=== PATIENT | female | born 1995 | race Caucasian/White ===

== ENCOUNTER 2022-11-12 08:57 | Outpatient (RCR) | payer OTHER, SELFPAY | END 2023-03-06 09:00 | disposition home or self-care (01) | LOC: PT 08:57 | PROVIDERS: PCP Nurse Practitioner; Visit Provider Nurse Practitioner | DX: S16.1XXD Strain of muscle, fascia and tendon at neck level, subsequent encounter (principal) | CPT/HCPCS: 97010; 97014; 97110; 97140; 97163 ==

== ENCOUNTER 2023-02-03 19:42 | Outpatient (REF) | payer OTHER, SELFPAY | END 2023-02-03 19:43 | disposition home or self-care (01) | LOC: LAB 19:42 | PROVIDERS: PCP Nurse Practitioner; Visit Provider Obstetrics & Gynecology | DX: N64.52 Nipple discharge (principal) | CPT/HCPCS: 87070 ==

== ENCOUNTER 2023-03-11 14:25 | Outpatient (OUT) | payer OTHER, SELFPAY ==
--- NOTE | 2023-03-11 14:29 | US_ITS ---
[address] [address] Patient Name: KASSIE SHARIF MRN: [id number] date: 1995 Sex: F Assigned Patient Location: Current Patient Location: Accession/Order Number: [id number] Exam Date: 03/11/2023 14:35 Report Date: 03/11/2023 15:45 At the request of: KEO HAND Procedure: US pelvis w/ transvaginal EXAMINATION: US pelvis w/ transvaginal HISTORY: abnormal Menstrual cycle N92.6 COMPARISON: No relevant comparison available. FINDINGS: Transabdominal and transvaginal images The uterus is normal in size, contour and myometrial echotexture, anteverted. Uterus measures 7.9 x 4.8 x 5.6 cm. Areas of anechoic echogenicity in the cervix likely nabothian cysts. Endometrium measures 6.9 mm, normal. The right ovary is normal measuring 2.1 x 1.1 x 1.8 cm. Normal color Doppler flow. The left ovary is normal measuring 2.2 x 1.2 x 1.7 cm. Normal color Doppler flow. Dilated left periadnexal vessels, increased with Valsalva No ascites US/US pelvis w/ transvaginal IMPRESSION: Dilated left periadnexal vessels consider pelvic vascular congestion Electronically authenticated by: BONNIE RAZO Date: 03/11/2023 15:45
--- OUTSIDE RECORDS SUMMARY | 2023-03-11 14:29 | XMS_ITS | CCD ---
Author Name Unknown Address [id number] [place] [address] Organization [facility] Care Team Providers Care [employer]er [employer] Material Name Role Phone Emily MICHAEL Primary Care Physician Caroline SINGH Unavailable Leslie Cardenas Unavailable Unavailable West, DR Reddy Consulting Unavailable REQUEST, NONE LISTED Primary Care Unavaila ble PEACE, DR CROWLEY Attending Unavailable PEACE, DR CROWLEY Admitting Unavailable PEACE, DR CROWLEY Consulting Unavailable PEACE, DR CROWLEY Consulting Unavailable REQUEST, NONE LISTED Primary Care Unavaila ble PEACE, DR CROWLEY Attending Unavailable PEACE, DR CROWLEY Admitting Unavailable PEACE, DR CROWLEY Consulting Unavailable REQUEST, DR NONE LISTED Primary Care Unavaila ble PEACE, DR CROWLEY Attending Unavailable PEACE, DR CROWLEY Admitting Unavailable REQUEST, DR KING LISTED Primary Care Unavaila ble PEACE, DR CROWLEY Attending Unavailable PEACE, DR CROWLEY Admitting Unavailable PEACE, DR CROWLEY Consulting Unavailable REQUEST, DR NONE LISTED Primary Care Unavaila ble PEACE, DR CROWLEY Attending Unavailable PEACE, DR CROWLEY Admitting Unavailable PEACE, DR CROWLEY Consulting Unavailable REQUEST, NONE LISTED Primary Care Unavaila ble PEACE, DR CROWLEY Attending Unavailable PEACE, DR CROWLEY Admitting Unavailable KARASIK, DR REYES Consulting Unavailable REQUEST, NONE LISTED Primary Care Unavaila ble KARASIK, DR REYES Attending Unavailable KARASIK, DR REYES Admitting Unavailable West, DR Reddy Consulting Unavailable FERNANDA, DR GIBSON Consulting Unavailab le KARASIK, DR REYES Consulting Unavailable REQUEST, NONE LISTED Primary Care Unavaila ble KARASIK, DR REYES Attending Unavailable KARASIK, DR REYES Admitting Unavailable PEACE, DR CROWLEY Consulting Unavailable KARASIK, DR REYES Procedure Practitioner Unava ilable PEACE, DR CROWLEY Consulting Unavailable REQUEST, DR NONE LISTED Primary Care Unavaila ble PEACE, DR CROWLEY Attending Unavailable PEACE, DR CROWLEY Admitting Unavailable ZIEBER, DR EVELYN Velasquez Consulting Unavailable PEACE, DR CROWLEY Consulting Unavailable REQUEST, NONE LISTED Primary Care Unavaila ble PEACE, DR CROWLEY Attending Unavailable PEACE, DR CROWLEY Admitting Unavailable PEACE, DR CROWLEY Consulting Unavailable REQUEST, NONE LISTED Primary Care Unavaila ble PEACE, DR CROWLEY Attending Unavailable PEACE, DR CROWLEY Admitting Unavailable KARASIK, DR REYES Consulting Unavailable REQUEST, DR NONE LISTED Primary Care Unavaila ble KARASIK, DR REYES Attending Unavailable KARASIK, DR REYES Admitting Unavailable PEACE, DR CROWLEY Consulting Unavailable REQUEST, DR NONE LISTED Primary Care Unavaila ble PEACE, DR CROWLEY Attending Unavailable PEACE, DR CROWLEY Admitting Unavailable PEACE, DR CROWLEY Consulting Unavailable REQUEST, NONE LISTED Primary Care Unavaila ble PEACE, DR CROWLEY Attending Unavailable PEACE, DR CROWLEY Admitting Unavailable Charlotte, DR Reddy Consulting Unavailable REQUEST, NONE LISTED Primary Care Unavaila ble PEACE, DR CROWLEY Attending Unavailable PEACE, DR CROWLEY Admitting Unavailable PEACE, DR CROWLEY Consulting Unavailable KATELYN ROBERTS Primary Care Physician Katelyn Randolph Primary Care Physician Cecilia Tijerina Unavailable Unavailable KEO HAND Attending Unavailable Lee Weiss Attending Unavailab le Lee Weiss Admitting Unavailab le NO FAMILY, PHYSICIAN Primary Care Unavailable Huang FLORES Attending Unavailable NONE, XXXX Referring Unavailable Huang FLORES Admitting Unavailable Katelyn Randolph Admitting Unavailable Katelyn Randolph Referring Unavailable Katelyn Randolph Attending Unavailable Huang FLORES Referring Unavailable Huang FLORES Attending Unavailable Huang FLORES Consulting Unavailable Huang FLORES Admitting Unavailable Huang FLORES Consulting Unavailable Huang FLORES Consulting Unavailable Drake Genao Attending Unavailable Sheila Smith Attending Unavailable SIDELL, KATELYN W Attending Unavailable SIDELL, KATELYN W Attending Unavailable Tomasa, Katelyn L Attending Unavailable Tomasa, Katelyn L Admitting Unavailable Tomasa, Katelyn L Referring Unavailable Tomasa, Katelyn L Attending Unavailable Tomasa, Katelyn L Attending Unavailable Tomasa, Katelyn L Attending Unavailable Tomasa, Katelyn L Attending Unavailable Tomasa, Katelyn L Attending Unavailable Tomasa, Katelyn L Attending Unavailable SIDELL, KATELYN W Attending Unavailable SIDELL, KATELYN W Admitting Unavailable AMIR, Hasan Admitting Unavailable AMIR, Hasan Attending Unavailable KapWilbert garcia Consulting Unavailable KapWilbert garcia Consulting Unavailable Kapjose, DO Wilbert Schmidt Consulting Unavailable Wilbert Viveros Consulting Unavailable Quintin Murcia Attending Unavailable Huang FLORES Attending Unavailable Huang FLORES Admitting Unavailable Tomasa, Katelyn L Referring Unavailable Tomasa, Katelyn L Admitting Unavailable HAWTHORNEGIOVANNI Attending Unavailable Drake Genao Admitting Unavailable ChadwickDrake Referring Unavailable ChadwickDrake Attending Unavailable Tomasa, Katelyn L Attending Unavailable Tomasa, Katelyn L Admitting Unavailable Tomasa, Katelyn L Referring Unavailable Tomasa, Katelyn L Attending Unavailable Tomasa, Katelyn L Admitting Unavailable Tomasa, Katelyn L Referring Unavailable SIDELL, KATELYN W Attending Unavailable SIDELL, KATELYN W Admitting Unavailable ChadwickDrake Admitting Unavailable ChadwickDrake Attending Unavailable SIDELL, KATELYN Dietz Attending Unavailable Tomasa, Katelyn L Attending Unavailable Nicolas Izquierdo Attending Unavailable Quintin Murcia Attending Unavailable Winnie Paula Attending Unavailable Quintin Murcia Attending Unavailable Winnie Paula Attending Unavailable Allergies Allergy Classification Reported Allergen(s) Allergy Type Date of Onset Reaction(s) Facility (20 sources) Clindamycin; Translations: [clindamycin] Drug Allergy [facility] (1 source) Clindamycin Drug Allergy [facility] Repository (1 source) Cephalexin; Translations: [Keflex] Drug Allergy [facility] Repository Medications Current Medications Medication Drug Class(es) Dates Sig (Normalized) Sig (Original) amoxicillin 500 mg oral tablet (1 source) Penicillin-class Antibacterial Start: 05-13-2022 End: 05-20-2022 take 2 tablets by mouth twice daily amoxicillin 500 mg oral tablet 1,000 mg = 2 tab(s), Oral, BID, X 7 day(s), # 28 tab(s), Refills(s) 0, Pharmacy: [facility]/pharmacy #[id number], 170.2, cm, 05/11/22 21:11:00 EST, Height/Length Dosing, 77.3, kg, 05/11/22 21:11:00 EST, Weight Dosing Start Date: 05/13/22 Stop Date: 05/20/22 Status: Ordered Aspirin (13 sources) Platelet Aggregation Inhibitor, Nonsteroidal Anti-inflammatory Drug Start: 11-09-2022 [facility] ASPIRIN EC 81 MG TABLET [facility] ASPIRIN EC 81 MG TABLET, 0 Start Date: 11/09/22 Status: Ordered Start: 11-02-2022 End: 11-09-2022 take 1 tablet by mouth once daily aspirin 81 mg Oral EC Tab 81 mg = 1 tab(s), Oral, Daily, X 7 day(s), # 7 tab(s), Refills(s) 0, Pharmacy: [facility]/pharmacy #[id number], 172, cm, 11/01/22 13:44:00 EDT, Height/Length Dosing, 73, kg, 11/01/22 13:44:00 EDT, Weight Dosing Start Date: 11/02/22 Stop Date: 11/09/22 Status: Ordered cephalexin 500 mg oral capsule (4 sources) Cephalosporin Antibacterial Start: 12-20-2022 take 1 capsule by mouth every eight hours Keflex 500 mg Cap 500 mg = 1 cap(s), Oral, q8hr, # 30 cap(s), Refills(s) 0, Pharmacy: [facility]/pharmacy #[id number], 170, cm, 12/16/22 14:03:00 EDT, Height/Length Dosing, 71.4, kg, 12/16/22 14:03:00 EDT, Weight Dosing Start Date: 12/20/22 Status: Ordered Start: 11-15-2022 End: 11-20-2022 take 1 capsule by mouth every eight hours Keflex 500 mg Cap 500 mg = 1 cap(s), Oral, q8hr, X 5 day(s), # 15 cap(s), Refills(s) 0, Pharmacy: [facility]/pharmacy #[id number], 170, cm, 11/15/22 10:07:00 EDT, Height/Length Dosing, 71.2, kg, 11/15/22 10:07:00 EDT, Weight Dosing Start Date: 11/15/22 Stop Date: 11/20/22 Status: Ordered dicyclomine hydrochloride 10 mg oral capsule (1 source) Anticholinergic Start: 02-15-2023 End: 02-17-2023 take 1 capsule by mouth four times daily Bentyl 10 mg Cap 10 mg = 1 cap(s), Oral, QID, X 2 day(s), # 8 cap(s), Refills(s) 0, Pharmacy: [facility]/pharmacy #[id number], 170, cm, 02/15/23 15:41:00 EST, Height/Length Dosing, 71.3, kg, 02/15/23 15:41:00 EST, Weight Dosing Start Date: 02/15/23 Stop Date: 02/17/23 Status: Ordered 12 hr dilTIAZem hydrochloride 120 mg extended release oral capsule (5 sources) Calcium Channel Angela Start: 12-21-2022 End: 03-21-2023 take 1 capsule by mouth once daily diltiazem 120 mg oral capsule, extended release 120 mg = 1 cap(s), Oral, Daily, X 30 day(s), # 30 cap(s), Refills(s) 2, Pharmacy: [facility]/pharmacy #[id number], 170, cm, 12/16/22 14:03:00 EDT, Height/Length Dosing, 71.4, kg, 12/16/22 14:03:00 EDT, Weight Dosing Start Date: 12/21/22 Stop Date: 03/21/23 Status: Ordered FLUoxetine 10 mg oral tablet (16 sources) Serotonin Reuptake Inhibitor Start: 12-29-2022 take 1 tablet by mouth once daily fluoxetine 10 mg oral tablet 10 mg = 1 tab(s), Oral, Daily, # 30 tab(s), Refills(s) 3, Pharmacy: [facility]/pharmacy #[id number], 170, cm, 12/16/22 14:03:00 EDT, Height/Length Dosing, 71.4, kg, 12/29/22 13:44:00 EDT, Weight Dosing Start Date: 12/29/22 Status: Ordered Start: 11-22-2022 take 1 capsule by [facility] once daily Prozac 20 mg Cap 20 mg = 1 cap(s), Oral, Daily, # 30 cap(s), Refills(s) 2, Pharmacy: [facility]/pharmacy #[id number], 170, cm, 11/15/22 10:07:00 EDT, Height/Length Dosing, 71.2, kg, 11/15/22 10:07:00 EDT, Weight Dosing Start Date: 11/22/22 Status: Ordered Start: 04-02-2020 take 20 mg by mouth once daily Prozac 20 mg, Oral, Daily, Refills(s) 0 Start Date: 04/02/20 Status: Ordered fluticasone propionate 0.05 mg/actuat metered dose nasal spray (4 sources) Corticosteroid Start: 03-05-2022 Flonase 0.05 mg/inh [place] 2 spray(s), Nasal, Daily, 16 gram, Refill(s) 0, each nostril, [facility]/pharmacy #[id number], 170, cm, 03/04/22 21:57:00 EST, Height/Length Dosing, 76.1, kg, 03/04/22 21:57:00 EST, Weight Dosing Start Date: 03/05/22 Status: Ordered LORazepam 0.5 mg oral tablet (1 source) Benzodiazepine Start: 02-23-2023 take 0.25 mg by mouth once as needed for anxiety Ativan 0.5 mg Tab 0.25 mg = 0.5 tab(s), Oral, Once, PRN as needed for anxiety, # 10 tab(s), Refills(s) 0, Pharmacy: [facility]/pharmacy #[id number], 170, cm, 02/23/23 10:36:00 EST, Height/Length Dosing, 71.7, kg, 02/23/23 10:36:00 EST, Weight Dosing Start Date: 02/23/23 Status: Ordered lurasidone hydrochloride 20 mg oral tablet (6 sources) Atypical Antipsychotic Start: 02-01-2021 take 1 tablet by mouth once daily Latuda 20 mg oral tablet 20 mg = 1 tab(s), Oral, Daily, # 30 tab(s), Refills(s) 0 Start Date: 02/01/21 Status: Ordered meloxicam 7.5 mg oral tablet (2 sources) Nonsteroidal Anti-inflammatory Drug Start: 04-21-2022 take 1 tablet by mouth once daily meloxicam 7.5 mg Tab 7.5 mg = 1 tab(s), Oral, Daily, # 30 tab(s), Refills(s) 0, [id number] 170, cm, 04/20/22 15:18:00 EST, Height/Length Dosing, 74.9, kg, 04/20/22 15:18:00 EST, Weight Dosing Start Date: 04/21/22 Status: Ordered naproxen 500 mg oral tablet (8 sources) Nonsteroidal Anti-inflammatory Drug Start: 12-01-2022 take 1 tablet by mouth twice daily as needed for pain Naprosyn 500 mg Tab 500 mg = 1 tab(s), Oral, BID, PRN for pain, # 20 tab(s), Refills(s) 0, [id number] 170, cm, 11/30/22 23:49:00 EDT, Height/Length Dosing, 71.8, kg, 11/30/22 23:49:00 EDT, Weight Dosing Start Date: 12/01/22 Status: Ordered Start: 09-13-2021 End: 09-20-2021 take 1 tablet by mouth twice daily Naprosyn 500 mg Tab 500 mg = 1 tab(s), Oral, BID, X 7 day(s), # 14 tab(s), Refills(s) 0, [id number] 170, cm, 09/13/21 12:18:00 EDT, Height/Length Dosing, 75, kg, 09/13/21 12:18:00 EDT, Weight Dosing Start Date: 09/13/21 Stop Date: 09/20/21 Status: Ordered polymyxin b 34431 unt/ml / trimethoprim 1 mg/ml ophthalmic solution (1 source) Dihydrofolate Reductase Inhibitor Antibacterial, Polymyxin-class Antibacterial Start: 07-02-2022 End: 07-09-2022 Polytrim 10 mL Soln-Opth 1 drop(s), OPTH, q3hr for 7 day(s), 10 mL, Refill(s) 0, [facility]/pharmacy #[id number], 172, cm, 07/02/22 11:32:00 EDT, Height/Length Dosing, 73.1, kg, 07/02/22 11:32:00 EDT, Weight Dosing Start Date: 07/02/22 Stop Date: 07/09/22 Status: Ordered sertraline 25 mg oral tablet (4 sources) Serotonin Reuptake Inhibitor Start: 01-26-2023 take 1 tablet by mouth once daily sertraline 25 mg Tab 25 mg = 1 tab(s), Oral, Daily, # 30 tab(s), Refills(s) 2, Pharmacy: [facility]/pharmacy #[id number], 170, cm, 12/16/22 14:03:00 EDT, Height/Length Dosing, 71.4, kg, 12/29/22 13:44:00 EDT, Weight Dosing Start Date: 01/26/23 Status: Ordered Zofran ODT 4 mg Tab-Dis (3 sources) Start: 02-10-2023 take 1 tablet by mouth three times daily Zofran ODT 4 mg Tab-Dis 4 mg = 1 tab(s), Oral, TID, # 15 tab(s), Refills(s) 0, Pharmacy: [facility]/pharmacy #[id number], 170, cm, 02/10/23 12:01:00 EST, Height/Length Dosing, 71.2, kg, 02/10/23 12:01:00 EST, Weight Dosing Start Date: 02/10/23 Status: Ordered Completed/Discontinued Medications Medication Drug Class(es) Dates Sig (Normalized) Sig (Original) baclofen 10 mg oral tablet (1 source) gamma-Aminobutyri c Acid-ergic Agonist Start: 11-03-2022 End: 11-13-2022 take 1 tablet by mouth three times daily at bedtime baclofen 10 mg Tab 10 mg = 1 tab(s), Oral, TID, If patient prefers she can take 1 tablet 1 to 2 hours before bedtime instead of taking 3 times daily., X 10 day(s), # 30 tab(s), Refills(s) 0, Pharmacy: [facility]/pharmacy #[id number], 172, cm, 11/01/22 13:44:00 EDT, Height/Length Dos... Start Date: 11/03/22 Stop Date: 11/13/22 Status: Ordered penicillin v potassium 500 mg oral tablet (1 source) Start: 09-13-2021 End: 09-23-2021 take 1 tablet by mouth three times daily penicillin V potassium 500 mg Tab 500 mg = 1 tab(s), Oral, TID, Take one tab by mouth 3 times a day. # 30, X 10 day(s), # 30 tab(s), Refills(s) 0, Pharmacy: [facility]/pharmacy #[id number], 170, cm, 09/13/21 12:18:00 EDT, Height/Length Dosing, 75, kg, 09/13/21 12:18:00 EDT, Weight Dosing Start Date: 09/13/21 Stop Date: 09/23/21 Status: Ordered Problems Active Problems Problem Classification Problem Date Documented Da te Episodic/Chronic Abdominal pain (20 sources) Pain in pelvis; Translations: [Pelvic and perineal pain] Onset: 07-01-2021 04-15-2020 Episodic Anxiety disorders (20 sources) Posttraumatic stress disorder; Translations: [Anxiety] 07-11-2018 Chronic Cardiac dysrhythmias (10 sources) Palpitations; Translations: [Palpitations] Onset: 11-15-2022 Episodic Disorders of teeth and jaw (1 source) Disorder of teeth AND/OR supporting structures; Translations: [Other specified disorders of teeth and supporting structures] Onset: 09-13-2021 Episodic Fluid and electrolyte disorders (1 source) Hypokalemia; Translations: [Hypokalemia] Onset: 02-15-2023 Episodic Headache; including migraine (20 sources) Migraine 05-18-2013 Chronic Headache; including migraine (1 source) Headache; Translations: [Headache, unspecified] Onset: 09-29-2022 Episodic Headache; including migraine (1 source) Headache; including migraine; Translations: [HEADACHE UNSPECIFIED] Onset: 08-12-2021 Inflammation; infection of eye (except that caused by tuberculosis or sexually transmitteddisease) (17 sources) Conjunctivitis; Translations: [Unspecified conjunctivitis] Onset: 07-02-2022 Episodic Inflammatory diseases of female pelvic organs (20 sources) Vulvovaginitis 11-28-2020 Episodic Menstrual disorders (20 sources) 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 Miscellaneous mental health disorders (20 sources) 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 Mood disorders (20 sources) Depressive disorder; Translations: [Moderate mixed bipolar I disorder] Onset: 11-01-2022 05-18-2013 Chronic Nausea and vomiting (1 source) Nausea and vomiting; Translations: [Nausea with vomiting, unspecified] Onset: 02-10-2023 Episodic Nonmalignant breast conditions (1 source) Pain of breast; Translations: [Mastodynia] Onset: 11-15-2022 Episodic Other connective tissue disease (20 sources) Hand pain 04-21-2022 Episodic Other female genital disorders (4 sources) Postcoital and contact bleeding; Translations: [POSTCOITAL AND CONTACT BLEEDING] Onset: 01-20-2022 Chronic Other gastrointestinal disorders (2 sources) Diarrhea; Translations: [Diarrhea, unspecified] Onset: 02-10-2023 Episodic Other nervous system disorders (20 sources) 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 Other nervous system disorders (1 source) Paresthesia; Translations: [Paresthesia of skin] Onset: 11-01-2022 Episodic Other screening for suspected conditions (not mental disorders or infectious disease) (20 sources) Encounter for screening for malignant neoplasm of cervix; Translations: [Abnormal cytological findings in specimens from other organs, systems and tissues] Onset: 04-21-2021 Episodic Other upper respiratory infections (2 sources) Acute upper respiratory infection; Translations: [Acute upper respiratory infection, unspecified] Onset: 05-11-2022 Episodic Residual codes; unclassified (1 source) General finding of observation of patient; Translations: [Other general symptoms and signs] Onset: 03-04-2022 Episodic Residual codes; unclassified (1 source) Patient encounter status; Translations: [Other specified health status] Onset: 11-01-2022 Episodic Skin and subcutaneous tissue infections (20 sources) Cellulitis of lower limb 11-28-2020 Episodic Sprains and strains (20 sources) Neck sprain; Translations: [Sprain of joints and ligaments of unspecified parts of neck, initial encounter] Onset: 11-03-2022 Episodic Substance-related disorders (20 sources) Smoker 06-24-2020 Chronic Comment on above: Added secondary to d ocumentation in Social History. Suicide and intentional self-inflicted injury (20 sources) Suicidal thoughts 01-09-2014 Episodic Unclassified (1 source) CONTACT W/AND (SUSP) EXPOS COVID-19; Translations: [CONTACT W/AND (SUSP) EXPOS COVID-19] Onset: 08-24-2021 Unclassified (20 sources) Patient encounter status 04-21-2022 Past or Other Problems Problem Classification Problem Date Documented Da te Episodic/Chronic Crushing injury or internal injury (20 sources) Laceration of kidney without open wound into abdominal cavity Onset: 03-07-2008 09-21-2019 Episodic Immunizations and screening for infectious disease (4 sources) Contact with and (suspected) exposure to infections with a predominantly sexual mode of transmission; Translations: [CONTCT W EXPOS INFECT SEXUAL TRNSMS] Onset: 01-13-2022 Episodic Other complications of ; puerperium affecting management of mother (1 source) Streptococcus B carrier state complicating childbirth; Translations: [STREP B [place] COMP CHILDBIRTH] Onset: 08-24-2021 Episodic Other complications of (2 sources) Streptococcus B carrier state complicating ; Translations: [STREP B [place] COMP ] Onset: 08-14-2021 Episodic Other complications of (4 sources) Other specified related conditions, third trimester; Translations: [OTH SPEC PREG RELATED COND 3RD TRI] Onset: 08-09-2021 Episodic Other complications of (4 sources) Other specified related conditions, unspecified trimester; Translations: [OTH SPEC PREG RELATED COND UNS TRI] Onset: 06-02-2021 Episodic Other female genital disorders (5 sources) Other specified noninflammatory disorders of vagina; Translations: [OTH SPEC NONINFLAMMATORY D/O VAGINA] Onset: 10-22-2021 Episodic Other gastrointestinal disorders (1 source) Heartburn; Translations: [HEARTBURN] Onset: 08-12-2021 Episodic Other non-traumatic joint disorders (1 source) Pain in right shoulder; Translations: [PAIN IN RIGHT SHOULDER] Onset: 08-12-2021 Episodic Other and delivery including normal (1 source) Single live ; Translations: [SINGLE LIVE ] Onset: 08-24-2021 Episodic Residual codes; unclassified (1 source) 39 weeks gestation of ; Translations: [39 WEEKS GESTATION OF ] Onset: 08-24-2021 Episodic Residual codes; unclassified (1 source) 38 weeks gestation of ; Translations: [38 WEEKS GESTATION OF ] Onset: 08-12-2021 Episodic Residual codes; unclassified (1 source) 32 weeks gestation of ; Translations: [32 WEEKS GESTATION OF ] Onset: 07-01-2021 Episodic Residual codes; unclassified (1 source) 28 weeks gestation of ; Translations: [28 WEEKS GESTATION OF ] Onset: 06-04-2021 Episodic Residual codes; unclassified (1 source) Unspecified blood type, Rh negative; Translations: [UNSPECIFIED BLOOD TYPE RH NEGATIVE] Onset: 06-04-2021 Episodic Umbilical cord complication (1 source) Labor and delivery complicated by cord around neck, without compression, not applicable or unspecified; Translations: [L AND D COMP CORD NECK NO COMPRS NA/UNS] Onset: 08-24-2021 Episodic Unclassified (1 source) orthostatic fainting( Confirmed ) 08-06-2012 Unclassified (20 sources) Onset: 11-05-2012 Resolved: 01-26-2019 09-12-2014 Unclassified (20 sources) orthostatic fainting 08-06-2012 Viral infection (1 source) Disease caused by 2019-nCoV; Translations: [COVID-19] Onset: 01-06-2022 Results Test Name Value Interpretation Reference Range Facility Discharge Note - PTon 2022 Discharge Note - PT [id number] 20 [id number]#1.0 0TIFF [facility] Consent for Treatmenton 02-05 Consent for Treatment [id number] 0TIFF [facility] Medication Consenton 023 Medication Consent [id number] 0TIFF [facility] Ambulatory Visit Summaryon 1 04-26-2022 Ambulatory Visit Summary [facility] Family Medicine Office/Clini c Noteon 02-23-2023 Family Medicine Office/Clinic Note [facility] Comment on above: Result Comment: Elec tronically Signed By: Katelyn Mora.br\Date and Time Signed: 02/23/23 10:59 EST ED Note-Physicianon 02-22-20 ED Note-Physician [facility] Comment on above: Result Comment: Elec tronically Signed By: Marleen Tapia PA-C\.br\Date and Time Signed: 02/15/23 18:28 EST\.br\Electronically Co-Signed By: Nicolas Izquierdo DO\.br\Date and Time Co-Signed: 02/21/23 07:20 EST PT - Progress Noteson 2022 PT - Progress Notes [id number] 20 [id number] 0TIFF Normal [facility] Rota Abon 02-17-2023 Rotavirus Ag IA Ql (Stl) Negative Invalid Interpretation Code Negative [facility] Comment on above: Result Comment: Perf ormed at: [facility] [address] [id number] PhD Filipe Cisneros Performed By: #### 3 [id number] ####[facility] [address] [place] [address] Auto Diffon 02-15-2023 Basophils/100 WBC (Bld) 0.8 % Normal 0.0-2.0 [facility] Comment on above: Order Comment: Order Added by Discern Expert. Performed By: #### 2 [id number] ####[facility] [address] [place] [address] Basophils/Leukocytes Auto (Bld) [Pure # fraction] 0.0 E9/L Normal 0.0-0.2 [facility] Comment on above: Order Comment: Order Added by Discern Expert. Performed By: #### 2 [id number] ####[facility] [address] [place] [address] Eosinophils/100 WBC (Bld) 2.2 % Normal 0.0-8.0 [facility] Comment on above: Order Comment: Order Added by Discern Expert. Performed By: #### 2 [id number] ####[address] [place] [address] Eosinophils/Leukocyte s Auto (Bld) [Pure # fraction] 0.1 E9/L Normal 0.0-0.5 [facility] Comment on above: Order Comment: Order Added by Discern Expert. Performed By: #### 2 [id number] ####[address] [place] [address] Lymphocytes/100 WBC (Bld) 31.6 % Normal 14.0-50.0 [facility] Comment on above: Order Comment: Order Added by Discern Expert. Performed By: #### 2 077714, 7314107, 6460108, 52228602, 7282457, 5328043 ####[address] [address] Lymphocytes/Leukocyte s Auto (Bld) [Pure # fraction] 1.7 E9/L Normal 1.0-4.0 [facility] Comment on above: Order Comment: Order Added by Discern Expert. Performed By: #### 2 804838, 8916412, 2536606, 24518644, 5207671, 4958138 ####[address] [place] [address] Monocytes/100 WBC (Bld) 7.8 % Normal 4.0-14.0 [facility] Comment on above: Order Comment: Order Added by Discern Expert. Performed By: #### 2 635227, 8114521, 5190987, 71049781, 3899854, 5133037 ####[address] [place] [address] Monocytes/Leukocytes Auto (Bld) [Pure # fraction] 0.4 E9/L Normal 0.2-1.0 [facility] Comment on above: Order Comment: Order Added by Discern Expert. Performed By: #### 2 085606, 6124801, 9430750, 77625331, 7131020, 7603531 ####[facility] [address] [place] [address] Neutrophils/100 WBC (Bld) 57.6 % Normal 36.0-75.0 [facility] Comment on above: Order Comment: Order Added by Discern Expert. Performed By: #### 2 110967, 4345125, 1608594, 23897554, 6982661, 1064182 ####[address] [place] [address] Neutrophils/Leukocyte s Auto (Bld) [Pure # fraction] 3.2 E9/L Normal 2.0-7.5 [facility] Comment on above: Order Comment: Order Added by Discern Expert. Performed By: #### 2 601360, 4911843, 0322485, 33224478, 3780576, 4248499 ####[address] [place] [address] C. diff by PCRon 02-15-2023 Clostridium difficile by PCR Negative Normal Negative [facility] Comment on above: Order Comment: Order added by Discern Expert. Result Comment: This test result should be correlated with clinical presentations and medical history by a healthcare provider to determine its clinical significance. Performed By: #### 3 2378389, 26161766, 231764882, [id number] ####[address] [place] [address] CBC w/ Auto Diffon Erythrocyte distribution width (RBC) [Ratio] 12.9 % Normal 10.9-14.2 [facility] Comment on above: Performed By: #### 2 629759, 1048026, 0459442, 54963839, 6034630, 1284431 ####[address] [place] [address] Hematocrit (Bld) [Volume fraction] 36.3 % Normal 34.0-46.0 [facility] Comment on above: Performed By: #### 2 415159, 3871332, 0811397, 63455796, 7780549, 4553157 ####[address] [place] [address] Hemoglobin (Bld) [Mass/Vol] 12.3 g/dL Normal 12.0-16.0 [facility] Comment on above: Performed By: #### 2 518333, 7998117, 3840156, 56755155, 0074481, 5743094 ####[facility] [address] [place] [address] MCH (RBC) [Entitic mass] 29.2 pg Normal 27.0-34.0 [facility] Comment on above: Performed By: #### 2 225252, 8630365, 4053197, 51211526, 9841301, 9176936 ####[facility] [address] [place] [address] MCHC (RBC) [Mass/Vol] 34.0 g/dL Normal 31.4-36.0 [facility] Comment on above: Performed By: #### 2 150410, 2134377, 7847379, 72173551, 7139221, 7179068 ####[facility] [address] [place] [address] MCV (RBC) [Entitic vol] 85.8 fL Normal 80.0-100.0 [facility] Comment on above: Performed By: #### 2 582728, 8537170, 0792973, 98904369, 1042394, 5307054 ####[address] [place] [address] Platelet mean volume (Bld) [Entitic vol] 8.3 fL Normal 6.4-10.8 [facility] Comment on above: Performed By: #### 2 538012, 3763409, 9732684, 24431468, 6090627, 9327029 ####[address] [place] [address] Platelets (Bld) [#/Vol] 246.0 E9/L Normal 150.0-500.0 [facility] Comment on above: Performed By: #### 2 391512, 3536999, 9681648, 24440305, 0982275, 8372001 ####[facility] [address] [place] [address] RBC (Bld) [#/Vol] 4.2 E12/L Low 4.3-5.9 [facility] Comment on above: Performed By: #### 2 280966, 5571372, 7127725, 00404802, 2573241, 5557583 ####[facility] [address] [place] [address] WBC corrected for nucl RBC Auto (Bld) [#/Vol] 5.5 E9/L Normal 4.0-11.0 [facility] Comment on above: Performed By: #### 2 895276, 3987304, 7923729, 66655134, 2839126, 9138734 ####[facility] [address] [place] [address] CDiff PCRon 02-15-2023 Cdiff Specimen Acceptable Acceptable Normal [facility] Comment on above: Performed By: #### 3 6068015, 44552577, 146418560, 1331572237 ####[facility] [address] [place] [address] Order Cancelled No, PCR to follow Normal [facility] Comment on above: Performed By: #### 3 5790631, 73281465, 159874305, 8008869248 ####[facility] [address] [place] [address] CHEMISTRYOrdered By: SYSTEM SYSTEM on 02-15-2023 Albumin [Mass/Vol] 4.1 g/dL Normal 3.3 - 5.0 gm/dL Remisol Chem Albumin/Globulin [Mass ratio] 1.9 {ratio} Normal 1.1 - 2.2 [facility] Alk Phos 66 [iU]/d Normal 21 - 98 Int._Unit/L Remisol Chem ALT 11 [iU]/d Normal 6 - 46 Int._Unit/L Remisol Chem Anion gap [Moles/Vol] 11 mmol/L Normal 6 - 16 mEq/L R emisol Chem AST 12 [iU]/d Normal 5 - 43 Int._Unit/L Remisol Chem Bili Total 0.2 mg/dL Normal 0.0 - 1.1 mg/dL [facility] Calcium [Mass/Vol] 8.7 mg/dL Low 8.9 - 11. 1 mg/dL [facility] Chloride [Moles/Vol] 112 mmol/L High 101 - 1 11 mmol/L Remisol Chem CO2 [Moles/Vol] 22 mmol/L Normal 21 - 31 mmol/L [facility] Creatinine [Mass/Vol] 0.7 mg/dL Normal 0.5 - 1.3 mg/dL [facility] eGFR mL/min/1.73 m2 Normal >=59mL/min/1 .73 m2 [facility] Globulin (S) [Mass/Vol] 2.2 g/dL Normal 1.4 - 4.0 gm/dL [facility] Glucose [Mass/Vol] 80 mg/dL Normal 55 - 199 mg/dL [facility] Lipase Lvl 39 unit/L Normal 13 - 58 unit/L [facility] Magnesium [Mass/Vol] 1.8 mg/dL Normal 1.3 - 2 .4 mg/dL [facility] Potassium [Moles/Vol] 3.1 mmol/L Low 3.5 - 5.3 mmol/L Rem[facility] Chem Protein [Mass/Vol] 6.3 g/dL Normal 6.0 - 7.8 gm/dL [facility] Sodium [Moles/Vol] 142 mmol/L Normal 135 - 145 mmol/L Rem[facility] Urea nitrogen [Mass/Vol] 11 mg/dL Normal 5 - 21 mg/dL [facility] Urea nitrogen/Creatinine [Mass ratio] 16 mg/mg Normal 10 - 20 Remisol Chem CMPon 02-15-2023 Albumin [Mass/Vol] 4.1 g/dL Normal 3.3-5.0 [facility] Comment on above: Performed By: #### 2 800202, 1314708, 1644325, 39782579, 7464464, 5431372 ####[facility] [address] [place] [address] Albumin/Globulin [Mass ratio] 1.9 {ratio} Normal 1.1-2.2 [facility] Comment on above: Performed By: #### 2 966854, 0813198, 8438187, 31261786, 2759107, 8809313 ####[facility] [address] [place] [address] Alk Phos 66 Int._Unit/L Normal 21-98 [facility] Comment on above: Performed By: #### 2 068969, 0732961, 9687800, 21372877, 1467912, 6623259 ####[facility] [address] [place] [address] ALT 11 Int._Unit/L Normal 6-46 [facility] Comment on above: Performed By: #### 2 107432, 7785345, 5998416, 43444034, 2007253, 9787941 ####[address] [place] [address] Anion gap [Moles/Vol] 11 mmol/L Normal 6-16 [facility] Comment on above: Performed By: #### 2 085631, 7540019, 1338729, 29124837, 7215634, 3321726 ####[facility] [address] [place] [address] AST 12 Int._Unit/L Normal 5-43 [facility] Comment on above: Performed By: #### 2 439015, 8203406, 0917765, 64053018, 5010925, 5873636 ####[facility] [address] [place] [address] Bili Total 0.2 mg/dL Normal 0.0-1.1 [facility] Comment on above: Performed By: #### 2 974699, 6639238, 0396053, 61764040, 5924460, 7482316 ####[address] [place] [address] BUN/Creat Ratio 16 No Units Normal 10-20 [facility] Comment on above: Performed By: #### 2 599588, 9500796, 5795358, 52311141, 7976164, 9409772 ####[address] [place] [address] Calcium [Mass/Vol] 8.7 mg/dL Low 8.9-11.1 [facility] Comment on above: Performed By: #### 2 651021, 1840240, 7038015, 23729121, 3354710, 6632698 ####[facility] [address] [place] [address] Chloride [Moles/Vol] 112 mmol/L High 101-111 [facility] Comment on above: Performed By: #### 2 338966, 2779377, 6912579, 71948033, 5382544, 3067440 ####[facility] [address] [place] [address] CO2 [Moles/Vol] 22 mmol/L Normal 21-31 [facility] Comment on above: Performed By: #### 2 401702, 3364303, 8621476, 61364262, 9377877, 0780058 ####[facility] [address] [place] [address] Creatinine [Mass/Vol] 0.7 mg/dL Normal 0.5-1.3 [facility] Comment on above: Performed By: #### 2 790075, 7198969, 6419414, 97089832, 5491656, 0770641 ####[facility] [address] [place] [address] Globulin (S) [Mass/Vol] 2.2 g/dL Normal 1.4-4.0 [facility] Comment on above: Performed By: #### 2 037909, 7784198, 0755863, 45813438, 0678819, 9774285 ####[facility] [address] [place] [address] Glucose [Mass/Vol] 80 mg/dL Normal 55-199 [facility] Comment on above: Performed By: #### 2 193943, 3372995, 6781130, 03622145, 8849726, 6032238 ####[facility] [address] [place] [address] Potassium [Moles/Vol] 3.1 mmol/L Low 3.5-5.3 [facility] Comment on above: Performed By: #### 2 183055, 0472933, 6153577, 19282175, 3000569, 5778506 ####[facility] [address] [place] [address] Protein [Mass/Vol] 6.3 g/dL Normal 6.0-7.8 [facility] Comment on above: Performed By: #### 2 452208, 7638409, 9050665, 56448725, 6894543, 2353904 ####[facility] [address] [place] [address] Sodium [Moles/Vol] 142 mmol/L Normal 135-145 [facility] Comment on above: Performed By: #### 2 873725, 0845302, 6286898, 45352569, 6127802, 0792081 ####[facility] [address] [place] [address] Urea nitrogen [Mass/Vol] 11 mg/dL Normal 5-21 [facility] Comment on above: Performed By: #### 2 469858, 0265740, 5799861, 34777755, 2683266, 9948229 ####[facility] [address] [place] [address] Consent for Treatmenton 02-04 Consent for Treatment [id number] [id number]#1.0 0TIFF Normal [facility] Discharge Instructionson Discharge Instructions [id number]#1. 00TIFF Normal [facility] ED Clinical Summaryon 2022 ED Clinical Summary Normal [facility] ED Note-Nursingon 02-15-2023 ED Note-Nursing Patient does not wan t IV at this time Normal [facility] ED Patient Education Noteon 02-15-2023 ED Patient Education Note Normal [facility] ED Patient Summaryon 023 ED Patient Summary Normal [facility] Fecal WBC Lactoferrinon 02-04 Lactoferrin Ql (Stl) Negative Normal Negative Fish er [facility] Comment on above: Result Comment: The semi-quantitative detection of elevated levels of fecal lactoferrin is a marker for fecal leukocytes and an indication of intestinal inflammation. Performed By: #### 3 4483550, 53551324, 427307081, 6163879592 ####[facility] [address] [place] [address] HEMATOLOGYOrdered By: SYSTEM SYSTEM on 02-15-2023 Basophils/100 WBC (Bld) 0.8 % Normal 0.0 - 2.0 % [facility] HemeAutoSS Basophils/Leukocytes Auto (Bld) [Pure # fraction] 0.0 E9/L Normal 0.0 - 0.2 E9/L [facility] HemeAutoSS Eosinophils/100 WBC (Bld) 2.2 % Normal 0.0 - 8.0 % [facility] HemeAutoSS Eosinophils/Leukocyte s Auto (Bld) [Pure # fraction] 0.1 E9/L Normal 0.0 - 0.5 E9/L [facility] HemeAutoSS Lymphocytes/100 WBC (Bld) 31.6 % Normal 14.0 - 50.0 % [facility] HemeAutoSS Lymphocytes/Leukocyte s Auto (Bld) [Pure # fraction] 1.7 E9/L Normal 1.0 - 4.0 E9/L [facility] HemeAutoSS Monocytes/100 WBC (Bld) 7.8 % Normal 4.0 - 14.0 % [facility] HemeAutoSS Monocytes/Leukocytes Auto (Bld) [Pure # fraction] 0.4 E9/L Normal 0.2 - 1.0 E9/L [facility] HemeAutoSS Neutrophils/100 WBC (Bld) 57.6 % Normal 36.0 - 75.0 % [facility] HemeAutoSS Neutrophils/Leukocyte s Auto (Bld) [Pure # fraction] 3.2 E9/L Normal 2.0 - 7.5 E9/L [facility] HemeAutoSS HEMATOLOGYOrdered By: Deirdre Oates on 02-15-2023 Erythrocyte distribution width (RBC) [Ratio] 12.9 % Normal 10.9 - 14.2 % [facility] HemeAutoSS Hematocrit (Bld) [Volume fraction] 36.3 % Normal 34.0 - 46.0 % [facility] HemeAutoSS Hemoglobin (Bld) [Mass/Vol] 12.3 g/dL Normal 12.0 - 16.0 gm/dL [facility] HemeAutoSS MCH (RBC) [Entitic mass] 29.2 pg Normal 27.0 - 34.0 pg [facility] HemeAutoSS MCHC (RBC) [Mass/Vol] 34.0 g/dL Normal 31.4 - 36.0 gm/dL [facility] HemeAutoSS MCV (RBC) [Entitic vol] 85.8 fL Normal 80.0 - 100.0 fL [facility] HemeAutoSS Platelet mean volume (Bld) [Entitic vol] 8.3 fL Normal 6.4 - 10.8 fL [facility] HemeAutoSS Platelets (Bld) [#/Vol] 246.0 E9/L Normal 150.0 - 500.0 E9/L [facility] HemeAutoSS RBC (Bld) [#/Vol] 4.2 E12/L Low 4.3 - 5.9 E12/L [facility] HemeAutoSS WBC corrected for nucl RBC Auto (Bld) [#/Vol] 5.5 E9/L Normal 4.0 - 11.0 E9/L [facility] HemeAutoSS Lipase Levelon 02-15-2023 Lipase Lvl 39 unit/L Normal 13-58 [facility] Comment on above: Performed By: #### 2 864408, 0565090, 4962799, 55452600, 6662358, 2333603 ####[facility] [address] [place] [address] MICRO OTHER TESTSOrdered By: Lulu Willis on 02-15-2023 Lactoferrin Ql (Stl) Negative 1 (02/15/23 5:19 PM) Normal Negative [facility]ero Comment on above: Interpretive Data: Trent menjivar semi-quantitative detection of elevated levels of fecal lactoferrin is a marker for fecal leukocytes and an indication of intestinal inflammation. Magnesiumon 02-15-2023 Magnesium [Mass/Vol] 1.8 mg/dL Normal 1.3-2.4 [facility] Comment on above: Performed By: #### 2 808046, 1498663, 0718858, 23309901, 2606636, 8769339 ####[facility] [address] [place] [address] SEROLOGYOrdered By: Jordy Leiva on 02-15-2023 HCG.beta subunit (U) [Moles/Vol] Negative Normal [facility] Sero U BetaHcg Qualon 02-15-2023 HCG.beta subunit (U) [Moles/Vol] Negative Normal [facility] Comment on above: Performed By: #### 2 3059818, 62629021 ####[facility] [address] [place] [address] UA With Cult Reflexon 2022 Bilirubin Ql (U) Negative Normal Negative [facility] Comment on above: Performed By: #### 2 7892638, 83337946 ####[facility] [address] [place] [address] Calcium oxalate crystals LM Ql (Urine sed) Present Normal [facility] Comment on above: Performed By: #### 2 0889375, 24540514 ####[facility] [address] [place] [address] Clarity (U) SL CLOUDY Abnormal Clear [facility] Comment on above: Performed By: #### 2 8369000, 49957070 ####[facility] [address] [place] [address] Color (U) YELLOW Normal Yellow [facility] Comment on above: Performed By: #### 2 2730306, 93395648 ####[facility] [address] [place] [address] Epithelial cells.squamous LM.HPF (Urine sed) [#/Area] 0-2 Normal 0-2 [facility] Comment on above: Performed By: #### 2 3445477, 35795387 ####[facility] [address] [place] [address] Glucose Test strip (U) [Mass/Vol] Negative Normal Negative [facility] Comment on above: Performed By: #### 2 3252509, 69029141 ####[facility] [address] [place] [address] Hemoglobin Ql (U) Negative Normal Negative [facility] Comment on above: Performed By: #### 2 0993681, 18463024 ####[address] [address] Ketones (U) [Mass/Vol] TRACE Abnormal Negative [facility] Comment on above: Performed By: #### 2 4085503, 28488962 ####[address] [address] [place].plasma/Lithiu m.RBC (Bld) [Mass ratio] 0-3 Normal 0-3 [facility] Comment on above: Performed By: #### 2 0775481, 06235086 ####[address] [address] Mucus Ql (Urine sed) 2+ Normal Fish [facility] Comment on above: Performed By: #### 2 0516446, 95262739 ####[address] [address] Nitrite Ql (U) Negative Normal Negative [facility] Comment on above: Performed By: #### 2 3060663, 84365603 ####[address] [address] pH (U) 6.0 [pH] Invalid Interpretation Code 5.0-9.0 [facility] Comment on above: Performed By: #### 2 5398519, 19853535 ####[address] [address] Protein (U) [Mass/Vol] Negative Normal Negative [facility] Comment on above: Performed By: #### 2 2808429, 65576009 ####[address] [address] Specific gravity (U) [Rel density] 1.025 Invalid Interpretation Code 1.005-1.030 [facility] Comment on above: Performed By: #### 2 1379060, 89338691 ####[address] [place] [address] Type of Urine collection method Clean Catch Normal [facility] Comment on above: Performed By: #### 2 7075018, 59080975 ####[facility] [address] [place] [address] Urobilinogen Qn (U) 1.0 {Ladonna'U}/dL Normal 0.0-1.0 [facility] Comment on above: Performed By: #### 2 2942986, 34216747 ####[facility] [address] [place] [address] WBC Auto Ql (U) Negative Normal Negative [facility] Comment on above: Performed By: #### 2 0067611, 07786833 ####[address] [address] WBC LM.HPF (Urine sed) [#/Area] 0-5 Normal 0-5 [facility] Comment on above: Performed By: #### 2 4213112, 39673548 ####[facility] [address] [place], [place] [address] URINALYSISOrdered By: Isa Leiva on 02-15-2023 Bilirubin Ql (U) Negative (02/15/23 4:13 PM) Normal Negative [facility]A Auto SS Calcium oxalate crystals LM Ql (Urine sed) Present (02/15/23 4:13 PM) Normal FT UA Auto SS Clarity (U) Slightly Cloudy *ABN* (02/15/23 4:13 PM) Invalid Interpretation Code Clear [facility] UA Auto SS Color (U) Yellow (02/15/23 4:13 PM) Normal Yellow [facility] UA Auto SS Epithelial cells.squamous LM.HPF (Urine sed) [#/Area] 0-2 /HPF Normal 0-2/HPF [facility] UA Aut o SS Glucose Test strip (U) [Mass/Vol] Negative (02/15/23 4:13 PM) Normal Negative [facility] UA Auto SS Hemoglobin Ql (U) Negative (02/15/23 4:13 PM) Normal Negative [facility] UA Auto SS Ketones (U) [Mass/Vol] Trace *ABN* (02/15/23 4:13 PM) Invalid Interpretation Code Negative [facility] UA Auto SS [place].plasma/Lithiu m.RBC (Bld) [Mass ratio] 0-3 /HPF Normal 0-3/HPF [facility] UA Auto SS Mucus Ql (Urine sed) 2+ (02/15/23 4:13 PM) Normal [facility] UA Auto SS Nitrite Ql (U) Negative (02/15/23 4:13 PM) Normal Negative [facility] UA Auto SS pH (U) 6.0 *NA* (02/15/23 4:13 PM) Invalid Interpretation Code 5.0 - 9.0 [facility] UA Auto SS Protein (U) [Mass/Vol] Negative (02/15/23 4:13 PM) Normal Negative [facility] UA Auto SS Specific gravity (U) [Rel density] 1.025 *NA* (02/15/23 4:13 PM) Invalid Interpretation Code 1.005 - 1.030 [facility] UA Auto SS UA Spec Desc Clean Catch (02/15/23 4:13 PM) Normal [facility] UA Auto SS Urobilinogen Qn (U) 1.4386041 {Ladonna'U}/dL Normal 0.0 - 1.0 EU/dL [facility] UA Auto SS WBC Auto Ql (U) Negative (02/15/23 4:13 PM) Normal Negative [facility] UA Auto SS WBC LM.HPF (Urine sed) [#/Area] 0-5 /HPF Normal 0-5/HPF [facility] UA Auto SS eGFRon 02-15-2023 GFR/1.73 sq M.predicted among non-blacks MDRD (S/P/Bld) [Vol rate/Area] mL/min/{1.73_m2} Normal >=59 [facility] Comment on above: Order Comment: Order added by Discern Expert. Performed By: #### 2 086690, 6425637, 9960883, 02473458, 2332812, 8404807 ####[facility] [address] [place] [address] Consent for Treatmenton 02-04 Consent for Treatment [id number] [id number]#1.0 0TIFF Normal [facility] Heart and Vascular Office/Cl inic Noteon 02-14-2023 Heart and Vascular Office/Clinic Note Normal [facility] Comment on above: Result Comment: Elec tronically Signed By: MARK GAMBLE, Huang Tejada.br\Date and Time Signed: 02/14/23 12:01 EST Physician Orderon 02-14-2023 Physician Order [id number]#1.0 0TIFF Normal [facility] Auto Diffon 02-10-2023 Basophils/100 WBC (Bld) 0.4 % Normal 0.0-2.0 [facility] Comment on above: Order Comment: Order Added by Discern Expert. Performed By: #### 2 763355, 14109871, 5395537, 1134939, 9267274, 9551293, 09473368 ####[address] [address] Basophils/Leukocytes Auto (Bld) [Pure # fraction] 0.1 E9/L Normal 0.0-0.2 [facility] Comment on above: Order Comment: Order Added by Discern Expert. Performed By: #### 2 068650, 90084343, 0270975, 2826843, 8431034, 5878196, 39619890 ####[facility] [address] [place] [address] Eosinophils/100 WBC (Bld) 0.7 % Normal 0.0-8.0 [facility] Comment on above: Order Comment: Order Added by Discern Expert. Performed By: #### 2 899490, 16808869, 5024320, 2949132, 7951114, 3182735, 24030490 ####[facility] [address] [place] [address] Eosinophils/Leukocyte s Auto (Bld) [Pure # fraction] 0.1 E9/L Normal 0.0-0.5 [facility] Comment on above: Order Comment: Order Added by Discern Expert. Performed By: #### 2 589482, 22811639, 4744566, 8156211, 6076850, 0958566, 71125462 ####Rodriguez [address] [address] Lymphocytes/100 WBC (Bld) 7.9 % Low 14.0-50.0 [facility] Comment on above: Order Comment: Order Added by Discern Expert. Performed By: #### 2 686748, 53866610, 8688133, 6925647, 7831243, 2819066, 59465332 ####[address] [address] Lymphocytes/Leukocyte s Auto (Bld) [Pure # fraction] 1.1 E9/L Normal 1.0-4.0 [facility] Comment on above: Order Comment: Order Added by Discern Expert. Performed By: #### 2 703023, 88549140, 8196904, 1621596, 8829729, 9496426, 37768295 ####[address] [address] Monocytes/100 WBC (Bld) 7.1 % Normal 4.0-14.0 [facility] Comment on above: Order Comment: Order Added by Discern Expert. Performed By: #### 2 879201, 35981061, 0790682, 9026719, 6503180, 5177579, 49012188 ####[address] [address] Monocytes/Leukocytes Auto (Bld) [Pure # fraction] 1.0 E9/L Normal 0.2-1.0 [facility] Comment on above: Order Comment: Order Added by Discern Expert. Performed By: #### 2 458239, 22651750, 8656308, 3544441, 4728312, 8928253, 78193878 ####[address] [address] Neutrophils/100 WBC (Bld) 83.9 % High 36.0-75.0 [facility] Comment on above: Order Comment: Order Added by Raúl Expert. Performed By: #### 2 037581, 34612496, 6085517, 1268598, 1928807, 6958056, 05858348 ####[address] [place] [address] Neutrophils/Leukocyte s Auto (Bld) [Pure # fraction] 11.4 E9/L High 2.0-7.5 [facility] Comment on above: Order Comment: Order Added by Discern Expert. Performed By: #### 2 599315, 10227984, 4385159, 7590081, 5928873, 6992114, 28363040 ####[facility] [address] [place] [address] B hCG Qualon 02-10-2023 Beta HCG ( test) Ql Negative Normal [facility] Comment on above: Performed By: #### 2 912988, 63737840, 3760764, 5128641, 5788986, 9711164, 14031513 ####[facility] [address] [place] [address] BMPon 02-10-2023 Creatinine [Mass/Vol] 0.8 mg/dL Normal 0.5-1.3 [facility] Comment on above: Performed By: #### 2 687027, 11913248, 9421952, 2442976, 9276986, 2682755, 95623962 ####[facility] [address] [place] [address] Urea nitrogen [Mass/Vol] 17 mg/dL Normal 5-21 [facility] Comment on above: Performed By: #### 2 936033, 39239163, 7777686, 7688907, 8384378, 3652151, 64425472 ####[facility] [address] [place] [address] Urea nitrogen/Creatinine [Mass ratio] 21 No Units High 10-20 [facility] Comment on above: Performed By: #### 2 331128, 62197088, 8829340, 0279323, 4737792, 6209942, 77140641 ####[facility] [address] [place] [address] Anion gap [Moles/Vol] 13 mmol/L Normal 6-16 [facility] Comment on above: Performed By: #### 2 705814, 07549009, 1697504, 4619239, 7652847, 1546125, 90926931 ####[facility] [facility] [address] [place] [address] Calcium [Mass/Vol] 9.5 mg/dL Normal 8.9-11.1 [facility] Comment on above: Performed By: #### 2 618771, 78394622, 1638361, 5891181, 2141254, 0178402, 48860012 ####[facility] [address] [place] [address] Chloride [Moles/Vol] 111 mmol/L Normal 101-111 [facility] Comment on above: Performed By: #### 2 865724, 88707774, 9813452, 6610524, 2733096, 9141710, 82944939 ####[facility] [address] [place] [address] CO2 [Moles/Vol] 20 mmol/L Low 21-31 [facility] Comment on above: Performed By: #### 2 519257, 19180379, 2929922, 9428038, 3791652, 4735852, 90351240 ####[facility] [address] [place] [address] Glucose [Mass/Vol] 103 mg/dL Normal 55-199 [facility] Comment on above: Result Comment: If t his glucose result represents a fasting glucose, interpretation should refer to the following reference range: 55-99 mg/dL Performed By: #### 2 272599, 00386295, 5568757, 6003614, 1124224, 9979382, 44835129 ####[facility] [address] [place] [address] Potassium [Moles/Vol] 3.9 mmol/L Normal 3.5-5.3 [facility] Comment on above: Performed By: #### 2 763903, 94651236, 2360694, 3041450, 6262010, 1354891, 59969898 ####[facility] [address] [place] [address] Sodium [Moles/Vol] 140 mmol/L Normal 135-145 [facility] Comment on above: Performed By: #### 2 904208, 10106079, 8602040, 5025811, 4248711, 3469013, 59088554 ####[facility] [address] [place] [address] CBC w/ Auto Diffon 3 Erythrocyte distribution width (RBC) [Ratio] 12.8 % Normal 10.9-14.2 [facility] Comment on above: Performed By: #### 2 167031, 20797821, 4848497, 2376988, 5089147, 0469502, 58778520 ####[address] [address] Hematocrit (Bld) [Volume fraction] 43.4 % Normal 34.0-46.0 [facility] Comment on above: Performed By: #### 2 675468, 05482846, 8007020, 4392066, 3926374, 4365883, 82318897 ####[facility] [address] [place] [address] Hemoglobin (Bld) [Mass/Vol] 14.3 g/dL Normal 12.0-16.0 [facility] Comment on above: Performed By: #### 2 556225, 75527003, 8479393, 7378982, 1371294, 4809262, 50481691 ####[facility] [address] [place] [address] MCH (RBC) [Entitic mass] 28.8 pg Normal 27.0-34.0 [facility] Comment on above: Performed By: #### 2 122729, 12658453, 7455533, 9066776, 0478611, 4498031, 90479755 ####[facility] [address] [place] [address] MCHC (RBC) [Mass/Vol] 32.9 g/dL Normal 31.4-36.0 [facility] Comment on above: Performed By: #### 2 658772, 63368485, 0561878, 2014251, 0223967, 3182077, 95563710 ####[address] [address] MCV (RBC) [Entitic vol] 87.5 fL Normal 80.0-100.0 [facility] Comment on above: Performed By: #### 2 824569, 96755444, 9813631, 5311340, 3601280, 2273495, 40401787 ####[address] [address] Platelet mean volume (Bld) [Entitic vol] 8.9 fL Normal 6.4-10.8 [facility] Comment on above: Performed By: #### 2 199345, 27069611, 8031456, 6559790, 4456360, 7717282, 02769519 ####[address] [address] Platelets (Bld) [#/Vol] 247.0 E9/L Normal 150.0-500.0 [facility] Comment on above: Performed By: #### 2 969573, 50755522, 5533507, 0940002, 8736628, 9872336, 82599634 ####[address] [address] RBC (Bld) [#/Vol] 5.0 E12/L Normal 4.3-5.9 [facility] Comment on above: Performed By: #### 2 491511, 35948857, 1074416, 6179241, 8951599, 4320279, 55168071 ####[address] [address] WBC corrected for nucl RBC Auto (Bld) [#/Vol] 13.7 E9/L High 4.0-11.0 [facility] Comment on above: Performed By: #### 2 066016, 41961057, 6727657, 7576242, 6046342, 4457970, 22897814 ####[facility] [address] [place] [address] CHEMISTRYOrdered By: SYSTEM SYSTEM on 02-10-2023 Albumin [Mass/Vol] 4.4 g/dL Normal 3.3 - 5.0 gm/dL [facility] Albumin/Globulin [Mass ratio] 1.5 {ratio} Normal 1.1 - 2.2 [facility] ALP [Catalytic activity/Vol] 76 [iU]/d Normal 21 - 98 Int._Unit/L [facility] ALT No additional P-5'-P [Catalytic activity/Vol] 15 [iU]/d Normal 6 - 46 Int._Unit/L [facility] Anion gap [Moles/Vol] 13 mmol/L Normal 6 - 16 mEq/L [facility] AST [Catalytic activity/Vol] 15 [iU]/d Normal 5 - 43 Int._Unit/L [facility] Bilirubin [Mass/Vol] 0.5 mg/dL Normal 0.0 - 1 .1 mg/dL [facility] Bilirubin.direct [Mass/Vol] mg/dL Normal 0.1 - 0.4 mg/dL [facility] Bilirubin.indirect [Mass or moles/Vol] Unable to Calculate mg/dL Invalid Interpretation Code 0.1 - 0.9 mg/dL [facility] Calcium [Mass/Vol] 9.5 mg/dL Normal 8.9 - 11. 1 mg/dL [facility] Chloride [Moles/Vol] 111 mmol/L Normal 101 - 1 11 mmol/L [facility] CO2 [Moles/Vol] 20 mmol/L Low 21 - 31 mmol/L [facility] Creatinine [Mass/Vol] 0.8 mg/dL Normal 0.5 - 1.3 mg/dL [facility] GFR/1.73 sq M.predicted among non-blacks MDRD (S/P/Bld) [Vol rate/Area] 103 mL/min/1.73 m2 Normal >=59mL/min/1 .73 m2 [facility] Comment on above: Interpretive Data: C hronic kidney disease could be indicated at eGFR's of less than 60 mL/min/1.73m2. Kidney failure is indicated at less than 15 mL/min/1.73m2. Globulin (S) [Mass/Vol] 3.0 g/dL Normal 1.4 - 4.0 gm/dL [facility] Glucose [Mass/Vol] 103 mg/dL Normal 55 - 199 mg/dL [facility] Comment on above: Interpretive Data: I f this glucose result represents a fasting glucose, interpretation should refer to the following reference range: 55-99 mg/dL Lipase [Catalytic activity/Vol] 36 U/L Normal 13 - 58 unit/L [facility] Potassium [Moles/Vol] 3.9 mmol/L Normal 3.5 - 5.3 mmol/L [facility] Protein [Mass/Vol] 7.4 g/dL Normal 6.0 - 7.8 gm/dL [facility] Sodium [Moles/Vol] 140 mmol/L Normal 135 - 145 mmol/L [facility] Urea nitrogen [Mass/Vol] 17 mg/dL Normal 5 - 21 mg/dL [facility] Urea nitrogen/Creatinine [Mass ratio] 21 mg/mg High 10 - 20 [facility] Consent for Treatmenton Consent for Treatment [id number] [id number]#1. 00TIFF Normal [facility] Discharge Instructionson Discharge Instructions [id number]#1. 00TIFF Normal [facility] ED Clinical Summaryon 2022 ED Clinical Summary Normal [facility] ED Note-Physicianon 02-11-20 ED Note-Physician Normal [facility] Comment on above: Result Comment: Elec tronically Signed By: Rober Solorzano PA-C\.br\Date and Time Signed: 02/10/23 13:22 EST\.br\Electronically Co-Signed By: Quintin Murcia DO\.br\Date and Time Co-Signed: 02/10/23 17:28 EST ED Patient Education Noteon 02-10-2023 ED Patient Education Note Normal [facility] ED Patient Summaryon 023 ED Patient Summary Normal [facility] HEMATOLOGYOrdered By: SYSTEM SYSTEM on 02-10-2023 Basophils/100 WBC (Bld) 0.4 % Normal 0.0 - 2.0 % [facility]eAutoSS Basophils/Leukocytes Auto (Bld) [Pure # fraction] 0.1 E9/L Normal 0.0 - 0.2 E9/L [facility]eAutoSS Eosinophils/100 WBC (Bld) 0.7 % Normal 0.0 - 8.0 % [facility]eAuto[facility] Eosinophils/Leukocyte s Auto (Bld) [Pure # fraction] 0.1 E9/L Normal 0.0 - 0.5 E9/L [facility]eAutoSS Lymphocytes/100 WBC (Bld) 7.9 % Low 14.0 - 50.0 % [facility]eAuto[facility] Lymphocytes/Leukocyte s Auto (Bld) [Pure # fraction] 1.1 E9/L Normal 1.0 - 4.0 E9/L [facility]eAutoSS Monocytes/100 WBC (Bld) 7.1 % Normal 4.0 - 14.0 % [facility]eAutoSS Monocytes/Leukocytes Auto (Bld) [Pure # fraction] 1.0 E9/L Normal 0.2 - 1.0 E9/L [facility] Neutrophils/100 WBC (Bld) 83.9 % High 36.0 - 75.0 % [facility]eAuto[facility] Neutrophils/Leukocyte s Auto (Bld) [Pure # fraction] 11.4 E9/L High 2.0 - 7.5 E9/L [facility]eAuto[facility] HEMATOLOGYOrdered By: Cece Telles on 02-10-2023 Erythrocyte distribution width (RBC) [Ratio] 12.8 % Normal 10.9 - 14.2 % [facility] Hematocrit (Bld) [Volume fraction] 43.4 % Normal 34.0 - 46.0 % [facility]eAutoSS Hemoglobin (Bld) [Mass/Vol] 14.3 g/dL Normal 12.0 - 16.0 gm/dL [facility]eAuto[facility] MCH (RBC) [Entitic mass] 28.8 pg Normal 27.0 - 34.0 pg [facility]eAuto[facility] MCHC (RBC) [Mass/Vol] 32.9 g/dL Normal 31.4 - 36.0 gm/dL [facility]eAuto[facility] MCV (RBC) [Entitic vol] 87.5 fL Normal 80.0 - 100.0 fL [facility]eAuto[facility] Platelet mean volume (Bld) [Entitic vol] 8.9 fL Normal 6.4 - 10.8 fL [facility] Platelets (Bld) [#/Vol] 247.0 E9/L Normal 150.0 - 500.0 E9/L [facility] RBC (Bld) [#/Vol] 5.0 E12/L Normal 4.3 - 5.9 E12/L [facility] WBC corrected for nucl RBC Auto (Bld) [#/Vol] 13.7 E9/L High 4.0 - 11.0 E9/L [facility] Hep Func Panelon 02-10-2023 Bilirubin.indirect [Mass or moles/Vol] UTC Abnormal 0.1-0.9 [facility] Comment on above: Result Comment: Resu lt verified by Discern Rule. Performed result UT (Unable to Calculate) was sent as an Alpha code due the inability to calculate a valid numeric value. Performed By: #### 2 137830, 07252382, 3357616, 7411304, 3294460, 1369371, 47811781 ####[facility] [address] [place] [address] Albumin [Mass/Vol] 4.4 g/dL Normal 3.3-5.0 [facility] Comment on above: Performed By: #### 2 774622, 52703420, 0109051, 7640106, 1172398, 4576141, 63019277 ####[facility] [address] [place] [address] Albumin/Globulin (S) [Mass conc ratio] 1.5 Normal 1.1-2.2 [facility] Comment on above: Performed By: #### 2 992803, 18660848, 4726139, 4094137, 3099007, 2369714, 34940841 ####[facility] [address] [place] [address] ALP [Catalytic activity/Vol] 76 Int._Unit/L Normal 21-98 [facility] Comment on above: Performed By: #### 2 746052, 68987492, 7112006, 4070398, 0234077, 3709843, 40740223 ####[facility] [address] [place] [address] ALT No additional P-5'-P [Catalytic activity/Vol] 15 Int._Unit/L Normal 6-46 [facility] Comment on above: Performed By: #### 2 649772, 77427807, 9534816, 9043527, 1490959, 3011441, 92259852 ####[facility] [address] [place] [address] AST [Catalytic activity/Vol] 15 Int._Unit/L Normal 5-43 [facility] Comment on above: Performed By: #### 2 228629, 28527011, 0267108, 5866466, 0488786, 0640280, 42487131 ####[facility] [address] [place] [address] Bilirubin [Mass/Vol] 0.5 mg/dL Normal 0.0-1.1 [facility] Comment on above: Performed By: #### 2 326330, 60278805, 2179858, 6538781, 3207821, 5055191, 01183208 ####[facility] [address] [place] [address] Globulin (S) [Mass/Vol] 3.0 g/dL Normal 1.4-4.0 [facility] Comment on above: Performed By: #### 2 824885, 00020446, 4067315, 0497790, 4251958, 6860532, 97891022 ####[facility] [address] [place] [address] Protein [Mass/Vol] 7.4 g/dL Normal 6.0-7.8 [facility] Comment on above: Performed By: #### 2 763380, 30214863, 6191351, 9692678, 7409794, 2762403, 19832425 ####[facility] [address] [place] [address] Bilirubin.direct [Mass/Vol] mg/dL Normal 0.1-0.4 [facility] Comment on above: Performed By: #### 2 130826, 48773704, 9342629, 0958884, 3092595, 0151582, 91605006 ####[facility] [address] [place] [address] Lipase Levelon 02-10-2023 Lipase [Catalytic activity/Vol] 36 U/L Normal 13-58 [facility] Comment on above: Performed By: #### 2 084392, 24160972, 3716139, 6278947, 6101033, 3260539, 99655170 ####[facility] [address] [place] [address] Pre-Arrival Noteon 3 Pre-Arrival Note Normal [facility] SEROLOGYOrdered By: Jordy Leiva on 02-10-2023 Beta HCG ( test) Ql Negative (02/10/23 11:58 AM) Normal [facility] Man Sero eGFRon 02-10-2023 GFR/1.73 sq M.predicted among non-blacks MDRD (S/P/Bld) [Vol rate/Area] 103 mL/min/1.73 m2 Normal >=59 [facility] Comment on above: Order Comment: Order added by Discern Expert. Result Comment: J2Ee Android Developer lina kidney disease could be indicated at eGFR's of less than 60 mL/min/1.73m2. Kidney failure is indicated at less than 15 mL/min/1.73m2. Performed By: #### 2 110483, 99379416, 2157758, 2829583, 3616430, 8091706, 86483371 ####[facility] [address] [place] [address] Consultation Noteon 02-10-20 Consultation Note [id number]#1.0 0TIFF Normal [facility] PT - Progress Noteson 2022 PT - Progress Notes [id number]#1.0 0TIFF Normal [facility] Consent for Treatmenton Consent for Treatment [id number] [id number]#1.0 0TIFF [facility] Family Medicine Office/Clini c Noteon 01-26-2023 Family Medicine Office/Clinic Note Normal [facility] Comment on above: Result Comment: Elec tronically Signed By: Katelyn Mora.br\Date and Time Signed: 01/26/23 13:29 EST Insurance Correspondenceon 03-28-2022 Insurance Correspondence [id number]#1. 00TIFF [facility] Formson 01-24-2023 Forms [facility] NM Hepatobiliary Duct System Imaging w/EFon 01-17-2023 NM Hepatobiliary Duct System Imaging w/EF [facility] Consent for Treatmenton 01-05 Consent for Treatment [id number] [id number]#1.0 0TIFF [facility] Insurance Correspondenceon 03-13-2022 Insurance Correspondence [id number]#1.0 0TIFF [facility] Formson 01-05-2023 Forms [id number]#1.0 0TIFF [facility] Patient Letter [facility] Letter [facility] Stress EKG Tracingson 2022 Stress EKG Tracings [id number]#1. 00TIFF [facility] Consent for Treatmenton 12-07 Consent for Treatment [id number] [id number]#1.0 0TIFF [facility] ECG Stress Exerciseon 2022 ECG Stress Exercise Normal [facility] Insurance Correspondenceon Insurance Correspondence [id number]#1. 00TIFF [facility] Ambulatory Visit Summaryon Ambulatory Visit Summary Normal [facility] Family Medicine Office/Clini c Noteon 12-29-2022 Family Medicine Office/Clinic Note Normal [facility] Comment on above: Result Comment: Elec tronically Signed By: Katelyn Mora\.br\Date and Time Signed: 12/29/22 14:42 EDT Consent for Treatmenton 12-05 Consent for Treatment [id number] [id number]#1.0 0TIFF Normal [facility] Consent for Treatment [id number] [id number]#1.0 0TIFF Normal [facility] Heart and Vascular Office/Cl inic Noteon 12-16-2022 Heart and Vascular Office/Clinic Note Normal [facility] Comment on above: Result Comment: Elec tronically Signed By: Huang FLORES MD\.br\Date and Time Signed: 12/16/22 14:32 EDT Physician Orderon 12-16-2022 Physician Order [id number]#1.0 0TIFF Normal [facility] US Gallbladderon 12-16-2022 US Gallbladder Normal [facility] Holter Monitoron 12-06-2022 Holter Monitor [id number] 10 [id number]#1.0 0CD:127 Normal [facility] Holter Monitoron 12-04-2022 Holter Monitor Normal [facility] Comment on above: Result Comment: Elec tronically Signed By: Huang FLORES MD\.br\Date and Time Signed: 12/04/22 08:27 EDT Consultation Noteon 12-03-19 Consultation Note [id number]#1.0 0CD:127 Normal [facility] Consent for Treatmenton 11-06 Consent for Treatment [id number] [id number]#1.0 0CD:127 [facility] Discharge Instructionson Discharge Instructions [id number]#1. 00CD:127 Normal [facility] ED Clinical Summaryon 2022 ED Clinical Summary Normal [facility] ED Note-Physicianon 12-02-19 ED Note-Physician [facility] Comment on above: Result Comment: Elec tronically Signed By: Winnie Paula DO\.br\Date and Time Signed: 12/01/22 00:09 EDT ED Patient Education Noteon 12-01-2022 ED Patient Education Note Normal [facility] ED Patient Summaryon ED Patient Summary Normal [facility] Consent for Treatmenton 11-06 Consent for Treatment [id number] [id number]#1.0 0CD:127 Normal [facility] Healthon 11-24-19 [facility] Physician Referralon 023 Physician Referral [id number]#1.0 0CD:127 Normal [facility] Population Healthon 11-23-19 [facility] Family Medicine Office/Clini c Noteon 11-19-2022 Family Medicine Office/Clinic Note Normal [facility] Comment on above: Result Comment: Elec tronically Signed By: Katelyn Mora\.br\Date and Time Signed: 11/19/22 09:34 EDT Insurance Correspondenceon 0 11-18-2022 Insurance Correspondence [id number]#1. 00CD:127 [facility] Consent for Treatmenton 11-05 Consent for Treatment [id number] [id number]#1.0 0CD:127 Normal [facility] Auto Diffon 11-15-2022 Basophils/100 WBC (Bld) 0.7 % Normal 0.0-2.0 [facility] Comment on above: Order Comment: Order Added by Discern Expert. Performed By: #### 2 773455, 7406261, 6426111, 7677214, 4765174, 5607099, 27166018, 51456935 ####[address] [place] [address] Basophils/Leukocytes Auto (Bld) [Pure # fraction] 0.1 E9/L Normal 0.0-0.2 [facility] Comment on above: Order Comment: Order Added by Discern Expert. Performed By: #### 2 104185, 5783032, 7211186, 6969995, 6409879, 4061491, 67897530, 15860608 ####[address] [address] Eosinophils/100 WBC (Bld) 2.3 % Normal 0.0-8.0 [facility] Comment on above: Order Comment: Order Added by Discern Expert. Performed By: #### 2 155968, 6105600, 8910476, 5458991, 4804553, 8475436, 94413464, 10172773 ####[address] [address] Eosinophils/Leukocyte s Auto (Bld) [Pure # fraction] 0.2 E9/L Normal 0.0-0.5 [facility] Comment on above: Order Comment: Order Added by Discern Expert. Performed By: #### 2 009461, 1441101, 6144614, 3330645, 9537421, 5806575, 69995323, 88411344 ####[address] [address] Lymphocytes/100 WBC (Bld) 31.3 % Normal 14.0-50.0 [facility] Comment on above: Order Comment: Order Added by Discern Expert. Performed By: #### 2 502646, 9943373, 9564720, 3894714, 8721831, 0133568, 12311309, 65006142 ####[address] [address] Lymphocytes/Leukocyte s Auto (Bld) [Pure # fraction] 2.2 E9/L Normal 1.0-4.0 [facility] Comment on above: Order Comment: Order Added by Raúl Expert. Performed By: #### 2 100637, 5757304, 4359501, 8866077, 2625822, 9162836, 33496908, 55349304 ####[facility] [address] [place] [address] Monocytes/100 WBC (Bld) 7.5 % Normal 4.0-14.0 [facility] Comment on above: Order Comment: Order Added by Discern Expert. Performed By: #### 2 008032, 5986314, 9225335, 7240887, 3668929, 8080236, 63559302, 83177925 ####[address] [place] [address] Monocytes/Leukocytes Auto (Bld) [Pure # fraction] 0.5 E9/L Normal 0.2-1.0 [facility] Comment on above: Order Comment: Order Added by Raúl Expert. Performed By: #### 2 688137, 4292417, 0007271, 6842188, 8230475, 2431494, 94965191, 89093016 ####[address] [place] [address] Neutrophils/100 WBC (Bld) 58.2 % Normal 36.0-75.0 [facility] Comment on above: Order Comment: Order Added by Raúl Expert. Performed By: #### 2 282253, 6620351, 5994906, 8923286, 9377887, 7112033, 95138957, 22357884 ####[facility] [address] [place] [address] Neutrophils/Leukocyte s Auto (Bld) [Pure # fraction] 4.1 E9/L Normal 2.0-7.5 [facility] Comment on above: Order Comment: Order Added by Raúl Expert. Performed By: #### 2 696892, 8809392, 7555409, 7240718, 3574044, 6255497, 35633937, 15670808 ####[facility] [address] [place] [address] BNPon 11-15-2022 Int Ctr BNP Pass Normal [facility] Comment on above: Performed By: #### 2 147557, 9883256, 8186764, 8268901, 8637038, 9273141, 00160398, 83095385 ####[facility] [address] [place] [address] Natriuretic peptide B (Bld) [Mass/Vol] 12 pg/mL Normal 5-80 [facility] Comment on above: Performed By: #### 2 359368, 2679781, 4449434, 6207216, 0351767, 9971681, 11441731, 05588795 ####[facility] [address] [place] [address] CBC w/ Auto Diffon 3 Erythrocyte distribution width (RBC) [Ratio] 13.1 % Normal 10.9-14.2 [facility] Comment on above: Performed By: #### 2 006182, 5646645, 5231402, 4219362, 6934358, 3601602, 99399869, 22798432 ####[facility] [address] [place] [address] Hematocrit (Bld) [Volume fraction] 40.8 % Normal 34.0-46.0 [facility] Comment on above: Performed By: #### 2 931322, 2719088, 2141154, 7968726, 6167025, 0700608, 39933031, 14429700 ####[facility] [address] [place] [address] Hemoglobin (Bld) [Mass/Vol] 13.8 g/dL Normal 12.0-16.0 [facility] Comment on above: Performed By: #### 2 601198, 9794199, 7533702, 1878784, 9381736, 2417439, 61440984, 28582534 ####[facility] [address] [place] [address] MCH (RBC) [Entitic mass] 29.4 pg Normal 27.0-34.0 [facility] Comment on above: Performed By: #### 2 414660, 4091313, 2650497, 2183174, 4601656, 1055888, 59766373, 53348002 ####[address] [address] MCHC (RBC) [Mass/Vol] 33.8 g/dL Normal 31.4-36.0 [facility] Comment on above: Performed By: #### 2 788190, 0958256, 7866311, 8082450, 4354314, 7674798, 17449271, 92646876 ####[address] [address] MCV (RBC) [Entitic vol] 87.0 fL Normal 80.0-100.0 [facility] Comment on above: Performed By: #### 2 203981, 1040953, 2986961, 6400050, 3922596, 1131308, 18486563, 07129968 ####[address] [address] Platelet mean volume (Bld) [Entitic vol] 10.4 fL Normal 6.4-10.8 [facility] Comment on above: Performed By: #### 2 664760, 5208309, 3198176, 8564061, 6301909, 3164311, 20593421, 35447169 ####[address] [address] Platelets (Bld) [#/Vol] 223.0 E9/L Normal 150.0-500.0 [facility] Comment on above: Performed By: #### 2 168199, 1012373, 2545290, 6118521, 3070880, 6874489, 18439073, 16756405 ####[address] [address] RBC (Bld) [#/Vol] 4.7 E12/L Normal 4.3-5.9 [facility] Comment on above: Performed By: #### 2 533096, 8536643, 6933813, 1905231, 9792563, 7840990, 79516401, 70948841 ####[facility] [address] [place] [address] WBC corrected for nucl RBC Auto (Bld) [#/Vol] 7.1 E9/L Normal 4.0-11.0 [facility] Comment on above: Performed By: #### 2 904881, 8958893, 2594887, 6616997, 3576994, 5691944, 78764223, [id number] ####[facility] [id number] [place] [address] CHEMISTRYOrdered By: SYSTEM SYSTEM on 11-15-2022 Albumin [Mass/Vol] 4.4 g/dL Normal 3.3 - 5.0 gm/dL [facility] Remisol Albumin/Globulin [Mass ratio] 1.5 {ratio} Normal 1.1 - 2.2 [facility] Remisol ALP [Catalytic activity/Vol] 89 [iU]/d Normal 21 - 98 Int._Unit/L [facility] Remisol ALT No additional P-5'-P [Catalytic activity/Vol] 14 [iU]/d Normal 6 - 46 Int._Unit/L [facility] Remisol Anion gap [Moles/Vol] 9 mmol/L Normal 6 - 16 mEq/L [facility] Remisol AST [Catalytic activity/Vol] 14 [iU]/d Normal 5 - 43 Int._Unit/L [facility] Bilirubin [Mass/Vol] 0.4 mg/dL Normal 0.0 - 1 .1 mg/dL [facility] Calcium [Mass/Vol] 9.9 mg/dL Normal 8.9 - 11. 1 mg/dL [facility] Chloride [Moles/Vol] 112 mmol/L High 101 - 1 11 mmol/L [facility] CO2 [Moles/Vol] 23 mmol/L Normal 21 - 31 mmol/L [facility] Creatinine [Mass/Vol] 0.8 mg/dL Normal 0.5 - 1.3 mg/dL [facility] GFR/1.73 sq M.predicted among non-blacks MDRD (S/P/Bld) [Vol rate/Area] 104 mL/min/1.73 m2 Normal >=59mL/min/1 .73 m2 [facility] S Globulin (S) [Mass/Vol] 3.0 g/dL Normal 1.4 - 4.0 gm/dL [facility] Glucose [Mass/Vol] 86 mg/dL Normal 55 - 199 mg/dL [facility] Magnesium [Mass/Vol] 2.2 mg/dL Normal 1.3 - 2 .4 mg/dL [facility] Potassium [Moles/Vol] 4.4 mmol/L Normal 3.5 - 5.3 mmol/L [facility] Protein [Mass/Vol] 7.4 g/dL Normal 6.0 - 7.8 gm/dL [facility] Sodium [Moles/Vol] 140 mmol/L Normal 135 - 145 mmol/L [facility] Troponin I.cardiac [Mass/Vol] pg/mL Low 10.10 - 27.10 pg/mL [facility] TSH Qn 2.24 m[IU]/L Normal 0.34 - 5.60 mcIU/mL [facility] Urea nitrogen [Mass/Vol] 13 mg/dL Normal 5 - 21 mg/dL [facility] Urea nitrogen/Creatinine [Mass ratio] 16 mg/mg Normal 10 - 20 [facility] CHEMISTRYOrdered By: Cece Telles on 11-15-2022 Natriuretic peptide B (Bld) [Mass/Vol] 12 pg/mL Normal 5 - 80 pg/mL [facility] [place]itor VALENTINEon 11-15-2022 Albumin [Mass/Vol] 4.4 g/dL Normal 3.3-5.0 [facility] Comment on above: Performed By: #### 2 859518, 2762175, 8870104, 7687050, 1668362, 2474080, 08074220, 32959850 ####[facility] [address] [place] [address] Albumin/Globulin (S) [Mass conc ratio] 1.5 Normal 1.1-2.2 [facility] Comment on above: Performed By: #### 2 331907, 6811569, 3469923, 6553894, 2274271, 7197495, 72433199, 35268427 ####[facility] [address] [place] [address] ALP [Catalytic activity/Vol] 89 Int._Unit/L Normal 21-98 [facility] Comment on above: Performed By: #### 2 156152, 6445106, 8057730, 7758789, 5648669, 7665609, 05362268, 09971843 ####[facility] [address] [place] [address] ALT No additional P-5'-P [Catalytic activity/Vol] 14 Int._Unit/L Normal 6-46 [facility] Comment on above: Performed By: #### 2 018472, 1342608, 1730483, 1129932, 1742145, 8390374, 92768414, 74567922 ####[facility] [address] [place] [address] Anion gap [Moles/Vol] 9 mmol/L Normal 6-16 [facility] Comment on above: Performed By: #### 2 696493, 7459750, 8482352, 1213106, 6787849, 8810349, 88614690, 71929706 ####[facility] [address] [place] [address] AST [Catalytic activity/Vol] 14 Int._Unit/L Normal 5-43 [facility] Comment on above: Performed By: #### 2 927746, 1983809, 7666354, 5172651, 0510719, 3686449, 60107338, 42870999 ####[facility] [address] [place] [address] Bilirubin [Mass/Vol] 0.4 mg/dL Normal 0.0-1.1 [facility] Comment on above: Performed By: #### 2 870560, 1797267, 2102698, 0973437, 5252013, 7577371, 11837571, 29317787 ####[facility] [address] [place] [address] Calcium [Mass/Vol] 9.9 mg/dL Normal 8.9-11.1 [facility] Comment on above: Performed By: #### 2 768685, 8097874, 9736877, 9105110, 7117124, 8920872, 01465483, 16276455 ####[facility] [address] [place] [address] Chloride [Moles/Vol] 112 mmol/L High 101-111 [facility] Comment on above: Performed By: #### 2 604409, 4239738, 7001036, 9184144, 0740959, 2705319, 54417794, 39464448 ####[facility] [address] [place] [address] CO2 [Moles/Vol] 23 mmol/L Normal 21-31 [facility] Comment on above: Performed By: #### 2 927175, 9423655, 4980237, 5965005, 9981745, 3205691, 75843844, 06029396 ####[facility] [address] [place] [address] Creatinine [Mass/Vol] 0.8 mg/dL Normal 0.5-1.3 [facility] Comment on above: Performed By: #### 2 664922, 9357198, 8614770, 6616938, 2763018, 3772207, 97082707, 14795511 ####[facility] [address] [place] [address] Globulin (S) [Mass/Vol] 3.0 g/dL Normal 1.4-4.0 [facility] Comment on above: Performed By: #### 2 892293, 0849221, 8980876, 5285376, 2372413, 9110302, 00144726, 77998058 ####[facility] [address] [place] [address] Glucose [Mass/Vol] 86 mg/dL Normal 55-199 [facility] Comment on above: Result Comment: If t his glucose result represents a fasting glucose, interpretation should refer to the following reference range: 55-99 mg/dL Performed By: #### 2 677691, 5570470, 6672601, 9337423, 9716903, 5025060, 82639191, 91906405 ####[facility] [address] [place] [address] Potassium [Moles/Vol] 4.4 mmol/L Normal 3.5-5.3 [facility] Comment on above: Performed By: #### 2 807068, 7951156, 4150645, 8620396, 6517206, 6825146, 52890362, 37615445 ####[facility] [address] [place] [address] Protein [Mass/Vol] 7.4 g/dL Normal 6.0-7.8 [facility] Comment on above: Performed By: #### 2 884276, 8657292, 3331142, 6465724, 2230127, 5989126, 21193961, 06711220 ####[facility] [address] [place] [address] Sodium [Moles/Vol] 140 mmol/L Normal 135-145 [facility] Comment on above: Performed By: #### 2 433301, 0178138, 0430387, 3037994, 7397194, 5417384, 60832583, 37223528 ####[facility] [address] [place] [address] Urea nitrogen [Mass/Vol] 13 mg/dL Normal 5-21 [facility] Comment on above: Performed By: #### 2 952050, 4203706, 3481517, 9909559, 2714427, 6751497, 52622556, 28057947 ####[facility] [address] [place] [address] Urea nitrogen/Creatinine [Mass ratio] 16 No Units Normal 10-20 [facility] Comment on above: Performed By: #### 2 217179, 4619632, 5645779, 8284643, 7000765, 1566978, 21626570, 46333262 ####[facility] [address] [place] [address] Family Medicine Office/Clini c Noteon 11-15-2022 Family Medicine Office/Clinic Note Normal [facility] Comment on above: Result Comment: Elec tronically Signed By: Chadwick IVY, Drake Sethi.br\Date and Time Signed: 11/15/22 11:33 EDT HEMATOLOGYOrdered By: SYSTEM SYSTEM on 11-15-2022 Basophils/100 WBC (Bld) 0.7 % Normal 0.0 - 2.0 % [facility] Basophils/Leukocytes Auto (Bld) [Pure # fraction] 0.1 E9/L Normal 0.0 - 0.2 E9/L [facility] Eosinophils/100 WBC (Bld) 2.3 % Normal 0.0 - 8.0 % [facility] Eosinophils/Leukocyte s Auto (Bld) [Pure # fraction] 0.2 E9/L Normal 0.0 - 0.5 E9/L [facility] Lymphocytes/100 WBC (Bld) 31.3 % Normal 14.0 - 50.0 % [facility] Lymphocytes/Leukocyte s Auto (Bld) [Pure # fraction] 2.2 E9/L Normal 1.0 - 4.0 E9/L [facility] Monocytes/100 WBC (Bld) 7.5 % Normal 4.0 - 14.0 % [facility] Monocytes/Leukocytes Auto (Bld) [Pure # fraction] 0.5 E9/L Normal 0.2 - 1.0 E9/L [facility] Neutrophils/100 WBC (Bld) 58.2 % Normal 36.0 - 75.0 % [facility] Neutrophils/Leukocyte s Auto (Bld) [Pure # fraction] 4.1 E9/L Normal 2.0 - 7.5 E9/L [facility] HEMATOLOGYOrdered By: Cece Telles on 11-15-2022 Erythrocyte distribution width (RBC) [Ratio] 13.1 % Normal 10.9 - 14.2 % [facility] Hematocrit (Bld) [Volume fraction] 40.8 % Normal 34.0 - 46.0 % [facility] Hemoglobin (Bld) [Mass/Vol] 13.8 g/dL Normal 12.0 - 16.0 gm/dL [facility] MCH (RBC) [Entitic mass] 29.4 pg Normal 27.0 - 34.0 pg [facility] MCHC (RBC) [Mass/Vol] 33.8 g/dL Normal 31.4 - 36.0 gm/dL [facility] MCV (RBC) [Entitic vol] 87.0 fL Normal 80.0 - 100.0 fL [facility] Platelet mean volume (Bld) [Entitic vol] 10.4 fL Normal 6.4 - 10.8 fL [facility] Platelets (Bld) [#/Vol] 223.0 E9/L Normal 150.0 - 500.0 E9/L [facility] RBC (Bld) [#/Vol] 4.7 E12/L Normal 4.3 - 5.9 E12/L [facility] WBC corrected for nucl RBC Auto (Bld) [#/Vol] 7.1 E9/L Normal 4.0 - 11.0 E9/L [facility] Magnesiumon 11-15-2022 Magnesium [Mass/Vol] 2.2 mg/dL Normal 1.3-2.4 [facility] Comment on above: Performed By: #### 2 037156, 9910401, 6561599, 9338046, 7325837, 2994625, 75703913, 97420881 ####[facility] [address] [place] [address] PT - Progress Noteson 2022 PT - Progress Notes [id number] CD:127 Normal [facility] Patient Educationon 11-16-19 Patient Education Normal [facility] Physician Orderon 11-15-2022 Physician Order [id number] 0CD:127 Normal [facility] TSHon 11-15-2022 TSH Qn 2.24 m[IU]/L Normal 0.34-5.60 [facility] Comment on above: Performed By: #### 2 006815, 5094693, 3961904, 9491367, 3444024, 6466850, 01064423, 05008222 ####[facility] [address] [place] [address] Troponinon 11-15-2022 Troponin I.cardiac [Mass/Vol] ng/mL Low 10.10-27.10 [facility] Comment on above: Result Comment: The 95% CI (Confidence Interval) PPV (Positive Predictive Value) for myocardial infarction in females is 38 pg/mL, in males 51 pg/mL. The results should be used in conjunction with clinical conditions of myocardial infarction.(Access High Sensitivity Troponin I Instructions For Use, [employer], October 2017) Performed By: #### 2 533590, 8835527, 0215399, 9199126, 0379864, 9167664, 70613031, 73560937 ####[facility] [address] [place] [address] eGFRon 11-15-2022 GFR/1.73 sq M.predicted among non-blacks MDRD (S/P/Bld) [Vol rate/Area] 104 mL/min/1.73 m2 Normal >=59 [facility] Comment on above: Order Comment: Order added by Discern Expert. Result Comment: J2E[employer] Android Developer lnia kidney disease could be indicated at eGFR's of less than 60 mL/min/1.73m2. Kidney failure is indicated at less than 15 mL/min/1.73m2. Performed By: #### 2 751623, 3507958, 2269530, 9993883, 2667716, 0267827, 36722669, 68635003 ####[facility] [address] [place] [address] Insurance Correspondenceon 0 11-11-2022 Insurance Correspondence [id number]. 00CD:127 Normal [facility] Ambulatory Visit Summaryon 0 11-09-2022 Ambulatory Visit Summary Normal [facility] Family Medicine Office/Clini c Noteon 11-09-2022 Family Medicine Office/Clinic Note Normal [facility] Comment on above: Result Comment: Elec tronically Signed By: Katelyn Mora\.br\Date and Time Signed: 11/09/22 12:37 EDT Physician Referralon 023 Physician Referral [id number] CD:127 Normal [facility] Discharge Instructionson Discharge Instructions [id number] 0CD:127 Normal [facility] Family Medicine Office/Clini c Noteon 11-03-2022 Family Medicine Office/Clinic Note Normal [facility] Comment on above: Result Comment: Elec tronically Signed By: GIOVANNI HAWTHORNE PA-C\.br\Date and Time Signed: 11/03/22 11:04 EDT Patient Educationon 11-04-19 Patient Education Normal [facility] Provider Letteron 11-03-2022 Provider Letter Normal [facility] Provider Letter Normal [facility] Provider Letter Normal [facility] CHEMISTRYOrdered By: SYSTEM SYSTEM on 11-02-2022 Cholesterol [Mass/Vol] 161 mg/dL Normal 120 - 200 mg/dL [facility] Cholesterol in HDL [Mass/Vol] 36 mg/dL Invalid Interpretation Code [facility] Cholesterol in LDL [Mass/Vol] 103 mg/dL Normal <=129mg/dL [facility] Cholesterol in VLDL [Mass/Vol] 14 mg/dL Normal 7 - 40 mg/dL [facility] Triglyceride [Mass/Vol] 71 mg/dL Normal <=149mg/dL [facility] TSH Qn 2.85 m[IU]/L Normal 0.34 - 5.60 mcIU/mL [facility] CHEMISTRYOrdered By: Jayme Reaves on 11-02-2022 HbA1c (Bld) [Mass fraction] 5.2 % Normal <=5.9% [facility]SS Consultation Noteon 11-03-19 Consultation Note Normal [facility] Comment on above: Result Comment: Elec tronically Signed By: Cherelle BURDEN, Sailaja Hilliard\.br\Date and Time Signed: 11/02/22 07:03 EDT\.br\Electronically Co-Signed By: Wilbert Viveros DO\.br\Date and Time Co-Signed: 11/02/22 09:29 EDT Discharge Note-Nursingon Discharge Note-Nursing Normal [facility] HunD4woy 11-02-2022 HbA1c (Bld) [Mass fraction] 5.2 % Normal <=5.9 [facility] Comment on above: Performed By: #### 1 2388751, 062077767, 2068084 ####[facility] [address] [place] [address] Inpatient Clinical Summaryon 11-02-2022 Inpatient Clinical Summary Normal [facility] Inpatient Patient Summaryon 11-02-2022 Inpatient Patient Summary Normal [facility] Interdisciplinary Note - Jeff e Manageron 11-02-2022 Interdisciplinary Note - Production Planner Normal [facility] Comment on above: Result Comment: Elec tronically Signed By: Darin BURDEN, Paloma\.reina\Date and Time Signed: 11/02/22 09:37 EDT Interdisciplinary Note - Juliet n 11-02-2022 Interdisciplinary Note - OT OT ampac six clicks score = no further OT needs. Pt is Ind w/ basic adls/transfers in room. Pt has symmetrical, intact Bue strength/AROM/coordina tion/sensation. Pt denies t/n, heaviness rue this date. DC inpatient OT services. Normal [facility] Interdisciplinary Note - Soc ial Workeron 11-02-2022 Interdisciplinary Note - Clinical Data Management Director Normal [facility] Lipid Panelon 11-02-2022 Cholesterol [Mass/Vol] 161 mg/dL Normal 120-200 [facility] Comment on above: Performed By: #### 1 0469750, 461516087, 9186237 ####[facility] [address] [place] [address] Cholesterol in HDL [Mass/Vol] 36 mg/dL Invalid Interpretation Code [facility] Comment on above: Result Comment: HDL > or equal to 60 mg/dL: Low cardiovascular riskHDL < 40 mg/dL : High cardiovascular risk Performed By: #### 1 4268239, 815376704, 8677960 ####[facility] [address] [place] [address] Cholesterol in LDL [Mass/Vol] 103 mg/dL Normal <=129 [facility] Comment on above: Performed By: #### 1 0481629, 010842881, 9173461 ####[facility] [address] [place] [address] Cholesterol in VLDL [Mass/Vol] 14 mg/dL Normal 7-40 [facility] Comment on above: Performed By: #### 1 3495276, 923221072, 4471639 ####[facility] [address] [place] [address] Triglyceride [Mass/Vol] 71 mg/dL Normal <=149 [facility] Comment on above: Performed By: #### 1 0866330, 553040459, 1024407 ####[facility] [address] [place] [address] Patient Education - Texton 0 11-02-2022 Patient Education - Text Normal [facility] TSH With T4fr Reflexon 11-02 TSH Qn 2.85 m[IU]/L Normal 0.34-5.60 [facility] Comment on above: Performed By: #### 1 2768234, 694699514, 4034167 ####[facility] [address] [place] [address] Auto Diffon 11-01-2022 Basophils/100 WBC (Bld) 1.3 % Normal 0.0-2.0 [facility] Comment on above: Order Comment: Order Added by Discern Expert. Performed By: #### 1 2515622, 44166992, 9059200, 4135837, 89679553, 7549225 ####[facility] [address] [place] [address] Basophils/Leukocytes Auto (Bld) [Pure # fraction] 0.1 E9/L Normal 0.0-0.2 [facility] Comment on above: Order Comment: Order Added by Discern Expert. Performed By: #### 1 5581250, 81020792, 1817219, 5465713, 60222828, 9436045 ####[facility] [address] [place] [address] Eosinophils/100 WBC (Bld) 2.7 % Normal 0.0-8.0 [facility] Comment on above: Order Comment: Order Added by Discern Expert. Performed By: #### 1 1955298, 00960147, 6814096, 9474721, 59524844, 8222274 ####[facility] [address] [place] [address] Eosinophils/Leukocyte s Auto (Bld) [Pure # fraction] 0.2 E9/L Normal 0.0-0.5 [facility] Comment on above: Order Comment: Order Added by Discern Expert. Performed By: #### 1 3892106, 47675836, 7703484, 9215759, 95400224, 2066055 ####[address] [place] [address] Lymphocytes/100 WBC (Bld) 30.1 % Normal 14.0-50.0 [facility] Comment on above: Order Comment: Order Added by Discern Expert. Performed By: #### 1 2035399, 69666235, 4407878, 7494733, 59492170, 4830504 ####[address] [address] Lymphocytes/Leukocyte s Auto (Bld) [Pure # fraction] 2.3 E9/L Normal 1.0-4.0 [facility] Comment on above: Order Comment: Order Added by Discern Expert. Performed By: #### 1 9825985, 01234415, 2522360, 7899034, 47635706, 1329309 ####[address] [place] [address] Monocytes/100 WBC (Bld) 7.1 % Normal 4.0-14.0 [facility] Comment on above: Order Comment: Order Added by Discern Expert. Performed By: #### 1 1820745, 28927096, 2445219, 2844741, 51555630, 6028957 ####[address] [place] [address] Monocytes/Leukocytes Auto (Bld) [Pure # fraction] 0.5 E9/L Normal 0.2-1.0 [facility] Comment on above: Order Comment: Order Added by Discern Expert. Performed By: #### 1 0958823, 54766775, 4190369, 7336215, 10990950, 9524659 ####[facility] [address] [place] [address] Neutrophils/100 WBC (Bld) 58.8 % Normal 36.0-75.0 [facility] Comment on above: Order Comment: Order Added by Discern Expert. Performed By: #### 1 6975438, 59378969, 6782462, 6101911, 60495382, 3109592 ####[facility] [address] [place] [address] Neutrophils/Leukocyte s Auto (Bld) [Pure # fraction] 4.5 E9/L Normal 2.0-7.5 [facility] Comment on above: Order Comment: Order Added by Raúl Expert. Performed By: #### 1 7684834, 13184371, 5855018, 8383492, 53243171, 9654315 ####[facility] [address] [place] [address] BMPon 11-01-2022 Creatinine [Mass/Vol] 0.8 mg/dL Normal 0.5-1.3 [facility] Comment on above: Performed By: #### 1 6100608, 62281840, 5646259, 1185291, 59696436, 2318764 ####[facility] [address] [place] [address] Urea nitrogen [Mass/Vol] 12 mg/dL Normal 5-21 [facility] Comment on above: Performed By: #### 1 2924068, 08840568, 4596679, 0325894, 89617794, 9640795 ####[facility] [address] [place] [address] Urea nitrogen/Creatinine [Mass ratio] 15 No Units Normal 10-20 [facility] Comment on above: Performed By: #### 1 0863290, 78852777, 1102316, 7349732, 87166123, 3780565 ####[facility] [address] [place] [address] Anion gap [Moles/Vol] 10 mmol/L Normal 6-16 [facility] Comment on above: Performed By: #### 1 8587212, 14097328, 7881429, 0537811, 94550933, 9485569 ####[facility] [address] [place] [place] [address] Calcium [Mass/Vol] 9.5 mg/dL Normal 8.9-11.1 [facility] Comment on above: Performed By: #### 1 4535694, 46849921, 4725958, 0264163, 93633745, 3493631 ####[facility] [address] [place] [address] Chloride [Moles/Vol] 114 mmol/L High 101-111 [facility] Comment on above: Performed By: #### 1 6575849, 01220369, 1453793, 7799830, 00998825, 3527348 ####[facility] [address] [place] [place] [address] CO2 [Moles/Vol] 20 mmol/L Low 21-31 [facility] Comment on above: Performed By: #### 1 2216765, 98480000, 8174357, 9407633, 89669288, 8113652 ####[facility] [address] [place] [address] Glucose [Mass/Vol] 99 mg/dL Normal 55-199 [facility] Comment on above: Result Comment: If t his glucose result represents a fasting glucose, interpretation should refer to the following reference range: 55-99 mg/dL Performed By: #### 1 0439345, 65519271, 0048040, 9563305, 28852195, 4963084 ####[facility] [address] [place] [address] Potassium [Moles/Vol] 3.9 mmol/L Normal 3.5-5.3 [facility] Comment on above: Performed By: #### 1 0460558, 01994239, 2199157, 3575323, 53056249, 7836421 ####[facility] [address] [place] [address] Sodium [Moles/Vol] 140 mmol/L Normal 135-145 [facility] Comment on above: Performed By: #### 1 8960226, 34299066, 5328484, 2852106, 33712394, 5753298 ####[address] [place] [address] CBC w/ Auto Diffon 3 Erythrocyte distribution width (RBC) [Ratio] 13.5 % Normal 10.9-14.2 [facility] Comment on above: Performed By: #### 1 8394393, 34085684, 5471102, 2340267, 62067737, 8750174 ####[address] [place] [address] Hematocrit (Bld) [Volume fraction] 40.4 % Normal 34.0-46.0 [facility] Comment on above: Performed By: #### 1 8988652, 59958529, 7659218, 5849135, 26749887, 9704105 ####[address] [address] Hemoglobin (Bld) [Mass/Vol] 13.7 g/dL Normal 12.0-16.0 [facility] Comment on above: Performed By: #### 1 0552897, 56126178, 4778554, 1719025, 15369389, 2707400 ####[facility] [address] [place] [address] MCH (RBC) [Entitic mass] 29.5 pg Normal 27.0-34.0 [facility] Comment on above: Performed By: #### 1 5570801, 50423248, 2457964, 0760391, 57971309, 6575745 ####[address] [place] [address] MCHC (RBC) [Mass/Vol] 34.0 g/dL Normal 31.4-36.0 [facility] Comment on above: Performed By: #### 1 6045735, 15074388, 9420483, 1659526, 03624999, 9566428 ####[facility] [address] [place] [address] MCV (RBC) [Entitic vol] 86.7 fL Normal 80.0-100.0 [facility] Comment on above: Performed By: #### 1 4670521, 78759101, 7873480, 3782386, 87691699, 5515171 ####[address] [place] [address] Platelet mean volume (Bld) [Entitic vol] 8.3 fL Normal 6.4-10.8 [facility] Comment on above: Performed By: #### 1 2227631, 86775529, 9439680, 4459489, 91683048, 3058971 ####[address] [address] Platelets (Bld) [#/Vol] 236.0 E9/L Normal 150.0-500.0 [facility] Comment on above: Performed By: #### 1 9411035, 18225336, 9197898, 8358980, 41500021, 1157962 ####[address] [address] RBC (Bld) [#/Vol] 4.7 E12/L Normal 4.3-5.9 [facility] Comment on above: Performed By: #### 1 8302378, 71635116, 4493805, 9371326, 32849382, 5338244 ####[address] [place] [address] WBC corrected for nucl RBC Auto (Bld) [#/Vol] 7.7 E9/L Normal 4.0-11.0 [facility] Comment on above: Performed By: #### 1 4618281, 52663106, 0101999, 9900291, 60085299, 2422467 ####[facility] [address] [place] [address] CHEMISTRYOrdered By: SYSTEM SYSTEM on 11-01-2022 Anion gap [Moles/Vol] 10 mmol/L Normal 6 - 16 mEq/L [facility] Calcium [Mass/Vol] 9.5 mg/dL Normal 8.9 - 11. 1 mg/dL [facility] Chloride [Moles/Vol] 114 mmol/L High 101 - 1 11 mmol/L [facility] CO2 [Moles/Vol] 20 mmol/L Low 21 - 31 mmol/L [facility] Creatinine [Mass/Vol] 0.8 mg/dL Normal 0.5 - 1.3 mg/dL [facility] GFR/1.73 sq M.predicted among non-blacks MDRD (S/P/Bld) [Vol rate/Area] 104 mL/min/1.73 m2 Normal >=59mL/min/1 .73 m2 [facility] S Glucose [Mass/Vol] 99 mg/dL Normal 55 - 199 mg/dL [facility] Potassium [Moles/Vol] 3.9 mmol/L Normal 3.5 - 5.3 mmol/L [facility] Sodium [Moles/Vol] 140 mmol/L Normal 135 - 145 mmol/L [facility] [place] Troponin I.cardiac [Mass/Vol] 2.50 pg/mL Low 10.10 - 27.10 pg/mL [facility] [place] Urea nitrogen [Mass/Vol] 12 mg/dL Normal 5 - 21 mg/dL [facility] [place] Urea nitrogen/Creatinine [Mass ratio] 15 mg/mg Normal 10 - 20 [facility] [place] CHEMISTRYOrdered By: Lab ROP User on 11-01-2022 Glucose [Mass/Vol] 109 mg/dL High 55 - 99 mg/dL [facility] [facility] [place] Device SN [id number] Invalid Interpretation Code [facility] [place] User ID [id number] Invalid Interpretation Code [facility] [place] Username ANT [email or web address] Invalid Interpretation Code [facility] Sub[place] COAGULATIONOrdered By: Marce Douglass on 11-01-2022 aPTT Coag (PPP) [Time] 34.8 s Normal 25.1 - 36.5 second(s) [facility] Auto Coag INR Coag (PPP) [Relative time] 1.1 {INR} Invalid Interpretation Code [facility] [place] PT Coag (PPP) [Time] 12.3 s Normal 9.4 - 1 2.5 second(s) [facility] [place] Head or Brain w/o Contras ton 11-01-2022 CT Head or Brain w/o Contrast Normal [facility] CTA Headon 11-01-2022 CTA Head Normal [facility] CTA Neckon 11-01-2022 CTA Neck Normal [facility] Capillary Glucose POCon 10-06 Glucose [Mass/Vol] 109 mg/dL High 55-99 [facility] Comment on above: Performed By: #### 2 [id number] ####[facility] [address] [place] [address] Consent for Treatmenton 10-06 Consent for Treatment [id number]#1.0 0CD:127 Normal [facility] ED Clinical Summaryon 2022 ED Clinical Summary Normal [facility] ED Note-Physicianon 11-02-19 ED Note-Physician Normal [facility] Comment on above: Result Comment: Elec tronically Signed By: Karie Newman PA-C\.br\Date and Time Signed: 11/01/22 15:29 EDT\.br\Electronically Co-Signed By: Nicolas Izquierdo DO\.br\Date and Time Co-Signed: 11/01/22 18:34 EDT ED Patient Education Noteon 11-01-2022 ED Patient Education Note Normal [facility] ED Patient Summaryon 023 ED Patient Summary Normal [facility] HEMATOLOGYOrdered By: SYSTEM SYSTEM on 11-01-2022 Basophils/100 WBC (Bld) 1.3 % Normal 0.0 - 2.0 % [facility] HemeAutoSS Basophils/Leukocytes Auto (Bld) [Pure # fraction] 0.1 E9/L Normal 0.0 - 0.2 E9/L [facility] HemeAutoSS Eosinophils/100 WBC (Bld) 2.7 % Normal 0.0 - 8.0 % [facility] HemeAutoSS Eosinophils/Leukocyte s Auto (Bld) [Pure # fraction] 0.2 E9/L Normal 0.0 - 0.5 E9/L [facility] HemeAutoSS Lymphocytes/100 WBC (Bld) 30.1 % Normal 14.0 - 50.0 % [facility] HemeAutoSS Lymphocytes/Leukocyte s Auto (Bld) [Pure # fraction] 2.3 E9/L Normal 1.0 - 4.0 E9/L [facility] HemeAutoSS Monocytes/100 WBC (Bld) 7.1 % Normal 4.0 - 14.0 % [facility] HemeAutoSS Monocytes/Leukocytes Auto (Bld) [Pure # fraction] 0.5 E9/L Normal 0.2 - 1.0 E9/L [facility] HemeAutoSS Neutrophils/100 WBC (Bld) 58.8 % Normal 36.0 - 75.0 % [facility] HemeAutoSS Neutrophils/Leukocyte s Auto (Bld) [Pure # fraction] 4.5 E9/L Normal 2.0 - 7.5 E9/L [facility] HemeAutoSS HEMATOLOGYOrdered By: Deirdre Oates on 11-01-2022 Erythrocyte distribution width (RBC) [Ratio] 13.5 % Normal 10.9 - 14.2 % [facility] HemeAutoSS Hematocrit (Bld) [Volume fraction] 40.4 % Normal 34.0 - 46.0 % [facility] HemeAutoSS Hemoglobin (Bld) [Mass/Vol] 13.7 g/dL Normal 12.0 - 16.0 gm/dL [facility]eAutoSS MCH (RBC) [Entitic mass] 29.5 pg Normal 27.0 - 34.0 pg [facility] HemeAutoSS MCHC (RBC) [Mass/Vol] 34.0 g/dL Normal 31.4 - 36.0 gm/dL [facility] HemeAutoSS MCV (RBC) [Entitic vol] 86.7 fL Normal 80.0 - 100.0 fL [facility] HemeAutoSS Platelet mean volume (Bld) [Entitic vol] 8.3 fL Normal 6.4 - 10.8 fL [facility] HemeAutoSS Platelets (Bld) [#/Vol] 236.0 E9/L Normal 150.0 - 500.0 E9/L [facility] HemeAutoSS RBC (Bld) [#/Vol] 4.7 E12/L Normal 4.3 - 5.9 E12/L [facility] HemeAutoSS WBC corrected for nucl RBC Auto (Bld) [#/Vol] 7.7 E9/L Normal 4.0 - 11.0 E9/L [facility] MRI Brain w/o Contraston MRI Brain w/o Contrast Normal [facility] MRI Spine Cervical w/o Contr jack 11-01-2022 MRI Spine Cervical w/o Contrast Normal [facility] PT & PTTon 11-01-2022 aPTT Coag (PPP) [Time] 34.8 second(s) Normal 25.1-36.5 [facility] Comment on above: Result Comment: Para meter 15 days - 4 weeks 1 - 5 months 6 - 11 months 1 - 5 years 6 - 10 years 11 - 17 years PTT Mean: 35.4 (27.6-45.6) Mean: 33.5 (24.8-40.7) Mean: 32.4 (25.1-40.7) Mean: 31.6 (24.0-39.2) Mean: 31.6 (26.9-38.7) Mean: 31.0 (24.6-38.4) Pediatric Reference ranges were obtained from a study by Osmin Jiménez et al. prepared from 1437 samples obtained at 7 different centers using the same coagulation reagent and instrumentation as [facility] Currently there are no coagulation studies available worldwide for children to 14 days, and no normal ranges. Heparin therapeutic range (represented by Anti-Factor Xa activity of 0.2 - 0.4 U/mL) corresponds to PTT of 56.6 - 109.0 sec. Performed By: #### 1 [id number], 30432361, 0945496, 7545591, 52258598, 9769334 ####[facility] [address] [place] [address] INR Coag (PPP) [Relative time] 1.1 {INR} Invalid Interpretation Code [facility] Comment on above: Result Comment: INR results are specifically intended to assess patients stabilized on long-term Anticoagulation therapy suggested INR?s ?Less Intensive Anticoagulation? 2.0 ? 3.0Conventional Range 3.0 ? 4.5 Performed By: #### 1 [id number], 42818192, 4067459, 8045846, 83871030, 7715007 ####[facility] [address] [place] [address] PT Coag (PPP) [Time] 12.3 second(s) Normal 9.4-12.5 [facility] Comment on above: Result Comment: 15 d ays - 4 weeks 1 - 5 months 6 -11 months 1 ? 5 years 6 ? 10 years 11 -17 years Mean: 11.2 (9.5 ? 12.6) Mean: 11.0 (9.7 ? 12.8) Mean: 11.0 (9.8 ? 13.0) Mean: 11.3 (9.9 ? 13.4) Mean: 11.7 (10.0 ? 14.6) Mean: 11.8 (10.0 - 14.1) Pediatric Reference ranges were obtained from a study by Osmin Jiménez et al. prepared from 1437 samples obtained at 7 different centers using the same coagulation reagent and instrumentation as [facility] Currently there are no coagulation studies available worldwide for children to 14 days, and no normal ranges. Performed By: #### 1 3022724, 41373357, 1016957, 8920591, 77633381, 6177687 ####[facility] [address] [place] [address] RAD - MRI Screening Formon 0 11-01-2022 RAD - MRI Screening Form [id number]#[id number] 0CD:127 Normal [facility] SEROLOGYOrdered By: Brian kelly on 11-01-2022 HCG.beta subunit (U) [Moles/Vol] Negative Normal [facility] Man Sero Troponin 0 Hr.on 11-01-2022 Troponin I.cardiac [Mass/Vol] 2.50 pg/mL Low 10.10-27.10 [facility] Comment on above: Result Comment: The 95% CI (Confidence Interval) PPV (Positive Predictive Value) for myocardial infarction in females is 38 pg/mL, in males 51 pg/mL. The results should be used in conjunction with clinical conditions of myocardial infarction.(Access High Sensitivity Troponin I Instructions For Use, Naty Hopkins, October 2017) Performed By: #### 1 [id number], 31551041, 4009753, 0903462, 34586814, 3197807 ####[facility] [address] [place] [address] U BetaHcg Qualon 11-01-2022 HCG.beta subunit (U) [Moles/Vol] Negative Normal [facility] Comment on above: Performed By: #### 2 6131164 ####[facility] [address] [place] [address] UA With Cult Reflexon 2022 Bacteria LM Ql (Urine sed) TRACE Normal Trace [facility] Comment on above: Performed By: #### 1 9052649 ####[facility] [address] [place] [address] Bilirubin Ql (U) Negative Normal Negative [facility] Comment on above: Performed By: #### 1 6574210 ####[address] [address] Clarity (U) CLEAR Normal Clear [facility] Comment on above: Performed By: #### 1 6776139 ####[facility] [address] [place] [address] Color (U) YELLOW Normal Yellow [facility] Comment on above: Performed By: #### 1 1309269 ####[facility] [address] [place] [address] Epithelial cells.squamous LM.HPF (Urine sed) [#/Area] 0-2 Normal 0-2 [facility] Comment on above: Performed By: #### 1 9821090 ####[facility] [address] [place] [address] Glucose Test strip (U) [Mass/Vol] Negative Normal Negative [facility] Comment on above: Performed By: #### 1 6974170 ####[facility] [address] [place] [address] Hemoglobin Ql (U) TRACE Abnormal Negative [facility] Comment on above: Performed By: #### 1 8839563 ####[facility] [address] [address] Ketones (U) [Mass/Vol] Negative Normal Negative [facility] Comment on above: Performed By: #### 1 3656961 ####[address] [address] [place].plasma/Lithiu m.RBC (Bld) [Mass ratio] 0-3 Normal 0-3 [facility] Comment on above: Performed By: #### 1 2396870 ####[address] [address] Nitrite Ql (U) Negative Normal Negative [facility] Comment on above: Performed By: #### 1 1907420 ####[address] [address] pH (U) 6.0 [pH] Invalid Interpretation Code 5.0-9.0 [facility] Comment on above: Performed By: #### 1 4466901 ####[address] [address] Protein (U) [Mass/Vol] Negative Normal Negative [facility] Comment on above: Performed By: #### 1 4832922 ####[address] [address] Specific gravity (U) [Rel density] 1.010 Invalid Interpretation Code 1.005-1.030 [facility] Comment on above: Performed By: #### 1 4035149 ####[address] [address] Type of Urine collection method Random Urine Normal [facility] Comment on above: Performed By: #### 1 4117959 ####[address] [address] Urobilinogen Qn (U) 0.2 {Ladonna'U}/dL Normal 0.0-1.0 [facility] Comment on above: Performed By: #### 1 7933769 ####[address] [address] WBC Auto Ql (U) Negative Normal Negative [facility] Comment on above: Performed By: #### 1 8649361 ####[facility] [address] [place] [address] WBC LM.HPF (Urine sed) [#/Area] 0-5 Normal 0-5 [facility] Comment on above: Performed By: #### 1 5631148 ####[facility] [address] [place] [address] URINALYSISOrdered By: Brian Dejesus on 11-01-2022 Bacteria LM Ql (Urine sed) Trace /HPF Normal Trace/HPF [facility] UA Auto SS Bilirubin Ql (U) Negative (11/01/22 6:27 PM) Normal Negative [facility] UA Auto SS Clarity (U) Clear (11/01/22 6:27 PM) Normal Clear [facility] UA Auto SS Color (U) Yellow (11/01/22 6:27 PM) Normal Yellow [facility] UA Auto SS Epithelial cells.squamous LM.HPF (Urine sed) [#/Area] 0-2 /HPF Normal 0-2/HPF [facility] UA Aut o SS Glucose Test strip (U) [Mass/Vol] Negative (11/01/22 6:27 PM) Normal Negative [facility] UA Auto SS Hemoglobin Ql (U) Trace *ABN* (11/01/22 6:27 PM) Invalid Interpretation Code Negative [facility] UA Auto SS Ketones (U) [Mass/Vol] Negative (11/01/22 6:27 PM) Normal Negative [facility] UA Auto SS [place].plasma/Lithiu m.RBC (Bld) [Mass ratio] 0-3 /HPF Normal 0-3/HPF [facility] UA Auto SS Nitrite Ql (U) Negative (11/01/22 6:27 PM) Normal Negative [facility] UA Auto SS pH (U) 6.0 *NA* (11/01/22 6:27 PM) Invalid Interpretation Code 5.0 - 9.0 [facility] UA Auto SS Protein (U) [Mass/Vol] Negative (11/01/22 6:27 PM) Normal Negative [facility] UA Auto SS Specific gravity (U) [Rel density] 1.010 *NA* (11/01/22 6:27 PM) Invalid Interpretation Code 1.005 - 1.030 [facility] UA Auto SS UA Spec Desc Random Urine (11/01/22 6:27 PM) Normal [facility] Auto SS Urobilinogen Qn (U) 0.8242019 {Ladonna'U}/dL Normal 0.0 - 1.0 EU/dL [facility] Auto SS WBC Auto Ql (U) Negative (11/01/22 6:27 PM) Normal Negative [facility] Auto SS WBC LM.HPF (Urine sed) [#/Area] 0-5 /HPF Normal 0-5/HPF [facility] Auto SS eGFRon 11-01-2022 GFR/1.73 sq M.predicted among non-blacks MDRD (S/P/Bld) [Vol rate/Area] 104 mL/min/1.73 m2 Normal >=59 [facility] Comment on above: Order Comment: Order added by Discern Expert. Result Comment: J2Ee Android Developer lina kidney disease could be indicated at eGFR's of less than 60 mL/min/1.73m2. Kidney failure is indicated at less than 15 mL/min/1.73m2. Performed By: #### 1 [id number], 77398737, 4263440, 4422827, 23203105, 8863823 ####[facility] [address] [place] [address] CT Head or Brain w/o Contras ton 09-29-2022 CT Head or Brain w/o Contrast Normal [facility] Consent for Treatmenton 09-05 Consent for Treatment [id number] 0CD:127 Normal [facility] Discharge Instructionson Discharge Instructions [id number] CD:127 Normal [facility] ED Clinical Summaryon 2022 ED Clinical Summary Normal [facility] ED Note-Physicianon 09-30-19 ED Note-Physician Normal [facility] Comment on above: Result Comment: Elec tronically Signed By: Winnie Paula DO\Date and Time Signed: 09/29/22 01:41 EDT ED Patient Education Noteon 09-29-2022 ED Patient Education Note Normal [facility] ED Patient Summaryon 023 ED Patient Summary Normal [facility] RAD - Preliminary Cat Scan R eporton 09-29-2022 RAD - Preliminary Cat Scan Report [id number]#1.0 0CD:127 Normal [facility] Family Medicine Office/Clini c Noteon 07-02-2022 Family Medicine Office/Clinic Note Normal [facility] Comment on above: Result Comment: Elec tronically Signed By: KATELYN ROBERTS CNP\.br\Date and Time Signed: 07/02/22 12:45 EDT Patient Educationon 07-03-19 Patient Education Normal [facility] Coding Summary.on 06-23-[address] [facility] Medicine Office/Clini c Noteon 06-23-2022 [facility] Medicine Office/Clinic Note Normal [facility] Comment on above: Result Comment: Elec tronically Signed By: KATELYN ROBERTS CNP\.br\Date and Time Signed: 06/23/22 21:34 EDT\.br\Electronically Co-Signed By: Deandre Brizuela\.br\Date and Time Co-Signed: 06/22/22 16:44 EDT Patient Educationon 06-23-19 Patient Education Normal [facility] XR Hand 3+ Views Righton XR Hand 3+ Views Right [facility] Consent for Treatmenton 06-05 Consent for Treatment [id number]#1.0 0CD:127 Normal [facility] Family Medicine Office/Clini c Noteon 05-23-2022 [facility] Medicine Office/Clinic Note Normal [facility] Comment on above: Result Comment: Elec tronically Signed By: KATELYN ROBERTS CNP\.br\Date and Time Signed: 05/23/22 15:36 EDT Patient Educationon 05-24-19 Patient Education Normal [facility] Coding Summary.on 05-14-2022 Coding Summary. Normal [facility] Ambulatory Visit Summaryon 0 05-13-2022 Ambulatory Visit Summary Normal [facility] Family Medicine Office/Clini c Noteon 05-13-2022 Family Medicine Office/Clinic Note Normal [facility] Comment on above: Result Comment: Elec tronically Signed By: CODY Smith APRN, [place] X\.br\Date and Time Signed: 05/13/22 11:29 EST Patient Educationon 05-14-19 23 Patient Education Normal [facility] Discharge Instructionson Discharge Instructions [id number]. 00CD:127 Normal [facility] ED Clinical Summaryon 2022 ED Clinical Summary Normal [facility] ED Note-Physicianon 05-13-19 ED Note-Physician Normal [facility] Comment on above: Result Comment: Elec tronically Signed By: Quintin Murcia DO\.br\Date and Time Signed: 05/11/22 23:35 EST ED Patient Education Noteon 05-12-2022 ED Patient Education Note Normal [facility] ED Patient Summaryon 023 ED Patient Summary Normal [facility] Grp A Strp PCRon 05-12-2022 Group A Strep Negative Normal [facility] Comment on above: Order Comment: Order Added on by Discern Rule. Result Comment: Test ing performed using DNA amplification. Performed By: #### 2 [id number], [id number] ####[facility] [address] [place] [address] Grp A Strp Intrl Ctrl Pass Normal Fis [facility] Comment on above: Order Comment: Order Added on by Discern Rule. Performed By: #### 2 [id number], [id number] ####[facility] [address] [place] [address] Rapid Strep w/rfxon 05-13-19 S. pyogenes Ag IA.rapid Ql (Throat) Negative Normal Negative [facility] Comment on above: Performed By: #### 2 [id number], [id number] ####[facility] [address] [place] [address] XR Chest Single Viewon 05-12 XR Chest Single View Normal Fish er [facility] Consent for Treatmenton 03-0 Consent for Treatment [id number] 0CD:127 Normal [facility] MICRO OTHER TESTSOrdered By: Brian Dejesus on 05-11-2022 S. pyogenes Ag IA.rapid Ql (Throat) Negative (05/11/22 10:19 PM) Normal Negative [facility] [place] Sero Coding Summary.on 04-29-2022 Coding Summary. Normal [facility] Auto Diffon 04-27-2022 Basophils/100 WBC (Bld) 0.9 % Normal 0.0-2.0 [facility] Comment on above: Order Comment: Order Added by Discern Expert. Performed By: #### 2 272763, 4240510, 7823630, 16163075, 9319807, 7755933 ####[facility] [address] [place] [address] Basophils/Leukocytes Auto (Bld) [Pure # fraction] 0.1 E9/L Normal 0.0-0.2 [facility] Comment on above: Order Comment: Order Added by Discern Expert. Performed By: #### 2 742957, 2310407, 7500781, 97178306, 7118327, 6378314 ####[facility] [address] [place] [address] Eosinophils/100 WBC (Bld) 2.7 % Normal 0.0-8.0 [facility] Comment on above: Order Comment: Order Added by Discern Expert. Performed By: #### 2 457742, 2341019, 0926878, 94287400, 1108355, 8554602 ####[facility] [address] [place] [address] Eosinophils/Leukocyte s Auto (Bld) [Pure # fraction] 0.2 E9/L Normal 0.0-0.5 [facility] Comment on above: Order Comment: Order Added by Discern Expert. Performed By: #### 2 531547, 5872567, 6249247, 65693990, 7078641, 7610477 ####[facility] [address] [place] [address] Lymphocytes/100 WBC (Bld) 30.4 % Normal 14.0-50.0 [facility] Comment on above: Order Comment: Order Added by Discern Expert. Performed By: #### 2 309393, 4699221, 9084674, 00748369, 9173150, 5010275 ####[place] [address] [place] [address] Lymphocytes/Leukocyte s Auto (Bld) [Pure # fraction] 2.1 E9/L Normal 1.0-4.0 [facility] Comment on above: Order Comment: Order Added by Discern Expert. Performed By: #### 2 046994, 9815866, 8197221, 35106262, 5472643, 5635224 ####[address] [address] Monocytes/100 WBC (Bld) 7.2 % Normal 4.0-14.0 [facility] Comment on above: Order Comment: Order Added by Discern Expert. Performed By: #### 2 765982, 5098664, 4131048, 90719604, 4573397, 0021071 ####[place] [place] [address] Monocytes/Leukocytes Auto (Bld) [Pure # fraction] 0.5 E9/L Normal 0.2-1.0 [facility] Comment on above: Order Comment: Order Added by Discern Expert. Performed By: #### 2 090568, 6875285, 5057648, 71704579, 5764942, 6181329 ####[address] [place] [address] Neutrophils/100 WBC (Bld) 58.8 % Normal 36.0-75.0 [facility] Comment on above: Order Comment: Order Added by Discern Expert. Performed By: #### 2 766859, 0141362, 9390320, 19737308, 2317383, 3606155 ####[address] [place] [address] Neutrophils/Leukocyte s Auto (Bld) [Pure # fraction] 4.1 E9/L Normal 2.0-7.5 [facility] Comment on above: Order Comment: Order Added by Discern Expert. Performed By: #### 2 897788, 8989052, 7318457, 06743044, 6134756, 8586781 ####[facility] [address] [place] [address] BMPon 04-27-2022 Anion gap [Moles/Vol] 15 mmol/L Normal 6-16 [facility] Comment on above: Performed By: #### 2 127749, 4587167, 9458542, 16465754, 9186921, 4873277 ####[facility] [address] [place] [address] Calcium [Mass/Vol] 9.4 mg/dL Normal 8.9-11.1 [facility] Comment on above: Performed By: #### 2 572893, 8309227, 8702820, 10650556, 0850196, 3390542 ####[facility] [address] [place] [address] Chloride [Moles/Vol] 104 mmol/L Normal 101-111 [facility] Comment on above: Performed By: #### 2 802461, 6654372, 2865376, 99245606, 5300954, 7644237 ####[facility] [address] [place] [address] CO2 [Moles/Vol] 23 mmol/L Normal 21-31 [facility] Comment on above: Performed By: #### 2 834878, 7483654, 2753416, 16573342, 6305792, 5066011 ####[facility] [address] [place] [address] Creatinine [Mass/Vol] 0.8 mg/dL Normal 0.5-1.3 [facility] Comment on above: Performed By: #### 2 988184, 9478855, 4239313, 23623153, 1437554, 7723140 ####[facility] [address] [place] [address] Glucose [Mass/Vol] 89 mg/dL Normal 55-199 [facility] Comment on above: Result Comment: If t his glucose result represents a fasting glucose, interpretation should refer to the following reference range: 55-99 mg/dL Performed By: #### 2 179879, 8944910, 8138047, 13731828, 2196374, 0928933 ####[facility] [address] [place] [address] Potassium [Moles/Vol] 4.4 mmol/L Normal 3.5-5.3 [facility] Comment on above: Performed By: #### 2 676883, 7624319, 8248468, 86215393, 5491982, 6252739 ####[facility] [address] [place] [address] Sodium [Moles/Vol] 138 mmol/L Normal 135-145 [facility] Comment on above: Performed By: #### 2 856397, 8899843, 7477598, 03596673, 5249003, 2107137 ####[facility] [address] [place] [address] Urea nitrogen [Mass/Vol] 22 mg/dL High 5-21 [facility] Comment on above: Performed By: #### 2 715410, 7712902, 9287230, 18946893, 2338724, 2809729 ####[facility] [address] [place] [address] Urea nitrogen/Creatinine [Mass ratio] 28 No Units High 10-20 [facility] Comment on above: Performed By: #### 2 823258, 1485521, 0537797, 82402370, 1138970, 2486964 ####[facility] [address] [place] [address] CBC w/ Auto Diffon 3 Erythrocyte distribution width (RBC) [Ratio] 13.8 % Normal 10.9-14.2 [facility] Comment on above: Performed By: #### 2 001772, 4797110, 5652191, 47683145, 5136730, 9088676 ####[place] [address] Hematocrit (Bld) [Volume fraction] 41.8 % Normal 34.0-46.0 [facility] Comment on above: Performed By: #### 2 741610, 8237254, 1630678, 12690331, 4246616, 2568245 ####[place] [address] Hemoglobin (Bld) [Mass/Vol] 14.2 g/dL Normal 12.0-16.0 [facility] Comment on above: Performed By: #### 2 749311, 1813154, 1913440, 25451422, 1698752, 8041272 ####[place] [address] MCH (RBC) [Entitic mass] 29.4 pg Normal 27.0-34.0 [facility] Comment on above: Performed By: #### 2 042107, 4960804, 9588903, 88637105, 2025029, 3079744 ####[place] [address] MCHC (RBC) [Mass/Vol] 34.0 g/dL Normal 31.4-36.0 [facility] Comment on above: Performed By: #### 2 257470, 5172974, 1572510, 13047875, 0127820, 1193094 ####[address] [address] MCV (RBC) [Entitic vol] 86.5 fL Normal 80.0-100.0 [facility] Comment on above: Performed By: #### 2 878973, 9724588, 7462800, 14223520, 3118393, 2983520 ####[address] [address] Platelet mean volume (Bld) [Entitic vol] 9.0 fL Normal 6.4-10.8 [facility] Comment on above: Performed By: #### 2 564022, 0229452, 6255803, 48655855, 6896478, 0148842 ####[facility] [address] [place] [address] Platelets (Bld) [#/Vol] 226.0 E9/L Normal 150.0-500.0 [facility] Comment on above: Performed By: #### 2 587138, 6618428, 9635623, 23595480, [id number], [id number] ####[facility] [address] [place] [address] RBC (Bld) [#/Vol] 4.8 E12/L Normal 4.3-5.9 [facility] Comment on above: Performed By: #### 2 [id number], [id number], [id number], [id number], [id number], [id number] ####[facility] [address] [place] [address] WBC corrected for nucl RBC Auto (Bld) [#/Vol] 7.0 E9/L Normal 4.0-11.0 [facility] Comment on above: Performed By: #### 2 [id number], [id number], [id number], [id number], 8856418, 5637530 ####[facility] [address] [place] [address] CHEMISTRYOrdered By: SYSTEM SYSTEM on 04-27-2022 Anion gap [Moles/Vol] 15 mmol/L Normal 6 - 16 mEq/L F [facility] Calcium [Mass/Vol] 9.4 mg/dL Normal 8.9 - 11. 1 mg/dL [facility] Chloride [Moles/Vol] 104 mmol/L Normal 101 - 1 11 mmol/L [facility] Cholesterol [Mass/Vol] 193 mg/dL Normal 120 - 200 mg/dL [facility] Cholesterol in HDL [Mass/Vol] 58 mg/dL Invalid Interpretation Code [facility] Cholesterol in LDL [Mass/Vol] 128 mg/dL Normal <=129mg/dL [facility] Cholesterol in VLDL [Mass/Vol] 5 mg/dL Low 7 - 40 mg/dL [facility] Remisol CO2 [Moles/Vol] 23 mmol/L Normal 21 - 31 mmol/L [facility] Creatinine [Mass/Vol] 0.8 mg/dL Normal 0.5 - 1.3 mg/dL [facility] GFR/1.73 sq M.predicted among blacks MDRD (S/P/Bld) [Vol rate/Area] mL/min/1.73 m2 Normal >=59mL/min/1 .73 m2 FT Chem S GFR/1.73 sq M.predicted among non-blacks MDRD (S/P/Bld) [Vol rate/Area] mL/min/1.73 m2 Normal >=59mL/min/1 .73 m2 FT Chem S Glucose [Mass/Vol] 89 mg/dL Normal 55 - 199 mg/dL [facility] Remisol Potassium [Moles/Vol] 4.4 mmol/L Normal 3.5 - 5.3 mmol/L [facility] Sodium [Moles/Vol] 138 mmol/L Normal 135 - 145 mmol/L [facility] Triglyceride [Mass/Vol] 27 mg/dL Normal <=149mg/dL [facility] TSH Qn 2.17 m[IU]/L Normal 0.34 - 5.60 mcIU/mL [facility] Urea nitrogen [Mass/Vol] 22 mg/dL High 5 - 21 mg/dL [facility] Urea nitrogen/Creatinine [Mass ratio] 28 mg/mg High 10 - 20 [facility] Consent for Treatmenton 04-08 Consent for Treatment [id number] 0CD:127 Normal [facility] HEMATOLOGYOrdered By: SYSTEM SYSTEM on 04-27-2022 Basophils/100 WBC (Bld) 0.9 % Normal 0.0 - 2.0 % [facility] HemeAutoSS Basophils/Leukocytes Auto (Bld) [Pure # fraction] 0.1 E9/L Normal 0.0 - 0.2 E9/L [facility] HemeAutoSS Eosinophils/100 WBC (Bld) 2.7 % Normal 0.0 - 8.0 % [facility] HemeAutoSS Eosinophils/Leukocyte s Auto (Bld) [Pure # fraction] 0.2 E9/L Normal 0.0 - 0.5 E9/L [facility] HemeAutoSS Lymphocytes/100 WBC (Bld) 30.4 % Normal 14.0 - 50.0 % [facility] HemeAutoSS Lymphocytes/Leukocyte s Auto (Bld) [Pure # fraction] 2.1 E9/L Normal 1.0 - 4.0 E9/L [facility] HemeAutoSS Monocytes/100 WBC (Bld) 7.2 % Normal 4.0 - 14.0 % [facility] HemeAutoSS Monocytes/Leukocytes Auto (Bld) [Pure # fraction] 0.5 E9/L Normal 0.2 - 1.0 E9/L [facility] HemeAutoSS Neutrophils/100 WBC (Bld) 58.8 % Normal 36.0 - 75.0 % [facility] HemeAutoSS Neutrophils/Leukocyte s Auto (Bld) [Pure # fraction] 4.1 E9/L Normal 2.0 - 7.5 E9/L [facility] HemeAutoSS HEMATOLOGYOrdered By: Marielos Boston on 04-27-2022 Erythrocyte distribution width (RBC) [Ratio] 13.8 % Normal 10.9 - 14.2 % [facility] HemeAutoSS Hematocrit (Bld) [Volume fraction] 41.8 % Normal 34.0 - 46.0 % [facility] HemeAutoSS Hemoglobin (Bld) [Mass/Vol] 14.2 g/dL Normal 12.0 - 16.0 gm/dL [facility] HemeAutoSS MCH (RBC) [Entitic mass] 29.4 pg Normal 27.0 - 34.0 pg [facility] HemeAutoSS MCHC (RBC) [Mass/Vol] 34.0 g/dL Normal 31.4 - 36.0 gm/dL [facility] HemeAutoSS MCV (RBC) [Entitic vol] 86.5 fL Normal 80.0 - 100.0 fL [facility] HemeAutoSS Platelet mean volume (Bld) [Entitic vol] 9.0 fL Normal 6.4 - 10.8 fL [facility] HemeAutoSS Platelets (Bld) [#/Vol] 226.0 E9/L Normal 150.0 - 500.0 E9/L [facility] HemeAutoSS RBC (Bld) [#/Vol] 4.8 E12/L Normal 4.3 - 5.9 E12/L [facility] HemeAutoSS WBC corrected for nucl RBC Auto (Bld) [#/Vol] 7.0 E9/L Normal 4.0 - 11.0 E9/L [facility] [facility] Lipid Panelon 04-27-2022 Cholesterol [Mass/Vol] 193 mg/dL Normal 120-200 [facility] Comment on above: Performed By: #### 2 [id number], [id number], 1268311, 06551512, 5909124, 6550998 ####[facility] [address] [place] [address] Cholesterol in HDL [Mass/Vol] 58 mg/dL Invalid Interpretation Code [facility] Comment on above: Result Comment: HDL > or equal to 60 mg/dL: Low cardiovascular riskHDL < 40 mg/dL : High cardiovascular risk Performed By: #### 2 [id number], 1091465, 9603014, [id number], 1508668, 7826599 ####[facility] [address] [place] [address] Cholesterol in LDL [Mass/Vol] 128 mg/dL Normal <=129 [facility] Comment on above: Performed By: #### 2 258471, 5524042, 6697635, 25374757, 2771262, 5045227 ####[facility] [address] [place] [address] Cholesterol in VLDL [Mass/Vol] 5 mg/dL Low 7-40 [facility] Comment on above: Performed By: #### 2 844219, 8015873, 0266112, 73816976, 2378175, 6766792 ####[facility] [address] [place] [address] Triglyceride [Mass/Vol] 27 mg/dL Normal <=149 [facility] Comment on above: Performed By: #### 2 584342, 2990908, 7142411, 33945629, 7855562, 6659967 ####[facility] [address] [place] [address] TSHon 04-27-2022 TSH Qn 2.17 m[IU]/L Normal 0.34-5.60 [facility] Comment on above: Performed By: #### 2 811311, 7789773, 4727225, 02881338, 5954170, 2550602 ####[facility] [address] [place] [address] eGFRon 04-27-2022 GFR/1.73 sq M.predicted among blacks MDRD (S/P/Bld) [Vol rate/Area] mL/min/{1.73_m2} Normal >=59 [facility] Comment on above: Order Comment: Order added by Discern Expert. Result Comment: eGFR is race adjusted. AA=. Performed By: #### 2 548877, 1677757, 9553984, 61445990, 0401045, 7332729 ####[facility] [address] [place] [address] GFR/1.73 sq M.predicted among non-blacks MDRD (S/P/Bld) [Vol rate/Area] mL/min/{1.73_m2} Normal >=59 [facility] Comment on above: Order Comment: Order added by Discern Expert. Result Comment: [employer] Android Developer lina kidney disease could be indicated at eGFR's of less than 60 mL/min/1.73m2. Kidney failure is indicated at less than 15 mL/min/1.73m2. Performed By: #### 2 839162, 2727090, 8988778, 58602040, 3938485, 9395546 ####[facility] [address] [place] [address] Ambulatory Visit Summaryon 0 04-20-2022 Ambulatory Visit Summary Normal [facility] US PELVIS AND TRANSVAGon US PELVIS AND TRANSVAG EXAMINATION: US PELVIS AND TRANSVAG HISTORY: Pelvic and perineal pain COMPARISON: 01/20/2022 FINDINGS: The uterus is normal in size, contour and myometrial echotexture measuring 6.6 x 3.2 x 4.7 cm, anteverted. No focal myometrial mass. The endometrium measures 1.8 mm, normal. The right ovary is normal in size, contour and echotexture measuring 2.6 x 2.0 cm. Normal color and Doppler flow. The left ovary is normal in size, contour and echotexture measuring 1.8 x 2.5 x 1.8 cm. Normal color and Doppler flow No free fluid IMPRESSION: No acute abnormality Electronically authenticated by: BONNIE MORGAN Date: 2022-04-14 18:23 Normal [facility] Pap IG, rfx Aptima HPV, rfx 16/18,45on 03-31-2022 . . Normal [facility] Comment on above: Result Comment: Perf ormed at: WB Performed By: #### P APHR2A #### [facility] [address] [address] [address] Dariel Silverman DIAGNOSIS: Comment Normal [facility] Comment on above: Result Comment: NEGA TIVE FOR INTRAEPITHELIAL LESION OR MALIGNANCY. Performed at: WB Performed By: #### P APHR2A #### [facility] [address] [place] [address] Dr. Dariel Silverman HPV Aptima Negative Normal Negative [facility] Comment on above: Result Comment: This nucleic acid amplification test detects fourteen high-risk HPV types (16,18,31,33,35,39,45,51,52,56,58,59,66,68) without differentiation. Performed at: =G Performed By: #### P APHR2A #### [facility] [address] [address] [address] Dariel Silveramn HPV Genotype Reflex Comment Normal [facility] Comment on above: Result Comment: Crit eria not met, HPV Genotype not performed. Performed at: WB Performed By: #### P APHR2A #### [facility] [address] [address] [address] Dariel Silverman Methodology: Comment Normal [facility] Comment on above: Result Comment: This liquid based ThinPrep(R) pap test was screened with the use of an image guided system. Performed at: WB Performed By: #### P APHR2A #### [facility] [address] [place] [address] Dr. Dariel Silverman Note: Comment Normal [facility] Comment on above: Result Comment: The Pap smear is a screening test designed to aid in the detection of premalignant and malignant conditions of the uterine cervix. It is not a diagnostic procedure and should not be used as the sole means of detecting cervical cancer. Both false-positive and false-negative reports do occur. . Performed at: WB Performed By: #### P APHR2A #### [facility] [address] [address] [address] Dariel Silverman Performed by: Comment Normal [facility] Comment on above: Result Comment: Urszula Chapman, Supervisory [employer] (ASCP) Performed at: WB Performed By: #### P APHR2A #### [facility] [address] [place], [place] [address] Dr. Dariel Silverman Specimen adequacy: Comment Normal [facility] Comment on above: Result Comment: Sati sfactory for evaluation. Endocervical and/or squamous metaplastic cells (endocervical component) are present. Performed at: WB Performed By: #### P APHR2A #### [facility] [address] [address] [address] Dariel Silverman Coding Summary.on 03-09-2022 Coding Summary. Normal [facility] Discharge Instructionson Discharge Instructions [id number]. 00CD:127 Normal [facility] ED Clinical Summaryon 2021 ED Clinical Summary Normal [facility] ED Note-Nursingon 03-05-2022 ED Note-Nursing pt given d/c instructions and educated on importance of follow up. pt verbalized understanding of instructions and readiness for d/c. pt walked self ambulatory to waiting room in stable condition. Normal [facility] ED Note-Nursing Normal [facility] ED Note-Physicianon 03-05-20 ED Note-Physician Normal [facility] Comment on above: Result Comment: Elec tronically Signed By: Shannen Ceja PA-C\.br\Date and Time Signed: 03/05/22 00:13 EST\.br\Electronically Co-Signed By: Quintin Murcia DO.br\Date and Time Co-Signed: 03/05/22 02:32 EST ED Patient Education Noteon 03-05-2022 ED Patient Education Note Normal [facility] ED Patient Summaryon 022 ED Patient Summary Normal [facility] Rapid COVID Antigen ([facility])on 03-05-2022 Rapid COV Int NEG Ctl Pass Normal [facility] Comment on above: Performed By: #### 2 [id number], [id number] ####[facility] [address] [place] [address] Rapid COV Int POS Ctl Pass Normal [facility] Comment on above: Performed By: #### 2 [id number], [id number] ####[facility] [address] [place] [address] SARS-CoV+SARS-CoV-2 (COVID-19) Ag IA.rapid Ql (Resp) Not detected Normal Not Detected [facility] Comment on above: Result Comment: The [employer]? System for Rapid Detection of SARS-CoV-2 is a chromatographic digital immunoassay intended for the direct and qualitative detection of SARS-CoV-2 nucleocapsid antigens in nasal swabs from individuals who are suspected of COVID-19 by their healthcare provider within the first five days of the onset of symptoms. Negative results should be treated as presumptive, do not rule out SARS-CoV-2 infection and should not be used as the sole basis for treatment or patient management decisions, including infection control decisions. Negative results should be considered in the context of a patient?s recent exposures, history and the presence of clinical signs and symptoms consistent with COVID-19, and confirmed with a molecular assay, if necessary, for patient management. For in vitro diagnostic use. In the [place], only for use under an Emergency Use Authorization. In the [place], this test has not been FDA cleared or approved; this test has been authorized by FDA under an EUA for use by authorized laboratories; use by laboratories certified under the CLIA, 42 U.S.C. ?263a, that meet requirements to perform moderate, high, or waived complexity tests and at the Point of Care (POC), i.e., in patient care settings operating under a CLIA Certificate of Waiver, Certificate of Compliance, or Certificate of Accreditation.This test has been authorized only for the detection of proteins from SARS-CoV-2, not for any other viruses or pathogens; and, in the [place], this test is only authorized for the duration of the declaration that circumstances exist justifying the authorization of emergency use of in vitro diagnostics for detection and/or diagnosis of the virus that causes COVID-19 under Section 564(b)(1) of the Act, 21 U.S.C. ? 360bbb-3(b)(1), unless the authorization is terminated or revoked sooner. Performed By: #### 2 [id number], [id number] ####[place] [address] ADMITTED TO INTENSIVE CARE UNIT FOR CONDITION OF INTEREST:FIND:PT: NO Normal [facility] Comment on above: Performed By: #### 2 [id number], [id number] ####[place] [address] EMPLOYED IN A HEALTHCARE SETTING:FIND:PT: NO Normal [facility] Comment on above: Performed By: #### 2 [id number], [id number] ####[place] [address] FIRST TEST FOR CONDITION OF INTEREST:FIND:PT: Unknown Normal [facility] Comment on above: Performed By: #### 2 [id number], [id number] ####[place] [address] HAS SYMPTOMS RELATED TO CONDITION OF INTEREST:FIND:PT: YES Normal [facility] Comment on above: Performed By: #### 2 [id number], [id number] ####[place] [address] HOSPITALIZED FOR CONDITION OF INTEREST:FIND:PT: NO Normal [facility] Comment on above: Performed By: #### 2 [id number], [id number] ####[place] [address] STATUS:FIND:PT: NO Normal [facility] Comment on above: Performed By: #### 2 [id number], [id number] ####[place] [address] RESIDES IN A CONGREGATE CARE SETTING:FIND:PT: NO Normal [facility] Comment on above: Performed By: #### 2 [id number], [id number] ####[facility] [address] [place] [address] Resp.syn.virus (Rsv)on 03-05 RSV Ag IA.rapid Ql (Nph) Negative Normal Negative [facility] Comment on above: Performed By: #### 2 [id number], [id number] ####[facility] [address] [place] [address] Consent for Treatmenton 02-05 Consent for Treatment [id number] 0CD:127 Normal [facility] MICRO OTHER TESTSOrdered By: Makeda Thomas on 03-04-2022 Rapid COV Int NEG Ctl Pass (03/04/22 10:47 PM) Normal [facility] [place] Rapid COV Int POS Ctl Pass (03/04/22 10:47 PM) Normal [facility] [place] [facility] RSV Ag IA.rapid Ql (Nph) Negative (03/04/22 10:47 PM) Normal Negative [facility] [place] [facility] SARS-CoV+SARS-CoV-2 (COVID-19) Ag IA.rapid Ql (Resp) Not Detected (03/04/22 10:47 PM) Normal Not Detected [facility] [place] [facility] US PELVIS AND TRANSVAGon US PELVIS AND TRANSVAG EXAMINATION: US PELVIS AND TRANSVAG HISTORY: Postcoital bleeding COMPARISON: No relevant comparison available. TECHNIQUE: Transabdominal and transvaginal sonographic examination. FINDINGS: UTERUS: Normal size and appearance. Uterus size: 6.7 x 3.9 x 3.2 cm ENDOMETRIUM: Normal homogeneous appearance. Endometrial thickness: 4 mm RIGHT OVARY: Normal size and appearance. Duplex Doppler demonstrates normal waveform and flow; resistive index 0.4. Ovary size: 3.6 x 2.1 x 1.6 cm LEFT OVARY: Normal size and appearance. Duplex Doppler demonstrates normal waveform and flow; resistive index 0.5. Ovary size: 2.6 x 1.6 x 1.7 cm CUL-DE-SAC: Unremarkable. No significant free fluid. BLADDER: Unremarkable. OTHER: None. IMPRESSION: 1. Normal pelvic ultrasound. Electronically authenticated by: EVELYN WHITEHEAD Date: 2022-01-21 06:36 Normal [facility] CHLAMYDIA/GONOCOCCUS ARMEN (SW AB/URINE/PAPon 01-17-2022 Chlamydia trachomatis, ARMEN Negative Normal Negative [facility] Comment on above: Performed By: #### U MICRO, UACSIND #### [facility] [address] [place] [address] Dr. Dariel Silverman Neisseria gonorrhoeae, ARMEN Negative Normal Negative [facility] Comment on above: Performed By: #### U MICRO, UACSIND #### [facility] [address] [place] [address] Dr. Dariel Silverman VAGINITIS/VAGINOSIS DNA PROB Brandt 01-15-2022 Olya species Negative Normal Negative [facility] Comment on above: Performed By: #### V AGINT #### [facility] [address] [place] [address] Dr. Dariel Silverman Gardnerella vaginalis Negative Normal Negative [facility] Comment on above: Performed By: #### V AGINT #### [facility] [address] [place] [address] Dr. Dariel Silverman Trichomonas vaginalis Negative Normal Negative [facility] Comment on above: Performed By: #### V AGINT #### [facility] [address] [place] [address] Dr. Dariel Silverman VAGINITIS/VAGINOSIS DNA PROB Brandt 10-24-2021 Olya species Negative Normal Negative [facility] Comment on above: Performed By: #### U MICRO, UACSIND #### [facility] [address] [place] [address] Dr. Dariel Silverman Gardnerella vaginalis Negative Normal Negative [facility] Comment on above: Performed By: #### U MICRO, UACSIND #### [facility] [address] [place] [address] Dr. Dariel Silverman Trichomonas vaginalis Negative Normal Negative [facility] Comment on above: Performed By: #### U MICRO, UACSIND #### [facility] [address] [place] [address] Dr. Dariel Silverman ANTIBODY ID PANELon 08-19-19 ANTIBODY ID PANEL Antibody ID Anti-D Blood Bank Notes likely due to rhogam given on 06/03/21 Normal [facility] Comment on above: Performed By: #### A BID #### [facility] [address] [place] [address] Dr. Dariel Silverman CBC AUTO DIFFon 08-15-2021 BASO # 0.1 103/ul Normal 0.0-0.1 [facility] Comment on above: Performed By: #### U MICRO, UACSIND #### [facility] [address] [place] [address] Dr. Dariel Silverman Basophils/100 WBC (Bld) 0.4 % Normal 0.2-2.0 [facility] Comment on above: Performed By: #### U MICRO, UACSIND #### [facility] [address] [place] [address] Dr. Dariel Silverman EO # 0.2 103/ul Normal 0.0-0.7 [facility] Comment on above: Performed By: #### U MICRO, UACSIND #### [facility] [address] [place] [address] Dr. Dariel Silverman Eosinophils/100 WBC (Bld) 1.7 % Normal 0.9-7.0 [facility] Comment on above: Performed By: #### U MICRO, UACSIND #### [facility] [address] [place] [address] Dr. Dariel Silverman Erythrocyte distribution width (RBC) [Ratio] 13.1 % Normal 11.0-15.0 [facility] Comment on above: Performed By: #### U MICRO, UACSIND #### [facility] [address] [place] [address] Dr. Dariel Silverman Hematocrit (Bld) [Volume fraction] 31.6 % Critically low 36.0-48.0 [facility] Comment on above: Performed By: #### U MICRO, UACSIND #### [facility] [address] [address] [address] Dariel Silverman Hemoglobin (Bld) [Mass/Vol] 9.9 g/dL Critically low 12.0-16.0 [facility] Comment on above: Performed By: #### U MICRO, UACSIND #### [facility] [address] [address] [address] Dariel Silverman IG # 0.09 10e3/ul Critically high 0.00-0.03 [facility] Comment on above: Performed By: #### U MICRO, UACSIND #### [facility] [address] [address] [address] Dariel Silverman IG % 0.7 % Critically high 0.0-0.5 [facility] Comment on above: Performed By: #### U MICRO, UACSIND #### [facility] [address] [place] [address] Dr. Dariel Silverman LYMPH # 3.2 103/ul Normal 1.2-3.8 [facility] Comment on above: Performed By: #### U MICRO, UACSIND #### [facility] [address] [address] [address] Dariel Silverman Lymphocytes/100 WBC (Bld) 25.1 % Normal 20.5-60.0 [facility] Comment on above: Performed By: #### U MICRO, UACSIND #### [facility] [address] [place] [address] Dr. Dariel Silverman MANUAL DIFF REQ NO Normal [facility] Comment on above: Performed By: #### U MICRO, UACSIND #### [facility] [address] [address] [address] Dariel Silverman MCH (RBC) [Entitic mass] 25.5 pg Critically low 26.7-34.0 [facility] Comment on above: Performed By: #### U MICRO, UACSIND #### [facility] [address] [place] [address] Dr. Dariel Silverman MCHC (RBC) [Mass/Vol] 31.3 g/dL Normal 29.9-35.2 [facility] Comment on above: Performed By: #### U MICRO, UACSIND #### [facility] [address] [address] [address] Dariel Silverman MCV (RBC) [Entitic vol] 81.4 fL Normal 81.0-99.0 [facility] Comment on above: Performed By: #### U MICRO, UACSIND #### [facility] [address] [address] [address] Dariel Silverman MONO # 1.0 103/ul Critically high 0.3-0.8 [facility] Comment on above: Performed By: #### U MICRO, UACSIND #### [facility] [address] [address] [address] Dariel Silverman Monocytes/100 WBC (Bld) 7.8 % Normal 1.7-12.0 [facility] Comment on above: Performed By: #### U MICRO, UACSIND #### [facility] [address] [place] [address] Dr. Dariel Silverman NEUT # 8.1 103/ul Critically high 1.4-6.5 [facility] Comment on above: Performed By: #### U MICRO, UACSIND #### [facility] [address] [place] [address] Dr. Dariel Silverman Neutrophils/100 WBC (Bld) 64.3 % Normal 43.0-75.0 [facility] Comment on above: Performed By: #### U MICRO, UACSIND #### [facility] [address] [place] [address] Dr. Dariel Silverman Platelet mean volume (Bld) [Entitic vol] 10.3 fL Normal 9.5-13.5 [facility] Comment on above: Performed By: #### U MICRO, UACSIND #### [facility] [address] [place] [address] Dr. Dariel Silevrman PLT 220 103/ul Normal 150-450 [facility] Comment on above: Performed By: #### U MICRO, UACSIND #### [facility] [address] [place] [address] Dr. Dariel Silverman RBC 3.88 106/ul Critically low 4.20-5.40 [facility] Comment on above: Performed By: #### U MICRO, UACSIND #### [facility] [address] [address] [address] Dariel Silverman WBC 12.6 103/ul Critically high 4.0-11.[address] [facility] Comment on above: Performed By: #### U MICRO, UACSIND #### [facility] [address] [address] [address] Dariel Silverman CBC AUTO DIFFon 08-14-2021 BASO # 0.0 103/ul Normal 0.0-0.1 [facility] [facility] Comment on above: Performed By: #### U MICRO, UACSIND #### [facility] [address] [place] [address] Dr. Dariel Silverman Basophils/100 WBC (Bld) 0.3 % Normal 0.2-2.0 [facility] Comment on above: Performed By: #### U MICRO, UACSIND #### [facility] [address] [place] [address] Dr. Dariel Silverman EO # 0.1 103/ul Normal 0.0-0.7 [facility] Comment on above: Performed By: #### U MICRO, UACSIND #### [facility] [address] [place] [address] Dr. Dariel Silverman Eosinophils/100 WBC (Bld) 0.9 % Normal 0.9-7.0 [facility] Comment on above: Performed By: #### U MICRO, UACSIND #### [facility] [address] [place] [address] Dr. Dariel Silverman Erythrocyte distribution width (RBC) [Ratio] 13.0 % Normal 11.0-15.0 [facility] Comment on above: Performed By: #### U MICRO, UACSIND #### [facility] [address] [place] [address] Dr. Dariel Silverman Hematocrit (Bld) [Volume fraction] 30.9 % Critically low 36.0-48.0 [facility] Comment on above: Performed By: #### U MICRO, UACSIND #### [facility] [address] [address] [address] Dariel Silverman Hemoglobin (Bld) [Mass/Vol] 10.3 g/dL Critically low 12.0-16.0 [facility] Comment on above: Performed By: #### U MICRO, UACSIND #### [facility] [address] [address] [address] Dariel Silverman IG # 0.06 10e3/ul Critically high 0.00-0.03 [facility] Comment on above: Performed By: #### U MICRO, UACSIND #### [facility] [address] [address] [address] Dariel Silverman IG % 0.6 % Critically high 0.0-0.5 [facility] Comment on above: Performed By: #### U MICRO, UACSIND #### [facility] [address] [address] [address] Dariel Silverman LYMPH # 2.4 103/ul Normal 1.2-3.8 [facility] Comment on above: Performed By: #### U MICRO, UACSIND #### [facility] [address] [address] [address] Dariel Silverman Lymphocytes/100 WBC (Bld) 22.7 % Normal 20.5-60.0 [facility] Comment on above: Performed By: #### U MICRO, UACSIND #### [facility] [address] [address] [address] Dariel Silverman MANUAL DIFF REQ NO Normal [facility] Comment on above: Performed By: #### U MICRO, UACSIND #### [facility] [address] [address] [address] Dariel Silverman MCH (RBC) [Entitic mass] 26.0 pg Critically low 26.7-34.0 [facility] Comment on above: Performed By: #### U MICRO, UACSIND #### [facility] [address] [address] [address] Dariel Silverman MCHC (RBC) [Mass/Vol] 33.3 g/dL Normal 29.9-35.2 [facility] Comment on above: Performed By: #### U MICRO, UACSIND #### [facility] [address] [place] [address] Dr. Dariel Silverman MCV (RBC) [Entitic vol] 78.0 fL Critically low 81.0-99.0 [facility] Comment on above: Performed By: #### U MICRO, UACSIND #### [facility] [address] [place] [address] Dr. Dariel Silverman MONO # 0.8 103/ul Normal 0.3-0.8 [facility] Comment on above: Performed By: #### U MICRO, UACSIND #### [facility] [address] [place] [address] Dr. Dariel Silverman Monocytes/100 WBC (Bld) 7.9 % Normal 1.7-12.0 [facility] Comment on above: Performed By: #### U MICRO, UACSIND #### [facility] [address] [place] [address] Dr. Dariel Silverman NEUT # 7.2 103/ul Critically high 1.4-6.5 [facility] Comment on above: Performed By: #### U MICRO, UACSIND #### [facility] [address] [place] [address] Dr. Dariel Silverman Neutrophils/100 WBC (Bld) 67.6 % Normal 43.0-75.0 [facility] Comment on above: Performed By: #### U MICRO, UACSIND #### [facility] [address] [place] [address] Dr. Dariel Silverman Platelet mean volume (Bld) [Entitic vol] 10.5 fL Normal 9.5-13.5 [facility] Comment on above: Performed By: #### U MICRO, UACSIND #### [facility] [address] [place] [address] Dr. Dariel Silverman PLT 261 103/ul Normal 150-450 [facility] Comment on above: Performed By: #### U MICRO, UACSIND #### [facility] [address] [address] [address] Dariel Silverman RBC 3.96 106/ul Critically low 4.20-5.40 [facility] Comment on above: Performed By: #### U MICRO, UACSIND #### [facility] [address] [address] [address] Dariel Silverman WBC 10.6 103/ul Normal 4.0-11.0 [facility] Comment on above: Performed By: #### U MICRO, UACSIND #### [facility] [address] [address] [address] Dariel Silverman Covid-19 PCR ([facility])on 08-05 SARS-CoV-2 (COVID-19) RNA ARMEN+probe Ql (Unsp spec) Not detected Normal NOT DETECTED [facility] Comment on above: Result Comment: When diagnostic testing is negative, the possibility of a false negative should be considered in the context of a patient's recent exposures and the presence of clinical signs and symptoms consistent with SARS-CoV-2. This test is not yet approved or cleared by the [place] FDA. When there are no FDA-approved or cleared tests available, and other criteria are met, FDA can make tests available under an emergency access mechanism called an Emergency Use Authorization (EUA). The EUA for this test is supported by the [employer] of Health and Human Service's declaration that circumstances exist to justify the emergency use of in vitro diagnostics for the detection and/or diagnosis of the virus that causes COVID-19. This EUA will remain in effect for the duration of the COVID-19 declaration justifying emergency of IVDs, unless it is terminated or revoked by the FDA (after which the test may no longer be used). Performed By: #### U MICRO, UACSIND #### [facility] [address] [address] [address] Dariel Silverman DIRECT COOMBSon 08-14-2021 DIRECT [place] Direct [place] Negati ve Blood Bank Notes test performed by sherlyn Bergman [facility] Comment on above: Performed By: #### D IRCMB #### [facility] [address] [address] [address] Dariel Silverman DRUG SCREEN RAPID (URINE)on 08-14-2021 AMP Negative Normal NEGATIVE [facility] Comment on above: Performed By: #### U MICRO, UACSIND #### [facility] [address] [place] [address] Dr. Dariel Silverman BAR Negative Normal NEGATIVE [facility] Comment on above: Performed By: #### U MICRO, UACSIND #### [facility] [address] [address] [address] Dariel Silverman BUP Negative Normal NEGATIVE [facility] Comment on above: Performed By: #### U MICRO, UACSIND #### [facility] [address] [address] [address] Dariel Silverman BZO Negative Normal NEGATIVE [facility] Comment on above: Performed By: #### U MICRO, UACSIND #### [facility] [address] [place] [address] Dr. Dariel Silverman FLORA Negative Normal NEGATIVE [facility] Comment on above: Performed By: #### U MICRO, UACSIND #### [facility] [address] [place] [address] Dr. Dariel Silverman CUT-OFFS SEE BELOW Normal [facility] Comment on above: Result Comment: AMP (Amphetamine): 500ng/mL, BAR (Barbituates): 200 ng/mL, BZO (Benzodiazepines): 150 ng/mL, BUP (Buprenorphine): 10 ng/mL, FLORA (Cocaine): 150 ng/mL, mAMP (Methamphetamine): 500 ng/mL, MTD (Methadone): 200 ng/mL, OPI (Opiates): 100 ng/mL, OXY (Oxycodone): 100 ng/mL, PCP (Phencyclidine): 25 ng/mL, PPX (Propoxyphene): 300 ng/mL, THC (Cannabinoids): 50 ng/mL, TCA (Trycyclic Antidepressants): 300 ng/mL Performed By: #### U MICRO, UACSIND #### [facility] [address] [place] [address] Dr. Dariel Silverman DRUG CUT HEADER DRUG CLASS TEST SYST EM CUT-OFF CONCENTRATIONS ARE FOLLOWS: Normal [facility] Comment on above: Performed By: #### U MICRO, UACSIND #### [facility] [address] [address] [address] Dariel Silverman mAMP Negative Normal NEGATIVE [facility] Comment on above: Performed By: #### U MICRO, UACSIND #### [facility] [address] [address] [address] Dariel Silverman MTD Negative Normal NEGATIVE [facility] Comment on above: Performed By: #### U MICRO, UACSIND #### [facility] [address] [address] [address] Dariel Silverman OPI Negative Normal NEGATIVE [facility] Comment on above: Performed By: #### U MICRO, UACSIND #### [facility] [address] [address] [address] Dariel Silverman OXY Negative Normal NEGATIVE [facility] Comment on above: Performed By: #### U MICRO, UACSIND #### [facility] [address] [address] [address] Dariel Silverman PCP Negative Normal NEGATIVE [facility] Comment on above: Performed By: #### U MICRO, UACSIND #### [facility] [address] [address] [address] Dariel Silverman PPX Negative Normal NEGATIVE [facility] Comment on above: Performed By: #### U MICRO, UACSIND #### [facility] [address] [address] [address] Dariel Silverman TCA Negative Normal NEGATIVE [facility] Comment on above: Performed By: #### U MICRO, UACSIND #### [facility] [address] [address] [address] Dariel Silverman THC Negative Normal NEGATIVE [facility] Comment on above: Performed By: #### U MICRO, UACSIND #### [facility] [address] [address] [address] Dariel Silverman TYPE AND SCREENon 08-14-2021 TYPE AND SCREEN Negative Normal [facility] Comment on above: Performed By: #### U MICRO, UACSIND #### [facility] [address] [address] [address] Dariel Silverman CULTURE URINEon 08-09-2021 CULTURE URINE Culture Observations : LIGHT GROWTH OF MIXED GENITAL SURJIT. NO POTENTIAL PATHOGENS SEEN. Normal [facility] Comment on above: Performed By: #### U RCX #### [facility] [address] [place] [address] Dr. Dariel Silverman UA (CLEAN/CATCH) CHRONIC DISEASE EPIDEMIOLOGIST/MICRO I F IND.on 08-09-2021 Bilirubin Ql (U) Negative Normal NEGATIVE [facility] Comment on above: Performed By: #### U MICRO, UACSIND #### [facility] [address] [place] [address] Dr. Dariel Silverman Clarity (U) CLEAR Normal CLEAR [facility] Comment on above: Performed By: #### U MICRO, UACSIND #### [facility] [address] [place] [address] Dr. Dariel Silverman Color (U) LT. YELLOW Normal YELLOW [facility] Comment on above: Performed By: #### U MICRO, UACSIND #### [facility] [address] [place] [address] Dr. Dariel Silverman Glucose Ql (U) Negative Normal NEGATIVE [facility] Comment on above: Performed By: #### U MICRO, UACSIND #### [facility] [address] [place] [address] Dr. Dariel Silverman Hemoglobin Ql (U) Negative Normal NEGATIVE [facility] Comment on above: Performed By: #### U MICRO, UACSIND #### [facility] [address] [place] [address] Dr. Dariel Silverman Ketones Ql (U) Negative Normal NEGATIVE The [facility] Comment on above: Performed By: #### U MICRO, UACSIND #### [facility] [address] [address] [address] Dariel Silverman LEUKOCYTES SMALL Abnormal NEGATIVE [facility] Comment on above: Performed By: #### U MICRO, UACSIND #### [facility] [address] [place] [address] Dr. Dariel Silverman Nitrite Ql (U) Negative Normal NEGATIVE The [facility] Comment on above: Performed By: #### U MICRO, UACSIND #### [facility] [address] [place] [address] Dr. Dariel Silverman pH (U) 8.5 [pH] Normal 5-9 [facility] Comment on above: Performed By: #### U MICRO, UACSIND #### [facility] [address] [place] [address] Dr. Dariel Silverman SPEC GRAVITY 1.015 Normal 1.005-<=1.02 5 [facility] Comment on above: Performed By: #### U MICRO, UACSIND #### [facility] [address] [place] [address] Dr. Dariel Silverman UA PROTEIN Negative Normal NEGATIVE/ TRACE [facility] Comment on above: Performed By: #### U MICRO, UACSIND #### [facility] [address] [place] [address] Dr. Dariel Silverman UR MICRO IND INDICATED Normal [facility] Comment on above: Performed By: #### U MICRO, UACSIND #### [facility] [address] [place] [address] Dr. Dariel Silverman Urobilinogen Qn (U) 0.2 {Ladonna'U}/dL Normal 0.2 - 1. 0 [facility] Comment on above: Performed By: #### U MICRO, UACSIND #### [facility] [address] [place] [address] Dr. Dariel Silverman URINE MICROSCOPIC ONLYon BACTERIA TRACE Abnormal NONE SEEN [facility] Comment on above: Performed By: #### U MICRO, UACSIND #### [facility] [address] [place] [address] Dr. Dariel Silverman Bacteria identified Cx Nom (U) INDICATED Normal [facility] Comment on above: Performed By: #### U MICRO, UACSIND #### [facility] [address] [place] [address] Dr. Dariel Silverman CAST NONE SEEN Normal NONE SEEN [facility] Comment on above: Performed By: #### U MICRO, UACSIND #### [facility] [address] [place] [address] Dr. Dariel Silverman Crystals LM Nom (Urine sed) NONE SEEN Normal NONE SEEN [facility] Comment on above: Performed By: #### U MICRO, UACSIND #### [facility] [address] [address] [address] Dariel Silverman Epithelial cells LM Ql (Urine sed) MODERATE Abnormal NONE SEEN /RARE [facility] Comment on above: Performed By: #### U MICRO, UACSIND #### [facility] [address] [address] [address] Dariel Silverman MUCOUS NONE SEEN Normal NONE SEEN [facility] Comment on above: Performed By: #### U MICRO, UACSIND #### [facility] [address] [place] [address] Dr. Dariel Silverman RBC 0-2 Normal 0-2 [facility] Comment on above: Performed By: #### U MICRO, UACSIND #### [facility] [address] [address] [address] Dariel Silverman WBC 2-5 Abnormal NONE SEEN [facility] Comment on above: Performed By: #### U MICRO, UACSIND #### [facility] [address] [address] [address] Dariel Silverman GROUP B STREP CULTUREon 07-06 S. agalactiae Ag Ql (Unsp spec) Culture Observations: Group B Strep called to [facility] Hollis/office 07/27/21 @[address] [place] [address] Isolate 1 Streptococcus agalactiae Light growth of ORGANISM 1 Streptococcus agalactiae ANTIBIOTIC M.I.C RX STATUS Benzylpenicillin <=0.06 S F Ampicillin <=0.25 S F Cefotaxime <=0.12 S F Ceftriaxone <=0.12 S F Levofloxacin 0.5 S F Erythromycin >=8 R F Clindamycin >=1 R F Linezolid <=2 S F Vancomycin 0.5 S F Tetracycline >=16 R F Normal [facility] Comment on above: Performed By: #### G BSCX #### [facility] [address] [address] [address] Dariel Silverman US PREG CERVICAL LENGTHon US PREG CERVICAL LENGTH EXAMINATION: US PREG CERVICAL LENGTH HISTORY: Pain in pelvis COMPARISON: No relevant comparison available. FINDINGS: The cervix measures 4.0 cm in length. The closed portion of the cervix measures 2.5 cm. 2 mm dilation of the endocervical canal over 1.5 cm. This does not appear to change with Valsalva. IMPRESSION: Cervix measures 4 cm in length, detailed above Electronically authenticated by: BONNIE MORGAN Date: 2021-06-29 07:06 Normal [facility] CULTURE URINEon 06-28-2021 CULTURE URINE Culture Observations : NO GROWTH. Normal [facility] Comment on above: Performed By: #### U RCX #### [facility] [address] [place] [address] Dr. Dariel Silverman UA (CLEAN/CATCH) CHRONIC DISEASE EPIDEMIOLOGIST/MICRO I F IND.on 06-28-2021 Bilirubin Ql (U) Negative Normal NEGATIVE The [facility] Comment on above: Performed By: #### U MICRO, UACSIND #### [facility] [address] [place] [address] Dr. Dariel Silverman Clarity (U) CLEAR Normal CLEAR [facility] Comment on above: Performed By: #### U MICRO, UACSIND #### [facility] [address] [place] [address] Dr. Dariel Silverman Color (U) LT. YELLOW Normal YELLOW [facility] Comment on above: Performed By: #### U MICRO, UACSIND #### [facility] [address] [place] [address] Dr. Dariel Silverman Glucose Ql (U) Negative Normal NEGATIVE The [facility] Comment on above: Performed By: #### U MICRO, UACSIND #### [facility] [address] [place] [address] Dr. Dariel Silverman Hemoglobin Ql (U) Negative Normal NEGATIVE [facility] Comment on above: Performed By: #### U MICRO, UACSIND #### [facility] [address] [place] [address] Dr. Dariel Silverman Ketones Ql (U) Negative Normal NEGATIVE The [facility] Comment on above: Performed By: #### U MICRO, UACSIND #### [facility] [address] [place] [address] Dr. Dariel Silverman LEUKOCYTES TRACE Abnormal NEGATIVE [facility] Comment on above: Performed By: #### U MICRO, UACSIND #### [facility] [address] [place] [address] Dr. Dariel Silverman Nitrite Ql (U) Negative Normal NEGATIVE The [facility] Comment on above: Performed By: #### U MICRO, UACSIND #### [facility] [address] [place] [address] Dr. Dariel Silverman pH (U) 6.0 [pH] Normal 5-9 [facility] Comment on above: Performed By: #### U MICRO, UACSIND #### [facility] [address] [place] [address] Dr. Dariel Silverman SPEC GRAVITY 1.010 Normal 1.005-<=1.02 5 [facility] Comment on above: Performed By: #### U MICRO, UACSIND #### [facility] [address] [place] [address] Dr. Dariel Silverman UA PROTEIN Negative Normal NEGATIVE/ TRACE [facility] Comment on above: Performed By: #### U MICRO, UACSIND #### [facility] [address] [place] [address] Dr. Dariel Silverman UR MICRO IND INDICATED Normal [facility] Comment on above: Performed By: #### U MICRO, UACSIND #### [facility] [address] [place] [address] Dr. Dariel Silverman Urobilinogen Qn (U) 0.2 {Ladonna'U}/dL Normal 0.2 - 1. 0 [facility] Comment on above: Performed By: #### U MICRO, UACSIND #### [facility] [address] [place] [address] Dr. Dariel Silverman URINE MICROSCOPIC ONLYon BACTERIA NONE SEEN Normal NONE SEEN [facility] Comment on above: Performed By: #### U MICRO, UACSIND #### [facility] [address] [place] [address] Dr. Dariel Silverman Bacteria identified Cx Nom (U) INDICATED Normal [facility] Comment on above: Performed By: #### U MICRO, UACSIND #### [facility] [address] [place] [address] Dr. Dariel Silverman CAST NONE SEEN Normal NONE SEEN [facility] Comment on above: Performed By: #### U MICRO, UACSIND #### [facility] [address] [place] [address] Dr. Dariel Silverman Crystals LM Nom (Urine sed) NONE SEEN Normal NONE SEEN [facility] Comment on above: Performed By: #### U MICRO, UACSIND #### [facility] [address] [place] [address] Dr. Dariel Silverman Epithelial cells LM Ql (Urine sed) FEW Abnormal NONE SEEN /RARE [facility] Comment on above: Performed By: #### U MICRO, UACSIND #### [facility] [address] [place] [address] Dr. Dariel Silverman MUCOUS NONE SEEN Normal NONE SEEN [facility] Comment on above: Performed By: #### U MICRO, UACSIND #### [facility] [address] [place] [address] Dr. Dariel Silverman RBC NONE SEEN Abnormal 0-2 [facility] Comment on above: Performed By: #### U MICRO, UACSIND #### [facility] [address] [place] [address] Dr. Dariel Silverman WBC 2-5 Abnormal NONE SEEN [facility] Comment on above: Performed By: #### U MICRO, UACSIND #### [facility] [address] [place] [address] Dr. Dariel Silverman RHOGAMon 06-03-2021 RHOGAM Status Information Issued Quantity 1 Product ID Rh Immune Globulin Lot Number [id number] Issue Date/Time [id number] Normal [facility] Comment on above: Performed By: #### R HOG #### [facility] [address] [place] [address] Dr. Dariel Silverman TYPE AND SCREENon 06-02-2021 TYPE AND SCREEN Negative Normal [facility] Comment on above: Performed By: #### U MICRO, UACSIND #### [facility] [address] [address] [address] Dariel Silverman CULTURE URINEon 05-28-2021 CULTURE URINE Culture Observations : LIGHT GROWTH OF MIXED GENITAL SURJIT. NO POTENTIAL PATHOGENS SEEN. Normal [facility] Comment on above: Performed By: #### U MICRO, UACSIND #### [facility] [address] [address] [address] Dariel Silverman UA (CLEAN/CATCH) CHRONIC DISEASE EPIDEMIOLOGIST/MICRO I F IND.on 05-28-2021 Bilirubin Ql (U) Negative Normal NEGATIVE [facility] Comment on above: Performed By: #### U MICRO, UACSIND #### [facility] [address] [place] [address] Dr. Dariel Silverman Clarity (U) SL CLOUDY Abnormal CLEAR [facility] Comment on above: Performed By: #### U MICRO, UACSIND #### [facility] [address] [place] [address] Dr. Dariel Silverman Color (U) YELLOW Normal YELLOW [facility] Comment on above: Performed By: #### U MICRO, UACSIND #### [facility] [address] [address] [address] Dariel Silverman Glucose Ql (U) Negative Normal NEGATIVE The [facility] Comment on above: Performed By: #### U MICRO, UACSIND #### [facility] [address] [place] [address] Dr. Dariel Silverman Hemoglobin Ql (U) Negative Normal NEGATIVE [facility] Comment on above: Performed By: #### U MICRO, UACSIND #### [facility] [address] [address] [address] Dariel Silverman Ketones Ql (U) TRACE Abnormal NEGATIVE The [facility] Comment on above: Performed By: #### U MICRO, UACSIND #### [facility] [address] [place] [address] Dr. Dariel Silverman LEUKOCYTES TRACE Abnormal NEGATIVE [facility] Comment on above: Performed By: #### U MICRO, UACSIND #### [facility] [address] [address] [address] Dariel Silverman Nitrite Ql (U) Negative Normal NEGATIVE [facility] Comment on above: Performed By: #### U MICRO, UACSIND #### [facility] [address] [address] [address] Dariel Silverman pH (U) 6.5 [pH] Normal 5-9 [facility] Comment on above: Performed By: #### U MICRO, UACSIND #### [facility] [address] [address] [address] Dariel Silverman SPEC GRAVITY 1.020 Normal 1.005-<=1.02 5 [facility] Comment on above: Performed By: #### U MICRO, UACSIND #### [facility] [address] [place] [address] Dr. Dariel Silverman UA PROTEIN Negative Normal NEGATIVE/ TRACE [facility] Comment on above: Performed By: #### U MICRO, UACSIND #### [facility] [address] [place] [address] Dr. Dariel Silverman UR MICRO IND INDICATED Normal [facility] Comment on above: Performed By: #### U MICRO, UACSIND #### [facility] [address] [place] [address] Dr. Dariel Silverman Urobilinogen Qn (U) 1.0 {Ladonna'U}/dL Normal 0.2 - 1. 0 [facility] Comment on above: Performed By: #### U MICRO, UACSIND #### [facility] [address] [place] [address] Dr. Dariel Silverman URINE MICROSCOPIC ONLYon BACTERIA SMALL Abnormal NONE SEEN [facility] Comment on above: Performed By: #### U MICRO, UACSIND #### [facility] [address] [place] [address] Dr. Dariel Silverman Bacteria identified Cx Nom (U) INDICATED Normal [facility] Comment on above: Performed By: #### U MICRO, UACSIND #### [facility] [address] [place] [address] Dr. Dariel Silverman CAST NONE SEEN Normal NONE SEEN [facility] Comment on above: Performed By: #### U MICRO, UACSIND #### [facility] [address] [address] [address] Dariel Silverman Crystals LM Nom (Urine sed) NONE SEEN Normal NONE SEEN [facility] Comment on above: Performed By: #### U MICRO, UACSIND #### [facility] [address] [address] [address] Dariel Silverman Epithelial cells LM Ql (Urine sed) FEW Abnormal NONE SEEN /RARE [facility] Comment on above: Performed By: #### U MICRO, UACSIND #### [facility] [address] [address] [address] Dariel Silverman MUCOUS MODERATE Abnormal NONE SEEN [facility] Comment on above: Performed By: #### U MICRO, UACSIND #### [facility] [address] [place] [address] Dr. Dariel Silverman RBC 0-2 Normal 0-2 [facility] Comment on above: Performed By: #### U MICRO, UACSIND #### [facility] [address] [address] [address] Dariel Silverman WBC 0-2 Abnormal NONE SEEN [facility] Comment on above: Performed By: #### U MICRO, UACSIND #### [facility] [address] [address] [address] Dariel Silverman GLUCOSE - 1HRon 05-27-2021 Glucose [Mass/Vol] 92 mg/dL Normal 74-106 [facility] Comment on above: Performed By: #### U MICRO, UACSIND #### [facility] [address] [address] [address] Dariel Silverman HEMOGRAM AND PLATELon 2021 Hematocrit (Bld) [Volume fraction] 33.1 % Critically low 36.0-48.0 [facility] Comment on above: Performed By: #### U MICRO, UACSIND #### [facility] [address] [address] [address] Dariel Silverman Hemoglobin (Bld) [Mass/Vol] 10.8 g/dL Critically low 12.0-16.0 [facility] Comment on above: Performed By: #### U MICRO, UACSIND #### [facility] [address] [place] [address] Dr. Dariel Silverman MCH (RBC) [Entitic mass] 29.1 pg Normal 26.7-34.0 [facility] Comment on above: Performed By: #### U MICRO, UACSIND #### [facility] [address] [place] [address] Dr. Dariel Silverman MCHC (RBC) [Mass/Vol] 32.6 g/dL Normal 29.9-35.2 [facility] Comment on above: Performed By: #### U MICRO, UACSIND #### [facility] [address] [place] [address] Dr. Dariel Silverman MCV (RBC) [Entitic vol] 89.2 fL Normal 81.0-99.0 [facility] Comment on above: Performed By: #### U MICRO, UACSIND #### [facility] [address] [place] [address] Dr. Dariel Silverman PLT 252 103/ul Normal 150-450 [facility] Comment on above: Performed By: #### U MICRO, UACSIND #### [facility] [address] [place] [address] Dr. Dariel Silverman RBC 3.71 106/ul Critically low 4.20-5.40 [facility] Comment on above: Performed By: #### U MICRO, UACSIND #### [facility] [address] [place] [address] Dr. Dariel Silverman WBC 11.8 103/ul Critically high 4.0-11.[address] [facility] Comment on above: Performed By: #### U MICRO, UACSIND #### [facility] [address] [place] [address] Dr. Dariel Silverman PAP ACOG PANEL 2: 21 to 29on 04-27-2021 . . Normal [facility] Comment on above: Performed By: #### U MICRO, UACSIND #### [facility] [address] [place] [address] Dr. Dariel Silverman Age Gdln ACOG Testing 21-29 Normal [facility] Comment on above: Performed By: #### U MICRO, UACSIND #### [facility] [address] [address] [address] Dariel Silverman DIAGNOSIS: Comment Abnormal [facility] Comment on above: Result Comment: EPIT HELIAL CELL ABNORMALITY. ATYPICAL SQUAMOUS CELLS OF UNDETERMINED SIGNIFICANCE (ASC-US). Performed By: #### U MICRO, UACSIND #### [facility] [address] [address] [address] Dariel Silverman Electronically signed by: Comment Normal [facility] Comment on above: Result Comment: Fabi Lira MD, Pathologist Performed By: #### U MICRO, UACSIND #### [facility] [address] [place] [address] Dr. Dariel Silverman HPV Aptima Positive Abnormal Negative [facility] Comment on above: Result Comment: This nucleic acid amplification test detects fourteen high-risk HPV types (16,18,31,33,35,39,45,51,52,56,58,59,66,68) without differentiation. Performed By: #### U MICRO, UACSIND #### [facility] [address] [place] [address] Dr. Dariel Silverman Methodology: Comment Normal [facility] Comment on above: Result Comment: This liquid based ThinPrep(R) pap test was screened with the use of an image guided system. Performed By: #### U MICRO, UACSIND #### [facility] [address] [place] [address] Dr. Dariel Silverman Note: Comment Normal [facility] Comment on above: Result Comment: The Pap smear is a screening test designed to aid in the detection of premalignant and malignant conditions of the uterine cervix. It is not a diagnostic procedure and should not be used as the sole means of detecting cervical cancer. Both false-positive and false-negative reports do occur. . Performed By: #### U MICRO, UACSIND #### [facility] [address] [address] [address] Dariel Silverman Pathologist Provided ICD10 Comment Normal [facility] Comment on above: Result Comment: [id number]. [id number] Performed By: #### U MICRO, UACSIND #### [facility] [address] [address] [address] Dariel Silverman Performed by: Comment Normal [facility] Comment on above: Result Comment: Renu rGay, Diamond Powder Mixer (ASCP) Performed By: #### U MICRO, UACSIND #### [facility] [address] [address] [address] Dariel Silverman Recommendation: Comment Abnormal [facility] Comment on above: Result Comment: Sugg est follow up as clinically appropriate. Performed By: #### U MICRO, UACSIND #### [facility] [address] [address] [address] Dariel Silverman Reflex Criteria: Comment Normal [facility] Comment on above: Result Comment: See below for HPV testing results. . Performed By: #### U MICRO, UACSIND #### [facility] [address] [address] [address] Dariel Silverman Specimen adequacy: Comment Normal [facility] Comment on above: Result Comment: Sati sfactory for evaluation. Endocervical and/or squamous metaplastic cells (endocervical component) are present. Performed By: #### U MICRO, UACSIND #### [facility] [address] [address] [address] Dariel Silverman US PREG ANATOMY SINGLEon US PREG ANATOMY SINGLE EXAMINATION: US PREG ANATOMY SINGLE HISTORY: anatomy study COMPARISON: No relevant comparison available. TECHNIQUE: Transabdominal sonographic examination was performed for obstetrical and evaluation. FINDINGS: Number: 1 Heart Rate: 150 H.B. /min Amniotic Fluid Volume: Subjectively normal position: Variable presentation and lie Placental Location: Posterior, grade 0. Placental edge 5.7 cm from the cervical os Cervix Length: 4.8 cm, closed Normal structures: Cerebellum. Choroid plexus. Cisterna magna. Lateral cerebral ventricles. Orbits. Midline falx. Hard palate. 4-chamber heart. RVOT. LVOT. Stomach. Kidneys. Bladder. Umbilical cord insertion into abdomen. 3 vessel cord. Cervical spine. Thoracic spine. Lumbar spine. Sacral spine. Right upper extremity. Left upper extremity. Right lower extremity. Left lower extremity. Suboptimally seen: None. Abnormalities/Other: None BIOMETRY: BPD: 4.8 cm 20 weeks 2 days HC: 19.2 cm 21 weeks 3 days AC: 16.5 cm 21 weeks 4 days FL: 4.1 cm 23 weeks 1 days EFW:1 lb. 2 oz., 74% by ultrasound, 19% by expected EDC; FL/AC: 0.870261 FL/BPD: 0.938700 HC/AC: 1.590233 GESTATIONAL AGE: Age by EDC: 22 weeks 5 days TRACIE by EDC: 08/20/2021 Age by current US: 21 weeks 4 days TRACIE by current US: 08/28/2021 IMPRESSION: Normal anatomy scan *Reference: [employer] Practice Guideline for the performance of Obstetric Ultrasound Examinations, December 05, 2006. Electronically authenticated by: BONNIE MORGAN Date: 2021-04-21 16:22 Normal [facility] Vital Signs Date Time Vital Sign Value Performing Clinician Facility 02-15-2023 17:35-0500 Diastolic blood pressure 54 mm[Hg] Katelyn Tomasa [facility] 02-15-2023 17:35-0500 Heart rate 74 /min Katelyn Tomasa [facility] 02-15-2023 17:35-0500 Hourly Rounding Katelyn Tomasa [facility] 02-15-2023 17:35-0500 Mean blood pressure 70 mm[Hg] Katelyn Tomasa [facility] 02-15-2023 17:35-0500 Promise to Return Katelyn Tomasa [facility] 02-15-2023 17:35-0500 Respiratory rate 18 /min Katelyn Tomasa [facility] 02-15-2023 17:35-0500 SaO2% (BldA) [Mass fraction] 99 % Katelyn Tomasa [facility] 02-15-2023 17:35-0500 Systolic blood pressure 103 mm[Hg] Katelyn Tomasa [facility] 02-15-2023 16:35-0500 Diastolic blood pressure 56 mm[Hg] Katelyn Tomasa [facility] 02-15-2023 16:35-0500 Heart rate 72 /min Katelyn Tomasa [facility] 02-15-2023 16:35-0500 Hourly Rounding Katelyn Tomasa [facility] 02-15-2023 16:35-0500 Promise to Return Katelyn Tomasa [facility] 02-15-2023 16:35-0500 Respiratory rate 18 /min Katelyn Tomasa [facility] 02-15-2023 16:35-0500 SaO2% (BldA) [Mass fraction] 99 % Katelyn Tomasa [facility] 02-15-2023 16:35-0500 Systolic blood pressure 106 mm[Hg] Katelyn Tomasa [facility] 02-15-2023 15:39-0500 Body temperature 97.7 [degF] Katelyn Tomasa [facility] 02-15-2023 15:39-0500 Diastolic blood pressure 53 mm[Hg] Katelyn Tomasa [facility] 02-15-2023 15:39-0500 Heart rate 76 /min Katelyn Tomasa [facility] 02-15-2023 15:39-0500 Respiratory rate 18 /min Katelyn Tomasa [facility] 02-15-2023 15:39-0500 SaO2% (BldA) [Mass fraction] 100 % Katelyn Tomasa [facility] 02-15-2023 15:39-0500 Systolic blood pressure 101 mm[Hg] Katelyn Randolph [facility] 02-14-2023 11:39-0500 Diastolic blood pressure 60 mm[Hg] Huang FLORES [facility] 02-14-2023 11:39-0500 Heart rate 67 /min Huang FLORES [facility] 02-14-2023 11:39-0500 SaO2% (BldA) [Mass fraction] 98 % Hunagamaury FLORES [facility] 02-14-2023 11:39-0500 Systolic blood pressure 102 mm[Hg] Huang FLORES [facility] 02-10-2023 12:50-0500 Diastolic blood pressure 64 mm[Hg] Quintin Murcia [facility] 02-10-2023 12:50-0500 Heart rate 79 /min Quintin Murcia [facility] 02-10-2023 12:50-0500 Hourly Rounding Quintin Murcia [facility] 02-10-2023 12:50-0500 Mean blood pressure 79 mm[Hg] Quintin Murcia [facility] 02-10-2023 12:50-0500 Promise to Return Quintinchris Murcia [facility] 02-10-2023 12:50-0500 Respiratory rate 14 /min Quintin Twin [facility] 02-10-2023 12:50-0500 SaO2% (BldA) [Mass fraction] 100 % Quintin Twin [facility] 02-10-2023 12:50-0500 Systolic blood pressure 110 mm[Hg] Quintin Twin [facility] 02-10-2023 11:52-0500 Body temperature 97.7 [degF] Quintin Murcia [facility] 02-10-2023 11:52-0500 Diastolic blood pressure 68 mm[Hg] Quintin Murcia [facility] 02-10-2023 11:52-0500 Heart rate 82 /min Quintin Murcia [facility] 02-10-2023 11:52-0500 Respiratory rate 14 /min Quintin Murcia [facility] 02-10-2023 11:52-0500 SaO2% (BldA) [Mass fraction] 100 % Quintin Murcia [facility] 02-10-2023 11:52-0500 Systolic blood pressure 108 mm[Hg] Quintin Murcia [facility] 02-08-2023 10:19-0500 Blood Pressure Location Huang FLORES [facility] 02-08-2023 10:19-0500 Diastolic blood pressure 81 mm[Hg] Huang FLORES [facility] 02-08-2023 10:19-0500 Heart rate 90 /min Huang FLORES [facility] 02-08-2023 10:19-0500 SaO2% (BldA) [Mass fraction] 100 % Huang FLORES [facility] 02-08-2023 10:19-0500 Systolic blood pressure 119 mm[Hg] Huang FLORES [facility] 12-16-2022 13:58-0400 Blood Pressure Location Huang FLORES [facility] 12-16-2022 13:58-0400 Diastolic blood pressure 66 mm[Hg] Huang FLORES [facility] 12-16-2022 13:58-0400 Heart rate 57 /min Huang FLORES [facility] 12-16-2022 13:58-0400 SaO2% (BldA) [Mass fraction] 100 % Huang FLORES [facility] 12-16-2022 13:58-0400 Systolic blood pressure 108 mm[Hg] Huang FLORES [facility] 11-15-2022 10:02-0400 Blood Pressure Location Drake Genao [facility] 11-15-2022 10:02-0400 Body temperature 97.7 [degF] Drake Genao [facility] 11-15-2022 10:02-0400 Diastolic blood pressure 78 mm[Hg] Drake Genao [facility] 11-15-2022 10:02-0400 Heart rate 70 /min Drake Genao [facility] 11-15-2022 10:02-0400 SaO2% (BldA) [Mass fraction] 99 % Drake Genao [facility] 11-15-2022 10:02-0400 Systolic blood pressure 122 mm[Hg] Drake Genao [facility] 11-03-2022 09:34-0400 Blood Pressure Location GIOVANNI HAWTHORNE [facility] 11-03-2022 09:34-0400 Body temperature 97.16 [degF] GIOVANNI HAWTHORNE [facility] 11-03-2022 09:34-0400 Diastolic blood pressure 72 mm[Hg] GIOVANNI HAWTHORNE [facility] 11-03-2022 09:34-0400 Heart rate 95 /min GIOVANNI TOMLINTIZ [facility] 11-03-2022 09:34-0400 SaO2% (BldA) [Mass fraction] 99 % GIOVANNI TOMLINTIZ [facility] 11-03-2022 09:34-0400 Systolic blood pressure 120 mm[Hg] GIOVANNI TOMLINTIZ [facility] 11-02-2022 13:23-0400 Diastolic blood pressure 67 mm[Hg] Hasan AMIR [facility] 11-02-2022 13:23-0400 Heart rate 67 /min Hasan AMIR [facility] 11-02-2022 13:23-0400 Mean blood pressure 82 mm[Hg] Hasan AMIR [facility] 11-02-2022 13:23-0400 Respiratory rate 17 /min Hasan AMIR [facility] 11-02-2022 13:23-0400 Systolic blood pressure 112 mm[Hg] Hasan AMIR [facility] 11-02-2022 13:00-0400 Hourly Rounding Hasan AMIR [facility] 11-02-2022 13:00-0400 Promise to Return Hasan AMIR [facility] 11-02-2022 12:00-0400 Hourly Rounding Hasan AMIR [facility] 11-02-2022 12:00-0400 Promise to Return Hasan AMIR [facility] 11-02-2022 11:05-0400 Heart rate 67 /min Hasan AMIR [facility] 11-02-2022 11:05-0400 SaO2% (BldA) [Mass fraction] 98 % Hasan AMIR [facility] 11-02-2022 11:04-0400 Body temperature 98.06 [degF] Hasan AMIR [facility] 11-02-2022 11:04-0400 Diastolic blood pressure 67 mm[Hg] Hasan AMIR [facility] 11-02-2022 11:04-0400 Mean blood pressure 82 mm[Hg] Hasan AMIR [facility] 11-02-2022 11:04-0400 Systolic blood pressure 112 mm[Hg] Hasan AMIR [facility] 11-02-2022 11:00-0400 Hourly Rounding Hasan AMIR [facility] 11-02-2022 11:00-0400 Promise to Return Hasan AMIR [facility] 11-02-2022 08:11-0400 SaO2% (BldA) [Mass fraction] 99 % Hasan AMIR [facility] 11-02-2022 06:17-0400 Heart rate 64 /min Hasan AMIR [facility] 11-02-2022 06:17-0400 SaO2% (BldA) [Mass fraction] 99 % Hasan AMIR [facility] 11-02-2022 06:17-0400 Respiratory rate 14 /min Hasan AMIR [facility] 11-02-2022 06:16-0400 Body temperature 97.7 [degF] Hasan AMIR [facility] 11-02-2022 06:16-0400 Diastolic blood pressure 65 mm[Hg] Hasan AMIR [facility] 11-02-2022 06:16-0400 Mean blood pressure 78 mm[Hg] Hasan AMIR [facility] 11-02-2022 06:16-0400 Systolic blood pressure 103 mm[Hg] Hasan AMIR [facility] 11-02-2022 01:44-0400 Heart rate 70 /min Hasan AMIR [facility] 11-02-2022 01:44-0400 Mean blood pressure 81 mm[Hg] Hasan AMIR [facility] 11-02-2022 01:44-0400 Respiratory rate 18 /min Hasan AMIR [facility] 11-02-2022 00:00-0400 Body temperature 96.8 [degF] Hasan AMIR [facility] 11-02-2022 00:00-0400 Heart rate 63 /min Hasan AMIR [facility] 11-02-2022 00:00-0400 Mean blood pressure 88 mm[Hg] Hasan AMIR [facility] 11-01-2022 19:57-0400 Mean blood pressure 80 mm[Hg] Hasan AMIR [facility] 11-01-2022 18:55-0400 Body temperature 98.06 [degF] Hasan AMIR [facility] 11-01-2022 18:43-0400 Body temperature 97.7 [degF] Hasan AMIR [facility] 11-01-2022 18:05-0400 Blood Pressure Location Hasan AMIR [facility] 11-01-2022 18:05-0400 Body temperature 97.7 [degF] Hasan AMIR [facility] 11-01-2022 18:05-0400 Heart rate 57 /min Hasan AMIR [facility] 11-01-2022 13:35-0400 Body temperature 97.88 [degF] Hasan AMIR [facility] 09-28-2022 23:52-0400 Body temperature 97.52 [degF] Kaylinn Dokken [facility] 09-28-2022 23:52-0400 Diastolic blood pressure 69 mm[Hg] Kaylinn Dokken [facility] 09-28-2022 23:52-0400 Heart rate 75 /min Kaylinn Dokken [facility] 09-28-2022 23:52-0400 Respiratory rate 15 /min Kaylinn Dokken [facility] 09-28-2022 23:52-0400 SaO2% (BldA) [Mass fraction] 99 % Kaylinn Dokken [facility] 09-28-2022 23:52-0400 Systolic blood pressure 100 mm[Hg] Kaylinn Dokken [facility] 07-02-2022 11:23-0400 Blood Pressure Location KATELYN SIDELL [facility] 07-02-2022 11:23-0400 Body temperature 98.06 [degF] KATELYN SIDELL [facility] 07-02-2022 11:23-0400 Diastolic blood pressure 62 mm[Hg] KATELYN SIDELL [facility] 07-02-2022 11:23-0400 Heart rate 58 /min KATELYN SIDELL [facility] 07-02-2022 11:23-0400 SaO2% (BldA) [Mass fraction] 100 % KATELYN SIDELL [facility] 07-02-2022 11:23-0400 Systolic blood pressure 110 mm[Hg] KATELYN SIDELL [facility] 05-11-2022 23:58-0500 Heart rate 75 /min Quintin Twin [facility] 05-11-2022 23:58-0500 Hourly Rounding Quintin Twin [facility] 05-11-2022 23:58-0500 Respiratory rate 16 /min Quintin Twin [facility] 05-11-2022 23:58-0500 SaO2% (BldA) [Mass fraction] 99 % Quintin Twin [facility] 05-11-2022 22:08-0500 Diastolic blood pressure 67 mm[Hg] Quintin Twin [facility] 05-11-2022 22:08-0500 Heart rate 67 /min Quintin Twin [facility] 05-11-2022 22:08-0500 Hourly Rounding Quintin Twin [facility] 05-11-2022 22:08-0500 Mean blood pressure 82 mm[Hg] Quintin Twin [facility] 05-11-2022 22:08-0500 Respiratory rate 16 /min Quintin Twin [facility] 05-11-2022 22:08-0500 SaO2% (BldA) [Mass fraction] 98 % Quintin Twin [facility] 05-11-2022 22:08-0500 Systolic blood pressure 113 mm[Hg] Quintin Twin [facility] 05-11-2022 21:05-0500 Body temperature 97.52 [degF] Quintin Twin [facility] 05-11-2022 21:05-0500 Diastolic blood pressure 70 mm[Hg] Quintin Twin [facility] 05-11-2022 21:05-0500 Heart rate 73 /min Quintin Twin [facility] 05-11-2022 21:05-0500 Hourly Rounding Quintinchris Murcia [facility] 05-11-2022 21:05-0500 Respiratory rate 20 /min Quintin Twin [facility] 05-11-2022 21:05-0500 SaO2% (BldA) [Mass fraction] 100 % Quintin Twin [facility] 05-11-2022 21:05-0500 Systolic blood pressure 109 mm[Hg] Quintin Twin [facility] 04-20-2022 15:16-0500 Blood Pressure Location KATELYN SIDEGRABIEL [facility] 04-20-2022 15:16-0500 Body temperature 98.06 [degF] KATELYN SIDELL [facility] 04-20-2022 15:16-0500 Diastolic blood pressure 70 mm[Hg] KATELYN SIDELL [facility] 04-20-2022 15:16-0500 Heart rate 83 /min KATELYN SIDELL [facility] 04-20-2022 15:16-0500 SaO2% (BldA) [Mass fraction] 99 % KATELYN SIDELL [facility] 04-20-2022 15:16-0500 Systolic blood pressure 104 mm[Hg] KATELYN SIDELL [facility] 03-05-2022 00:00-0500 Body temperature 98.24 [degF] Quintin Twin [facility] 03-05-2022 00:00-0500 Diastolic blood pressure 88 mm[Hg] Quintin Twin [facility] 03-05-2022 00:00-0500 Heart rate 78 /min Quintin Twin [facility] 03-05-2022 00:00-0500 Mean blood pressure 99 mm[Hg] Quintin Twin [facility] 03-05-2022 00:00-0500 Respiratory rate 18 /min Quintin Twin [facility] 03-05-2022 00:00-0500 SaO2% (BldA) [Mass fraction] 97 % Quintin Twin [facility] 03-05-2022 00:00-0500 Systolic blood pressure 120 mm[Hg] Quint[facility] Twin [facility] [facility] 03-04-2022 23:00-0500 Diastolic blood pressure 67 mm[Hg] Quintin Tiwn [facility] 03-04-2022 23:00-0500 Heart rate 75 /min Quintin Twin [facility] 03-04-2022 23:00-0500 Mean blood pressure 86 mm[Hg] Quintin Twin [facility] 03-04-2022 23:00-0500 Respiratory rate 17 /min Quintin Murcia [facility] 03-04-2022 23:00-0500 SaO2% (BldA) [Mass fraction] 98 % Quintin Murcia [facility] 03-04-2022 23:00-0500 Systolic blood pressure 123 mm[Hg] Quintin Murcia [facility] 03-04-2022 22:00-0500 Body temperature 97.7 [degF] Quintin Murcia [facility] 03-04-2022 22:00-0500 Mean blood pressure 100 mm[Hg] Quintin Murcia [facility] 03-04-2022 22:00-0500 Systolic blood pressure 125 mm[Hg] Quintin Murcia [facility] 01-06-2022 10:15-0400 Body temperature 98.24 [degF] Quintin Murcia [facility] 01-06-2022 10:15-0400 Diastolic blood pressure 84 mm[Hg] Quintin Murcia [facility] 01-06-2022 10:15-0400 Heart rate 87 /min Quintin Murcia [facility] 01-06-2022 10:15-0400 Respiratory rate 18 /min Quintin Murcia [facility] 01-06-2022 10:15-0400 SaO2% (BldA) [Mass fraction] 98 % Quintin Murcia [facility] 01-06-2022 10:15-0400 Systolic blood pressure 126 mm[Hg] Quintin Murcia [facility] 09-13-2021 12:16-0400 Body temperature 98.24 [degF] Quintin Murcia [facility] 09-13-2021 12:16-0400 Diastolic blood pressure 72 mm[Hg] Quintin Murcia [facility] 09-13-2021 12:16-0400 Heart rate 70 /min Quintin Murcia [facility] 09-13-2021 12:16-0400 Respiratory rate 18 /min Quintin Twin [facility] 09-13-2021 12:16-0400 SaO2% (BldA) [Mass fraction] 100 % Quintin Twin [facility] 09-13-2021 12:16-0400 Systolic blood pressure 116 mm[Hg] Quintin Murcia [facility] Encounters Encounter Date Encounter Type Care Provider Facility Start: 02-25-2023 End: 02-26-2023 ambulatory Katelyn L Tomasa [place] Start: 02-25-2023 End: 02-25-2023 Patient encounter procedure Katelyn L Tomaas [facility] Start: 02-23-2023 End: 02-24-2023 ambulatory Katelyn L Tomasa [facility] Start: 02-21-2023 End: 02-22-2023 ambulatory Katelyn L Tomasa Facility:[facility] Start: 02-15-2023 End: 02-15-2023 Emergency department patient visit [facility] Facility[facility] Start: 02-15-2023 End: 02-15-2023 Emergency department patient visit Katelyn Tomasa [facility] Start: 02-14-2023 End: 02-15-2023 ambulatory Huang FLORES [facility] Start: 02-14-2023 End: 02-14-2023 Patient encounter procedure Huang FLORES [facility] Start: 02-10-2023 End: 02-10-2023 Emergency department patient visit Quintin Murcia [facility] Start: 02-10-2023 End: 02-10-2023 Emergency department patient visit Quintin Murcia [facility] Start: 02-03-2023 End: 02-03-2023 ambulatory KEO HAND Not Available Start: 01-26-2023 End: 01-27-2023 ambulatory Katelyn L Tomasa Facility:[facility] Start: 01-14-2023 End: 01-15-2023 ambulatory Katelyn L Tomasa [facility] Start: 01-14-2023 End: 01-14-2023 Patient encounter procedure Katelyn L Tomasa [facility] Start: 01-03-2023 End: 01-04-2023 ambulatory Huang FLORES [facility] Start: 12-29-2022 End: 12-30-2022 ambulatory Katelyn L Tomasa Facility:[facility] Start: 12-16-2022 End: 12-17-2022 ambulatory Huang FLORES [facility] Start: 12-16-2022 End: 12-22-2022 Pre-admission assessment Huang FLORES [facility] Start: 12-16-2022 End: 12-16-2022 Patient encounter procedure Huang FLORES [facility] Start: 12-16-2022 End: 12-17-2022 ambulatory Katelyn L Tomasa [facility] Start: 12-16-2022 End: 12-16-2022 Patient encounter procedure Katelyn L Tomasa [facility] Start: 12-03-2022 ambulatory Lee Forrest acility:[facility] Start: 12-01-2022 End: 12-01-2022 Emergency department patient visit Winnie Paula Facility[place] Start: 11-24-2022 End: 11-25-2022 ambulatory Katelyn L Tomasa [facility] Start: 11-24-2022 End: 11-24-2022 Patient encounter procedure Katelyn L Tomasa [facility] Start: 11-19-2022 End: 11-20-2022 ambulatory Katelyn L Tomasa Facility:[facility] Start: 11-16-2022 End: 11-17-2022 ambulatory Drake Genao [facility] Start: 11-16-2022 End: 11-16-2022 Patient encounter procedure Drake Genao [facility] Start: 11-15-2022 End: 11-16-2022 ambulatory Drake Genao [facility] Start: 11-15-2022 End: 11-16-2022 ambulatory Drake Genao Facility: [place] Start: 11-15-2022 End: 11-15-2022 Lab Drop off Drake Genao [facility] Start: 11-15-2022 End: 11-15-2022 Patient encounter procedure Drake Genao [facility] Start: 11-09-2022 End: 11-10-2022 ambulatory Katelyn L Tomasa Facility:[facility] Start: 11-04-2022 ambulatory Huang FLORES Facility: [facility] Start: 11-03-2022 End: 12-13-2022 ambulatory Katelyn Randolph Facility:CD:[id number] Start: 11-03-2022 End: 11-04-2022 ambulatory GIOVANNI TOMLINTIZ Facility:[facility] [place] Start: 11-03-2022 End: 11-03-2022 Patient encounter procedure GIOVANNI TOMLINTIZ [facility] Start: 11-01-2022 End: 11-02-2022 ambulatory Hasan AMIR [facility] Start: 11-01-2022 End: 11-02-2022 Observation Hasan AMIR [facility] Start: 09-29-2022 End: 09-29-2022 Emergency department patient visit Winnie Paula [facility] Start: 09-28-2022 End: 09-29-2022 Emergency department patient visit Winnie Paula [facility] Start: 07-02-2022 End: 07-03-2022 ambulatory KATELYN W SIDELL Facility:[facility] Start: 07-02-2022 End: 07-02-2022 Patient encounter procedure KATELYN W SIDELL [facility] Start: 06-22-2022 End: 06-23-2022 ambulatory KATELYN W SIDELL Facility:[facility] Start: 06-16-2022 End: 06-17-2022 ambulatory KATELYN W SIDELL [place] Start: 06-16-2022 End: 06-16-2022 Patient encounter procedure KATELYN W SIDELL [facility] Start: 05-13-2022 End: 05-14-2022 ambulatory Sheila Smith Facility:[facility] [place] Start: 05-13-2022 End: 05-13-2022 Patient encounter procedure Sheila X Sarah [facility] Start: 05-11-2022 End: 05-12-2022 Emergency department patient visit Quintin Murcia [facility] Start: 05-11-2022 End: 05-12-2022 Emergency department patient visit Quintin Murcia [facility] Start: 04-27-2022 End: 04-28-2022 ambulatory KATELYN W SIDELL [facility] Start: 04-27-2022 End: 04-27-2022 Patient encounter procedure KATELYN W SIDELL [facility] Start: 04-20-2022 End: 04-21-2022 ambulatory KATELYN W SIDELL Facility:[facility] Start: 04-20-2022 End: 04-20-2022 Patient encounter procedure KATELYN W SIDELL [facility] Start: 04-19-2022 ambulatory Huang FLORES Facility: [facility] Start: 04-14-2022 End: 04-15-[address] Bonnie Morgan Facility: Start: 03-25-2022 End: 03-25-[address] KEO HAND Facility: Start: 03-04-2022 End: 03-05-2022 Emergency department patient visit Quintin Murcia [facility] Start: 03-04-2022 End: 03-05-2022 Emergency department patient visit Quintin Murcia [facility] Start: 01-20-2022 End: 01-21-[address] KEO HAND Facility: Start: 01-13-2022 End: 01-13-[address] KEO HAND Facility: Start: 01-06-2022 End: 01-06-2022 Emergency department patient visit Quintin Murcia [facility] Start: 10-22-2021 End: 10-22-[address] KEO HAND Facility:[facility] Start: 09-13-2021 End: 09-13-2021 Emergency department patient visit Quintin Murcia [facility] Start: 08-18-[address] CHRISTINE ALAS Facility:[facility] Start: 08-14-2021 End: 08-15-2021 Evaluation and management of inpatient DR ERIC ODEN Facility:[facility] Start: 08-09-2021 End: 08-09-[address] KEO HAND Facility:[facility] Start: 07-21-2021 End: 07-21-[address] KEO HAND Facility:[facility] Start: 06-28-2021 End: 06-28-[address] ERIC ODEN Facility:[facility] Start: 06-02-2021 End: 06-03-[address] KEO HAND Facility:[facility] Start: 05-28-2021 End: 05-28-[address] KEO HAND Facility:[facility] Start: 05-27-2021 End: 05-28-[address] KOE HAND Facility:[facility] Start: 04-21-2021 End: 04-21-[address] ERIC ODEN Facility:[facility] Start: 04-21-2021 End: 04-22-[address] Bonnie Morgan Facility:[facility] Procedures Date Procedure Procedure Detail Performing Clinician Start: 08-14-2021 Delivery of Products of Conception, External Approach DR Bonnie Morgan Start: 08-14-2021 Drainage of Amniotic Fluid, Therapeutic from Products of Conception, Via Natural or Artificial Opening DR Bonnie Morgan Start: 02-01-2017 Betamethasone prepar ation (product) Quintin Murcia Start: 01-31-2017 Betamethasone prepar ation (product) Quintin Murcia Start: 03-07-2007 lacerated Kidney Quintin Murcia Right Hand Surgery Quintin abel Immunizations Immunization Date Immunization Notes Care Provider Fa cili 01-26-2019 influenza, seasonal, injectable Quintin Murcia [facility] Comment on above: Reason for Medicatio n: Other (see comment) 03-31-2018 influenza virus vaccine, unspecified formulation GIOVANNI HAWTHORNE [facility] 04-08-2017 tetanus toxoid, reduced diphtheria toxoid, and acellular pertussis vaccine, adsorbed Quintin Murcia [facility] Comment on above: Reason for Medicatio n: Other (see comment) 05-17-2012 hepatitis A vaccine, unspecified formulation GIOVANNI HAWTHORNE [facility] 05-17-2012 HPV, unspecified formulation [place] [facility] 05-17-2012 meningococcal ACWY vaccine, unspecified formulation [place] [facility] 05-17-2012 tetanus toxoid, reduced diphtheria toxoid, and acellular pertussis vaccine, adsorbed GIOVANNI HAWTHORNE [facility] 05-17-2012 varicella virus vaccine GIOVANNI HAWTHORNE [facility] 01-12-2000 DTaP, unspecified formulation GIOVANNI HAWTHORNE [facility] 01-12-2000 measles, mumps and rubella virus vaccine GIOVANNI HAWTHORNE [facility] 01-21-1999 haemophilus influenz ae type b vaccine, PRP-T conjugate GIOVANNI HAWTHORNE [facility] 03-11-1998 varicella virus vaccine GIOVANNI HAWTHORNE [facility] 08-10-1996 DTaP, unspecified formulation [place] [facility] 08-10-1996 measles, mumps and rubella virus vaccine GIOVANNI HAWTHORNE [facility] 09-29-1995 hepatitis B vaccine, adult dosage GIOVANNI HAWTHORNE [facility] 06-28-1995 DTP-Hib [place] [facility] 05-05-1995 DTP-Hib [place] [facility] 02-21-1995 DTP-Hib [place] [facility] 01-14-1995 hepatitis B vaccine, adult dosage [place] [facility] 1994 hepatitis B vaccine, adult dosage [place] [facility] NEGATED: Highlighted row has not occurred!12-16-2022 influenza virus vaccine, unspecified formulation Huang FLORES [facility] NEGATED: Highlighted row has not occurred!01-05-2022 influenza virus vaccine, unspecified formulation Quintin Twin [facility] Payers Date Payer Category Payer Self-pay 1994 Unknown [id number] 2.16.84 0.1.076923.3.579.2.593 1994 Unknown [id number] 2.16.84 0.1.682319.3.579.2.593 1994 Unknown [id number] 2.16.84 0.1.592435.3.579.2.593 1994 Unknown [id number] 2.16.84 0.1.311216.3.579.2.593 1994 Unknown [id number] 2.16.84 0.1.517053.3.579.2.593 1994 Unknown [id number] 2.16.84 0.1.697046.3.579.2.593 1994 Unknown [id number] 2.16.84 0.1.939019.3.579.2.593 1994 Unknown [id number] 2.16.84 0.1.665658.3.579.2.593 1994 Unknown [id number] 2.16.84 0.1.806821.3.579.2.593 1994 Unknown [id number] 2.16.84 0.1.330146.3.579.2.593 1994 Unknown [id number] 2.16.84 0.1.299746.3.579.2.593 1994 Unknown [id number] 2.16.84 0.1.541805.3.579.2.593 1994 Unknown [id number] 2.16.84 0.1.977625.3.579.2.593 1994 Unknown [id number] 2.16.84 0.1.675555.3.579.2.593 1994 Unknown [id number] 2.16.84 0.1.039432.3.579.2.593 1994 Unknown [id number] 2.16.840 .1.010689.3.579.2.1259 1994 Unknown [id number] 2.16.8 40.1.124154.3.579.2.727 1994 Unknown [id number] 2.16.8 40.1.614886.3.579.2.727 1994 Unknown [id number] 2.16.8 40.1.628757.3.579.2.727 1994 Unknown [id number] 2.16.8 40.1.589979.3.579.2.727 10-1995 Unknown [id number] 2.16.8 40.1.066696.3.579.2.72 1994 Unknown [id number] 2.16.8 40.1.548057.3.579.2.72 1994 Unknown [id number] 2.16.8 40.1.317761.3.579.2.72 1994 Unknown [id number] 2.16.8 40.1.846353.3.579.2. 1994 Unknown [id number] 2.16.8 40.1.871394.3.579.2.72 1994 Unknown [id number] 2.16.8 40.1.078525.3.579.2 1994 Unknown [id number] 2.16.8 40.1.705550.3.579.272 1994 Unknown [id number] 2.16.8 40.1.680625.3.579.2 1994 Unknown [id number] 2.16.8 40.1.790467.3.579.2 1994 Unknown [id number] 2.16.8 40.1.794582.3.579.2 1994 Unknown [id number] 2.16.8 40.1.221815.3.579.2.72 1994 Unknown [id number] 2.16.8 40.1.629595.3.579.2.72 1994 Unknown [id number] 2.16.8 40.1.601431.3.579.2.72 1994 Unknown [id number] 2.16.8 40.1.232724.3.579.2 1994 Unknown [id number] 2.16.8 40.1.056498.3.579.2.72 1994 Unknown [id number] 2.16.8 40.1.357390.3.579.2.727 1994 Unknown [id number] 2.16.8 40.1.155082.3.579.2.727 1994 Unknown [id number] 2.16.8 40.1.998390.3.579.2.727 1994 Unknown [id number] 2.16.8 40.1.236854.3.579.2.727 1994 Unknown [id number] 2.16.8 40.1.724769.3.579.2.727 1994 Unknown [id number] 2.16.8 40.1.052211.3.579.2.727 1994 Unknown [id number] 2.16.8 40.1.691981.3.579.2.727 1994 Unknown [id number] 2.16.8 40.1.982249.3.579.2.727 1994 Unknown [id number] 2.16.8 40.1.624227.3.579.2.727 1994 Unknown [id number] 2.16.8 40.1.703344.3.579.2.727 1994 Unknown [id number] 2.16.8 40.1.939333.3.579.2.727 1959 Unknown [id number] 1959 Unknown [id number] Unknown [id number] 2.16.8 40.1.134974.3.579.2.531 Social History Date Type Detail Facility Start: 11-28-2020 End: 02-08-2023 Tobacco smoking status Ex-smoker (finding) [facility] Sex Assigned At Female [facility] Tobacco [facility] Comment on above: vapes Tobacco smoking status No Smokin g Status Entered [facility] Start: 07-02-2022 End: 11-03-2022 Tobacco smoking status Never smoked tobacco (finding) [facility] Comment on above: vapes Tobacco smoking status Never [facility] Comment on above: vapes Functional Status Date Assessment Result Facility 02-15-2023 Functional Status N/A [facility] 02-14-2023 Functional Status No [facility] 02-10-2023 Functional Status N/A [facility] 02-08-2023 Functional Status [facility] 12-16-2022 Functional Status No [facility] 11-15-2022 Functional Status N/A [facility] 11-03-2022 Functional Status N/A [facility] 11-01-2022 Functional Status No [facility] 11-01-2022 Functional Status [facility] 09-28-2022 Functional Status N/A [facility] 07-02-2022 Functional Status N/A [facility] 05-11-2022 Functional Status N/A [facility] 04-20-2022 Functional Status N/A [facility] 03-04-2022 Functional Status N/A [facility] 01-06-2022 Functional Status Yes [facility] 09-13-2021 Functional Status N/A [facility] Clinical Notes 09-13-2021 to 02-15-2023 Radiology Note Date & Type Note Facility 02-15-2023 Hospital Discharg e instructions Patient Education 02/15/2023 18:24:56 Potassium Content of Foods Potassium Content of Foods Potassium is a mineral found in many foods and drinks. It can affect how the heart works, affect blood pressure, and keep fluids and electrolytes balanced in the body. It is important not to have too much potassium (hyperkalemia) or too little potassium (hypokalemia) in the body, especially in the blood. Potassium is naturally found in many different types of whole foods, such as fruits, vegetables, meat, and dairy products. Processed foods tend to be lower in potassium. The amount of potassium you need each day depends on your age and any medical conditions you may have. General recommendations are: Females aged 19 and older: 2,600 mg per day. Males aged 19 and older: 3,400 mg per day. Talk with your health care provider or dietitian about how much potassium you need. What foods are high in potassium? Below are examples of foods that have greater than 200 mg of potassium per serving. Fruits Solano 1 medium (130 g) has 230 mg of potassium. Banana 1 medium (120 g) has 420 mg of potassium. Cantaloupe, chunks 1 cup (160 g) has 430 mg of potassium. Vegetables Potato, baked, without skin 1 medium (170 g) has 600 mg of potassium. Broccoli, chopped, cooked cup (77.5 g) has 230 mg of potassium. Tomato, chopped or sliced 1 cup (152 g) has 400 mg of potassium. Grains Cereal, bran with raisins 1 cup (59 g) has 360 mg of potassium. Granola with almonds cup (82 g) has 220 mg of potassium. Meats and other proteins Ground beef aida 4 ounces (113 g) has 240 mg of potassium. Kidney beans, boiled cup (130 g) has 350 mg of potassium. Almonds 1 ounce (approximately 22 nuts or 28 g) has 200 mg of potassium. Dairy Cow's milk, 1% 1 cup (237 mL) has 360 mg of potassium. Plain vanilla low-fat yogurt cup (184 g) has 220 mg of potassium. The items listed above may not be a complete list of foods high in potassium. Actual amounts of potassium may be different depending on ripeness, shelf life, and food preparation. Contact a dietitian for more information. What foods are low in potassium? Below are examples of foods that have less than 200 mg of potassium per serving. Fruits Blueberries 1 cup (145 g) has 110 mg of potassium. Apple 1 medium (140 g) has 145 mg of potassium. Grapes 1 cup (160 g) has 175 mg of potassium. Vegetables Cabbage, raw 1 cup (70 g) has 120 mg of potassium. Cauliflower, chopped, cooked 1 cup (180 g) has 90 mg of potassium. Mahesh lettuce, chopped 1 cup (56 g) has 120 mg of potassium. Grains Bagel, plain one 4-inch (10 cm) has 100 mg of potassium. Whole wheat bread 1 slice (26 g) has 70 mg of potassium. White rice, cooked 1 cup (163 g) has 50 mg of potassium. Meats and other proteins Tuna, light, canned in water 3 ounces (85 g) has 150 mg of potassium. Egg, fried 1 large (50 g) has 60 mg of potassium. Peanuts 1 ounce (35 nuts or 28 g) has 180 mg of potassium. Tofu cup (252 g) has 150 mg of potassium. Dairy Cheese (cheddar, gertrudis, mozzarella, or provolone) 1 ounce (28 g) has 30 to 40 mg of potassium. The items listed above may not be a complete list of foods that are low in potassium. Actual amounts of potassium may be different depending on ripeness, shelf life, and food preparation. Contact a dietitian for more information. Summary Potassium is a mineral found in many foods and drinks. It affects how the heart works, affects blood pressure, and keeps fluids and electrolytes balanced in the body. The amount of potassium you need each day depends on your age and any existing medical conditions you may have. Your health care provider or dietitian may recommend an amount of potassium that you should have each day. This information is not intended to replace advice given to you by your health care provider. Make sure you discuss any questions you have with your health care provider. Document Revised: 11/24/2021 Document Reviewed: 11/05/2021 [employer] Patient Education 2022 [employer]. 02/15/2023 18:24:53 Hypokalemia Hypokalemia Hypokalemia means that the amount of potassium in the blood is lower than normal. Potassium is a mineral (electrolyte) that helps regulate the amount of fluid in the body. It also stimulates muscle tightening (contraction) and helps nerves work properly. Normally, most of the body's potassium is inside cells, and only a very small amount is in the blood. Because the amount in the blood is so small, minor changes to potassium levels in the blood can be life-threatening. What are the causes? This condition may be caused by: Antibiotic medicine. Diarrhea or vomiting. Taking too much of a medicine that helps you have a bowel movement (laxative) can cause diarrhea and lead to hypokalemia. Chronic kidney disease (CKD). Medicines that help the body get rid of excess fluid (diuretics). Eating disorders, such as anorexia or bulimia. Low magnesium levels in the body. Sweating a lot. What are the signs or symptoms? Symptoms of this condition include: Weakness. Constipation. Fatigue. Muscle cramps. Mental confusion. Skipped heartbeats or irregular heartbeat (palpitations). Tingling or numbness. How is this diagnosed? This condition is diagnosed with a blood test. How is this treated? This condition may be treated by: Taking potassium supplements. Adjusting the medicines that you take. Eating more foods that contain a lot of potassium. If your potassium level is very low, you may need to get potassium through an IV and be monitored in the hospital. Follow these instructions at home: Eating and drinking Eat a healthy diet. A healthy diet includes fresh fruits and vegetables, whole grains, healthy fats, and lean proteins. If told, eat more foods that contain a lot of potassium. These include: ?Nuts, such as peanuts and pistachios. ?Seeds, such as sunflower seeds and pumpkin seeds. ?Peas, lentils, and singletary beans. ?Whole grain and bran cereals and breads. ?Fresh fruits and vegetables, such as apricots, avocado, bananas, cantaloupe, kiwi, oranges, tomatoes, asparagus, and potatoes. ?Juices, such as orange, tomato, and prune. ?Lean meats, including fish. ?Milk and milk products, such as yogurt. General instructions Take sphj-lew-oedrtlv and prescription medicines only as told by your health care provider. This includes vitamins, natural food products, and supplements. Keep all follow-up visits. This is important. Contact a health care provider if: You have weakness that gets worse. You feel your heart pounding or racing. You vomit. You have diarrhea. You have diabetes and you have trouble keeping your blood sugar in your target range. Get help right away if: You have chest pain. You have shortness of breath. You have vomiting or diarrhea that lasts for more than 2 days. You faint. These symptoms may be an emergency. Get help right away. Call 911. Do not wait to see if the symptoms will go away. Do not drive yourself to the hospital. Summary Hypokalemia means that the amount of potassium in the blood is lower than normal. This condition is diagnosed with a blood test. Hypokalemia may be treated by taking potassium supplements, adjusting the medicines that you take, or eating more foods that are high in potassium. If your potassium level is very low, you may need to get potassium through an IV and be monitored in the hospital. This information is not intended to replace advice given to you by your health care provider. Make sure you discuss any questions you have with your health care provider. Document Revised: 11/05/2021 Document Reviewed: 11/05/2021 [employer] Patient Education 2022 [employer]. 02/15/2023 18:24:51 Diarrhea, Adult, Svee-fu-Gvqf Diarrhea, Adult Diarrhea is when you pass loose and watery poop (stool) often. Diarrhea can make you feel weak and cause you to lose water in your body (get dehydrated). Losing water in your body can cause you to: Feel tired and thirsty. Have a dry mouth. Go pee (urinate) less often. Diarrhea often lasts 2 3 days. However, it can last longer if it is a sign of something more serious. It is important to treat your diarrhea as told by your doctor. Follow these instructions at home: Eating and drinking Follow these instructions as told by your doctor: Take an ORS (oral rehydration solution). This is a drink that helps you replace fluids and minerals your body lost. It is sold at pharmacies and stores. Drink plenty of fluids, such as: ?Water. ?Ice chips. ?Diluted fruit juice. ?Low-calorie sports drinks. ?Milk, if you want. Avoid drinking fluids that have a lot of sugar or caffeine in them. Eat bland, ntqm-hc-ztvtsc foods in small amounts as you are able. These foods include: ?Bananas. ?Applesauce. ?Rice. ?Low-fat (lean) meats. ?Kopperl. ?Crackers. Avoid alcohol. Avoid spicy or fatty foods. Medicines Take xyse-hji-ohavpwy and prescription medicines only as told by your doctor. If you were prescribed an antibiotic medicine, take it as told by your doctor. Do not stop using the antibiotic even if you start to feel better. General instructions Wash your hands often using soap and water. If soap and water are not available, use a hand operations general agent. Others in your home should wash their hands as well. Hands should be washed: ?After using the toilet or changing a diaper. ?Before preparing, cooking, or serving food. ?While caring for a sick person. ?While visiting someone in a hospital. Drink enough fluid to keep your pee (urine) pale yellow. Rest at home while you get better. Take a warm bath to help with any burning or pain from having diarrhea. Watch your condition for any changes. Keep all follow-up visits as told by your doctor. This is important. Contact a doctor if: You have a fever. Your diarrhea gets worse. You have new symptoms. You cannot keep fluids down. You feel light-headed or dizzy. You have a headache. You have muscle cramps. Get help right away if: You have chest pain. You feel very weak or you pass out (faint). You have bloody or black poop or poop that looks like tar. You have very bad pain, cramping, or bloating in your belly (abdomen). You have trouble breathing or you are breathing very quickly. Your heart is beating very quickly. Your skin feels cold and clammy. You feel confused. You have signs of losing too much water in your body, such as: ?Dark pee, very little pee, or no pee. ?Cracked lips. ?Dry mouth. ?Sunken eyes. ?Sleepiness. ?Weakness. Summary Diarrhea is when you pass loose and watery poop (stool) often. Diarrhea can make you feel weak and cause you to lose water in your body (get dehydrated). Take an ORS (oral rehydration solution). This is a drink that is sold at pharmacies and stores. Eat bland, kejl-oz-tjfgzd foods in small amounts as you are able. Contact a doctor if your condition gets worse. Get help right away if you have signs that you have lost too much water in your body. This information is not intended to replace advice given to you by your health care provider. Make sure you discuss any questions you have with your health care provider. Document Revised: 05/14/2022 Document Reviewed: 09/02/2021 [employer] Patient Education 2022 [employer]. Follow Up Care 02/15/2023 15:30:02 With:Katelyn Mora FAM, MED Address: When:02/18/2023 [facility] 02-15-2023 Evaluation + Plan note Diagnostic Tests PendingRotavirus Ab 02/15/23 Future Scheduled TestsEcho Transthoracic Complete 12/16/22 [facility] 02-10-2023 Hospital Discharg e instructions Patient Education 02/10/2023 13:19:58 Viral Gastroenteritis, Adult Viral Gastroenteritis, Adult Viral gastroenteritis is also known as the stomach flu. This condition may affect your stomach, small intestine, and large intestine. It can cause sudden watery diarrhea, fever, and vomiting. This condition is caused by many different viruses. These viruses can be passed from person to person very easily (are contagious). Diarrhea and vomiting can make you feel weak and cause you to become dehydrated. You may not be able to keep fluids down. Dehydration can make you tired and thirsty, cause you to have a dry mouth, and decrease how often you urinate. It is important to replace the fluids that you lose from diarrhea and vomiting. What are the causes? Gastroenteritis is caused by many viruses, including rotavirus and norovirus. Norovirus is the most common cause in adults. You can get sick after being exposed to the viruses from other people. You can also get sick by: Eating food, drinking water, or touching a surface contaminated with one of these viruses. Sharing utensils or other personal items with an infected person. What increases the risk? You are more likely to develop this condition if you: Have a weak body defense system (immune system). Live with one or more children who are younger than 2 years. Live in a snf. Travel on cruise ships. What are the signs or symptoms? Symptoms of this condition start suddenly 1 3 days after exposure to a virus. Symptoms may last for a few days or for as long as a week. Common symptoms include watery diarrhea and vomiting. Other symptoms include: Fever. Headache. Fatigue. Pain in the abdomen. Chills. Weakness. Nausea. Muscle aches. Loss of appetite. How is this diagnosed? This condition is diagnosed with a medical history and physical exam. You may also have a stool test to check for viruses or other infections. How is this treated? This condition typically goes away on its own. The focus of treatment is to prevent dehydration and restore lost fluids (rehydration). This condition may be treated with: An oral rehydration solution (ORS) to replace important salts and minerals (electrolytes) in your body. Take this if told by your health care provider. This is a drink that is sold at pharmacies and retail stores. Medicines to help with your symptoms. Probiotic supplements to reduce symptoms of diarrhea. Fluids given through an IV, if dehydration is severe. Older adults and people with other diseases or a weak immune system are at higher risk for dehydration. Follow these instructions at home: Eating and drinking Take an ORS as told by your health care provider. Drink clear fluids in small amounts as you are able. Clear fluids include: ?Water. ?Ice chips. ?Diluted fruit juice. ?Low-calorie sports drinks. Drink enough fluid to keep your urine pale yellow. Eat small amounts of healthy foods every 3 4 hours as you are able. This may include whole grains, fruits, vegetables, lean meats, and yogurt. Avoid fluids that contain a lot of sugar or caffeine, such as energy drinks, sports drinks, and soda. Avoid spicy or fatty foods. Avoid alcohol. General instructions Wash your hands often, especially after having diarrhea or vomiting. If soap and water are not available, use hand operations general agent. Make sure that all people in your household wash their hands well and often. Take qhou-jkb-yqymyqi and prescription medicines only as told by your health care provider. Rest at home while you recover. Watch your condition for any changes. Take a warm bath to relieve any burning or pain from frequent diarrhea episodes. Keep all follow-up visits. This is important. Contact a health care provider if you: Cannot keep fluids down. Have symptoms that get worse. Have new symptoms. Feel light-headed or dizzy. Have muscle cramps. Get help right away if you: Have chest pain. Have trouble breathing or you are breathing very quickly. Have a fast heartbeat. Feel extremely weak or you faint. Have a severe headache, a stiff neck, or both. Have a rash. Have severe pain, cramping, or bloating in your abdomen. Have skin that feels cold and clammy. Feel confused. Have pain when you urinate. Have signs of dehydration, such as: ?Dark urine, very little urine, or no urine. ?Cracked lips. ?Dry mouth. ?Sunken eyes. ?Sleepiness. ?Weakness. Have signs of bleeding, such as: ?Seeing blood in your vomit. ?Having vomit that looks like coffee grounds. ?Having bloody or black stools or stools that look like tar. These symptoms may be an emergency. Get help right away. Call 911. Do not wait to see if the symptoms will go away. Do not drive yourself to the hospital. Summary Viral gastroenteritis is also known as the stomach flu. It can cause sudden watery diarrhea, fever, and vomiting. This condition can be passed from person to person very easily (is contagious). Take an oral rehydration solution (ORS) if told by your health care provider. This is a drink that is sold at pharmacies and retail stores. Wash your hands often, especially after having diarrhea or vomiting. If soap and water are not available, use hand operations general agent. This information is not intended to replace advice given to you by your health care provider. Make sure you discuss any questions you have with your health care provider. Document Revised: 12/21/2021 Document Reviewed: 12/21/2021 [employer] Patient Education 2022 [employer]. Follow Up Care 02/10/2023 11:48:53 With:Katelyn Randolph Address: [address] [place], [place] [id number] Business (1) When:02/13/2023 13:08:33 [facility] 02-10-2023 Evaluation + Plan note Extrac fanta from: Title:ED Note Author:Rober Solorzano PA-C te:02/10/23 Diarrhea, unspecified (R19.7 : Diarrhea, unspecified) Nausea vomiting and diarrhea (R11.2: Nausea with vomiting, unspecified) Orders: ondansetron, 4 mg = 1 tab(s), Oral, TID, # 15 tab(s), Refills(s) 0, Pharmacy: [facility]/pharmacy #[id number], 170, cm, 02/10/23 12:01:00 EST, Height/Length Dosing, 71.2, kg, 02/10/23 12:01:00 EST, Weight Dosing Sodium Chloride 0.9% intravenous solution, 1,000 mL, Soln-IV, IV, Once, Stop date 02/10/23 11:54:00 EST, STAT, Start date 02/10/23 11:54:00 EST, Infuse over 61, minute(s) Automated Diff Basic Metabolic Panel Beta hCG Qual CBC w/ Auto Diff ECG 12 Lead Adult eGFR Extra Blue Tube Hepatic Function Panel Lipase Level UA With Cult Reflex Future Appointments Appointment Date:02/14/2023 11:30:00 AM Scheduled Provider:Huang FLORES MD Location:[facility] Appointment Type:Cardiology Follow Up ([facility]) Future Scheduled Tests Radiology* Echo Transthoracic Complete 12/16/22 [facility]10-12-2023 Evaluation + Plan note Future Scheduled Tests Radiology* Echo Transthoracic Complete 12/16/22 [facility]09-11-2023 Hospital Discharge instructions Patient Education 11/15/2022 11:01:25 Breast Tenderness Breast Tenderness Breast tenderness is a common problem for women of all ages, but may also occur in men. Breast tenderness may range from mild discomfort to severe pain. In women, the pain usually comes and goes withthe menstrual cycle, but it can also be constant. Breast tenderness has many possible causes, including hormone changes, infections, and taking certain medicines. You may have tests, such as a mammogram or an ultrasound, to check for any unusual findings. Having breast tenderness usually does not mean that you have breast cancer. Follow these instructions at home: Managing pain and discomfort If directed, put ice to the painful area. To do this: ?Put ice in a plastic bag. ?Place a towel between your skin and the bag. ?Leave the ice on for 20 minutes, 2 3 times a day. Wear a supportive bra, especially during exercise. You may also want to wear a supportive bra whilesleeping if your breasts are very tender. Medicines Take eose-ung-bvyprga and prescription medicines only as told by your health care provider. If the cause of your pain is infection, you may be prescribed an antibiotic medicine. If you were prescribed an antibiotic, take it as told by your health care provider. Do not stop taking the antibiotic even if you start to feel better. Eating and drinking Your health care provider may recommend that you lessen the amount of fat in your diet. You can do this by: ?Limiting fried foods. ?Cooking foods using methods such as baking, boiling, grilling, and broiling. Decrease the amount of caffeine in your diet. Instead, drink more water and choose caffeine-free drinks. General instructions Keep a log of the days and times when your breasts are most tender. Ask your health care provider how to do breast exams at home. This will help you notice if you havean unusual growth or lump. Keep all follow-up visits as told by your health care provider. This is important. Contact a health care provider if: Any part of your breast is hard, red, and hot to the touch. This may be a sign of infection. You are a woman and: ?Not and you have fluid, especially blood or pus, coming out of your nipples. ?Have a new or painful lump in your breast that remains after your menstrual period ends. You have a fever. Your pain does not improve or it gets worse. Your pain is interfering with your daily activities. Summary Breast tenderness may range from mild discomfort to severe pain. Breast tenderness has many possible causes, including hormone changes, infections, and taking certain medicines. It can be treated with ice, wearing a supportive bra, and medicines. Make changes to your diet if told to by your health care provider. This information is not intended to replace advice given to you by your health care provider. Make sure you discuss any questions you have with your health care provider. Document Revised: 07/16/2019 Document Reviewed: 07/16/2019 [employer] Patient Education 2022 [employer]. 11/15/2022 11:01:21 Palpitations, Zwvc-to-Binb Palpitations Palpitations are feelings that your heartbeat is not normal. Your heartbeat may feel like it is: Uneven (irregular). Faster than normal. Fluttering. Skipping a beat. This is usually not a serious problem. However, a doctor will do tests and check your medical history to make sure that you do not have a serious heart problem. Follow these instructions at home: Watch for any changes in your condition. Tell your doctor about any changes. Take these actions to help manage your symptoms: Eating and drinking Follow instructions from your doctor about things to eat and drink. You may be told to avoid these things: Drinks that have caffeine in them, such as coffee, tea, soft drinks, and energy drinks. Chocolate. Alcohol. Diet pills. Lifestyle Try to lower your stress. These things can help you relax: ?Yoga. ?Deep breathing and meditation. ?Guided imagery. This is using words and images to create positive thoughts. ?Exercise, including swimming, jogging, and walking. Tell your doctor if you have more abnormal heartbeats when you are active. If you have chest pain or feel short of breath with exercise, do not keep doing the exercise until you are seen by your doctor. ?Biofeedback. This is using your mind to control things in your body, such as your heartbeat. Get plenty of rest and sleep. Keep a regular bed time. Do not use drugs, such as cocaine or ecstasy. Do not use marijuana. Do not smoke or use any products that contain nicotine or tobacco. If you need help quitting, ask your doctor. General instructions Take mqza-mmn-xhsnhae and prescription medicines only as told by your doctor. Keep all follow-up visits. You may need more tests if palpitations do not go away or get worse. Contact a doctor if: You keep having fast or uneven heartbeats for a long time. Your symptoms happen more often. Get help right away if: You have chest pain. You feel short of breath. You have a very bad headache. You feel dizzy. You faint. These symptoms may be an emergency. Get help right away. Call your local emergency services (911 int [place] Do not wait to see if the symptoms will go away. Do not drive yourself to the hospital. Summary Palpitations are feelings that your heartbeat is uneven or faster than normal. It may feel like your heart is fluttering or skipping a beat. Avoid food and drinks that may cause this condition. These include caffeine, chocolate, and alcohol. Try to lower your stress. Do not smoke or use drugs. Get help right away if you faint, feel dizzy, feel short of breath, have chest pain, or have a verybad headache. This information is not intended to replace advice given to you by your health care provider. Make sure you discuss any questions you have with your health care provider. Document Revised: 07/15/2021 Document Reviewed: 07/15/2021 [employer] Patient Education 2022 [employer]. Follow Up Care 11/15/2022 09:32:35 With:Katelyn Mora FAM, MED Address:Unknown When: Unknown [facility] 08-30-2023 Hospital Discharge instructions Patient Education 11/03/2022 11:03:46 Cervical Sprain, Hkvv-ca-Iffn Cervical Sprain A cervical sprain is also called a neck sprain. It is a stretch or tear in one or more ligaments inthe neck. Ligaments are tissues that connect bones to each other. Neck sprains can be mild, bad, or very bad. A very bad sprain in the neck can cause the bones in the neck to be unstable. This can damage the spinal cord. It can also cause serious problems in the brain, spinal cord, and nerves (nervous system). Most neck sprains heal in 4 6 weeks. It can take more or less time depending on: What caused the injury. The amount of injury. What are the causes? Neck sprains may be caused by trauma, such as: An injury from an accident in a vehicle such as a car or boat. A fall. The head and neck being moved front to back or side to side all of a sudden (whiplash injury). Mild neck sprains may be caused by wear and tear over time. What increases the risk? The following factors may make you more likely to develop this condition: Taking part in activities that put you at high risk of hurting your neck. These include: ?Contact sports. ?Car racing. ?Gymnastics. ?Diving. Taking risks when driving or riding in a vehicle such as a car or boat. Arthritis caused by wear and tear of the joints in the spine. The neck not being very strong or flexible. Having had a neck injury in the past. Poor posture. Spending a lot of time in certain positions that put stress on the neck. This may be from sitting at a computer for a long time. What are the signs or symptoms? Symptoms of this condition include: Your neck, shoulders, or upper back feeling: ?Painful or sore. ?Stiff. ?Tender. ?Swollen. ?Hot, or like it is burning. Sudden tightening of neck muscles (spasms). Not being able to move the neck very much. Headache. Feeling dizzy. Feeling like you may vomit, or vomiting. Having a hand or arm that: ?Feels weak. ?Loses feeling (feels numb). ?Tingles. You may get symptoms right away after injury, or you may get them over a few days. In some cases, symptoms may go away with treatment and come back over time. How is this treated? This condition is treated by: Resting your neck. Icing the part of your neck that is hurt. Doing exercises to restore movement and strength to your neck (physical therapy). If there is no swelling, you may use heat therapy 2 3 [address] after the injury took place. If your injury is very bad, treatment may also include: Keeping your neck in place for a length of time. This may be done using: ?A neck collar. This supports your chin and the back of your head. ?A cervical traction device. This is a sling that holds up your head. The sling removes weight and pressure from your neck. It may also help to relieve pain. Medicines that help with: ?Pain. ?Irritation and swelling (inflammation). Medicines that help to relax your muscles (muscle relaxants). Surgery. This is rare. Follow these instructions at home: Medicines Take frmh-zya-jyralgh and prescription medicines only as told by your doctor. Ask your doctor if the medicine prescribed to you: ?Requires you to avoid driving or using heavy machinery. ?Can cause trouble pooping (constipation). You may need to take these actions to prevent or treat trouble pooping: ?Drink enough fluid to keep your pee (urine) pale yellow. ?Take olsm-ruv-sclacfx or prescription medicines. ?Eat foods that are high in fiber. These include beans, whole grains, and fresh fruits and vegetables. ?Limit foods that are high in fat and sugar. These include fried or sweet foods. If you have a neck collar: Wear it as told by your doctor. Do not take it off unless told. Ask your doctor before adjusting your collar. If you have long hair, keep it outside of the collar. Ask your doctor if you may take off the collar for cleaning and bathing. If you may take off the collar: ?Follow instructions about how to take it off safely. ?Clean it by hand with mild soap and water. Let it air-dry fully. ?If your collar has pads that you can take out: ?Take the pads out every 1 2 days. ?Wash them by hand with soap and water. ?Let the pads air-dry fully before you put them back in the collar. ?Tell your doctor if your skin under the collar has irritation or sores. Managing pain, stiffness, and swelling Use a cervical traction device, if told by your doctor. If told, put ice on the affected area. To do this: ?Put ice in a plastic bag. ?Place a towel between your skin and the bag. ?Leave the ice on for 20 minutes, 2 3 times a day. If told, put heat on the affected area. Do this before exercise or as often as told by your doctor.Use the heat source that your doctor recommends, such as a moist heat pack or a heating pad. ?Place a towel between your skin and the heat source. ?Leave the heat on for 20 30 minutes. ?Take the heat off if your skin turns bright red. This is very important if you cannot feel pain, heat, or cold. You may have a greater risk of getting burned. Activity Do not drive while wearing a neck collar. If you do not have a neck collar, ask if it is safe to drive while your neck heals. Do not lift anything that is heavier than 10 lb (4.5 kg), or the limit that you are told, until your doctor tells you that it is safe. Rest as told by your doctor. Do exercises as told by your doctor or physical therapist. Return to your normal activities as told by your doctor. Avoid positions and activities that make you feel worse. Ask your doctor what activities are safe for you. General instructions Do not use any products that contain nicotine or tobacco, such as cigarettes, e- cigarettes, and chewing tobacco. These can delay healing. If you need help quitting, ask your doctor. Keep all follow-up visits as told by your doctor or physical therapist. This is important. How is this prevented? To prevent a neck sprain from happening again: Practice good posture. Adjust your workstation to help you do this. Exercise regularly as told by your doctor or physical therapist. Avoid activities that are risky or may cause a neck sprain. Contact a doctor if: Your symptoms get worse. Your symptoms do not get better after 2 weeks of treatment. Your pain gets worse. Medicine does not help your pain. You have new symptoms that you cannot explain. Your neck collar gives you sores on your skin or bothers your skin. Get help right away if: You have very bad pain. You get any of the following in any part of your body: ?Loss of feeling. ?Tingling. ?Weakness. You cannot move a part of your body. You have neck pain and either of these: ?Very bad dizziness. ?A very bad headache. Summary A cervical sprain is also called a neck sprain. It is a stretch or tear in one or more ligaments inthe neck. Ligaments are tissues that connect bones. Neck sprains may be caused by trauma, such as an injury or a fall. You may get symptoms right away after injury, or you may get them over a few days. Neck sprains may be treated with rest, heat, ice, medicines, exercise, and surgery. This information is not intended to replace advice given to you by your health care provider. Make sure you discuss any questions you have with your health care provider. Document Revised: 10/31/2019 Document Reviewed: 10/31/2019 [employer] Patient Education 2022 [employer] Follow Up Care 11/03/2022 09:13:17 With:Katelyn Mora FAM, MED Address:Unknown When: Unknown [facility] 08-29-2023 Evaluation + Plan noteExtracted from: Title:Discharge Note Author:Juan RODAS MD Date: 11/02/22 Discharged to - Home with family care Discharge Diet(s): Regular (11/02/22 08:21:00) Prescriptions aspirin 81 mg Oral EC Tab, 81 mg= 1 tab(s), Oral, Daily Home Prozac, 20 mg, Oral, Daily, Not taking: patient states the last dose was 2-3 months ago With When Contact Information XXXX NONE [place] Additional Instructions: Romario GAMBLE, GARY Dubose Within 2 to 4 weeks [address] [place] [address]- Additional Instructions: Core Measures: St[place] (Cerebrovascular Accident) [facility] [place] Extracted from: Title:Consult Note- Neurology Author:Sailaja Villarreal RN Date:11/02/22 Reason for consult: Focal neurological deficits after chiropractic neck manipulation ASSESSMENT: 1. Syndrome of right facial paresthesias, right upper extremity paresthesias, and feelings of disorientation all starting with high velocity cervical manipulation by a chiropractor. No evidence of intra or extracranial arterial dissection on CTA imaging. No evidence of any ischemia to brain or brainstem on MRI. Cervical spinal cord and neuroforaminal spaces look unremarkable on MRI. Has chronic tendency to wake up with right upper extremity paresthesias depending on neck position during sleep; consider intermittent nerve impingement in a neuroforaminal space with side bending as this would not be demonstrated with typical neck positioning on MRI, and consider her presenting symptoms to be a variant of this. 2. Chronic migraines without aura, happening 15+ days per month. Typically right retro-orbital. Sometimes seemingly cervicogenic component. 3. She had orthostatic intolerance during high school. Not much of an issue anymore. Has siblings that are diagnosed with POTS and has a father diagnosed with a dysautonomia syndrome. So long as this is not causing symptoms I suggested we not pursue further diagnostic work-up at this time. PLAN: 1. Out of an abundance of caution, I would have her continue aspirin 81 mg daily for 1 week 2. Needs outpatient neurology follow-up regarding her frequent migraines; she is in the process of weaning her infant from breast-feeding and will set up an appointment after that, as I told her medication options for prevention of her migraines will be limited for the time being 3. I generally recommend against high velocity cervical manipulation 4. Okay for discharge 1. Paresthesia of right upper extremity (R20.2: Paresthesia of skin) 2. Bipolar disorder (F31.9: Bipolar disorder, unspecified) 3. No contraindication to deep vein thrombosis (DVT) prophylaxis (Z78.9: Other specified health status) Extracted from: Title:Admission H & P Author:Juan RODAS MD Date :11/01/22 1. Paresthesia of right uppe r extremity (R20.2: Paresthesia of skin) - rule out CVA or radiculopathy - monitor on telemetry - start ASA po q day, check lipid profile and TSH - ordered MRI brain and MRI cervical spine - PT/OT ordered - consult neurology 2. Bipolar disorder (F31.9: Bipolar disorder, unspecified) - stable - continue PO prozac 3. No contraindication to deep vein thrombosis (DVT) prophylaxis (Z78.9: Other specified health status) - ordered SCDs, start heparin subcutaneous bid pt will be admitted for observation possible discharge in next 24 hours Orders: acetaminophen, 650 mg = 2 tab(s), Tab, Oral, q6hr PRN Pain, Routine, Start date 11/01/22 16:19:00 EDT Al hydroxide/Mg hydroxide/simethicone, 30 mL, Susp-Oral, Oral, q6hr PRN Indigestion, Routine, Start date 11/01/22 16:19:00 EDT alprazolam, 0.25 mg = 1 tab(s), Tab, Oral, q6hr PRN Anxiety, Routine, Start date 11/01/22 16:20:00 EDT aspirin, 81 mg = 1 tab(s), Tab-EC, Oral, Daily, Routine, Start date 11/02/22 9:00:00 EDT heparin, 5,000 unit(s) = 1 mL, Injection, SubCutaneous, q12hr, Routine, Start date 11/01/22 17:00:00 EDT magnesium hydroxide, 30 mL, Susp-Oral, Oral, q6hr PRN Constipation, Routine, Start date 11/01/22 16:19:00 EDT ondansetron, 4 mg = 2 mL, Injection, IV Push, q6hr PRN Nausea, Routine, Start date 11/01/22 16:19:00 EDT Ambulate with Assistance Below the Knee Intermittent Pneumatic Compression Device Cardiac Monitoring Communication Order Communication Order Physician to Nursing Consult to Neurology Dysphagia Screen Echo w/ Saline Bubbles Evaluate Need For Continued Telemetry HgbA1c Incentive Spirometry Intake and Output Lipid Panel MRI Brain w/o Contrast MRI Spine Cervical w/o Contrast Neurological Assessment Neurological Assessment Notify Provider Vital Signs Notify Provider Vital Signs Occupational Therapy Evaluate Patient, Develop a Plan of Care and Implement Plan Oxygen Protocol Physical Therapy Evaluate Patient, Develop a Plan of Care and Implement Plan Place in Status Pulse Oximetry Stroke Education Stroke Quality Measures TSH With T4fr Reflex Vital Signs Weight Extracted from: Title:ED Note Author:Karie Newman PA-C ate:11/01/22 1. Paresthesia of right uppe r extremity (R20.2: Paresthesia of skin) 2. Traumatic injury of neck (S19.9XXA: Unspecified injury of neck, initial encounter) Orders: acetaminophen, 975 mg = 3 tab(s), Tab, Oral, Once, Stop date 11/01/22 15:01:00 EDT, STAT, Start date 11/01/22 15:01:00 EDT, 11/01/22 15:01:00 EDT aspirin, 325 mg = 1 tab(s), Tab-EC, Oral, Once, Stop date 11/01/22 15:28:00 EDT, STAT, Start date 11/01/22 15:28:00 EDT, 11/01/22 15:28:00 EDT ketorolac, 30 mg = 1 mL, Injection, IV Push, Once, Stop date 11/01/22 15:02:00 EDT, STAT, Start date 11/01/22 15:02:00 EDT, 11/01/22 15:02:00 EDT Sodium Chloride 0.9% intravenous solution 1,000 mL, 1,000 mL, IV, 1,000 mL/hr, STAT, Start date 11/01/22 15:02:00 EDT, 1 hour(s), Total volume (mL): 1,000, 73 kg, 1.87, m2 Automated Diff Basic Metabolic Panel CBC w/ Auto Diff [place] Stroke Scale Communication Order Physician to Nursing Continuous Pulse Oximetry CT Head or Brain w/o Contrast CTA Head CTA Neck ECG 12 Lead Adult ED Cardiac Monitoring eGFR Extra SST Tube Focused Assessment - Neurological NIH Stroke Scale PT & PTT Routine Capillary Glucose POC Saline Lock Insert Stroke Quality Measures Troponin 0 Hr. U Beta Hcg Qual UA With Cult Reflex Vital Signs Future Appointments Appointment Date:11/09/2022 11:20:00 AM Scheduled Provider:Katelyn Mora Location:[facility] Appointment Type:[facility]08-29-2023 NotePT Evaluation done this date. Pt. with on AM-PAC this date. No further PT needs.[facility] 11-02-2022 Hospital Discharge instructions Patient Education 11/02/2022 09:32:17 Core Measures: Stroke (Cerebrovascular Accident) [facility] [place] Stroke (Cerebrovascular Accident) A stroke is acute of brain tissue, and it is a neurologic emergency. A stroke can cause permanent loss of function of the central nervous system (brain). If the symptoms of a stroke end withoutcomplications in 24 hours, it is diagnosed as a transient ischemic attack (TIA). If the symptoms are not resolved within 24 hours, it is defined as a stroke. CAUSES A stroke is caused by a decrease of oxygen supply to an area of your brain. It is usually the result of a small blood clot or hardening of the arteries. Blockages in, or damage to, the carotid arteries leading to the brain can also cause a stroke. Bleeding in the brain can cause, or accompany, a stroke. SYMPTOMS These symptoms usually develop suddenly (or may be newly present upon awakening from sleep): Loss of vision. Double vision. Confusion. Numbness or weakness on one side of the face or body. Inability to speak (aphasia). DIAGNOSIS Your caregiver can often determine the presence or absence of a stroke based on your symptoms, history, and examination. A CT scan of the brain is usually performed to confirm the stroke, look for causes, and determine the severity. Other tests may be done to find the cause of the stroke, including: An EKG and heart monitoring. An echocardiogram (ultrasound evaluation of the heart). An ultrasound evaluation of your carotid arteries. Determination of blood oxygen level and blood tests. PREVENTION The likelihood of a stroke can be decreased by appropriate treatment of high blood pressure, high cholesterol, diabetes, and by stopping smoking. RISK FACTORS: If you have been told by your doctor or nurse practitioner that you have any of the following risk factors for stroke, work with your health care technician to control them. High Blood Pressure: High blood pressure is one of the main causes of stroke. It is the most important risk factor to control. Take your blood pressure medication, lose weight, increase your activity, and limit your salt intake to help control your blood pressure.Take your your blood pressure and write it down and then take them to your next doctor's appointment. Smoking: If you smoke: QUIT! We can help. Please call [facility] at [phone] ([facility] [place] or [phone], ext. [phone] Diabetes: Work with your healthcare professional to keep your blood sugar under control. Check yourblood sugar and take the results to your next doctor's visit. Take your medications as directed. Eating a healthy diet and exercising will also help keep your diabetes under control. For information on [facility] please call, . Carotid or other Artery Diseases: The carotid arteries in your neck carry blood to the brain. A stroke can be caused by a blood clot blocking an artery that has been damaged by a fatty buildup insidethe artery wall. Discuss ways to manage this with your health care provider. Atrial Fibrillation (A Fib): In A fib, your heart does not have a normal beat. This may allow clotsto form and puts you at a greater risk for having a stroke. Work with your health care provider to control your A fib. Your doctor may order special medication that helps prevent clots from forming. High blood cholesterol or high blood fats: High cholesterol increases your risk of stroke. Exerciseregularly, but talk to your health care provider first. A diet low in fat and cholesterol can help.If you have any questions about a low fat, low cholesterol diet, you can call our [facility] fit model at [phone] Ext. [phone]. The goal for total cholesterol is less than 200, and for LDL or thebad cholesterol is less than 100. Lifestyle Management: You increase your risk of stroke if you are overweight or obese, are not veryactive, or drink too much alcohol. Enjoy a diet rich in fruits and vegetables. Exercise regularly and drink alcohol in moderation or no more than two drinks a day for men and no more than one drink aday for non- women, or don't drink at all. This will help decrease your risk of stroke. Oral Contraceptives: Taking control pills or the pill can be a risk factor for stroke especially if you smoke. Discuss using the oral contraceptives and your risk of stroke with your health care technician. TREATMENT TIME IS OF THE ESSENCE! Medications to dissolve a blood clot can only be used within four and a half hours of the onset of symptoms. After that time, treatment of stroke depends on duration of symptoms, severity, and cause. Medications and diet measures may be used to address diabetes, high blood pr essure, and other risk factors. Physical therapy, speech therapy, and occupational therapy specialists will assess you and work to improve any functions impaired by the stroke. Measures will be takento prevent short and custodial complications, including aspiration pneumonia, blood clots in the leg s, bedsores, and falls. HOME CARE INSTRUCTIONS Care at home after a stroke can be complicated. Medications Blood thinners may be used to prevent another stroke. Blood thinners need to be used exactly as instructed. Medicines may also be used to control risk factors for a stroke. Be sure you understand all your medication instructions. It is very important to not run out of your medicine. Getmore while you still have a one-week supply. Do not stop taking your medicine without speaking to your healthcare professional. Take all of your medications or an updated list of your medications to all of your doctor's appointments. Physical, occupational, and speech therapy Ongoing therapy is often necessary to maximize recovery after a stroke. If you have been advised to use a walker or a cane, use it at all times. Be sure youkeep your therapy appointments. Diet Certain diets may be prescribed to address high blood pressure, high cholesterol, or diabetes.Foods may need to be a special consistency (soft, pureed, small bites) to avoid food going into your lungs or choking. Home safety A safe home environment is important to reduce the risk of falls. Your caregiver may arrange for specialists to evaluate your home. Grab bars in the bedroom and bathroom are often important. Your caregiver may arrange for special equipment to be used at home, such as raised toilets and a seat for the shower. It s important to know and control your risk factors, but it is also important to recognize the signs and symptoms of stroke/TIA and know what to do: Call 911 if any of these things happen: Sudden numbness or weakness of the face, arm, or leg especially on one side of the body. Sudden confusion, trouble speaking, or understanding. Sudden trouble seeing in one or both eyes. Sudden trouble walking, dizziness, loss of balance or coordination Sudden severe headache with no known cause * It is very important for you to follow-up with your Primary Care Doctor and your Neurologist after you go home. Make sure that you keep your doctor visits. Remember: TIME LOST is BRAIN LOST Resources: for more information on strokes, log onto [place] [place] or www.strokeassociation.org or call the [place] [employer] at . Revised 03/2018 Follow Up Care 11/01/2022 13:31:49 With:Katelyn Randolph Address: [address] [place] [address]- Business (1) When:11/05/2022 11:40:00 With:Evelyn Doss MD, NEU Address: [address] [place] [address]- When:11/30/2022 13:40:00 Comments:Neurology appt will be on 11/30/2022 at 1:40 pm with Kaylee Aldridge in the [place] OFFICEPlease bring insurance card, photo ID, and any discharge papers you have from the [facility]08-29-2023 NoteFisher [facility] Pratt HospitalComment on above:Result Comment: Electronically Signed By: Juan RODAS MD\.br\Date and Time Signed: 11/02/22 09:26 [id number] ErnestoDayton Va Medical CenterComment on above:Result Comment: Electronically Signed By: Juan RODAS MD\.br\Date and Time Signed: 11/01/22 16:37 [id number] Evaluation + Plan noteExtracted from: Title:ED Note Author:Winnie Paula DO Date :09/29/22 Acute headache (R51.9: Heada montserrat, unspecified) Orders: ketorolac, 30 mg = 1 mL, Injection, IntraMuscular, Once, Stop date 09/29/22 0:10:00 EDT, STAT, Start date 09/29/22 0:10:00 EDT, 09/29/22 0:10:[address] Head or Brain w/o Contrast [facility]07-26-2023 Hospital Discharge instructions Patient Education 09/29/2022 01:19:29 General Headache Without Cause, Tqzz-mu-Dabl General Headache Without Cause A headache is pain or discomfort you feel around the head or neck area. There are many causes and types of headaches. In some cases, the cause may not be found. Follow these instructions at home: Watch your condition for any changes. Let your doctor know about them. Take these steps to help with your condition: Managing pain Take seev-del-urgrwsh and prescription medicines only as told by your doctor. This includes medicines for pain that are taken by mouth or put on the skin. Lie down in a dark, quiet room when you have a headache. If told, put ice on your head and neck area: ?Put ice in a plastic bag. ?Place a towel between your skin and the bag. ?Leave the ice on for 20 minutes, 2 3 times per day. ?Take off the ice if your skin turns bright red. This is very important. If you cannot feel pain, heat, or cold, you have a greater risk of damage to the area. If told, put heat on the affected area. Use the heat source that your doctor recommends, such as a moist heat pack or a heating pad. ? Place a towel between your skin and the heat source. ?Leave the heat on for 20 30 minutes. ?Take off the heat if your skin turns bright red. This is very important. If you cannot feel pain, heat, or cold, you have a greater risk of getting burned. Keep lights dim if bright lights bother you or make your headaches worse. Eating and drinking Eat meals on a regular schedule. If you drink alcohol: ?Limit how much you have to: ?0 1 drink a day for women who are not . ? 0 2 drinks a day for men. ?Know how much alcohol is in a drink. In the [place] one drink equals one 12 oz bottle of beer (355 mL), one 5 oz glass of wine (148 mL), or one 1 oz glass of hard liquor (44 mL). Stop drinking caffeine, or drink less caffeine. General instructions Keep a journal to find out if certain things bring on headaches. For example, write down: ?What you eat and drink. ?How much sleep you get. ?Any change to your diet or medicines. Get a massage or try other ways to relax. Limit stress. Sit up straight. Do not tighten (tense) your muscles. Do not smoke or use any products that contain nicotine or tobacco. If you need help quitting, ask your doctor. Exercise regularly as told by your doctor. Get enough sleep. This often means 7 9 hours of sleep each night. Keep all follow-up visits. This is important. Contact a doctor if: Medicine does not help your symptoms. You have a headache that feels different than the other headaches. You feel like you may vomit (nauseous) or you vomit. You have a fever. Get help right away if: Your headache: ?Gets very bad quickly. ?Gets worse after a lot of physical activity. You have any of these symptoms: ?You continue to vomit. ?A stiff neck. ?Trouble seeing. ?Your eye or ear hurts. ?Trouble speaking. ?Weak muscles or you lose muscle control. ?You lose your balance or have trouble walking. You feel like you will pass out (faint) or you pass out. You are mixed up (confused). You have a seizure. These symptoms may be an emergency. Get help right away. Call your local emergency services (911 int [place] Do not wait to see if the symptoms will go away. Do not drive yourself to the hospital. Summary A headache is pain or discomfort that is felt around the head or neck area. There are many causes and types of headaches. In some cases, the cause may not be found. Keep a journal to help find out what causes your headaches. Watch your condition for any changes. Let your doctor know about them. Contact a doctor if you have a headache that is different from usual, or if medicine does not help your headache. Get help right away if your headache gets very bad, you throw up, you have trouble seeing, you loseyour balance, or you have a seizure. This information is not intended to replace advice given to you by your health care provider. Make sure you discuss any questions you have with your health care provider. Document Revised: 07/22/2021 Document Reviewed: 07/22/2021 [employer] Patient Education 2022 [employer]. Follow Up Care 09/28/2022 23:42:21 With:Wilbert Viveros Address: [address] [facility] [place] [address]- Business (1) When:10/02/2022 With:KATELYN ROBERTS Address: [address] [facility] [address] [place] [address] Business (1) When:10/02/2022 Comments:Take ibuprofen, Tylenol every 6 hours as needed for pain. Please follow-up with your primary care doctor in the next 2 to 3 days. Please return to the ED for any new or worsening symptoms. [facility]04-28-2023 Hospital Discharge instructions Patient Education 07/02/2022 12:44:58 Bacterial Conjunctivitis, Adult Bacterial Conjunctivitis, Adult Bacterial conjunctivitis is an infection of the clear membrane that covers the white part of the eye and the inner surface of the eyelid (conjunctiva). When the blood vessels in the conjunctiva become inflamed, the eye becomes red or pink. The eye often feels irritated or itchy. Bacterial conjunctivitis spreads easily from person to person (is contagious). It also spreads easily from one eye to the other eye. What are the causes? This condition is caused by bacteria. You may get the infection if you come into close contact with: A person who is infected with the bacteria. Items that are contaminated with the bacteria, such as a face towel, contact lens solution, or eye makeup. What increases the risk? You are more likely to develop this condition if: You are exposed to other people who have the infection. You wear contact lenses. You have a sinus infection. You have had a recent eye injury or surgery. You have a weak body defense system (immune system). You have a medical condition that causes dry eyes. What are the signs or symptoms? Symptoms of this condition include: Thick, yellowish discharge from the eye. This may turn into a crust on the eyelid overnight and cause your eyelids to stick together. Tearing or watery eyes. Itchy eyes. Burning feeling in your eyes. Eye redness. Swollen eyelids. Blurred vision. How is this diagnosed? This condition is diagnosed based on your symptoms and medical history. Your health care provider may also take a sample of discharge from your eye to find the cause of your infection. How is this treated? This condition may be treated with: Antibiotic eye drops or ointment to clear the infection more quickly and prevent the spread of infection to others. Antibiotic medicines taken by mouth (orally) to treat infections that do not respond to drops or ointments or that last longer than 10 days. Cool, wet cloths (cool compresses) placed on the eyes. Artificial tears applied 2 6 times a day. Follow these instructions at home: Medicines Take or apply your antibiotic medicine as told by your health care provider. Do not stop using the antibiotic, even if your condition improves, unless directed by your health care provider. Take or apply fxfi-gmp-mogjrct and prescription medicines only as told by your health care provider. Be very careful to avoid touching the edge of your eyelid with the eye-drop bottle or the ointment tube when you apply medicines to the affected eye. This will keep you from spreading the infection to your other eye or to other people. Managing discomfort Gently wipe away any drainage from your eye with a warm, wet washcloth or a cotton ball. Apply a clean, cool compress to your eye for 10 20 minutes, 3 4 times a day. General instructions Do not wear contact lenses until the inflammation is gone and your health care provider says it is safe to wear them again. Ask your health care provider how to sterilize or replace your contact lenses before you use them again. Wear glasses until you can resume wearing contact lenses. Avoid wearing eye makeup until the inflammation is gone. Throw away any old eye cosmetics that may be contaminated. Change or wash your pillowcase every day. Do not share towels or washcloths. This may spread the infection. Wash your hands often with soap and water for at least 20 seconds and especially before touching your face or eyes. Use paper towels to dry your hands. Avoid touching or rubbing your eyes. Do not drive or use heavy machinery if your vision is blurred. Contact a health care provider if: You have a fever. Your symptoms do not get better after 10 days. Get help right away if: You have a fever and your symptoms suddenly get worse. You have severe pain when you move your eye. You have facial pain, redness, or swelling. You have a sudden loss of vision. Summary Bacterial conjunctivitis is an infection of the clear membrane that covers the white part of the eye and the inner surface of the eyelid (conjunctiva). Bacterial conjunctivitis spreads easily from eye to eye and from person to person (is contagious). Wash your hands often with soap and water for at least 20 seconds and especially before touching your face or eyes. Use paper towels to dry your hands. Take or apply your antibiotic medicine as told by your health care provider. Do not stop using the antibiotic even if your condition improves. Contact a health care provider if you have a fever or if your symptoms do not get better after 10 days. Get help right away if you have a sudden loss of vision. This information is not intended to replace advice given to you by your health care provider. Make sure you discuss any questions you have with your health care provider. Document Revised: 06/03/2021 Document Reviewed: 06/03/2021 [employer] Patient Education 2022 [employer]. Follow Up Care 07/02/2022 09:16:57 With:KATELYN ROBERTS CNP Address: [facility] [address] [place] [address] When: Unknown [facility] 03-09-2023 Hospital Discharge instructions Patient Education 05/13/2022 11:29:15 Antibiotic Resistance Antibiotic Resistance Antibiotics are medicines used to treat infections that are caused by bacteria. Antibiotic resistance means that the medicine no longer works against the bacteria. Resistance can develop if you use antibiotics the wrong way. When antibiotics are given in response to illnesses caused by viruses, like colds or the flu, many normal bacteria in the body are killed. Some bacteria that are not killed may develop resistance to the antibiotic. These bacteria may grow and cause infections that are resistant to some other antibiotics. If this happens, the bacteria can continue to grow and cause infection. What are the causes? Antibiotic resistance happens when bacteria come into contact with an antibiotic over and over again. Over time, the bacteria become resistant to the antibiotic. What increases the risk? This condition is more likely to develop in people who: Are repeatedly given antibiotics to treat viral infections. Do not take their antibiotic medicine as prescribed, such as not finishing all of the medicine. Need to take antibiotics often because of a long-term medical condition. Take medicines that weaken their body's defense system (immune system). Have surgery. Are elderly. Need a procedure that replaces some of the work that healthy kidneys do (dialysis). Have an organ transplant. Are being treated for cancer. Have a type of infection that is more likely to be caused by resistant bacteria. These include certain: ?Skin infections. ?STIs (sexually transmitted infections). ?Respiratory infections. ?Infections of the lining of the brain and spinal cord (meningitis). ?Gastrointestinal infections. Eat foods from animals that were treated with antibiotics. Antibiotic-resistant bacteria can be passed through the food. Live with or care for someone with an antibiotic-resistant infection. Are hospitalized for a long time or live in a long-term care facility. What are the signs or symptoms? The main symptom of this condition is having an infection that does not improve with normal treatment. The specific signs and symptoms that you have will depend on the type of infection, but they mayinclude: A fever. Warmth, redness, and tenderness around a wound or incision. Brown, yellow, or green drainage from a wound or incision. A bad smell coming from a wound or incision. Nausea, vomiting, and abdominal pain. How is this diagnosed? This condition may be diagnosed by: Your medical history. Your health care provider may suspect antibiotic resistance if your conditiondoes not improve after you have been treated for an infection. You may also have other tests, including: ?Analysis of a fluid or stool sample. This is done to identify bacteria under a microscope and determine what type of antibiotic will work against them (culture and sensitivity). ?Other blood tests and imaging tests. These are done to check if your infection has spread or has become more serious. How is this treated? Treatment for this condition depends on the nature of the specific infection. Treatment may include oral antibiotics that kill more types of bacteria (broad spectrum). Serious antibiotic-resistant infections may need to be treated in the hospital. In severe cases, this may include: ?Surgery to remove infected or damaged tissue. ?Antibiotics or other medicines given through an IV tube. Follow these instructions at home: Taking antibiotics correctly Understand when antibiotics are needed and when they are not needed. Do not ask for an antibiotic prescription if you have been diagnosed with a viral illness. Antibiotic medicine will not make your illness go away faster. Common viral illnesses include an ear infection, a sinus infection, the stomach flu, or bronchitis. Do not take antibiotics that are left over from a previous prescription. Do not take antibiotics that were prescribed for someone else. If you are prescribed an antibiotic: ?Take it exactly as told by your health care provider. Do not stop taking the medicine even if you start to feel better. ?If you have been taking it for more than 10 days, ask your health care provider or pharmacist if you should keep taking it. Do not save unused antibiotics to use at a later date. Get rid of unused medicine as told by your health care provider or pharmacist. Preventing infection If you have an infection, avoid close contact with people around you. Avoid using personal items that are used by other people, such as towels, razors, or bedding. Regularly disinfect doorknobs, food preparation surfaces, and bathrooms with bleach-containing products or solutions. Wash your hands with soap and water: ?After using the bathroom. ?Before and after caring for a wound or incision. ?Before and after preparing food. General instructions Stay up-to-date on vaccinations. Many vaccines prevent illnesses that are treated with antibiotics. Contact a health care provider if: You have a fever or chills. You are taking a new antibiotic and you are not getting better after a few days. You have three or more periods of diarrhea after starting a new antibiotic. You have increased warmth, redness, or tenderness around a wound. You have brown, yellow, or green drainage from a wound or incision. You have a bad-smelling wound or incision. You have new or worsening nausea, vomiting, or abdominal pain. Get help right away if: You develop a rash. Your mouth or tongue itches. You have a tight feeling in your throat. You have trouble breathing. You have chest pain or tightness. You are dizzy or you faint. This information is not intended to replace advice given to you by your health care provider. Make sure you discuss any questions you have with your health care provider. Document Released: 05/14/2003 Document Revised: 03/08/2018 Document Reviewed: 07/26/2016 [employer] Patient Education 2020 [employer]. 05/13/2022 11:29:12 Upper Respiratory Infection, Adult Upper Respiratory Infection, Adult An upper respiratory infection (URI) is a common viral infection of the nose, throat, and upper airpassages that lead to the lungs. The most common type of URI is the common cold. URIs usually get better on their own, without medical treatment. What are the causes? A URI is caused by a virus. You may catch a virus by: Breathing in droplets from an infected person's cough or sneeze. Touching something that has been exposed to the virus (contaminated) and then touching your mouth, nose, or eyes. What increases the risk? You are more likely to get a URI if: You are very young or very old. It is asuncion or winter. You have close contact with others, such as at a daycare, school, or health care facility. You smoke. You have long-term (chronic) heart or lung disease. You have a weakened disease-fighting (immune) system. You have nasal allergies or asthma. You are experiencing a lot of stress. You work in an area that has poor air circulation. You have poor nutrition. What are the signs or symptoms? A URI usually involves some of the following symptoms: Runny or stuffy (congested) nose. Sneezing. Cough. Sore throat. Headache. Fatigue. Fever. Loss of appetite. Pain in your forehead, behind your eyes, and over your cheekbones (sinus pain). Muscle aches. Redness or irritation of the eyes. Pressure in the ears or face. How is this diagnosed? This condition may be diagnosed based on your medical history and symptoms, and a physical exam. Your health care provider may use a cotton swab to take a mucus sample from your nose (nasal swab). This sample can be tested to determine what virus is causing the illness. How is this treated? URIs usually get better on their own within 7 10 days. You can take steps at home to relieve your symptoms. Medicines cannot cure URIs, but your health care provider may recommend certain medicines to help relieve symptoms, such as: Chwa-par-ylcmoto cold medicines. Cough suppressants. Coughing is a type of defense against infection that helps to clear the respiratory system, so take these medicines only as recommended by your health care provider. Fever-reducing medicines. Follow these instructions at home: Activity Rest as needed. If you have a fever, stay home from work or school until your fever is gone or until your health care provider says you are no longer contagious. Your health care provider may have you wear a face mask to prevent your infection from spreading. Relieving symptoms Gargle with a salt-water mixture 3 4 times a day or as needed. To make a salt- water mixture, completely dissolve 1 tsp of salt in 1 cup of warm water. Use a cool-mist humidifier to add moisture to the air. This can help you breathe more easily. Eating and drinking Drink enough fluid to keep your urine pale yellow. Eat soups and other clear broths. General instructions Take ziow-auu-voptaix and prescription medicines only as told by your health care provider. These include cold medicines, fever reducers, and cough suppressants. Do not use any products that contain nicotine or tobacco, such as cigarettes and e-cigarettes. If you need help quitting, ask your health care provider. Stay away from secondhand smoke. Stay up to date on all immunizations, including the yearly (annual) flu vaccine. Keep all follow-up visits as told by your health care provider. This is important. How to prevent the spread of infection to others URIs can be passed from person to person (are contagious). To prevent the infection from spreading: ?Wash your hands often with soap and water. If soap and water are not available, use hand operations general agent. ?Avoid touching your mouth, face, eyes, or nose. ?Cough or sneeze into a tissue or your sleeve or elbow instead of into your hand or into the air. Contact a health care provider if: You are getting worse instead of better. You have a fever or chills. Your mucus is brown or red. You have yellow or brown discharge coming from your nose. You have pain in your face, especially when you bend forward. You have swollen neck glands. You have pain while swallowing. You have white areas in the back of your throat. Get help right away if: You have shortness of breath that gets worse. You have severe or persistent: ?Headache. ?Ear pain. ?Sinus pain. ?Chest pain. You have chronic lung disease along with any of the following: ?Wheezing. ?Prolonged cough. ?Coughing up blood. ?A change in your usual mucus. You have a stiff neck. You have changes in your: ?Vision. ?Hearing. ?Thinking. ?Mood. Summary An upper respiratory infection (URI) is a common infection of the nose, throat, and upper air passages that lead to the lungs. A URI is caused by a virus. URIs usually get better on their own within 7 10 days. Medicines cannot cure URIs, but your health care provider may recommend certain medicines to help relieve symptoms. This information is not intended to replace advice given to you by your health care provider. Make sure you discuss any questions you have with your health care provider. Document Released: 08/17/2001 Document Revised: 03/01/2019 Document Reviewed: 10/07/2017 [employer] Patient Education 2020 [employer]. Follow Up Care 05/13/2022 09:45:34 With:KATELYN ROBERTS CNP Address: [facility] [address] [place] [address] When: Unknown [facility] 03-08-2023 Hospital Discharge instructions Patient Education 05/11/2022 23:10:48 Upper Respiratory Infection, Adult Upper Respiratory Infection, Adult An upper respiratory infection (URI) is a common viral infection of the nose, throat, and upper airpassages that lead to the lungs. The most common type of URI is the common cold. URIs usually get better on their own, without medical treatment. What are the causes? A URI is caused by a virus. You may catch a virus by: Breathing in droplets from an infected person's cough or sneeze. Touching something that has been exposed to the virus (contaminated) and then touching your mouth, nose, or eyes. What increases the risk? You are more likely to get a URI if: You are very young or very old. It is asuncion or winter. You have close contact with others, such as at a daycare, school, or health care facility. You smoke. You have long-term (chronic) heart or lung disease. You have a weakened disease-fighting (immune) system. You have nasal allergies or asthma. You are experiencing a lot of stress. You work in an area that has poor air circulation. You have poor nutrition. What are the signs or symptoms? A URI usually involves some of the following symptoms: Runny or stuffy (congested) nose. Sneezing. Cough. Sore throat. Headache. Fatigue. Fever. Loss of appetite. Pain in your forehead, behind your eyes, and over your cheekbones (sinus pain). Muscle aches. Redness or irritation of the eyes. Pressure in the ears or face. How is this diagnosed? This condition may be diagnosed based on your medical history and symptoms, and a physical exam. Your health care provider may use a cotton swab to take a mucus sample from your nose (nasal swab). This sample can be tested to determine what virus is causing the illness. How is this treated? URIs usually get better on their own within 7 10 days. You can take steps at home to relieve your symptoms. Medicines cannot cure URIs, but your health care provider may recommend certain medicines to help relieve symptoms, such as: Pkaz-zyk-sjxxlsc cold medicines. Cough suppressants. Coughing is a type of defense against infection that helps to clear the respiratory system, so take these medicines only as recommended by your health care provider. Fever-reducing medicines. Follow these instructions at home: Activity Rest as needed. If you have a fever, stay home from work or school until your fever is gone or until your health care provider says you are no longer contagious. Your health care provider may have you wear a face mask to prevent your infection from spreading. Relieving symptoms Gargle with a salt-water mixture 3 4 times a day or as needed. To make a salt- water mixture, completely dissolve 1 tsp of salt in 1 cup of warm water. Use a cool-mist humidifier to add moisture to the air. This can help you breathe more easily. Eating and drinking Drink enough fluid to keep your urine pale yellow. Eat soups and other clear broths. General instructions Take rncp-dcx-fahmanu and prescription medicines only as told by your health care provider. These include cold medicines, fever reducers, and cough suppressants. Do not use any products that contain nicotine or tobacco, such as cigarettes and e-cigarettes. If you need help quitting, ask your health care provider. Stay away from secondhand smoke. Stay up to date on all immunizations, including the yearly (annual) flu vaccine. Keep all follow-up visits as told by your health care provider. This is important. How to prevent the spread of infection to others URIs can be passed from person to person (are contagious). To prevent the infection from spreading: ?Wash your hands often with soap and water. If soap and water are not available, use hand operations general agent. ?Avoid touching your mouth, face, eyes, or nose. ?Cough or sneeze into a tissue or your sleeve or elbow instead of into your hand or into the air. Contact a health care provider if: You are getting worse instead of better. You have a fever or chills. Your mucus is brown or red. You have yellow or brown discharge coming from your nose. You have pain in your face, especially when you bend forward. You have swollen neck glands. You have pain while swallowing. You have white areas in the back of your throat. Get help right away if: You have shortness of breath that gets worse. You have severe or persistent: ?Headache. ?Ear pain. ?Sinus pain. ?Chest pain. You have chronic lung disease along with any of the following: ?Wheezing. ?Prolonged cough. ?Coughing up blood. ?A change in your usual mucus. You have a stiff neck. You have changes in your: ?Vision. ?Hearing. ?Thinking. ?Mood. Summary An upper respiratory infection (URI) is a common infection of the nose, throat, and upper air passages that lead to the lungs. A URI is caused by a virus. URIs usually get better on their own within 7 10 days. Medicines cannot cure URIs, but your health care provider may recommend certain medicines to help relieve symptoms. This information is not intended to replace advice given to you by your health care provider. Make sure you discuss any questions you have with your health care provider. Document Released: 08/17/2001 Document Revised: 03/01/2019 Document Reviewed: 10/07/2017 [employer] Patient Education 2020 [employer]. Follow Up Care 05/11/2022 20:58:33 With:KATELYN ROBERTS Address: [address] [place] [address] Business (1) When:05/14/2022 Comments:Call the office of your primary care doctor to arrange for follow-up within the above-stated timeframe. Follow-up with your primary care doctor about this ED visit. You should review your labs, imaging, and diagnoses from this ED visit with your primary care physician. If you were prescribed medications you should discuss possible side-effects and drug interactions with your pharmacist. Call 911 or go to the nearest Emergency Department if you develop any new or worsening symptoms.Tylenol and Mucinex for symptoms. [facility]03-07-2023 Evaluation + Plan noteExtracted from: Title:ED Note Author:Quintin Murcia DO Date: Acute upper respiratory infe ction (J06.9: Acute upper respiratory infection, unspecified) Orders: ECG 12 Lead Adult Group A Strep by PCR Rapid Strep w/rfx XR Chest Single View Future Scheduled Tests Radiology* XR Hand 3+ Views Right 04/21/22 [facility]02-15-2023 Evaluation + Plan note Future Scheduled Tests Radiology* XR Hand 3+ Views Right 04/21/22 [facility]12-30-2022 Evaluation + Plan noteExtracted from: Title:ED Note Author:Shannen Ceja PA-C e:03/05/22 1. Flu-like symptoms (R68.89 : Other general symptoms and signs) Orders: fluticasone nasal, 2 spray(s), Nasal, Daily, 16 gram, Refill(s) 0, each nostril, [facility]/pharmacy #[id number], 170, cm, 03/04/22 21:57:00 EST, Height/Length Dosing, 76.1, kg, 03/04/22 21:57:00 EST, Weight Dosing Rapid [place] [place] Resp.syn.virus (Rsv) 26-year-old female presents to the ED complaining of cough, congestion, fever, chills, headache. In the ED patient is afebrile, vital signs are stable, no acute distress. COVID and RSV are negative. Unable to test for flu due to lack of swabs. Lungs are clear to auscultation. Discussed the patient this is likely a viral illness, possibly influenza. Discussed supportive care. Patient instructed to take cough lozenges and honey for her cough. Continue with Tylenol and Motrin. Given a prescription for Flonase to help with congestion per patient request. She is to follow-up with her primary care provider in the next few days and is to return to the ED with any new or worsening symptoms. Patient voices understanding and is agreeable to plan. [facility]12-30-2022 Hospital Discharge instructions Patient Education 03/05/2022 00:02:33 Influenza, Adult Influenza, Adult Influenza, more commonly known as the flu, is a viral infection that mainly affects the respiratory tract. The respiratory tract includes organs that help you breathe, such as the lungs, nose, and throat. The flu causes many symptoms similar to the common cold along with high fever and body aches. The flu spreads easily from person to person (is contagious). Getting a flu shot (influenza vaccination) every year is the best way to prevent the flu. What are the causes? This condition is caused by the influenza virus. You can get the virus by: Breathing in droplets that are in the air from an infected person's cough or sneeze. Touching something that has been exposed to the virus (has been contaminated) and then touching your mouth, nose, or eyes. What increases the risk? The following factors may make you more likely to get the flu: Not washing or sanitizing your hands often. Having close contact with many people during cold and flu season. Touching your mouth, eyes, or nose without first washing or sanitizing your hands. Not getting a yearly (annual) flu shot. You may have a higher risk for the flu, including serious problems such as a lung infection (pneumonia), if you: Are older than 65. Are . Have a weakened disease-fighting system (immune system). You may have a weakened immune system if you: ?Have HIV or AIDS. ?Are undergoing chemotherapy. ?Are taking medicines that reduce (suppress) the activity of your immune system. Have a long-term (chronic) illness, such as heart disease, kidney disease, diabetes, or lung disease. Have a liver disorder. Are severely overweight (morbidly obese). Have anemia. This is a condition that affects your red blood cells. Have asthma. What are the signs or symptoms? Symptoms of this condition usually begin suddenly and last 4 14 days. They may include: Fever and chills. Headaches, body aches, or muscle aches. Sore throat. Cough. Runny or stuffy (congested) nose. Chest discomfort. Poor appetite. Weakness or fatigue. Dizziness. Nausea or vomiting. How is this diagnosed? This condition may be diagnosed based on: Your symptoms and medical history. A physical exam. Swabbing your nose or throat and testing the fluid for the influenza virus. How is this treated? If the flu is diagnosed early, you can be treated with medicine that can help reduce how severe theillness is and how long it lasts (antiviral medicine). This may be given by mouth (orally) or through an IV. Taking care of yourself at home can help relieve symptoms. Your health care provider may recommend: Taking otau-fzl-vezjfmx medicines. Drinking plenty of fluids. In many cases, the flu goes away on its own. If you have severe symptoms or complications, you may be treated in a hospital. Follow these instructions at home: Activity Rest as needed and get plenty of sleep. Stay home from work or school as told by your health care provider. Unless you are visiting your health care provider, avoid leaving home until your fever has been gone for 24 hours without taking medicine. Eating and drinking Take an oral rehydration solution (ORS). This is a drink that is sold at pharmacies and retail stores. Drink enough fluid to keep your urine pale yellow. Drink clear fluids in small amounts as you are able. Clear fluids include water, ice chips, dilutedfruit juice, and low-calorie sports drinks. Eat bland, enyk-wr-mfrcbg foods in small amounts as you are able. These foods include bananas, applesauce, rice, lean meats, toast, and crackers. Avoid drinking fluids that contain a lot of sugar or caffeine, such as energy drinks, regular sports drinks, and soda. Avoid alcohol. Avoid spicy or fatty foods. General instructions Take jckk-oaa-evljpca and prescription medicines only as told by your health care provider. Use a cool mist humidifier to add humidity to the air in your home. This can make it easier to breathe. Cover your mouth and nose when you cough or sneeze. Wash your hands with soap and water often, especially after you cough or sneeze. If soap and water are not available, use alcohol-based hand operations general agent. Keep all follow-up visits as told by your health care provider. This is important. How is this prevented? Get an annual flu shot. You may get the flu shot in late summer, fall, or winter. Ask your health care provider when you should get your flu shot. Avoid contact with people who are sick during cold and flu season. This is generally fall and winter. Contact a health care provider if: You develop new symptoms. You have: ?Chest pain. ?Diarrhea. ?A fever. Your cough gets worse. You produce more mucus. You feel nauseous or you vomit. Get help right away if: You develop shortness of breath or difficulty breathing. Your skin or nails turn a bluish color. You have severe pain or stiffness in your neck. You develop a sudden headache or sudden pain in your face or ear. You cannot eat or drink without vomiting. Summary Influenza, more commonly known as the flu, is a viral infection that primarily affects your respiratory tract. Symptoms of the flu usually begin suddenly and last 4 14 days. Getting an annual flu shot is the best way to prevent getting the flu. Stay home from work or school as told by your health care provider. Unless you are visiting your health care provider, avoid leaving home until your fever has been gone for 24 hours without taking medicine. Keep all follow-up visits as told by your health care provider. This is important. This information is not intended to replace advice given to you by your health care provider. Make sure you discuss any questions you have with your health care provider. Document Released: 02/18/2001 Document Revised: 05/24/2019 Document Reviewed: 08/09/2018 [employer] Patient Education 2020 [employer]. Follow Up Care 03/04/2022 21:49:31 With:Take Tylenol and Motrin for fevers and body aches. Use honey and cough lozenges for cough and sore throat. Follow-up with your primary care provider and return to the ED with any new or worsening symptoms. Address:Unknown When: Unknown With:Emily MICHAEL Address: [address] [place] [address] [address] [place] [address]- Business (1) When:Within 3 Day(s) [facility]11-02-2022 Hospital Discharge instructions Patient Education 01/06/2022 11:42:30 COVID-19: How to Protect Yourself and Others - [facility] COVID-19: How to Protect Yourself and Others Know how it spreads There is currently no vaccine to prevent coronavirus disease 2019 (COVID-19). The best way to prevent illness is to avoid being exposed to this virus. The virus is thought to spread mainly from vnohku-sr-ueurkk. ?Between people who are in close contact with one another (within about 6 feet). ?Through respiratory droplets produced when an infected person coughs, sneezes or talks. ?These droplets can land in the mouths or noses of people who are nearby or possibly be inhaled into the lungs. ?Some recent studies have suggested that COVID-19 may be spread by people who are not showing symptoms. Everyone should Clean your hands often Wash your hands often with soap and water for at least 20 seconds especially after you have been emily public place, or after blowing your nose, coughing, or sneezing. If soap and water are not readily available, use a hand operations general agent that contains at least 60% alcohol. Cover all surfaces of your hands and rub them together until they feel dry. Avoid touching your eyes, nose, and mouth with unwashed hands. Avoid close contact Limit contact with others as much as possible. Avoid close contact with people who are sick. Put distance between yourself and other people. ?Remember that some people without symptoms may be able to spread virus. ?This is especially important for people who are at higher risk of getting very sick.www.cdc.gov/cor onavirus/2019-ncov/xfzs-teazy-zqsojekospe/feyndg-ym-adeslj-risk.html Cover your mouth and nose with a cloth face cover when around others You could spread COVID-19 to others even if you do not feel sick. Everyone should wear a cloth face covering in public settings and when around people not living in their household, especially when social distancing is difficult to maintain. ?Cloth face coverings should not be placed on young children under age 2, anyone who has trouble breathing, or is unconscious, incapacitated or otherwise unable to remove the mask without assistance. The cloth face cover is meant to protect other people in case you are infected. Do NOT use a facemask meant for a healthcare worker. Continue to keep about 6 feet between yourself and others. The cloth face cover is not a substitutefor social distancing. Cover coughs and sneezes Always cover your mouth and nose with a tissue when you cough or sneeze or use the inside of your elbow. Throw used tissues in the trash. Immediately wash your hands with soap and water for at least 20 seconds. If soap and water are not readily available, clean your hands with a hand operations general agent that contains at least 60% alcohol. Clean and disinfect Clean AND disinfect frequently touched surfaces daily. This includes tables, doorknobs, light switches, countertops, handles, desks, phones, keyboards, toilets, faucets, and sinks. www.cdc.gov/coronav irus/2019-ncov/surcrys-dseelft-abnl/cbxjiyszlvir-eniy-gwnq.html If surfaces are dirty, clean them: Use detergent or soap and water prior to disinfection. Then, use a household disinfectant. You can see a list of EPA-registered household disinfectants here. cdc.gov/coronavirus 09/04/2019 This information is not intended to replace advice given to you by your health care provider. Make sure you discuss any questions you have with your health care provider. Document Released: 06/19/2019 Document Revised: 09/13/2019 Document Reviewed: 09/13/2019 [employer] Patient Education 2019 [employer] 01/06/2022 11:42:30 COVID-19 Frequently Asked Questions COVID-19 Frequently Asked Questions COVID-19 (coronavirus disease) is an infection that is caused by a large family of viruses. Some viruses cause illness in people and others cause illness in animals like camels, cats, and bats. In some cases, the viruses that cause illness in animals can spread to humans. Where did the coronavirus come from? In February 2019, [place] told the World Health Organization (WHO) of several cases of lung disease (human respiratory illness). These cases were linked to an open seafood and livestock market in the city of [facility]. The link to the seafood and livestock market suggests that the virus may have spread from animals to humans. However, since that first outbreak in February, the virus has also been shownto spread from person to person. What is the name of the disease and the virus? Disease name Early on, this disease was called novel coronavirus. This is because scientists determined that thedisease was caused by a new (novel) respiratory virus. The World Health Organization (WHO) has now named the disease COVID-19, or coronavirus disease. Virus name The virus that causes the disease is called severe acute respiratory syndrome coronavirus 2 (SARS-CoV-2). More information on disease and virus naming World Health Organization (WHO): www.who.int/emergencies/diseases/gwtet-waqmcgdxkui-5396/technical-g uidance/bdtbmn-iuk-smwyvtiwppa-disease-(covid-2019)-jzi-jkh-gnbjb-edxb-qxpjxo-yv Who is at risk for complications from coronavirus disease? Some people may be at higher risk for complications from coronavirus disease. This includes older adults and people who have chronic diseases, such as heart disease, diabetes, and lung disease. If you are at higher risk for complications, take these extra precautions: Avoid close contact with people who are sick or have a fever or cough. Stay at least 3 6 ft (1 2 m)away from them, if possible. Wash your hands often with soap and water for at least 20 seconds. Avoid touching your face, mouth, nose, or eyes. Keep supplies on hand at home, such as food, medicine, and cleaning supplies. Stay home as much as possible. Avoid social gatherings and travel. How does coronavirus disease spread? The virus that causes coronavirus disease spreads easily from person to person (is contagious). There are also cases of community-spread disease. This means the disease has spread to: People who have no known contact with other infected people. People who have not traveled to areas where there are known cases. It appears to spread from one person to another through droplets from coughing or sneezing. Can I get the virus from touching surfaces or objects? There is still a lot that we do not know about the virus that causes coronavirus disease. Scientists are basing a lot of information on what they know about similar viruses, such as: Viruses cannot generally survive on surfaces for long. They need a human body (host) to survive. It is more likely that the virus is spread by close contact with people who are sick (direct contact), such as through: ?Shaking hands or hugging. ?Breathing in respiratory droplets that travel through the air. This can happen when an infected person coughs or sneezes on or near other people. It is less likely that the virus is spread when a person touches a surface or object that has the virus on it (indirect contact). The virus may be able to enter the body if the person touches a surface or object and then touches his or her face, eyes, nose, or mouth. Can a person spread the virus without having symptoms of the disease? It may be possible for the virus to spread before a person has symptoms of the disease, but this ismost likely not the main way the virus is spreading. It is more likely for the virus to spread by being in close contact with people who are sick and breathing in the respiratory droplets of a sick person's cough or sneeze. What are the symptoms of coronavirus disease? Symptoms vary from person to person and can range from mild to severe. Symptoms may include: Fever. Cough. Tiredness, weakness, or fatigue. Fast breathing or feeling short of breath. These symptoms can appear anywhere from 2 to 14 days after you have been exposed to the virus. If you develop symptoms, call your health care provider. People with severe symptoms may need hospital care. If I am exposed to the virus, how long does it take before symptoms start? Symptoms of coronavirus disease may appear anywhere from 2 to 14 days after a person has been exposed to the virus. If you develop symptoms, call your health care provider. Should I be tested for this virus? Your health care provider will decide whether to test you based on your symptoms, history of exposure, and your risk factors. How does a health care provider test for this virus? Health care providers will collect samples to send for testing. Samples may include: Taking a swab of fluid from the nose. Taking fluid from the lungs by having you cough up mucus (sputum) into a sterile cup. Taking a blood sample. Taking a stool or urine sample. Is there a treatment or vaccine for this virus? Currently, there is no vaccine to prevent coronavirus disease. Also, there are no medicines like antibiotics or antivirals to treat the virus. A person who becomes sick is given supportive care, which means rest and fluids. A person may also relieve his or her symptoms by using kjyk-jfx-rzfhwwh medicines that treat sneezing, coughing, and runny nose. These are the same medicines that a person takes for the common cold. If you develop symptoms, call your health care provider. People with severe symptoms may need hospital care. What can I do to protect myself and my family from this virus? You can protect yourself and your family by taking the same actions that you would take to prevent the spread of other viruses. Take the following actions: Wash your hands often with soap and water for at least 20 seconds. If soap and water are not available, use alcohol-based hand operations general agent. Avoid touching your face, mouth, nose, or eyes. Cough or sneeze into a tissue, sleeve, or elbow. Do not cough or sneeze into your hand or the air. ?If you cough or sneeze into a tissue, throw it away immediately and wash your hands. Disinfect objects and surfaces that you frequently touch every day. Avoid close contact with people who are sick or have a fever or cough. Stay at least 3 6 ft (1 2 m)away from them, if possible. Stay home if you are sick, except to get medical care. Call your health care provider before you get medical care. Make sure your vaccines are up to date. Ask your health care provider what vaccines you need. What should I do if I need to travel? Follow travel recommendations from your local health authority, the CDC, and WHO. Travel information and advice Centers for Disease Control and Prevention (CDC): www.cdc.gov/coronavirus/2019-ncov/travelers/index.html World Health Organization (WHO): www.who.int/emergencies/diseases/qlbal-eeekkohgvml-2702/travel-advice Know the risks and take action to protect your health You are at higher risk of getting coronavirus disease if you are traveling to areas with an outbreak or if you are exposed to travelers from areas with an outbreak. Wash your hands often and practice good hygiene to lower the risk of catching or spreading the virus. What should I do if I am sick? General instructions to stop the spread of infection Wash your hands often with soap and water for at least 20 seconds. If soap and water are not available, use alcohol-based hand operations general agent. Cough or sneeze into a tissue, sleeve, or elbow. Do not cough or sneeze into your hand or the air. If you cough or sneeze into a tissue, throw it away immediately and wash your hands. Stay home unless you must get medical care. Call your health care provider or local health authority before you get medical care. Avoid public areas. Do not take public transportation, if possible. If you can, wear a mask if you must go out of the house or if you are in close contact with someonewho is not sick. Keep your home clean Disinfect objects and surfaces that are frequently touched every day. This may include: ?Counters and tables. ?Doorknobs and light switches. ?Sinks and faucets. ?Electronics such as phones, remote controls, keyboards, computers, and tablets. Wash dishes in hot, soapy water or use a water quality specialist. Air-dry your dishes. Wash laundry in hot water. Prevent infecting other household members Let healthy household members care for children and pets, if possible. If you have to care for children or pets, wash your hands often and wear a mask. Sleep in a different bedroom or bed, if possible. Do not share personal items, such as razors, toothbrushes, deodorant, figueroa, brushes, towels, and washcloths. Where to find more information Centers for Disease Control and Prevention (CDC) Information and news updates: www.cdc.gov/coronavirus/2019-ncov World Health Organization (WHO) Information and news updates: www.who.int/emergencies/diseases/hnifl-fzhridkmgff-4549 Coronavirus health topic: www.who.int/health-topics/coronavirus Questions and answers on COVID-19: www.who.int/news-room/q-a-detail/w-i-eqirvkmcjkzjk Global tracker: who.[employer] [place] [employer] (AAP) Information for families: www.healthychildren.org/[place]/health-issues/conditions/chest-lungs/Pages /0225-Zeygi-Hgbchkxctwd.aspx The coronavirus situation is changing rapidly. Check your local health authority website or the CDCand WHO websites for updates and news. When should I contact a health care provider? Contact your health care provider if you have symptoms of an infection, such as fever or cough, andyou: ?Have been near anyone who is known to have coronavirus disease. ?Have come into contact with a person who is suspected to have coronavirus disease. ?Have traveled outside of the country. When should I get emergency medical care? Get help right away by calling your local emergency services (911 in the [place] if you have: ?Trouble breathing. ?Pain or pressure in your chest. ?Confusion. ?Blue-tinged lips and fingernails. ?Difficulty waking from sleep. ?Symptoms that get worse. Let the emergency medical personnel know if you think you have coronavirus disease. Summary A new respiratory virus is spreading from person to person and causing COVID-19 (coronavirus disease). The virus that causes COVID-19 appears to spread easily. It spreads from one person to another through droplets from coughing or sneezing. Older adults and those with chronic diseases are at higher risk of disease. If you are at higher risk for complications, take extra precautions. There is currently no vaccine to prevent coronavirus disease. There are no medicines, such as antibiotics or antivirals, to treat the virus. You can protect yourself and your family by washing your hands often, avoiding touching your face, and covering your coughs and sneezes. This information is not intended to replace advice given to you by your health care provider. Make sure you discuss any questions you have with your health care provider. Document Released: 06/19/2019 Document Revised: 06/19/2019 Document Reviewed: 06/19/2019 [employer] Patient Education 2020 [employer]. 01/06/2022 11:42:30 COVID-19 COVID-19 COVID-19 is a respiratory infection that is caused by a virus called severe acute respiratory syndrome coronavirus 2 (SARS-CoV-2). The disease is also known as coronavirus disease or novel coronavirus. In some people, the virus may not cause any symptoms. In others, it may cause a serious infection. The infection can get worse quickly and can lead to complications, such as: Pneumonia, or infection of the lungs. Acute respiratory distress syndrome or ARDS. This is fluid build-up in the lungs. Acute respiratory failure. This is a condition in which there is not enough oxygen passing from thelungs to the body. Sepsis or septic shock. This is a serious bodily reaction to an infection. Blood clotting problems. Secondary infections due to bacteria or fungus. The virus that causes COVID-19 is contagious. This means that it can spread from person to person through droplets from coughs and sneezes (respiratory secretions). What are the causes? This illness is caused by a virus. You may catch the virus by: Breathing in droplets from an infected person's cough or sneeze. Touching something, like a table or a doorknob, that was exposed to the virus (contaminated) and then touching your mouth, nose, or eyes. What increases the risk? Risk for infection You are more likely to be infected with this virus if you: Live in or travel to an area with a COVID-19 outbreak. Come in contact with a sick person who recently traveled to an area with a COVID-19 outbreak. Provide care for or live with a person who is infected with COVID-19. Risk for serious illness You are more likely to become seriously ill from the virus if you: Are 65 years of age or older. Have a long-term disease that lowers your body's ability to fight infection (immunocompromised). Live in a snf or long-term care facility. Have a long-term (chronic) disease such as: ?Chronic lung disease, including chronic obstructive pulmonary disease or asthma ?Heart disease. ?Diabetes. ?Chronic kidney disease. ?Liver disease. Are obese. What are the signs or symptoms? Symptoms of this condition can range from mild to severe. Symptoms may appear any time from 2 to 14days after being exposed to the virus. They include: A fever. A cough. Difficulty breathing. Chills. Muscle pains. A sore throat. Loss of taste or smell. Some people may also have stomach problems, such as nausea, vomiting, or diarrhea. Other people may not have any symptoms of COVID-19. How is this diagnosed? This condition may be diagnosed based on: Your signs and symptoms, especially if: ?You live in an area with a COVID-19 outbreak. ?You recently traveled to or from an area where the virus is common. ?You provide care for or live with a person who was diagnosed with COVID-19. A physical exam. Lab tests, which may include: ?A nasal swab to take a sample of fluid from your nose. ?A throat swab to take a sample of fluid from your throat. ?A sample of mucus from your lungs (sputum). ?Blood tests. Imaging tests, which may include, X-rays, CT scan, or ultrasound. How is this treated? At present, there is no medicine to treat COVID-19. Medicines that treat other diseases are being used on a trial basis to see if they are effective against COVID-19. Your health care provider will talk with you about ways to treat your symptoms. For most people, the infection is mild and can be managed at home with rest, fluids, and qcde-whu-mfstyae medicines. Treatment for a serious infection usually takes places in a hospital intensive care unit (ICU). It may include one or more of the following treatments. These treatments are given until your symptoms improve. Receiving fluids and medicines through an IV. Supplemental oxygen. Extra oxygen is given through a tube in the nose, a face mask, or a epps. Positioning you to lie on your stomach (prone position). This makes it easier for oxygen to get into the lungs. Continuous positive airway pressure (CPAP) or bi-level positive airway pressure (BPAP) machine. This treatment uses mild air pressure to keep the airways open. A tube that is connected to a motor delivers oxygen to the body. Ventilator. This treatment moves air into and out of the lungs by using a tube that is placed in your windpipe. Tracheostomy. This is a procedure to create a hole in the neck so that a breathing tube can be inserted. Extracorporeal membrane oxygenation (ECMO). This procedure gives the lungs a chance to recover by taking over the functions of the heart and lungs. It supplies oxygen to the body and removes carbon dioxide. Follow these instructions at home: Lifestyle If you are sick, stay home except to get medical care. Your health care provider will tell you how long to stay home. Call your health care provider before you go for medical care. Rest at home as told by your health care provider. Do not use any products that contain nicotine or tobacco, such as cigarettes, e- cigarettes, and chewing tobacco. If you need help quitting, ask your health care provider. Return to your normal activities as told by your health care provider. Ask your health care provider what activities are safe for you. General instructions Take siey-thq-hsqlizh and prescription medicines only as told by your health care provider. Drink enough fluid to keep your urine pale yellow. Keep all follow-up visits as told by your health care provider. This is important. How is this prevented? There is no vaccine to help prevent COVID-19 infection. However, there are steps you can take to protect yourself and others from this virus. To protect yourself: Do not travel to areas where COVID-19 is a risk. The areas where COVID-19 is reported change often.To identify high-risk areas and travel restrictions, check the [facility] travel website: wwwnc.cdc.gov/travel/notices If you live in, or must travel to, an area where COVID-19 is a risk, take precautions to avoid infection. ?Stay away from people who are sick. ?Wash your hands often with soap and water for 20 seconds. If soap and water are not available, usean alcohol-based hand operations general agent. ?Avoid touching your mouth, face, eyes, or nose. ?Avoid going out in public, follow guidance from your state and local health authorities. ?If you must go out in public, wear a cloth face covering or face mask. ?Disinfect objects and surfaces that are frequently touched every day. This may include: ?Counters and tables. ?Doorknobs and light switches. ?Sinks and faucets. ?Electronics, such as phones, remote controls, keyboards, computers, and tablets. To protect others: If you have symptoms of COVID-19, take steps to prevent the virus from spreading to others. If you think you have a COVID-19 infection, contact your health care provider right away. Tell yourhealth care team that you think you may have a COVID-19 infection. Stay home. Leave your house only to seek medical care. Do not use public transport. Do not travel while you are sick. Wash your hands often with soap and water for 20 seconds. If soap and water are not available, use alcohol-based hand operations general agent. Stay away from other members of your household. Let healthy household members care for children andpets, if possible. If you have to care for children or pets, wash your hands often and wear a mask.If possible, stay in your own room, separate from others. Use a different bathroom. Make sure that all people in your household wash their hands well and often. Cough or sneeze into a tissue or your sleeve or elbow. Do not cough or sneeze into your hand or into the air. Wear a cloth face covering or face mask. Where to find more information Centers for Disease Control and Prevention: www.cdc.gov/coronavirus/2019-ncov/index.html World Health Organization: www.who.int/health-topics/coronavirus Contact a health care provider if: You live in or have traveled to an area where COVID-19 is a risk and you have symptoms of the infection. You have had contact with someone who has COVID-19 and you have symptoms of the infection. Get help right away if: You have trouble breathing. You have pain or pressure in your chest. You have confusion. You have bluish lips and fingernails. You have difficulty waking from sleep. You have symptoms that get worse. These symptoms may represent a serious problem that is an emergency. Do not wait to see if the symptoms will go away. Get medical help right away. Call your local emergency services (911 in the [place] Do not drive yourself to the hospital. Let the emergency medical personnel know if you think you have COVID-19. Summary COVID-19 is a respiratory infection that is caused by a virus. It is also known as coronavirus disease or novel coronavirus. It can cause serious infections, such as pneumonia, acute respiratory distress syndrome, acute respiratory failure, or sepsis. The virus that causes COVID-19 is contagious. This means that it can spread from person to person through droplets from coughs and sneezes. You are more likely to develop a serious illness if you are 65 years of age or older, have a weak immunity, live in a snf, or have chronic disease. There is no medicine to treat COVID-19. Your health care provider will talk with you about ways to treat your symptoms. Take steps to protect yourself and others from infection. Wash your hands often and disinfect objects and surfaces that are frequently touched every day. Stay away from people who are sick and wear amask if you are sick. This information is not intended to replace advice given to you by your health care provider. Make sure you discuss any questions you have with your health care provider. Document Released: 03/29/2019 Document Revised: 07/19/2019 Document Reviewed: 03/29/2019 [employer] Patient Education 2019 [employer] Follow Up Care 01/06/2022 10:01:13 With:Emily MICHAEL Address: [address] [place], [place] [address] [place] [address]- [facility] (1) When:01/09/2022 11:19:47 Comments:Follow-up with your primary care provider in 3 to 5 days. If symptoms worsen, do not improve, or new symptoms arise please report back to emergency department for further evaluation. [facility]07-10-2022 Hospital Discharge instructions Patient Education 09/13/2021 13:27:15 Impacted Molar Impacted Molar Molars are the teeth in the back of the mouth. When they push out from the gum and grow (erupt), they can become trapped inside the gum, or they may only partially come through the gum surface (become impacted). Molars erupt at different times in life. The first set of molars usually erupts at about 6 7 years of age. The second set of molars typically erupts at about 11 13 years of age. The third set of molars usually erupts at about 17 21 years of age. This set of molars is sometimes referred to as wisdomteeth. [place] teeth are most often affected by this condition, although any molar or set of molars c an become impacted. Impacted molars may increase your risk of developing: Infection. Damage to nearby teeth. Growth of fluid-filled sacs (cysts). Long-lasting (chronic) discomfort. Inflammation of the surrounding gum tissue (pericoronitis). What are the causes? Common causes of this condition include having crowded teeth or a small mouth. This means that there may not be space for the molar to grow into. Other causes include a cyst or a mass (tumor). What are the signs or symptoms? Symptoms of this condition include: Pain. Inflammation near the impacted tooth or teeth. A stiff jaw. Bad breath. A gap between the teeth. Difficulty opening your mouth. A headache or jaw ache. Swollen lymph nodes. A bad taste in your mouth. In some cases, there are no symptoms. How is this diagnosed? This condition can be diagnosed with an oral exam and X-rays. How is this treated? This condition is often treated by removing (extracting) the impacted molar or molars. Other treatment options include: A procedure to remove the gum tissue that covers the impacted molar. Repositioning the teeth so there is room for the molar to come through. This may be done with orthodontic devices, such as braces. Antibiotic medicines, if your impacted molar or set of molars has become infected. Medicines for pain, if needed. Treatment may not be needed if you have no symptoms. Talk with your health care provider about whatis best for you. Follow these instructions at home: Medicines Take baas-zdd-hcaelvv and prescription medicines only as told by your health care provider. If you were prescribed an antibiotic medicine, take it as told by your health care provider. Do notstop taking the antibiotic even if you start to feel better. If you are taking prescription pain medicine, take actions to prevent or treat constipation. Your health care provider may recommend that you: ?Drink enough fluid to keep your urine pale yellow. ?Eat foods that are high in fiber, such as fresh fruits and vegetables, whole grains, and beans. ?Limit foods that are high in fat and processed sugars, such as fried or sweet foods. ?Take an eyrl-nsc-qvymlxr or prescription medicine for constipation. General instructions If directed, put ice on the painful area: ?Put ice in a plastic bag. ?Place a towel between your skin and the bag. ?Leave the ice on for 20 minutes, 2 3 times a day. Your health care provider may recommend that you rinse your mouth 3 4 times a day to help with pain, infection, or inflammation. You may use: ?An antibacterial solution. Use it as told by your health care provider. ?A salt-water rinse. To make a salt-water mixture, completely dissolve 1 tsp of salt in 1 cup of warm water. Keep all follow-up visits as told by your health care provider. This is important. Contact a health care provider if you have: A fever. Symptoms that get worse. Pain that is not controlled with medicine. New symptoms, including: ?New facial swelling or numbness. ?Swelling along your gums. Difficulty opening your mouth. Difficulty swallowing. Summary Molars are the teeth in the back of the mouth. When they push out from the gum and grow, they can become trapped inside the gum, or they may only partially come through the gum surface (become impacted). Impacted molars may increase the risk of developing infection, damage to nearby teeth, growth of fluid-filled sacs (cysts), chronic pain, or inflammation of the surrounding gum tissue. Common causes of this condition include having crowded teeth, a small mouth, a cyst, or a mass (tumor). This condition is often treated by removing (extracting) the impacted molar or molars. Other options include removing the gum tissue that covers the impacted molar, repositioning the teeth with braces, or taking antibiotic medicine for infection. This information is not intended to replace advice given to you by your health care provider. Make sure you discuss any questions you have with your health care provider. Document Released: 10/20/2011 Document Revised: 04/14/2018 Document Reviewed: 02/06/2018 [employer] Patient Education 2020 [employer]. 09/13/2021 13:27:15 Dental Pain Dental Pain Dental pain may be caused by many things, including: Tooth decay (cavities or caries). Cavities expose the nerve of your tooth to air and to hot or coldtemperatures. This can cause pain or discomfort. Abscess or infection. A dental abscess is a collection of pus from a bacterial infection in the inner part of the tooth (pulp). It usually occurs at the end of the root of a tooth. Injury. An unknown reason (idiopathic). Your pain may be mild or severe. It may occur when you are: Chewing. Exposed to hot or cold temperatures. Eating or drinking sugary foods or beverages, such as soda or candy. Your pain may be constant, or it may come and go without cause. Follow these instructions at home: Watch your dental pain for any changes. The following actions may help to lessen any discomfort that you are feeling: Medicines Take iqsi-yzk-zuvzdml and prescription medicines only as told by your health care provider. If you were prescribed an antibiotic medicine, take it as told by your health care provider. Do notstop taking the antibiotic even if you start to feel better. Eating and drinking Avoid foods or drinks that cause you pain, such as: ?Very hot or very cold foods or drinks. ?Sweet or sugary foods or drinks. Managing pain and swelling Apply ice to the painful area of your face: ?Put ice in a plastic bag. ?Place a towel between your skin and the bag. ?Leave the ice on for 20 minutes, 2 3 times a day. Brushing your teeth To keep your mouth and gums healthy, use fluoride toothpaste to brush your teeth twice a day. Flossonce a day. Use a toothpaste made for sensitive teeth if directed by your health care provider. [place] your teeth with a soft-bristled toothbrush. General instructions Do not apply heat to the outside of your face. Gargle with a salt-water mixture 3 4 times a day or as needed. To make a salt- water mixture, completely dissolve 1 tsp of salt in 1 cup of warm water. Keep all follow-up visits as told by your health care provider. This is important. Apply ice to the outside of your jaw if there is swelling. Do not put ice directly on the skin. Contact a health care provider if: Your pain is not controlled with medicines. Your symptoms get worse. You have new symptoms. Get help right away if you: Are unable to open your mouth. Are having trouble breathing or swallowing. Have a fever. Notice that your face, neck, or jaw is swollen. Summary Dental pain may be caused by many things, including tooth decay and infection. Your pain may be mild or severe. Take qgyw-hvw-fvoqmgn and prescription medicines only as told by your health care provider. Watch your dental pain for any changes. Let your health care provider know if symptoms get worse. This information is not intended to replace advice given to you by your health care provider. Make sure you discuss any questions you have with your health care provider. Document Released: 02/21/2006 Document Revised: 06/19/2019 Document Reviewed: 01/12/2018 [employer] Patient Education 2020 [employer] Follow Up Care 09/13/2021 12:15:29 With:Dental: [facility] [phone] Address:Unknown When:09/16/2021 13:11:14 [facility] [phone] Address:Unknown When:09/16/2021 13:11:13 With:Dental: [facility] [phone] Address:Unknown When:09/16/2021 13:11:13 [facility]07-10-2022 Evaluation + Plan noteExtracted from: Title:ED Note Author:Rober Solorzano PA-C te:09/13/21 Pain, dental (K08.89: Other specified disorders of teeth and supporting structures) Orders: benzocaine topical, 1 marci, Gel, Topical, QID, STAT, Start date 09/13/21 13:11:00 EDT lidocaine topical, 400 mg, 20 mL, Soln-Oral, Oral, Once, Stop date 09/13/21 13:11:00 EDT, STAT, Start date 09/13/21 13:11:00 EDT naproxen, 500 mg = 1 tab(s), Oral, BID, X 7 day(s), # 14 tab(s), Refills(s) 0, [id number], 170, cm, 09/13/21 12:18:00 EDT, Height/Length Dosing, 75, kg, 09/13/21 12:18:00 EDT, Weight Dosing penicillin V potassium, 500 mg = 1 tab(s), Oral, TID, Take one tab by mouth 3 times a day. # 30, X 10 day(s), # 30 tab(s), Refills(s) 0, [id number], 170, cm, 09/13/21 12:18:00 EDT, Height/Length Dosing, 75, kg, 09/13/21 12:18:00 EDT, Weight Dosing [facility] Appointment Date:06/22/2022 02:20:00 PM Scheduled Provider:KATELYN ROBERTS CNP [facility] App[facility]ments Appointment Date:11/09/2022 11:20:00 AM Scheduled Provider:Katelyn Mora Location:[facility] Appointment Type:[facility] Evaluation + Plan note Future Appointments Appointment Date:11/16/2022 12:00:00 PM Scheduled Provider: [facility] Type:CV EKG () [facility] Evaluation + Plan note Future Appointments Appointment Date:12/16/2022 02:00:00 PM Scheduled Provider:Huang FLORES MD [facility]iology New Patient () [facility] Future Appointments Appointment Date:12/21/2022 08:45:00 AM Scheduled Provider: [facility] Appointment Type:CV Stress () Appointment Date:01/26/2023 11:45:00 AM Scheduled Provider:Huang FLORES MD Location:[facility] Appointment Type:Cardiology Follow Up ([facility]) Future Scheduled Tests Radiology* Echo Transthoracic Complete 12/16/22 * ECG Stress Exercise 12/21/22 [facility]ments Appointment Date:01/26/2023 11:45:00 AM Scheduled Provider:Huang FLORES MD Location:[facility] Appointment Type:Cardiology Follow Up ([facility]) Future Scheduled Tests Radiology* Echo Transthoracic Complete 12/16/22 [facility]ments Appointment Date:01/18/2023 10:30:00 AM Scheduled Provider:Preethi BARBOSA CNP Location:[facility] Appointment Type:Cardiology Follow Up ([facility]) Future Scheduled Tests Radiology* Echo Transthoracic Complete 12/16/22 [facility] Appointment Date:04/06/2023 01:00:00 PM Scheduled Provider:Huang FLORES MD Location:[facility] Appointment Type:Cardiology Follow Up ([facility]) Future Scheduled Tests Radiology* Echo Transthoracic Complete 12/16/22 [facility] course Narrative No data available for this section [facility] Discharge instructions No data available for this section [facility] [place] [facility] note No data available for this section [facility] Summary Purpose Family History No Family History Records Found No data available for this section No data available for this section No data available for this section No data available for this section No Family History Records Found No data available for this section No data available for this section No data available for this section No Family History Records Found No data available for this section No Family History Records Found Advance Directives No Advanced Directives Records FoundNo Advanced Directives Records FoundNo Advanced Directives Records FoundNo Advanced Directives Records Found Additional Source Comments Care Team (unrecognized sect ion and content) Personnel Name: Emily MICHAEL MD Address: [address] [place], [place] [address] [place], [place] [address] Name: Caroline BENSON Address: [address] [place] [address], [facility] [address] [address]- [place] Name: Leslie Cardenas Personnel Name: Emily MICHAEL MD Address: Address: [address] [facility] [place] [address]- [place] Name: Caroline BENSON Address: Address: [address] [place] [address] [place] [address], [place] [address]- [place] Name: Leslie Cardenas Personnel Name: Emily MICHAEL MD Address: Address: [address] [place] [address]- [place] Name: Caroline BENSON Address: Address: [address] [place] [address]- [place] Name: Leslie Cardenas Personnel Name: KATELYN ROBERTS CNP Address: Address: [address] [facility] [address] [place] [address] [place] Name: Caroline BENSON Address: Address: [address] [place] [address] [place] [address], [place] [address]- [place] Name: Leslie Cardenas Personnel Name: KATELYN ROBERTS CNP Address: Address: [address] [place] [address] [place] Name: Caroline BENSON Address: Address: [address] [place] [address]- [place] Name: Leslie Cardenas Personnel Name: KATELYN ROBERTS CNP Address: Address: [address] [facility] [facility], [facility] [address] [place] [address] [place] Name: Caroline BENSON Address: Address: [address] [place] [address]- [place] Name: Leslie Cardenas Personnel Name: KATELYN ROBERTS CNP Address: Address: [address] [place] [address] [place] Name: Caroline BENSON Address: Address: [address] [place] [address] [place] [address], [place] [address]- [place] Name: Leslie Cardenas Personnel Name: KATELYN ROBERTS CNP Address: Address: [address] [facility], [facility] [address] [place] [address] [place] Name: Caroline BENSON Address: Address: [address] [address]- [place] Name: Leslie Cardenas Personnel Name: KATELYN ROBERTS CNP Address: Address: [address] [facility], [facility] [address] [place] [address] [place] Name: Caroline BENSON Address: Address: [address] [place], [place] [address] [address]- [place] Name: Leslie Cardenas Personnel Name: ALEJANDRA RUCKER KATELYN W Address: Address: [address] [facility], [facility] [address] [place] [address] [place] Name: Caroline BENSON Address: Address: [address] [place], [place] [address] [address]- [place] Name: Leslie Cardenas Personnel Name: Katelyn Mora Address: Address: [address] [place] [address]- Name: Cecilia Tijerina LPN Name: Caroline BENSON Address: Address: [address] [place], [place] [address] [place] [address]- [place] Name: Leslie Cardenas Personnel Name: Katelyn Mora Address: Address: [address] [place] [address]- Name: Cecilia Tijerina LPN Name: Caroline BENSON Address: Address: [address] [place], [place] [address], [facility] [address] [place] [address]- [place] Name: Leslie Cardenas Personnel Name: Katelyn Mora Address: Address: [address] [facility] [place] [address]- Name: Cecilia Tijerina LPN Name: Caroline BENSON Address: Address: [address] [place], [place] [address], [facility] [address] [place] [address]- [place] Name: Leslie Cardenas Personnel Name: Katelyn Mora Address: Address: [address] [place] [address]- Name: Cecilia Tijerina LPN Name: Caroline BENSON Address: Address: [address] [place], [place] [address] [address]- [place] Name: Leslie Cardenas B Personnel Name: Rosanna Moradi L Address: Address: [address] [place] [address]- Name: Cecilia Tijerina LPN Name: Caroline BENSON Address: Address: [address] [place] [address] [place] [address]- [place] Name: Ronald Leslie B Personnel Name: Rosanna Moradi L Address: Address: [address] [place] [address]- Name: Cecilia Tijerina LPN Name: Caroline BENSON Address: Address: [address] [place] [address]- [place] Name: Ronald Leslie B Personnel Name: Rosanna Moradi L Address: Address: [address] [place] [address]- Name: Cecilia Tijerina LPN Name: Caroline BENSON Address: Address: [address] [place] [address] [place] [address]- [place] Name: Ronald Leslie B Personnel Name: Rosanna Moradi L Address: Address: [address] [place] [address]- Name: Cecilia Tijerina LPN Name: Caroline BENSON Address: Address: [address] [place] [address] [place] [address]- [place] Name: Ronald Leslie B Personnel Name: Rosanna Moradi L Address: Address: [address] [place] [address]- Name: Cecilia Tijerina LPN Name: Caroline BENSON Address: Address: [address] [place] [address] [place] [address]- [place] Name: Ronald Leslie B Personnel Name: Tomasa GAY Katelyn L Address: Address: [address] [facility] [place] [address]- Name: Cecilia Tijerina LPN Name: Caroline BENSON Address: Address: [address] [place] [address] [place] [address]- [place] Name: Leslie Cardenas Personnel Name: Tomasa FNPKatelyn L Address: Address: [address] [place] [address]- Name: Cecilia Tijerina LPN Name: Caroline BENSON Address: Address: [address] [place] [address]- Name: Leslie Cardenas Personnel Name: Katelyn Mora L Address: Address: [address] [place] [address]- Name: Cecilia Tijerina LPN Name: Caroline BENSON Address: Address: [address] [place] [address]- Name: Leslie Cardenas Personnel Name: Tomasa GAY Katelyn L Address: Address: [address] [place] [address]- Name: Cecilia Tijerina LPN Name: Caroline BENSON Address: Address: [address] [place] [address]- Name: Leslie Cardenas Personnel Name: Tomasa GAY Katelyn L Address: Address: [address] [place] [address]- Name: Cecilia Tijerina LPN Name: FRANCISCO ZALDIVAR Caroline Address: Address: [address] [place] [address]- Name: Leslie Cardenas INFORMATION SOURCE (unrecogn ized section and content) DATE CREATED AUTHOR 04/19/2022 [facility] DATE CREATED AUTHOR AUTHOR'S ORGANIZ ATION 02/05/2023 [facility] DATE CREATED AUTHOR AUTHOR'S ORGANIZ ATION 02/20/2023 [facility] DATE CREATED AUTHOR AUTHOR'S ORGANIZ ATION 03/04/2023 [facility] FOR RECORDS PERTAINING TO PATIENTS WHO ARE OR HAVE BEEN ENROLLED IN A CHEMICAL DEPENDENCY/SUBSTANCEABUSE PROGRAM, SOME INFORMATION MAY BE OMITTED. This clinical summary was aggregated from multiple sources. Caution should be exercised in using it in the provision of clinical care. This summary normalizes information from multiple sources, and as a consequence, information in this document may materially change the coding, format and clinical context of patient data. In addition, data may be omitted in some cases. CLINICAL DECISIONS SHOULD BE BASED ON THE PRIMARY CLINICAL RECORDS. [facility]. provides no warranty or guarantee of the accuracy or completeness of information in this document.
[2023-03-11 16:11] LABS: Basophils Percent Auto 0.6 % (0.2-2.0); Eosinophils Absolute Auto 0.2 10^3/uL (0.0-0.7); Eosinophils Percent Auto 2.3 % (0.9-7.0); Hematocrit 37.4 % (36.0-48.0); Hemoglobin 12.6 g/dL (12.0-16.0); Immature Granulocytes Abs Auto 0.03 10^3/uL (0.00-0.03); Immature Granulocytes Pct Auto 0.4 % (0.0-0.5); Lymphocytes Absolute Auto 1.9 10^3/uL (1.2-3.8); Lymphocytes Percent Auto 27.9 % (20.5-60.0); Mean Corpuscular HGB Conc 33.7 g/dL (29.9-35.2); Mean Corpuscular Hemoglobin 29.4 pg (26.7-34.0); Mean Corpuscular Volume 87.2 fL (81.0-99.0); Mean Platelet Volume 10.1 fL (9.5-13.5); Monocytes Absolute Auto 0.4 10^3/uL (0.3-0.8); Monocytes Percent Auto 6.3 % (1.7-12.0); Neutrophils Absolute Auto 4.4 10^3/uL (1.4-6.5); Neutrophils Percent Auto 62.5 % (43.0-75.0); Platelet Count 238 10^3/uL (150-450); Red Blood Count 4.29 10^6/uL (4.20-5.40); Red Cell Distribution Width 12.2 % (11.0-15.0)
[2023-03-11 16:18] LABS: Estimated Average Glucose 103 mg/dL; Glycohemoglobin A1C 5.2 % (4.5-6.2)
[2023-03-11 16:28] LABS: INR 0.98; Partial Thromboplastin Time 29.7 sec (22.3-36.2); Prothrombin Time 10.4 sec (9.0-11.6)
[2023-03-11 16:38] LABS: HCG Quantitative <1 mIU/mL; Thyroid Stimulating Hormone 1.994 uIU/mL (0.358-3.740)
[2023-03-11 17:10] LABS: Free T4 0.98 ng/dL (0.76-1.46)
[2023-03-13 10:08] LABS: FSH 4.5 mIU/mL (.); Luteinizing Hormone(LH) 2.9 mIU/mL (.); Prolactin 11.9 ng/mL (4.8-33.4)
[2023-03-16 05:09] LABS: DHEA, Serum 640 ng/dL (31-701)
== END 2023-03-11 14:26 | disposition home or self-care (01) ==
LOC: US 14:25
PROVIDERS: PCP Nurse Practitioner; Visit Provider Obstetrics & Gynecology
DX: N92.6 Irregular menstruation, unspecified (principal)
CPT/HCPCS: 36415; 76830; 76856; 82626; 82627; 83001; 83002; 83036; 84146; 84439; 84443; 84702; 85025; 85610; 85730

== ENCOUNTER 2023-04-20 11:30 | Outpatient (OUT) | payer OTHER, SELFPAY ==
--- NOTE | 2023-04-20 11:38 | US_ITS ---
Patient Name: KASSIE SHARIF MR#: [id number] : 1995 Exam Date: 04/20/2023 Ordering Doctor: DR Jesse Rojas . RADIOLOGY REPORT PROCEDURE: US BREAST LT COMPLETE COMPARISON: None. INDICATIONS: breast pain, left N64.4 TECHNIQUE: Breast ultrasound was performed, with evaluation focusing only on specific areas of concern. FINDINGS: DIAGNOSTIC CATEGORY 1--NEGATIVE. LEFT BREAST: No suspicious finding on today's ultrasound evaluation. Consider mammographic evaluation if symptoms persist. RECOMMENDATIONS: CLINICAL EVALUATION. PLEASE NOTE: A NORMAL ULTRASOUND EXAMINATION DOES NOT EXCLUDE THE POSSIBILITY OF BREAST CANCER. A CLINICALLY SUSPICIOUS PALPABLE LUMP SHOULD BE BIOPSIED. Dictated by: Sedrick Marquez M.D. on 04/21/2023 at 08:30 Approved by: Sedrick Marquez M.D. on 04/21/2023 at 08:31
--- OUTSIDE RECORDS SUMMARY | 2023-04-20 11:38 | XMS_ITS | CCD ---
Author Name Unknown Address [address] [facility] [facility] [address] [place] [address] Organization [facility] Care Team Providers Care 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 Name Role Phone Emily MICHAEL Primary Care Physician [phone] Caroline SINGH Unavailable Leslie Cardenas Unavailable Unavailable Eddie, DR Reddy Consulting Unavailable REQUEST, DR KING LISTED Primary Care Unavaila ble PEACE, DR CROWLEY Attending Unavailable PEACE, DR CROWLEY Admitting Unavailable PEACE, DR CROWLEY Consulting Unavailable PEACE, DR CROWLEY Consulting Unavailable REQUEST, DR KING LISTED Primary Care [...] PEACE, DR CROWLEY Consulting Unavailable REQUEST, DR KING LISTED Primary Care [...] Attending Unavailable PEACE, DR CROWLEY Admitting Unavailable West, DR Reddy Consulting Unavailable REQUEST, NONE LISTED Primary Care Unavaila ble PEACE, DR CROWLEY Attending Unavailable PEACE, DR CROWLEY Admitting Unavailable PEACE, DR CROWLEY Consulting Unavailable KATELYN ROBERTS Primary Care Physician Will Hawthorne Primary Care Physician [phone] Cecilia Tijerina Unavailable Unavailable Tomasa MANAGER DIGITAL AD OPERATIONSWill SOLOMON Primary Care Provider ALIZE DOTY Attending Unavailable WILL HAWTHORNE Primary Care Unavailable ALIZE DOTY Referring Unavailable MD Alize Doty Attending Provider MD Urvashi Medina Referring Provider KELLI Hawthorne Primary Care Provider KEO HAND Attending Unavailable KEO HAND Attending Unavailable Urvashi Medina Referring Unavailable Will Hawthorne Primary Care Unavailable Alize Doty Admitting Unavailable Alize Doty Attending Unavailable NO FAMILY, PHYSICIAN Primary Care Unavailable Lee Weiss Admitting Unavailab le Lee Weiss Attending Unavailab le Tomasa, Will L Attending Unavailable Tomasa, Will L Admitting Unavailable Tomasa, Will L Referring Unavailable Tomasa, Will L Attending Unavailable Tomasa, Will L Attending Unavailable SIDELL, KATELYN W Attending Unavailable SIDELL, KATELYN W Attending Unavailable Tomasa, Will L Attending Unavailable Tomasa, Will L Attending Unavailable Tomasa, Will L Attending Unavailable Tomasa, Will L Attending Unavailable Tomasa, Will L Attending Unavailable Tomasa, Will L Attending Unavailable Tomasa, Will L Attending Unavailable Huang FLORES Admitting Unavailable Huang FLORES Attending Unavailable NONE, XXXX Referring Unavailable Huang FLORES Admitting Unavailable Huang FLORES Attending Unavailable NONE, XXXX Referring Unavailable Tomasa, Will L Admitting Unavailable ChadwickDrake. Attending Unavailable William Badillo Attending Unavailable Sheila Smith Attending Unavailable GIOVANNI HAWTHORNE Attending Unavailable SIDELL, KATELYN W Attending Unavailable Tomasa, Will L Attending Unavailable Tomasa, Will L Admitting Unavailable Tomasa, Will L Referring Unavailable ChadwickDrake Admitting Unavailable ChadwickDrake. Attending Unavailable SIDELL, KATELYN W Attending Unavailable SIDELL, KATELYN W Admitting Unavailable Wilbert Viveros Consulting Unavailable AMIRJuan Admitting Unavailable AMIRJuan Attending Unavailable Wilbert Viveros Consulting Unavailable DO Wilbert Viveros Consulting Unavailable Wilbert Viveros Consulting Unavailable Quintin Murcia Attending Unavailable Nicolas Izquierdo Attending Unavailable Quintin Murcia Attending Unavailable DO Winnie Paula Attending Unavailable DO Winnie Paula Attending Unavailable Quintin Murcia Attending Unavailable Huang FLORES Attending Unavailable Huang FLORES Admitting Unavailable Tomasa, Will L Referring Unavailable Tomasa, Will L Attending Unavailable Tomasa, Will L Admitting Unavailable Tomasa, Will L Referring Unavailable ChadwickDrake Admitting Unavailable ChadwickDrake Referring Unavailable ChadwickDrake Attending Unavailable Tomasa, Will L Admitting Unavailable Tomasa, Will L Referring Unavailable Tomasa, Will L Attending Unavailable Huang FLORES Admitting Unavailable Huang FLORES Referring Unavailable Huang FLORES Attending Unavailable Huang FLORES Consulting Unavailable Huang FLORES Consulting Unavailable Huang FLORES Consulting Unavailable KATELYN ROBERTS Attending Unavailable KATELYN ROBERTS Admitting Unavailable Allergies Allergy Classification Reported Allergen(s) Allergy Type Date of Onset Reaction(s) Facility (20 sources) Clindamycin; Translations: [clindamycin] Drug Allergy 02-03-2023 [facility] (1 source) Clindamycin Drug Allergy [facility] Repository (2 sources) Cephalexin; Translations: [CEPHALEXIN] Drug Allergy 03-21-2023 Unknown [facility] (1 source) Clindamycin Drug Allergy 03-30-2023 [facility] Repository (1 source) Cephalexin; Translations: [Keflex] Drug Allergy [facility] Repository Medications Current Medications Medication Drug Class(es) Dates Sig (Normalized) Sig (Original) amoxicillin 500 mg oral tablet (1 source) Penicillin-class Antibacterial Start: 05-13-2022 End: 05-20-2022 take 2 tablets by mouth twice daily amoxicillin 500 mg oral tablet 1,000 mg = 2 tab(s), Oral, BID, X 7 day(s), # 28 tab(s), Refills(s) 0, Pharmacy: [facility]/pharmacy #[id number], 170.2, cm, 05/11/22 21:11:00 EST, Height/Length Dosing, 77.3, kg, 05/11/22 21:11:00 EST, Weight Dosing Start Date: 05/13/22 Stop Date: 05/20/22 Status: Ordered Aspirin (13 sources) Platelet Aggregation Inhibitor, Nonsteroidal Anti-inflammatory Drug Start: 11-09-2022 [facility] ASP[facility] EC 81 MG TABLET [facility] ASPIRIN EC 81 MG TABLET, 0 Start Date: 11/09/22 Status: Ordered Start: 11-02-2022 End: 11-09-2022 take 1 tablet by mouth once daily aspirin 81 mg Oral EC Tab 81 mg = 1 tab(s), Oral, Daily, X 7 day(s), # 7 tab(s), Refills(s) 0, Pharmacy: [facility]/pharmacy #[id number], 172, cm, 11/01/22 13:44:00 EDT, Height/Length Dosing, 73, kg, 11/01/22 13:44:00 EDT, Weight Dosing Start Date: 11/02/22 Stop Date: 11/09/22 Status: Ordered buPROPion (1 source) Aminoketone Start: 04-06-2023 Wellbutrin SR Refills(s) 0 Start Date: 04/06/23 Status: Ordered cephalexin 500 mg oral capsule (4 sources) Cephalosporin Antibacterial Start: 12-20-2022 take 1 capsule by mouth every eight hours Keflex 500 mg Cap 500 mg = 1 cap(s), Oral, q8hr, # 30 cap(s), Refills(s) 0, Pharmacy: [facility]/pharmacy #[id number], 170, cm, 12/16/22 14:03:00 EDT, Height/Length Dosing, 71.4, kg, 12/16/22 14:03:00 EDT, Weight Dosing Start Date: 12/20/22 Status: Ordered Start: 11-15-2022 End: 11-20-2022 take 1 capsule by mouth every eight hours Keflex 500 mg Cap 500 mg = 1 cap(s), Oral, q8hr, X 5 day(s), # 15 cap(s), Refills(s) 0, [id number] 170, cm, 11/15/22 10:07:00 EDT, Height/Length Dosing, 71.2, kg, 11/15/22 10:07:00 EDT, Weight Dosing Start Date: 11/15/22 Stop Date: 11/20/22 Status: Ordered cyclobenzaprine hydrochloride 5 mg oral tablet (1 source) Muscle Relaxant Start: 04-04-2023 End: 04-11-2023 take 1 tablet by mouth at bedtime cyclobenzaprine 5 mg Tab 5 mg = 1 tab(s), Oral, Bedtime, X 7 day(s), # 7 tab(s), Refills(s) 0, Pharmacy: [facility]/pharmacy #[id number], 170, cm, 04/04/23 12:02:00 EST, Height/Length Dosing, 74.5, kg, 04/04/23 12:02:00 EST, Weight Dosing Start Date: 04/04/23 Stop Date: 04/11/23 Status: Ordered dicyclomine hydrochloride 10 mg oral capsule (1 source) Anticholinergic Start: 02-15-2023 End: 02-17-2023 take 1 capsule by mouth four times daily Bentyl 10 mg Cap 10 mg = 1 cap(s), Oral, QID, X 2 day(s), # 8 cap(s), Refills(s) 0, Pharmacy: [facility]/pharmacy #[id number], 170, cm, 02/15/23 15:41:00 EST, Height/Length [...] day(s), # 30 cap(s), Refills(s) 2, [id number], cm, 12/16/22 14:03:00 EDT, Height/Length Dosing, 71.4, kg, 12/16/22 14:03:00 EDT, Weight Dosing Start Date: 12/21/22 Stop Date: 03/21/23 Status: Ordered FLUoxetine 10 mg oral tablet (16 sources) Serotonin Reuptake Inhibitor Start: 12-29-2022 take 1 tablet by mouth once daily fluoxetine 10 mg oral tablet 10 mg = 1 tab(s), Oral, Daily, # 30 tab(s), Refills(s) 3, Pharmacy: [facility]/pharmacy #[id number], 170, cm, 12/16/22 14:03:00 EDT, Height/Length Dosing, 71.4, kg, 12/29/22 13:44:00 EDT, Weight Dosing Start Date: 12/29/22 Status: Ordered Start: 11-22-2022 take 1 capsule by [facility] once daily Prozac 20 mg Cap 20 mg = 1 cap(s), Oral, Daily, # 30 cap(s), Refills(s) 2, Pharmacy: [facility]/pharmacy #[id number], 170, cm, 11/15/22 10:07:00 EDT, Height/Length Dosing, 71.2, kg, 11/15/22 10:07:00 EDT, Weight Dosing Start Date: 11/22/22 Status: Ordered Start: 04-02-2020 take 20 mg by mouth once daily Prozac 20 mg, Oral, Daily, Refills(s) 0 Start Date: 04/02/20 Status: Ordered fluticasone propionate 0.05 mg/actuat metered dose nasal spray (4 sources) Corticosteroid Start: 03-05-2022 Flonase 0.05 m g/inh [place] 2 spray(s), Nasal, Daily, 16 gram, Refill(s) 0, each nostril, [facility]/pharmacy #[id number], 170, cm, 03/04/22 21:57:00 EST, Height/Length Dosing, 76.1, kg, 03/04/22 21:57:00 EST, Weight Dosing Start Date: 03/05/22 Status: Ordered LORazepam 0.5 mg oral tablet (4 sources) Benzodiazepine Start: 02-23-2023 take 1 tablet by mouth every six hours as needed LORazepam (Ativan) 0.5 mg tablet Take 1 tablet (0.5 mg) by mouth every 6 hours if needed (as needed). 0 02/23/2023 Active Start: 02-23-2023 take 0.25 mg by mout h once as needed for anxiety Ativan 0.5 mg Tab 0.25 mg = 0.5 tab(s), Oral, Once, PRN as needed for anxiety, # 10 tab(s), Refills(s) 0, Pharmacy: [facility]/pharmacy #[id number], 170, cm, 02/23/23 10:36:00 EST, Height/Length [...] Status: Ordered meloxicam 7.5 mg oral tablet (3 sources) Nonsteroidal Anti-inflammatory Drug Start: 04-04-2023 take 1 tablet by mouth once daily meloxicam 7.5 mg Tab 7.5 mg = 1 tab(s), Oral, Daily, # 30 tab(s), Refills(s) 0, Pharmacy: [facility]/pharmacy #[id number], 170, cm, 04/04/23 12:02:00 EST, Height/Length Dosing, 74.5, kg, 04/04/23 12:02:00 EST, Weight Dosing Start Date: 04/04/23 Status: Ordered Start: 04-21-2022 take 1 tablet by nahun once daily meloxicam 7.5 mg Tab 7.5 mg = 1 tab(s), Oral, Daily, # 30 tab(s), Refills(s) 0, Pharmacy: [facility]/pharmacy #[id number], 170, cm, 04/20/22 15:18:00 EST, Height/Length Dosing, 74.9, kg, 04/20/22 15:18:00 EST, Weight Dosing Start Date: 04/21/22 Status: Ordered naproxen 500 mg oral tablet (8 sources) Nonsteroidal Anti-inflammatory Drug Start: 12-01-2022 take 1 tablet by mouth twice daily as needed for pain Naprosyn 500 mg Tab 500 mg = 1 tab(s), Oral, BID, PRN for pain, # 20 tab(s), Refills(s) 0, Pharmacy: [facility]/pharmacy #[id number], 170, cm, 11/30/22 23:49:00 EDT, Height/Length Dosing, 71.8, kg, 11/30/22 23:49:00 EDT, Weight Dosing Start Date: 12/01/22 Status: Ordered Start: 09-13-2021 End: 09-20-2021 take 1 tablet by mouth twice daily Naprosyn 500 mg Tab 500 mg = 1 tab(s), Oral, BID, X 7 day(s), # 14 tab(s), Refills(s) 0, Pharmacy: [facility]/pharmacy #[id number], 170, cm, 09/13/21 12:18:00 EDT, Height/Length Dosing, 75, kg, 09/13/21 12:18:00 EDT, Weight Dosing Start Date: 09/13/21 Stop Date: 09/20/21 Status: Ordered polymyxin b 74382 unt/ml / trimethoprim 1 mg/ml ophthalmic solution (1 source) Dihydrofolate Reductase Inhibitor Antibacterial, Polymyxin-class Antibacterial Start: 07-02-2022 End: 07-09-2022 Polytrim 10 mL Soln-Opth 1 drop(s), OPTH, q3hr for 7 day(s), 10 mL, Refill(s) 0, [facility]/pharmacy #[id number], 172, cm, 07/02/22 11:32:00 EDT, Height/Length Dosing, 73.1, kg, 07/02/22 11:32:00 EDT, Weight Dosing Start Date: 07/02/22 Stop Date: 07/09/22 Status: Ordered sertraline 25 mg oral tablet (6 sources) Serotonin Reuptake Inhibitor Start: 01-26-2023 take 1 tablet by mouth once daily sertraline 25 mg Tab 25 mg = 1 tab(s), Oral, Daily, # 30 tab(s), Refills(s) 2, [id number] 170, cm, 12/16/22 14:03:00 EDT, Height/Length Dosing, 71.4, kg, 12/29/22 13:44:00 EDT, Weight Dosing Start Date: 01/26/23 Status: Ordered SUMAtriptan 50 mg oral tablet (1 source) Serotonin-1b and Serotonin-1d Receptor Agonist Start: 03-08-2023 take 1 tablet by mouth once as needed SUMAtriptan (Imitrex) 50 mg tablet Take 1 tablet (50 mg) by mouth 1 time if needed for migraine (as needed). 0 03/08/2023 Active Zofran ODT 4 mg Tab-Dis (3 sources) Start: 02-10-2023 take 1 tablet by mouth three times daily Zofran ODT 4 mg Tab-Dis 4 mg = 1 tab(s), Oral, TID, # 15 tab(s), Refills(s) 0, Pharmacy: [facility]/pharmacy #[id number], 170, cm, 02/10/23 12:01:00 EST, Height/Length [...] day(s), # 30 tab(s), Refills(s) 0, Pharmacy: [facility]/pharmacy #[id number], 172, cm, 11/01/22 13:44:00 EDT, Height/Length [...] day(s), # 30 tab(s), Refills(s) 0, Pharmacy: [facility]/pharmacy #[id number], 170, cm, 09/13/21 12:18:00 EDT, Height/Length Dosing, 75, kg, 09/13/21 12:18:00 EDT, Weight Dosing Start Date: 09/13/21 Stop Date: 09/23/21 Status: Ordered Problems Active Problems Problem Classification Problem Date Documented Da te Episodic/Chronic Abdominal pain (20 sources) Pain in pelvis; Translations: [Pelvic and perineal pain] Onset: 07-01-2021 04-15-2020 Episodic Anxiety disorders (20 sources) Posttraumatic stress disorder; Translations: [Anxiety] Onset: 03-21-2023 07-11-2018 Chronic Cardiac dysrhythmias (17 sources) Palpitations; Translations: [Palpitations] Onset: 11-15-2022 Episodic Disorders of teeth and jaw (1 source) Disorder of teeth AND/OR supporting structures; Translations: [Other specified disorders of teeth and supporting structures] Onset: 09-13-2021 Episodic Fluid and electrolyte disorders (2 sources) Hypokalemia; Translations: [Hypokalemia] Onset: 02-15-2023 Episodic Headache; including migraine (20 sources) Migraine; Translations: [Migraine, unspecified, not intractable, without status migrainosus] Onset: 03-21-2023 05-18-2013 Chronic Headache; including migraine (1 source) Headache; including migraine; Translations: [HEADACHE UNSPECIFIED] Onset: 08-12-2021 Inflammation; infection of eye (except that caused by tuberculosis or sexually transmitteddisease) (20 sources) Conjunctivitis; Translations: [Unspecified conjunctivitis] Onset: 07-02-2022 Episodic Inflammatory diseases of female pelvic organs (20 sources) Vulvovaginitis 11-28-2020 Episodic Menstrual disorders (20 sources) 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 Miscellaneous mental health disorders (20 sources) 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 Mood disorders (20 sources) Depressive disorder; Translations: [Moderate mixed bipolar I disorder] Onset: 11-01-2022 05-18-2013 Chronic Nausea and vomiting (2 sources) Nausea and vomiting; Translations: [Nausea with vomiting, unspecified] Onset: 02-10-2023 Episodic Nonmalignant breast conditions (1 source) Pain of breast; Translations: [Mastodynia] Onset: 11-15-2022 Episodic Nonspecific chest pain (6 sources) Chest pain; Translations: [Chest pain, unspecified] Onset: 03-16-2023 Episodic Other circulatory disease (4 sources) Orthostatic hypotension; Translations: [Orthostatic hypotension] Onset: 03-21-2023 03-21-2023 Episodic Other circulatory disease (1 source) Orthostatic hypotension; Translations: [Orthostatic hypotension] Onset: 03-21-2023 Episodic Other connective tissue disease (20 sources) Hand pain 04-21-2022 Episodic Other female genital disorders (4 sources) Postcoital and contact bleeding; Translations: [POSTCOITAL AND CONTACT BLEEDING] Onset: 01-20-2022 Chronic Other gastrointestinal disorders (3 sources) Diarrhea; Translations: [Diarrhea, unspecified] Onset: 02-10-2023 [...] organs, systems and tissues] Onset: 04-21-2021 Episodic Residual codes; unclassified (1 source) General finding of observation of patient; Translations: [Other general symptoms and signs] Onset: 03-04-2022 Episodic Residual codes; unclassified (1 source) Patient encounter status; Translations: [Other specified health status] Onset: 11-01-2022 Episodic Screening and history of mental health and substance abuse codes (1 source) Ex-smoker; Translations: [Personal history of nicotine dependence] Onset: 03-21-2023 03-21-2023 Episodic Skin and subcutaneous tissue infections (20 [...] of kidney without open wound into abdominal cavity; Translations: [Laceration of unspecified kidney, unspecified degree, initial encounter] Onset: 03-07-2008 09-21-2019 Episodic Headache; including migraine (2 sources) Headache; Translations: [Headache, unspecified] Onset: 09-29-2022 Episodic Immunizations and screening for infectious disease [...] Translations: [SINGLE LIVE ] Onset: 08-24-2021 Episodic Other upper respiratory infections (3 sources) Acute upper respiratory infection; Translations: [Acute upper respiratory infection, unspecified] Onset: 05-11-2022 Episodic Residual codes; unclassified (1 source) 39 [...] Viral infection (1 source) Disease caused by 2018-nCoV; Translations: [COVID-19] Onset: 01-06-2022 03-21-2023 Episodic Viral infection (1 source) Disease caused by 2018-nCoV; Translations: [COVID-19] Onset: 01-06-2022 Results Test Name Value Interpretation Reference Range Facility Consent for Treatmenton 03-09 Consent for Treatment [id number]#1.0 0TIFF Normal [facility] Heart and Vascular Office/Cl inic Noteon 04-06-2023 Heart and Vascular Office/Clinic Note Normal [facility] Comment on above: Result Comment: Elec tronically Signed By: MARK GAMBLE, Huang Wall\.br\Date and Time Signed: 04/06/23 13:17 EST Physician Orderon 04-06-2023 Physician Order [id number]. 00TIFF Normal [facility] Ambulatory Visit Summaryon 0 04-04-2023 Ambulatory Visit Summary Normal [facility] Family Medicine Office/Clini c Noteon 04-04-2023 Family Medicine Office/Clinic Note Normal [facility] Comment on above: Result Comment: Elec tronically Signed By: William Badillo DO\.reina\Date and Time Signed: 04/04/23 12:56 EST Outside Recordson 04-01-2023 Outside Records [id number] 0TIFF Normal [facility] Lab Reportson 03-31-2023 Lab Reports [id number] TIFF Normal [facility] CA tilt table teston 024 CA tilt table test [facility] Main [address] [address] Cardiology Report Signed Patient: Kassie Diallo MR#: [id number] : 1995 Acct:[id number] Age/Sex: 27 / F ADM Date: 03/30/23 Loc: Room: Type: [facility] Attending Dr: Alize Doty MD Copies to: MD Urvashi Alfaro MD Ordering Provider: Alize Doty MD Date of Service: 03/30/23 CA/CA tilt table test: near syncope REASON FOR THE PROCEDURE: Recurrent episode of orthostatic lightheadedness, dizziness and presyncope. PROCEDURE: The patient underwent standard tilt table test. The patient received a total of 250 mL of normal saline, then continuous blood pressure, O2 saturation and heart rate monitoring was established. The patient tilted to the upright position for 25 minutes, during which she demonstrated appropriate and physiologic hemodynamic response to tilt maneuver. Nitroglycerin was administered and close to minute 7, the patient developed profound hypotension and presyncopal symptomatology associated with mild drop in her heart rate consistent with vasodepressor response to nitroglycerin administration. The patient was placed in the supine position with improvement of her symptoms. CONCLUSION: I consider this as a positive tilt table test in a view of induction of presyncopal symptomatology associated with drop in heart rate and inappropriate response to hypotensive effect of nitroglycerin administration. RECOMMENDATIONS: I advised the patient to increase her fluid and salt intake and to continue her long-term followup with her primary feeder catcher. Transcribed By: BRANDON 03/30/23 [id number] Dictated By: Urvashi Medina MD 03/30/23 1226 Signed By: 03/31/23 1010 Normal [facility] HCG ( test) Shirley hyatt Ql (U)Ordered By: Alize Doty on 03-30-2023 HCG ( test) Ql (U) Negative [facility] HCG,Urineon 03-30-2023 Beta HCG ( test) Ql (U) Negative Normal [facility] Comment on above: Result Comment: PERF ORMED BY: [place] [id number] PATHOLOGIST [employer] EMILIE ROBISON M.D. Performed By: #### U HCG #### [facility] [address] Consultation Noteon 03-28-19 Consultation Note [id number]#1.00 TIFF Normal [facility] Event Monitoron 03-22-2023 Event Monitor [id number]. 00TIFF Normal [facility] Event Monitor Normal [facility] Comment on above: Result Comment: Elec tronically Signed By: Radames GAMBLE, Hernandez Gurrola\.br\Date and Time Signed: 03/22/23 10:12 EST ECG 12 lead (Clinic Performe d)on 03-21-2023 [facility] Work Phone: [facility] Work Phone: Auto Diffon 03-16-2023 Basophils/100 WBC (Bld) 0.9 % Normal 0.0-2.0 [facility] Comment on above: Order Comment: Order Added by Discern Expert. Performed By: #### 2 [id number], [id number], 3675393, 1887405, 6241448, 39353503, 5880795, [id number], [id number] ####[facility] [id number] [place] [address] Basophils/Leukocytes Auto (Bld) [Pure # fraction] 0.1 E9/L Normal 0.0-0.2 [facility] Comment on above: Order Comment: Order Added by Discern Expert. Performed By: #### 2 [id number], 1739362, 7927291, 0604781, 5567196, 13746683, 8715523, [id number], [id number] ####[facility] [id number] [place] [address] Eosinophils/100 WBC (Bld) 3.7 % Normal 0.0-8.0 [facility] Comment on above: Order Comment: Order Added by Discern Expert. Performed By: #### 2 693115, 9339144, 7516351, 0008862, 0473511, 74730812, 0484463, 78075070, [id number] ####[address] [place] [address] Eosinophils/Leukocyte s Auto (Bld) [Pure # fraction] 0.2 E9/L Normal 0.0-0.5 [facility] Comment on above: Order Comment: Order Added by Discern Expert. Performed By: #### 2 374840, 7185715, 9272347, 6357390, 7782527, 63761765, 4572934, 36722408, [id number] ####[address] [place] [address] Lymphocytes/100 WBC (Bld) 30.5 % Normal 14.0-50.0 [facility] Comment on above: Order Comment: Order Added by Raúl Expert. Performed By: #### 2 154036, 3335961, 0939316, 9290401, 8041230, 16867200, 5088037, 32760018, [id number] ####[address] [address] Lymphocytes/Leukocyte s Auto (Bld) [Pure # fraction] 1.9 E9/L Normal 1.0-4.0 [facility] Comment on above: Order Comment: Order Added by Raúl Expert. Performed By: #### 2 339356, 4081365, 6245539, 1477359, 4866501, 16878422, 2666745, 80827570, 80005153 ####[address] [place] [address] Monocytes/100 WBC (Bld) 8.4 % Normal 4.0-14.0 [facility] Comment on above: Order Comment: Order Added by Raúl Expert. Performed By: #### 2 945296, 6252094, 7756097, 5495435, 5168683, 12832527, 1299538, 45153165, [id number] ####[address] [place] [address] Monocytes/Leukocytes Auto (Bld) [Pure # fraction] 0.5 E9/L Normal 0.2-1.0 [facility] Comment on above: Order Comment: Order Added by Discern Expert. Performed By: #### 2 141069, 6598098, 2738888, 0020826, 7695623, 11523743, 4405041, 81821945, 77818238 ####[address] [place] [address] Neutrophils/100 WBC (Bld) 56.5 % Normal 36.0-75.0 [facility] Comment on above: Order Comment: Order Added by Discern Expert. Performed By: #### 2 603483, 6258767, 9997176, 5007177, 6363395, 93826553, 7834516, 39585695, 51265111 ####[address] [address] Neutrophils/Leukocyte s Auto (Bld) [Pure # fraction] 3.4 E9/L Normal 2.0-7.5 [facility] Comment on above: Order Comment: Order Added by Discern Expert. Performed By: #### 2 783317, 3273738, 2960080, 5831834, 6070884, 41729099, 0809937, 29823728, [id number] ####[address] [place] [address] BMPon 03-16-2023 Anion gap [Moles/Vol] 13 mmol/L Normal 6-16 [facility] Comment on above: Performed By: #### 2 157947, 0822696, 9384747, 9839460, 4484917, 46215447, 1645328, 52058758, 61737145 ####[address] [place] [address] BUN/Creat Ratio 19 No Units Normal 10-20 [facility] Comment on above: Performed By: #### 2 462929, 9327106, 5072722, 5690683, 7034910, 91899081, 1370740, 41615077, 82476179 ####[facility] [address] [place] [address] Calcium [Mass/Vol] 8.9 mg/dL Normal 8.9-11.1 [facility] Comment on above: Performed By: #### 2 870520, 8012508, 7333909, 8228402, 5908017, 89755029, 7074235, 12760999, 85072632 ####[facility] [address] [place] [address] Chloride [Moles/Vol] 111 mmol/L Normal 101-111 [facility] Comment on above: Performed By: #### 2 365698, 4447231, 1785514, 7452440, 8766763, 30356669, 5359349, 98459545, 38655825 ####[facility] [address] [place] [address] CO2 [Moles/Vol] 21 mmol/L Normal 21-31 [facility] Comment on above: Performed By: #### 2 667594, 8950740, 4406831, 4460234, 8637493, 04536534, 8705488, 42934962, 52051374 ####[facility] [address] [place] [address] Creatinine [Mass/Vol] 0.7 mg/dL Normal 0.5-1.3 [facility] Comment on above: Performed By: #### 2 684040, 6503596, 2578280, 8734566, 6756968, 61096947, 7271646, 73332609, 41098454 ####[facility] [address] [place] [address] Glucose [Mass/Vol] 94 mg/dL Normal 55-199 [facility] Comment on above: Performed By: #### 2 944555, 5409010, 6715942, 4974266, 0787506, 76590445, 2576950, 27460696, 62735558 ####[facility] [address] [place] [address] Potassium [Moles/Vol] 3.9 mmol/L Normal 3.5-5.3 [facility] Comment on above: Performed By: #### 2 692716, 5774229, 8608932, 9479886, 6061530, 36063876, 0628865, 24859581, 65837522 ####[facility] [address] [place] [address] Sodium [Moles/Vol] 141 mmol/L Normal 135-145 [facility] Comment on above: Performed By: #### 2 018470, 1774452, 1515018, 9914250, 0844590, 96218743, 1700714, 48673039, 08132508 ####[facility] [address] [place] [address] Urea nitrogen [Mass/Vol] 13 mg/dL Normal 5-21 [facility] Comment on above: Performed By: #### 2 661465, 5683818, 3249441, 9733880, 1032173, 76929416, 2823056, 18491223, 38014265 ####[facility] [address] [place] [address] [facility] Beta hCG Qnt <1 Normal 1-3 [facility] Comment on above: Result Comment: 'F N ON < 1 - 3'' 0.2 - 1 WEEK = 5 TO 50'' 1 - 2 WEEKS = 50 - 500'' 2 - 3 WEEKS = 100 - 5000'' 3 - 4 WEEKS = 500 - 51157'' 4 - 5 WEEKS = 1000 - 01073'' 5 - 6 WEEKS = 55038 - 464010'' 6 - 8 WEEKS = 91901 - 520222'' 8 - 12 WEEKS = 84682 - 682075' Performed By: #### 2 476182, 8754935, 0091509, 2389691, 8336802, 54654533, 7127463, 26345913, 36854177 ####[facility] [address] [place] [address] CBC w/ Auto Diffon Erythrocyte distribution width (RBC) [Ratio] 13.0 % Normal 10.9-14.2 [facility] Comment on above: Performed By: #### 2 453255, 5974203, 4653392, 9898715, 7561870, 12423047, 0126369, 93006266, 44364222 ####[address] [place] [address] Hematocrit (Bld) [Volume fraction] 37.3 % Normal 34.0-46.0 [facility] Comment on above: Performed By: #### 2 776267, 2011285, 0490371, 1214226, 1452567, 22739445, 0512345, 28317698, 31536681 ####[address] [address] Hemoglobin (Bld) [Mass/Vol] 12.5 g/dL Normal 12.0-16.0 [facility] Comment on above: Performed By: #### 2 917246, 5068834, 8168550, 4286380, 5812817, 26059989, 8650310, 59456595, 87788527 ####[address] [address] MCH (RBC) [Entitic mass] 28.7 pg Normal 27.0-34.0 [facility] Comment on above: Performed By: #### 2 392560, 0370850, 8826473, 3979790, 5466030, 53971599, 9681690, 20939933, 28522776 ####[address] [place] [address] MCHC (RBC) [Mass/Vol] 33.5 g/dL Normal 31.4-36.0 [facility] Comment on above: Performed By: #### 2 315690, 3496670, 0093445, 0472878, 5397679, 23160980, 5033707, 94398815, 98279039 ####[facility] [address] [place] [address] MCV (RBC) [Entitic vol] 85.8 fL Normal 80.0-100.0 [facility] Comment on above: Performed By: #### 2 447060, 7050367, 9571971, 7794503, 4075573, 15168614, 6681917, 50273992, 93547190 ####[address] [place] [address] Platelet mean volume (Bld) [Entitic vol] 8.2 fL Normal 6.4-10.8 [facility] Comment on above: Performed By: #### 2 849445, 3720677, 3243592, 6756239, 4962563, 15945531, 6925542, 34315763, 00510466 ####[address] [address] Platelets (Bld) [#/Vol] 222.0 E9/L Normal 150.0-500.0 [facility] Comment on above: Performed By: #### 2 653337, 6198338, 1107337, 8319655, 2572810, 28847985, 2129835, 03889875, 18903320 ####[address] [address] RBC (Bld) [#/Vol] 4.3 E12/L Normal 4.3-5.9 [facility] Comment on above: Performed By: #### 2 150667, 3738206, 9652967, 7961912, 2530843, 95308724, 0167583, 86861884, 00944359 ####[address] [address] WBC corrected for nucl RBC Auto (Bld) [#/Vol] 6.1 E9/L Normal 4.0-11.0 [facility] Comment on above: Performed By: #### 2 609085, 6543549, 2959214, 2115432, 6190861, 41964111, 9332672, 23988810, 28107365 ####[facility] [id number] CHEMISTRYOrdered By: SYSTEM SYSTEM on 03-16-2023 Albumin [Mass/Vol] 4.1 g/dL Normal 3.3 - 5.0 gm/dL [facility] Albumin/Globulin [Mass ratio] 1.7 {ratio} Normal 1.1 - 2.2 [facility] Alk Phos 71 [iU]/d Normal 21 - 98 Int._Unit/L [facility] ALT 9 [iU]/d Normal 6 - 46 Int._Unit/L [facility] Anion gap [Moles/Vol] 13 mmol/L Normal 6 - 16 mEq/L R emisol Chem AST 10 [iU]/d Normal 5 - 43 Int._Unit/L [facility] Beta hCG Qnt mIU/mL Normal 1 - 3 mIU/mL [facility] Comment on above: Result Comment: 'F N ON < 1 - 3' ' 0.2 - 1 WEEK = 5 TO 50' ' 1 - 2 WEEKS = 50 - 500' ' 2 - 3 WEEKS = 100 - 5000' ' 3 - 4 WEEKS = 500 - 89300' ' 4 - 5 WEEKS = 1000 - 97686' ' 5 - 6 WEEKS = 04607 - 585693' ' 6 - 8 WEEKS = 51867 - 095341' ' 8 - 12 WEEKS = 03143 - 681977' Bili Direct 0.1 mg/dL Normal 0.0 - 0.4 mg/dL [facility] Bili Indirect 0.2 mg/dL Normal 0.1 - 0.9 mg/dL [facility] Bili Total 0.3 mg/dL Normal 0.0 - 1.1 mg/dL [facility] Calcium [Mass/Vol] 8.9 mg/dL Normal 8.9 - 11. 1 mg/dL [facility] Chloride [Moles/Vol] 111 mmol/L Normal 101 - 1 11 mmol/L [facility] CO2 [Moles/Vol] 21 mmol/L Normal 21 - 31 mmol/L [facility] Creatinine [Mass/Vol] 0.7 mg/dL Normal 0.5 - 1.3 mg/dL [facility] eGFR mL/min/1.73 m2 Normal >=59mL/min/1 .73 m2 [facility] Globulin (S) [Mass/Vol] 2.4 g/dL Normal 1.4 - 4.0 gm/dL [facility] Glucose [Mass/Vol] 94 mg/dL Normal 55 - 199 mg/dL [facility] Potassium [Moles/Vol] 3.9 mmol/L Normal 3.5 - 5.3 mmol/L [facility] Protein [Mass/Vol] 6.5 g/dL Normal 6.0 - 7.8 gm/dL [facility] Sodium [Moles/Vol] 141 mmol/L Normal 135 - 145 mmol/L [facility] Troponin pg/mL Low 10.10 - 27.10 pg/mL [facility] Comment on above: Interpretive Data: T he 95% CI (Confidence Interval) PPV (Positive Predictive Value) for myocardial infarction in females is 38 pg/mL, in males 51 pg/mL. The results should be used in conjunction with clinical conditions of myocardial infarction. (Access High Sensitivity Troponin I Instructions For Use, Naty Nino, October 2017) Urea nitrogen [Mass/Vol] 13 mg/dL Normal 5 - 21 mg/dL [facility] Urea nitrogen/Creatinine [Mass ratio] 19 mg/mg Normal 10 - 20 [facility] COAGULATIONOrdered By: Roverto Rodriguez on 03-16-2023 aPTT Coag (PPP) [Time] 37.3 s High 25.1 - 36.5 second(s) [facility] Comment on above: Interpretive Data: Yogesh carver 15 days - 4 weeks 1 - [...] the same coagulation reagent and instrumentation as [facility] [place]. Currently there are no coagulation studies available worldwide for children to 14 days, and no normal ranges. Heparin therapeutic range (represented by Anti-Factor Xa activity of 0.2 - 0.4 U/mL) corresponds to PTT of 56.6 - 109.0 sec. Fibrin D-dimer FEU (PPP) [Mass/Vol] 230 ng/mL FEU Normal 215 - 500 ng/mL FEU [facility] [place] Comment on above: Interpretive Data: T his assay is intended for use as an aid in the diagnosis of DVT or PE. These conditions cannot be excluded with certainty solely on the basis of a D-dimer concentration being within the reference range This D-Dimer assay may be used in conjunction with a non-high clinical pretest probability assessment to exclude deep-vein thrombosis(DVT). For exclusion of venous thrombosis or pulmonary embolism the analyte D-Dimer should not be used as an aid in patients with: Therapeutic dose anticoagulant therapy for >24 hours Fibrinolytic therapy within previous 7 days Trauma or surgery within previous 4 weeks Disseminated malignacies Aortic aneurysm Sepsis, severe infections, pneumonia, severe skin infections Liver cirrhosis INR Coag (PPP) [Relative time] 1.1 {INR} Invalid Interpretation Code [facility] [place] [facility] Comment on above: Interpretive Data: I NR results are specifically intended to assess patients stabilized on long-term Anticoagulation therapy suggested INR s Less Intensive Anticoagulation 2.0 3.0 Conventional Range 3.0 4.5 PT Coag (PPP) [Time] 12.6 s High 9.4 - 1 2.5 second(s) [facility] [place] [facility] Comment on above: Interpretive Data: 1 5 days - 4 weeks 1 - 5 months 6 -11 months 1 5 years 6 10 years 11 -17 years Mean: 11.2 (9.5 12.6) Mean: 11.0 (9.7 12.8) Mean: 11.0 (9.8 13.0) Mean: 11.3 (9.9 13.4) Mean: 11.7 (10.0 14.6) Mean: 11.8 (10.0 - 14.1) Pediatric Reference ranges were obtained from a study by Osmin Jiménez et al. prepared from 1437 samples obtained at 7 different centers using the same coagulation reagent and instrumentation as [facility] [place]. Currently there are no coagulation studies available worldwide for children to 14 days, and no normal ranges. Consent for Treatmenton 03-07 Consent for Treatment [id number] [id number]#1.0 0TIFF Normal [facility] D-Dimeron 03-16-2023 Fibrin D-dimer FEU (PPP) [Mass/Vol] 230 [id number] Normal 215-500 [facility] Comment on above: Result Comment: This assay is intended for use as an aid in the diagnosis of DVT or PE. These conditions cannot be excluded with certainty solely on the basis of a D-dimer concentration being within the reference rangeThis D-Dimer assay may be used in conjunction with a non-high clinical pretest probability assessment to exclude deep-vein thrombosis(DVT). For exclusion of venous thrombosis or pulmonary embolism the analyte D-Dimer should not be used as an aid in patients with:Therapeutic dose anticoagulant therapy for >24 hoursFibrinolytic therapy within previous 7 daysTrauma or surgery within previous 4 weeksDisseminated malignaciesAortic aneurysmSepsis, severe infections, pneumonia, severe skin infectionsLiver cirrhosisPregnancy Performed By: #### 2 588175, 9108859, 5242570, 0199213, 1437925, 37608612, 5365738, 26004830, 54530827 ####[facility] [address] [place] [address] ED Clinical Summaryon 2023 ED Clinical Summary Normal [facility] ED Note-Physicianon 03-16-19 24 ED Note-Physician Normal [facility] Comment on above: Result Comment: Elec tronically Signed By: Quintin Murcia DO.br\Date and Time Signed: 03/16/23 17:41 EST ED Patient Education Noteon 03-16-2023 ED Patient Education Note Normal [facility] ED Patient Summaryon 024 ED Patient Summary Normal [facility] HEMATOLOGYOrdered By: SYSTEM SYSTEM on 03-16-2023 Basophils/100 WBC (Bld) 0.9 % Normal 0.0 - 2.0 % [facility] Basophils/Leukocytes Auto (Bld) [Pure # fraction] 0.1 E9/L Normal 0.0 - 0.2 E9/L [facility] Eosinophils/100 WBC (Bld) 3.7 % Normal 0.0 - 8.0 % [facility] Eosinophils/Leukocyte s Auto (Bld) [Pure # fraction] 0.2 E9/L Normal 0.0 - 0.5 E9/L [facility] Lymphocytes/100 WBC (Bld) 30.5 % Normal 14.0 - 50.0 % [facility] Lymphocytes/Leukocyte s Auto (Bld) [Pure # fraction] 1.9 E9/L Normal 1.0 - 4.0 E9/L [facility] Monocytes/100 WBC (Bld) 8.4 % Normal 4.0 - 14.0 % [facility] Monocytes/Leukocytes Auto (Bld) [Pure # fraction] 0.5 E9/L Normal 0.2 - 1.0 E9/L [facility] Neutrophils/100 WBC (Bld) 56.5 % Normal 36.0 - 75.0 % [facility] Neutrophils/Leukocyte s Auto (Bld) [Pure # fraction] 3.4 E9/L Normal 2.0 - 7.5 E9/L [facility] HEMATOLOGYOrdered By: Marielos Boston on 03-16-2023 Erythrocyte distribution width (RBC) [Ratio] 13.0 % Normal 10.9 - 14.2 % [facility] Hematocrit (Bld) [Volume fraction] 37.3 % Normal 34.0 - 46.0 % [facility] Hemoglobin (Bld) [Mass/Vol] 12.5 g/dL Normal 12.0 - 16.0 gm/dL [facility] MCH (RBC) [Entitic mass] 28.7 pg Normal 27.0 - 34.0 pg [facility] MCHC (RBC) [Mass/Vol] 33.5 g/dL Normal 31.4 - 36.0 gm/dL [facility] MCV (RBC) [Entitic vol] 85.8 fL Normal 80.0 - 100.0 fL [facility] Platelet mean volume (Bld) [Entitic vol] 8.2 fL Normal 6.4 - 10.8 fL [facility] Platelets (Bld) [#/Vol] 222.0 E9/L Normal 150.0 - 500.0 E9/L [facility] RBC (Bld) [#/Vol] 4.3 E12/L Normal 4.3 - 5.9 E12/L [facility] WBC corrected for nucl RBC Auto (Bld) [#/Vol] 6.1 E9/L Normal 4.0 - 11.0 E9/L [facility] Hep Func Panelon 03-16-2023 Albumin/Globulin [Mass ratio] 1.7 {ratio} Normal 1.1-2.2 [facility] Comment on above: Performed By: #### 2 634829, 1566059, 4637306, 7206368, 4087744, 34371150, 3238717, 83237116, 12622150 ####[facility] [address] [place] [address] Globulin (S) [Mass/Vol] 2.4 g/dL Normal 1.4-4.0 [facility] Comment on above: Performed By: #### 2 679994, 1573079, 2421181, 7158774, 5314546, 13050690, 3253331, 77333160, 81374592 ####[facility] [address] [place] [address] Protein [Mass/Vol] 6.5 g/dL Normal 6.0-7.8 [facility] Comment on above: Performed By: #### 2 490359, 7043395, 8404902, 1814106, 9014391, 61490551, 6869516, 21565146, 12698523 ####[facility] [address] [place] [address] Albumin [Mass/Vol] 4.1 g/dL Normal 3.3-5.0 [facility] Comment on above: Performed By: #### 2 302797, 7071186, 0845319, 0151183, 0791703, 04940309, 4126157, 96439336, 19498900 ####[facility] [address] [place] [address] Alk Phos 71 Int._Unit/L Normal 21-98 [facility] Comment on above: Performed By: #### 2 889092, 3183735, 7051771, 7248564, 5833039, 80371097, 7388462, 26374162, 10526073 ####[facility] [address] [place] [address] ALT 9 Int._Unit/L Normal 6-46 [facility] Comment on above: Performed By: #### 2 820870, 8537625, 0418668, 8425512, 2994525, 95939434, 9452297, 62416204, 34794006 ####[facility] [address] [place] [address] AST 10 Int._Unit/L Normal 5-43 [facility] Comment on above: Performed By: #### 2 229379, 1397470, 5540366, 3800142, 4850196, 93065614, 3803154, 53167472, 90714361 ####[address] [place] [address] Bili Direct 0.1 mg/dL Normal 0.0-0.4 [facility] Comment on above: Performed By: #### 2 825713, 4187180, 0617096, 2218469, 5579080, 44483517, 6940487, 05952187, 95027647 ####[address] [place] [address] Bili Indirect 0.2 mg/dL Normal 0.1-0.9 [facility] Comment on above: Performed By: #### 2 517258, 9035924, 8555788, 8719209, 1927563, 34298705, 5547015, 21976934, 76897560 ####[address] [place] [address] Bili Total 0.3 mg/dL Normal 0.0-1.1 [facility] Comment on above: Performed By: #### 2 908252, 7197946, 9728311, 4008608, 8219975, 82331320, 4592809, 09334078, 25181531 ####[facility] [address] [place] [address] PT & PTTon 03-16-2023 aPTT Coag (PPP) [Time] 37.3 second(s) High 25.1-36.5 [facility] Comment on above: Result Comment: Para meter [...] the same coagulation reagent and instrumentation as [facility] [place]. Currently there are no coagulation studies available worldwide for children to 14 days, and no normal ranges. Heparin therapeutic range (represented by Anti-Factor Xa activity of 0.2 - 0.4 U/mL) corresponds to PTT of 56.6 - 109.0 sec. Performed By: #### 2 813062, 4304558, 2037204, 6583630, 1514798, 58687512, 0636528, 01788876, 04210189 ####[facility] [address] [place] [address] INR Coag (PPP) [Relative time] 1.1 {INR} Invalid Interpretation Code [facility] Comment on above: Result Comment: INR results are specifically intended to assess patients stabilized on long-term Anticoagulation therapy suggested INR?s ?Less Intensive Anticoagulation? 2.0 ? 3.0Conventional Range 3.0 ? 4.5 Performed By: #### 2 528477, 1499998, 1180347, 3924392, 1548591, 87269620, 1840328, 77831814, 50327871 ####[facility] [address] [place] [address] PT Coag (PPP) [Time] 12.6 second(s) High 9.4-12.5 [facility] Comment on above: Result Comment: 15 d [...] the same coagulation reagent and instrumentation as [facility]. Currently there are no coagulation studies available worldwide for children to 14 days, and no normal ranges. Performed By: #### 2 865084, 8029358, 7768568, 0632107, 0361431, 54295723, 6430218, 50973305, 02952484 ####[facility] [address] [place] [address] Troponin 0 Hr.on 03-16-2023 Troponin I.cardiac [Mass/Vol] ng/mL Low 10.10-27.10 [facility] Comment on above: Result Comment: The 95% CI (Confidence Interval) PPV (Positive Predictive Value) for myocardial infarction in females is 38 pg/mL, in males 51 pg/mL. The results should be used in conjunction with clinical conditions of myocardial infarction.(Access High Sensitivity Troponin I Instructions For Use, Naty [place], October 2017) Performed By: #### 2 367778, 9539209, 3697476, 3922230, 5039438, 42796215, 9770703, 89820728, 58029304 ####[facility] [address] [place] [address] XR Chest Single Viewon 03-16 XR Chest Single View Normal [facility] eGFRon 03-16-2023 GFR/1.73 sq M.predicted among non-blacks MDRD (S/P/Bld) [Vol rate/Area] mL/min/{1.73_m2} Normal >=59 [facility] Comment on above: Order Comment: Order added by Discern Expert. Performed By: #### 2 401651, 4644958, 2228720, 5070634, 3532562, 16980700, 8498265, 93715569, 54202941 ####[facility] [address] [place] [address] RAD - Ultrasound Reporton RAD - Ultrasound Report [id number]#1.0 0TIFF Normal [facility] Discharge Note - PTon 2022 Discharge Note - PT [id number] 20 [id number]#1.0 0TIFF Normal [facility] Consent for Treatmenton 02-05 Consent for Treatment [id number] [id number]#1.0 0TIFF Normal [facility] Medication Consenton 023 Medication Consent [id number] 20 [id number]#1.0 0TIFF Normal [facility] Ambulatory Visit Summaryon 04-26-2022 Ambulatory Visit Summary Normal [facility] Family Medicine Office/Clini c Noteon 02-23-2023 Family Medicine Office/Clinic Note Normal [facility] Comment on above: Result Comment: Elec tronically Signed By: Will Mora\.br\Date and Time Signed: 02/23/23 10:59 EST ED Note-Physicianon 02-22-20 ED Note-Physician Normal [facility] Comment on above: Result Comment: Elec tronically Signed By: Marleen Tapia PA-C\.br\Date and Time Signed: 02/15/23 18:28 EST\.br\Electronically Co-Signed By: Nicolas Izquierdo DO\.br\Date and Time Co-Signed: 02/21/23 07:20 EST PT - Progress Noteson 2022 PT - Progress Notes [id number] 20 [id number]#1.0 0TIFF Normal [facility] Rota Abon 02-17-2023 Rotavirus Ag IA Ql (Stl) Negative Invalid Interpretation Code Negative [facility] Comment on above: Result Comment: Perf ormed at: [facility] [address] [place] [address] [id number] PhD Filipe Cisneros Performed By: #### 4 96527192, 26517819, 21018047, [id number] ####[facility] [address] [place] [address] Auto Diffon 02-15-2023 Basophils/100 WBC (Bld) 0.8 % Normal 0.0-2.0 [facility] Comment on above: Order Comment: Order Added by Discern Expert. Performed By: #### 2 080047, 4039281, 5259668, 7332112, 95799495, 4268809 ####[facility] [address] [place] [address] Basophils/Leukocytes Auto (Bld) [Pure # fraction] 0.0 E9/L Normal 0.0-0.2 [facility] Comment on above: Order Comment: Order Added by Discern Expert. Performed By: #### 2 654162, 3482723, 2657793, 0634602, 29755997, 8983473 ####[facility] [address] [place] [address] Eosinophils/100 WBC (Bld) 2.2 % Normal 0.0-8.0 [facility] Comment on above: Order Comment: Order Added by Discern Expert. Performed By: #### 2 024345, 8928655, 6499458, 3002415, 84224233, 6127546 ####[facility] [address] [place] [address] Eosinophils/Leukocyte s Auto (Bld) [Pure # fraction] 0.1 E9/L Normal 0.0-0.5 [facility] Comment on above: Order Comment: Order Added by Discern Expert. Performed By: #### 2 448477, 9895652, 3994660, 8979392, 99394670, 4548089 ####[address] [place] [address] Lymphocytes/100 WBC (Bld) 31.6 % Normal 14.0-50.0 [facility] Comment on above: Order Comment: Order Added by Discern Expert. Performed By: #### 2 820802, 4682269, 6205561, 2473731, 50543026, 4902838 ####[address] [address] Lymphocytes/Leukocyte s Auto (Bld) [Pure # fraction] 1.7 E9/L Normal 1.0-4.0 [facility] Comment on above: Order Comment: Order Added by Discern Expert. Performed By: #### 2 278857, 8184014, 1513511, 4885635, 17684809, 7314247 ####[address] [address] Monocytes/100 WBC (Bld) 7.8 % Normal 4.0-14.0 [facility] Comment on above: Order Comment: Order Added by Discern Expert. Performed By: #### 2 040904, 6194002, 7253290, 1248704, 00001857, 1407151 ####[address] [address] Monocytes/Leukocytes Auto (Bld) [Pure # fraction] 0.4 E9/L Normal 0.2-1.0 [facility] Comment on above: Order Comment: Order Added by Discern Expert. Performed By: #### 2 663712, 3836518, 1194157, 6044315, 89200562, 8937895 ####[address] [address] Neutrophils/100 WBC (Bld) 57.6 % Normal 36.0-75.0 [facility] Comment on above: Order Comment: Order Added by Discern Expert. Performed By: #### 2 826100, 2585495, 2414971, 9127009, 29654916, 2733255 ####[facility] [address] [place] [address] Neutrophils/Leukocyte s Auto (Bld) [Pure # fraction] 3.2 E9/L Normal 2.0-7.5 [facility] Comment on above: Order Comment: Order Added by Discern Expert. Performed By: #### 2 179664, 4580250, 9789686, 7526848, 52353534, 0629796 ####[facility] [address] [place] [address] C. diff by PCRon 02-15-2023 Clostridium difficile by PCR Negative Normal Negative [facility] Comment on above: Order Comment: Order added by Discern Expert. Result Comment: This test result should be correlated with clinical presentations and medical history by a healthcare provider to determine its clinical significance. Performed By: #### 4 42270373, 59547778, 18638264, 2050675635 ####[facility] [address] [place] [address] CBC w/ Auto Diffon Erythrocyte distribution width (RBC) [Ratio] 12.9 % Normal 10.9-14.2 [facility] [facility] Comment on above: Performed By: #### 2 668690, 9233508, 7973141, 6293985, 85863451, 4062184 ####[facility] [address] [place] [address] Hematocrit (Bld) [Volume fraction] 36.3 % Normal 34.0-46.0 [facility] Comment on above: Performed By: #### 2 778201, 0342883, 7564950, 3539157, 29615638, 7669943 ####[facility] [address] [place] [address] Hemoglobin (Bld) [Mass/Vol] 12.3 g/dL Normal 12.0-16.0 [facility] Comment on above: Performed By: #### 2 606361, 3519280, 4390797, 5597378, 39012158, 9754822 ####[facility] [address] [place] [address] MCH (RBC) [Entitic mass] 29.2 pg Normal 27.0-34.0 [facility] Comment on above: Performed By: #### 2 097028, 5194946, 2422260, 7681435, 78008072, 2792164 ####[address] [address] MCHC (RBC) [Mass/Vol] 34.0 g/dL Normal 31.4-36.0 [facility] Comment on above: Performed By: #### 2 339622, 1694889, 7813351, 7120076, 55299436, 7438236 ####[address] [address] MCV (RBC) [Entitic vol] 85.8 fL Normal 80.0-100.0 [facility] Comment on above: Performed By: #### 2 905266, 3408741, 9607180, 6514784, 83806169, 6536707 ####[address] [address] Platelet mean volume (Bld) [Entitic vol] 8.3 fL Normal 6.4-10.8 [facility] Comment on above: Performed By: #### 2 734294, 1720457, 6914865, 6396733, 83355489, 1836707 ####[address] [address] Platelets (Bld) [#/Vol] 246.0 E9/L Normal 150.0-500.0 [facility] Comment on above: Performed By: #### 2 776677, 3991754, 9068702, 7176561, 32172962, 9051958 ####[address] [address] RBC (Bld) [#/Vol] 4.2 E12/L Low 4.3-5.9 [facility] Comment on above: Performed By: #### 2 796646, 2223332, 1545495, 0828734, 67644737, 4927945 ####[facility] [address] [place] [address] WBC corrected for nucl RBC Auto (Bld) [#/Vol] 5.5 E9/L Normal 4.0-11.0 [facility] Comment on above: Performed By: #### 2 854938, 4609153, 7146596, 0058461, 06062001, 7467742 ####[facility] [address] [place] [address] CDiff PCRon 02-15-2023 Cdiff Specimen Acceptable Acceptable Normal [facility] Comment on above: Performed By: #### 4 36512378, 92715456, 18890242, 7078199702 ####[facility] [address] [place] [address] Order Cancelled No, PCR to follow Normal [facility] Comment on above: Performed By: #### 4 34291657, 64451225, 69956664, 0608519933 ####[facility] [address] [place] [address] CHEMISTRYOrdered By: SYSTEM SYSTEM on 02-15-2023 Albumin [...] 02-15-2023 Albumin [Mass/Vol] 4.1 g/dL Normal 3.3-5.0 [facility] Comment on above: Performed By: #### 2 385003, 7581721, 6834482, 9630243, 79197075, 6232358 ####[facility] [address] [place] [address] Albumin/Globulin [Mass ratio] 1.9 {ratio} Normal 1.1-2.2 [facility] Comment on above: Performed By: #### 2 049820, 0351697, 0107159, 6543129, 66880910, 6104939 ####[facility] [address] [place] [address] Alk Phos 66 Int._Unit/L Normal 21-98 [facility] Comment on above: Performed By: #### 2 722737, 4354631, 5808959, 0262846, 82733969, 5020859 ####[facility] [address] [place] [address] ALT 11 Int._Unit/L Normal 6-46 [facility] Comment on above: Performed By: #### 2 467659, 4810020, 7560904, 6152494, 46027906, 2788114 ####[facility] [address] [place] [address] Anion gap [Moles/Vol] 11 mmol/L Normal 6-16 [facility] Comment on above: Performed By: #### 2 574253, 6141783, 9807294, 4154972, 35253588, 9009363 ####[place] [address] [place] [address] AST 12 Int._Unit/L Normal 5-43 [facility] Comment on above: Performed By: #### 2 122050, 7617036, 7832563, 3730996, 51877168, 9043270 ####[facility] [address] [place] [address] Bili Total 0.2 mg/dL Normal 0.0-1.1 [facility] Comment on above: Performed By: #### 2 156053, 3171693, 4576703, 4195172, 94773586, 0835597 ####[place] [place] [address] BUN/Creat Ratio 16 No Units Normal 10-20 [facility] Comment on above: Performed By: #### 2 467942, 6502291, 6047532, 6802222, 32953918, 0600145 ####[place] [address] [place] [address] Calcium [Mass/Vol] 8.7 mg/dL Low 8.9-11.1 [facility] Comment on above: Performed By: #### 2 322416, 0779384, 3658238, 1906254, 12218630, 3602087 ####[facility] [place] [address] Chloride [Moles/Vol] 112 mmol/L High 101-111 [facility] Comment on above: Performed By: #### 2 644078, 0731359, 6164094, 0801122, 67101040, 6283773 ####[facility] [address] [place] [address] CO2 [Moles/Vol] 22 mmol/L Normal 21-31 [facility] Comment on above: Performed By: #### 2 554947, 0953993, 9614865, 2561985, 72555518, 4596067 ####[facility] [address] [place] [address] Creatinine [Mass/Vol] 0.7 mg/dL Normal 0.5-1.3 [facility] Comment on above: Performed By: #### 2 840787, 8958119, 5838565, 5242604, 86258326, 8032463 ####[facility] [address] [place] [address] Globulin (S) [Mass/Vol] 2.2 g/dL Normal 1.4-4.0 [facility] Comment on above: Performed By: #### 2 100759, 8694301, 7463009, 0195441, 78394420, 6767703 ####[facility] [address] [place] [address] Glucose [Mass/Vol] 80 mg/dL Normal 55-199 [facility] Comment on above: Performed By: #### 2 464966, 8482671, 5234208, 5288534, 01170351, 3810075 ####[facility] [address] [place] [address] Potassium [Moles/Vol] 3.1 mmol/L Low 3.5-5.3 [facility] Comment on above: Performed By: #### 2 920892, 0896104, 6437310, 6338546, 07170479, 3680141 ####[facility] [address] [place] [address] Protein [Mass/Vol] 6.3 g/dL Normal 6.0-7.8 [facility] Comment on above: Performed By: #### 2 249100, 7034663, 6421798, 6807173, 15924636, 1267192 ####[facility] [address] [place] [address] Sodium [Moles/Vol] 142 mmol/L Normal 135-145 [facility] Comment on above: Performed By: #### 2 271197, 0451056, 0159420, 3403021, 57973403, 9527215 ####[facility] [address] [place] [address] Urea nitrogen [Mass/Vol] 11 mg/dL Normal 5-21 [facility] Comment on above: Performed By: #### 2 688563, 5289040, 9845002, 7677144, 96744443, 0499799 ####[facility] [address] [place] [address] Consent for Treatmenton 02-04 Consent for Treatment [id number]#1.0 0TIFF Normal [facility] Discharge Instructionson Discharge Instructions [id number]#1. 00TIFF Normal [facility] ED Clinical Summaryon 2022 ED Clinical Summary Normal [facility] ED Note-Nursingon 02-15-2023 ED Note-Nursing Patient does not wan t IV at this time Normal [facility] ED Patient Education Noteon 02-15-2023 ED Patient Education Note Normal [facility] ED Patient Summaryon 023 ED Patient Summary Normal [facility] Fecal WBC Lactoferrinon 02-04 Lactoferrin Ql (Stl) Negative Normal Negative [facility] Comment on above: Result Comment: The semi-quantitative detection of elevated levels of fecal lactoferrin is a marker for fecal leukocytes and an indication of intestinal inflammation. Performed By: #### 4 14862646, 94926248, 79479339, 0535339122 ####[facility] [address] [place] [address] HEMATOLOGYOrdered By: SYSTEM SYSTEM on 02-15-2023 Basophils/100 [...] 4.2 E12/L Low 4.3 - 5.9 E12/L FT HemeAutoSS WBC corrected for nucl RBC Auto (Bld) [#/Vol] 5.5 E9/L Normal 4.0 - 11.0 E9/L FT HemeAutoSS Lipase Levelon 02-15-2023 Lipase Lvl 39 unit/L Normal 13-58 [facility] Comment on above: Performed By: #### 2 717602, 0284604, 5906731, 4131803, 22039679, 6938110 ####[facility] [address] [place] [address] MICRO OTHER TESTSOrdered By: Lulu Willis on 02-15-2023 Lactoferrin Ql (Stl) Negative 1 (02/15/23 5:19 PM) Normal Negative [facility] Comment on above: Interpretive Data: Trent menjivar semi-quantitative detection of elevated levels of fecal lactoferrin is a marker for fecal leukocytes and an indication of intestinal inflammation. Magnesiumon 02-15-2023 Magnesium [Mass/Vol] 1.8 mg/dL Normal 1.3-2.4 [facility] Comment on above: Performed By: #### 2 441659, 1736236, 9822491, 9312846, 28394945, 2984525 ####[facility] [address] [place] [address] SEROLOGYOrdered By: Jordy Leiva on 02-15-2023 HCG.beta subunit (U) [Moles/Vol] Negative Normal [facility] U BetaHcg Qualon 02-15-2023 HCG.beta subunit (U) [Moles/Vol] Negative Normal [facility] Comment on above: Performed By: #### 2 7197191, 36973052 ####[facility] [address] [place] [address] UA With Cult Reflexon 2022 Bilirubin Ql (U) Negative Normal Negative [facility] Comment on above: Performed By: #### 2 9079885, 09601303 ####[facility] [address] [place] [address] Calcium oxalate crystals LM Ql (Urine sed) Present Normal [facility] Comment on above: Performed By: #### 2 1292900, 57529306 ####[place] [address] Clarity (U) SL CLOUDY Abnormal Clear [facility] Comment on above: Performed By: #### 2 5701808, 99455061 ####[address] [address] Color (U) YELLOW Normal Yellow [facility] Comment on above: Performed By: #### 2 7894939, 24846180 ####[address] [address] Epithelial cells.squamous LM.HPF (Urine sed) [#/Area] 0-2 Normal 0-2 [facility] Comment on above: Performed By: #### 2 3287137, 00140558 ####[address] [address] Glucose Test strip (U) [Mass/Vol] Negative Normal Negative [facility] Comment on above: Performed By: #### 2 4954906, 41174789 ####[address] [address] Hemoglobin Ql (U) Negative Normal Negative [facility] Comment on above: Performed By: #### 2 4946418, 57033547 ####[address] [address] Ketones (U) [Mass/Vol] TRACE Abnormal Negative [facility] Comment on above: Performed By: #### 2 2702049, 08817977 ####[facility] [address] [place] [address] Ramos.plasma/Lithiu m.RBC (Bld) [Mass ratio] 0-3 Normal 0-3 [facility] Comment on above: Performed By: #### 2 7662849, 03489286 ####[address] [address] Mucus Ql (Urine sed) 2+ Normal [facility] Comment on above: Performed By: #### 2 4044055, 69554011 ####[address] [address] Nitrite Ql (U) Negative Normal Negative [facility] Comment on above: Performed By: #### 2 3353707, 43049092 ####[place] [address] pH (U) 6.0 [pH] Invalid Interpretation Code 5.0-9.0 [facility] Comment on above: Performed By: #### 2 8725503, 82702290 ####[address] [address] Protein (U) [Mass/Vol] Negative Normal Negative [facility] Comment on above: Performed By: #### 2 8374894, 43449075 ####[address] [address] Specific gravity (U) [Rel density] 1.025 Invalid Interpretation Code 1.005-1.030 [facility] Comment on above: Performed By: #### 2 6648522, 56550562 ####[place] [address] Type of Urine collection method Clean Catch Normal [facility] Comment on above: Performed By: #### 2 4405854, 30848136 ####[address] [address] Urobilinogen Qn (U) 1.0 {Ladonna'U}/dL Normal 0.0-1.0 [facility] Comment on above: Performed By: #### 2 5307225, 41542626 ####[facility] [address] [place] [address] WBC Auto Ql (U) Negative Normal Negative [facility] Comment on above: Performed By: #### 2 8447384, 25267591 ####[facility] [address] [place] [address]57 WBC LM.HPF (Urine sed) [#/Area] 0-5 Normal 0-5 [facility] Comment on above: Performed By: #### 2 3797053, 41910491 ####[facility] [address] [place] [address] URINALYSISOrdered By: Isa Leiva on 02-15-2023 Bilirubin Ql (U) Negative (02/15/23 4:13 PM) Normal Negative [facility] UA Auto SS Calcium oxalate crystals LM Ql (Urine sed) Present (02/15/23 4:13 PM) Normal [facility] UA Auto SS Clarity (U) Slightly Cloudy *ABN* (02/15/23 4:13 PM) Invalid Interpretation Code Clear [facility] UA Auto SS Color (U) Yellow (02/15/23 4:13 PM) Normal Yellow [facility] UA Auto SS [...] Interpretation Code Negative [facility] UA Auto SS Ramos.plasma/Lithiu m.RBC (Bld) [Mass ratio] 0-3 /HPF Normal 0-3/HPF [facility] UA Auto SS Mucus Ql (Urine sed) 2+ (02/15/23 4:13 PM) Normal [facility] UA Auto SS Nitrite Ql (U) Negative (02/15/23 4:13 PM) Normal Negative [facility] UA Auto SS pH (U) 6.0 *NA* (02/15/23 4:13 PM) Invalid Interpretation Code 5.0 - 9.0 FT UA Auto SS Protein (U) [Mass/Vol] Negative (02/15/23 4:13 PM) Normal Negative [facility] UA Auto SS Specific gravity (U) [Rel density] 1.025 *NA* (02/15/23 4:13 PM) Invalid Interpretation Code 1.005 - 1.030 [facility] UA Auto SS UA Spec Desc Clean Catch (02/15/23 4:13 PM) Normal [facility] UA Auto SS Urobilinogen Qn (U) 1.3677948 {Ladonna'U}/dL Normal 0.0 - 1.0 EU/dL [facility] UA Auto SS WBC Auto Ql (U) Negative (02/15/23 4:13 PM) Normal Negative [facility] UA Auto SS WBC LM.HPF (Urine sed) [#/Area] 0-5 /HPF Normal 0-5/HPF [facility] UA Auto SS eGFRon 02-15-2023 GFR/1.73 sq M.predicted among non-blacks MDRD (S/P/Bld) [Vol rate/Area] mL/min/{1.73_m2} Normal >=59 [facility] Comment on above: Order Comment: Order added by Discern Expert. Performed By: #### 2 870749, 9642891, 8400396, 3576886, 11954505, 0954057 ####[facility] [address] [place] [address] Consent for Treatmenton 02-04 Consent for Treatment [id number]#1.0 0TIFF Normal [facility] Heart and Vascular Office/Cl inic Noteon 02-14-2023 Heart and Vascular Office/Clinic Note Normal [facility] Comment on above: Result Comment: Elec tronically Signed By: MARK GAMBLE, Huang Tejada.br\Date and Time Signed: 02/14/23 12:01 EST Physician Orderon 02-14-2023 Physician Order [id number]#1.0 0TIFF Normal [facility] Auto Diffon 02-10-2023 Basophils/100 WBC (Bld) 0.4 % Normal 0.0-2.0 [facility] Comment on above: Order Comment: Order Added by Discern Expert. Performed By: #### 2 920079, 37470227, 2057025, 0805539, 0963429, 0923042, 45365371 ####[facility] [address] [place] [address] Basophils/Leukocytes Auto (Bld) [Pure # fraction] 0.1 E9/L Normal 0.0-0.2 [facility] Comment on above: Order Comment: Order Added by Discern Expert. Performed By: #### 2 847344, 02037515, 2812402, 6666075, 8421280, 1119721, 77781900 ####[address] [address] Eosinophils/100 WBC (Bld) 0.7 % Normal 0.0-8.0 [facility] Comment on above: Order Comment: Order Added by Discern Expert. Performed By: #### 2 988178, 37107145, 5245433, 0766425, 3792446, 2644549, 83196342 ####[place] [address] [place] [address] Eosinophils/Leukocyte s Auto (Bld) [Pure # fraction] 0.1 E9/L Normal 0.0-0.5 [facility] Comment on above: Order Comment: Order Added by Discern Expert. Performed By: #### 2 645334, 00371341, 0259302, 6439417, 1715962, 4835565, 56953815 ####[address] [address] Lymphocytes/100 WBC (Bld) 7.9 % Low 14.0-50.0 [facility] Comment on above: Order Comment: Order Added by Discern Expert. Performed By: #### 2 104832, 47771677, 1878282, 6313648, 3960951, 6755390, 66886364 ####[address] [place] [place] [address] Lymphocytes/Leukocyte s Auto (Bld) [Pure # fraction] 1.1 E9/L Normal 1.0-4.0 [facility] Comment on above: Order Comment: Order Added by Discern Expert. Performed By: #### 2 121784, 12700512, 4795199, 9418130, 3215038, 0779374, 78227773 ####[place] [address] [place] [address] Monocytes/100 WBC (Bld) 7.1 % Normal 4.0-14.0 [facility] Comment on above: Order Comment: Order Added by Discern Expert. Performed By: #### 2 703034, 72406347, 8385347, 7527566, 9723112, 5195269, 92791545 ####[address] [address] Monocytes/Leukocytes Auto (Bld) [Pure # fraction] 1.0 E9/L Normal 0.2-1.0 [facility] Comment on above: Order Comment: Order Added by Raúl Expert. Performed By: #### 2 074662, 92586894, 0181328, 2972291, 5600850, 1475968, 01999719 ####[address] [address] Neutrophils/100 WBC (Bld) 83.9 % High 36.0-75.0 [facility] Comment on above: Order Comment: Order Added by Discern Expert. Performed By: #### 2 592758, 93221397, 3758556, 9743630, 4314837, 9573774, 83706404 ####[address] [address] Neutrophils/Leukocyte s Auto (Bld) [Pure # fraction] 11.4 E9/L High 2.0-7.5 [facility] Comment on above: Order Comment: Order Added by Discern Expert. Performed By: #### 2 625719, 63453634, 4872910, 9710539, 3415518, 3355410, 04815040 ####[facility] [address] [place] [address] B hCG Qualon 02-10-2023 Beta HCG ( test) Ql Negative Normal [facility] Comment on above: Performed By: #### 2 651462, 10321548, 4548835, 6413590, 2738828, 6895092, 34467553 ####[facility] [address] [place] [address] BMPon 02-10-2023 Creatinine [Mass/Vol] 0.8 mg/dL Normal 0.5-1.3 [facility] Comment on above: Performed By: #### 2 347671, 22515994, 1563696, 2736468, 9762219, 5365365, 76172157 ####[facility] [address] [place] [address] Urea nitrogen [Mass/Vol] 17 mg/dL Normal 5-21 [facility] Comment on above: Performed By: #### 2 096425, 55657240, 9458081, 3774485, 0470510, 0645350, 50505797 ####[facility] [address] [place] [address] Urea nitrogen/Creatinine [Mass ratio] 21 No Units High 10-20 [facility] Comment on above: Performed By: #### 2 412232, 59902701, 7420621, 9694343, 2162948, 0112809, 98159794 ####[facility] [address] [place] [address] Anion gap [Moles/Vol] 13 mmol/L Normal 6-16 [facility] Comment on above: Performed By: #### 2 197028, 26212453, 3291374, 5219939, 8996452, 1113162, 76765693 ####[facility] [address] [place] [address] Calcium [Mass/Vol] 9.5 mg/dL Normal 8.9-11.1 [facility] Comment on above: Performed By: #### 2 525451, 09680949, 9158090, 3176433, 5586968, 7084523, 29880233 ####[facility] [address] [place] [address] Chloride [Moles/Vol] 111 mmol/L Normal 101-111 [facility] Comment on above: Performed By: #### 2 672502, 13492095, 0951020, 1088927, 7575988, 1569798, 91051035 ####[facility] [address] [place] [address] CO2 [Moles/Vol] 20 mmol/L Low 21-31 [facility] Comment on above: Performed By: #### 2 735995, 51552863, 3131627, 4984845, 1135294, 3181512, 92250313 ####[facility] [address] [place] [address] Glucose [Mass/Vol] 103 mg/dL Normal 55-199 [facility] Comment on above: Result Comment: If t his glucose result represents a fasting glucose, interpretation should refer to the following reference range: 55-99 mg/dL Performed By: #### 2 412245, 68305339, 6506624, 0343554, 5827363, 4687726, 65292123 ####[facility] [address] [place] [address] Potassium [Moles/Vol] 3.9 mmol/L Normal 3.5-5.3 [facility] Comment on above: Performed By: #### 2 758647, 46772257, 7814263, 4690791, 5931784, 8711129, 54848533 ####[facility] [address] [place] [address] Sodium [Moles/Vol] 140 mmol/L Normal 135-145 [facility] Comment on above: Performed By: #### 2 787997, 54115663, 8111678, 0064572, 4077411, 6949590, 11073038 ####[facility] [address] [address] CBC w/ Auto Diffon 3 Erythrocyte distribution width (RBC) [Ratio] 12.8 % Normal 10.9-14.2 [facility] Comment on above: Performed By: #### 2 175473, 66347347, 1140912, 1517760, 3943857, 2361297, 13604202 ####[address] [address] Hematocrit (Bld) [Volume fraction] 43.4 % Normal 34.0-46.0 [facility] Comment on above: Performed By: #### 2 028939, 58849910, 5917809, 0387754, 3768560, 4816002, 18663759 ####[address] [address] Hemoglobin (Bld) [Mass/Vol] 14.3 g/dL Normal 12.0-16.0 [facility] Comment on above: Performed By: #### 2 638510, 85119264, 1076766, 6030545, 9339395, 5235201, 07418170 ####[address] [address] MCH (RBC) [Entitic mass] 28.8 pg Normal 27.0-34.0 [facility] Comment on above: Performed By: #### 2 377774, 39053289, 8088843, 1713680, 9679870, 4212259, 45890183 ####[address] [address] MCHC (RBC) [Mass/Vol] 32.9 g/dL Normal 31.4-36.0 [facility] Comment on above: Performed By: #### 2 829379, 49768042, 0504295, 0618830, 3315201, 4055670, 70531485 ####[address] [address] MCV (RBC) [Entitic vol] 87.5 fL Normal 80.0-100.0 [facility] Comment on above: Performed By: #### 2 301507, 09491634, 2341215, 5174985, 4501447, 8331057, 60301986 ####[facility] [address] [place] [address] Platelet mean volume (Bld) [Entitic vol] 8.9 fL Normal 6.4-10.8 [facility] Comment on above: Performed By: #### 2 958709, 58287140, 0756488, 4708334, 8967583, 5976038, 03369839 ####[facility] [address] [place] [address] Platelets (Bld) [#/Vol] 247.0 E9/L Normal 150.0-500.0 [facility] Comment on above: Performed By: #### 2 061330, 51641641, 3626003, 8365425, 8909932, 4965315, 30445221 ####[address] [address] RBC (Bld) [#/Vol] 5.0 E12/L Normal 4.3-5.9 [facility] Comment on above: Performed By: #### 2 435171, 92940974, 3352862, 5069169, 7527561, 0719476, 45627150 ####[address] [address] WBC corrected for nucl RBC Auto (Bld) [#/Vol] 13.7 E9/L High 4.0-11.0 [facility] Comment on above: Performed By: #### 2 170271, 02754123, 7520478, 8235970, 8677108, 9438501, 23815033 ####[address] [address] CHEMISTRYOrdered By: SYSTEM SYSTEM on 02-10-2023 Albumin [...] 103 mL/min/1.73 m2 Normal >=59mL/min/1 .73 m2 [facility] Chem S Comment on above: Interpretive Data: C hronic kidney disease could be indicated at eGFR's of less than 60 mL/min/1.73m2. Kidney failure is indicated at less than 15 mL/min/1.73m2. Globulin (S) [Mass/Vol] 3.0 g/dL Normal 1.4 - 4.0 gm/dL [facility] Remisol Glucose [Mass/Vol] 103 mg/dL Normal 55 - 199 mg/dL [facility]isol Comment on above: Interpretive Data: I f this glucose result represents a fasting glucose, interpretation should refer to the following reference range: 55-99 mg/dL Lipase [Catalytic activity/Vol] 36 U/L Normal 13 - 58 unit/L [facility] Potassium [Moles/Vol] 3.9 mmol/L Normal 3.5 - 5.3 mmol/L [facility] Remisol Protein [Mass/Vol] 7.4 g/dL Normal 6.0 - 7.8 gm/dL [facility] Sodium [Moles/Vol] 140 mmol/L Normal 135 - 145 mmol/L [facility] Urea nitrogen [Mass/Vol] 17 mg/dL Normal 5 - 21 mg/dL [facility] Urea nitrogen/Creatinine [Mass ratio] 21 mg/mg High 10 - 20 [facility] Consent for Treatmenton Consent for Treatment [id number]. 00TIFF Normal [facility] Discharge Instructionson Discharge Instructions [id number]. 00TIFF Normal [facility] ED Clinical Summaryon 2022 ED Clinical Summary Normal [facility] ED Note-Physicianon 02-11-20 ED Note-Physician Normal [facility] Comment on above: Result Comment: Elec tronically Signed By: Rober Solorzano PA-C\.br\Date and Time Signed: 02/10/23 13:22 EST\.br\Electronically Co-Signed By: Quintin Murcia DO\.br\Date and Time Co-Signed: 02/10/23 17:28 EST ED Patient Education Noteon 02-10-2023 ED Patient Education Note Normal [facility] ED Patient Summaryon 023 ED Patient Summary Normal [facility] HEMATOLOGYOrdered By: SYSTEM SYSTEM on 02-10-2023 Basophils/100 [...] 8.9 fL Normal 6.4 - 10.8 fL [facility] HemeAutoSS Platelets (Bld) [#/Vol] 247.0 E9/L Normal 150.0 - 500.0 E9/L [facility] HemeAutoSS RBC (Bld) [#/Vol] 5.0 E12/L Normal 4.3 - 5.9 E12/L [facility] HemeAutoSS WBC corrected for nucl RBC Auto (Bld) [#/Vol] 13.7 E9/L High 4.0 - 11.0 E9/L [facility] HemeAutoSS Hep Func Panelon 02-10-2023 Bilirubin.indirect [Mass or moles/Vol] UTC Abnormal 0.1-0.9 [facility] Comment on above: Result Comment: Resu lt verified by Discern Rule. Performed result UT (Unable to Calculate) was sent as an Alpha code due the inability to calculate a valid numeric value. Performed By: #### 2 627330, 87774723, 7457101, 0329594, 5188777, 2169133, 85795801 ####[facility] [address] [place] [address] Albumin [Mass/Vol] 4.4 g/dL Normal 3.3-5.0 [facility] Comment on above: Performed By: #### 2 123908, 49963605, 7087659, 6942554, 2777884, 1113543, 99269200 ####[facility] [address] [place] [address] Albumin/Globulin (S) [Mass conc ratio] 1.5 Normal 1.1-2.2 [facility] Comment on above: Performed By: #### 2 275969, 96887658, 8551916, 9337271, 1020079, 1612211, 77368136 ####[facility] [address] [place] [address] ALP [Catalytic activity/Vol] 76 Int._Unit/L Normal 21-98 [facility] Comment on above: Performed By: #### 2 331975, 49188853, 6376597, 5048504, 0220698, 1764018, 58414162 ####[facility] [address] [place] [address] ALT No additional P-5'-P [Catalytic activity/Vol] 15 Int._Unit/L Normal 6-46 [facility] Comment on above: Performed By: #### 2 563081, 85614601, 4898590, 5633066, 2036380, 3742808, 01225470 ####[facility] [address] [place] [address] AST [Catalytic activity/Vol] 15 Int._Unit/L Normal 5-43 [facility] Comment on above: Performed By: #### 2 125739, 95154597, 6391201, 4977143, 3649375, 0964940, 36699967 ####[address] [address] Bilirubin [Mass/Vol] 0.5 mg/dL Normal 0.0-1.1 [facility] Comment on above: Performed By: #### 2 665711, 34563034, 9288945, 5852074, 2131539, 2915021, 47556260 ####[address] [address] Globulin (S) [Mass/Vol] 3.0 g/dL Normal 1.4-4.0 [facility] Comment on above: Performed By: #### 2 946153, 84201175, 1396130, 0302941, 3614298, 6319587, 62890052 ####[facility] [address] [place] [address] Protein [Mass/Vol] 7.4 g/dL Normal 6.0-7.8 [facility] Comment on above: Performed By: #### 2 434762, 94711791, 0494538, 1475509, 8614931, 4738091, 16269083 ####[address] [address] Bilirubin.direct [Mass/Vol] mg/dL Normal 0.1-0.4 [facility] Comment on above: Performed By: #### 2 607457, 17773974, 9136592, 7753611, 6242926, 2069809, 74607649 ####[facility] [address] [place] [address] Lipase Levelon 02-10-2023 Lipase [Catalytic activity/Vol] 36 U/L Normal 13-58 [facility] Comment on above: Performed By: #### 2 521496, 52125192, 7761300, 6987352, 5834972, 0641065, 37888320 ####[facility] [address] [place] [address] Pre-Arrival Noteon 3 Pre-Arrival Note Normal [facility] SEROLOGYOrdered By: Jordy Leiva on 02-10-2023 Beta HCG ( test) Ql Negative (02/10/23 11:58 AM) Normal [facility] [place] Man Sero eGFRon 02-10-2023 GFR/1.73 sq M.predicted among non-blacks MDRD (S/P/Bld) [Vol rate/Area] 103 mL/min/1.73 m2 Normal >=59 [facility] Comment on above: Order Comment: Order added by Discern Expert. Result Comment: School Treasurer lina kidney disease could be indicated at eGFR's of less than 60 mL/min/1.73m2. Kidney failure is indicated at less than 15 mL/min/1.73m2. Performed By: #### 2 402530, 98774168, 2616828, 9271574, 7039015, 2460568, 79267971 ####[facility] [address] [place] [address] Consultation Noteon 02-10-20 Consultation Note [id number] 20 [id number]#1.0 0TIFF Normal [facility] PT - Progress Noteson 2022 PT - Progress Notes [id number]#1.0 0TIFF Normal [facility] Consent for Treatmenton Consent for Treatment [id number] [id number]#1.0 0TIFF Normal [facility] Family Medicine Office/Clini c Noteon 01-26-2023 Family Medicine Office/Clinic Note Normal [facility] Comment on above: Result Comment: Elec tronically Signed By: Will Mora\.br\Date and Time Signed: 01/26/23 13:29 EST Insurance Correspondenceon 03-28-2022 Insurance Correspondence [id number]#1. 00TIFF Normal [facility] Formson 01-24-2023 Forms [facility] NM Hepatobiliary Duct System Imaging w/EFon 01-17-2023 NM Hepatobiliary Duct System Imaging w/EF Normal [facility] Consent for Treatmenton 01-05 Consent for Treatment [id number] [id number]#1.0 0TIFF Normal [facility] Insurance Correspondenceon 03-13-2022 Insurance Correspondence [id number]#1.0 0TIFF [facility] Formson 01-05-2023 Forms [id number] 30 [id number]#1.0 0TIFF Normal [facility] Patient Letter FTon 2022 Patient Letter [facility] Stress EKG Tracingson 2022 Stress EKG Tracings [id number] 02 [id number]#1. 00TIFF [facility] Consent for Treatmenton 12-07 Consent for Treatment [id number] [id number]#1.0 0TIFF [facility] ECG Stress Exerciseon 2022 ECG Stress Exercise Normal [facility] Insurance Correspondenceon Insurance Correspondence [id number]#1. 00TIFF [facility] Ambulatory Visit Summaryon Ambulatory Visit Summary Normal [facility] Family Medicine Office/Clini c Noteon 12-29-2022 Family Medicine Office/Clinic Note Normal [facility] Comment on above: Result Comment: Elec tronically Signed By: Tomasa GAY, Will Rice\.br\Date and Time Signed: 12/29/22 14:42 EDT Consent for Treatmenton 12-05 Consent for Treatment [id number] [id number]#1.0 0TIFF [facility] Consent for Treatment [id number] [id number]#1.0 0TIFF [facility] Heart and Vascular Office/Cl inic Noteon 12-16-2022 Heart and Vascular Office/Clinic Note Normal [facility] Comment on above: Result Comment: Elec tronically Signed By: Huang FLORES MD\.br\Date and Time Signed: 12/16/22 14:32 EDT Physician Orderon 12-16-2022 Physician Order [id number]#1.0 0TIFF [facility] US Gallbladderon 12-16-2022 US Gallbladder Normal [facility] Holter Monitoron 12-06-2022 Holter Monitor [id number] 10 [id number]#1.0 0CD:127 [facility] Holter Monitoron 12-04-2022 Holter Monitor [facility] Comment on above: Result Comment: Elec tronically Signed By: Huang FLORES MD\.br\Date and Time Signed: 12/04/22 08:27 EDT Consultation Noteon 12-03-19 Consultation Note [id number] 90 [id number]#1.0 0CD:127 [facility] Consent for Treatmenton 11-06 Consent for Treatment [id number] [id number]#1.0 0CD:127 [facility] Discharge Instructionson Discharge Instructions [id number]#1. 00CD:127 [facility] ED Clinical Summaryon 2022 ED Clinical Summary [facility] ED Note-Physicianon 12-02-19 ED Note-Physician [facility] Comment on above: Result Comment: Elec tronically Signed By: Winnie Paula DO\.br\Date and Time Signed: 12/01/22 00:09 EDT ED Patient Education Noteon 12-01-2022 ED Patient Education Note Normal [facility] ED Patient Summaryon 023 ED Patient Summary Normal [facility] Consent for Treatmenton 11-06 Consent for Treatment [id number] [id number]#1.0 0CD:127 Normal [facility] Healthon 11-24-19 [facility] Normal [facility] Physician Referralon 023 Physician Referral [id number]#1.0 0CD:127 [facility] Family Medicine Office/Clini c Noteon 11-19-2022 Family Medicine Office/Clinic Note Normal [facility] Comment on above: Result Comment: Elec tronically Signed By: Will Mora\.br\Date and Time Signed: 11/19/22 09:34 EDT Insurance Correspondenceon 0 11-18-2022 Insurance Correspondence [id number]#1. 00CD:127 Normal [facility] Consent for Treatmenton 11-05 Consent for Treatment [id number] [id number]#1.0 0CD:127 Normal [facility] Auto Diffon 11-15-2022 Basophils/100 WBC (Bld) 0.7 % Normal 0.0-2.0 [facility] Comment on above: Order Comment: Order Added by Discern Expert. Performed By: #### 2 471922, 0518166, 8740986, 2491404, 3460567, 0934759, 57613648, 24141385 ####[address] [place] [address] Basophils/Leukocytes Auto (Bld) [Pure # fraction] 0.1 E9/L Normal 0.0-0.2 [facility] Comment on above: Order Comment: Order Added by Raúl Expert. Performed By: #### 2 436720, 4512951, 1296735, 6248630, 7173791, 6222180, 69623699, 31020031 ####[facility] [address] [place] [address] Eosinophils/100 WBC (Bld) 2.3 % Normal 0.0-8.0 [facility] Comment on above: Order Comment: Order Added by Discern Expert. Performed By: #### 2 141130, 5481178, 5972927, 8375416, 6199950, 8401300, 44316165, 39500728 ####[facility] [address] [place] [address] Eosinophils/Leukocyte s Auto (Bld) [Pure # fraction] 0.2 E9/L Normal 0.0-0.5 [facility] Comment on above: Order Comment: Order Added by Raúl Expert. Performed By: #### 2 880176, 9055412, 7515803, 4596773, 6942878, 7989713, 85992191, 44044026 ####[address] [place] [address] Lymphocytes/100 WBC (Bld) 31.3 % Normal 14.0-50.0 [facility] Comment on above: Order Comment: Order Added by Raúl Expert. Performed By: #### 2 177798, 5609731, 9238200, 9161847, 4132167, 2317661, 41625471, 93595006 ####[facility] [address] [place] [address] Lymphocytes/Leukocyte s Auto (Bld) [Pure # fraction] 2.2 E9/L Normal 1.0-4.0 [facility] Comment on above: Order Comment: Order Added by Raúl Expert. Performed By: #### 2 935282, 7436437, 1704176, 4263853, 4609187, 9691312, 73830494, 49411240 ####[facility] [address] [place] [address] Monocytes/100 WBC (Bld) 7.5 % Normal 4.0-14.0 [facility] Comment on above: Order Comment: Order Added by Discern Expert. Performed By: #### 2 900653, 0275301, 2070920, 8074352, 7714084, 3315764, 53792603, 27819495 ####[address] [place] [address] Monocytes/Leukocytes Auto (Bld) [Pure # fraction] 0.5 E9/L Normal 0.2-1.0 [facility] Comment on above: Order Comment: Order Added by Raúl Expert. Performed By: #### 2 170310, 0494238, 9798716, 6889518, 3403934, 1558138, 85288329, 46105852 ####[address] [address] Neutrophils/100 WBC (Bld) 58.2 % Normal 36.0-75.0 [facility] Comment on above: Order Comment: Order Added by Discern Expert. Performed By: #### 2 544838, 2394973, 0946993, 8415892, 1193595, 5120572, 30322845, 96870129 ####[address] [address] Neutrophils/Leukocyte s Auto (Bld) [Pure # fraction] 4.1 E9/L Normal 2.0-7.5 [facility] Comment on above: Order Comment: Order Added by Discern Expert. Performed By: #### 2 794407, 9999747, 7396328, 9980148, 6946767, 6628219, 63068613, 62713293 ####[address] [place] [address] BNPon 11-15-2022 Int Ctr BNP Pass Normal [facility] Comment on above: Performed By: #### 2 926278, 6366477, 6904005, 4119290, 5974824, 6192009, 15940485, 33488329 ####[address] [address] Natriuretic peptide B (Bld) [Mass/Vol] 12 pg/mL Normal 5-80 [facility] Comment on above: Performed By: #### 2 711791, 4639936, 4453695, 9418883, 6313327, 2651608, 13460250, 04640019 ####[facility] [address] [place] [address] CBC w/ Auto Diffon 3 Erythrocyte distribution width (RBC) [Ratio] 13.1 % Normal 10.9-14.2 [facility] Comment on above: Performed By: #### 2 472063, 2179950, 0994152, 6083896, 1279598, 2987568, 20205983, 84797779 ####[facility] [address] [place] [address] Hematocrit (Bld) [Volume fraction] 40.8 % Normal 34.0-46.0 [facility] Comment on above: Performed By: #### 2 052120, 6635902, 1068697, 0295295, 7176762, 0992904, 65355321, 51713375 ####[facility] [address] [place] [address] Hemoglobin (Bld) [Mass/Vol] 13.8 g/dL Normal 12.0-16.0 [facility] Comment on above: Performed By: #### 2 902089, 1130512, 5358434, 1502179, 4365355, 8265871, 48876931, 92074592 ####[facility] [address] [place] [address] MCH (RBC) [Entitic mass] 29.4 pg Normal 27.0-34.0 [facility] Comment on above: Performed By: #### 2 469097, 0868968, 2989386, 2170521, 1177060, 1822629, 61173150, 32185582 ####[facility] [address] [place] [address] MCHC (RBC) [Mass/Vol] 33.8 g/dL Normal 31.4-36.0 [facility] Comment on above: Performed By: #### 2 711344, 3287269, 0613365, 9746029, 8118449, 6892066, 90586585, 54500799 ####[facility] [address] [place] [address] MCV (RBC) [Entitic vol] 87.0 fL Normal 80.0-100.0 [facility] Comment on above: Performed By: #### 2 032696, 6633011, 1394177, 9501455, 1386161, 6746155, 05504308, 58901983 ####[address] [address] Platelet mean volume (Bld) [Entitic vol] 10.4 fL Normal 6.4-10.8 [facility] Comment on above: Performed By: #### 2 707711, 8410756, 9428628, 5547303, 2901533, 5353322, 86397829, 10261023 ####[address] [address] Platelets (Bld) [#/Vol] 223.0 E9/L Normal 150.0-500.0 [facility] Comment on above: Performed By: #### 2 924009, 5313180, 3042114, 0466175, 2682290, 4889803, 34546653, 06480121 ####[address] [address] RBC (Bld) [#/Vol] 4.7 E12/L Normal 4.3-5.9 [facility] Comment on above: Performed By: #### 2 783306, 8139142, 0803408, 1503703, 0701578, 5033516, 06823257, 91368387 ####[address] [address] WBC corrected for nucl RBC Auto (Bld) [#/Vol] 7.1 E9/L Normal 4.0-11.0 [facility] Comment on above: Performed By: #### 2 559550, 2789463, 4721929, 0974303, 4086362, 3398603, 86179850, 96219294 ####[facility] [address] [place] [address] CHEMISTRYOrdered By: SYSTEM SYSTEM on 11-15-2022 Albumin [...] 3.0 g/dL Normal 1.4 - 4.0 gm/dL [facility] Remisol Glucose [Mass/Vol] 86 mg/dL Normal 55 - 199 mg/dL [facility] Magnesium [Mass/Vol] 2.2 mg/dL Normal 1.3 - 2 .4 mg/dL [facility] Potassium [Moles/Vol] 4.4 mmol/L Normal 3.5 - 5.3 mmol/L [facility] Protein [Mass/Vol] 7.4 g/dL Normal 6.0 - 7.8 gm/dL [facility] Sodium [Moles/Vol] 140 mmol/L Normal 135 - 145 mmol/L [facility] Remisol Troponin I.cardiac [Mass/Vol] pg/mL Low 10.10 [...] 12 pg/mL Normal 5 - 80 pg/mL [facility] HemeManSS CMPon 11-15-2022 Albumin [Mass/Vol] 4.4 g/dL Normal 3.3-5.0 [facility] Comment on above: Performed By: #### 2 282540, 5075864, 4029394, 6076121, 2166389, 7428573, 83413270, 91438290 ####[facility] [address] [place] [address] Albumin/Globulin (S) [Mass conc ratio] 1.5 Normal 1.1-2.2 [facility] Comment on above: Performed By: #### 2 722167, 0810673, 1665448, 7382259, 6302119, 9025579, 85822511, 77139277 ####[facility] [address] [place] [address] ALP [Catalytic activity/Vol] 89 Int._Unit/L Normal 21-98 [facility] Comment on above: Performed By: #### 2 784150, 5147069, 0598341, 3687044, 9092402, 0936915, 26421323, 13373633 ####[facility] [address] [place] [address] ALT No additional P-5'-P [Catalytic activity/Vol] 14 Int._Unit/L Normal 6-46 [facility] Comment on above: Performed By: #### 2 346639, 8529227, 1425196, 2181847, 7701903, 9586949, 74480439, 85435202 ####[facility] [address] [place] [address] Anion gap [Moles/Vol] 9 mmol/L Normal 6-16 [facility] Comment on above: Performed By: #### 2 363214, 1253303, 4423025, 7464044, 3117196, 7656895, 84648983, 30798299 ####[facility] [address] [place] [address] AST [Catalytic activity/Vol] 14 Int._Unit/L Normal 5-43 [facility] Comment on above: Performed By: #### 2 544129, 3093039, 8291273, 1331731, 8842447, 0288075, 22751298, 60227888 ####[facility] [address] [place] [address] Bilirubin [Mass/Vol] 0.4 mg/dL Normal 0.0-1.1 [facility] Comment on above: Performed By: #### 2 182503, 9318981, 5624771, 8368036, 4900652, 4355090, 94656063, 41438056 ####[facility] [address] [place] [address] Calcium [Mass/Vol] 9.9 mg/dL Normal 8.9-11.1 [facility] Comment on above: Performed By: #### 2 856589, 8431231, 8955042, 7071802, 1759719, 1124563, 41624631, 35426856 ####[facility] [address] [place] [address] Chloride [Moles/Vol] 112 mmol/L High 101-111 [facility] Comment on above: Performed By: #### 2 397696, 6247179, 1899334, 2207135, 7612494, 8940625, 75703018, 14179041 ####[facility] [address] [place] [address] CO2 [Moles/Vol] 23 mmol/L Normal 21-31 [facility] Comment on above: Performed By: #### 2 715376, 4270645, 9234640, 7609756, 7546670, 6308561, 35463861, 04673802 ####[facility] [address] [place] [address] Creatinine [Mass/Vol] 0.8 mg/dL Normal 0.5-1.3 [facility] Comment on above: Performed By: #### 2 623616, 4941825, 3567764, 0274343, 9371573, 6297891, 61567109, 86302171 ####[facility] [address] [place] [address] Globulin (S) [Mass/Vol] 3.0 g/dL Normal 1.4-4.0 [facility] Comment on above: Performed By: #### 2 775346, 9765313, 9618264, 8648012, 5153955, 0465543, 01063286, 18691742 ####[facility] [address] [place] [address] Glucose [Mass/Vol] 86 mg/dL Normal 55-199 [facility] Comment on above: Result Comment: If t his glucose result represents a fasting glucose, interpretation should refer to the following reference range: 55-99 mg/dL Performed By: #### 2 779647, 4080235, 9181275, 9447264, 3859445, 2795036, 09193030, 84524858 ####[facility] [address] [place] [address] Potassium [Moles/Vol] 4.4 mmol/L Normal 3.5-5.3 [facility] Comment on above: Performed By: #### 2 940521, 2733875, 0632360, 4145084, 9613720, 4635267, 82853194, 35512851 ####[facility] [address] [place] [address] Protein [Mass/Vol] 7.4 g/dL Normal 6.0-7.8 [facility] Comment on above: Performed By: #### 2 924299, 4732326, 0843836, 8220888, 5961190, 7298682, 62630438, 41972958 ####[facility] [address] [place] [address] Sodium [Moles/Vol] 140 mmol/L Normal 135-145 [facility] Comment on above: Performed By: #### 2 132383, 0448281, 0284380, 2546885, 1487634, 2061427, 96545240, 61337627 ####[facility] [address] [place] [address] Urea nitrogen [Mass/Vol] 13 mg/dL Normal 5-21 [facility] Comment on above: Performed By: #### 2 346338, 5149843, 6191483, 2659149, 9092479, 0094718, 22036027, 88166141 ####[facility] [address] [place] [address] Urea nitrogen/Creatinine [Mass ratio] 16 No Units Normal 10-20 [facility] Comment on above: Performed By: #### 2 452111, 3007697, 4393405, 1055248, 1729418, 9267794, 12793497, 72670583 ####[facility] [address] [place] [address] Family Medicine Office/Clini c Noteon 11-15-2022 [facility] Medicine Office/Clinic Note Normal [facility] Comment on above: Result Comment: Elec tronically Signed By: Chadwick IVY, Drake Gottlieb\Date and Time Signed: 11/15/22 11:33 EDT HEMATOLOGYOrdered By: SYSTEM SYSTEM on 09-11-2023 Basophils/100 WBC (Bld) 0.7 % Normal 0.0 [...] Comment on above: Performed By: #### 2 974622, 7987112, 9986766, 7735075, 3113143, 7012115, 94670931, 05687793 ####[facility] [address] [place] [address] PT - Progress Noteson 2022 PT - Progress Notes [id number]#1.00 CD:127 Normal [facility] Patient Educationon 11-16-19 Patient Education Normal [facility] Physician Orderon 11-15-2022 Physician Order [id number]#1.0 0CD:127 Normal [facility] TSHon 11-15-2022 TSH Qn 2.24 m[IU]/L Normal 0.34-5.60 [facility] Comment on above: Performed By: #### 2 080442, 9486177, 3960669, 5031983, 1449007, 4611175, 64583822, 68559196 ####[facility] [address] [place] [address] Troponinon 11-15-2022 Troponin I.cardiac [Mass/Vol] ng/mL Low 10.10-27.10 [facility] Comment on above: Result Comment: The 95% CI (Confidence Interval) PPV (Positive Predictive Value) for myocardial infarction in females is 38 pg/mL, in males 51 pg/mL. The results should be used in conjunction with clinical conditions of myocardial infarction.(Access High Sensitivity Troponin I Instructions For Use, [place], October 2017) Performed By: #### 2 978482, 5952250, 8986477, 7254161, 1300471, 3961541, 48010567, 34287463 ####[facility] [address] [place] [address] eGFRon 11-15-2022 GFR/1.73 sq M.predicted among non-blacks MDRD (S/P/Bld) [Vol rate/Area] 104 mL/min/1.73 m2 Normal >=59 [facility] Comment on above: Order Comment: Order added by Discern Expert. Result Comment: School Treasurer lina kidney disease could be indicated at eGFR's of less than 60 mL/min/1.73m2. Kidney failure is indicated at less than 15 mL/min/1.73m2. Performed By: #### 2 476426, 7635259, 3894678, 0319275, 3385530, 5183088, 41350915, 33806430 ####[facility] [address] [place] [address] Insurance Correspondenceon 0 11-11-2022 Insurance Correspondence [id number]#1. 00CD:127 Normal [facility] Ambulatory Visit Summaryon 0 11-09-2022 Ambulatory Visit Summary Normal [facility] Family Medicine Office/Clini c Noteon 11-09-2022 Family Medicine Office/Clinic Note Normal [facility] Comment on above: Result Comment: Elec tronically Signed By: Will Mora\.reina\Date and Time Signed: 11/09/22 12:37 EDT Physician Referralon 023 Physician Referral [id number]#1.00 CD:127 Normal [facility] Discharge Instructionson Discharge Instructions [id number]#1.0 0CD:127 Normal [facility] Family Medicine Office/Clini c Noteon 11-03-2022 Family Medicine Office/Clinic Note Normal [facility] Comment on above: Result Comment: Elec tronically Signed By: GIOVANNI HAWTHORNE PA-C\.br\Date and Time Signed: 11/03/22 11:04 EDT Patient Educationon 11-04-19 Patient Education Normal [facility] Provider Letteron 11-03-2022 Provider Letter Normal [facility] Provider Letter Normal [facility] Provider Letter Normal [facility] CHEMISTRYOrdered By: SYSTEM SYSTEM on 11-02-2022 [...] (Bld) [Mass fraction] 5.2 % Normal <=5.9% FT ChemAutoSS Consultation Noteon 11-03-19 Consultation Note Normal [facility] Comment on above: Result Comment: Elec tronically Signed By: Cherelle BURDEN, Sailaja Hilliard\.br\Date and Time Signed: 11/02/22 07:03 EDT\.br\Electronically Co-Signed By: Wilbert Viveros DO\.br\Date and Time Co-Signed: 11/02/22 09:29 EDT Discharge Note-Nursingon Discharge Note-Nursing Normal [facility] [id number] 11-02-2022 HbA1c (Bld) [Mass fraction] 5.2 % Normal <=5.9 [facility] Comment on above: Performed By: #### 7 [id number], [id number], 6688675 ####[facility] [address] [place] [address] Inpatient Clinical Summaryon 11-02-2022 Inpatient Clinical Summary Normal [facility] Inpatient Patient Summaryon 11-02-2022 Inpatient Patient Summary Normal [facility] Interdisciplinary Note - Jeff e Manageron 11-02-2022 Interdisciplinary Note - Count Team Clerk Normal [facility] Comment on above: Result Comment: Elec tronically [...] this date. DC inpatient OT services. Normal [facility] Interdisciplinary Note - Soc ial Workeron 11-02-2022 Interdisciplinary Note - Stock Feeder Normal [facility] Lipid Panelon 11-02-2022 Cholesterol [Mass/Vol] 161 mg/dL Normal 120-200 [facility] Comment on above: Performed By: #### 7 [id number], [id number], 6339677 ####[facility] [address] [place] [address] Cholesterol in HDL [Mass/Vol] 36 mg/dL Invalid Interpretation Code [facility] Comment on above: Result Comment: HDL > or equal to 60 mg/dL: Low cardiovascular riskHDL < 40 mg/dL : High cardiovascular risk Performed By: #### 7 [id number], 53905652, 8863454 ####[facility] [address] [place] [facility] [place] [address] Cholesterol in LDL [Mass/Vol] 103 mg/dL Normal <=129 [facility] Comment on above: Performed By: #### 7 [id number], 96693215, 5330647 ####[facility] [address] [facility] [place] [address] Cholesterol in VLDL [Mass/Vol] 14 mg/dL Normal 7-40 [facility] Comment on above: Performed By: #### 7 [id number], 77831695, 2912390 ####[facility] [address] [place] [address] Triglyceride [Mass/Vol] 71 mg/dL Normal <=149 [facility] Comment on above: Performed By: #### 7 [id number], 85913610, 9626796 ####[facility] [address] [place] [address] Patient Education - Texton 0 11-02-2022 Patient Education - Text Normal [facility] TSH With T4fr Reflexon 11-02 TSH Qn 2.85 m[IU]/L Normal 0.34-5.60 [facility] Comment on above: Performed By: #### 7 [id number], [id number], 5824804 ####[facility] [address] [place] [address] Auto Diffon 11-01-2022 Basophils/100 WBC (Bld) 1.3 % Normal 0.0-2.0 [facility] Comment on above: Order Comment: Order Added by Discern Expert. Performed By: #### 2 728137, 52721619, 80114443, 6240630, 5557937, 60194698 ####[facility] [address] [place] [address] Basophils/Leukocytes Auto (Bld) [Pure # fraction] 0.1 E9/L Normal 0.0-0.2 [facility] Comment on above: Order Comment: Order Added by Discern Expert. Performed By: #### 2 093648, 04340750, 04569184, 9668519, 0181975, 54594083 ####[facility] [address] [place] [address] Eosinophils/100 WBC (Bld) 2.7 % Normal 0.0-8.0 [facility] Comment on above: Order Comment: Order Added by Discern Expert. Performed By: #### 2 241958, 40290217, 35952768, 6512179, 7064624, 57409474 ####[facility] [address] [place] [address] Eosinophils/Leukocyte s Auto (Bld) [Pure # fraction] 0.2 E9/L Normal 0.0-0.5 [facility] Comment on above: Order Comment: Order Added by Discern Expert. Performed By: #### 2 203846, 82920388, 21941364, 8416193, 3538473, 96497908 ####[facility] [address] [place] [address] Lymphocytes/100 WBC (Bld) 30.1 % Normal 14.0-50.0 [facility] Comment on above: Order Comment: Order Added by Discern Expert. Performed By: #### 2 830542, 07922052, 30226389, 2100482, 0649096, 97350388 ####[address] [place] [address] Lymphocytes/Leukocyte s Auto (Bld) [Pure # fraction] 2.3 E9/L Normal 1.0-4.0 [facility] Comment on above: Order Comment: Order Added by Discern Expert. Performed By: #### 2 731203, 02156998, 56360215, 5809175, 6030538, 72504032 ####[address] [place] [address] Monocytes/100 WBC (Bld) 7.1 % Normal 4.0-14.0 [facility] Comment on above: Order Comment: Order Added by Discern Expert. Performed By: #### 2 547800, 68329849, 75300492, 2382321, 0958494, 27319929 ####[facility] [address] [place] [address] Monocytes/Leukocytes Auto (Bld) [Pure # fraction] 0.5 E9/L Normal 0.2-1.0 [facility] Comment on above: Order Comment: Order Added by Raúl Expert. Performed By: #### 2 610538, 13566400, 65502511, 8464513, 8327058, 21126438 ####[facility] [address] [place] [address] Neutrophils/100 WBC (Bld) 58.8 % Normal 36.0-75.0 [facility] Comment on above: Order Comment: Order Added by Discern Expert. Performed By: #### 2 022777, 17954582, 59530135, 3586874, 1642154, 85564774 ####[facility] [address] [place] [address] Neutrophils/Leukocyte s Auto (Bld) [Pure # fraction] 4.5 E9/L Normal 2.0-7.5 [facility] Comment on above: Order Comment: Order Added by Discern Expert. Performed By: #### 2 812279, 23274958, 76669333, 7013099, 9427285, 95062966 ####[facility] [address] [place] [address] BMPon 11-01-2022 Creatinine [Mass/Vol] 0.8 mg/dL Normal 0.5-1.3 [facility] Comment on above: Performed By: #### 2 537935, 32349694, 27477177, 6973164, 0933056, 34389634 ####[facility] [address] [place] [address] Urea nitrogen [Mass/Vol] 12 mg/dL Normal 5-21 [facility] Comment on above: Performed By: #### 2 078218, 83541876, 88573900, 5159118, 2779157, 39726843 ####[facility] [address] [place] [address] Urea nitrogen/Creatinine [Mass ratio] 15 No Units Normal 10-20 [facility] Comment on above: Performed By: #### 2 825227, 47905770, 71868135, 4095871, 7457246, 28947040 ####[facility] [address] [place] [address] Anion gap [Moles/Vol] 10 mmol/L Normal 6-16 [facility] Comment on above: Performed By: #### 2 906389, 18914181, 87883873, 6439505, 4196316, 70218633 ####[facility] [address] [place] [address] Calcium [Mass/Vol] 9.5 mg/dL Normal 8.9-11.1 [facility] Comment on above: Performed By: #### 2 572732, 39522566, 26712397, 0472117, 1641702, 09173017 ####[facility] [address] [place] [address] Chloride [Moles/Vol] 114 mmol/L High 101-111 [facility] Comment on above: Performed By: #### 2 313831, 13173459, 15060487, 3541932, 2764065, 46687268 ####[facility] [address] [place] [address] CO2 [Moles/Vol] 20 mmol/L Low 21-31 [facility] Comment on above: Performed By: #### 2 132609, 14324077, 60711082, 7602128, 1475206, 86516917 ####[facility] [address] [place] [address] Glucose [Mass/Vol] 99 mg/dL Normal 55-199 [facility] Comment on above: Result Comment: If t his glucose result represents a fasting glucose, interpretation should refer to the following reference range: 55-99 mg/dL Performed By: #### 2 409327, 04879277, 33220208, 8903563, 4472906, 89754201 ####[facility] [address] [place] [address] Potassium [Moles/Vol] 3.9 mmol/L Normal 3.5-5.3 [facility] Comment on above: Performed By: #### 2 047680, 59584596, 87443165, 2863206, 9108259, 67322343 ####[facility] [address] [place] [address] Sodium [Moles/Vol] 140 mmol/L Normal 135-145 [facility] Comment on above: Performed By: #### 2 347673, 63685421, 36704198, 1015894, 5272675, 00043665 ####[address] [place] [address] CBC w/ Auto Diffon 3 Erythrocyte distribution width (RBC) [Ratio] 13.5 % Normal 10.9-14.2 [facility] Comment on above: Performed By: #### 2 918635, 74091468, 00894097, 5330891, 4071706, 28114257 ####[facility] [address] [place] [address] Hematocrit (Bld) [Volume fraction] 40.4 % Normal 34.0-46.0 [facility] Comment on above: Performed By: #### 2 298837, 60939451, 74684968, 9636538, 3088374, 90595964 ####[address] [place] [address] Hemoglobin (Bld) [Mass/Vol] 13.7 g/dL Normal 12.0-16.0 [facility] Comment on above: Performed By: #### 2 223194, 36498237, 36192365, 0461810, 4423767, 99907329 ####[address] [place] [address] MCH (RBC) [Entitic mass] 29.5 pg Normal 27.0-34.0 [facility] Comment on above: Performed By: #### 2 998233, 98289873, 64508697, 9696843, 7044637, 06637421 ####[facility] [address] [place] [address] MCHC (RBC) [Mass/Vol] 34.0 g/dL Normal 31.4-36.0 [facility] Comment on above: Performed By: #### 2 704147, 21894315, 26936424, 3454109, 3130139, 22506658 ####[facility] [address] [place] [address] MCV (RBC) [Entitic vol] 86.7 fL Normal 80.0-100.0 [facility] Comment on above: Performed By: #### 2 082211, 48767182, 63277665, 0601003, 1169660, 05752903 ####[facility] [address] [place] [address] Platelet mean volume (Bld) [Entitic vol] 8.3 fL Normal 6.4-10.8 [facility] Comment on above: Performed By: #### 2 234935, 84445716, 21130755, 6583920, 1308273, 91766807 ####[address] [place] [address] Platelets (Bld) [#/Vol] 236.0 E9/L Normal 150.0-500.0 [facility] Comment on above: Performed By: #### 2 344860, 04904051, 84518493, 0903040, 1503607, 55644674 ####[address] [place] [address] RBC (Bld) [#/Vol] 4.7 E12/L Normal 4.3-5.9 [facility] Comment on above: Performed By: #### 2 609814, 03482505, 09808321, 8090045, 9860949, 41203461 ####[address] [place] [address] WBC corrected for nucl RBC Auto (Bld) [#/Vol] 7.7 E9/L Normal 4.0-11.0 [facility] Comment on above: Performed By: #### 2 351491, 11274385, 93101724, 9445761, 6991621, 96238085 ####[address] [place] [address] CHEMISTRYOrdered By: SYSTEM SYSTEM on 11-01-2022 Anion gap [Moles/Vol] 10 mmol/L Normal 6 - 16 mEq/L [facility] Remisol Calcium [Mass/Vol] 9.5 mg/dL Normal 8.9 - 11. 1 mg/dL [facility] Remisol Chloride [Moles/Vol] 114 mmol/L High 101 - 1 11 mmol/L [facility] Remisol CO2 [Moles/Vol] 20 mmol/L Low 21 - 31 mmol/L [facility] Remisol Creatinine [Mass/Vol] 0.8 mg/dL Normal 0.5 - 1.3 mg/dL [facility] Remisol GFR/1.73 sq M.predicted among non-blacks MDRD (S/P/Bld) [Vol rate/Area] 104 mL/min/1.73 m2 Normal >=59mL/min/1 .73 m2 [facility] Chem S Glucose [Mass/Vol] 99 mg/dL Normal 55 - 199 mg/dL [facility] Remisol Potassium [Moles/Vol] 3.9 mmol/L Normal 3.5 - 5.3 mmol/L [facility] Remisol Sodium [Moles/Vol] 140 mmol/L Normal 135 - 145 mmol/L [facility] Remisol Troponin I.cardiac [Mass/Vol] 2.50 pg/mL Low 10.10 - 27.10 pg/mL [facility] Remisol Urea nitrogen [Mass/Vol] 12 mg/dL Normal 5 - 21 mg/dL [facility] Remisol Urea nitrogen/Creatinine [Mass ratio] 15 mg/mg Normal 10 - 20 [facility] Remisol CHEMISTRYOrdered By: Lab ROP User on 11-01-2022 Glucose [Mass/Vol] 109 mg/dL High 55 - 99 mg/dL [facility] POC Subsection POC Device SN [id number] Invalid Interpretation Code [facility] POC Subsection POC User ID [id number] Invalid Interpretation Code [facility] POC Subsection POC Username [email or web address] [email or web address] Invalid Interpretation Code [facility] POC Subsection COAGULATIONOrdered By: Marce Douglass on 11-01-2022 aPTT Coag (PPP) [Time] 34.8 s Normal 25.1 - 36.5 second(s) [facility] Auto Coag INR Coag (PPP) [Relative time] 1.1 {INR} Invalid Interpretation Code [facility] Auto Coag PT Coag (PPP) [Time] 12.3 s Normal 9.4 - 1 2.5 second(s) [facility] Auto Coag CT Head or Brain w/o Contras ton 11-01-2022 CT Head or Brain w/o Contrast Normal [facility] CTA Headon 11-01-2022 CTA Head Normal [facility] CTA Neckon 11-01-2022 CTA Neck Normal [facility] Capillary Glucose POCon 10-06 Glucose [Mass/Vol] 109 mg/dL High 55-99 [facility] Comment on above: Performed By: #### 2 [id number] ####[facility] [address] [place] [address] Consent for Treatmenton 10-06 Consent for Treatment [id number] 0CD:127 Normal [facility] ED Clinical Summaryon 2022 ED Clinical Summary [facility]-Physicianon 11-02-19 ED Note-Physician Normal [facility] Comment on above: Result Comment: Elec tronically Signed By: Karie Newman PA-C\.br\Date and Time Signed: 11/01/22 15:29 EDT\.br\Electronically Co-Signed By: Nicolas Izquierdo DO\.br\Date and Time Co-Signed: 11/01/22 18:34 EDT ED Patient Education Noteon 11-01-2022 ED Patient Education Note Normal [facility] ED Patient Summaryon 023 ED Patient Summary Normal [facility] HEMATOLOGYOrdered By: SYSTEM SYSTEM on 11-01-2022 Basophils/100 [...] 7.7 E9/L Normal 4.0 - 11.0 E9/L [facility] HemeAutoSS MRI Brain w/o Contraston MRI Brain w/o Contrast Normal [facility] MRI Spine Cervical w/o Contr jack 11-01-2022 MRI Spine Cervical w/o Contrast Normal [facility] PT & PTTon 11-01-2022 aPTT Coag (PPP) [Time] 34.8 second(s) Normal 25.1-36.5 [facility] Comment on above: Result Comment: Para meter 15 days - 4 weeks 1 - 5 months 6 - 11 months 1 - 5 years 6 - 10 years 11 - 17 years PTT Mean: 35.4 (27.6-45.6) Mean: 33.5 (24.8-40.7) Mean: 32.4 (25.1-40.7) Mean: 31.6 (24.0-39.2) Mean: 31.6 (26.9-38.7) Mean: 31.0 (24.6-38.4) Pediatric Reference ranges were obtained from a study by lizandro Salinas al. prepared from 1437 samples obtained at 7 different centers using the same coagulation reagent and instrumentation as [facility]. Currently there are no coagulation studies available worldwide for children to 14 days, and no normal ranges. Heparin therapeutic range (represented by Anti-Factor Xa activity of 0.2 - 0.4 U/mL) corresponds to PTT of 56.6 - 109.0 sec. Performed By: #### 2 638493, 06605010, 02771530, 7577198, 6949967, 89032628 ####[facility] [address] [place] [address] INR Coag (PPP) [Relative time] 1.1 {INR} Invalid Interpretation Code [facility] Comment on above: Result Comment: INR results are specifically intended to assess patients stabilized on long-term Anticoagulation therapy suggested INR?s ?Less Intensive Anticoagulation? 2.0 ? 3.0Conventional Range 3.0 ? 4.5 Performed By: #### 2 027412, 04107926, 93333646, 9013603, 5565599, 86456514 ####[facility] [address] [place] [address] PT Coag (PPP) [Time] 12.3 second(s) Normal 9.4-12.5 [facility] Comment on above: Result Comment: 15 d [...] the same coagulation reagent and instrumentation as [facility]. Currently there are no coagulation studies available worldwide for children to 14 days, and no normal ranges. Performed By: #### 2 216973, 34998783, 39852089, 0638780, 3916701, 32672332 ####[facility] [address] [place] [address] RAD - MRI Screening Formon 0 11-01-2022 RAD - MRI Screening Form [id number]#[id number] 0CD:127 Normal [facility] SEROLOGYOrdered By: Brian kelly on 11-01-2022 HCG.beta subunit (U) [Moles/Vol] Negative Normal [facility] Man Sero Troponin 0 Hr.on 11-01-2022 Troponin I.cardiac [Mass/Vol] 2.50 pg/mL Low 10.10-27.10 [facility] Comment on above: Result Comment: The 95% CI (Confidence Interval) PPV (Positive Predictive Value) for myocardial infarction in females is 38 pg/mL, in males 51 pg/mL. The results should be used in conjunction with clinical conditions of myocardial infarction.(Access High Sensitivity Troponin I Instructions For Use, Naty Nino, October 2017) Performed By: #### 2 799480, 86734264, 82023400, 9489830, 5650473, 26737141 ####[facility] [address] [place] [address] U BetaHcg Qualon 11-01-2022 HCG.beta subunit (U) [Moles/Vol] Negative Normal [facility] Comment on above: Performed By: #### 2 8377951 ####[facility] [address] [place] [address] UA With Cult Reflexon 2022 Bacteria LM Ql (Urine sed) TRACE Normal Trace [facility] Comment on above: Performed By: #### 1 4693668 ####[address] [address] Bilirubin Ql (U) Negative Normal Negative [facility] Comment on above: Performed By: #### 1 8226317 ####[address] [address] Clarity (U) CLEAR Normal Clear [facility] Comment on above: Performed By: #### 1 3109817 ####[address] [address] Color (U) YELLOW Normal Yellow [facility] Comment on above: Performed By: #### 1 5618113 ####[address] [address] Epithelial cells.squamous LM.HPF (Urine sed) [#/Area] 0-2 Normal 0-2 [facility] Comment on above: Performed By: #### 1 0881427 ####[address] [address] Glucose Test strip (U) [Mass/Vol] Negative Normal Negative [facility] Comment on above: Performed By: #### 1 4367476 ####[address] [address] Hemoglobin Ql (U) TRACE Abnormal Negative [facility] Comment on above: Performed By: #### 1 1353663 ####[address] [address] Ketones (U) [Mass/Vol] Negative Normal Negative [facility] Comment on above: Performed By: #### 1 1730965 ####[address] [address] Ramos.plasma/Lithiu m.RBC (Bld) [Mass ratio] 0-3 Normal 0-3 [facility] Comment on above: Performed By: #### 1 5209642 ####[address] [address] Nitrite Ql (U) Negative Normal Negative [facility] Comment on above: Performed By: #### 1 2259175 ####[address] [address] pH (U) 6.0 [pH] Invalid Interpretation Code 5.0-9.0 [facility] Comment on above: Performed By: #### 1 3266660 ####[address] [address] Protein (U) [Mass/Vol] Negative Normal Negative [facility] Comment on above: Performed By: #### 1 3891256 ####[address] [address] Specific gravity (U) [Rel density] 1.010 Invalid Interpretation Code 1.005-1.030 [facility] Comment on above: Performed By: #### 1 4237471 ####[address] [address] Type of Urine collection method Random Urine Normal [facility] Comment on above: Performed By: #### 1 0698441 ####[address] [address] Urobilinogen Qn (U) 0.2 {Ladonna'U}/dL Normal 0.0-1.0 [facility] Comment on above: Performed By: #### 1 7798700 ####[address] [address] WBC Auto Ql (U) Negative Normal Negative [facility] Comment on above: Performed By: #### 1 3893275 ####[address] [address] WBC LM.HPF (Urine sed) [#/Area] 0-5 Normal 0-5 [facility] Comment on above: Performed By: #### 1 2621135 ####[facility] [address] [place] [address] URINALYSISOrdered By: Brian Dejesus on 11-01-2022 Bacteria [...] PM) Normal Negative [facility] UA Auto SS Ramos.plasma/Lithiu m.RBC (Bld) [Mass ratio] 0-3 /HPF Normal [...] Desc Random Urine (11/01/22 6:27 PM) Normal [facility] UA Auto SS Urobilinogen Qn (U) 0.8912415 {Ladonna'U}/dL Normal 0.0 - 1.0 EU/dL [facility] UA Auto SS WBC Auto Ql (U) Negative (11/01/22 6:27 PM) Normal Negative [facility] UA Auto SS WBC LM.HPF (Urine sed) [#/Area] 0-5 /HPF Normal 0-5/HPF [facility] UA Auto SS eGFRon 11-01-2022 GFR/1.73 sq M.predicted among non-blacks MDRD (S/P/Bld) [Vol rate/Area] 104 mL/min/1.73 m2 Normal >=59 [facility] Comment on above: Order Comment: Order added by Discern Expert. Result Comment: School Treasurer lina kidney disease could be indicated at eGFR's of less than 60 mL/min/1.73m2. Kidney failure is indicated at less than 15 mL/min/1.73m2. Performed By: #### 2 224071, 17910944, 94923918, 0499217, 8457438, 22717668 ####[facility] [address] [place] [address] CT Head or Brain w/o Contras ton 09-29-2022 CT Head or Brain w/o Contrast Normal [facility] Consent for Treatmenton 09-05 Consent for Treatment [id number] 0CD:127 Normal [facility] Discharge Instructionson Discharge Instructions [id number] CD:127 Normal [facility] ED Clinical Summaryon 2022 ED Clinical Summary Normal [facility] ED Note-Physicianon 09-30-19 23 ED Note-Physician Normal [facility] Comment on above: Result Comment: Elec tronically Signed By: Winnie Paula DO\Date and Time Signed: 09/29/22 01:41 EDT ED Patient Education Noteon 09-29-2022 ED Patient Education Note Normal [facility] ED Patient Summaryon 023 ED Patient Summary Normal [facility] RAD - Preliminary Cat Scan R eporton 09-29-2022 RAD - Preliminary Cat Scan Report [id number] 0CD:127 Normal [facility] Medicine Office/Clini c Noteon 07-02-2022 [facility] Medicine Office/Clinic Note Normal [facility] Comment on above: Result Comment: Elec tronically Signed By: KATELYN ROBERTS CNP\.br\Date and Time Signed: 07/02/22 12:45 EDT Patient Educationon 07-03-19 Patient Education Normal [facility] Coding Summary.on 06-23-2022 Coding Summary. Normal [facility] Medicine Office/Clini c Noteon 06-23-2022 [facility] Medicine Office/Clinic Note Normal [facility] Comment on above: Result Comment: Elec tronically Signed By: KATELYN ROBERTS CNP\.br\Date and Time Signed: 06/23/22 21:34 EDT\.br\Electronically Co-Signed By: Deandre Brizuela\.br\Date and Time Co-Signed: 06/22/22 16:44 EDT Patient Educationon 06-23-19 Patient Education Normal [facility] XR Hand 3+ Views Righton XR Hand 3+ Views Right [facility] Consent for Treatmenton 06-05 Consent for Treatment [id number] 0CD:127 Normal [facility] Medicine Office/Clini c Noteon 05-23-2022 [facility] Medicine Office/Clinic Note Normal [facility] [facility] Comment on above: Result Comment: Elec tronically Signed By: KATELYN ROBERTS CNP\.br\Date and Time Signed: 05/23/22 15:36 EDT Patient Educationon 05-24-19 Patient Education Normal [facility] Coding Summary.on 05-14-2022 Coding Summary. Normal [facility] Ambulatory Visit Summaryon 0 05-13-2022 Ambulatory Visit Summary Normal [facility] Medicine Office/Clini c Noteon 05-13-2022 Family Medicine Office/Clinic Note Normal [facility] Comment on above: Result Comment: Elec tronically Signed By: CODY Smith APRN, Sheila Morales\.br\Date and Time Signed: 05/13/22 11:29 EST Patient Educationon 05-14-19 Patient Education Normal [facility] Discharge Instructionson Discharge Instructions [id number]. 00CD:127 Normal [facility] ED Clinical Summaryon 2022 ED Clinical Summary Normal Gold velasquez [facility] ED Note-Physicianon 05-13-19 ED Note-Physician Normal [facility] Comment on above: Result Comment: Elec tronically Signed By: Quintin Murcia DO\.br\Date and Time Signed: 05/11/22 23:35 EST ED Patient Education Noteon 05-12-2022 ED Patient Education Note Normal [facility] ED Patient Summaryon 023 ED Patient Summary Normal [facility] Grp A Strp PCRon 05-12-2022 Group A Strep Negative Normal [facility] Comment on above: Order Comment: Order Added on by Discern Rule. Result Comment: Test ing performed using DNA amplification. Performed By: #### 2 [id number], [id number] ####[facility] [address] [place] [address] Grp A Strp Intrl Ctrl Pass Normal Fis her [facility] Comment on above: Order Comment: Order Added on by Discern Rule. Performed By: #### 2 [id number], [id number] ####[facility] [address] [place] [address] Rapid Strep w/rfxon 05-13-19 S. pyogenes Ag IA.rapid Ql (Throat) Negative Normal Negative [facility] Comment on above: Performed By: #### 2 [id number], [id number] ####[facility] [address] [place] [id number] XR Chest Single Viewon 05-12 XR Chest Single View Normal Jesse bassett [facility] Consent for Treatmenton Consent for Treatment [id number] [id number] 0CD:127 Normal [facility] MICRO OTHER TESTSOrdered By: Brian Dejesus on 05-11-2022 S. pyogenes Ag IA.rapid Ql (Throat) Negative (05/11/22 10:19 PM) Normal Negative [facility] Man Sero Coding Summary.on 04-29-2022 Coding Summary. Normal [facility] Auto Diffon 04-27-2022 Basophils/100 WBC (Bld) 0.9 % Normal 0.0-2.0 [facility] Comment on above: Order Comment: Order Added by Discern Expert. Performed By: #### 2 331796, 0037695, 1819383, 2874619, 09088084, 7942542 ####[facility] [address] [place] [address] Basophils/Leukocytes Auto (Bld) [Pure # fraction] 0.1 E9/L Normal 0.0-0.2 [facility] Comment on above: Order Comment: Order Added by Discern Expert. Performed By: #### 2 872143, 8716456, 1410965, 3329301, 63752723, 5805824 ####[facility] [address] [place] [address] Eosinophils/100 WBC (Bld) 2.7 % Normal 0.0-8.0 [facility] Comment on above: Order Comment: Order Added by Discern Expert. Performed By: #### 2 992427, 5151344, 7067230, 0306152, 61813762, 9476852 ####[facility] [address] [place] [address] Eosinophils/Leukocyte s Auto (Bld) [Pure # fraction] 0.2 E9/L Normal 0.0-0.5 [facility] Comment on above: Order Comment: Order Added by Discern Expert. Performed By: #### 2 760278, 3814064, 5682043, 8818883, 39005855, 5043352 ####[facility] [address] [place] [address] Lymphocytes/100 WBC (Bld) 30.4 % Normal 14.0-50.0 [facility] Comment on above: Order Comment: Order Added by Discern Expert. Performed By: #### 2 531327, 3549418, 8419082, 2429944, 76467264, 1841760 ####[facility] [address] [place] [address] Lymphocytes/Leukocyte s Auto (Bld) [Pure # fraction] 2.1 E9/L Normal 1.0-4.0 [facility] Comment on above: Order Comment: Order Added by Discern Expert. Performed By: #### 2 626982, 2067928, 8533130, 8764694, 86934295, 2306543 ####[place] [address] [place] [address] Monocytes/100 WBC (Bld) 7.2 % Normal 4.0-14.0 [facility] Comment on above: Order Comment: Order Added by Raúl Expert. Performed By: #### 2 663879, 8433740, 4975263, 6863085, 28907710, 6006798 ####[place] [place] [address] Monocytes/Leukocytes Auto (Bld) [Pure # fraction] 0.5 E9/L Normal 0.2-1.0 [facility] Comment on above: Order Comment: Order Added by Raúl Expert. Performed By: #### 2 223398, 1228684, 4441776, 7362390, 66050562, 6707808 ####[address] [place] [address] Neutrophils/100 WBC (Bld) 58.8 % Normal 36.0-75.0 [facility] Comment on above: Order Comment: Order Added by Discern Expert. Performed By: #### 2 566286, 1816324, 2613883, 2517030, 37411986, 3377012 ####[address] [place] [address] Neutrophils/Leukocyte s Auto (Bld) [Pure # fraction] 4.1 E9/L Normal 2.0-7.5 [facility] Comment on above: Order Comment: Order Added by Discern Expert. Performed By: #### 2 977240, 3937810, 4683679, 0749466, 52561802, 5318611 ####[facility] [address] [place] [address] BMPon 04-27-2022 Anion gap [Moles/Vol] 15 mmol/L Normal 6-16 [facility] Comment on above: Performed By: #### 2 928585, 1575825, 8098197, 4122015, 35700070, 6182071 ####[facility] [address] [facility], [place] [address] Calcium [Mass/Vol] 9.4 mg/dL Normal 8.9-11.1 [facility] Comment on above: Performed By: #### 2 469995, 7827098, 4449376, 4276391, 73946261, 8507097 ####[facility] [address] [place] [address] Chloride [Moles/Vol] 104 mmol/L Normal 101-111 [facility] Comment on above: Performed By: #### 2 846737, 3147185, 8354227, 6288383, 85211360, 1860480 ####[facility] [address] [facility], [place] [address] CO2 [Moles/Vol] 23 mmol/L Normal 21-31 [facility] Comment on above: Performed By: #### 2 227015, 5512045, 7826253, 3354251, 89396518, 1139502 ####[facility] [address] [facility], [place] [address] Creatinine [Mass/Vol] 0.8 mg/dL Normal 0.5-1.3 [facility] Comment on above: Performed By: #### 2 859488, 4739681, 9630442, 5851454, 02710309, 4977537 ####[facility] [address] [facility], [place] [address] Glucose [Mass/Vol] 89 mg/dL Normal 55-199 [facility] Comment on above: Result Comment: If t his glucose result represents a fasting glucose, interpretation should refer to the following reference range: 55-99 mg/dL Performed By: #### 2 044696, 8177911, 4899049, 1090475, 31746986, 6332776 ####[facility] [address] [place] [address] Potassium [Moles/Vol] 4.4 mmol/L Normal 3.5-5.3 [facility] Comment on above: Performed By: #### 2 299882, 4563042, 7098371, 6738874, 68989446, 0516716 ####[facility] [address] [place] [address] Sodium [Moles/Vol] 138 mmol/L Normal 135-145 [facility] Comment on above: Performed By: #### 2 341531, 9101664, 7812922, 7498572, 98301598, 1767057 ####[facility] [address] [place] [address] Urea nitrogen [Mass/Vol] 22 mg/dL High 5-21 [facility] Comment on above: Performed By: #### 2 572936, 7400429, 5380475, 3707041, 67207228, 8104276 ####[facility] [address] [place] [address] Urea nitrogen/Creatinine [Mass ratio] 28 No Units High 10-20 [facility] Comment on above: Performed By: #### 2 205087, 6545947, 7950748, 0273789, 58621002, 3759104 ####[facility] [address] [place] [address] CBC w/ Auto Diffon 3 Erythrocyte distribution width (RBC) [Ratio] 13.8 % Normal 10.9-14.2 [facility] Comment on above: Performed By: #### 2 220249, 2810309, 5295399, 6415371, 81382688, 2250698 ####[facility] [address] [place] [address] Hematocrit (Bld) [Volume fraction] 41.8 % Normal 34.0-46.0 [facility] Comment on above: Performed By: #### 2 283906, 7925928, 6641376, 6321153, 82064681, 3417452 ####[facility] [address] [place] [address] Hemoglobin (Bld) [Mass/Vol] 14.2 g/dL Normal 12.0-16.0 [facility] Comment on above: Performed By: #### 2 624119, 3364383, 0999513, 5826519, 86710297, 3902833 ####[place] [address] MCH (RBC) [Entitic mass] 29.4 pg Normal 27.0-34.0 [facility] Comment on above: Performed By: #### 2 513200, 9199023, 1752328, 0221295, 80985308, 6834822 ####[place] [address] MCHC (RBC) [Mass/Vol] 34.0 g/dL Normal 31.4-36.0 [facility] Comment on above: Performed By: #### 2 215617, 1124063, 6790693, 7706069, 13044864, 3112219 ####[place] [address] MCV (RBC) [Entitic vol] 86.5 fL Normal 80.0-100.0 [facility] Comment on above: Performed By: #### 2 397769, 7896126, 7616408, 1666951, 13393312, 3302569 ####[address] [place] [place] [address] Platelet mean volume (Bld) [Entitic vol] 9.0 fL Normal 6.4-10.8 [facility] Comment on above: Performed By: #### 2 470506, 2603433, 5061161, 9168944, 61481337, 6815233 ####[facility] [address] [place] [address] Platelets (Bld) [#/Vol] 226.0 E9/L Normal 150.0-500.0 [facility] Comment on above: Performed By: #### 2 472017, 5437144, 7950070, 5442699, 71999684, 6801824 ####[facility] [address] [place] [address] RBC (Bld) [#/Vol] 4.8 E12/L Normal 4.3-5.9 [facility] Comment on above: Performed By: #### 2 371156, 4025928, 9616987, 1924997, 04159178, 6866117 ####[facility] [address] [place] [address] WBC corrected for nucl RBC Auto (Bld) [#/Vol] 7.0 E9/L Normal 4.0-11.0 [facility] Comment on above: Performed By: #### 2 875813, 8396572, 4253568, 8437291, 00927677, 1857185 ####[facility] [address] [place] [address] CHEMISTRYOrdered By: SYSTEM SYSTEM on 04-27-2022 Anion gap [Moles/Vol] 15 mmol/L Normal 6 - 16 mEq/L [facility] Calcium [Mass/Vol] 9.4 mg/dL Normal 8.9 [...] 5 mg/dL Low 7 - 40 mg/dL [facility] CO2 [Moles/Vol] 23 mmol/L Normal 21 - 31 mmol/L [facility] Creatinine [Mass/Vol] 0.8 mg/dL Normal 0.5 - 1.3 mg/dL [facility] GFR/1.73 sq M.predicted among blacks MDRD (S/P/Bld) [Vol rate/Area] mL/min/1.73 m2 Normal >=59mL/min/1 .73 m2 [facility] S GFR/1.73 sq M.predicted among non-blacks MDRD (S/P/Bld) [Vol rate/Area] mL/min/1.73 m2 Normal >=59mL/min/1 .73 m2 [facility] Chem S Glucose [Mass/Vol] 89 mg/dL Normal 55 - 199 mg/dL [facility] Potassium [Moles/Vol] 4.4 mmol/L Normal 3.5 - 5.3 mmol/L [facility] Sodium [Moles/Vol] 138 mmol/L Normal 135 - 145 mmol/L [facility] Triglyceride [Mass/Vol] 27 mg/dL Normal <=149mg/dL [facility] TSH Qn 2.17 m[IU]/L Normal 0.34 - 5.60 mcIU/mL [facility] Urea nitrogen [Mass/Vol] 22 mg/dL High 5 - 21 mg/dL [facility] Urea nitrogen/Creatinine [Mass ratio] 28 mg/mg High 10 - 20 [facility] Consent for Treatmenton 04-08 Consent for Treatment [id number] [id number] 0CD:127 Normal [facility] HEMATOLOGYOrdered By: SYSTEM SYSTEM on 04-27-2022 Basophils/100 [...] 30.4 % Normal 14.0 - 50.0 % [facility] Lymphocytes/Leukocyte s Auto (Bld) [Pure # [...] 4.1 E9/L Normal 2.0 - 7.5 E9/L [facility] HEMATOLOGYOrdered By: Marielos Boston on 04-27-2022 Erythrocyte distribution width (RBC) [Ratio] 13.8 % Normal 10.9 - 14.2 % [facility] Hematocrit (Bld) [Volume fraction] 41.8 % Normal 34.0 - 46.0 % [facility] Hemoglobin (Bld) [Mass/Vol] 14.2 g/dL Normal 12.0 - 16.0 gm/dL [facility] MCH (RBC) [Entitic mass] 29.4 pg Normal 27.0 - 34.0 pg [facility] MCHC (RBC) [Mass/Vol] 34.0 g/dL Normal 31.4 - 36.0 gm/dL [facility] MCV (RBC) [Entitic vol] 86.5 fL Normal 80.0 - 100.0 fL [facility] Platelet mean volume (Bld) [Entitic vol] 9.0 fL Normal 6.4 - 10.8 fL [facility] Platelets (Bld) [#/Vol] 226.0 E9/L Normal 150.0 - 500.0 E9/L [facility] RBC (Bld) [#/Vol] 4.8 E12/L Normal 4.3 - 5.9 E12/L [facility] WBC corrected for nucl RBC Auto (Bld) [#/Vol] 7.0 E9/L Normal 4.0 - 11.0 E9/L [facility] Lipid Panelon 04-27-2022 Cholesterol [Mass/Vol] 193 mg/dL Normal 120-200 [facility] Comment on above: Performed By: #### 2 443481, 3200360, 9210311, 2091750, 99642203, 7740461 ####[facility] [address] [place] [address] Cholesterol in HDL [Mass/Vol] 58 mg/dL Invalid Interpretation Code [facility] Comment on above: Result Comment: HDL > or equal to 60 mg/dL: Low cardiovascular riskHDL < 40 mg/dL : High cardiovascular risk Performed By: #### 2 600054, 0669229, 2671853, 1497934, 15184630, 5518768 ####[facility] [address] [place] [address] Cholesterol in LDL [Mass/Vol] 128 mg/dL Normal <=129 [facility] Comment on above: Performed By: #### 2 812134, 5236642, 9866856, 7964917, 55124327, 4304207 ####[facility] [address] [place] [address] Cholesterol in VLDL [Mass/Vol] 5 mg/dL Low 7-40 [facility] Comment on above: Performed By: #### 2 145814, 5484926, 3566638, 2907391, 96540540, 9082121 ####[facility] [address] [place] [address] Triglyceride [Mass/Vol] 27 mg/dL Normal <=149 [facility] Comment on above: Performed By: #### 2 571144, 5172934, 6537629, 8643599, 28007258, 3229498 ####[facility] [address] [place] [address] TSHon 04-27-2022 TSH Qn 2.17 m[IU]/L Normal 0.34-5.60 [facility] Comment on above: Performed By: #### 2 496242, 0469391, 8131988, 4450095, 65663792, 0974711 ####[facility] [address] [place] [address] eGFRon 04-27-2022 GFR/1.73 sq M.predicted among blacks MDRD (S/P/Bld) [Vol rate/Area] mL/min/{1.73_m2} Normal >=59 [facility] Comment on above: Order Comment: Order added by Discern Expert. Result Comment: eGFR is race adjusted. AA=. Performed By: #### 2 062292, 0570786, 7260276, 5980408, 53670653, 9485317 ####[facility] [address] [place] [address] GFR/1.73 sq M.predicted among non-blacks MDRD (S/P/Bld) [Vol rate/Area] mL/min/{1.73_m2} Normal >=59 [facility] Comment on above: Order Comment: Order added by Discern Expert. Result Comment: School Treasurer lina kidney disease could be indicated at eGFR's of less than 60 mL/min/1.73m2. Kidney failure is indicated at less than 15 mL/min/1.73m2. Performed By: #### 2 809600, 8710392, 7227675, 7430082, 13927196, 5156040 ####[facility] [address] [place] [address] Ambulatory Visit Summaryon 0 04-20-2022 Ambulatory Visit Summary Normal [facility] US PELVIS AND TRANSVAGon US PELVIS AND [...] by: BONNIE MORGAN Date: 2022-04-14 18:23 Normal [facility] Pap IG, rfx Aptima HPV, rfx 16/18,45on 03-31-2022 . . Normal [facility] Comment on above: Result Comment: Perf ormed at: WB Performed By: #### P APHR2A #### [facility] [address] [place] [address] Dr. Dariel [place] DIAGNOSIS: Comment Normal [facility] Comment on above: Result Comment: NEGA TIVE FOR INTRAEPITHELIAL LESION OR MALIGNANCY. Performed at: WB Performed By: #### P APHR2A #### [facility] [address] [place] [address] [address] Dariel Silverman HPV Aptima Negative Normal Negative [facility] Comment on above: Result Comment: This nucleic acid amplification test detects fourteen high-risk HPV types (16,18,31,33,35,39,45,51,52,56,58,59,66,68) without differentiation. Performed at: =G Performed By: #### P APHR2A #### [facility] [address] [place] [address] Dr. Dariel Silverman HPV Genotype Reflex Comment Normal [facility] Comment on above: Result Comment: Crit eria not met, HPV Genotype not performed. Performed at: WB Performed By: #### P APHR2A #### [facility] [address] [place] [address] Dr. Dariel Silverman Methodology: Comment Normal [facility] Comment on above: Result Comment: This liquid based ThinPrep(R) pap test was screened with the use of an image guided system. Performed at: WB Performed By: #### P APHR2A #### [facility] [address] [place] [address] Dr. Dariel Silverman Note: Comment Normal [facility] Comment on above: Result Comment: The [...] WB Performed By: #### P APHR2A #### [facility] [address] [place], [place] [address] Dr. Dariel Silverman Performed by: Comment Normal [facility] Comment on above: Result Comment: Urszula Chapman, Supervisory Resource Paraprofessional (ASCP) Performed at: WB Performed By: #### P APHR2A #### [facility] [address] [place], [place] [address] Dr. Dariel Silverman Specimen adequacy: Comment Normal [facility] Comment on above: Result Comment: Sati sfactory for evaluation. Endocervical and/or squamous metaplastic cells (endocervical component) are present. Performed at: WB Performed By: #### P APHR2A #### [facility] [address] [place] [address] [address] Dariel Silverman MICRO OTHER TESTSOrdered By: Makeda Thomas on 03-04-2022 Rapid COV Int NEG Ctl Pass (03/04/22 10:47 PM) Normal [facility] Man Sero Rapid COV Int POS Ctl Pass (03/04/22 10:47 PM) Normal [facility] Man Sero RSV Ag IA.rapid Ql (Nph) Negative (03/04/22 10:47 PM) Normal Negative [facility] Man Sero SARS-CoV+SARS-CoV-2 (COVID-19) Ag IA.rapid Ql (Resp) Not Detected (03/04/22 10:47 PM) Normal Not Detected [facility] Man Sero US PELVIS AND TRANSVAGon US [...] EVELYN WHITEHEAD Date: 2022-01-21 06:36 Normal [facility] CHLAMYDIA/GONOCOCCUS ARMEN (SW AB/URINE/PAPon 01-17-2022 Chlamydia trachomatis, ARMEN Negative Normal Negative [facility] Comment on above: Performed By: #### U MICRO, UACSIND #### [facility] [address] [place] [address] [address] Dariel Silverman Neisseria gonorrhoeae, ARMEN Negative Normal Negative [facility] Comment on above: Performed By: #### U MICRO, UACSIND #### [facility] [address] [place] [address] Dr. Dariel Silverman VAGINITIS/VAGINOSIS DNA PROB Brandt 01-15-2022 Olya species Negative Normal Negative [facility] Comment on above: Performed By: #### V AGINT #### [facility] [address] [place] [address] Dr. Dariel Silverman Gardnerella vaginalis Negative Normal Negative [facility] Comment on above: Performed By: #### V AGINT #### [facility] [address] [place] [address] [address] Dariel Silverman Trichomonas vaginalis Negative Normal Negative [facility] Comment on above: Performed By: #### V AGINT #### [facility] [address] [place] [address] Dr. Dariel Silverman VAGINITIS/VAGINOSIS DNA PROB Brandt 10-24-2021 Olya species Negative Normal Negative [facility] Comment on above: Performed By: #### U MICRO, UACSIND #### [facility] [address] [place] [address] Dr. Dariel Silverman Gardnerella vaginalis Negative Normal Negative [facility] Comment on above: Performed By: #### U MICRO, UACSIND #### [facility] [address] [place] [address] Dr. Dariel Silverman Trichomonas vaginalis Negative Normal Negative [facility] Comment on above: Performed By: #### U MICRO, UACSIND #### [facility] [address] [place] [address] Dr. Dariel Silverman ANTIBODY ID PANELon 08-19-19 ANTIBODY ID PANEL Antibody ID Anti-D Blood Bank Notes likely due to rhogam given on 06/03/21 Normal [facility] Comment on above: Performed By: #### A BID #### [facility] [address] [place] [address] Dr. Dariel Silverman CBC AUTO DIFFon 08-15-2021 BASO # 0.1 103/ul Normal 0.0-0.1 [facility] Comment on above: Performed By: #### U MICRO, UACSIND #### [facility] [address] [place] [address] Dr. Dariel Silverman Basophils/100 WBC (Bld) 0.4 % Normal 0.2-2.0 [facility] Comment on above: Performed By: #### U MICRO, UACSIND #### [facility] [address] [place] [address] Dr. Dariel Silverman EO # 0.2 103/ul Normal 0.0-0.7 [facility] Comment on above: Performed By: #### U MICRO, UACSIND #### [facility] [address] [place] [address] Dr. Dariel Silverman Eosinophils/100 WBC (Bld) 1.7 % Normal 0.9-7.0 [facility] Comment on above: Performed By: #### U MICRO, UACSIND #### [facility] [address] [place] [address] Dr. Dariel Silverman Erythrocyte distribution width (RBC) [Ratio] 13.1 % Normal 11.0-15.0 [facility] Comment on above: Performed By: #### U MICRO, UACSIND #### [facility] [address] [place] [address] Dr. Dariel Silverman Hematocrit (Bld) [Volume fraction] 31.6 % Critically low 36.0-48.0 [facility] Comment on above: Performed By: #### U MICRO, UACSIND #### [facility] [address] [place] [address] Dr. Dariel Silverman Hemoglobin (Bld) [Mass/Vol] 9.9 g/dL Critically low 12.0-16.0 [facility] Comment on above: Performed By: #### U MICRO, UACSIND #### [facility] [address] [place] [address] [address] Dariel Silverman IG # 0.09 10e3/ul Critically high 0.00-0.03 [facility] Comment on above: Performed By: #### U MICRO, UACSIND #### [facility] [address] [place] [address] [address] Dariel Silverman IG % 0.7 % Critically high 0.0-0.5 [facility] Comment on above: Performed By: #### U MICRO, UACSIND #### [facility] [address] [place] [address] [address] Dariel Silverman LYMPH # 3.2 103/ul Normal 1.2-3.8 [facility] Comment on above: Performed By: #### U MICRO, UACSIND #### [facility] [address] [place] [address] [address] Dariel Silverman Lymphocytes/100 WBC (Bld) 25.1 % Normal 20.5-60.0 [facility] Comment on above: Performed By: #### U MICRO, UACSIND #### [facility] [address] [place] [address] [address] Dariel Silverman MANUAL DIFF REQ NO Normal [facility] Comment on above: Performed By: #### U MICRO, UACSIND #### [facility] [address] [place] [address] [address] Dariel Silverman MCH (RBC) [Entitic mass] 25.5 pg Critically low 26.7-34.0 [facility] Comment on above: Performed By: #### U MICRO, UACSIND #### [facility] [address] [address] [address] Dariel Silverman MCHC (RBC) [Mass/Vol] 31.3 g/dL Normal 29.9-35.2 [facility] Comment on above: Performed By: #### U MICRO, UACSIND #### [facility] [address] [address] [address] Dariel Silverman MCV (RBC) [Entitic vol] 81.4 fL Normal 81.0-99.0 [facility] Comment on above: Performed By: #### U MICRO, UACSIND #### [facility] [address] [address] [address] Dariel Silverman MONO # 1.0 103/ul Critically high 0.3-0.8 [facility] Comment on above: Performed By: #### U MICRO, UACSIND #### [facility] [address] [place] [address] Dr. Dariel Silverman Monocytes/100 WBC (Bld) 7.8 % Normal 1.7-12.0 [facility] Comment on above: Performed By: #### U MICRO, UACSIND #### [facility] [address] [place] [address] Dr. Dariel Silverman NEUT # 8.1 103/ul Critically high 1.4-6.5 [facility] Comment on above: Performed By: #### U MICRO, UACSIND #### [facility] [address] [place] [address] Dr. Dariel Silverman Neutrophils/100 WBC (Bld) 64.3 % Normal 43.0-75.0 [facility] Comment on above: Performed By: #### U MICRO, UACSIND #### [facility] [address] [place] [address] Dr. Dariel Silverman Platelet mean volume (Bld) [Entitic vol] 10.3 fL Normal 9.5-13.5 [facility] Comment on above: Performed By: #### U MICRO, UACSIND #### [facility] [address] [place] [address] Dr. Dariel Silverman PLT 220 103/ul Normal 150-450 [facility] Comment on above: Performed By: #### U MICRO, UACSIND #### [facility] [address] [place] [address] Dr. Dariel Silverman RBC 3.88 106/ul Critically low 4.20-5.40 [facility] Comment on above: Performed By: #### U MICRO, UACSIND #### [facility] [address] [place] [address] Dr. Dariel Silverman WBC 12.6 103/ul Critically high 4.0-11.0 [facility] Comment on above: Performed By: #### U MICRO, UACSIND #### [facility] [address] [place] [address] Dr. Dariel Silverman CBC AUTO DIFFon 08-14-2021 BASO # 0.0 103/ul Normal 0.0-0.1 [facility] Comment on above: Performed By: #### U MICRO, UACSIND #### [facility] [address] [place] [address] Dr. Dariel Silverman Basophils/100 WBC (Bld) 0.3 % Normal 0.2-2.0 [facility] Comment on above: Performed By: #### U MICRO, UACSIND #### [facility] [address] [place] [address] Dr. Dariel Silverman EO # 0.1 103/ul Normal 0.0-0.7 [facility] Comment on above: Performed By: #### U MICRO, UACSIND #### [facility] [address] [place] [address] Dr. Dariel Silverman Eosinophils/100 WBC (Bld) 0.9 % Normal 0.9-7.0 [facility] Comment on above: Performed By: #### U MICRO, UACSIND #### [facility] [address] [place] [address] Dr. Dariel Silverman Erythrocyte distribution width (RBC) [Ratio] 13.0 % Normal 11.0-15.0 [facility] Comment on above: Performed By: #### U MICRO, UACSIND #### [facility] [address] [place] [address] Dr. Dariel Silverman Hematocrit (Bld) [Volume fraction] 30.9 % Critically low 36.0-48.0 [facility] Comment on above: Performed By: #### U MICRO, UACSIND #### [facility] [address] [address] [address] Dariel Silverman Hemoglobin (Bld) [Mass/Vol] 10.3 g/dL Critically low 12.0-16.0 [facility] Comment on above: Performed By: #### U MICRO, UACSIND #### [facility] [address] [address] [address] Dariel Silverman IG # 0.06 10e3/ul Critically high 0.00-0.03 [facility] Comment on above: Performed By: #### U MICRO, UACSIND #### [facility] [address] [address] [address] Dariel Silverman IG % 0.6 % Critically high 0.0-0.5 [facility] Comment on above: Performed By: #### U MICRO, UACSIND #### [facility] [address] [place] [address] Dr. Dariel Silverman LYMPH # 2.4 103/ul Normal 1.2-3.8 [facility] Comment on above: Performed By: #### U MICRO, UACSIND #### [facility] [address] [address] [address] Dariel Silverman Lymphocytes/100 WBC (Bld) 22.7 % Normal 20.5-60.0 [facility] Comment on above: Performed By: #### U MICRO, UACSIND #### [facility] [address] [address] [address] Dariel Silverman MANUAL DIFF REQ NO Normal [facility] Comment on above: Performed By: #### U MICRO, UACSIND #### [facility] [address] [address] [address] Dariel Silverman MCH (RBC) [Entitic mass] 26.0 pg Critically low 26.7-34.0 [facility] Comment on above: Performed By: #### U MICRO, UACSIND #### [facility] [address] [address] [address] Dariel Silverman MCHC (RBC) [Mass/Vol] 33.3 g/dL Normal 29.9-35.2 [facility] Comment on above: Performed By: #### U MICRO, UACSIND #### [facility] [address] [address] [address] Dariel Silverman MCV (RBC) [Entitic vol] 78.0 fL Critically low 81.0-99.0 [facility] Comment on above: Performed By: #### U MICRO, UACSIND #### [facility] [address] [place] [address] Dr. Dariel Silverman MONO # 0.8 103/ul Normal 0.3-0.8 [facility] Comment on above: Performed By: #### U MICRO, UACSIND #### [facility] [address] [place] [address] Dr. Dariel Silverman Monocytes/100 WBC (Bld) 7.9 % Normal 1.7-12.0 [facility] Comment on above: Performed By: #### U MICRO, UACSIND #### [facility] [address] [place] [address] Dr. Dariel Silverman NEUT # 7.2 103/ul Critically high 1.4-6.5 [facility] Comment on above: Performed By: #### U MICRO, UACSIND #### [facility] [address] [place] [address] Dr. Dariel Silverman Neutrophils/100 WBC (Bld) 67.6 % Normal 43.0-75.0 [facility] Comment on above: Performed By: #### U MICRO, UACSIND #### [facility] [address] [place] [address] Dr. Dariel Silverman Platelet mean volume (Bld) [Entitic vol] 10.5 fL Normal 9.5-13.5 [facility] Comment on above: Performed By: #### U MICRO, UACSIND #### [facility] [address] [place] [address] Dr. Dariel Silverman PLT 261 103/ul Normal 150-450 [facility] Comment on above: Performed By: #### U MICRO, UACSIND #### [facility] [address] [place] [address] Dr. Dariel Silverman RBC 3.96 106/ul Critically low 4.20-5.40 [facility] Comment on above: Performed By: #### U MICRO, UACSIND #### [facility] [address] [address] [address] Dariel Silverman WBC 10.6 103/ul Normal 4.0-11.0 [facility] Comment on above: Performed By: #### U MICRO, UACSIND #### [facility] [address] [address] [address] Dariel Silverman Covid-19 PCR ([facility])on 08-05 SARS-CoV-2 (COVID-19) RNA ARMEN+probe Ql (Unsp spec) Not detected Normal NOT DETECTED [facility] Comment on above: Result Comment: When [...] for this test is supported by the [place] of [employer] and Human Service's declaration that [...] Performed By: #### U MICRO, UACSIND #### [facility] [address] [address] [address] Dariel Silverman DIRECT COOMBSon 08-14-2021 DIRECT [place] Direct [place] Negati ve Blood Bank Notes test performed by sherlyn Bergman [facility] Comment on above: Performed By: #### D IRCMB #### [facility] [address] [address] [address] Dariel Silverman DRUG SCREEN RAPID (URINE)on 08-14-2021 AMP Negative Normal NEGATIVE [facility] Comment on above: Performed By: #### U MICRO, UACSIND #### [facility] [address] [address] [address] Dariel Silverman BAR Negative Normal NEGATIVE [facility] Comment on above: Performed By: #### U MICRO, UACSIND #### [facility] [address] [address] [address] Dariel Silverman BUP Negative Normal NEGATIVE [facility] Comment on above: Performed By: #### U MICRO, UACSIND #### [facility] [address] [address] [address] Dariel Silverman BZO Negative Normal NEGATIVE [facility] Comment on above: Performed By: #### U MICRO, UACSIND #### [facility] [address] [place] [address] Dr. Dariel Silverman FLORA Negative Normal NEGATIVE [facility] Comment on above: Performed By: #### U MICRO, UACSIND #### [facility] [address] [place] [address] Dr. Dariel Silverman CUT-OFFS SEE BELOW Normal [facility] Comment on above: Result Comment: AMP [...] Performed By: #### U MICRO, UACSIND #### [facility] [address] [place] [address] Dr. Dariel Silverman DRUG CUT HEADER DRUG CLASS TEST SYST EM CUT-OFF CONCENTRATIONS ARE FOLLOWS: Normal [facility] Comment on above: Performed By: #### U MICRO, UACSIND #### [facility] [address] [address] [address] Dariel Silverman mAMP Negative Normal NEGATIVE [facility] Comment on above: Performed By: #### U MICRO, UACSIND #### [facility] [address] [address] [address] Dariel Silverman MTD Negative Normal NEGATIVE [facility] Comment on above: Performed By: #### U MICRO, UACSIND #### [facility] [address] [address] [address] Dariel Silverman OPI Negative Normal NEGATIVE [facility] Comment on above: Performed By: #### U MICRO, UACSIND #### [facility] [address] [address] [address] Dariel Silverman OXY Negative Normal NEGATIVE [facility] Comment on above: Performed By: #### U MICRO, UACSIND #### [facility] [address] [address] [address] Dariel Silverman PCP Negative Normal NEGATIVE [facility] Comment on above: Performed By: #### U MICRO, UACSIND #### [facility] [address] [address] [address] Dariel Silverman PPX Negative Normal NEGATIVE [facility] Comment on above: Performed By: #### U MICRO, UACSIND #### [facility] [address] [address] [address] Dariel Silverman TCA Negative Normal NEGATIVE [facility] Comment on above: Performed By: #### U MICRO, UACSIND #### [facility] [address] [address] [address] Dariel Silverman THC Negative Normal NEGATIVE [facility] Comment on above: Performed By: #### U MICRO, UACSIND #### [facility] [address] [address] [address] Dariel Silverman TYPE AND SCREENon 08-14-2021 TYPE AND SCREEN Negative Normal [facility] Comment on above: Performed By: #### U MICRO, UACSIND #### [facility] [address] [address] [address] Dariel Silverman CULTURE URINEon 08-09-2021 CULTURE URINE Culture Observations : LIGHT GROWTH OF MIXED GENITAL SURJIT. NO POTENTIAL PATHOGENS SEEN. Normal [facility] Comment on above: Performed By: #### U RCX #### [facility] [address] [place] [address] Dr. Dariel Silverman UA (CLEAN/CATCH) ANGLESMITH/MICRO I F IND.on 08-09-2021 Bilirubin Ql (U) Negative Normal NEGATIVE [facility] Comment on above: Performed By: #### U MICRO, UACSIND #### [facility] [address] [place] [address] Dr. Dariel Silverman Clarity (U) CLEAR Normal CLEAR [facility] Comment on above: Performed By: #### U MICRO, UACSIND #### [facility] [address] [place] [address] Dr. Dariel Silverman Color (U) LT. YELLOW Normal YELLOW [facility] Comment on above: Performed By: #### U MICRO, UACSIND #### [facility] [address] [place] [address] Dr. Dariel Silverman Glucose Ql (U) Negative Normal NEGATIVE [facility] Comment on above: Performed By: #### U MICRO, UACSIND #### [facility] [address] [place] [address] Dr. Dariel Silverman Hemoglobin Ql (U) Negative Normal NEGATIVE [facility] Comment on above: Performed By: #### U MICRO, UACSIND #### [facility] [address] [place] [address] Dr. Dariel Silverman Ketones Ql (U) Negative Normal NEGATIVE [facility] Comment on above: Performed By: #### U MICRO, UACSIND #### [facility] [address] [address] [address] Dariel Silverman LEUKOCYTES SMALL Abnormal NEGATIVE [facility] Comment on above: Performed By: #### U MICRO, UACSIND #### [facility] [address] [place] [address] Dr. Dariel Silverman Nitrite Ql (U) Negative Normal NEGATIVE [facility] Comment on above: Performed By: #### U MICRO, UACSIND #### [facility] [address] [place] [address] Dr. Dariel Silverman pH (U) 8.5 [pH] Normal 5-9 [facility] Comment on above: Performed By: #### U MICRO, UACSIND #### [facility] [address] [place] [address] Dr. Dariel Silverman SPEC GRAVITY 1.015 Normal 1.005-<=1.02 5 [facility] Comment on above: Performed By: #### U MICRO, UACSIND #### [facility] [address] [place] [address] Dr. Dariel Silverman UA PROTEIN Negative Normal NEGATIVE/ TRACE [facility] Comment on above: Performed By: #### U MICRO, UACSIND #### [facility] [address] [place] [address] Dr. Dariel Silverman UR MICRO IND INDICATED Normal [facility] Comment on above: Performed By: #### U MICRO, UACSIND #### [facility] [address] [place] [address] Dr. Dariel Silverman Urobilinogen Qn (U) 0.2 {Ladonna'U}/dL Normal 0.2 - 1. 0 [facility] Comment on above: Performed By: #### U MICRO, UACSIND #### [facility] [address] [place] [address] Dr. Dariel Silverman URINE MICROSCOPIC ONLYon BACTERIA TRACE Abnormal NONE SEEN [facility] Comment on above: Performed By: #### U MICRO, UACSIND #### [facility] [address] [place] [address] Dr. Dariel Silverman Bacteria identified Cx Nom (U) INDICATED Normal [facility] Comment on above: Performed By: #### U MICRO, UACSIND #### [facility] [address] [place] [address] Dr. Dariel Silverman CAST NONE SEEN Normal NONE SEEN [facility] Comment on above: Performed By: #### U MICRO, UACSIND #### [facility] [address] [place] [address] Dr. Dariel Silverman Crystals LM Nom (Urine sed) NONE SEEN Normal NONE SEEN [facility] Comment on above: Performed By: #### U MICRO, UACSIND #### [facility] [address] [address] [address] Dariel Silverman Epithelial cells LM Ql (Urine sed) MODERATE Abnormal NONE SEEN /RARE [facility] Comment on above: Performed By: #### U MICRO, UACSIND #### [facility] [address] [address] [address] Dariel Silverman MUCOUS NONE SEEN Normal NONE SEEN [facility] Comment on above: Performed By: #### U MICRO, UACSIND #### [facility] [address] [place] [address] Dr. Dariel Silverman RBC 0-2 Normal 0-2 [facility] Comment on above: Performed By: #### U MICRO, UACSIND #### [facility] [address] [place] [address] Dr. Dariel Silverman WBC 2-5 Abnormal NONE SEEN [facility] Comment on above: Performed By: #### U MICRO, UACSIND #### [facility] [address] [place] [address] Dr. Dariel Silverman GROUP B STREP CULTUREon 07-06 S. agalactiae Ag Ql (Unsp spec) Culture Observations: Group B Strep called to Treva Garber-SHE/office 07/27/21 @54 -[facility] Isolate 1 Streptococcus agalactiae Light growth of ORGANISM 1 Streptococcus agalactiae ANTIBIOTIC M.I.C RX STATUS Benzylpenicillin <=0.06 S F Ampicillin <=0.25 S F Cefotaxime <=0.12 S F Ceftriaxone <=0.12 S F Levofloxacin 0.5 S F Erythromycin >=8 R F Clindamycin >=1 R F Linezolid <=2 S F Vancomycin 0.5 S F Tetracycline >=16 R F Normal [facility] Comment on above: Performed By: #### G BSCX #### [facility] [address] [place] [address] Dr. Dariel Silverman US PREG CERVICAL LENGTHon [...] BONNIE MORGAN Date: 2021-06-29 07:06 Normal [facility] CULTURE URINEon 06-28-2021 CULTURE URINE Culture Observations : NO GROWTH. Normal [facility] Comment on above: Performed By: #### U RCX #### [facility] [address] [place] [address] Dr. Dariel Silverman UA (CLEAN/CATCH) ANGLESMITH/MICRO I F IND.on 06-28-2021 Bilirubin Ql (U) Negative Normal NEGATIVE [facility] Comment on above: Performed By: #### U MICRO, UACSIND #### [facility] [address] [place] [address] Dr. Dariel Silverman Clarity (U) CLEAR Normal CLEAR [facility] Comment on above: Performed By: #### U MICRO, UACSIND #### [facility] [address] [place] [address] Dr. Dariel Silverman Color (U) LT. YELLOW Normal YELLOW [facility] Comment on above: Performed By: #### U MICRO, UACSIND #### [facility] [address] [place] [address] Dr. Dariel Silverman Glucose Ql (U) Negative Normal NEGATIVE [facility] Comment on above: Performed By: #### U MICRO, UACSIND #### [facility] [address] [place] [address] Dr. Dariel Silverman Hemoglobin Ql (U) Negative Normal NEGATIVE [facility] Comment on above: Performed By: #### U MICRO, UACSIND #### [facility] [address] [place] [address] Dr. Dariel Silverman Ketones Ql (U) Negative Normal NEGATIVE [facility] Comment on above: Performed By: #### U MICRO, UACSIND #### [facility] [address] [place] [address] Dr. Dariel Silverman LEUKOCYTES TRACE Abnormal NEGATIVE [facility] Comment on above: Performed By: #### U MICRO, UACSIND #### [facility] [address] [place] [address] Dr. Dariel Silverman Nitrite Ql (U) Negative Normal NEGATIVE [facility] Comment on above: Performed By: #### U MICRO, UACSIND #### [facility] [address] [place] [address] Dr. Dariel Silverman pH (U) 6.0 [pH] Normal 5-9 [facility] Comment on above: Performed By: #### U MICRO, UACSIND #### [facility] [address] [place] [address] Dr. Dariel Silverman SPEC GRAVITY 1.010 Normal 1.005-<=1.02 5 [facility] Comment on above: Performed By: #### U MICRO, UACSIND #### [facility] [address] [place] [address] Dr. Dariel Silverman UA PROTEIN Negative Normal NEGATIVE/ TRACE [facility] Comment on above: Performed By: #### U MICRO, UACSIND #### [facility] [address] [place] [address] Dr. Dariel Silverman UR MICRO IND INDICATED Normal [facility] Comment on above: Performed By: #### U MICRO, UACSIND #### [facility] [address] [place] [address] Dr. Dariel Silverman Urobilinogen Qn (U) 0.2 {Ladonna'U}/dL Normal 0.2 - 1. 0 [facility] Comment on above: Performed By: #### U MICRO, UACSIND #### [facility] [address] [place] [address] Dr. Dariel Silverman URINE MICROSCOPIC ONLYon BACTERIA NONE SEEN Normal NONE SEEN [facility] Comment on above: Performed By: #### U MICRO, UACSIND #### [facility] [address] [place] [address] Dr. Dariel Silverman Bacteria identified Cx Nom (U) INDICATED Normal [facility] Comment on above: Performed By: #### U MICRO, UACSIND #### [facility] [address] [place] [address] Dr. Dariel Silverman CAST NONE SEEN Normal NONE SEEN [facility] Comment on above: Performed By: #### U MICRO, UACSIND #### [facility] [address] [place] [address] Dr. Dariel Silverman Crystals LM Nom (Urine sed) NONE SEEN Normal NONE SEEN [facility] Comment on above: Performed By: #### U MICRO, UACSIND #### [facility] [address] [place] [address] Dr. Dariel Silverman Epithelial cells LM Ql (Urine sed) FEW Abnormal NONE SEEN /RARE [facility] Comment on above: Performed By: #### U MICRO, UACSIND #### [facility] [address] [place] [address] Dr. Dariel Silverman MUCOUS NONE SEEN Normal NONE SEEN [facility] Comment on above: Performed By: #### U MICRO, UACSIND #### [facility] [address] [place] [address] Dr. Dariel Silverman RBC NONE SEEN Abnormal 0-2 [facility] Comment on above: Performed By: #### U MICRO, UACSIND #### [facility] [address] [place] [address] Dr. Dariel Silverman WBC 2-5 Abnormal NONE SEEN [facility] Comment on above: Performed By: #### U MICRO, UACSIND #### [facility] [address] [place] [address] Dr. Dariel Silverman RHOGAMon 06-03-2021 RHOGAM Status Information Issued Quantity 1 Product ID Rh Immune Globulin Lot Number [id number] Issue Date/Time [id number] Normal [facility] Comment on above: Performed By: #### R HOG #### [facility] [address] [place] [address] Dr. Dariel Silverman TYPE AND SCREENon 06-02-2021 TYPE AND SCREEN Negative Normal [facility] Comment on above: Performed By: #### U MICRO, UACSIND #### [facility] [address] [address] [address] Dariel Silverman CULTURE URINEon 05-28-2021 CULTURE URINE Culture Observations : LIGHT GROWTH OF MIXED GENITAL SURJIT. NO POTENTIAL PATHOGENS SEEN. Normal [facility] [facility] Comment on above: Performed By: #### U MICRO, UACSIND #### [facility] [address] [address] [address] Dariel Silverman UA (CLEAN/CATCH) ANGLESMITH/MICRO I F IND.on 05-28-2021 Bilirubin Ql (U) Negative Normal NEGATIVE The [facility] Comment on above: Performed By: #### U MICRO, UACSIND #### [facility] [address] [place] [address] Dr. Dariel Silverman Clarity (U) SL CLOUDY Abnormal CLEAR [facility] Comment on above: Performed By: #### U MICRO, UACSIND #### [facility] [address] [place] [address] Dr. Dariel Silverman Color (U) YELLOW Normal YELLOW The [facility] Comment on above: Performed By: #### U MICRO, UACSIND #### [facility] [address] [place] [address] Dr. Dariel Silverman Glucose Ql (U) Negative Normal NEGATIVE The [facility] Comment on above: Performed By: #### U MICRO, UACSIND #### [facility] [address] [place] [address] Dr. Dariel Silverman Hemoglobin Ql (U) Negative Normal NEGATIVE [facility] Comment on above: Performed By: #### U MICRO, UACSIND #### [facility] [address] [place] [address] Dr. Dariel Silverman Ketones Ql (U) TRACE Abnormal NEGATIVE The [facility] Comment on above: Performed By: #### U MICRO, UACSIND #### [facility] [address] [place] [address] Dr. Dariel Silverman LEUKOCYTES TRACE Abnormal NEGATIVE [facility] Comment on above: Performed By: #### U MICRO, UACSIND #### [facility] [address] [address] [address] Dariel Silverman Nitrite Ql (U) Negative Normal NEGATIVE The [facility] Comment on above: Performed By: #### U MICRO, UACSIND #### [facility] [address] [place] [address] Dr. Dariel Silverman pH (U) 6.5 [pH] Normal 5-9 [facility] Comment on above: Performed By: #### U MICRO, UACSIND #### [facility] [address] [place] [address] Dr. Dariel Silverman SPEC GRAVITY 1.020 Normal 1.005-<=1.02 5 [facility] Comment on above: Performed By: #### U MICRO, UACSIND #### [facility] [address] [place] [address] Dr. Dariel Silverman UA PROTEIN Negative Normal NEGATIVE/ TRACE The [facility] Comment on above: Performed By: #### U MICRO, UACSIND #### [facility] [address] [place] [address] Dr. Dariel Silverman UR MICRO IND INDICATED Normal [facility] Comment on above: Performed By: #### U MICRO, UACSIND #### [facility] [address] [place] [address] Dr. Dariel Silverman Urobilinogen Qn (U) 1.0 {Ladonna'U}/dL Normal 0.2 - 1. 0 [facility] Comment on above: Performed By: #### U MICRO, UACSIND #### [facility] [address] [place] [address] Dr. Dariel Silverman URINE MICROSCOPIC ONLYon BACTERIA SMALL Abnormal NONE SEEN The [facility] Comment on above: Performed By: #### U MICRO, UACSIND #### [facility] [address] [place] [address] Dr. Dariel Silverman Bacteria identified Cx Nom (U) INDICATED Normal [facility] Comment on above: Performed By: #### U MICRO, UACSIND #### [facility] [address] [place] [address] Dr. Dariel Silverman CAST NONE SEEN Normal NONE SEEN The [facility] Comment on above: Performed By: #### U MICRO, UACSIND #### [facility] [address] [address] [address] Dariel Silverman Crystals LM Nom (Urine sed) NONE SEEN Normal NONE SEEN [facility] Comment on above: Performed By: #### U MICRO, UACSIND #### [facility] [address] [address] [address] Dariel Silverman Epithelial cells LM Ql (Urine sed) FEW Abnormal NONE SEEN /RARE The [facility] Comment on above: Performed By: #### U MICRO, UACSIND #### [facility] [address] [address] [address] Dariel Silverman MUCOUS MODERATE Abnormal NONE SEEN The [facility] Comment on above: Performed By: #### U MICRO, UACSIND #### [facility] [address] [place] [address] Dr. Darile Silverman RBC 0-2 Normal 0-2 [facility] Comment on above: Performed By: #### U MICRO, UACSIND #### [facility] [address] [address] [address] Dariel Silverman WBC 0-2 Abnormal NONE SEEN [facility] Comment on above: Performed By: #### U MICRO, UACSIND #### [facility] [address] [address] [address] Dariel Silverman GLUCOSE - 1HRon 05-27-2021 Glucose [Mass/Vol] 92 mg/dL Normal 74-106 The [facility] Comment on above: Performed By: #### U MICRO, UACSIND #### [facility] [address] [address] [address] Dariel Silverman HEMOGRAM AND PLATELon 2021 Hematocrit (Bld) [Volume fraction] 33.1 % Critically low 36.0-48.0 [facility] Comment on above: Performed By: #### U MICRO, UACSIND #### [facility] [address] [place] [address] Dr. Dariel Silverman Hemoglobin (Bld) [Mass/Vol] 10.8 g/dL Critically low 12.0-16.0 [facility] Comment on above: Performed By: #### U MICRO, UACSIND #### [facility] [address] [address] [address] Dariel Silverman MCH (RBC) [Entitic mass] 29.1 pg Normal 26.7-34.0 [facility] Comment on above: Performed By: #### U MICRO, UACSIND #### [facility] [address] [place] [address] Dr. Dariel Silverman MCHC (RBC) [Mass/Vol] 32.6 g/dL Normal 29.9-35.2 [facility] Comment on above: Performed By: #### U MICRO, UACSIND #### [facility] [address] [place] [address] Dr. Dariel Silverman MCV (RBC) [Entitic vol] 89.2 fL Normal 81.0-99.0 [facility] Comment on above: Performed By: #### U MICRO, UACSIND #### [facility] [address] [place] [address] Dr. Dariel Silverman PLT 252 103/ul Normal 150-450 [facility] Comment on above: Performed By: #### U MICRO, UACSIND #### [facility] [address] [place] [address] Dr. Dariel Silverman RBC 3.71 106/ul Critically low 4.20-5.40 [facility] Comment on above: Performed By: #### U MICRO, UACSIND #### [facility] [address] [place] [address] Dr. Dariel Silverman WBC 11.8 103/ul Critically high 4.0-11.0 [facility] Comment on above: Performed By: #### U MICRO, UACSIND #### [facility] [address] [place] [address] Dr. Dariel Silverman PAP ACOG PANEL 2: 21 to 29on 04-27-2021 . . Normal [facility] Comment on above: Performed By: #### U MICRO, UACSIND #### [facility] [address] [place] [address] Dr. Dariel Silverman Age Gdln ACOG Testing 21-29 Normal [facility] Comment on above: Performed By: #### U MICRO, UACSIND #### [facility] [address] [place] [address] Dr. Dariel Silverman DIAGNOSIS: Comment Abnormal [facility] Comment on above: Result Comment: EPIT HELIAL CELL ABNORMALITY. ATYPICAL SQUAMOUS CELLS OF UNDETERMINED SIGNIFICANCE (ASC-US). Performed By: #### U MICRO, UACSIND #### [facility] [address] [address] [address] Dariel Silverman Electronically signed by: Comment Normal [facility] Comment on above: Result Comment: Fabi Lira MD, Pathologist Performed By: #### U MICRO, UACSIND #### [facility] [address] [place] [address] Dr. Dariel Silverman HPV Aptima Positive Abnormal Negative [facility] Comment on above: Result Comment: This nucleic acid amplification test detects fourteen high-risk HPV types (16,18,31,33,35,39,45,51,52,56,58,59,66,68) without differentiation. Performed By: #### U MICRO, UACSIND #### [facility] [address] [place] [address] Dr. Dariel Silverman Methodology: Comment Normal [facility] Comment on above: Result Comment: This liquid based ThinPrep(R) pap test was screened with the use of an image guided system. Performed By: #### U MICRO, UACSIND #### [facility] [address] [place] [address] Dr. Dariel Silverman Note: Comment Normal [facility] Comment on above: Result Comment: The Pap smear is a screening test designed to aid in the detection of premalignant and malignant conditions of the uterine cervix. It is not a diagnostic procedure and should not be used as the sole means of detecting cervical cancer. Both false-positive and false-negative reports do occur. . Performed By: #### U MICRO, UACSIND #### [facility] [address] [address] [address] Dariel Silverman Pathologist Provided ICD10 Comment Normal [facility] Comment on above: Result Comment: [id number]. [id number] Performed By: #### U MICRO, UACSIND #### [facility] [address] [address] [address] Dariel Silverman Performed by: Comment Normal [facility] Comment on above: Result Comment: Renu Gray, Resource Paraprofessional (ASCP) Performed By: #### U MICRO, UACSIND #### [facility] [address] [address] [address] Dariel Silverman Recommendation: Comment Abnormal [facility] Comment on above: Result Comment: Sugg est follow up as clinically appropriate. Performed By: #### U MICRO, UACSIND #### [facility] [address] [address] [address] Dariel Silverman Reflex Criteria: Comment Normal [facility] Comment on above: Result Comment: See below for HPV testing results. . Performed By: #### U MICRO, UACSIND #### [facility] [address] [address] [address] Dariel Silverman Specimen adequacy: Comment Normal [facility] Comment on above: Result Comment: Sati sfactory for evaluation. Endocervical and/or squamous metaplastic cells (endocervical component) are present. Performed By: #### U MICRO, UACSIND #### [facility] [address] [address] [address] Dariel Silverman US PREG ANATOMY SINGLEon [...] by ultrasound, 19% by expected EDC; FL/AC: [id number] FL/BPD: 0.151264 HC/AC: [id number] GESTATIONAL AGE: Age by EDC: 22 weeks 5 days TRACIE by EDC: 08/20/2021 Age by current US: 21 weeks 4 days TRACIE by current US: 08/28/2021 IMPRESSION: Normal anatomy scan *Reference: [employer] Practice Guideline for the performance of Obstetric Ultrasound Examinations, December 05, 2006. Electronically authenticated by: BONNIE MORGAN Date: 2021-04-21 16:22 Normal [facility] Vital Signs Date Time Vital Sign Value Performing Clinician Facility 04-06-2023 12:56-0500 Diastolic blood pressure 68 mm[Hg] Huang FLORES [facility] 04-06-2023 12:56-0500 Heart rate 92 /min Huang FLORES [facility] 04-06-2023 12:56-0500 SaO2% (BldA) [Mass fraction] 98 % Huang FLORES [facility] 04-06-2023 12:56-0500 Systolic blood pressure 118 mm[Hg] Huang FLORES [facility] 03-30-2023 11:39-0500 Diastolic blood pressure 70 mm[Hg] MD Urvashi Medina Work Phone: [facility] 03-30-2023 11:39-0500 Heart rate 83 /min MD Urvashi Mdeina Work Phone: [facility] 03-30-2023 11:39-0500 Systolic blood pressure 102 mm[Hg] MD Urvashi Medina Work Phone: [facility] 03-30-2023 11:20-0500 SaO2% (BldA) [Mass fraction] 100 % MD Urvashi Medina Work Phone: [facility] 03-21-2023 10:03-0500 Diastolic blood pressure 70 mm[Hg] Alize Doty MD Work Phone: [facility] 03-21-2023 10:03-0500 Heart rate 80 /min Alize Doty MD Work Phone: [facility] 03-21-2023 10:03-0500 Systolic blood pressure 102 mm[Hg] Alize Doty MD Work Phone: [facility] 03-21-2023 10:01-0500 Body height 170.2 cm Alize Doty MD Work Phone: [facility] 03-21-2023 10:01-0500 Body mass index (BMI) [Ratio] 25.06 kg/m2 Alize Doty MD Work Phone: [facility] 03-21-2023 10:01-0500 Body weight 72.58 kg Alize Doty MD Work Phone: [facility] 03-16-2023 11:00-0500 Diastolic blood pressure 67 mm[Hg] Quintin Murcia [facility] 03-16-2023 11:00-0500 Heart rate 70 /min Quintin Murcia [facility] 03-16-2023 11:00-0500 Systolic blood pressure 116 mm[Hg] Quintin Murcia [facility] 03-16-2023 09:34-0500 Body temperature 97.88 [degF] Quintin Murcia [facility] 03-16-2023 09:34-0500 Diastolic blood pressure 77 mm[Hg] Quintin Murcia [facility] 03-16-2023 09:34-0500 Heart rate 76 /min Quintin Murcia [facility] 03-16-2023 09:34-0500 Respiratory rate 20 /min Quintin Murcia [facility] 03-16-2023 09:34-0500 SaO2% (BldA) [Mass fraction] 100 % Quintin Murcia [facility] 03-16-2023 09:34-0500 Systolic blood pressure 120 mm[Hg] Quintin Murcia [facility] 02-15-2023 17:35-0500 Diastolic blood pressure 54 mm[Hg] Will Tomasa [facility] 02-15-2023 17:35-0500 Heart rate 74 /min Will Tomasa [facility] 02-15-2023 17:35-0500 Hourly Rounding Will Tomasa [facility] 02-15-2023 17:35-0500 Mean blood pressure 70 mm[Hg] Will Tomasa [facility] 02-15-2023 17:35-0500 Promise to Return Will Tomasa [facility] 02-15-2023 17:35-0500 Respiratory rate 18 /min Will Tomasa [facility] 02-15-2023 17:35-0500 SaO2% (BldA) [Mass fraction] 99 % Will Tomasa [facility] 02-15-2023 17:35-0500 Systolic blood pressure 103 mm[Hg] Will Tomasa [facility] 02-15-2023 16:35-0500 Diastolic blood pressure 56 mm[Hg] Will Tomasa [facility] 02-15-2023 16:35-0500 Heart rate 72 /min Will Tomasa [facility] 02-15-2023 16:35-0500 Hourly Rounding Will Tomasa [facility] 02-15-2023 16:35-0500 Promise to Return Will Tomasa [facility] 02-15-2023 16:35-0500 Respiratory rate 18 /min Will Tomasa [facility] 02-15-2023 16:35-0500 SaO2% (BldA) [Mass fraction] 99 % Will Tomasa [facility] 02-15-2023 16:35-0500 Systolic blood pressure 106 mm[Hg] Will Tomasa [facility] 02-15-2023 15:39-0500 Body temperature 97.7 [degF] Will Tomasa [facility] 02-15-2023 15:39-0500 Diastolic blood pressure 53 mm[Hg] Will Tomasa [facility] 02-15-2023 15:39-0500 Heart rate 76 /min Will Tomasa [facility] 02-15-2023 15:39-0500 Respiratory rate 18 /min Will Tomasa [facility] 02-15-2023 15:39-0500 SaO2% (BldA) [Mass fraction] 100 % Will Tomasa [facility] 02-15-2023 15:39-0500 Systolic blood pressure 101 mm[Hg] Will Tomasa [facility] 02-14-2023 11:39-0500 Diastolic blood pressure 60 mm[Hg] Huang FLORES [facility] 02-14-2023 11:39-0500 Heart rate 67 /min Huang FLORES [facility] 02-14-2023 11:39-0500 SaO2% (BldA) [Mass fraction] 98 % Huang FLORES [facility] 02-14-2023 11:39-0500 Systolic blood pressure 102 mm[Hg] Huang FLORES [facility] 02-10-2023 12:50-0500 Diastolic blood pressure 64 mm[Hg] Quintin Murcia [facility] 02-10-2023 12:50-0500 Heart rate 79 /min Quintin Murcia [facility] 02-10-2023 12:50-0500 Hourly Rounding Quintinchris Murcia [facility] 02-10-2023 12:50-0500 Mean blood pressure 79 mm[Hg] Quintin Murcia [facility] 02-10-2023 12:50-0500 Promise to Return Quintinchris Murcia [facility] 02-10-2023 12:50-0500 Respiratory rate 14 /min Quintin Murcia [facility] 02-10-2023 12:50-0500 SaO2% (BldA) [Mass fraction] 100 % Quintin Murcia [facility] 02-10-2023 12:50-0500 Systolic blood pressure 110 mm[Hg] Quintin Murcia [facility] 02-10-2023 11:52-0500 Body temperature 97.7 [degF] Quintin Murcia [facility] 02-10-2023 11:52-0500 Diastolic blood pressure 68 mm[Hg] Quintin Murcia [facility] 02-10-2023 11:52-0500 Heart rate 82 /min Quintin Murcia [facility] 02-10-2023 11:52-0500 Respiratory rate 14 /min Quintin Murcia [facility] 02-10-2023 11:52-0500 SaO2% (BldA) [Mass fraction] 100 % Quintin Murcia [facility] 02-10-2023 11:52-0500 Systolic blood pressure 108 mm[Hg] Quintin Murcia [facility] 02-08-2023 10:19-0500 Blood Pressure Location Huang FLORES [facility] 02-08-2023 10:19-0500 Diastolic blood pressure 81 mm[Hg] Huang FLORES [facility] 02-08-2023 10:19-0500 Heart rate 90 /min Huang FLORES [facility] 02-08-2023 10:19-0500 SaO2% (BldA) [Mass fraction] 100 % Huang FLORES [facility] 02-08-2023 10:19-0500 Systolic blood pressure 119 mm[Hg] Huang FLORES [facility] 12-16-2022 13:58-0400 Blood Pressure Location Huang FLORES [facility] 12-16-2022 13:58-0400 Diastolic blood pressure 66 mm[Hg] Huang FLORES [facility] 12-16-2022 13:58-0400 Heart rate 57 /min Huang FLORES [facility] 12-16-2022 13:58-0400 SaO2% (BldA) [Mass fraction] 100 % Huang FLORES [facility] 12-16-2022 13:58-0400 Systolic blood pressure 108 mm[Hg] Huang FLORES [facility] 11-15-2022 10:02-0400 Blood Pressure Location Drake Chadwick [facility] 11-15-2022 10:02-0400 Body temperature 97.7 [degF] Drake Gutierrezpsey [facility] 11-15-2022 10:02-0400 Diastolic blood pressure 78 mm[Hg] Drake Genao [facility] 11-15-2022 10:02-0400 Heart rate 70 /min Drake hCadwick [facility] 11-15-2022 10:02-0400 SaO2% (BldA) [Mass fraction] 99 % Drake Gutierrezpsey [facility] 11-15-2022 10:02-0400 Systolic blood pressure 122 mm[Hg] Drake Chadwick [facility] 11-03-2022 09:34-0400 Blood Pressure Location GIOVANNI HAWTHORNE [facility] 11-03-2022 09:34-0400 Body temperature 97.16 [degF] GIOVANNI HAWTHORNE [facility] 11-03-2022 09:34-0400 Diastolic blood pressure 72 mm[Hg] GIOVANNI HAWTHORNE [facility] 11-03-2022 09:34-0400 Heart rate 95 /min GIOVANNI HAWTHORNE [facility] 11-03-2022 09:34-0400 SaO2% (BldA) [Mass fraction] 99 % GIOVANNI HAWTHORNE [facility] 11-03-2022 09:34-0400 Systolic blood pressure 120 mm[Hg] GIOVANNI TOMLINTIZ [facility] 11-02-2022 13:23-0400 Diastolic blood pressure 67 mm[Hg] Hasan AMIR [facility] 11-02-2022 13:23-0400 Heart rate 67 /min Hasan AMIR [facility] 11-02-2022 13:23-0400 Mean blood pressure 82 mm[Hg] Hasan AMIR [facility] 11-02-2022 13:23-0400 Respiratory rate 17 /min Hasan AMIR [facility] 11-02-2022 13:23-0400 Systolic blood pressure 112 mm[Hg] Hasan AMIR [facility] 11-02-2022 13:00-0400 Hourly Rounding Hasan AMIR [facility] 11-02-2022 13:00-0400 Promise to Return Hasan AMIR [facility] 11-02-2022 12:00-0400 Hourly Rounding Hasan AMIR [facility] 11-02-2022 12:00-0400 Promise to Return Hasan AMIR [facility] 11-02-2022 11:05-0400 Heart rate 67 /min Hasan AMIR [facility] 11-02-2022 11:05-0400 SaO2% (BldA) [Mass fraction] 98 % Hasan AMIR [facility] 11-02-2022 11:04-0400 Body temperature 98.06 [degF] Hasan AMIR [facility] 11-02-2022 11:04-0400 Diastolic blood pressure 67 mm[Hg] Hasan AMIR [facility] 11-02-2022 11:04-0400 Mean blood pressure 82 mm[Hg] Hasan AMIR [facility] 11-02-2022 11:04-0400 Systolic blood pressure 112 mm[Hg] Hasan AMIR [facility] 11-02-2022 11:00-0400 Hourly Rounding Hasan AMIR [facility] 11-02-2022 11:00-0400 Promise to Return Hasan AMIR [facility] 11-02-2022 08:11-0400 SaO2% (BldA) [Mass fraction] 99 % Hasan AMIR [facility] 11-02-2022 06:17-0400 Heart rate 64 /min Hasan AMIR [facility] 11-02-2022 06:17-0400 SaO2% (BldA) [Mass fraction] 99 % Hasan AM[facility] 11-02-2022 06:17-0400 Respiratory rate 14 /min Hasan AMIR [facility] 11-02-2022 06:16-0400 Body temperature 97.7 [degF] Hasan AMIR [facility] 11-02-2022 06:16-0400 Diastolic blood pressure 65 mm[Hg] Hasan AMIR [facility] 11-02-2022 06:16-0400 Mean blood pressure 78 mm[Hg] Hasan AMIR [facility] 11-02-2022 06:16-0400 Systolic blood pressure 103 mm[Hg] Hasan AMIR [facility] 11-02-2022 01:44-0400 Heart rate 70 /min Hasan AMIR [facility] 11-02-2022 01:44-0400 Mean blood pressure 81 mm[Hg] [facility] [facility] 11-[facility]-2022 01:44-0400 Respiratory rate 18 /min [facility] 11-02-2022 00:00-0400 Body temperature 96.8 [degF] [facility] 11-02-2022 00:00-0400 Heart rate 63 /min [facility] 11-02-2022 00:00-0400 Mean blood pressure 88 mm[Hg] [facility] 11-01-2022 19:57-0400 Mean blood pressure 80 mm[Hg] [facility] 11-01-2022 18:55-0400 Body temperature 98.06 [degF] [facility] 11-01-2022 18:43-0400 Body temperature 97.7 [degF] [facility] 11-01-2022 18:05-0400 Blood Pressure Location [facility] 11-01-2022 18:05-0400 Body temperature 97.7 [degF] [facility] 11-01-2022 18:05-0400 Heart rate 57 /min [facility] 11-01-2022 13:35-0400 Body temperature 97.88 [degF] [facility] 09-28-2022 23:52-0400 Body temperature 97.52 [degF] [facility] 09-28-2022 23:52-0400 Diastolic blood pressure 69 mm[Hg] [facility] 09-28-2022 23:52-0400 Heart rate 75 /min Kaylinn [facility] 09-28-2022 23:52-0400 Respiratory rate 15 /min Kaylinn [facility] 09-28-2022 23:52-0400 SaO2% (BldA) [Mass fraction] 99 % Kaylinn [facility] 09-28-2022 23:52-0400 Systolic blood pressure 100 mm[Hg] Kaylinn [facility] 07-02-2022 11:23-0400 Blood Pressure Location KATELYN SIDELL [facility] 07-02-2022 11:23-0400 Body temperature 98.06 [degF] KATELYN SIDELL [facility] 07-02-2022 11:23-0400 Diastolic blood pressure 62 mm[Hg] KATELYN SIDELL [facility] 07-02-2022 11:23-0400 Heart rate 58 /min KATELYN SIDELL [facility] 07-02-2022 11:23-0400 SaO2% (BldA) [Mass fraction] 100 % KATELYN SIDELL [facility] 07-02-2022 11:23-0400 Systolic blood pressure 110 mm[Hg] KATELYN SIDELL [facility] 05-11-2022 23:58-0500 Heart rate 75 /min [facility] 05-11-2022 23:58-0500 Hourly Rounding [facility] 05-11-2022 23:58-0500 Respiratory rate 16 /min [facility] 05-11-2022 23:58-0500 SaO2% (BldA) [Mass fraction] 99 % [facility] 05-11-2022 22:08-0500 Diastolic blood pressure 67 mm[Hg] [facility] 05-11-2022 22:08-0500 Heart rate 67 /min [facility] 05-11-2022 22:08-0500 Hourly Rounding [facility] 05-11-2022 22:08-0500 Mean blood pressure 82 mm[Hg] [facility] 05-11-2022 22:08-0500 Respiratory rate 16 /min [facility] 05-11-2022 22:08-0500 SaO2% (BldA) [Mass fraction] 98 % Quintin [facility] 05-11-2022 22:08-0500 Systolic blood pressure 113 mm[Hg] [facility] 05-11-2022 21:05-0500 Body temperature 97.52 [degF] Quintin [facility] 05-11-2022 21:05-0500 Diastolic blood pressure 70 mm[Hg] Quintin [facility] 05-11-2022 21:05-0500 Heart rate 73 /min Quintin [facility] 05-11-2022 21:05-0500 Hourly Rounding [facility]in [facility] 05-11-2022 21:05-0500 Respiratory rate 20 /min Quintin [facility] 05-11-2022 21:05-0500 SaO2% (BldA) [Mass fraction] 100 % Quintin [facility] 05-11-2022 21:05-0500 Systolic blood pressure 109 mm[Hg] Quintin [facility] 04-20-2022 15:16-0500 Blood Pressure Location KATELYN SIDELL [facility] 04-20-2022 15:16-0500 Body temperature 98.06 [degF] KATELYN SIDELL [facility] 04-20-2022 15:16-0500 Diastolic blood pressure 70 mm[Hg] KATELYN SIDELL [facility] 04-20-2022 15:16-0500 Heart rate 83 /min KATELYN SIDELL [facility] 04-20-2022 15:16-0500 SaO2% (BldA) [Mass fraction] 99 % KATELYN SIDELL [facility] 04-20-2022 15:16-0500 Systolic blood pressure 104 mm[Hg] KATELYN SIDELL [facility] 03-05-2022 00:00-0500 Body temperature 98.24 [degF] [facility] 03-05-2022 00:00-0500 Diastolic blood pressure 88 mm[Hg] [facility] 03-05-2022 00:00-0500 Heart rate 78 /min [facility] 03-05-2022 00:00-0500 Mean blood pressure 99 mm[Hg] [facility] 03-05-2022 00:00-0500 Respiratory rate 18 /min [facility] 03-05-2022 00:00-0500 SaO2% (BldA) [Mass fraction] 97 % [facility] 03-05-2022 00:00-0500 Systolic blood pressure 120 mm[Hg] [facility] 03-04-2022 23:00-0500 Diastolic blood pressure 67 mm[Hg] [facility] 03-04-2022 23:00-0500 Heart rate 75 /min [facility] 03-04-2022 23:00-0500 Mean blood pressure 86 mm[Hg] [facility] 03-04-2022 23:00-0500 Respiratory rate 17 /min [facility] 03-04-2022 23:00-0500 SaO2% (BldA) [Mass fraction] 98 % [facility] 03-04-2022 23:00-0500 Systolic blood pressure 123 mm[Hg] [facility] 03-04-2022 22:00-0500 Body temperature 97.7 [degF] [facility] 03-04-2022 22:00-0500 Mean blood pressure 100 mm[Hg] [facility] 03-04-2022 22:00-0500 Systolic blood pressure 125 mm[Hg] [facility] 01-06-2022 10:15-0400 Body temperature 98.24 [degF] [facility] 01-06-2022 10:15-0400 Diastolic blood pressure 84 mm[Hg] [facility] 01-06-2022 10:15-0400 Heart rate 87 /min [facility] 01-06-2022 10:15-0400 Respiratory rate 18 /min [facility] 01-06-2022 10:15-0400 SaO2% (BldA) [Mass fraction] 98 % [facility] 01-06-2022 10:15-0400 Systolic blood pressure 126 mm[Hg] [facility] 09-13-2021 12:16-0400 Body temperature 98.24 [degF] Quintin [facility] 09-13-2021 12:16-0400 Diastolic blood pressure 72 mm[Hg] Quintin [facility] 09-13-2021 12:16-0400 Heart rate 70 /min Quintinchris [facility] 09-13-2021 12:16-0400 Respiratory rate 18 /min Quintinchris [facility] 09-13-2021 12:16-0400 SaO2% (BldA) [Mass fraction] 100 % Quintinchris [facility] 09-13-2021 12:16-0400 Systolic blood pressure 116 mm[Hg] [facility] Encounters Encounter Date Encounter Type Care Provider Facility Start: 05-18-2023 ambulatory Wlil L Tomasa Facility: [facility] [place] Start: 04-19-2023 ambulatory Will L Tomasa Facility: [facility] [place] Start: 04-06-2023 End: 04-07-2023 ambulatory Huang FLORES Facility:[facility] Start: 04-06-2023 End: 04-06-2023 Patient encounter procedure Huang FLORES [facility] Start: 04-04-2023 End: 04-05-2023 ambulatory William Badillo Facility: [facility] Start: 04-04-2023 End: 04-04-2023 ambulatory KEO HAND Not Available Start: 03-30-2023 End: 03-30-2023 ambulatory Urvashi Medina Facility:[facility] Start: 03-30-2023 End: 03-30-2023 ambulatory MD Urvashi Medina Work Phone: [facility] Work Phone: Start: 03-30-2023 End: 03-30-2023 Patient encounter procedure MD Urvashi Medina Work Phone: [facility] Work Phone: Start: 03-21-2023 End: 03-21-2023 ambulatory [facility] Amb[facility] Start: 03-21-2023 End: 03-21-2023 Encounter for other preprocedural examination [facility] Start: 03-21-2023 End: 03-21-2023 Office outpatient new 45 minutes Alize Doty MD Work Phone: [facility] Comment on above: Orthostatic hypotens ion (Primary Dx); Chest pain, unspecified type; Palpitations; Pre-op testing Start: 03-21-2023 End: 03-21-2023 Patient encounter status Alize Doty MD Work Phone: [facility] Work Phone: Start: 03-16-2023 End: 03-16-2023 Emergency department patient visit Quintin Murcia Facility:[facility] Start: 03-16-2023 End: 03-16-2023 Emergency department patient visit Quintin Murcia [facility] Start: 02-25-2023 End: 02-26-2023 ambulatory Will L Tomasa Facility:[facility] Start: 02-25-2023 End: 02-25-2023 Patient encounter procedure Will L Tomasa [facility] Start: 02-23-2023 End: 02-24-2023 ambulatory Will L Tomasa Facility:[facility] [place] Start: 02-21-2023 End: 02-22-2023 ambulatory Will L Tomasa Facility:[facility] [place] Start: 02-15-2023 End: 02-15-2023 Emergency department patient visit Nicolas Izquierdo Facility:[facility] Start: 02-15-2023 End: 02-15-2023 Emergency department patient visit Will Tomasa [facility] Start: 02-14-2023 End: 02-15-2023 ambulatory Huang FLORES Facility:[facility] Start: 02-14-2023 End: 02-14-2023 Patient encounter procedure Huang FLORES [facility] Start: 02-10-2023 End: 02-10-2023 Emergency department patient visit Quintin Murcia Facility:[facility] Start: 02-10-2023 End: 02-10-2023 Emergency department patient visit Quintin Murcia [facility] Start: 02-03-2023 End: 02-03-2023 ambulatory KEO HAND Not Available Start: 01-26-2023 End: 01-27-2023 ambulatory [facility] Start: 01-14-2023 End: 01-15-2023 ambulatory Will L Tomasa Facility:[facility] Start: 01-14-2023 End: 01-14-2023 Patient encounter procedure Will L Tomasa [facility] Start: 01-13-2023 ambulatory PHYSICIAN NO FAMILY Fac ility:[facility] Start: 01-03-2023 End: 01-04-2023 ambulatory Huang FLORES Facility:[facility] Start: 12-29-2022 End: 12-30-2022 ambulatory Will L Tomasa Facility:[facility] [place] Start: 12-16-2022 End: 12-17-2022 ambulatory Huang FLORES Facility:[facility] Start: 12-16-2022 End: 12-22-2022 Pre-admission assessment Huang FLORES [facility] Start: 12-16-2022 End: 12-16-2022 Patient encounter procedure Huang FLORES [facility] Start: 12-16-2022 End: 12-17-2022 ambulatory Will L Tomasa Facility:[facility] Start: 12-16-2022 End: 12-16-2022 Patient encounter procedure Will L Tomasa [facility] Start: 12-01-2022 End: 12-01-2022 Emergency department patient visit DO Winnie Frazieren Facility:[facility] Start: 11-24-2022 End: 11-25-2022 ambulatory Will L Tomasa Facility:[facility] Start: 11-24-2022 End: 11-24-2022 Patient encounter procedure Will L Tomasa [facility] Start: 11-19-2022 End: 11-20-2022 ambulatory Will L Tomasa Facility:[facility] [place] Start: 11-16-2022 End: 11-17-2022 ambulatory Drake Genao Facility:[facility] Start: 11-16-2022 End: 11-16-2022 Patient encounter procedure Drake Genao [facility] Start: 11-15-2022 End: 11-16-2022 ambulatory Drake Genao Facility:[facility] Start: 11-15-2022 End: 11-16-2022 ambulatory Drake Genao Facility:[facility] Start: 11-15-2022 End: 11-15-2022 Lab Drop off Drake Genao [facility] Start: 11-15-2022 End: 11-15-2022 Patient encounter procedure Drake Genao [facility] Start: 11-09-2022 End: 11-10-2022 ambulatory Will L Tomasa Facility:[facility] Start: 11-04-2022 ambulatory Will Tomasa Facility:[facility] Start: 11-03-2022 End: 12-13-2022 ambulatory Will L Tomasa Facility:CD:[id number] Start: 11-03-2022 End: 11-04-2022 ambulatory GIOVANNI HAWTHORNE Facility:[facility] Start: 11-03-2022 End: 11-03-2022 Patient encounter procedure GIOVANNI HAWTHORNE [facility] Start: 11-01-2022 End: 11-02-2022 ambulatory Wilbert Viveros Facility:[facility] Start: 11-01-2022 End: 11-02-2022 Observation Juan RODAS [facility] Start: 09-29-2022 End: 09-29-2022 Emergency department patient visit DO Winnie Paula Facility:[facility] Start: 09-28-2022 End: 09-29-2022 Emergency department patient visit Patrickprjosefina Paula [facility] Start: 07-02-2022 End: 07-03-2022 ambulatory KATELYN W SIDELL Facility:[facility] Start: 07-02-2022 End: 07-02-2022 Patient encounter procedure KATELYN W SIDELL [facility] [place] Start: 06-22-2022 End: 06-23-2022 ambulatory KATELYN W SIDELL Facility:[facility] Start: 06-16-2022 End: 06-17-2022 ambulatory KATELYN W SIDELL Facility:[facility] Start: 06-16-2022 End: 06-16-2022 Patient encounter procedure KATELYN W SIDELL [facility] Start: 05-13-2022 End: 05-14-2022 ambulatory Sheila X Orzech Facility:[facility] Start: 05-13-2022 End: 05-13-2022 Patient encounter procedure Sheila Smith [facility] Start: 05-11-2022 End: 05-12-2022 Emergency department patient visit Quintin Murcia Facility:[facility] Start: 05-11-2022 End: 05-12-2022 Emergency department patient visit Quintin Murcia [facility] Start: 04-27-2022 End: 04-28-2022 ambulatory KATELYN W ALEJANDRA Facility:[facility] Start: 04-27-2022 End: 04-27-2022 Patient encounter procedure KATELYN W SIDELL [facility] Start: 04-20-2022 End: 04-21-2022 ambulatory KATELYN W ALEJANDRA Facility:[facility] Start: 04-20-2022 End: 04-20-2022 Patient encounter procedure KATELYN W SIDELL [facility] Start: 04-19-2022 ambulatory Will Hawthorne Facility:[facility] Start: 04-14-2022 End: 04-15-[address] Bonnie Morgan Facility:[facility] Start: 03-25-2022 End: 03-25-[address] KEO HAND Facility:[facility] Start: 03-04-2022 End: 03-05-2022 Emergency department patient visit Quintin Murcia [facility] Start: 01-20-2022 End: 01-21-[address] KEO HAND Facility:[facility] Start: 01-13-2022 End: 01-13-[address] KEO HAND Facility:[facility] Start: 01-06-2022 End: 01-06-2022 Emergency department patient visit Quintin Murcia [facility] Start: 10-22-2021 End: 10-22-[address] KEO HAND Facility:[facility] Start: 09-13-2021 End: 09-13-2021 Emergency department patient visit Quintin Nini Mur[facility] Start: 08-18-[address] CHRISTINE ALAS Facility:[facility] [...] Facility:[facility] Start: 05-27-2021 End: 05-28-[address] KEO HAND Facility:[facility] Start: 04-21-2021 End: 04-21-[address] ERIC ODEN Facility:[facility] Start: 04-21-2021 End: 04-22-[address] Bonnie Morgan Facility:[facility] Procedures Date Procedure Procedure Detail Performing Clinician Start: 03-21-2023 ECG 12-LEAD ALIZE COOLEY Start: 03-21-2023 Ecg routine ecg w/le ast 12 lds w/i&r Alize Doty MD Work Phone: Start: 08-14-2021 Delivery of Products of Conception, External Approach DR Bonnie Morgan Start: 08-14-2021 Drainage of Amniotic Fluid, Therapeutic from Products of Conception, Via Natural or Artificial Opening DR Bonnie Morgan Start: 02-01-2017 Betamethasone prepar ation (product) Quintin Murcia Start: 01-31-2017 Betamethasone prepar ation (product) Quintin Murcia Start: 03-07-2007 lacerated Kidney Quintin Murcia Right Hand Surgery Quintin Puentes is Plan of Treatment Date Care Activity Detail Author Start: 2044 Zoster Vaccines (1 of 2) Zoste r Vaccines (1 of 2) [facility] Start: 08-16-2031 DTaP/Tdap/Td Vaccine s (9 - Td or Tdap) DTaP/Tdap/Td Vaccines (9 - Td or Tdap) [facility] Start: 03-21-2023 End: 03-21-2024 Choriogonadotropin ( test) [Presence] in Urine hCG, Urine, Qualitative Lab Routine Orthostatic hypotension Pre-op testing Expected: 03/21/2023 (Approximate), Expires: 03/21/2024 [facility] Work Phone: Comment on above: Expected: 03/21/2023 (Approximate), Expires: 03/21/2024 Start: 03-21-2023 End: 03-21-2025 Tilt table study [facility] Routine Orthostatic hypotension Expected: 03/21/2023 (Approximate), Expires: 03/21/[address] [facility] Service Area Work Phone: Comment on above: Expected: 03/21/2023 (Approximate), Expires: 03/21/2025 Start: 11-05-2022 Influenza vaccination Influenz a Vaccine (#1) [facility] Start: 12-15-2015 Screening for malign ant neoplasm of cervix [facility] Start: 2012 Hepatitis C screening Hepatitis C [facility] Start: 11-17-2012 Hepatitis A Vaccines (2 of 2 - 2-dose series) Hepatitis A Vaccines (2 of 2 - 2-dose series) [facility] Start: 06-14-2012 HPV Vaccines (2 - 3- dose series) HPV Vaccines (2 - 3-dose series) [facility] Start: 06-15-1995 COVID-19 Vaccine (#1) COVID-19 Vacci ne (#1) [facility] Start: 1994 HIV screening HIV Screening [facility] Start: 1994 Lipid panel Lipid Panel [facility] Start: 1994 Yearly Adult Physical Yearly Adult P hysical [facility] Immunizations Immunization Date Immunization Notes Care Provider Fa cility 08-15-2021 diphtheria, tetanus toxoids and pertussis vaccine Alize Doty MD Work Phone: [facility] Work Phone: 01-26-2019 influenza, seasonal, injectable Quintin Murcia [facility] Comment on above: Reason for Medicatio n: Other (see comment) 01-26-2019 influenza virus vaccine, unspecified formulation Alize Doty MD Work Phone: [facility] Work Phone: 03-31-2018 influenza virus vaccine, unspecified [facility] 04-08-2017 tetanus toxoid, redu bethany diphtheria toxoid, and acellular pertussis vaccine, adsorbed Quintin Murcia [facility] Comment on above: Reason for Medicatio n: Other (see comment) 04-27-2013 RHO(D) immune globul in- IV or IM Alize Doty MD Work Phone: [facility] Work Phone: 05-17-2012 hepatitis A vaccine, pediatric/adolescent dosage, 2 dose schedule Alize Doty MD Work Phone: [facility] Work Phone: 05-17-2012 hepatitis A vaccine, unspecified formulation GIOVANNI HAWTHORNE [facility] 05-17-2012 HPV, unspecified formulation GIOVANNI HAWTHORNE [facility] 05-17-2012 human papilloma viru s vaccine, quadrivalent Alize Doty MD Work Phone: [facility] Work Phone: 05-17-2012 meningococcal ACWY vaccine, unspecified formulation [facility] 05-17-2012 meningococcal polysaccharide (groups A, C, Y and W-135) diphtheria toxoid conjugate vaccine (MCV4P) Alize Doty MD Work Phone: [facility] Work Phone: 05-17-2012 tetanus toxoid, redu bethany diphtheria toxoid, and acellular pertussis vaccine, adsorbed [facility] 05-17-2012 varicella virus vaccine AMADO MAYUR HAWTHORNE [facility] 05-17-2012 hepatitis A and hepatitis B vaccine Alize Doty MD Work Phone: [facility] Work Phone: 01-22-2009 novel [id number], preservative-free, injectable Alize Doty MD Work Phone: [facility] Work Phone: 01-12-2000 diphtheria, tetanus toxoids and acellular pertussis vaccine, unspecified formulation Alize Doty MD Work Phone: [facility] Work Phone: 01-12-2000 DTaP, unspecified formulation [facility] 01-12-2000 measles, mumps and rubella virus vaccine [facility] 01-12-2000 poliovirus vaccine, unspecified formulation Alize Doty MD Work Phone: [facility] Work Phone: 01-21-1999 haemophilus influenz ae type b vaccine, PRP-T conjugate [facility] 03-11-1998 varicella virus vaccine AMADO MAYUR HAWTHORNE [facility] 08-10-1996 diphtheria, tetanus toxoids and acellular pertussis vaccine, unspecified formulation Alize Doty MD Work Phone: [facility] Work Phone: 08-10-1996 DTaP, unspecified formulation [facility] 08-10-1996 measles, mumps and rubella virus vaccine [facility] 09-29-1995 hepatitis B vaccine, adult dosage [facility] 06-28-1995 DTP-Haemophilus influenzae type b conjugate vaccine Alize Doty MD Work Phone: [facility] Work Phone: 06-28-1995 DTP-Hib [facility] 06-28-1995 poliovirus vaccine, unspecified formulation Alize Doty MD Work Phone: [facility] Work Phone: 05-05-1995 DTP-Haemophilus influenzae type b conjugate vaccine Alize Doty MD Work Phone: [facility] Work Phone: 05-05-1995 [facility] 05-03-1995 poliovirus vaccine, unspecified formulation Alize Doty MD Work Phone: [facility] Work Phone: 02-21-1995 DTP-Haemophilus influenzae type b conjugate vaccine Alize Doty MD Work Phone: [facility] Work Phone: 02-21-1995 DTP-Hib GIOVANNI TOMLINTIZ [facility] 02-21-1995 poliovirus vaccine, unspecified formulation Alize Doty MD Work Phone: [facility] Work Phone: 01-14-1995 hepatitis B vaccine, adult dosage GIOVANNI HAWTHORNE [facility] 1994 hepatitis B vaccine, adult dosage [place] HAW[place]NE [facility] NEGATED: Highlighted row has not occurred!12-16-2022 influenza virus vaccine, unspecified formulation Huang FLORES [facility] NEGATED: Highlighted row has not occurred!01-05-2022 influenza virus vaccine, unspecified formulation Quintin Twin [facility] Payers Date Payer Category Payer Self-pay 2021 Unknown CHIKISNYPAO SALDIVAR TRU [id number] 2021-Present P Denise Jacobo [address] [place] [address] [id number]. [id number] 1994 Unknown [id number] 2.16.840.1.796278.3.579.2.593 1994 Unknown [id number] 2.16.840.1.451814.3.579.2.593 1994 Unknown [id number] 2.16.840.1.088204.3.579.2.593 1994 Unknown [id number] 2.16.840.1.874178.3.579.2.593 1994 Unknown [id number] 2.16.840.1.478913.3.579.2.593 1994 Unknown [id number] 2.16.840.1.440127.3.579.2.593 1994 Unknown [id number] 2.16.840.1.829551.3.579.2.593 1994 Unknown [id number] 2.16.840.1.205142.3.579.2.593 1994 Unknown [id number] 2.16.840.1.294304.3.579.2.593 1994 Unknown [id number] 2.16.840.1.452717.3.579.2.593 1994 Unknown [id number] 2.16.840.1.793162.3.579.2.593 1994 Unknown [id number] 2.16.840.1.477956.3.579.2.593 1994 Unknown [id number] 2.16.840.1.716894.3.579.2.593 1994 Unknown [id number] 2.16.840.1.795239.3.579.2.593 1994 Unknown [id number] 2.16.840.1.046287.3.579.2.593 1994 Unknown [id number] 2.16.840.1.187252.3.579.2.1244 1994 Unknown [id number] 2.16.840.1.379573.3.579.2.1259 1994 Unknown [id number] 2.16.840.1.651706.3.579.2.1259 1994 Unknown [id number] 2.16.840.1.949158.3.579.2.727 1994 Unknown [id number] 2.16.840.1.180846.3.579.2.727 1994 Unknown [id number] 2.16.840.1.513893.3.579.2.727 1995 Unknown [id number] 2.16.840.1.865628.3.579.2.72 1994 Unknown [id number] 2.16.840.1.399803.3.579.2 1994 Unknown [id number] 2.16.840.1.984097.3.579.2. 1994 Unknown [id number] 2.16.840.1.450419.3.579.2 1994 Unknown [id number] 2.16.840.1.090061.3.579.2 1994 Unknown [id number] 2.16.840.1.716890.3.579.2 1994 Unknown [id number] 2.16.840.1.201669.3.579.2 1994 Unknown [id number] 2.16.840.1.434250.3.579.2 1994 Unknown [id number] 2.16.840.1.685171.3.579.2 1994 Unknown [id number] 2.16.840.1.610400.3.579.2 1994 Unknown [id number] 2.16.840.1.643344.3.579.2 1994 Unknown [id number] 2.16.840.1.705272.3.579.2 1994 Unknown [id number] 2.16.840.1.019452.3.579.2 1994 Unknown [id number] 2.16.840.1.631374.3.579.2 1994 Unknown [id number] 2.16.840.1.123698.3.579.2 1994 Unknown [id number] 2.16.840.1.769761.3.579.2.727 1994 Unknown [id number] 2.16.840.1.373967.3.579.2.727 1994 Unknown [id number] 2.16.840.1.079694.3.579.2.727 1994 Unknown [id number] 2.16.840.1.865803.3.579.2.72 1994 Unknown [id number] 2.16.840.1.426472.3.579.2.72 1994 Unknown [id number] 2.16.840.1.464207.3.579.2.72 1994 Unknown [id number] 2.16.840.1.531090.3.579.2.72 1994 Unknown [id number] 2.16.840.1.067407.3.579.2.72 1994 Unknown [id number] 2.16.840.1.802134.3.579.2.72 1994 Unknown [id number] 2.16.840.1.174053.3.579.2.72 1994 Unknown [id number] 2.16.840.1.672589.3.579.2.72 1994 Unknown [id number] 2.16.840.1.070864.3.579.2.72 1994 Unknown [id number] 2.16.840.1.911336.3.579.2.72 1994 Unknown [id number] 2.16.840.1.705111.3.579.2.72 1994 Unknown [id number] 2.16.840.1.940844.3.579.2.72 1994 Unknown [id number] 2.16.840.1.459041.3.579.2.727 1959 Unknown [id number] 1959 Unknown [id number] Unknown [id number] 2.16.840.1.287923.3.579.2.531 Unknown [id number] 2.16.840.1.519041.3.579.2.531 Social History Date Type Detail Facility Start: 11-28-2020 End: 03-21-2023 Tobacco smoking status Ex-smoker (finding) [facility] Sex Assigned At Female [facility] Tobacco [facility] Comment on above: vapes Tobacco smoking status No Smokin g Status Entered [facility] Start: 07-02-2022 End: 11-03-2022 Tobacco smoking status Never smoked tobacco (finding) [facility] Comment on above: vapes Tobacco smoking status Never [facility] Comment on above: vapes History of tobacco use Current smoker [facility] Work Phone: History of tobacco use Cigarette Smoker U [facility] Work Phone: Start: 03-21-2023 Tobacco use and exposure User of smokeless tobacco [facility] Work Phone: Start: 03-21-2023 Alcohol intake Lifetime non-d celeste (finding) [facility] Work Phone: Start: 1995 Sex Assigned At Not on file [facility] Work Phone: Start: 03-11-2023 End: 03-21-2023 Exposure to SARS-CoV-2 (event) Not sure [facility] Start: 1995 Sex Assigned At Female [facility] Functional Status Date Assessment Result Facility 04-06-2023 Functional Status N/A [facility] 03-16-2023 Functional Status N/A [facility] 02-15-2023 Functional Status N/A [facility] 02-14-2023 Functional Status No [facility] 02-10-2023 Functional Status N/A [facility] 02-08-2023 Functional Status [facility] 12-16-2022 Functional Status No [facility] 11-15-2022 Functional Status N/A [facility] 11-03-2022 Functional Status N/A [facility] 11-01-2022 Functional Status No [facility] 11-01-2022 Functional Status [facility] 09-28-2022 Functional Status N/A [facility] 07-02-2022 Functional Status N/A [facility] 05-11-2022 Functional Status N/A [facility] 04-20-2022 Functional Status N/A [facility] 03-04-2022 Functional Status N/A [facility] 01-06-2022 Functional Status Yes [facility] 09-13-2021 Functional Status N/A [facility] Clinical Notes 09-13-2021 to 03-21-2023 Alize Doty MD - 03/21/2023 9:15 AM ESTPatient Instructions Note Date & Type Note Facility 03-21-2023 Note Normal sinus rhythm at 66 bpm, MD interval 196 ms QRS duration 96 ms QTc 429 ms abnormal R wave progression, etiology unclear, possibly related to lead placement? Not suspecting anterior wall myocardial infarction An EKG from March 2023 showed R wave progression. [facility] 03-21-2023 History of Present illness Narrative Referred by Will Hawthorne CNP for Establish Care and Syncope History Of Present Illness: Kassie Diallo is a 27 y.o. female presenting with multiple bouts of lightheadedness, dating back to high school, and palpitations which are described as a strong heartbeat sensation that occurs when she is lying down particularly if she lays on her left side. She is a non-smoker Family history of postural orthostatic tachycardia syndrome Migraine headaches 2-3 times a week Works at [employer] Mother of 4 children, youngest 1-1/2 years old Has not passed out, but has become very close to passing out on multiple occasions No history of CAD or valvular heart diseas Not a diabetic Has issues pertaining to cervical spine, with paresthesias in upper extremities Reviewed detailed office note by primary care Patient has been seeing Dr. 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 Past Surgical History: She has a past surgical history that includes Hand surgery (Right) and [place] tooth extraction. Social History: She reports that she has quit smoking. Her smoking use included cigarettes. She uses smokeless tobacco. She reports that she does not drink alcohol and does not use drugs. Family History: Family History Problem Relation Name Age of Onset Asthma Mother Asthma Father Hypertension Father Familial dysautonomia Father ADD / ADHD Sister Other (pots) Sister Allergies: Clindamycin and Cephalexin Outpatient Medications: Current Outpatient Medications Medication Instructions LORazepam (ATIVAN) 0.5 mg, oral, Every 6 hours PRN SUMAtriptan (IMITREX) 50 mg, oral, Once as needed Last Recorded Vitals: Vitals: 03/21/23 1001 03/21/23 1002 03/21/23 1003 BP: 122/64 116/60 102/70 BP Location: Right arm Right arm Right arm Patient Position: Lying Sitting Standing Pulse: 66 80 80 Weight: 72.6 kg (160 lb) Height: 1.702 m (5' 7 ) Physical Exam: Orthostatic hypotension is noted. GENERAL APPEARANCE: Well developed, well nourished, in no acute distress. CHEST: Symmetric and non-tender. INTEGUMENT: Skin warm and dry, without gross excoriationis or lesions. HEENT: No gross abnormalities, no jugular venous distention no carotid bruit or scleral icterus NECK: Supple, no JVD, no bruit. Thyroid not palpable. Carotid upstrokes normal. NEURO/PSHCY: Alert and oriented x3; appropriate behavior and responses and responses, with normal balance and coordination LUNGS: Clear to auscultation bilaterally; normal respiratory effort. HEART: Rate and rhythm regular with no evident murmur; no gallop appreciated. There are no rubs, clicks or heaves. I do not appreciate any clinical evidence of mitral valve prolapse. Or pulmonary hypertension ABDOMEN: Soft, nontender, no masses or bruits. MUSCULOSKELETAL: No obvious deformity identified EXTREMITIES: Warm There is no edema noted. PERIPHERAL VASCULAR: Pulses present and equally palpable; 2+ throughout. Last Labs: Reviewed labs from 03/15/2023-BUN 43 creatinine 1.88 GFR 35 sodium 138 potassium 5.6 hemoglobin and hematocrit of 12.5 and 37.3. Lab review: I have personally reviewed the laboratory result(s) CBC, comprehensive profile results urine hCG results D-dimer and troponin results reviewed Assessment/Plan Patient has orthostatic dizziness and presyncope I suspect that she may be prone to vasodepressor syncope's rather than postural orthostatic tachycardia syndrome She says her heart rate tends to run slow at times, and that is probably when her ectopic beats kick in Palpitations-this sounds like ventricular premature beats and they are more prominent when she is laying down that makes me think that bradycardia precipitates them Additional cardiac workup is in progress Patient is orthostatic in the office today. Clinical discussion: 1. Discussed lifestyle modification to include hydration, and increasing dietary sodium intake, I suggested that she try to drink 1 can of V8 juice or tomato juice daily 2. Compression socks 3. Avoid sudden changes in posture, avoid heavy meals 4. Proceed with tilt table testing, prior to that will need urine hCG 5. Magnesium oxide 400 mg p.o. daily, may increase to 400 mg p.o. twice daily as tolerated 6. Additional recommendations to be based on results of tilt table testing. 7. EKG today shows normal intervals, abnormal R wave progression which is new from the previous EKG from March 2023, and I suspect that this is related to lead placement. Clinically no indication to suspect anterior wall myocardial infarction. Echo is pending. Orthostatic hypotension - Tilt Table; Future - hCG, Urine, Qualitative; Future Chest pain, unspecified type - ECG 12 lead (Clinic Performed) Palpitations Pre-op testing - hCG, Urine, Qualitative; Future Patient will follow-up with Dr. Flores after testing, and continue ongoing primary care follow-up as well. I will be happy to see her if new issues arise that require my assistance. Thank you for allowing me to participate in Kassie's care, please do not hesitate to call if further questions arise, Sincerely, Provider Attestation - Scribe documentation All medical record entries made by the Scribe were at my direction and personally dictated by me. I have reviewed the chart and agree that the record accurately reflects my personal performance of the history, physical exam, discussion and plan. Scribe Attestation By signing my name below, I, Bo Lao LPN attest that this documentation has been prepared under the direction and in the presence of Alize Doty MD. documented in this encounter [facility] Work Phone: 03-21-2023 Instructions Rowena Beard LPN - 03/21/2023 9:15 AM EST Please bring all medicines, vitamins, and herbal supplements with you when you come to the office. Prescriptions will not be filled unless you are compliant with your follow up appointments or have a follow up appointment scheduled as per instruction of your physician. Refills should be requested at the time of your visit. documented in this encounter [facility] Work Phone: 03-16-2023 Hospital Discharge instructions Patient Education 03/16/2023 13:24:18 Nonspecific Chest Pain, Adult Nonspecific Chest Pain, Adult Chest pain is an uncomfortable, tight, or painful feeling in the chest. The pain can feel like a crushing, aching, or squeezing pressure. A person can feel a burning or tingling sensation. Chest pain can also be felt in your back, neck, jaw, shoulder, or arm. This pain can be worse when you move, sneeze, or take a deep breath. Chest pain can be caused by a condition that is life-threatening. This must be treated right away. It can also be caused by something that is not life-threatening. If you have chest pain, it can be hard to know the difference, so it is important to get help right away to make sure that you do not have a serious condition. Some life-threatening causes of chest pain include: Heart attack. A tear in the body's main blood vessel (aortic dissection). Inflammation around your heart (pericarditis). A problem in the lungs, such as a blood clot (pulmonary embolism) or a collapsed lung (pneumothorax). Some non life-threatening causes of chest pain include: Heartburn. Anxiety or stress. Damage to the bones, muscles, and cartilage that make up your chest wall. Pneumonia or bronchitis. Shingles infection (varicella-zoster virus). Your chest pain may come and go. It may also be constant. Your health care provider will do tests and other studies to find the cause of your pain. Treatment will depend on the cause of your chest pain. Follow these instructions at home: Medicines Take olvb-hpc-nolejcz and prescription medicines only as told by your health care provider. If you were prescribed an antibiotic medicine, take it as told by your health care provider. Do not stop taking the antibiotic even if you start to feel better. Activity Avoid any activities that cause chest pain. Do not lift anything that is heavier than 10 lb (4.5 kg), or the limit that you are told, until your health care provider says that it is safe. Rest as directed by your health care provider. Return to your normal activities only as told by your health care provider. Ask your health care provider what activities are safe for you. Lifestyle Do not use any products that contain nicotine or tobacco, such as cigarettes, e-cigarettes, and chewing tobacco. If you need help quitting, ask your health care provider. Do not drink alcohol. Make healthy lifestyle changes as recommended. These may include: ?Getting regular exercise. Ask your health care provider to suggest some exercises that are safe for you. ?Eating a heart-healthy diet. This includes plenty of fresh fruits and vegetables, whole grains, low-fat (lean) protein, and low-fat dairy products. A dietitian can help you find healthy eating options. ?Maintaining a healthy weight. ?Managing any other health conditions you may have, such as high blood pressure (hypertension) or diabetes. ?Reducing stress, such as with yoga or relaxation techniques. General instructions Pay attention to any changes in your symptoms. It is up to you to get the results of any tests that were done. Ask your health care provider, or the department that is doing the tests, when your results will be ready. Keep all follow-up visits as told by your health care provider. This is important. You may be asked to go for further testing if your chest pain does not go away. Contact a health care provider if: Your chest pain does not go away. You feel depressed. You have a fever. You notice changes in your symptoms or develop new symptoms. Get help right away if: Your chest pain gets worse. You have a cough that gets worse, or you cough up blood. You have severe pain in your abdomen. You faint. You have sudden, unexplained chest discomfort. You have sudden, unexplained discomfort in your arms, back, neck, or jaw. You have shortness of breath at any time. You suddenly start to sweat, or your skin gets clammy. You feel nausea or you vomit. You suddenly feel lightheaded or dizzy. You have severe weakness, or unexplained weakness or fatigue. Your heart begins to beat quickly, or it feels like it is skipping beats. These symptoms may represent a serious problem that is an emergency. Do not wait to see if the symptoms will go away. Get medical help right away. Call your local emergency services (911 in the [place] Do not drive yourself to the hospital. Summary Chest pain can be caused by a condition that is serious and requires urgent treatment. It may also be caused by something that is not life-threatening. Your health care provider may do lab tests and other studies to find the cause of your pain. Follow your health care provider's instructions on taking medicines, making lifestyle changes, and getting emergency treatment if symptoms become worse. Keep all follow-up visits as told by your health care provider. This includes visits for any further testing if your chest pain does not go away. This information is not intended to replace advice given to you by your health care provider. Make sure you discuss any questions you have with your health care provider. Document Revised: 05/07/2021 Document Reviewed: 05/07/2021 [employer] Patient Education 2022 [employer] Follow Up Care 03/16/2023 09:32:20 With:Huang FLORES Address: [address] [place] [address]- [phone] Business (1) When:03/19/2023 13:24:05 Comments:Keep your upcoming appointment with Dr. Flores With:Will Hawthorne Address:Unknown When:03/19/2023 13:23:34 Comments:Call the office of your primary care doctor to arrange for follow-up within the above-stated timeframe. Follow-up with your primary care doctor about this ED visit. You should review your labs, imaging, and diagnoses from this ED visit with your primary care physician. There are occasionally non-emergent findings that require additional follow-up after your ED visit. If you were prescribed medications you should discuss possible side-effects and drug interactions with your pharmacist. Call 911 or go to the nearest Emergency Department if you develop any new or worsening symptoms.Seek immediate medical attention if you develop: worsening chest pain, new chest pain, nausea, vomiting, weakness, numbness, tingling, excessive sweating, shortness of breath, difficulty breathing, loss of motion in your arms or legs, or any new or worsening symptoms. [facility] 03-16-2023 Evaluation + Plan note Extrac fanta from: Title:ED Note Author:Quintin Murcia DO Date: Chest pain (R07.9: Chest gianfranco n, unspecified) Orders: Add on Test Add on Test Automated Diff Basic Metabolic Panel Beta hCG Quantitative CBC w/ Auto Diff D-Dimer ED Cardiac Monitoring eGFR Extra SST Tube Hepatic Function Panel Oxygen Saturation Oxygen Therapy PT & PTT Saline Lock Insert Troponin 0 Hr. XR Chest Single View Future Appointments Appointment Date:04/06/2023 01:00:00 PM Scheduled Provider:Huang FLORES MD Location:[facility] Appointment Type:Cardiology Follow Up ([facility]) Future Scheduled Tests Radiology* Echo Transthoracic Complete 12/16/22 [facility]12-12-2023 Hospital Discharge instructions Patient Education 02/15/2023 18:24:56 Potassium Content of Foods Potassium Content of Foods Potassium is a mineral found in many foods and drinks. It can affect how the heart works, affect blood pressure, and keep fluids and electrolytes balanced in the body. It is important not to have toomuch potassium (hyperkalemia) or too little potassium (hypokalemia) [...] 200 mg of potassium per serving. Fruits [place]aga 1 medium (130 g) has 230 mg [...] shelf life, and food preparation. Contact a dietitianfor more information. What foods are low in [...] provider. Document Revised: 11/24/2021 Document Reviewed: 11/05/2021 [employer] Patient Education 2022 [employer] 02/15/2023 18:24:53 Hypokalemia Hypokalemia Hypokalemia means that [...] that helps you have a bowel movement (laxative)can cause diarrhea and lead to hypokalemia. Chronic [...] products, such as yogurt. General instructions Take dwme-hxj-zbjhxlf and prescription medicines only as told by [...] provider. Document Revised: 11/05/2021 Document Reviewed: 11/05/2021 [employer] Patient Education 2022 [employer] 02/15/2023 18:24:51 Diarrhea, Adult, Huha-jl-Lqfj Diarrhea, Adult Diarrhea is when you pass [...] drink that helps you replace fluids and mineralsyour body lost. It is sold at pharmacies and stores. Drink plenty of fluids, such as: ?Water. ?Ice chips. ?Diluted fruit juice. ?Low-calorie sports drinks. ?Milk, if you want. Avoid drinking fluids that have a lot of sugar or caffeine in them. Eat bland, uxok-gk-wpdftw foods in small amounts as you are able. These foods include: ?Bananas. ?Applesauce. ?Rice. ?Low-fat (lean) meats. ?Taft. ?Crackers. Avoid alcohol. Avoid spicy or fatty foods. Medicines Take jrgk-wns-xksutpx and prescription medicines only as told by your doctor. If you were prescribed an antibiotic medicine, take it as told by your doctor. Do not stop using the antibiotic even if you start to feel better. General instructions Wash your hands often using soap and water. If soap and water are not available, use a hand roll tube setter. Others in your home should wash their [...] sold at pharmacies and stores. Eat bland, mfvr-cw-ihgowz foods in small amounts as you are [...] provider. Document Revised: 05/14/2022 Document Reviewed: 09/02/2021 [employer] Patient Education 2022 [employer]. Follow Up Care 02/15/2023 15:30:02 With:Will Mora, [facility], [facility] Address: When:02/18/2023 [facility]12-12-2023 Evaluation + Plan note Diagnostic Tests Pending * Rotavirus Ab 02/15/23 Future Scheduled Tests Radiology* Echo Transthoracic Complete 12/16/22 [facility]12-07-2023 Hospital Discharge instructions Patient Education 02/10/2023 13:19:58 Viral Gastroenteritis, [...] including rotavirus and norovirus. Norovirus is the mostcommon cause in adults. You can get sick [...] younger than 2 years. Live in a long-term. Travel on cruise ships. What are the signs or symptoms? Symptoms of this condition start suddenly 1 3 days after exposure to a virus. Symptoms may last fora few days or for as long as [...] focus of treatment is to prevent dehydration andrestore lost fluids (rehydration). This condition may be [...] and water are not available, use hand roll tube setter. Make sure that all people in your household wash their hands well and often. Take rczw-zya-vuywdnp and prescription medicines only as told by [...] flu. It can cause sudden watery diarrhea, fever,and vomiting. This condition can be passed from person to person very easily (is contagious). Take an oral rehydration solution (ORS) if told by your health care provider. This is a drink that is sold at pharmacies and retail stores. Wash your hands often, especially after having diarrhea or vomiting. If soap and water are not available, use hand roll tube setter. This information is not intended to replace advice given to you by your health care provider. Make sure you discuss any questions you have with your health care provider. Document Revised: 12/21/2021 Document Reviewed: 12/21/2021 Fetch MD Patient Education 2022 Flexcom. Follow Up Care 02/10/2023 11:48:53 With:Will Hawthorne Address: [address] [place] [address] Business (1) When:02/13/2023 13:08:33 [facility]12-07-2023 Evaluation + Plan noteExtracted from: Title:ED Note Author:Rober Solorzano PA-C te:02/10/23 Diarrhea, unspecified (R19.7 : Diarrhea, unspecified) Nausea vomiting and diarrhea (R11.2: Nausea with vomiting, unspecified) Orders: ondansetron, 4 mg = 1 tab(s), Oral, TID, # 15 tab(s), Refills(s) 0, Pharmacy: [facility]/pharmacy #[id number], 170, cm, 02/10/23 12:01:00 EST, Height/Length Dosing, [...] Scheduled Tests Radiology* Echo Transthoracic Complete 12/16/22 [facility]10-12-2023 Evaluation + Plan note Future Scheduled Tests Radiology* Echo Transthoracic Complete 12/16/22 [facility]09-11-2023 Hospital Discharge instructions Patient Education 11/15/2022 11:01:25 [...] your breasts are very tender. Medicines Take giyc-hum-cvgvxux and prescription medicines only as told by [...] provider. Document Revised: 07/16/2019 Document Reviewed: 07/16/2019 Fetch MD Patient Education 2022 Flexcom. 11/15/2022 11:01:21 Palpitations, Rzfh-gp-Zpag Palpitations Palpitations are feelings that your heartbeat [...] quitting, ask your doctor. General instructions Take dpgo-sra-aeabual and prescription medicines only as told by [...] provider. Document Revised: 07/15/2021 Document Reviewed: 07/15/2021 Fetch MD Patient Education 2022 [employer]com. Follow Up Care 11/15/2022 09:32:35 With:Tomasa GAY, Will Rice, [place], MED Address:Unknown When: Unknown [facility] 08-30-2023 Hospital Discharge instructions Patient Education 11/03/2022 11:03:46 Cervical Sprain, Prty-dd-Akfc Cervical Sprain A cervical sprain is also [...] Follow these instructions at home: Medicines Take lxog-cwg-smvrrka and prescription medicines only as told by your doctor. Ask your doctor if the medicine prescribed to you: ?Requires you to avoid driving or using heavy machinery. ?Can cause trouble pooping (constipation). You may need to take these actions to prevent or treat trouble pooping: ?Drink enough fluid to keep your pee (urine) pale yellow. ?Take frwq-ujl-vmtehme or prescription medicines. ?Eat foods that are [...] provider. Document Revised: 10/31/2019 Document Reviewed: 10/31/2019 Fetch MD Patient Education 2022 [employer]com. Follow Up Care 11/03/2022 09:13:17 With:Will Mora FAM, MED Address:Unknown When: Unknown [facility] 08-29-2023 Evaluation + Plan noteExtracted [...] GARY Dubose Within 2 to 4 weeks [address] [place] [address]- Additional Instructions: Core Measures: Stroke (Cerebrovascular Accident) [facility] [place], (Custom) Extracted from: Title:Consult Note- Neurology Author:Sailaja [...] is in the process of weaning her from breast-feeding and will set up an [...] Vital Signs Weight Extracted from: Title:ED Note Author:Trent IVY, Karie Hyatt ate:11/01/22 1. Paresthesia of right uppe r [...] Basic Metabolic Panel CBC w/ Auto Diff [place] Stroke Scale Communication Order Physician to Nursing [...] Future Appointments Appointment Date:11/09/2022 11:20:00 AM Scheduled Provider:Will Mora Location:[facility] Appointment Type:[facility]08-29-2023 NotePT Evaluation done this date. Pt. with on AM-PAC this date. No further PT needs.[facility] 11-02-2022 Hospital Discharge instructions Patient Education 11/02/2022 09:32:17 Core Measures: Stroke (Cerebrovascular Accident) [facility] [place], (Custom) Stroke (Cerebrovascular Accident) A stroke is [...] factors for stroke, work with your health ostomy care nurse to control them. High Blood Pressure: High [...] Please call [facility] Smoking Cessation Program at [phone] ([facility] [place]), or [phone], ext. [phone] Diabetes: Work with your healthcare professional to [...] low cholesterol diet, you can call our [employer] mechanical engineering technician at [phone] Ext. [phone]. The goal for total cholesterol is less [...] your risk of stroke with your health ostomy care nurse. TREATMENT TIME IS OF THE ESSENCE! Medications [...] Measures will be takento prevent short and terminal press operator complications, including aspiration pneumonia, blood clots in [...] for more information on strokes, log onto www.[facility] [email or web address].com or [email or web address] or call the [employer] at . Revised 03/2018 Follow Up Care 11/01/2022 13:31:49 With:Will Hawthorne Address: [address] [place] [address]- Business (1) When:11/05/2022 11:40:00 With:Evelyn Doss MD, NEU Address: [address] [place] [address]- When:11/30/2022 13:40:00 Comments:Neurology appt will be on 11/30/2022 at 1:40 pm with Kaylee Aldridge in the [place] OFFICEPlease bring insurance card, photo ID, and any discharge papers you have from the [facility]08-29-2023 [facility] CampusComment on above:Result Comment: Electronically Signed By: Juan RODAS MD\.br\Date and Time Signed: 11/02/22 09:26 [id number] NoteK[facility]tering Health [facility] CampusComment on above:Result Comment: Electronically Signed By: Juan RODAS MD\.br\Date and Time Signed: 11/01/22 16:37 [id number] Evaluation + Plan noteExtracted from: Title:ED Note Author:Winnie Paula DO Date :09/29/22 Acute headache (R51.9: Heada montserrat, unspecified) Orders: ketorolac, 30 mg = 1 mL, Injection, IntraMuscular, Once, Stop date 09/29/22 0:10:00 EDT, STAT, Start date 09/29/22 0:10:00 EDT, 09/29/22 0:10:[address] Head or Brain w/o Contrast [facility]07-26-2023 Hospital Discharge instructions Patient Education 09/29/2022 01:19:29 General Headache Without Cause, Cbpi-qj-Mkad General Headache Without Cause A headache is pain or discomfort you feel around the head or neck area. There are many causes and types of headaches. In some cases, the cause may not be found. Follow these instructions at home: Watch your condition for any changes. Let your doctor know about them. Take these steps to help with your condition: Managing pain Take rpew-gsl-jejdkdg and prescription medicines only as told by [...] provider. Document Revised: 07/22/2021 Document Reviewed: 07/22/2021 Fetch MD Patient Education 2022 [employer]com. Follow Up Care 09/28/2022 23:42:21 With:Wilbert Viveros Address: [address] [place] [address]- Business (1) When:10/02/2022 With:KATELYN ROBERTS Address: [address] [facility] [address] [place] [address] Business (1) When:10/02/2022 Comments:Take ibuprofen, Tylenol every 6 hours as needed for pain. Please follow-up with your primary care doctor in the next 2 to 3 days. Please return to the ED for any new or worsening symptoms. [facility]04-28-2023 Hospital Discharge instructions Patient Education 07/02/2022 12:44:58 [...] your health care provider. Take or apply kmzh-vlb-leuucyd and prescription medicines only as told by [...] provider. Document Revised: 06/03/2021 Document Reviewed: 06/03/2021 Elsevier Patient Education 2022 Fetch MD Inc. Follow Up Care 07/02/2022 09:16:57 With:KATELYN ROBERTS CNP Address: [facility] [address] [place] [address] When: Unknown [facility] 03-09-2023 Hospital Discharge instructions Patient Education 05/13/2022 [...] 05/14/2003 Document Revised: 03/08/2018 Document Reviewed: 07/26/2016 Fetch MD Patient Education 2020 [employer]com. 05/13/2022 11:29:12 Upper Respiratory Infection, Adult Upper [...] medicines to help relieve symptoms, such as: Ahwp-zdh-bszbpjb cold medicines. Cough suppressants. Coughing is a [...] and other clear broths. General instructions Take tsmn-tqa-eznlilm and prescription medicines only as told by [...] and water are not available, use hand roll tube setter. ?Avoid touching your mouth, face, eyes, or [...] 08/17/2001 Document Revised: 03/01/2019 Document Reviewed: 10/07/2017 ElseThe Point Patient Education 2020 Flexcom. Follow Up Care 05/13/2022 09:45:34 With:KATELYN ROBERTS CNP Address: [address] [place] [address] [place] [id number] When: Unknown [facility] 03-08-2023 Hospital Discharge instructions Patient [...] medicines to help relieve symptoms, such as: Rrup-pyb-jkntidx cold medicines. Cough suppressants. Coughing is a [...] and other clear broths. General instructions Take oqor-bsi-nncurdg and prescription medicines only as told by [...] and water are not available, use hand roll tube setter. ?Avoid touching your mouth, face, eyes, or [...] 08/17/2001 Document Revised: 03/01/2019 Document Reviewed: 10/07/2017 Fetch MD Patient Education 2020 Flexcom. Follow Up Care 05/11/2022 20:58:33 With:KATELYN ALEJANDRA Address: [address] [place] [address] Business (1) When:05/14/2022 Comments:Call the [...] or worsening symptoms.Tylenol and Mucinex for symptoms. [facility]03-07-2023 Evaluation + Plan noteExtracted from: Title:ED Note Author:Quintin Murcia DO Date: Acute upper respiratory infe ction (J06.9: Acute upper respiratory infection, unspecified) Orders: ECG 12 Lead Adult Group A Strep by PCR Rapid Strep w/rfx XR Chest Single View Future Scheduled Tests Radiology* XR Hand 3+ Views Right 04/21/22 [facility]02-15-2023 Evaluation + Plan note Future Scheduled Tests Radiology* XR Hand 3+ Views Right 04/21/22 [facility]12-30-2022 Evaluation + Plan noteExtracted from: Title:ED Note Author:Shannen Ceja PA-C e:03/05/22 1. Flu-like symptoms (R68.89 : Other general symptoms and signs) Orders: fluticasone nasal, 2 spray(s), Nasal, Daily, 16 gram, Refill(s) 0, each nostril, [facility]/pharmacy #[id number], 170, cm, 03/04/22 21:57:00 EST, Height/Length Dosing, 76.1, kg, 03/04/22 21:57:00 EST, Weight Dosing Rapid COVID Antigen ([facility]) Resp.syn.virus (Rsv) 26-year-old female presents to the [...] voices understanding and is agreeable to plan. [facility]12-30-2022 Hospital Discharge instructions Patient Education 03/05/2022 00:02:33 [...] Your health care provider may recommend: Taking epfb-six-wentsia medicines. Drinking plenty of fluids. In many [...] juice, and low-calorie sports drinks. Eat bland, rswd-bu-ubkulk foods in small amounts as you are able. These foods include bananas, applesauce, rice, lean meats, toast, and crackers. Avoid drinking fluids that contain a lot of sugar or caffeine, such as energy drinks, regular sports drinks, and soda. Avoid alcohol. Avoid spicy or fatty foods. General instructions Take kkgj-kmy-qehgjde and prescription medicines only as told by [...] water are not available, use alcohol-based hand roll tube setter. Keep all follow-up visits as told by [...] 02/18/2001 Document Revised: 05/24/2019 Document Reviewed: 08/09/2018 Fetch MD Patient Education 2020 Fetch MD Inc. Follow Up Care 03/04/2022 21:49:31 With:Take Tylenol and Motrin for fevers and body aches. Use honey and cough lozenges for cough and sore throat. Follow-up with your primary care provider and return to the ED with any new or worsening symptoms. Address:Unknown When: Unknown With:Emily MICHAEL Address: [address] [place], [place] [address] [place] [phone]- Business (1) When:Within 3 Day(s) [facility]11-02-2022 Hospital Discharge instructions Patient Education 01/06/2022 11:42:30 COVID-19: How to Protect Yourself and Others - [facility] COVID-19: How to Protect Yourself and Others Know how it spreads There is currently no vaccine to prevent coronavirus disease 2019 (COVID-19). The best way to prevent illness is to avoid being exposed to this virus. The virus is thought to spread mainly from fkossc-sl-ahnosb. ?Between people who are in close contact [...] are not readily available, use a hand roll tube setter that contains at least 60% alcohol. Cover [...] at higher risk of getting very sick.www.cdc.gov/cor onavirus/2019-ncov/ivqe-eotcl-erxpvowcqpz/qjpuns-jo-tgptbk-risk.html Cover your mouth and nose with a [...] available, clean your hands with a hand roll tube setter that contains at least 60% alcohol. Clean and disinfect Clean AND disinfect frequently touched surfaces daily. This includes tables, doorknobs, light switches, countertops, handles, desks, phones, keyboards, toilets, faucets, and sinks. www.cdc.gov/coronav irus/2019-ncov/mlolsoj-mtykzfz-bvry/otqhtbtkfnhc-agkk-jbie.html If surfaces are dirty, clean them: Use [...] 06/19/2019 Document Revised: 09/13/2019 Document Reviewed: 09/13/2019 Fetch MD Patient Education 2020 Flexcom. 01/06/2022 11:42:30 COVID-19 Frequently Asked Questions COVID-19 [...] the coronavirus come from? In February 2019, [place] told the World Health Organization (WHO) of several cases of lung disease (human respiratory illness). These cases were linked to an open seafood and livestock market in the city of [facility]. The link to the seafood and [...] and virus naming World Health Organization (WHO): www.who.int/emergencies/diseases/znqjv-cmfofiyhwyk-4225/technical-g uidance/zdfjnh-xwd-jpvdeghwsah-disease-(covid-2019)-vqh-tga-syynk-yhuz-ltvgtl-cq Who is at risk for complications from [...] relieve his or her symptoms by using pttq-jms-yquyciz medicines that treat sneezing, coughing, and runny [...] water are not available, use alcohol-based hand roll tube setter. Avoid touching your face, mouth, nose, or [...] Prevention (CDC): www.cdc.gov/coronavirus/2019-ncov/travelers/index.html World Health Organization (WHO): www.who.int/emergencies/diseases/fizgh-mhbonkapscn-8599/travel-advice Know the risks and take action to [...] water are not available, use alcohol-based hand roll tube setter. Cough or sneeze into a tissue, sleeve, [...] in hot, soapy water or use a visual specialist. Air-dry your dishes. Wash laundry in [...] Health Organization (WHO) Information and news updates: www.who.int/emergencies/diseases/gitym-uqspzojfldn-9953 Coronavirus health topic: www.who.int/health-topics/coronavirus Questions and answers on COVID-19: www.who.int/news-room/q-a-detail/s-l-nzziytaxkmxqg Global tracker: who.[employer]dot[employer].TheRouteBox [employer] Pediatric[employer] (AAP) Information for families: www.healthychildren.org/Azeri/health-issues/conditions/chest-lungs/Pages /0964-Xhodp-Rocfauinqcv.aspx The coronavirus situation is changing rapidly. Check [...] 06/19/2019 Document Revised: 06/19/2019 Document Reviewed: 06/19/2019 Fetch MD Patient Education 2019 Flexcom. 01/06/2022 11:42:30 COVID-19 COVID-19 COVID-19 is a [...] to fight infection (immunocompromised). Live in a long-term or long-term care facility. Have a long-term [...] managed at home with rest, fluids, and fjhv-ske-algtnkk medicines. Treatment for a serious infection usually [...] are safe for you. General instructions Take eybg-vnz-byalztm and prescription medicines only as told by [...] high-risk areas and travel restrictions, check the [facility] travel website: wwwnc.cdc.gov/travel/notices If you live in, or must travel to, an area where COVID-19 is a risk, take precautions to avoid infection. ?Stay away from people who are sick. ?Wash your hands often with soap and water for 20 seconds. If soap and water are not available, usean alcohol-based hand roll tube setter. ?Avoid touching your mouth, face, eyes, or [...] water are not available, use alcohol-based hand roll tube setter. Stay away from other members of your [...] have a weak immunity, live in a long-term, or have chronic disease. There is no [...] 03/29/2019 Document Revised: 07/19/2019 Document Reviewed: 03/29/2019 Elsevier Patient Education 2019 Flexcom. Follow Up Care 01/06/2022 10:01:13 With:Emily MICHAEL Address: [address] [place], [place] [address] [place] [address]- [facility] (1) When:01/09/2022 11:19:47 Comments:Follow-up with your primary care provider in 3 to 5 days. If symptoms worsen, do not improve, or new symptoms arise please report back to emergency department for further evaluation. [facility]07-10-2022 Hospital Discharge instructions Patient Education 09/13/2021 13:27:15 [...] molars is sometimes referred to as wisdomteeth. [place] teeth are most often affected by this [...] Follow these instructions at home: Medicines Take flvo-ekc-mhjhojo and prescription medicines only as told by [...] as fried or sweet foods. ?Take an creo-lcs-knlvldd or prescription medicine for constipation. General instructions [...] 10/20/2011 Document Revised: 04/14/2018 Document Reviewed: 02/06/2018 Fetch MD Patient Education 2020 Flexcom. 09/13/2021 13:27:15 Dental Pain Dental Pain Dental [...] discomfort that you are feeling: Medicines Take npnf-ork-uegeppd and prescription medicines only as told by [...] if directed by your health care provider. [place] your teeth with a soft-bristled toothbrush. General [...] pain may be mild or severe. Take rjhs-ayx-rttnefk and prescription medicines only as told by [...] 02/21/2006 Document Revised: 06/19/2019 Document Reviewed: 01/12/2018 Fetch MD Patient Education 2020 Flexcom. Follow Up Care 09/13/2021 12:15:29 With:Dental: [facility] [phone] Address:Unknown When:09/16/2021 13:11:14 With:Dental: [facility] [phone] Address:Unknown When:09/16/2021 13:11:13 With:Dental: [facility] [phone] Address:Unknown When:09/16/2021 13:11:13 [facility]07-10-2022 Evaluation + Plan noteExtracted from: Title:ED Note [...] day(s), # 14 tab(s), Refills(s) 0, [id number], cm, 09/13/21 12:18:00 EDT, Height/Length Dosing, 75, kg, 09/13/21 12:18:00 EDT, Weight Dosing penicillin V potassium, 500 mg = 1 tab(s), Oral, TID, Take one tab by mouth 3 times a day. # 30, X 10 day(s), # 30 tab(s), Refills(s) 0, [id number] 170, cm, 09/13/21 12:18:00 EDT, Height/Length Dosing, 75, kg, 09/13/21 12:18:00 EDT, Weight Dosing [facility] note Future Appointments Appointment Date:06/22/2022 02:20:00 PM Scheduled Provider:KATELYN ROBERTS CNP [facility] Future Appointments Appointment Date:11/09/2022 11:20:00 AM Scheduled Provider:Will Mora Location:[facility] Appointment Type:[facility] Evaluation + Plan note Future Appointments Appointment Date:11/16/2022 12:00:00 PM Scheduled Provider: Location:.[facility] Appointment Type: EKG ([facility] Evaluation + Plan note Future Appointments Appointment Date:12/16/2022 02:00:00 PM Scheduled Provider:Huang FLORES MD [facility] () [facility] Future Appointments Appointment Date:12/21/2022 08:45:00 AM Scheduled Provider: Location:[facility] Appointment Type:CV Stress ([facility]) Appointment Date:01/26/2023 11:45:00 AM Scheduled Provider:Huang FLORES MD Location:[facility] Appointment Type:Cardiology Follow Up ([facility]) Future Scheduled Tests Radiology* Echo Transthoracic Complete 12/16/22 * ECG Stress Exercise 12/21/22 [facility] Future Appointments Appointment Date:01/26/2023 11:45:00 AM Scheduled Provider:Huang FLORES MD Location:[facility] Appointment Type:Cardiology Follow Up ([facility]) Future Scheduled Tests Radiology* Echo Transthoracic Complete 12/16/22 [facility] Future Appointments Appointment Date:01/18/2023 10:30:00 AM Scheduled Provider:Preethi BARBOSA CNP Location:[facility] Appointment Type:Cardiology Follow Up ([facility]) Future Scheduled Tests Radiology* Echo Transthoracic Complete 12/16/22 [facility] Future Appointments Appointment Date:04/06/2023 01:00:00 PM Scheduled Provider:Huang FLORES MD Location:[facility] Appointment Type:Cardiology Follow Up ([facility]) Future Scheduled Tests Radiology* Echo Transthoracic Complete 12/16/22 [facility]* Diagnosis Orthostatic hypotension- Primary Chest pain, unspecified type Palpitations Pre-op testing Unspecified pre-operative examination documented in this encounter [facility] Work Phone: Evaluation noteNo assessment information available [facility] Work Phone: Hospital course Narrative No data available for this section [facility] No data available for this section [facility] [place] Progress note No data available for this section [facility] Summary Purpose Family History No Family History [...] for this section No Family History Records FoundNo Family History Records FoundNo Family History Records Found No data available for this section No Family History Records Found Advance Directives No Advanced Directives Records Found Advance Directive Response Recorded Date/ Time Advance Directives No March 30, 2023 8:23am Reason for Referral Specialty Diagnoses / Procedures Referred By Contac t Referred To Contact Cardiology Diagnoses Orthostatic hypotension Procedures Tilt Table Alize Doty MD [address] [facility] [address] [place] [address] Referral ID Status Reason Start Date Expiration Date V isits Requested Visits Authorized Pending Review 03/21/2023 03/20/2024 1 1 Specialty Diagnoses / Procedures Referred By Contac t Referred To Contact Diagnoses Chest pain, unspecified type Procedures ECG 12 lead (Clinic Performed) Alize Doty MD [address] [facility] [address] [place] [address] Referral ID Status Reason Start Date Expiration Date V isits Requested Visits Authorized Authorized 03/21/2023 03/20/2024 1 1 Chief Complaint and Reason for Visit Chief Complaint I95.1;Z01.818 Additional Source Comments Care Team (unrecognized sect ion and content) 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 Relationship Specialty Start Date End Date Will Hawthorne 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 [address] [place] [address] PCP - General 03/21/23 Team Status: Active Member Role Status Dates [facility] Provider Active Team Status: Inactive Member Role Status Dates Alize Doty MD Attending Provider Active Star t: March 30, 2023 End: March 30, 2023 Urvashi Medina MD Referring Provider Active Start: March 30, 2023 End: March 30, 2023 KELLI Clayton Primary Care Provider Active Start: March 30, 2023 End: March 30, 2023 INFORMATION SOURCE (unrecogn ized section and content) DATE CREATED AUTHOR 04/19/2022 [facility] DATE CREATED AUTHOR 'S ORGANIZ ATION 03/22/2023 [facility] DATE CREATED AUTHOR AUTHOR'S ORGANIZ ATION 04/04/2023 [facility] EPIC DATE CREATED AUTHOR AUTHOR'S ORGANIZ ATION 04/06/2023 [facility] DATE CREATED AUTHOR AUTHOR'S ORGANIZ ATION [facility]19[facility]2023 [facility] Reason for Visit (unrecogniz ed section and content) Reason Comments Establish Care [facility] Specialty Diagnoses / Procedures Referred By Contac t Referred To Contact Diagnoses Chest pain, unspecified type Procedures ECG 12 lead (Clinic Performed) Alize Doty MD [address] [facility] [address] [place] [address] Referral ID Status Reason Start Date Expiration Date V isits Requested Visits Authorized Authorized 03/21/2023 03/20/2024 1 1 Goals (unrecognized section and content) Goals may be documented in a n alternate section FOR RECORDS PERTAINING TO PATIENTS WHO ARE [...] BE BASED ON THE PRIMARY CLINICAL RECORDS. [employer] [facility] provides no warranty or guarantee of the accuracy or completeness of information in this document.
== END 2023-04-20 11:31 | disposition home or self-care (01) ==
LOC: US 11:30
PROVIDERS: PCP Nurse Practitioner; Visit Provider Obstetrics & Gynecology
DX: N64.4 Mastodynia (principal)
CPT/HCPCS: 76641

== ENCOUNTER 2023-04-25 14:04 | Outpatient (REF) | payer OTHER, SELFPAY | END 2023-04-25 14:05 | disposition home or self-care (01) | LOC: LAB 14:04 | PROVIDERS: PCP Nurse Practitioner; Visit Provider Obstetrics & Gynecology | DX: N92.1 Excessive and frequent menstruation with irregular cycle (principal) | CPT/HCPCS: 88305 ==

== ENCOUNTER 2023-06-01 09:59 | Outpatient (OUT) | payer OTHER, SELFPAY ==
--- OUTSIDE RECORDS SUMMARY | 2023-06-01 10:13 | XMS_ITS | CCD ---
Author Organization [facility] Care Team Providers Care Tax Investigator Name Role Phone Emily MICHAEL Primary Care Physician Caroline SINGH Leslie Cardenas Unavailable Unavailable Eddie, DR Reddy Consulting Unavailable REQUEST, DR KING LISTED Primary Care Unavaila ble CRYSTAL, DR CROWLEY Attending Unavailable CRYSTAL, DR CROWLEY Admitting Unavailable CRYSTAL, DR CROWLEY Consulting Unavailable CRYSTAL, DR CROWLEY Consulting Unavailable REQUEST, DR NONE LISTED Primary Care Unavaila ble CRYSTAL, DR CROWLEY Attending Unavailable CRYSTAL, DR CROWLEY Admitting Unavailable CRYSTAL, DR CROWLEY Consulting Unavailable REQUEST, NONE LISTED Primary Care Unavaila ble CRYSTAL, DR CROWLEY Attending Unavailable CRYSTAL, DR CROWLEY Admitting Unavailable REQUEST, DR KING LISTED Primary Care Unavaila ble CRYSTAL, DR CROWLEY Attending Unavailable CRYSTAL, DR CROWLEY Admitting Unavailable CRYSTAL, DR CROWLEY Consulting Unavailable REQUEST, NONE LISTED Primary Care Unavaila ble CRYSTAL, DR CROWLEY Attending Unavailable CRYSTAL, DR CROLWEY Admitting Unavailable CRYSTAL, DR CROWLEY Consulting Unavailable REQUEST, NONE LISTED Primary Care Unavaila ble CRYSTAL, DR CROWLEY Attending Unavailable CRYSTAL, DR CROWLEY Admitting Unavailable KARASIK, DR REYES Consulting Unavailable REQUEST, DR KING LISTED Primary Care Unavaila ble KARASIK, DR REYES Attending Unavailable KARASIK, DR REYES Admitting Unavailable West, DR Reddy Consulting Unavailable FERNANDA, DR GIBSON Consulting Unavailab le KARASIK, DR REYES Consulting Unavailable REQUEST, NONE LISTED Primary Care Unavaila ble KARASIK, DR REYES Attending Unavailable KARASIK, DR REYES Admitting Unavailable CRYSTAL, DR CROWLEY Consulting Unavailable KARASIK, DR REYES Procedure Practitioner Unava ilable CRYSTAL, DR CROWLEY Consulting Unavailable REQUEST, DR NONE LISTED Primary Care Unavaila ble CRYSTAL, DR CROWLEY Attending Unavailable CRYSTAL, DR CROWLEY Admitting Unavailable ZIEBER, DR EVELYN Velasquez Consulting Unavailable CRYSTAL, DR CROWLEY Consulting Unavailable REQUEST, DR NONE LISTED Primary Care Unavaila ble CRYSTAL, DR CROWLEY Attending Unavailable CRYSTAL, DR CROWLEY Admitting Unavailable CRYSTAL, DR CROWLEY Consulting Unavailable REQUEST, DR NONE LISTED Primary Care Unavaila ble CRYSTAL, DR CROWLEY Attending Unavailable CRYSTAL, DR CROWLEY Admitting Unavailable KARASIK, DR REYES Consulting Unavailable REQUEST, NONE LISTED Primary Care Unavaila ble KARASIK, DR REYES Attending Unavailable KARASIK, DR REYES Admitting Unavailable CRYSTAL, DR CROWLEY Consulting Unavailable REQUEST, DR NONE LISTED Primary Care Unavaila ble CRYSTAL, DR CROWLEY Attending Unavailable CRYSTAL, DR CROWLEY Admitting Unavailable CRYSTAL, DR CROWLEY Consulting Unavailable REQUEST, DR NONE LISTED Primary Care Unavaila ble CRYSTAL, DR CROWLEY Attending Unavailable CRYSTAL, DR CROWLEY Admitting Unavailable West, DR Reddy Consulting Unavailable REQUEST, NONE LISTED Primary Care Unavaila ble CRYSTAL, DR CROWLEY Attending Unavailable CRYSTAL, DR CROWLEY Admitting Unavailable CRYSTAL, DR CROWLEY Consulting Unavailable KATELYN ROBERTS Primary Care Physician Will Hawthorne Primary Care Physician [phone] Cecilia Tijerina Unavailable Unavailable Tomasa Will COPPOLA Primary Care Provider AILZE DOTY Attending Unavailable WILL HAWTHORNE Primary Care Unavailable ALIZE DOTY Referring Unavailable MD Alize Doty Attending Provider MD Urvashi Medina Referring Provider KELLI Hawthorne Primary Care Provider JESSE ROJAS Attending Unavailable JESSE ROJAS Attending Unavailable CRYSTALJESSE LIM Attending Unavailable Jesse Rojas Attending Provider Jesse Rojas Attending Unavailable Will Hawthorne Primary Care Unavailable Jesse Rojas Admitting Unavailable Doty, Alize Admitting Unavailable Doty, Alize Attending Unavailable Urvashi Medina Referring Unavailable TomasaWill Primary Care Unavailable NO FAMILY, PHYSICIAN Primary Care Unavailable Lee Weiss Admitting Unavailab Lee Ann Attending Unavailab Winnie Albarado Attending Unavailable Quintin Murcia Attending Unavailable Huang FLORES Attending Unavailable NONE, XXXX Referring Unavailable Huang FLORES Admitting Unavailable GIOVANNI HAWTHORNE Attending Unavailable Drake Genao Attending Unavailable William Badillo Attending Unavailable SIDEKATELYN SPAIN Attending Unavailable SIDEKATELYN SPAIN Attending Unavailable Huang FLORES Attending Unavailable Huang FLORES Admitting Unavailable Tomasa, Will Rice Referring Unavailable Huang FLORES Attending Unavailable NONE, XXXX Referring Unavailable Huang FLORES Admitting Unavailable Tomasa, Will Rice Attending Unavailable Tomasa, Will Rice Attending Unavailable Tomasa, Will Rice Attending Unavailable Tomasa, Will L Attending Unavailable Tomasa, Will L Attending Unavailable Tomasa, Will L Attending Unavailable Tomasa, Will L Admitting Unavailable Tomasa, Will L Referring Unavailable SIDEKATELYN SPAIN Attending Unavailable SIDELLKATELYN Admitting Unavailable ChadwickDrake Admitting Unavailable ChadwickDraek Attending Unavailable Wilbert Viveros Consulting Unavailable AMIRJuan Attending Unavailable AMIRJuan Admitting Unavailable Wilbert Viveros Consulting Unavailable DO Wilbert Viveros Consulting Unavailable Wilbert Viveros Consulting Unavailable Tomasa, Will L Admitting Unavailable Tomasa, Will L Attending Unavailable Tomasa, Will L Admitting Unavailable Tomasa, Will L Referring Unavailable ChadwickDrake Admitting Unavailable Drake Genao Referring Unavailable Drake Genao Attending Unavailable Tomasa, Will L Attending Unavailable Tomasa, Will L Admitting Unavailable Tomasa, Will L Referring Unavailable Huang FLORES Attending Unavailable Huang FLORES Consulting Unavailable Huang FLORES Admitting Unavailable Huang FLORES Referring Unavailable Huang FLORES Consulting Unavailable Huang FLORES Consulting Unavailable Tomasa, Will L Admitting Unavailable Tomasa, Will L Referring Unavailable Tomasa, Will Rice Attending Unavailable Tomasa, Will Rice Attending Unavailable Tomasa, Will Rice Attending Unavailable Tomasa, Will Rice Attending Unavailable Tomasa, Will Rice Attending Unavailable Nicolas Izquierdo Attending Unavailable Winnie Paula Attending Unavailable Quintin Murcia Attending Unavailable Allergies Allergy Classification Reported Allergen(s) Allergy Type Date of Onset Reaction(s) Facility (20 sources) Clindamycin; Translations: [clindamycin] Drug Allergy 02-03-2023 [facility] (1 source) Clindamycin Drug Allergy [facility] Repository (2 sources) Cephalexin; Translations: [CEPHALEXIN] Drug Allergy 03-21-2023 Unknown [facility] (1 source) Clindamycin Drug Allergy 03-30-2023 [facility] Repository (1 source) Cephalexin; Translations: [Keflex] Drug Allergy [facility] Repository Medications Current Medications Medication Drug Class(es) Dates Sig (Normalized) Sig (Original) amoxicillin 500 mg oral tablet (1 source) Penicillin-class Antibacterial Start: 05-13-2022 End: 05-20-2022 take 2 tablets by mouth twice daily amoxicillin 500 mg oral tablet 1,000 mg = 2 tab(s), Oral, BID, X 7 day(s), # 28 tab(s), Refills(s) 0, Pharmacy: [facility]/pharmacy #[id number], 170.2, cm, 05/11/22 21:11:00 EST, [...] day(s), # 7 tab(s), Refills(s) 0, Pharmacy: [facility]/pharmacy #[id number], 172, cm, 11/01/22 13:44:00 EDT, [...] q8hr, # 30 cap(s), Refills(s) 0, Pharmacy: [facility]/pharmacy #[id number], 170, cm, 12/16/22 14:03:00 EDT, Height/Length Dosing, 71.4, kg, 12/16/22 14:03:00 EDT, Weight Dosing Start Date: 12/20/22 Status: Ordered Start: 11-15-2022 End: 11-20-2022 take 1 capsule by mouth every eight hours Keflex 500 mg Cap 500 mg = 1 cap(s), Oral, q8hr, X 5 day(s), # 15 cap(s), Refills(s) 0, [id number], 170, cm, 11/15/22 10:07:00 EDT, Height/Length [...] day(s), # 7 tab(s), Refills(s) 0, Pharmacy: [facility]/pharmacy #[id number], 170, cm, 04/04/23 12:02:00 EST, [...] day(s), # 8 cap(s), Refills(s) 0, Pharmacy: [facility]/pharmacy #[id number], 170, cm, 02/15/23 15:41:00 EST, Height/Length Dosing, 71.3, kg, 02/15/23 15:41:00 EST, Weight Dosing Start Date: 02/15/23 Stop Date: 02/17/23 Status: Ordered 12 hr dilTIAZem hydrochloride 120 mg extended release oral capsule (5 sources) Calcium Channel Maude Start: 12-21-2022 End: 03-21-2023 take 1 capsule by mouth once daily diltiazem 120 mg oral capsule, extended release 120 mg = 1 cap(s), Oral, Daily, X 30 day(s), # 30 cap(s), Refills(s) 2, [id number], 170, cm, 12/16/22 14:03:00 EDT, Height/Length Dosing, 71.4, kg, 12/16/22 14:03:00 EDT, Weight Dosing Start Date: 12/21/22 Stop Date: 03/21/23 Status: Ordered FLUoxetine 10 mg oral tablet (16 sources) Serotonin Reuptake Inhibitor Start: 12-29-2022 take 1 tablet by mouth once daily fluoxetine 10 mg oral tablet 10 mg = 1 tab(s), Oral, Daily, # 30 tab(s), Refills(s) 3, Pharmacy: [facility]/pharmacy #[id number], 170, cm, 12/16/22 14:03:00 EDT, Height/Length Dosing, 71.4, kg, 12/29/22 13:44:00 EDT, Weight Dosing Start Date: 12/29/22 Status: Ordered Start: 11-22-2022 take 1 capsule by [facility] once daily Prozac 20 mg Cap 20 mg = 1 cap(s), Oral, Daily, # 30 cap(s), Refills(s) 2, Pharmacy: [facility]/pharmacy #[id number], 170, cm, 11/15/22 10:07:00 EDT, Height/Length Dosing, 71.2, kg, 11/15/22 10:07:00 EDT, Weight Dosing Start Date: 11/22/22 Status: Ordered Start: 04-02-2020 take 20 mg by mouth once daily Prozac 20 mg, Oral, Daily, Refills(s) 0 Start Date: 04/02/20 Status: Ordered fluticasone propionate 0.05 mg/actuat metered dose nasal spray (4 sources) Corticosteroid Start: 03-05-2022 Flonase 0.05 m g/inh [place] 2 spray(s), Nasal, Daily, 16 gram, Refill(s) 0, each nostril, [facility]/pharmacy #[id number], 170, cm, 03/04/22 21:57:00 EST, [...] anxiety, # 10 tab(s), Refills(s) 0, Pharmacy: [facility]/pharmacy #[id number], 170, cm, 02/23/23 10:36:00 EST, [...] Daily, # 30 tab(s), Refills(s) 0, Pharmacy: [facility]/pharmacy #[id number], 170, cm, 04/04/23 12:02:00 EST, Height/Length Dosing, 74.5, kg, 04/04/23 12:02:00 EST, Weight Dosing Start Date: 04/04/23 Status: Ordered Start: 04-21-2022 take 1 tablet by [facility]un once daily meloxicam 7.5 mg Tab 7.5 mg = 1 tab(s), Oral, Daily, # 30 tab(s), Refills(s) 0, Pharmacy: [facility]/pharmacy #[id number], 170, cm, 04/20/22 15:18:00 EST, [...] pain, # 20 tab(s), Refills(s) 0, Pharmacy: [facility]/pharmacy #[id number], 170, cm, 11/30/22 23:49:00 EDT, Height/Length Dosing, 71.8, kg, 11/30/22 23:49:00 EDT, Weight Dosing Start Date: 12/01/22 Status: Ordered Start: 09-13-2021 End: 09-20-2021 take 1 tablet by mouth twice daily Naprosyn 500 mg Tab 500 mg = 1 tab(s), Oral, BID, X 7 day(s), # 14 tab(s), Refills(s) 0, Pharmacy: [facility]/pharmacy #[id number], 170, cm, 09/13/21 12:18:00 EDT, Height/Length Dosing, 75, kg, 09/13/21 12:18:00 EDT, Weight Dosing Start Date: 09/13/21 Stop Date: 09/20/21 Status: Ordered polymyxin b 00396 unt/ml / trimethoprim 1 mg/ml ophthalmic solution (1 source) Dihydrofolate Reductase Inhibitor Antibacterial, Polymyxin-class Antibacterial Start: 07-02-2022 End: 07-09-2022 Polytrim 10 mL Soln-Opth 1 drop(s), OPTH, q3hr for 7 day(s), 10 mL, Refill(s) 0, [facility]/pharmacy #[id number], 172, cm, 07/02/22 11:32:00 EDT, Height/Length Dosing, 73.1, kg, 07/02/22 11:32:00 EDT, Weight Dosing Start Date: 07/02/22 Stop Date: 07/09/22 Status: Ordered sertraline 25 mg oral tablet (6 sources) Serotonin Reuptake Inhibitor Start: 01-26-2023 take 1 tablet by mouth once daily sertraline 25 mg Tab 25 mg = 1 tab(s), Oral, Daily, # 30 tab(s), Refills(s) 2, [id number], 170, cm, 12/16/22 14:03:00 EDT, Height/Length [...] TID, # 15 tab(s), Refills(s) 0, Pharmacy: [facility]/pharmacy #[id number], 170, cm, 02/10/23 12:01:00 EST, [...] day(s), # 30 tab(s), Refills(s) 0, Pharmacy: [facility]/pharmacy #[id number], 172, cm, 11/01/22 13:44:00 EDT, [...] day(s), # 30 tab(s), Refills(s) 0, Pharmacy: [facility]/pharmacy #[id number], 170, cm, 09/13/21 12:18:00 EDT, [...] Viral infection (1 source) Disease caused by nCoV; Translations: [COVID-19] Onset: 01-06-2022 Results Test Name Value Interpretation Reference Range Facility Insurance Correspondenceon 0 05-24-2023 Insurance Correspondence [id number]# 1.00TIFF Normal [facility] Consultation Noteon 05-20-19 Consultation Note [id number] .00TIFF Normal [facility] Ambulatory Visit Summaryon 0 05-18-2023 Ambulatory Visit Summary KASSIE DIALLO :1995 Visit Date:05/18/2023 Ambulatory Visit Instructions Your Diagnosis Anxiety Bipolar 1 disorder, mixed, moderate Depression Chest pain Premature atrial complexes Your Care Team Attending Physician - Will Mora Primary Care Physician - Will Mora This Is Your Medications List fluoxetine (fluoxetine 20 mg oral tablet) lorazepam (Ativan 0.5 mg Tab) sumatriptan (SUMAtriptan 50 mg Tab) Procedures Performed Betamethasone (02/01/2017), Betamethasone (01/31/2017), lacerated Kidney (2007), Right Hand Surgery. What to do next You Need to Complete the Following Echo Transthoracic Complete, 05/18/23, Routine, Order for future visit, Transport Mode: Ambulatory, Reason: Chest pain, Chest pain Normal [facility] Alfredo 04-25-2023 L Specimen: [id number] Received: 04/26/23-1245 Status: RODRIGO Owen Num: [id number] Spec Type: Surgical Subm Dr: Jesse Rojas Tissues: A Endometrium - Biopsy (EMBX) Procedures: HE/2, Gross/Micro L4 Age/ Patient Sex Location Account Attending Physician Kassie Diallo LABELL [id number] Jesse Crystal SPEC NUM: [id number] RECD: 04/26/23 STATUS: RODRIGO JEMAL NUM: [id number] MELBA: 04/25/23- DR: Jesse Rojas ENTERED: 04/26/23 [facility] DR: Jem,Lab SPEC TYPE: Surgical DEPT: RONALD CASIANO ORDERED: HE/2, Gross/Micro L4 ORDERED: HE/2, Gross/Micro L4 Pathological Diagnosis Endometrium, Curettage: Proliferative Endometrium with Stromal Breakdown. Clinical Information Menorrhagia with irregular cycles Gross Description Received in formalin labeled with the patient's name, date of and EM BX (per requisition is a 2.5 x 2.5 x 0.3 cm aggregate of translucent cerda soft tissue and mucoid material. Entirely submitted in one cassette labeled A1. CPT Codes 04089 -------- -------- Specimen: [id number] Received: 04/26/23 Status: RODRIGO Jemal Num: [id number] Spec Type: Surgical Subm Dr: Jesse Rojas Tissues: A Endometrium - Biopsy (EMBX) Procedures: HE/2, Gross/Micro L4 -------- Patient: Kassie Diallo [id number] (Continued) -------- Signed (signature on file) Noelle Oden MD 05/01/23 2139 Normal [facility] RAD - Ultrasound Reporton RAD - Ultrasound Report [id number] .00TIFF Normal [facility] Family Medicine Office/Clini c Noteon 04-19-2023 Family Medicine Office/Clinic Note HPI Staff Kassie is a 27 year old female presenting for Anxiety Follow up for Mental Status: NAVIN 02/23/23 JULIA 13 Medication adherence- Yes, takes medication as prescribed Medication refill needed: _ Suicidal thoughts-Not at this time Most recent JULIA: 15 Most recent PHQ: n/a Bipolar Pt does see Rica at [facility] for counseling Onset: 2 days ago left ear pain, denies any discharge. Pt states she did get a tooth pulled a week ago on that side. Urinary Incontinence: started 1 month ago 2 times while sleeping she woke up and had starting urinating was able to stop flow and go to bathroom. [address] she had the urge to urinate and wasn't able to hold it. Pt hasn't seen a urologist. History of Present Illness pt presents today with c/o incontinence, left ear pain, anxiety Review of Systems ROS - Provider Constitutional: no fever, no chills, no sweats, no fatigue Respiratory: no shortness of breath, no cough, no orthopnea, no wheezing. Cardiovascular: no chest pain, no palpitations, no edema. Neurologic: no headache, no dizziness, no numbness, no weakness. anxiety urinary incontinence Physical Exam Vitals & Measurements HR: 68(Peripheral) RR: 18 BP: 116/74 SpO2: 95% HT: 67 in HT: 170 cm WT: 74.0 kg WT: 162.8 lb BMI: 25.61 General: alert, no acute distress ENMT: oral mucosa moist, no pharyngeal erythema or exudate Cardiovascular: regular rate and rhythm, normal peripheral perfusion Respiratory: Lungs CTA, respirations non labored Extremities: no deformity, no trauma Neurological: oriented x 4, LOC appropriate for age, CN II-XII intact, motor strength equal & normal bilaterally, speech normal Assessment/Plan 1. Anxiety (F41.9: Anxiety disorder, unspecified) pt has not been on any of her psych meds and feels her anxiety is leading to other health issues. will restart Prozac 10mg. RTC 4 weeks. 2. Urinary incontinence (R32: Unspecified urinary incontinence) pt has had 3 episodes of losing control of bladder. discussed options including referral to GI. pt feels this may be related to her BH issues and would like to be put back on Prozac to see if that helps. 3. Ear pain, left (H92.02: Otalgia, left ear) pt had wisdom tooth pulled and 2 cavities filled on left side. ear canal and TM are WNL. encouraged tylenol or motrin for pain 4. Non-smoker (Z78.9: Other specified health status) continue not smoking Ordered: fluoxetine, 10 mg = 1 cap(s), Oral, Daily, # 30 cap(s), Refills(s) 0, Pharmacy: [facility]/pharmacy #[id number], 170, cm, 04/19/23 9:01:00 EST, Height/Length Dosing, 74, kg, 04/19/23 9:01:00 EST, Weight Dosing 5. BMI 27.0-27.9,adult (Z68.27: Body mass index [BMI] 27.0-27.9, adult) BMI education complete Ordered: fluoxetine, 10 mg = 1 cap(s), Oral, Daily, # 30 cap(s), Refills(s) 0, Pharmacy: [facility]/pharmacy #[id number], 170, cm, 04/19/23 9:01:00 EST, Height/Length Dosing, 74, kg, 04/19/23 9:01:00 EST, Weight Dosing Orders: sertraline, 25 mg = 1 tab(s), Oral, Daily, # 30 tab(s), Refills(s) 2, Pharmacy: [facility]/pharmacy #[id number], 170, cm, 12/16/22 14:03:00 EDT, Height/Length Dosing, 71.4, kg, 12/29/22 13:44:00 EDT, Weight Dosing Follow-up No qualifying data available Problem List/Past Medical History Ongoing Abdominal pain Abnormal EKG Amenorrhea, secondary Anxiety Bacterial conjunctivitis of right eye Bipolar 1 disorder, mixed, moderate Bipolar disorder Cellulitis, leg Cervical sprain Cervical strain Chronic abdominal pain Depression Ear pain, left Heart palpitations Left testicular pain Migraines Neck muscle strain Pelvic pain Peroneal neuritis PTSD (post-traumatic stress disorder) Right hand pain Right upper quadrant pain Screening for cardiovascular condition Screening for thyroid disorder Smoker Urinary incontinence Vulvovaginitis Historical Depression Laceration of kidney without open wound into abdominal cavity orthostatic fainting Pseudoseizures Suicidal ideation Procedure/Surgical History Betamethasone (02/01/2017), Betamethasone (01/31/2017), lacerated Kidney (2007), Right Hand Surgery. Medications Ativan 0.5 mg Tab, 0.25 mg= 0.5 tab(s), Oral, Once, PRN FLUoxetine 10 mg Cap, 10 mg= 1 cap(s), Oral, Daily SUMAtriptan 50 mg Tab, 50 mg= 1 tab(s), Oral, PRN Allergies clindamycin (Hives) Social History Alcohol - Denies Alcohol Use, 04/26/2019 Current, Beer, Wine, 1-2 times per month, Household alcohol concerns: No., 04/15/2020 Employment/School - Not employed or in school, 01/31/2017 Exercise - Occasional exercise, 06/15/2013 Home/Environment - No Risk, 02/07/2017 Nutrition/Health - Low Risk, 02/07/2017 Sexual - No Risk, 02/07/2017 Substance Abuse - Denies Substance Abuse, 04/26/2019 Tobacco - Denies Tobacco Use, 09/29/2022 Former vaping or e-cigarette use Smokeless Tobacco Use:. Started age 14.0 Years. Stopped age 21 Years. Ready to change: No. Household tobacco concerns: No. Y (more content not included)... Normal [facility] Comment on above: Result Comment: Elec tronically Signed By: Will Mora\.reina\Date and Time Signed: 04/19/23 11:27 EST Consent for Treatmenton 03-09 Consent for Treatment [id number] .00TIFF Normal [facility] Heart and Vascular Office/Cl inic Noteon 04-06-2023 Heart and Vascular Office/Clinic Note History of Present Illness Patient is a very pleasant 27-year-old nondiabetic female referred to our office to establish care for palpitations and abnormal EKG and anxiety. She has 2 small children with her today making her visit somewhat challenging. Patient states that she went to get her back adjusted at a chiropractor and ever since then has had chest pain symptoms radiating into her back. This was so bad she went to the emergency room was recently admitted to the hospital. In addition she complained of face numbness. She underwent a Holter monitor which was unremarkable except for rare PACs and PVCs. All of her chest pain was unremarkable on the Holter. She was recently restarted back on fluoxetine but this is causing her fatigue, tiredness, and decreased libido. Patient states she can walk on a treadmill. Is currently being worked up for gallbladder disease as well. Patient underwent pediatric echocardiogram on 07/12/2012 with the following results: (07/12/2012 14:41 EDT EC Pediatric Echo Transthoracic Complete) SUMMARY/CONCLUSION: Normal echocardiogram. [1] Patient underwent Holter monitor on 12/03/2022 with the following results: CONCLUSIONS: 1. Unremarkable 48-hour Holter monitor. The patient had rare premature atrial contractions and premature ventricular contractions noted. 2. No evidence of atrial fibrillation, supraventricular tachycardia, pauses or ventricular tachycardia. 3. The patient had several entries of substernal chest pain all of which corresponded to normal sinus rhythm. 4. Recommend clinical correlation or alternative mode of testing if clinically indicated. Ultrasound of gallbladder dated 12/16/2022 is as below: (12/16/2022 10:58 EDT US Gallbladder) IMPRESSION: NEGATIVE ULTRASOUND OF THE LIVER AND GALLBLADDER. [2] Patient underwent an event monitor on 03/19/2023 with the following results: CONCLUSIONS: Abnormal event monitor for elevated average heart rate as well as multiple symptomatic events of supraventricular ectopy. Clinical correlation suggested. [1] Patient is now here in follow-up to go over her testing. Testing results given to the patient. Patient claims she had a tilt table test done at an outside facility although I do not have those test results.. His echo was denied. Patient did not start taking her diltiazem as she has a history of anxiety and wanted her anxiety medicines adjusted first before taking and any else. Patient actually took herself off of her antianxiety medications as it was making her tired. She is about to try Wellbutrin. Her symptoms are predominantly at night when she goes to bed and she feels her heart racing on occasion. In our office today her blood pressure was 118/68 and pulse is 92 and regular. Physical exam is as below. Lipids dated 11/02/2022 show an HDL of 36 and an LDL of 103. EKG dated 12/16/2022 shows normal sinus rhythm, normal axis, normal intervals, incomplete right bundle branch block, no previous myocardial infarction noted. TSH is normal. [1] Review of Systems Constitutional: no fever, no chills, no weakness, no fatigue Respiratory: no shortness of breath, no cough, no orthopnea, no wheezing Cardiovascular: no chest pain, no palpitations, no edema Neuro: no dizziness no light headed no syncope Additional ROS info: Except as noted in the above Review of Systems and in the History of Present Illness all other systems have been reviewed and are negative or noncontributory. Physical Exam General: alert, no acute distress Neck: Supple, noJVD nocarotid bruit Cardiovascular: regular rate and rhythm, no murmur normal peripheral perfusion Respiratory: Lungs CTA, respirations non labored Extremities: no edema Neurological: oriented x 4, LOC appropriate for age, sensation equal & normal bilaterally, speech normal Skin: Warm, dry, intact- no rash or concerning lesions Assessment/Plan 1. Palpitations: The patient's palpitations appear to be benign but nonetheless irritating and symptomatic. I explained to her the relationship between extra heartbeats and palpitations and gave her some advice about controlling them. I have encouraged the patient to begin exercising to assist with stress as well as palpitations. I advised the patient to eat frequent small meals, keep yourself well-hydrated and avoid caffeine and alcohol. Patient appears to be under significant amount of stress taking care of her children, as well as lack of sleep. Patient does not wish to pursue Cardizem at this time as she wants to try her Wellbutrin first. I believe this is reasonable. 2. Return to office in 6 months. Follow-up No qualifying data available Problem List/Past Medical History Ongoing Abdominal pain Abnormal EKG Amenorrhea, secondary Anxiety Bacterial conjunctivitis of right eye Bipolar 1 disorder, mixed, moderate Bipolar disorder Cellulitis, leg Cervical sprain Cervical strain Chronic abdominal pain Depression Heart palpitations Migraines Neck muscle strain P (more content not included)... Normal [facility] Comment on above: Result Comment: Elec tronically Signed By: MARK GAMBLE, Huang Wall\.br\Date and Time Signed: 04/06/23 13:17 EST Physician Orderon 04-06-2023 Physician Order [id number]# 1.00TIFF Normal [facility] Ambulatory Visit Summaryon 0 04-04-2023 Ambulatory Visit Summary KASSIE DIALLO :1995 Visit Date:04/04/2023 Ambulatory Visit Instructions Your Diagnosis Muscle strain of thigh Your Care Team Attending Physician - William Badillo DO Primary Care Physician - Will Mora This Is Your Medications List cyclobenzaprine (cyclobenzaprine 5 mg Tab) meloxicam (meloxicam 7.5 mg Tab) Contact prescribing physician if questions or concerns lorazepam (Ativan 0.5 mg Tab) sertraline (sertraline 25 mg Tab) Procedures Performed Betamethasone (02/01/2017), Betamethasone (01/31/2017), lacerated Kidney (2007), Right Hand Surgery. Discharge Vitals Temperature (Temporal Artery) 36.8 ?C Heart Rate (Peripheral) 67 Respiratory Rate 16 Blood Pressure 122/74 Height 170 cm Height 67 in Weight 74.5 kg Weight 163.9 lb BMI 25.78 What to do next Scheduled Follow-Up Appointments Tuesday 1:00 PM EST With: MARK GAMBLE, Huang Wall Where: [facility] Medications What How Much When Why Instructions New cyclobenzaprine (cyclobenzaprine 5 mg Tab) 1 Tablets By Mouth At bedtime Muscle strain of thigh Duration: 7 Days Pickup at [facility]/pharmacy #[id number] New meloxicam (meloxicam 7.5 mg Tab) 1 Tablets By Mouth Every day Muscle strain of thigh [id number] Unchanged lorazepam (Ativan 0.5 mg Tab) 0.5 Tablets By Mouth Once as needed for as needed for anxiety Anxiety BMI 24.0-24.9, adult Nonsmoker Contact prescribing physician if questions or concerns Unchanged sertraline (sertraline 25 mg Tab) 1 Tablets By Mouth Every day Contact prescribing physician if questions or concerns [facility] Information [id number]: [address] [place] [id number] [phone] Allergies clindamycin (Hives) Problems Ongoing - Any problem that you are currently receiving treatment for. Abdominal pain Abnormal EKG Amenorrhea, secondary Anxiety Bacterial conjunctivitis of right eye Bipolar 1 disorder, mixed, moderate Bipolar disorder Cellulitis, leg Cervical sprain Cervical strain Chronic abdominal pain Depression Heart palpitations Migraines Neck muscle strain Pelvic pain Peroneal neuritis PTSD (post-traumatic stress disorder) Right hand pain Right upper quadrant pain Screening for cardiovascular condition Screening for thyroid disorder Smoker Vulvovaginitis Historical - Any problem that you are no longer receiving treatment for. Depression Laceration of kidney without open wound into abdominal cavity orthostatic fainting Pseudoseizures Suicidal ideation Patient Survey You may receive a survey via text or e-mail asking about your office visit. Please share your experience with us by completing your survey. We appreciate your feedback and thank you for choosing us for your care. Normal [facility] Family Medicine Office/Clini c Noteon 04-04-2023 Family Medicine Office/Clinic Note Chief Complaint cramping on back of thigh HPI Staff 27 year old female presents with leg pain. Pt states she is getting some cramping/pulling on the back of her thighs. Symptoms started yesterday History of Present Illness HPI staff confirmed did a lot of driving on Tuesday and Tuesday feeling tight it's likely from driving this hasn't happened in a while Review of Systems PHQ Score Initial Depression Screen Score: 0 SCORE Physical Exam Vitals & Measurements T: 36.8 ?C(Temporal Artery) HR: 67(Peripheral) RR: 16 BP: 122/74 SpO2: 97% HT: 67 in HT: 170 cm WT: 74.5 kg WT: 163.9 lb BMI: 25.78 Constitutional: Vital signs reviewed; KASSIE DIALLO is well nourished, no acute distress Head: Atraumatic, normocephalic Eye: EOMI, normal conjunctiva ENT: Moist oral mucosa, external inspection of ears and nose is unremarkable Neck: Trachea is midline, no tenderness Lungs: Clear to auscultation, non-labored respiration - expansion is symmetric Heart: Normal rate and rhythm, normal peripheral perfusion Lymph: Deferred Abd: Deferred : Deferred MSK: Normal gait and station lumbar AROM is WNL negative straight leg bilat Skin: Warm, dry Neurologic: Awake, alert and oriented, speech is normal, no focal deficits, CN II-XII grossly intact Psychiatric: Cooperative, appropriate mood and affect, judgement is appropriate Assessment/Plan 1. Muscle strain of thigh (S76.919A: Strain of unspecified muscles, fascia and tendons at thigh level, unspecified thigh, initial encounter) Impression Acute on chronic Sub-optimal control of symptoms I had a long discussion with the patient regarding the etiology of this back pain This appears to be a combination of weak abdominals, poor posture, with sub-optimal mechanics does not meet wells critera to check D Dimer no obvious signs of DVT Plan: Based on my assessment today, I do NOT believe the patient needs further radiographic testing at this time Begin meloxicam 7.5mg daily; see instructions re: medication Begin cyclobenzaprine 5mg qHS for spasm We have discussed the use of physical therapy and have deferred this for now Patient to follow-up for manipulation in 4-5 weeks or PRN Ordered: cyclobenzaprine, 5 mg = 1 tab(s), Oral, Bedtime, X 7 day(s), # 7 tab(s), Refills(s) 0, Pharmacy: [facility]/pharmacy #[id number], 170, cm, 04/04/23 12:02:00 EST, Height/Length Dosing, 74.5, kg, 04/04/23 12:02:00 EST, Weight Dosing meloxicam, 7.5 mg = 1 tab(s), Oral, Daily, # 30 tab(s), Refills(s) 0, Pharmacy: [facility]/pharmacy #[id number], 170, cm, 04/04/23 12:02:00 EST, Height/Length Dosing, 74.5, kg, 04/04/23 12:02:00 EST, Weight Dosing Follow-up No qualifying data available Problem List/Past Medical History Ongoing Abdominal pain Abnormal EKG Amenorrhea, secondary Anxiety Bacterial conjunctivitis of right eye Bipolar 1 disorder, mixed, moderate Bipolar disorder Cellulitis, leg Cervical sprain Cervical strain Chronic abdominal pain Depression Heart palpitations Migraines Neck muscle strain Pelvic pain Peroneal neuritis PTSD (post-traumatic stress disorder) Right hand pain Right upper quadrant pain Screening for cardiovascular condition Screening for thyroid disorder Smoker Vulvovaginitis Historical Depression Laceration of kidney without open wound into abdominal cavity orthostatic fainting Pseudoseizures Suicidal ideation Procedure/Surgical History Betamethasone (02/01/2017), Betamethasone (01/31/2017), lacerated Kidney (2007), Right Hand Surgery. Medications Ativan 0.5 mg Tab, 0.25 mg= 0.5 tab(s), Oral, Once, PRN cyclobenzaprine 5 mg Tab, 5 mg= 1 tab(s), Oral, Bedtime meloxicam 7.5 mg Tab, 7.5 mg= 1 tab(s), Oral, Daily sertraline 25 mg Tab, 25 mg= 1 tab(s), Oral, Daily, 2 refills Allergies clindamycin (Hives) Social History Alcohol - Denies Alcohol Use, 04/26/2019 Current, Beer, Wine, 1-2 times per month, Household alcohol concerns: No., 04/15/2020 Employment/School - Not employed or in school, 01/31/2017 Exercise - Occasional exercise, 06/15/2013 Home/Environment - No Risk, 02/07/2017 Nutrition/Health - Low Risk, 02/07/2017 Sexual - No Risk, 02/07/2017 Substance Abuse - Denies Substance Abuse, 04/26/2019 Tobacco - Denies Tobacco Use, 09/29/2022 Former vaping or e-cigarette use Smokeless Tobacco Use:. Started age 14.0 Years. Stopped age 21 Years. Ready to change: No. Household tobacco concerns: No. Yes, 02/23/2023 Family History Asthma: Mother and Sister. Depression: Father. Migraine: Father. Immunizations Vaccine Date Status Comments influenza virus vaccine, inactivated - Not Given Patient Refuses influenza virus vaccine, inactivated - Not Given Temporary contraindication - reschedule influenza virus vaccine, inactivated - Not Given Temporary contraindication - reschedule influenza virus vaccine, inactivated - Not Given Patient Refuses influenza virus v (more content not included)... Normal [facility] Comment on above: Result Comment: Elec tronically Signed By: William Badillo DO.reina\Date and Time Signed: 04/04/23 12:56 EST Outside Recordson 04-01-2023 Outside Records [id number] .00TIFF Normal [facility] Lab Reportson 03-31-2023 Lab Reports [id number]. 00TIFF Normal [facility] CA tilt table teston 024 CA tilt table test [facility] [place] [address] Cardiology Report Signed Patient: Kassie Diallo MR#: [id number] : 1995 Acct:[id number] Age/Sex: 27 / F ADM Date: 03/30/23 Loc: Room: Type: [facility] Attending Dr: Alize Doty MD Copies to: [...] continue her long-term followup with her primary child day care teacher. Transcribed By: BRANDON 03/30/23 5740 Dictated By: Urvashi Medina MD 03/30/23 1226 Signed By: 03/31/23 1010 Normal [facility] HCG ( test) IA.laura d Ql (U)Ordered By: Alize Doty on 03-30-2023 HCG ( test) Ql (U) Negative [facility] HCG,Urineon 03-30-2023 Beta HCG ( test) Ql (U) Negative [facility] Comment on above: Result Comment: PERF ORMED BY: [place] [address] PATHOLOGIST [employer] OPERATOR EMILIE ROBISON M.D. Performed By: #### U HCG #### [address] Consultation Noteon 03-28-19 Consultation Note [id number]#1. 00TIFF Normal [facility] Event Monitoron 03-22-2023 Event Monitor [id number]# 1.00TIFF Normal [facility] ECG 12 lead (Clinic Performe d)on 03-21-2023 [facility] Work Phone: [facility] Work Phone: Auto Diffon 03-16-2023 Basophils/100 WBC (Bld) 0.9 % Normal 0.0-2.0 [facility] Comment on above: Order Comment: Order Added by Discern Expert. Performed By: #### 2 616743, 28186696, 7397361, 9941256, 3583587, 3103914, 93276955 #### [facility] [address] [place] [address] Basophils/Leukocytes Auto (Bld) [Pure # fraction] 0.1 E9/L Normal 0.0-0.2 [facility] Comment on above: Order Comment: Order Added by Discern Expert. Performed By: #### 2 458208, 09278460, 5063599, 3527675, 0455632, 6522592, 73553136 #### [facility] [address] [place] [address] 04621 Eosinophils/100 WBC (Bld) 3.7 % Normal 0.0-8.0 [facility] Comment on above: Order Comment: Order Added by Discern Expert. Performed By: #### 2 016231, 40311352, 0003611, 4406504, 8308910, 1171797, 00021991 #### [facility] [address] [place] [address] Eosinophils/Leukocytes Auto (Bld) [Pure # fraction] 0.2 E9/L Normal 0.0-0.5 [facility] Comment on above: Order Comment: Order Added by Discern Expert. Performed By: #### 2 356527, 82819674, 0088254, 7491936, 0160792, 9224501, 54616948 #### [facility] [address] [place] [address] 08701 Lymphocytes/100 WBC (Bld) 30.5 % Normal 14.0-50.0 [facility] Comment on above: Order Comment: Order Added by Discern Expert. Performed By: #### 2 445729, 74035928, 3607944, 0792576, 3705164, 2885384, 18492428 #### [facility] [address] [place] [address] 57491 Lymphocytes/Leukocytes Auto (Bld) [Pure # fraction] 1.9 E9/L Normal 1.0-4.0 [facility] Comment on above: Order Comment: Order Added by Raúl Expert. Performed By: #### 2 892804, 08947675, 0489253, 4897628, 6310400, 6270723, 44511213 #### [facility] [address] [place] [address] 76709 Monocytes/100 WBC (Bld) 8.4 % Normal 4.0-14.0 [facility] Comment on above: Order Comment: Order Added by Discern Expert. Performed By: #### 2 172977, 10595683, 1130081, 4188726, 8940452, 5743721, 31726096 #### [facility] [address] [place] [address] 9[address]59 Monocytes/Leukocytes Auto (Bld) [Pure # fraction] 0.5 E9/L Normal 0.2-1.0 [facility] Comment on above: Order Comment: Order Added by Raúl Expert. Performed By: #### 2 707305, 63549161, 2059090, 1357355, 9023962, 6674413, 50313826 #### [facility] [address] [place] [address] 01906 Neutrophils/100 WBC (Bld) 56.5 % Normal 36.0-75.0 [facility] Comment on above: Order Comment: Order Added by Raúl Expert. Performed By: #### 2 936478, 38969765, 3941552, 4389463, 2064226, 4810249, 02419576 #### [facility] [address] [place] [address] 53761 Neutrophils/Leukocytes Auto (Bld) [Pure # fraction] 3.4 E9/L Normal 2.0-7.5 [facility] Comment on above: Order Comment: Order Added by Raúl Expert. Performed By: #### 2 944700, 55626649, 8097294, 5743229, 4239174, 1487452, 37137431 #### [facility] [address] [place] [address] 378[address] BMPon 03-16-2023 Anion gap [Moles/Vol] 13 mmol/L Normal 6-16 [facility] Comment on above: Performed By: #### 2 557490, 07805320, 6047751, 0230989, 6949869, 7360592, 98938605 #### [facility] [address] [place] [address] BUN/Creat Ratio 19 No Units Normal 10-20 [facility] Comment on above: Performed By: #### 2 648402, 98369920, 3207185, 5331634, 3447863, 9361424, 35484749 #### [facility] [address] [place] [address] Calcium [Mass/Vol] 8.9 mg/dL Normal 8.9-11.1 [facility] Comment on above: Performed By: #### 2 231680, 31660130, 4262874, 9335390, 0180156, 7791580, 90958892 #### [facility] [address] [place] [address] Chloride [Moles/Vol] 111 mmol/L Normal 101-111 [facility] Comment on above: Performed By: #### 2 871792, 46884783, 7388816, 8682171, 9160402, 5798595, 63799594 #### [facility] [address] [place] [address] CO2 [Moles/Vol] 21 mmol/L Normal 21-31 [facility] Comment on above: Performed By: #### 2 038242, 49308407, 9671739, 7021460, 3338381, 9904175, 19130837 #### [facility] [address] [place] [address] Creatinine [Mass/Vol] 0.7 mg/dL Normal 0.5-1.3 [facility] Comment on above: Performed By: #### 2 618798, 36156453, 7165050, 7736506, 8998254, 3822969, 46926387 #### [facility] [address] [place] [address] Glucose [Mass/Vol] 94 mg/dL Normal 55-199 [facility] Comment on above: Performed By: #### 2 192160, 99883702, 8817968, 6977002, 1105611, 5120923, 39431158 #### [facility] [address] [place] [address] Potassium [Moles/Vol] 3.9 mmol/L Normal 3.5-5.3 [facility] Comment on above: Performed By: #### 2 410681, 62967790, 2393892, 2321224, 8953813, 7729991, 82414212 #### [facility] [address] [place] [address] Sodium [Moles/Vol] 141 mmol/L Normal 135-145 [facility] Comment on above: Performed By: #### 2 126301, 41247854, 0326818, 2954414, 9219621, 3264762, 04418186 #### [facility] [address] [place] [address] Urea nitrogen [Mass/Vol] 13 mg/dL Normal 5-21 [facility] Comment on above: Performed By: #### 2 407383, 48487000, 7171211, 1442902, 2419261, 4831824, 01723826 #### [facility] [address] [place] [address] BhCG Quanton 03-16-2023 Beta hCG Qnt <1 Normal 1-3 [facility] Comment on above: Result Comment: 'F N ON < 1 - 3' ' 0.2 - 1 WEEK = 5 TO 50' ' 1 - 2 WEEKS = 50 - 500' ' 2 - 3 WEEKS = 100 - 5000' ' 3 - 4 WEEKS = 500 - 44371' ' 4 - 5 WEEKS = 1000 - 86980' ' 5 - 6 WEEKS = 96875 - 610887' ' 6 - 8 WEEKS = 39606 - 698412' ' 8 - 12 WEEKS = 83140 - 895740' Performed By: #### 2 124011, 61791036, 9275644, 8070867, 7625102, 2167150, 00095429 #### [facility] [address] [place] [address] 43212 CBC w/ Auto Diffon Erythrocyte distribution width (RBC) [Ratio] 13.0 % Normal 10.9-14.2 [facility] Comment on above: Performed By: #### 2 160048, 05469961, 7835592, 6230329, 2433516, 6235665, 62032693 #### [facility] [address] [place] [address] 19174 Hematocrit (Bld) [Volume fraction] 37.3 % Normal 34.0-46.0 [facility] Comment on above: Performed By: #### 2 778311, 95490392, 0443378, 5541189, 6610074, 1045420, 77204822 #### [facility] [address] [place] [address] 49833 Hemoglobin (Bld) [Mass/Vol] 12.5 g/dL Normal 12.0-16.0 [facility] Comment on above: Performed By: #### 2 037303, 97684648, 3358187, 5869216, 2008451, 5558197, 25496886 #### [facility] [address] [place] [address] 70658 MCH (RBC) [Entitic mass] 28.7 pg Normal 27.0-34.0 [facility] Comment on above: Performed By: #### 2 956350, 74112858, 3563667, 1301840, 5262397, 2822637, 21228450 #### [facility] [address] [place] [address] 01174 MCHC (RBC) [Mass/Vol] 33.5 g/dL Normal 31.4-36.0 [facility] Comment on above: Performed By: #### 2 270022, 90201483, 8106717, 6331512, 4299847, 1674955, 22318416 #### [facility] [address] [place] [address] 00372 MCV (RBC) [Entitic vol] 85.8 fL Normal 80.0-100.0 [facility] Comment on above: Performed By: #### 2 333886, 88230648, 8649648, 0281475, 5941092, 8454864, 65614909 #### [facility] [address] [place] [address] 69260 Platelet mean volume (Bld) [Entitic vol] 8.2 fL Normal 6.4-10.8 [facility] Comment on above: Performed By: #### 2 488834, 43842198, 4171099, 3609594, 5600545, 0002125, 40349745 #### [facility] [address] [place] [address] 93656 Platelets (Bld) [#/Vol] 222.0 E9/L Normal 150.0-500.0 [facility] Comment on above: Performed By: #### 2 428562, 84975254, 3421389, 7959671, 5330528, 9894427, 07535092 #### [facility] [address] [place] [address] 22878 RBC (Bld) [#/Vol] 4.3 E12/L Normal 4.3-5.9 [facility] Comment on above: Performed By: #### 2 199466, 27475006, 5173600, 4908254, 2678054, 9991910, 84072581 #### [facility] [address] [place] [address] 68991 WBC corrected for nucl RBC Auto (Bld) [#/Vol] 6.1 E9/L Normal 4.0-11.0 [facility] Comment on above: Performed By: #### 2 842898, 80626181, 4137648, 0152499, 8108242, 1167491, 20376231 #### [facility] [address] [place] [address] CHEMISTRYOrdered By: SYSTEM SYSTEM on 03-16-2023 Albumin [...] 3 - 4 WEEKS = 500 - 04175' ' 4 - 5 WEEKS = 1000 - 49334' ' 5 - 6 WEEKS = 99921 - 520995' ' 6 - 8 WEEKS = 50664 - 191839' ' 8 - 12 WEEKS = 72679 - 683440' Bili Direct 0.1 mg/dL Normal 0.0 - [...] 37.3 s High 25.1 - 36.5 second(s) [facility] Auto Coag Comment on above: Interpretive Data: P arameter 15 days - 4 weeks 1 - [...] the same coagulation reagent and instrumentation as [facility]. Currently there are no coagulation studies available worldwide for children to 14 days, and no normal ranges. Heparin therapeutic range (represented by Anti-Factor Xa activity of 0.2 - 0.4 U/mL) corresponds to PTT of 56.6 - 109.0 sec. Fibrin D-dimer FEU (PPP) [Mass/Vol] 230 ng/mL FEU Normal 215 - 500 ng/mL FEU [facility] Auto Coag Comment on above: Interpretive Data: [...] [Relative time] 1.1 {INR} Invalid Interpretation Code [facility] Auto Coag Comment on above: Interpretive Data: I NR results are specifically intended to assess patients stabilized on long-term Anticoagulation therapy suggested INR s Less Intensive Anticoagulation 2.0 3.0 Conventional Range 3.0 4.5 PT Coag (PPP) [Time] 12.6 s High 9.4 - 1 2.5 second(s) [facility] Auto Coag Comment on above: Interpretive Data: [...] the same coagulation reagent and instrumentation as [facility]. Currently there are no coagulation studies available worldwide for children to 14 days, and no normal ranges. Consent for Treatmenton 03-07 Consent for Treatment [id number] .00TIFF Normal [facility] D-Dimeron 03-16-2023 Fibrin D-dimer FEU (PPP) [Mass/Vol] 230 [id number] Normal 215-500 [facility] Comment on above: Result Comment: This assay [...] infections, pneumonia, severe skin infections Liver cirrhosis Performed By: #### 2 028697, 20162974, 6768311, 4487835, 9134259, 0556052, 99508468 #### [facility] [address] [place] [address] 7[address] ED Clinical Summaryon 2023 ED Clinical Summary [address] [address] ED Clinical Summary Person Information Name: KASSIE DIALLO/[facility] Age: 27 Years : 1995 Sex: Female Language: [place] PCP: Will Mora Marital Status: Phone: [phone] Visit Id: Visit Reason: Chest pain; CHEST PAINS LEFT ARM PAIN Speciality: Acuity: 3 Enc Type: Emergency Med Service: Emergency Arrival: 03/16/2023 09:29:52 Discharge: 03/16/2023 13:38:34 LOS: 000 04:09 Checkin: 03/16/2023 09:29:52 Checkout: 03/16/2023 13:38:34 Dispo Type: Home (Routine DC) EVENTS: Event Name Event Status Request Date/Time Start Date/Time Complete Date/Time Arrive Complete 03/16/2023 09:29:52 03/16/2023 09:29:52 03/16/2023 09:29:52 Document Home Meds Request 03/16/2023 09:29:52 Triage Complete 03/16/2023 09:29:52 03/16/2023 09:37:51 03/16/2023 09:37:51 Bed Assign Complete 03/16/2023 09:33:32 03/16/2023 09:33:32 03/16/2023 09:33:32 Dr Exam Complete 03/16/2023 09:33:32 03/16/2023 09:40:49 03/16/2023 09:40:49 RN Exam Complete 03/16/2023 09:33:32 03/16/2023 10:21:17 03/16/2023 10:21:17 EKG Complete 03/16/2023 09:36:55 03/16/2023 09:43:30 Registration Complete 03/16/2023 09:40:49 03/16/2023 10:03:57 03/16/2023 10:03:57 Pending Labs Complete 03/16/2023 09:43:25 03/16/2023 13:12:59 Lab Complete 03/16/2023 09:43:25 03/16/2023 13:12:59 Patient Care Request 03/16/2023 09:43:25 RT Request 03/16/2023 09:43:25 X-Ray Complete 03/16/2023 09:43:25 03/16/2023 10:04:42 03/16/2023 10:17:07 Pending Labs Complete 03/16/2023 09:58:55 03/16/2023 09:58:55 03/16/2023 11:25:29 Lab Complete 03/16/2023 09:58:55 03/16/2023 09:58:55 03/16/2023 11:25:29 Pending Labs Complete 03/16/2023 09:59:18 03/16/2023 09:59:18 03/16/2023 09:59:18 Reg Complete Request 03/16/2023 10:03:57 Reg Bed Request Complete 03/16/2023 10:03:57 03/16/2023 10:03:57 03/16/2023 10:03:57 Pending Labs Complete 03/16/2023 10:05:29 03/16/2023 10:05:29 03/16/2023 10:13:01 Pending Labs Complete 03/16/2023 10:05:46 03/16/2023 10:05:46 03/16/2023 10:13:14 Pending Labs Complete 03/16/2023 10:13:56 03/16/2023 10:13:56 03/16/2023 10:14:05 Lab Complete 03/16/2023 10:13:56 03/16/2023 10:13:56 03/16/2023 10:14:05 Pending Labs Complete 03/16/2023 10:14:30 03/16/2023 10:14:30 03/16/2023 13:13:00 Lab Complete 03/16/2023 10:14:30 03/16/2023 10:14:30 03/16/2023 13:13:00 Wet Read Request 03/16/2023 10:17:07 Discharge Complete 03/16/2023 13:23:46 03/16/2023 13:38:42 03/16/2023 13:38:42 Transfer Complete 03/16/2023 13:38:42 03/16/2023 13:38:42 03/16/2023 13:38:42 ADDRESS: [address] [place] [phone] [facility] DOC NOTES: MEDICAL INFORMATION: Prescriptions Given: Medications to Continue with No Changes Other Medications lorazepam (Ativan 0.5 mg Tab) 0.5 Tablets By Mouth Once as needed as needed for anxiety. Refills: 0. sertraline (sertraline 25 mg Tab) 1 Tablets By Mouth every day. Refills: 2. PATIENT EDUCATION INFORMATION: Instructions: Nonspecific Chest Pain, Adult Follow up: With: Address: When: [place] [address] [phone] Business (1) In 3 days 03/19/2023 Comments: Keep your upcoming appointment with Dr. Flores With: Address: When: Will Hawthorne In 3 days 03/19/2023 Comments: Call the office of your primary care doctor [...] if you develop any new or worsening symptoms. Seek immediate medical attention if you develop: worsening chest pain, new chest pain, nausea, vomiting, weakness, numbness, tingling, excessive sweating, shortness of breath, difficulty breathing, loss of motion in your arms or legs, or any new or worsening symptoms. DIAGNOSIS: Chest pain Normal [facility] ED Note-Physicianon 03-16-19 ED Note-Physician Basic Information Time Seen: Twin CRUM Quintin SchmidtJay 03/16/2023 09:40 Chief Complaint pt states had 30 min episode of chest pressure that has now subsided. scheduled for holter monitor by child day care teacher that states is awaiting for insurance to approve History of Present Illness 27-year-old female to the emergency department chief complaint of chest pain. Patient reports that early this morning when she woke up she began to experience some chest pressure. It lasted approximately 30 minutes. Resolved prior to arrival. She has no history of cardiac disease. She has never had pain like this before. She sees cardiology for palpitations for which she is currently being worked up. No history of DVT or PE. She is not on any control or hormones. No recent surgery or procedures. Review of Systems A 10 point review of systems is negative except as noted above Medical and Surgical History: Reviewed and noted Social history: Lives at home Tobacco: Denies Physical Exam Vitals & Measurements T: 36.6 ?C(Oral) HR: 70(Monitored) RR: 20 BP: 116/67 SpO2: 100% HT: 170 cm WT: 72 kg BMI: 24.91 VITALS: I have reviewed the triage vital signs. GENERAL: Well developed, well appearing adult in no acute distress. NEURO: Alert and oriented. Moves all extremities. Face is symmetric and expressive. EYES: PERRL. No scleral icterus or conjunctival injection. No discharge. HENT: Normocephalic, atraumatic. Hearing is grossly intact. Nares grossly patent and without discharge. Mucous membranes moist. NECK: No JVD. Patient moves neck without restriction. CARDIO: Rhythm regular. Normal rate. No murmur, rub, or gallop. Pulses equal bilaterally in the upper and lower extremity. No lower extremity edema. PULM: Lungs clear to auscultation in all friedman. No wheezes, rales, or rhonchi. No conversational dyspnea. No splinting, stridor, or accessory muscle use. GI/: Abdomen is soft and non-tender. Normoactive bowel sounds. EXTREMITIES: Symmetric muscle bulk. No joint swelling. No clubbing, cyanosis, or deformity. SKIN: Warm and dry. Normal turgor. No rash or lesions appreciated. PSYCH: Anxious Procedure Heart Score for Major Cardiac Event History: Example factors for history - pattern of chest pain, onset, duration, relation with exercise, stress or cold, localization, concominant symptoms. reaction to sublingual nitrates, [] Highly suspicious +2 [] Moderately suspicious +1 [x] Slightly suspicious 0 EKG: [] Significant ST-Depression +2 [] Non specific repolarization disturbance +1 [x] Normal 0 Age: [] >= 65 +2 [] 45-65 + 1 [x] <45 0 Risk Factors: (HLD, HTN, DM, Cigarette Smoking, Pos Family Hx, Obesity) [] >3 risk factors or hx of atheroslerotic disease + 2 [x] 1-2 risk factors + 1 [] No risk factors known 0 Troponin: [] >= 3X normal + 2 [] 1-3X normal + 1 [x] <= Normal 0 [x] 0-3 Points 0.9 - 1.7% risk of major adverse cardiac event in 6 weeks [] 4-6 Points 12-16.6% risk of major adverse cardiac event in 6 weeks [] 7-10 Points 50-65% risk of major adverse cardiac event in 6 weeks [] 0-3 Points with 2 sets of negative cardiac markers <1% risk of major adverse cardiac event in 30 days. PERC = 0 The patient has low probability for PE. She is less than 50 years old, heart rate less than 100 beats per minute, oxygen saturation greater than 95 percent. No prior history of DVT or PE. No recent trauma or surgery. No hemoptysis. No estrogen use. No unilateral leg swelling. Medical Decision Making 27-year-old female to the emergency department chief complaint of chest pain episode. Vital stable, the patient is afebrile. Cardiac workup is initiated. Patient reports she has a lot of health related anxiety . Discussed workup here today. She is concerned about blood clots in her lungs. I discussed that she is low risk by PERC and this effectively rules out VTE. We also discussed D-dimer and CT scan. She does not feel confident with decision rules alone. She would like D-dimer testing which I believe is reasonable. EKG without evidence of ischemia. Chest x-ray without acute findings. Lab work reviewed noted. There are no major abnormalities. Her D-dimer is low, effectively ruling out VTE. Troponin is low. Heart score low risk. With symptom onset greater than 3 hours prior to arrival and very low troponin this is effective rule out of ACS. Plan discussed with patient. She is reassured. She will follow-up with cardiology. Patient was discharged home. Assessment/Plan Chest pain (R07.9: Chest pain, unspecified) Orders: Add on Test Add on Test Automated Diff Basic Metabolic Panel Beta hCG Quantitative CBC w/ Auto Diff D-Dimer ED Cardiac Monitoring eGFR Extra SST Tube Hepatic Function Panel Oxygen Saturation Oxygen Therapy PT & PTT Bipin (more content not included)... Normal [facility] Comment on above: Result Comment: Elec tronically Signed By: Quintin Murcia DO\.reina\Date and Time Signed: 03/16/23 17:41 EST ED Patient Education Noteon 03-16-2023 ED Patient Education Note Pulmonary Medicine Nonspecific Chest Pain, Adult Chest pain is [...] Some life-threatening causes of chest pain include: ? Heart attack. ? A tear in the body's main blood vessel (aortic dissection). ? Inflammation around your heart (pericarditis). ? A problem in the lungs, such as a blood clot (pulmonary embolism) or a collapsed lung (pneumothorax). Some non life-threatening causes of chest pain include: ? Heartburn. ? Anxiety or stress. ? Damage to the bones, muscles, and cartilage that make up your chest wall. ? Pneumonia or bronchitis. ? Shingles infection (varicella-zoster virus). Your chest pain may come and go. It may also be constant. Your health care provider will do tests and other studies to find the cause of your pain. Treatment will depend on the cause of your chest pain. Follow these instructions at home: Medicines ? Take kfnu-ngx-jkgurxw and prescription medicines only as told by your health care provider. ? If you were prescribed an antibiotic medicine, take it as told by your health care provider. Do not stop taking the antibiotic even if you start to feel better. Activity ? Avoid any activities that cause chest pain. ? Do not lift anything that is heavier than 10 lb (4.5 kg), or the limit that you are told, until your health care provider says that it is safe. ? Rest as directed by your health care provider. ? Return to your normal activities only as told by your health care provider. Ask your health care provider what activities are safe for you. Lifestyle ? Do not use any products that contain nicotine or tobacco, such as cigarettes, e-cigarettes, and chewing tobacco. If you need help quitting, ask your health care provider. ? Do not drink alcohol. ? Make healthy lifestyle changes as recommended. These may include: ? Getting regular exercise. Ask your health care provider to suggest some exercises that are safe for you. ? Eating a heart-healthy diet. This includes plenty of fresh fruits and vegetables, whole grains, low-fat (lean) protein, and low-fat dairy products. A dietitian can help you find healthy eating options. ? Maintaining a healthy weight. ? Managing any other health conditions you may have, such as high blood pressure (hypertension) or diabetes. ? Reducing stress, such as with yoga or relaxation techniques. General instructions ? Pay attention to any changes in your symptoms. ? It is up to you to get the results of any tests that were done. Ask your health care provider, or the department that is doing the tests, when your results will be ready. ? Keep all follow-up visits as told by your health care provider. This is important. ? You may be asked to go for further testing if your chest pain does not go away. Contact a health care provider if: ? Your chest pain does not go away. ? You feel depressed. ? You have a fever. ? You notice changes in your symptoms or develop new symptoms. Get help right away if: ? Your chest pain gets worse. ? You have a cough that gets worse, or you cough up blood. ? You have severe pain in your abdomen. ? You faint. ? You have sudden, unexplained chest discomfort. ? You have sudden, unexplained discomfort in your arms, back, neck, or jaw. ? You have shortness of breath at any time. ? You suddenly start to sweat, or your skin gets clammy. ? You feel nausea or you vomit. ? You suddenly feel lightheaded or dizzy. ? You have severe weakness, or unexplained weakness or fatigue. ? Your heart begins to beat quickly, or it feels like it is skipping beats. These symptoms may represent a serious problem that is an emergency. Do not wait to see if the symptoms will go away. Get medical help right away. Call your local emergency services (911 in the [place] Do not drive yourself to the hospital. Summary ? Chest pain can be caused by a condition that is serious and requires urgent treatment. It may also be caused by something that is not life-threatening. ? Your health care provider may do lab tests and other studies to find the cause of your pain. ? Follow your health care provider's instructions on taking medicines, making lifestyle changes, and getting emergency treatment if symptoms become worse. ? Keep all follow-up visits as told by your (more content not included)... Normal [facility] ED Patient Summaryon 024 ED Patient Summary [address] [address] Patient Discharge Instructions Person Information Name: KASSIE DIALLO Age: 27 Years Arrival Date: 03/16/2023 09:29:52 Discharge Diagnosis: Chest pain Primary Care Physician: Will Mora Provider Information Primary Provider: Quintin Murcia DO Advanced Professor Of Psychiatry:Linda The exam and treatment you received in the Emergency Department were for an urgent problem and are not intended as complete care. It is important that you follow up with a doctor, nurse practitioner, or physician?s promotions assistant sales marketing for ongoing care. If your symptoms become worse or you do not improve as expected and you are unable to reach your usual health care provider, you should return to the Emergency Department. We are available 24 hours a day. KASSIE DIALLO has been given the following list of patient education materials, prescriptions and follow-up instructions: Follow-up Instructions: With: Address: When: Huang FLORES [address] [place] [address] [phone] Business (1) In 3 days 03/19/2023 Comments: Keep your upcoming appointment with Dr. Flores With: Address: When: Will Hawthorne In 3 days 03/19/2023 Comments: Call the office of your primary care doctor [...] if you develop any new or worsening symptoms. Seek immediate medical attention if you develop: worsening chest pain, new chest pain, nausea, vomiting, weakness, numbness, tingling, excessive sweating, shortness of breath, difficulty breathing, loss of motion in your arms or legs, or any new or worsening symptoms. In the event that this physician does not participate in your insurance network, please consult with your insurance company to find a nearby participating provider. Patient Education Materials: Nonspecific Chest Pain, Adult A MESSAGE TO ALL PATIENTS REGARDING OPIOIDS PRESCRIPTION OPIOIDS: WHAT YOU NEED TO KNOW Prescription opioids can be used to help relieve ougbafwh-ww-xjxlez pain and are often prescribed following a surgery or injury, or for certain health conditions. These medications can be an important part of the treatment but also come with serious risks. It is important to work with your healthcare provider to make sure you are getting the safest, most effective care. WHAT ARE THE RISKS AND SIDE EFFECTS OF OPIOID USE? Prescription opioids carry serious risks of addiction and overdose, especially with prolonged use. An opioid overdose, often marked by slowed breathing, can cause sudden . The use of prescription opioids can have a number of side effects as well, even when taken as directed: ? Tolerance?meaning you might need to take more of the medication for the same pain relief ? Physical dependence?meaning you have symptoms of withdrawal when a medication is stopped ? Increased sensitivity to pain ? Constipation ? Nausea, vomiting, and dry mouth ? Sleepiness and dizziness ? Confusion ? Depression ? Low levels of testosterone that can result in lower sex drive, energy, and strength ? Itching and sweating RISKS ARE GREATER WITH: ? History of drug misuse, substance use disorder, or overdose ? Mental health conditions (such as depression or anxiety) ? Sleep apnea ? Older age (65 years and older) ? Avoid alcohol while taking prescription opioids. Also, unless specifically advised by your health care provider, medications to avoid include: ? Benzodiazepines (such as Xanax or Valium) ? Muscle relaxants (such as Soma or Flexeril) ? Hypnotics (such as Ambien or Lunesta) ? Other prescription opioids KNOW YOUR OPTIONS Talk to your health care provider about ways to manage your pain that don?t involve prescription opioids. Some of these options may actually work better and have fewer risks and side effects. Options may include: ? Pain relievers such as acetaminophen, ibuprofen, and naproxen ? Some medication that are also used for depression or seizures ? Physical therapy and exercise ? Cognitive behavioral therapy, a psychological, goal-directed approach, in which patients learn how to modify physical, behavioral, and emotional triggers of pain and stress. IF YOU ARE PRESCRIBED OPIOIDS FOR PAIN: ? Never take opioids in greater amounts or more often than prescribed. ? Follow up with your primary health care provider. o Work together to create a (more content not included)... Normal [facility] HEMATOLOGYOrdered By: happn SYSTEM on 03-16-2023 Basophils/100 WBC (Bld) 0.9 % Normal 0.0 - 2.0 % [facility] HemeAutoSS Basophils/Leukocytes Auto (Bld) [Pure # fraction] 0.1 E9/L Normal 0.0 - 0.2 E9/L [facility] Eosinophils/100 WBC (Bld) 3.7 % Normal 0.0 - 8.0 % [facility]eAutoSS Eosinophils/Leukocytes Auto (Bld) [Pure # fraction] 0.2 E9/L Normal 0.0 - 0.5 E9/L [facility] Lymphocytes/100 WBC (Bld) 30.5 % Normal 14.0 - 50.0 % [facility]eAuto[facility] Lymphocytes/Leukocytes Auto (Bld) [Pure # fraction] 1.9 E9/L Normal 1.0 - 4.0 E9/L [facility] Monocytes/100 WBC (Bld) 8.4 % Normal 4.0 - 14.0 % [facility]eAutoSS Monocytes/Leukocytes Auto (Bld) [Pure # fraction] 0.5 E9/L Normal 0.2 - 1.0 E9/L [facility] Neutrophils/100 WBC (Bld) 56.5 % Normal 36.0 - 75.0 % [facility]eAutoSS Neutrophils/Leukocytes Auto (Bld) [Pure # fraction] 3.4 E9/L [...] 33.5 g/dL Normal 31.4 - 36.0 gm/dL [facility] HemeAutoSS MCV (RBC) [Entitic vol] 85.8 fL Normal 80.0 - 100.0 fL [facility] HemeAutoSS Platelet mean volume (Bld) [Entitic vol] 8.2 fL Normal 6.4 - 10.8 fL [facility] HemeAutoSS Platelets (Bld) [#/Vol] 222.0 E9/L Normal 150.0 - 500.0 E9/L [facility] HemeAutoSS RBC (Bld) [#/Vol] 4.3 E12/L Normal 4.3 - 5.9 E12/L [facility] HemeAutoSS WBC corrected for nucl RBC Auto (Bld) [#/Vol] 6.1 E9/L Normal 4.0 - 11.0 E9/L [facility] HemeAutoSS Hep Func Panelon 03-16-2023 Albumin/Globulin [Mass ratio] 1.7 {ratio} Normal 1.1-2.2 [facility] Comment on above: Performed By: #### 2 [id number], [id number], 1413025, 2649587, 6136387, 6888462, 82991397 #### [facility] [address] [place] [address] Globulin (S) [Mass/Vol] 2.4 g/dL Normal 1.4-4.0 [facility] Comment on above: Performed By: #### 2 957058, 48053365, 3947535, 8466150, 0221434, 0885906, 23493285 #### [facility] [address] [place] [address] Protein [Mass/Vol] 6.5 g/dL Normal 6.0-7.8 [facility] Comment on above: Performed By: #### 2 665730, 82764056, 6787480, 6731299, 4371961, 5513786, 37707561 #### [facility] [address] [place] [address] Albumin [Mass/Vol] 4.1 g/dL Normal 3.3-5.0 [facility] Comment on above: Performed By: #### 2 652036, 54756631, 6424015, 9261267, 0083490, 6336320, 16722183 #### [facility] [address] [place] [address] Alk Phos 71 Int._Unit/L Normal 21-98 [facility] Comment on above: Performed By: #### 2 953291, 07775563, 8012500, 2038060, 0816450, 3249876, 45013696 #### [facility] [address] [place] [address] ALT 9 Int._Unit/L Normal 6-46 [facility] Comment on above: Performed By: #### 2 312994, 38463190, 3791297, 1602890, 6137185, 7971072, 86879709 #### [facility] [address] [place] [address] AST 10 Int._Unit/L Normal 5-43 [facility] Comment on above: Performed By: #### 2 980188, 71058989, 8119622, 0354189, 6957423, 9532934, 60445285 #### [facility] [address] [place] [address] Bili Direct 0.1 mg/dL Normal 0.0-0.4 [facility] Comment on above: Performed By: #### 2 400667, 21862384, 4407399, 4960563, 1734116, 8147236, 07833363 #### [facility] [address] [place] [address] Bili Indirect 0.2 mg/dL Normal 0.1-0.9 [facility] Comment on above: Performed By: #### 2 868064, 87597782, 0010678, 6700458, 4001488, 5660219, 50826300 #### [facility] [address] [place] [address] Bili Total 0.3 mg/dL Normal 0.0-1.1 [facility] Comment on above: Performed By: #### 2 074753, 81418308, 6459851, 3589657, 9478549, 7786215, 10318331 #### [facility] [address] [place] [address] PT & PTTon 03-16-2023 aPTT Coag (PPP) [Time] 37.3 second(s) High 25.1-36.5 [facility] Comment on above: Result Comment: Para meter [...] the same coagulation reagent and instrumentation as [facility]. Currently there are no coagulation studies available worldwide for children to 14 days, and no normal ranges. Heparin therapeutic range (represented by Anti-Factor Xa activity of 0.2 - 0.4 U/mL) corresponds to PTT of 56.6 - 109.0 sec. Performed By: #### 2 721801, 74466916, 3681141, 2985651, 6080526, 8500961, 50727928 #### [facility] [address] [place] [address] INR Coag (PPP) [Relative time] 1.1 {INR} Invalid Interpretation Code [facility] Comment on above: Result Comment: INR results are specifically intended to assess patients stabilized on long-term Anticoagulation therapy suggested INR?s ?Less Intensive Anticoagulation? 2.0 ? 3.0 Conventional Range 3.0 ? 4.5 Performed By: #### 2 021732, 63215075, 5589122, 2091830, 2340541, 8728536, 45696628 #### [facility] [address] [place] [address] PT Coag (PPP) [Time] 12.6 second(s) High 9.4-12.5 [facility] Comment on above: Result Comment: 15 d [...] the same coagulation reagent and instrumentation as [facility]. Currently there are no coagulation studies available worldwide for children to 14 days, and no normal ranges. Performed By: #### 2 872523, 84875626, 5733185, 9294109, 7122035, 3139359, 60530513 #### [facility] [address] [place] [address] Troponin 0 Hr.on 03-16-2023 Troponin I.cardiac [Mass/Vol] ng/mL Low 10.10-27.10 [facility] Comment on above: Result Comment: The 95% CI (Confidence Interval) PPV (Positive Predictive Value) for myocardial infarction in females is 38 pg/mL, in males 51 pg/mL. The results should be used in conjunction with clinical conditions of myocardial infarction. (Access High Sensitivity Troponin I Instructions For Use, Naty Rena Lara, October 2017) Performed By: #### 2 584291, 74104387, 4290545, 8346522, 9654492, 7794762, 11821645 #### [facility] [address] [place] [address] XR Chest Single Viewon 03-16 XR Chest Single View Exam Date/Time: 03/16/2023 10:17 EST Reason for Exam: Chest pain Report IMPRESSION: No acute radiographic abnormality. EXAMINATION: XR Chest Single View Clinical History: Chest pain Comparison: 05/11/2022. RESULT: No consolidation. No pleural effusion. No pneumothorax. Normal cardiomediastinal silhouette. No acute osseous findings. Ordering Provider: Quintin Murcia FINAL REPORT Dictated: 03/16/2023 10:20 am Huang Ramirez MD Signed (Electronic Signature): 03/16/2023 10:20 am Signed by: Huang Ramirez MD Transcribed by: ABIGAIL Technologist: KAREN Technical Comments Radiation Dose: Ka,r in mGy = na DAP = na Normal [facility] eGFRon 03-16-2023 GFR/1.73 sq M.predicted among non-blacks MDRD (S/P/Bld) [Vol rate/Area] mL/min/{1.73_m2} Normal >=59 [facility] Comment on above: Order Comment: Order added by Discern Expert. Performed By: #### 2 137633, 53796976, 2791269, 3966419, 5955236, 4633439, [id number] #### [facility] [address] [place] [address] RAD - Ultrasound Reporton RAD - Ultrasound Report [id number] .00TIFF Normal [facility] Discharge Note - PTon 2022 Discharge Note - PT [id number] .00TIFF Normal [facility] Consent for Treatmenton 02-05 Consent for Treatment [id number] .00TIFF Normal [facility] Medication Consenton 023 Medication Consent [id number] .00TIFF Normal [facility] Ambulatory Visit Summaryon 04-26-2022 Ambulatory Visit Summary KOLEISHANKASSIE LIGIA :1995 Visit Date:02/23/2023 Ambulatory Visit Instructions Your Diagnosis Anxiety BMI 24.0-24.9, adult Nonsmoker Your Care Team Attending Physician - Will Mora Primary Care Physician - Will Mora This Is Your Medications List sertraline (sertraline 25 mg Tab) Procedures Performed Betamethasone (02/01/2017), Betamethasone (01/31/2017), lacerated Kidney (2007), Right Hand Surgery. Discharge Vitals Temperature (Temporal Artery) 36.5 ?C Heart Rate (Peripheral) 76 Respiratory Rate 16 Blood Pressure 112/70 Height 170 cm Height 67 in Weight 71.7 kg Weight 157.74 lb BMI 24.81 What to do next Scheduled Follow-Up Appointments Tuesday 9:00 AM EST With: Where: [facility] Tuesday 1:00 PM EST With: MARK GAMBLE, Huang Wall Where: [facility] Medications What How Much When Instructions Unchanged sertraline (sertraline 25 mg Tab) 1 Tablets By Mouth Every day Allergies clindamycin (Hives) Problems Ongoing - Any problem that you are currently receiving treatment for. Abdominal pain Abnormal EKG Amenorrhea, secondary Anxiety Bacterial conjunctivitis of right eye Bipolar 1 disorder, mixed, moderate Bipolar disorder Cellulitis, leg Cervical sprain Cervical strain Chronic abdominal pain Depression Heart palpitations Migraines Neck muscle strain Pelvic pain Peroneal neuritis PTSD (post-traumatic stress disorder) Right hand pain Right upper quadrant pain Screening for cardiovascular condition Screening for thyroid disorder Smoker Vulvovaginitis Historical - Any problem that you are no longer receiving treatment for. Depression Laceration of kidney without open wound into abdominal cavity orthostatic fainting Pseudoseizures Suicidal ideation Patient Survey You may receive a survey via text or e-mail asking about your office visit. Please share your experience with us by completing your survey. We appreciate your feedback and thank you for choosing us for your care. Pacheco Rodriguez [facility] Family Medicine Office/Clini c Noteon 02-23-2023 Family Medicine Office/Clinic Note HPI Staff Kassie is a 27 year old female presenting for ER follow up ER followup: Hospital: [facility] Visit date: 02/10/23 and 02/15/23 Symptoms the patient presented with: Diarrhea/Vomiting/Gordo sea Symptom onset/injury onset: Testing Performed: labs Potassium 3.1 (02/15/23) , 02/10/23 Potassium 3.9 New medications: Bentyl 10mg QID Current concerns: none Follow up for Mental Status: phone call on 02/18/23 advised patient if she doesn't like how Zoloft was making her feel she could begin to wean herself off by taking one every other day for 1 week then every day days until medication is gone. She is currently taking a half every day of the zoloft it's easier for her to remember that way Suicidal thoughts had some feelings earlier this week but not a crisis situation feels her depression isn't getting any better skipped a dose one day due to she had to take an imitrex and noticed no palpitations when didn't take the zoloft. Noticeing less plapitations since going down to 1/2 dose a day but still having them. Most recent JULIA: 13 Most recent PHQ: n/a bipolar History of Present Illness pt presents today for follow up from 2 ER visits recently Review of Systems ROS - Provider Constitutional: no fever, no chills, no sweats, no fatigue Respiratory: no shortness of breath, no cough, no orthopnea, no wheezing. Cardiovascular: no chest pain, no palpitations, no edema. Neurologic: no headache, no dizziness, no numbness, no weakness. Physical Exam Vitals & Measurements T: 36.5 ?C(Temporal Artery) HR: 76(Peripheral) RR: 16 BP: 112/70 SpO2: 100% HT: 67 in HT: 170 cm WT: 71.7 kg WT: 157.74 lb BMI: 24.81 General: alert, no acute distress ENMT: oral mucosa moist, no pharyngeal erythema or exudate Cardiovascular: regular rate and rhythm, normal peripheral perfusion Respiratory: Lungs CTA, respirations non labored Extremities: no deformity, no trauma Neurological: oriented x 4, LOC appropriate for age, CN II-XII intact, motor strength equal & normal bilaterally, speech normal Assessment/Plan 1. Anxiety (F41.9: Anxiety disorder, unspecified) pt presents today for follow up on 2 ER visits. pt was having diarrhea and was dehydrated and potassium was low. pt was given potassium and she state she has been having worsening heart palpitations since. she is scheduled for halter monitor placement on Tuesday. pt has been weaning off the zoloft that we started because she thinks that worsened the palpitations as well. pt given a limited supply of Ativan to help with her anxiety. she stresses and worries over everything. she also googles everything and gets herself worked up a lot. OARRS report reviewed before prescribing the ativan. medication agreement signed. all questions answered. RTC as needed Ordered: lorazepam, 0.25 mg = 0.5 tab(s), Oral, Once, PRN as needed for anxiety, # 10 tab(s), Refills(s) 0, Pharmacy: [facility]/pharmacy #[id number], 170, cm, 02/23/23 10:36:00 EST, Height/Length Dosing, 71.7, kg, 02/23/23 10:36:00 EST, Weight Dosing 2. BMI 24.0-24.9, adult (Z68.24: Body mass index [BMI] 24.0-24.9, adult) BMI education complete Ordered: lorazepam, 0.25 mg = 0.5 tab(s), Oral, Once, PRN as needed for anxiety, # 10 tab(s), Refills(s) 0, Pharmacy: [facility]/pharmacy #[id number], 170, cm, 02/23/23 10:36:00 EST, Height/Length Dosing, 71.7, kg, 02/23/23 10:36:00 EST, Weight Dosing Body Mass Index (BMI) documented 3008F Current tobacco non-user 1036F Most recent diastolic blood pressure <80 mm Hg 3078F Systolic BP <130 mm Hg (Most Recent) 3074F 3. Nonsmoker (Z78.9: Other specified health status) continue not smokiing Ordered: lorazepam, 0.25 mg = 0.5 tab(s), Oral, Once, PRN as needed for anxiety, # 10 tab(s), Refills(s) 0, Pharmacy: [facility]/pharmacy #[id number], 170, cm, 02/23/23 10:36:00 EST, Height/Length Dosing, 71.7, kg, 02/23/23 10:36:00 EST, Weight Dosing Body Mass Index (BMI) documented 3008F Current tobacco non-user 1036F Most recent diastolic blood pressure <80 mm Hg 3078F Systolic BP <130 mm Hg (Most Recent) 3074F Follow-up No qualifying data available Problem List/Past Medical History Ongoing Abdominal pain Abnormal EKG Amenorrhea, secondary Anxiety Bacterial conjunctivitis of right eye Bipolar 1 disorder, mixed, moderate Bipolar disorder Cellulitis, leg Cervical sprain Cervical strain Chronic abdominal pain Depression Heart palpitations Migraines Neck muscle strain Pelvic pain Peroneal neuritis PTSD (post-traumatic stress disorder) Right hand pain Right upper quadrant pain Screening for cardiovascular condition Screening for thyroid disorder Smoker Vulvovaginitis Historical Depression Laceration of kidney without open wound into abdominal cavity orthostatic fainting Pseudoseizures Suicidal ideation Procedure/Surgical History Betamethasone (02/01/2017), Betamethasone (01/31/2017), lacerated Kidney (2007), Right Hand Surgery. Medications A (more content not included)... Normal [facility] Comment on above: Result Comment: Elec tronically Signed By: Will Mora\.br\Date and Time Signed: 02/23/23 10:59 EST ED Note-Physicianon 02-22-20 ED Note-Physician Basic Information Time Seen: Marleen Tapia PA-C 02/15/2023 15:33 Chief Complaint Pt presents to ED with complaints of diarrhea x5 days. seen in ED for symptoms, tolerating PO intake. History of Present Illness 27-year-old female presents with watery diarrhea for the past 5 days. She was in here a day after her symptoms started and was discharged home. She finished amoxicillin last week for tooth infection. She states that she did have diarrhea yesterday and today it came back. Her son and also have the same symptoms. She is complaining of cramping abdominal pain. Denies radiation of pain. Denies fever, dizziness, weakness, back pain, n/v, dysuria, shortness of breath or chest pain Review of Systems Review of systems negative unless otherwise stated in HPI Physical Exam Vitals & Measurements T: 36.5 ?C(Oral) HR: 74(Peripheral) RR: 18 BP: 103/54 SpO2: 99% HT: 170 cm WT: 71.3 kg BMI: 24.67 GENERAL: ALERT, NO ACUTE DISTRESS SKIN: WARM, DRY, INTACT; NO CYANOSIS, NO RASH HEAD: NORMOCEPHALIC, ATRAUMATIC ENT: EYE: PERRL, EOMI, NORMAL CONJUNCTIVA, NO DISCHARGE NOSE: NARES PATENT MOUTH: ORAL MUCOSA MOIST THROAT: NO STRIDOR NECK: SUPPLE, TRACHEA MIDLINE, FROM RESPIRATORY: NON-LABORED RESPIRATIONS, SYMMETRICAL EXPANSION ABDOMEN: SOFT, NT, NORMAL BS, NO ORGANOMEGALY, NON DISTENDED, NO REBOUND TENDERNESS,GUARDING OR PERITONEAL SIGNS EXTREMITIES: FROM X 4 NEUROLOGICAL: A&OX3 SPINE: No CVA tenderness PSYCHIATRIC: COOPERATIVE, APPROPRIATE MOOD AND AFFECT Medical Decision Making Previous record reviewed. Patient given Bentyl and Pepto. She declines having a peripheral IV and therefore declines IV fluids. Stool studies ordered and pending. Potassium 3.1 and given 25 p.o. No other significant lab normalities. She can continue with Pepto at home and will be prescribed Bentyl and follow-up family doctor. Likely viral as other people in her household have the same symptoms. Afebrile, not tachycardic, tolerating p.o. and ambulating at baseline and hemodynamically stable to be discharged home. Educated side effect of medications. Answered all questions. Patient in agreement with treatment. Assessment/Plan 1. Diarrhea (R19.7: Diarrhea, unspecified) Ordered: dicyclomine, 10 mg = 1 cap(s), Oral, QID, X 2 day(s), # 8 cap(s), Refills(s) 0, Pharmacy: [facility]/pharmacy #[id number], 170, cm, 02/15/23 15:41:00 EST, Height/Length Dosing, 71.3, kg, 02/15/23 15:41:00 EST, Weight Dosing 2. Hypokalemia (E87.6: Hypokalemia) Ordered: dicyclomine, 10 mg = 1 cap(s), Oral, QID, X 2 day(s), # 8 cap(s), Refills(s) 0, Pharmacy: [facility]/pharmacy #[id number], 170, cm, 02/15/23 15:41:00 EST, Height/Length Dosing, 71.3, kg, 02/15/23 15:41:00 EST, Weight Dosing Orders: bismuth subsalicylate, 524 mg, 30 mL, Susp-Oral, Oral, Once, Stop date 02/15/23 15:59:00 EST, STAT, Start date 02/15/23 15:59:00 EST dicyclomine, 20 mg = 2 mL, Injection, IntraMuscular, Once, Stop date 02/15/23 15:59:00 EST, STAT, Start date 02/15/23 15:59:00 EST, 02/15/23 15:59:00 EST potassium bicarbonate, 50 mEq = 2 tab(s), Tab-Eff, Oral, Once, Stop date 02/15/23 18:24:00 EST, STAT, Start date 02/15/23 18:24:00 EST, 02/15/23 18:24:00 EST Sodium Chloride 0.9% intravenous solution 1,000 mL, 1,000 mL, IV, bolus, STAT, Start date 02/15/23 15:55:00 EST, Total volume (mL): 1,000, Bolus Dose: 1,000 mL, 71.3 kg, 1.83, m2 Automated Diff CBC w/ Auto Diff Clostridium Difficile PCR Comprehensive Metabolic Panel eGFR Fecal WBC Lactoferrin Lipase Level Magnesium Level Rotavirus Ab Saline Lock Insert U Beta Hcg Qual UA With Cult Reflex Medications Administered Given Bentyl 10 mg/mL Injection, 20 mg, IntraMuscular Pepto-Bismol Suspension 262 mg/15 mL Susp-Oral, 524 mg, Oral Disposition Plan Patient Discharge Condition Stable Discharge Disposition Home Discharge Prescription List Prescriptions Bentyl 10 mg Cap, 10 mg= 1 cap(s), Oral, QID Follow-up With When Contact Information Will Mora, FAM, MED In 3 days 02/18/2023 EST Additional Instructions: Patient Education Potassium Content of Foods Hypokalemia Diarrhea, Adult, [id number] Attestation This visit was performed by both the physician and an APC. I performed all aspects of the MDM as documented. Problem List/Past Medical History Ongoing Abdominal pain Abnormal EKG Amenorrhea, secondary Anxiety Bacterial conjunctivitis of right eye Bipolar 1 disorder, mixed, moderate Bipolar disorder Cellulitis, leg Cervical sprain Cervical strain Chronic abdominal pain Depression Heart palpitations Migraines Neck muscle strain Pelvic pain Peroneal neuritis PTSD (post-traumatic stress disorder) Right hand pain Right upper quadrant pain Screening for cardiovascular condition Screening for thyroid disorder Smoker Vulvovaginitis Historical Depression Laceration of kidney without open wound into abdominal cavity orthostatic fainting Pregnanc (more content not included)... Normal [facility] Comment on above: Result Comment: Elec tronically Signed By: Regina IVY, Marleen E.\.br\Date and Time Signed: 02/15/23 18:28 EST\.br\Electronically Co-Signed By: Nicolas Izquierdo DO\.br\Date and Time Co-Signed: 02/21/23 07:20 EST PT - Progress Noteson 2022 PT - Progress Notes [id number] Normal [facility] Rota Abon 02-17-2023 Rotavirus Ag IA Ql (Stl) Negative Invalid Interpretation Code Negative [facility] Comment on above: Result Comment: Perf ormed at: [facility] [address] [id number] PhD Filipe Cisneros Performed By: #### 4 [id number], 03221797, 06966146, [id number] ####[facility] [address] [place] [address] Auto Diffon 02-15-2023 Basophils/100 WBC (Bld) 0.8 % Normal 0.0-2.0 [facility] Comment on above: Order Comment: Order Added by Discern Expert. Performed By: #### 2 663554, 92584357, 8977509, 4559507, 7346150, 2696659, 81093528 #### [facility] [address] [place] [address] Basophils/Leukocytes Auto (Bld) [Pure # fraction] 0.0 E9/L Normal 0.0-0.2 [facility] Comment on above: Order Comment: Order Added by Discern Expert. Performed By: #### 2 065227, 88001058, 7640216, 0600016, 9152485, 6129121, 91124104 #### [facility] [address] [place] [address] Eosinophils/100 WBC (Bld) 2.2 % Normal 0.0-8.0 [facility] Comment on above: Order Comment: Order Added by Discern Expert. Performed By: #### 2 646635, 86535506, 5696416, 5506534, 6508131, 8301098, 42440396 #### [facility] [address] [place] [address] Eosinophils/Leukocytes Auto (Bld) [Pure # fraction] 0.1 E9/L Normal 0.0-0.5 [facility] Comment on above: Order Comment: Order Added by Discern Expert. Performed By: #### 2 822376, 33614787, 4774945, 7857890, 4238234, 8592759, 38201633 #### [facility] [address] [place] [address] Lymphocytes/100 WBC (Bld) 31.6 % Normal 14.0-50.0 [facility] Comment on above: Order Comment: Order Added by Discern Expert. Performed By: #### 2 152649, 26638869, 4902727, 9834527, 1210840, 1610473, 99940356 #### [facility] [address] [place] [address] Lymphocytes/Leukocytes Auto (Bld) [Pure # fraction] 1.7 E9/L Normal 1.0-4.0 [facility] Comment on above: Order Comment: Order Added by Discern Expert. Performed By: #### 2 696851, 84001039, 6512180, 6256244, 3359130, 2477465, 28252209 #### [facility] [address] [place] [address] Monocytes/100 WBC (Bld) 7.8 % Normal 4.0-14.0 [facility] Comment on above: Order Comment: Order Added by Discern Expert. Performed By: #### 2 196812, 13959236, 5835985, 5110153, 3605154, 4267583, 72993465 #### [facility] [address] [place] [address] Monocytes/Leukocytes Auto (Bld) [Pure # fraction] 0.4 E9/L Normal 0.2-1.0 [facility] Comment on above: Order Comment: Order Added by Discern Expert. Performed By: #### 2 004426, 91523584, 7805046, 4574540, 3173590, 0621497, 10918068 #### [facility] [address] [place] [address] Neutrophils/100 WBC (Bld) 57.6 % Normal 36.0-75.0 [facility] Comment on above: Order Comment: Order Added by Discern Expert. Performed By: #### 2 406725, 12596530, 9295095, 8702471, 6093646, 3407790, 23669378 #### [facility] [address] [place] [address] Neutrophils/Leukocytes Auto (Bld) [Pure # fraction] 3.2 E9/L Normal 2.0-7.5 [facility] Comment on above: Order Comment: Order Added by Discern Expert. Performed By: #### 2 523261, 60143255, 1913774, 4297229, 7448764, 0357194, 13079609 #### [facility] [address] [place] [address] C. diff by PCRon 02-15-2023 Clostridium difficile by PCR Negative Normal Negative [facility] Comment on above: Order Comment: Order added by Discern Expert. Result Comment: This test result should be correlated with clinical presentations and medical history by a healthcare provider to determine its clinical significance. Performed By: #### 4 [id number], 45161838, 34440371, [id number] ####[facility] [address] [place] [address] CBC w/ Auto Diffon Erythrocyte distribution width (RBC) [Ratio] 12.9 % Normal 10.9-14.2 [facility] Comment on above: Performed By: #### 2 426573, 03528505, 8962397, 6367682, 3671065, 8171482, 90168776 #### [facility] [address] [place] [address] Hematocrit (Bld) [Volume fraction] 36.3 % Normal 34.0-46.0 [facility] Comment on above: Performed By: #### 2 351519, 28947136, 2038475, 5956369, 9915619, 3808998, 19662868 #### [facility] [address] [place] [address] Hemoglobin (Bld) [Mass/Vol] 12.3 g/dL Normal 12.0-16.0 [facility] Comment on above: Performed By: #### 2 967895, 38922356, 2774369, 9474812, 5845163, 5300875, 73498542 #### [facility] [address] [place] [address] MCH (RBC) [Entitic mass] 29.2 pg Normal 27.0-34.0 [facility] Comment on above: Performed By: #### 2 006918, 63944532, 3246109, 5834313, 5272030, 2592745, 95936319 #### [facility] [address] [place] [address] MCHC (RBC) [Mass/Vol] 34.0 g/dL Normal 31.4-36.0 [facility] Comment on above: Performed By: #### 2 438997, 92394073, 3615847, 5127138, 7970480, 1258258, 99882333 #### [facility] [address] [place] [address] MCV (RBC) [Entitic vol] 85.8 fL Normal 80.0-100.0 [facility] Comment on above: Performed By: #### 2 929988, 17356979, 6058008, 6587116, 3412173, 3588071, 87852555 #### [facility] [address] [place] [address] Platelet mean volume (Bld) [Entitic vol] 8.3 fL Normal 6.4-10.8 [facility] Comment on above: Performed By: #### 2 542922, 47145064, 4878669, 0877801, 3466390, 3990438, 24732533 #### [facility] [address] [place] [address] Platelets (Bld) [#/Vol] 246.0 E9/L Normal 150.0-500.0 [facility] Comment on above: Performed By: #### 2 339292, 52733173, 6395450, 2809248, 6592860, 6998774, 03762432 #### [facility] [address] [place] [address] RBC (Bld) [#/Vol] 4.2 E12/L Low 4.3-5.9 [facility] Comment on above: Performed By: #### 2 489590, 40288051, 2934439, 8860265, 8132256, 6892069, 80614840 #### [facility] [address] [place] [address] WBC corrected for nucl RBC Auto (Bld) [#/Vol] 5.5 E9/L Normal 4.0-11.0 [facility] Comment on above: Performed By: #### 2 511960, 82873100, 2362940, 2521545, 5576223, 0799077, 92449691 #### [facility] [address] [place] [address] CDiff PCRon 02-15-2023 Cdiff Specimen Acceptable Acceptable Normal [facility] Comment on above: Performed By: #### 4 43047966, 66587486, 89698198, [id number] ####[facility] [id number] [place] [address] Order Cancelled No, PCR to follow Normal Fi [facility] Comment on above: Performed By: #### 4 27139937, 70837588, 81603750, 8878113630 ####[facility] [id number] [place] [address] CHEMISTRYOrdered By: SYSTEM SYSTEM on 02-15-2023 Albumin [...] 02-15-2023 Albumin [Mass/Vol] 4.1 g/dL Normal 3.3-5.0 [facility] Comment on above: Performed By: #### 2 021020, 84596456, 0866326, 4309837, 2015369, 7769592, 78241219 #### [facility] [address] [place] [address] Albumin/Globulin [Mass ratio] 1.9 {ratio} Normal 1.1-2.2 [facility] Comment on above: Performed By: #### 2 439400, 29540531, 3194769, 6023090, 7140682, 5276981, 52223484 #### [facility] [address] [place] [address] Alk Phos 66 Int._Unit/L Normal 21-98 [facility] Comment on above: Performed By: #### 2 663544, 99255623, 9496545, 2761293, 2972460, 2441691, 63514451 #### [facility] [address] [place] [address] ALT 11 Int._Unit/L Normal 6-46 [facility] Comment on above: Performed By: #### 2 539769, 39939634, 0945193, 7045044, 9149075, 1091187, 09700210 #### [facility] [address] [place] [address] Anion gap [Moles/Vol] 11 mmol/L Normal 6-16 [facility] Comment on above: Performed By: #### 2 004450, 83784485, 2509068, 9421070, 7701663, 9211790, 18132285 #### [facility] [address] [place] [address] AST 12 Int._Unit/L Normal 5-43 [facility] Comment on above: Performed By: #### 2 281195, 14981098, 6415478, 8703558, 8653768, 4488404, 41466206 #### [facility] [address] [place] [address] Bili Total 0.2 mg/dL Normal 0.0-1.1 [facility] Comment on above: Performed By: #### 2 911068, 60689447, 3693155, 1133092, 5162651, 6171970, 23100021 #### [facility] [address] [place] [address] BUN/Creat Ratio 16 No Units Normal 10-20 [facility] Comment on above: Performed By: #### 2 212191, 36421431, 5292400, 4523032, 4936951, 0069102, 30805511 #### [facility] [address] [place] [address] Calcium [Mass/Vol] 8.7 mg/dL Low 8.9-11.1 [facility] Comment on above: Performed By: #### 2 789646, 50018241, 0850514, 0369703, 1912776, 3458659, 39572053 #### [facility] [address] [place] [address] Chloride [Moles/Vol] 112 mmol/L High 101-111 [facility] Comment on above: Performed By: #### 2 396523, 37783059, 3325604, 3788860, 9005270, 8874740, 36527853 #### [facility] [address] [place] [address] CO2 [Moles/Vol] 22 mmol/L Normal 21-31 [facility] Comment on above: Performed By: #### 2 331082, 89366473, 2051990, 3719475, 0868598, 3939016, 84328542 #### [facility] [address] [place] [address] Creatinine [Mass/Vol] 0.7 mg/dL Normal 0.5-1.3 [facility] Comment on above: Performed By: #### 2 412867, 50501813, 1142560, 7086361, 4061849, 1966630, 85107259 #### [facility] [address] [place] [address] Globulin (S) [Mass/Vol] 2.2 g/dL Normal 1.4-4.0 [facility] Comment on above: Performed By: #### 2 494382, 32340940, 4779456, 4893322, 8449172, 1688428, 43457532 #### [facility] [address] [place] [address] Glucose [Mass/Vol] 80 mg/dL Normal 55-199 [facility] Comment on above: Performed By: #### 2 285005, 11055727, 9796381, 1785999, 0605454, 6569494, 70688113 #### [facility] [address] [place] [address] Potassium [Moles/Vol] 3.1 mmol/L Low 3.5-5.3 [facility] Comment on above: Performed By: #### 2 395071, 56842891, 7109713, 3366469, 9513707, 8622171, 31258946 #### [facility] [address] [place] [address] Protein [Mass/Vol] 6.3 g/dL Normal 6.0-7.8 [facility] Comment on above: Performed By: #### 2 711410, 77549831, 5188349, 5340974, 1241708, 0967812, 69732324 #### [facility] [address] [place] [address] Sodium [Moles/Vol] 142 mmol/L Normal 135-145 [facility] Comment on above: Performed By: #### 2 468672, 96447639, 0970121, 4076951, 5967287, 8774604, 76801988 #### [facility] [address] [place] [address] Urea nitrogen [Mass/Vol] 11 mg/dL Normal 5-21 [facility] Comment on above: Performed By: #### 2 497097, 32272266, 7190221, 4835861, 5730735, 8009332, 07308674 #### [facility] [facility] [address] [place] [address] Consent for Treatmenton 12- Consent for Treatment [id number] Normal [facility] Discharge Instructionson Discharge Instructions [id number] Normal [facility] ED Clinical Summaryon 2022 ED Clinical Summary [place] [id number] ED Clinical Summary Person Information Name: KASSIE DIALLO/[facility] Age: 27 Years : 1995 Sex: Female Language: Saudi Arabian PCP: Will Mora Marital Status: Phone: [phone] Visit Id: Visit Reason: Diarrhea; STOMACH BUG Speciality: Acuity: 4 Enc Type: Emergency Med Service: Emergency Arrival: 02/15/2023 15:28:36 Discharge: 02/15/2023 18:47:47 LOS: 000 03:19 Checkin: 02/15/2023 15:28:36 Checkout: 02/15/2023 18:47:47 Dispo Type: Home (Routine DC) EVENTS: Event Name Event Status Request Date/Time Start Date/Time Complete Date/Time Arrive Complete 02/15/2023 15:28:36 02/15/2023 15:28:36 02/15/2023 15:28:36 Document Home Meds Request 02/15/2023 15:28:36 Triage Complete 02/15/2023 15:28:36 02/15/2023 15:41:12 02/15/2023 15:41:12 Dr Exam Complete 02/15/2023 15:33:47 02/15/2023 15:33:47 02/15/2023 15:33:47 Registration Complete 02/15/2023 15:33:47 02/15/2023 15:36:24 02/15/2023 15:36:33 Bed Assign Complete 02/15/2023 15:36:24 02/15/2023 15:36:24 02/15/2023 15:36:24 RN Exam Complete 02/15/2023 15:36:24 02/15/2023 15:44:29 02/15/2023 15:44:29 Reg Complete Request 02/15/2023 15:36:33 Dr Exam Complete 02/15/2023 15:36:53 02/15/2023 15:36:53 02/15/2023 15:36:53 Registration Request 02/15/2023 15:36:53 Patient Care Request 02/15/2023 15:53:39 Pending Labs Complete 02/15/2023 15:53:39 02/15/2023 18:14:27 Lab Complete 02/15/2023 15:53:39 02/15/2023 18:14:27 Urine Collect Complete 02/15/2023 15:53:39 02/15/2023 16:55:28 Pending Labs Collected 02/15/2023 15:55:07 Lab Collected 02/15/2023 15:55:07 Meds Admin Request 02/15/2023 15:55:20 Meds Admin Complete 02/15/2023 15:59:36 02/15/2023 16:14:29 Meds Admin Complete 02/15/2023 15:59:50 02/15/2023 16:08:47 Pending Labs Complete 02/15/2023 16:05:47 02/15/2023 16:05:47 02/15/2023 18:14:27 Lab Complete 02/15/2023 16:05:47 02/15/2023 16:05:47 02/15/2023 18:14:27 Pending Labs Complete 02/15/2023 16:12:20 02/15/2023 16:12:20 02/15/2023 16:12:29 Lab Complete 02/15/2023 16:12:20 02/15/2023 16:12:20 02/15/2023 16:12:29 Meds Admin Complete 02/15/2023 18:24:38 02/15/2023 18:37:54 Discharge Complete 02/15/2023 18:26:35 02/15/2023 18:47:54 02/15/2023 18:47:54 Pending Labs Complete 02/15/2023 18:35:04 02/15/2023 18:35:04 02/15/2023 18:35:04 Pending Labs Complete 02/15/2023 18:35:12 02/15/2023 18:35:12 02/15/2023 18:35:13 Transfer Complete 02/15/2023 18:47:54 02/15/2023 18:47:54 02/15/2023 18:47:54 ADDRESS: [address] [place] [phone] PHYS DOC NOTES: MEDICAL INFORMATION: Prescriptions Given: New Medications [facility]/pharmacy #[id number], [address], [place] [id number], [phone] dicyclomine (Bentyl 10 mg Cap) 1 Capsules By Mouth 4 times a day for 2 Days. Refills: 0. Medications to Continue with No Changes Other Medications diltiazem (diltiazem 120 mg oral capsule, extended release) 1 Capsules By Mouth every day for 30 Days. Refills: 2. Misc Prescription ([facility] ASPIRIN EC 81 MG TABLET) 0. naproxen (Naprosyn 500 mg Tab) 1 Tablets By Mouth 2 times a day as needed for pain. Refills: 0. ondansetron (Zofran ODT 4 mg Tab-Dis) 1 Tablets By Mouth 3 times a day. Refills: 0. sertraline (sertraline 25 mg Tab) 1 Tablets By Mouth every day. Refills: 2. PATIENT EDUCATION INFORMATION: Instructions: Potassium Content of Foods; Hypokalemia; Diarrhea, Adult, Pizu-re-Zqhv Follow up: With: Address: When: Tomasa GAY, Will Rice, [facility], [facility] In 3 days 02/18/2023 DIAGNOSIS: 1:Diarrhea; 2:Hypokalemia Normal [facility] ED Note-Nursingon 02-15-2023 ED Note-Nursing Patient does not wan t IV at this time Normal [facility] ED Patient Education Noteon 02-15-2023 ED Patient Education Note Gastroenterology Hypokalemia Hypokalemia means that the amount of [...] causes? This condition may be caused by: ? Antibiotic medicine. ? Diarrhea or vomiting. Taking too much of a medicine that helps you have a bowel movement (laxative) can cause diarrhea and lead to hypokalemia. ? Chronic kidney disease (CKD). ? Medicines that help the body get rid of excess fluid (diuretics). ? Eating disorders, such as anorexia or bulimia. ? Low magnesium levels in the body. ? Sweating a lot. What are the signs or symptoms? Symptoms of this condition include: ? Weakness. ? Constipation. ? Fatigue. ? Muscle cramps. ? Mental confusion. ? Skipped heartbeats or irregular heartbeat (palpitations). ? Tingling or numbness. How is this diagnosed? This condition is diagnosed with a blood test. How is this treated? This condition may be treated by: ? Taking potassium supplements. ? Adjusting the medicines that you take. ? Eating more foods that contain a lot of potassium. If your potassium level is very low, you may need to get potassium through an IV and be monitored in the hospital. Follow these instructions at home: Eating and drinking ? Eat a healthy diet. A healthy diet includes fresh fruits and vegetables, whole grains, healthy fats, and lean proteins. ? If told, eat more foods that contain a lot of potassium. These include: ? Nuts, such as peanuts and pistachios. ? Seeds, such as sunflower seeds and pumpkin seeds. ? Peas, lentils, and singletary beans. ? Whole grain and bran cereals and breads. ? Fresh fruits and vegetables, such as apricots, avocado, bananas, cantaloupe, kiwi, oranges, tomatoes, asparagus, and potatoes. ? Juices, such as orange, tomato, and prune. ? Lean meats, including fish. ? Milk and milk products, such as yogurt. General instructions ? Take afvg-mwn-cddpgen and prescription medicines only as told by your health care provider. This includes vitamins, natural food products, and supplements. ? Keep all follow-up visits. This is important. Contact a health care provider if: ? You have weakness that gets worse. ? You feel your heart pounding or racing. ? You vomit. ? You have diarrhea. ? You have diabetes and you have trouble keeping your blood sugar in your target range. Get help right away if: ? You have chest pain. ? You have shortness of breath. ? You have vomiting or diarrhea that lasts for more than 2 days. ? You faint. These symptoms may be an emergency. Get help right away. Call 911. ? Do not wait to see if the symptoms will go away. ? Do not drive yourself to the hospital. Summary ? Hypokalemia means that the amount of potassium in the blood is lower than normal. ? This condition is diagnosed with a blood test. ? Hypokalemia may be treated by taking potassium supplements, adjusting the medicines that you take, or eating more foods that are high in potassium. ? If your potassium level is very low, you may need to get potassium through an IV and be monitored in the hospital. This information is not intended to replace advice given to you by your health care provider. Make sure you discuss any questions you have with your health care provider. Document Revised: 11/05/2021 Document Reviewed: 11/05/2021 [employer] Patient Education ? 2022 [employer]. Infectious Disease Diarrhea, Adult Diarrhea is when you pass loose and watery poop (stool) often. Diarrhea can make you feel weak and cause you to lose water in your body (get dehydrated). Losing water in your body can cause you to: ? Feel tired and thirsty. ? Have a dry mouth. ? Go pee (urinate) less often. Diarrhea often lasts 2?3 days. However, it can last longer if it is a sign of something more serious. It is important to treat your diarrhea as told by your doctor. Follow these instructions at home: Eating and drinking Follow these instructions as told by your doctor: ? Take an ORS (oral rehydration solution). This is a drink that helps you replace fluids and minerals your body lost. It is sold at pharmacies and stores. ? Drink plenty of fluids, such as: ? Water. ? Ice chips. ? Diluted fruit juice. ? Low-calorie sports drinks. ? Milk, if you want. ? Avoid drinking fluids that have a lot of sugar or caffeine in them. ? Eat bland, lznf-fb-btwmxm foods in small amounts as you are able. These foods include: ? Bananas. ? Applesauce. ? Rice. (more content not included)... Normal [facility] ED Patient Summaryon 023 ED Patient Summary [place] [id number] Patient Discharge Instructions Person Information Name: KASSIE DIALLO Age: 27 Years Arrival Date: 02/15/2023 15:28:36 Discharge Diagnosis: 1:Diarrhea; 2:Hypokalemia Primary Care Physician: Will Mora Provider Information Primary Provider: Nicolas Izquierdo DO Advanced Professor Of Psychiatry:None The exam and treatment you received in the Emergency Department were for an urgent problem and are not intended as complete care. It is important that you follow up with a doctor, nurse practitioner, or physician?s promotions assistant sales marketing for ongoing care. If your symptoms become worse or you do not improve as expected and you are unable to reach your usual health care provider, you should return to the Emergency Department. We are available 24 hours a day. KASSIE DIALLO has been given the following list of patient education materials, prescriptions and follow-up instructions: Follow-up Instructions: With: Address: When: Will Mora, [facility] In 3 days 02/18/2023 In the event that this physician does not participate in your insurance network, please consult with your insurance company to find a nearby participating provider. Patient Education Materials: Potassium Content of Foods; Hypokalemia; Diarrhea, Adult, Pbpd-sm-Qyxk A MESSAGE TO ALL PATIENTS REGARDING OPIOIDS PRESCRIPTION OPIOIDS: WHAT YOU NEED TO KNOW Prescription opioids can be used to help relieve czphibjw-ee-irhdfw pain and are often prescribed following a surgery or injury, or for certain health conditions. These medications can be an important part of the treatment but also come with serious risks. It is important to work with your healthcare provider to make sure you are getting the safest, most effective care. WHAT ARE THE RISKS AND SIDE EFFECTS OF OPIOID USE? Prescription opioids carry serious risks of addiction and overdose, especially with prolonged use. An opioid overdose, often marked by slowed breathing, can cause sudden . The use of prescription opioids can have a number of side effects as well, even when taken as directed: ? Tolerance?meaning you might need to take more of the medication for the same pain relief ? Physical dependence?meaning you have symptoms of withdrawal when a medication is stopped ? Increased sensitivity to pain ? Constipation ? Nausea, vomiting, and dry mouth ? Sleepiness and dizziness ? Confusion ? Depression ? Low levels of testosterone that can result in lower sex drive, energy, and strength ? Itching and sweating RISKS ARE GREATER WITH: ? History of drug misuse, substance use disorder, or overdose ? Mental health conditions (such as depression or anxiety) ? Sleep apnea ? Older age (65 years and older) ? Avoid alcohol while taking prescription opioids. Also, unless specifically advised by your health care provider, medications to avoid include: ? Benzodiazepines (such as Xanax or Valium) ? Muscle relaxants (such as Soma or Flexeril) ? Hypnotics (such as Ambien or Lunesta) ? Other prescription opioids KNOW YOUR OPTIONS Talk to your health care provider about ways to manage your pain that don?t involve prescription opioids. Some of these options may actually work better and have fewer risks and side effects. Options may include: ? Pain relievers such as acetaminophen, ibuprofen, and naproxen ? Some medication that are also used for depression or seizures ? Physical therapy and exercise ? Cognitive behavioral therapy, a psychological, goal-directed approach, in which patients learn how to modify physical, behavioral, and emotional triggers of pain and stress. IF YOU ARE PRESCRIBED OPIOIDS FOR PAIN: ? Never take opioids in greater amounts or more often than prescribed. ? Follow up with your primary health care provider. o Work together to create a plan on how to manage your pain. o Talk about ways to help manage your pain that don?t involve prescription opioids. o Talk about any and all concerns and side effects. ? Help prevent misuse and abuse o Never sell or share prescription opioids. o Never use another person?s prescription opioids. ? Store prescription opioids in a secure place and out of reach of others (this may include visitors, children, friends, and family). ? Safely dispose of unused prescription opioids: Find your community drug take-back program or your pharmacy mail-back program, or flush them down the toilet, following guidance from the Food and Drug Administration (www.fda.gov/Drugs/Re sourcesForYou). ? Visit www.cdc.gov/drugoverd ose to learn about the risks of opioids abuse and overdose. ? If you believe you may be struggling with addiction, tell your health career and guidance counselor and ask for guidance or call [facility]?S National Helpline at 6-928-073-BYCH. d S (more content not included)... Normal [facility] Fecal WBC Lactoferrinon 02-04 Lactoferrin Ql (Stl) Negative Normal Negative Fish [facility] Comment on above: Result Comment: The semi-quantitative detection of elevated levels of fecal lactoferrin is a marker for fecal leukocytes and an indication of intestinal inflammation. Performed By: #### 4 [id number], [id number], [id number], [id number] ####[facility] [address] [place] [address] HEMATOLOGYOrdered By: SYSTEM SYSTEM on 02-15-2023 Basophils/100 WBC (Bld) 0.8 % Normal 0.0 - 2.0 % [facility] HemeAutoSS Basophils/Leukocytes Auto (Bld) [Pure # fraction] 0.0 E9/L Normal 0.0 - 0.2 E9/L [facility] Eosinophils/100 WBC (Bld) 2.2 % Normal 0.0 - 8.0 % [facility]Auto[facility] Eosinophils/Leukocytes Auto (Bld) [Pure # fraction] 0.1 E9/L Normal 0.0 - 0.5 E9/L [facility] Lymphocytes/100 WBC (Bld) 31.6 % Normal 14.0 - 50.0 % [facility] Lymphocytes/Leukocytes Auto (Bld) [Pure # fraction] 1.7 E9/L Normal 1.0 - 4.0 E9/L [facility] Monocytes/100 WBC (Bld) 7.8 % Normal 4.0 - 14.0 % [facility]eAuto[facility] Monocytes/Leukocytes Auto (Bld) [Pure # fraction] 0.4 E9/L Normal 0.2 - 1.0 E9/L [facility] Neutrophils/100 WBC (Bld) 57.6 % Normal 36.0 - 75.0 % [facility]eAutoSS Neutrophils/Leukocytes Auto (Bld) [Pure # fraction] 3.2 E9/L Normal 2.0 - 7.5 E9/L [facility] HemeAutoSS HEMATOLOGYOrdered By: Deirdre Oates on 02-15-2023 Erythrocyte distribution width (RBC) [Ratio] 12.9 % Normal 10.9 - 14.2 % [facility]eAutoSS Hematocrit (Bld) [Volume fraction] 36.3 % Normal 34.0 - 46.0 % [facility] Hemoglobin (Bld) [Mass/Vol] 12.3 g/dL Normal 12.0 - 16.0 gm/dL [facility] MCH (RBC) [Entitic mass] 29.2 pg Normal 27.0 - 34.0 pg [facility] MCHC (RBC) [Mass/Vol] 34.0 g/dL Normal 31.4 - 36.0 gm/dL [facility] MCV (RBC) [Entitic vol] 85.8 fL Normal 80.0 - 100.0 fL [facility] Platelet mean volume (Bld) [Entitic vol] 8.3 fL Normal 6.4 - 10.8 fL [facility] Platelets (Bld) [#/Vol] 246.0 E9/L Normal 150.0 - 500.0 E9/L [facility] RBC (Bld) [#/Vol] 4.2 E12/L Low 4.3 - 5.9 E12/L [facility] WBC corrected for nucl RBC Auto (Bld) [#/Vol] 5.5 E9/L Normal 4.0 - 11.0 E9/L [facility] HemeAutoSS Lipase Levelon 02-15-2023 Lipase Lvl 39 unit/L Normal 13-58 [facility] Comment on above: Performed By: #### 2 [id number], [id number], [id number], [id number], [id number], [id number], [id number] #### [facility] [address] [place] [address] MICRO OTHER TESTSOrdered By: Lulu Willis on 02-15-2023 Lactoferrin Ql (Stl) Negative 1 (02/15/23 5:19 PM) Normal Negative [facility] Man Sero Comment on above: Interpretive Data: Trent menjivar semi-quantitative detection of elevated levels of fecal lactoferrin is a marker for fecal leukocytes and an indication of intestinal inflammation. Magnesiumon 02-15-2023 Magnesium [Mass/Vol] 1.8 mg/dL Normal 1.3-2.4 Fish [facility] Comment on above: Performed By: #### 2 [id number], [id number], [id number], 8057605, 0934090, 8959306, [id number] #### [facility] [address] [place] [address] SEROLOGYOrdered By: Jordy Leiva on 02-15-2023 HCG.beta subunit (U) [Moles/Vol] Negative Normal [facility] Man Sero U BetaHcg Qualon 02-15-2023 HCG.beta subunit (U) [Moles/Vol] Negative Normal [facility] Comment on above: Performed By: #### 2 [id number], [id number] ####[facility] [address] [place] [address] UA With Cult Reflexon 2022 Bilirubin Ql (U) Negative Normal Negative [facility] Comment on above: Performed By: #### 2 [id number], [id number] ####[facility] [address] [place] [id number] Calcium oxalate crystals LM Ql (Urine sed) Present Normal [facility] Comment on above: Performed By: #### 2 [id number], [id number] ####[facility] [address] [place] [address] Clarity (U) SL CLOUDY Abnormal Clear [facility] Comment on above: Performed By: #### 2 [id number], [id number] ####[facility] [address] [place] [address] Color (U) YELLOW Normal Yellow [facility] Comment on above: Performed By: #### 2 [id number], [id number] ####[facility] [address] [place] [address] Epithelial cells.squamous LM.HPF (Urine sed) [#/Area] 0-2 Normal 0-2 [facility] Comment on above: Performed By: #### 2 [id number], [id number] ####[facility] [address] [place] [address] Glucose Test strip (U) [Mass/Vol] Negative Normal Negative [facility] Comment on above: Performed By: #### 2 [id number], [id number] ####[facility] [address] [place] [address] Hemoglobin Ql (U) Negative Normal Negative [facility] Comment on above: Performed By: #### 2 1627329, [id number] ####[facility] [address] [place] [address] Ketones (U) [Mass/Vol] TRACE Abnormal Negative [facility] Comment on above: Performed By: #### 2 6349414, [id number] ####[facility] [address] [place] [address] [place].plasma/[place] .RBC (Bld) [Mass ratio] 0-3 Normal 0-3 [facility] Comment on above: Performed By: #### 2 [id number], [id number] ####[facility] [address] [place] [address] Mucus Ql (Urine sed) 2+ Normal [facility] Comment on above: Performed By: #### 2 8521477, [id number] ####[facility] [address] [place] [address] Nitrite Ql (U) Negative Normal Negative [facility] Comment on above: Performed By: #### 2 8395109, [id number] ####[facility] [address] [place] [address] pH (U) 6.0 [pH] Invalid Interpretation Code 5.0-9.0 [facility] Comment on above: Performed By: #### 2 [id number], [id number] ####[facility] [address] [place] [address] Protein (U) [Mass/Vol] Negative Normal Negative [facility] Comment on above: Performed By: #### 2 5335917, [id number] ####[facility] [address] [place] [address] Specific gravity (U) [Rel density] 1.025 Invalid Interpretation Code 1.005-1.030 [facility] Comment on above: Performed By: #### 2 1063907, [id number] ####[place] [id number] Type of Urine collection method Clean Catch Normal [facility] Comment on above: Performed By: #### 2 [id number], [id number] ####[place] [address] [place] [address] Urobilinogen Qn (U) 1.0 {Ladonna'U}/dL Normal 0.0-1.0 [facility] Comment on above: Performed By: #### 2 5751755, [id number] ####[place] [address] WBC Auto Ql (U) Negative Normal Negative [facility] Comment on above: Performed By: #### 2 5588635, [id number] ####[facility] [address] [place], [place] [address] WBC LM.HPF (Urine sed) [#/Area] 0-5 Normal 0-5 [facility] Comment on above: Performed By: #### 2 [id number], [id number] ####[place] [id number] URINALYSISOrdered By: Isa Leiva on 02-15-2023 Bilirubin [...] Interpretation Code Negative [facility] UA Auto SS [place].plasma/[place] .RBC (Bld) [Mass ratio] 0-3 /HPF Normal 0-3/HPF [...] [facility] UA Auto SS Urobilinogen Qn (U) 1.9770468 {Ladonna'U}/dL Normal 0.0 - 1.0 EU/dL [facility] UA Auto SS WBC Auto Ql (U) Negative (02/15/23 4:13 PM) Normal Negative [facility] UA Auto SS WBC LM.HPF (Urine sed) [#/Area] 0-5 /HPF Normal 0-5/HPF [facility] UA Auto SS eGFRon 02-15-2023 GFR/1.73 sq M.predicted among non-blacks MDRD (S/P/Bld) [Vol rate/Area] mL/min/{1.73_m2} Normal >=59 [facility] Comment on above: Order Comment: Order added by Discern Expert. Performed By: #### 2 [id number], [id number], 5717780, 7310634, 7668103, 4017460, [id number] #### [facility] [address] [place] [address] Consent for Treatmenton 02-04 Consent for Treatment [id number] .00TIFF Normal [facility] Heart and Vascular Office/Cl inic Noteon 02-14-2023 Heart and Vascular Office/Clinic Note History of Present Illness Patient is a very pleasant 27-year-old nondiabetic female referred to our office to establish care for palpitations and abnormal EKG and anxiety. She has 2 small children with her today making her visit somewhat challenging. Patient states that she went to get her back adjusted at a chiropractor and ever since then has had chest pain symptoms radiating into her back. This was so bad she went to the emergency room was recently admitted to the hospital. In addition she complained of face numbness. She underwent a Holter monitor which was unremarkable except for rare PACs and PVCs. All of her chest pain was unremarkable on the Holter. She was recently restarted back on fluoxetine but this is causing her fatigue, tiredness, and decreased libido. Patient states she can walk on a treadmill. Is currently being worked up for gallbladder disease as well. Patient underwent pediatric echocardiogram on 07/12/2012 with the following results: (07/12/2012 14:41 EDT [facility] Pediatric Echo Transthoracic Complete) SUMMARY/CONCLUSION: Normal echocardiogram. [1] Patient underwent Holter monitor on 12/03/2022 with the following results: CONCLUSIONS: 1. Unremarkable 48-hour Holter monitor. The patient had rare premature atrial contractions and premature ventricular contractions noted. 2. No evidence of atrial fibrillation, supraventricular tachycardia, pauses or ventricular tachycardia. 3. The patient had several entries of substernal chest pain all of which corresponded to normal sinus rhythm. 4. Recommend clinical correlation or alternative mode of testing if clinically indicated. Ultrasound of gallbladder dated 12/16/2022 is as below: (12/16/2022 10:58 EDT US Gallbladder) IMPRESSION: NEGATIVE ULTRASOUND OF THE LIVER AND GALLBLADDER. [2] Patient is now here in follow-up. His echo was denied. Patient did not start taking her diltiazem as she has a history of anxiety and wanted her anxiety medicines adjusted first before taking and any else. Her symptoms are predominantly at night when she goes to bed and she feels her heart racing on occasion. In our office today her blood pressure was 102/60 and pulse is 67 and regular. Physical exam is as below. Lipids dated 11/02/2022 show an HDL of 36 and an LDL of 103. EKG dated 12/16/2022 shows normal sinus rhythm, normal axis, normal intervals, incomplete right bundle branch block, no previous myocardial infarction noted. TSH is normal. Review of Systems Constitutional: no fever, no chills, no weakness, no fatigue Respiratory: no shortness of breath, no cough, no orthopnea, no wheezing Cardiovascular: no chest pain, no palpitations, no edema Neuro: no dizziness no light headed no syncope Additional ROS info: Except as noted in the above Review of Systems and in the History of Present Illness all other systems have been reviewed and are negative or noncontributory. Physical Exam General: alert, no acute distress Neck: Supple, noJVD nocarotid bruit Cardiovascular: regular rate and rhythm, no murmur normal peripheral perfusion Respiratory: Lungs CTA, respirations non labored Extremities: no edema Neurological: oriented x 4, LOC appropriate for age, sensation equal & normal bilaterally, speech normal Skin: Warm, dry, intact- no rash or concerning lesions Assessment/Plan 1. Palpitations: The patient continues to experience intermittent palpitations particularly at night. She did not start her calcium channel maude and she is best I can tell is on no beta-maude. Her neurologist suggested perhaps an tilt table study although she has had no presyncope or syncope. I advised her to stay away from caffeine and alcohol products as well as lack of sleep and psychosocial stress. We did not really get a diagnosis other than PACs and PVCs on her 48-hour Holter monitor. Recommend a 30-day event monitor to differentiate and diagnose any additional arrhythmias. We will hold off on starting Cardizem until we get a diagnosis. 2. Return to office Dr. Flores in 1 month. Follow-up No qualifying data available Problem List/Past Medical History Ongoing Abdominal pain Abnormal EKG Amenorrhea, secondary Anxiety Bacterial conjunctivitis of right eye Bipolar 1 disorder, mixed, moderate Bipolar disorder Cellulitis, leg Cervical sprain Cervical strain Chronic abdominal pain Depression Heart palpitations Migraines Neck muscle strain Pelvic pain Peroneal neuritis PTSD (post-traumatic stress disorder) Right hand pain Right upper quadrant pain Screening for cardiovascular condition Screening for thyroid disorder Smoker Vulvovaginitis Historical Depression Laceration of kidney without open wound into abdominal cavity orthostatic fainting Pseudoseizures Suicidal ideation Procedure/Surgical History Betamethasone (02/01/2017), Betamethasone (01/31/2017), lacerated Kidney (2007), Right Hand Surgery. Medications [facility] ASPIRIN EC 81 (more content not included)... Normal [facility] Comment on above: Result Comment: Elec tronically Signed By: MARK GAMBLE, Huang Tejada.br\Date and Time Signed: 02/14/23 12:01 EST Physician Orderon 02-14-2023 Physician Order [id number] .00TIFF Normal [facility] Auto Diffon 02-10-2023 Basophils/100 WBC (Bld) 0.4 % Normal 0.0-2.0 [facility] Comment on above: Order Comment: Order Added by Discern Expert. Performed By: #### 2 600293, 25411112, 5312853, 0087349, 1676301, 7494820, 97078937 #### [facility] [address] [place] [address] Basophils/Leukocytes Auto (Bld) [Pure # fraction] 0.1 E9/L Normal 0.0-0.2 [facility] Comment on above: Order Comment: Order Added by Discern Expert. Performed By: #### 2 858633, 95348180, 6413946, 1056642, 7254457, 2462944, 24380987 #### [facility] [address] [place] [address] Eosinophils/100 WBC (Bld) 0.7 % Normal 0.0-8.0 [facility] Comment on above: Order Comment: Order Added by Discern Expert. Performed By: #### 2 176627, 07430706, 2179500, 4886866, 8887454, 3591062, 09618230 #### [facility] [address] [place] [address] Eosinophils/Leukocytes Auto (Bld) [Pure # fraction] 0.1 E9/L Normal 0.0-0.5 [facility] Comment on above: Order Comment: Order Added by Discern Expert. Performed By: #### 2 856027, 60067263, 6661062, 6228605, 0185298, 9356585, 85171587 #### [facility] [address] [place] [address] Lymphocytes/100 WBC (Bld) 7.9 % Low 14.0-50.0 [facility] Comment on above: Order Comment: Order Added by Discern Expert. Performed By: #### 2 235499, 63868010, 1894330, 8831159, 3255407, 0384348, 99083627 #### [facility] [address] [place] [address] Lymphocytes/Leukocytes Auto (Bld) [Pure # fraction] 1.1 E9/L Normal 1.0-4.0 [facility] Comment on above: Order Comment: Order Added by Discern Expert. Performed By: #### 2 082222, 01678378, 7072001, 7837314, 7967454, 5323360, 54477670 #### [facility] [address] [place] [address] Monocytes/100 WBC (Bld) 7.1 % Normal 4.0-14.0 [facility] Comment on above: Order Comment: Order Added by Raúl Expert. Performed By: #### 2 524931, 57332729, 2190210, 8720864, 9033156, 7039546, 94975510 #### [facility] [address] [place] [address] Monocytes/Leukocytes Auto (Bld) [Pure # fraction] 1.0 E9/L Normal 0.2-1.0 [facility] Comment on above: Order Comment: Order Added by Raúl Expert. Performed By: #### 2 791494, 89228073, 7575137, 0115243, 1419023, 2184398, 05335923 #### [facility] [address] [place] [address] Neutrophils/100 WBC (Bld) 83.9 % High 36.0-75.0 [facility] Comment on above: Order Comment: Order Added by Discern Expert. Performed By: #### 2 278818, 97365251, 7006738, 1548854, 7596821, 0843863, 19248015 #### [facility] [address] [place] [address] Neutrophils/Leukocytes Auto (Bld) [Pure # fraction] 11.4 E9/L High 2.0-7.5 [facility] Comment on above: Order Comment: Order Added by Discern Expert. Performed By: #### 2 382416, 78026857, 4997925, 3714600, 6061579, 9365850, 06447896 #### [facility] [address] [place] [address] B hCG Qualon 02-10-2023 Beta HCG ( test) Ql Negative Normal [facility] Comment on above: Performed By: #### 2 117048, 77100270, 7753395, 7382943, 0277131, 3639790, 12059993 #### [facility] [address] [place] [address] BMPon 02-10-2023 Creatinine [Mass/Vol] 0.8 mg/dL Normal 0.5-1.3 [facility] Comment on above: Performed By: #### 2 633857, 17762852, 7073246, 6964167, 6033490, 7629914, 38315183 #### [facility] [address] [place] [address] Urea nitrogen [Mass/Vol] 17 mg/dL Normal 5-21 [facility] Comment on above: Performed By: #### 2 303499, 95173947, 9909970, 2460307, 3680866, 6189650, 78896597 #### [facility] [address] [place] [address] Urea nitrogen/Creatinine [Mass ratio] 21 No Units High 10-20 [facility] Comment on above: Performed By: #### 2 312303, 92297847, 4138216, 3942546, 9405583, 7363747, 58109680 #### [facility] [address] [place] [address] Anion gap [Moles/Vol] 13 mmol/L Normal 6-16 [facility] Comment on above: Performed By: #### 2 156061, 74858159, 3311273, 8192141, 2520695, 0419641, 24822144 #### [facility] [address] [place] [address] Calcium [Mass/Vol] 9.5 mg/dL Normal 8.9-11.1 [facility] Comment on above: Performed By: #### 2 451274, 44416058, 5094037, 9803156, 7722970, 2537815, 16002288 #### [facility] [address] [place] [address] Chloride [Moles/Vol] 111 mmol/L Normal 101-111 [facility] Comment on above: Performed By: #### 2 774730, 54161034, 2612919, 3927318, 4820873, 6785939, 30886519 #### [facility] [address] [place] [address] CO2 [Moles/Vol] 20 mmol/L Low 21-31 [facility] Comment on above: Performed By: #### 2 434469, 62367341, 5212153, 4101201, 7333425, 8648111, 32065148 #### [facility] [address] [place] [address] Glucose [Mass/Vol] 103 mg/dL Normal 55-199 [facility] Comment on above: Result Comment: If t his glucose result represents a fasting glucose, interpretation should refer to the following reference range: 55-99 mg/dL Performed By: #### 2 446290, 82028760, 5585720, 5729275, 8467709, 2873651, 14529884 #### [facility] [address] [place] [address] Potassium [Moles/Vol] 3.9 mmol/L Normal 3.5-5.3 [facility] Comment on above: Performed By: #### 2 507004, 16678743, 5248742, 3820312, 5128298, 0182903, 66834453 #### [facility] [address] [place] [address] Sodium [Moles/Vol] 140 mmol/L Normal 135-145 [facility] Comment on above: Performed By: #### 2 125667, 96641569, 6040766, 4966785, 3139414, 4461914, 76432024 #### [facility] [address] [place] [address] CBC w/ Auto Diffon 3 Erythrocyte distribution width (RBC) [Ratio] 12.8 % Normal 10.9-14.2 [facility] Comment on above: Performed By: #### 2 385022, 65029192, 2965836, 0109791, 2009083, 3835422, 84291256 #### [facility] [address] [place] [address] Hematocrit (Bld) [Volume fraction] 43.4 % Normal 34.0-46.0 [facility] Comment on above: Performed By: #### 2 068813, 71832145, 7875762, 6032323, 9333668, 1287848, 89665398 #### [facility] [address] [place] [address] Hemoglobin (Bld) [Mass/Vol] 14.3 g/dL Normal 12.0-16.0 [facility] Comment on above: Performed By: #### 2 367224, 56545467, 2866246, 0178567, 4522538, 2243613, 62295431 #### [facility] [address] [place] [address] MCH (RBC) [Entitic mass] 28.8 pg Normal 27.0-34.0 [facility] Comment on above: Performed By: #### 2 972916, 46059382, 1619195, 9002604, 5890867, 7952724, 59521535 #### [facility] [address] [place] [address] MCHC (RBC) [Mass/Vol] 32.9 g/dL Normal 31.4-36.0 [facility] Comment on above: Performed By: #### 2 413752, 30853887, 0634532, 2193950, 5379757, 4977051, 68677354 #### [facility] [address] [place] [address] MCV (RBC) [Entitic vol] 87.5 fL Normal 80.0-100.0 [facility] Comment on above: Performed By: #### 2 562537, 36820716, 5590532, 1200173, 3658766, 5312659, 38633312 #### [facility] [address] [place], [place] [address] Platelet mean volume (Bld) [Entitic vol] 8.9 fL Normal 6.4-10.8 [facility] Comment on above: Performed By: #### 2 791039, 78189695, 4340283, 8935090, 8874371, 8060631, 04719971 #### [facility] [address] [place] [address] Platelets (Bld) [#/Vol] 247.0 E9/L Normal 150.0-500.0 [facility] Comment on above: Performed By: #### 2 721404, 48990627, 5265196, 1682425, 6238444, 2811360, 45552952 #### [facility] [address] [place] [address] RBC (Bld) [#/Vol] 5.0 E12/L Normal 4.3-5.9 [facility] Comment on above: Performed By: #### 2 890733, 25631262, 7522142, 3743450, 9311449, 5386309, 02008950 #### [facility] [address] [place], [place] [address] WBC corrected for nucl RBC Auto (Bld) [#/Vol] 13.7 E9/L High 4.0-11.0 [facility] Comment on above: Performed By: #### 2 639632, 67014385, 7086054, 8890724, 5156875, 7384501, 57708476 #### [facility] [address] [place] [address] CHEMISTRYOrdered By: SYSTEM SYSTEM on 02-10-2023 Albumin [...] 103 mL/min/1.73 m2 Normal >=59mL/min/1 .73 m2 [facility] Chem S Comment on above: Interpretive Data: C hronic kidney disease could be indicated at eGFR's of less than 60 mL/min/1.73m2. Kidney failure is indicated at less than 15 mL/min/1.73m2. Globulin (S) [Mass/Vol] 3.0 g/dL Normal 1.4 - 4.0 gm/dL FT Remisol Glucose [Mass/Vol] 103 mg/dL Normal 55 - 199 mg/dL [facility] Remisol Comment on above: Interpretive Data: I f this glucose result represents a fasting glucose, interpretation should refer to the following reference range: 55-99 mg/dL Lipase [Catalytic activity/Vol] 36 U/L Normal 13 - 58 unit/L [facility] Remisol Potassium [Moles/Vol] 3.9 mmol/L Normal 3.5 - 5.3 mmol/L FT Remisol Protein [Mass/Vol] 7.4 g/dL Normal 6.0 - 7.8 gm/dL FT Remisol Sodium [Moles/Vol] 140 mmol/L Normal 135 - 145 mmol/L [facility] Remisol Urea nitrogen [Mass/Vol] 17 mg/dL Normal 5 - 21 mg/dL [facility] Remisol Urea nitrogen/Creatinine [Mass ratio] 21 mg/mg High 10 - 20 FT Remisol Consent for Treatmenton Consent for Treatment [id number]# 1.00TIFF Normal [facility] Discharge Instructionson Discharge Instructions 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 L Marital Status: Phone: [phone] Visit Id: Visit Reason: Diarrhea; Vomiting; Nausea; N/V Speciality: Acuity: 3 Enc Type: Emergency Med Service: Emergency Arrival: 02/10/2023 11:48:20 Discharge: 02/10/2023 13:23:02 LOS: 000 01:35 Checkin: 02/10/2023 11:48:20 Checkout: 02/10/2023 13:23:02 Dispo Type: Home (Routine DC) EVENTS: Event Name Event Status Request Date/Time Start Date/Time Complete Date/Time Arrive Complete 02/10/2023 11:48:20 02/10/2023 11:48:20 02/10/2023 11:48:20 Document Home Meds Request 02/10/2023 11:48:20 Triage Complete 02/10/2023 11:48:20 02/10/2023 12:01:22 02/10/2023 12:01:22 Bed Assign Complete 02/10/2023 11:51:38 02/10/2023 11:51:38 02/10/2023 11:51:38 Dr Exam Complete 02/10/2023 11:51:38 02/10/2023 11:53:44 02/10/2023 11:53:44 RN Exam Complete 02/10/2023 11:51:38 02/10/2023 12:03:23 02/10/2023 12:03:23 Registration Complete 02/10/2023 11:53:44 02/10/2023 12:20:04 02/10/2023 12:20:04 EKG Complete 02/10/2023 11:54:40 02/10/2023 12:09:18 Meds Admin Complete 02/10/2023 11:54:40 02/10/2023 12:54:42 Pending Labs Request 02/10/2023 11:54:40 Lab Request 02/10/2023 11:54:40 Urine Collect Request 02/10/2023 11:54:40 Dr Exam Complete 02/10/2023 12:02:57 02/10/2023 12:02:57 02/10/2023 12:02:57 Pending Labs Complete 02/10/2023 12:03:57 02/10/2023 12:03:57 02/10/2023 12:43:03 Lab Complete 02/10/2023 12:03:57 02/10/2023 12:03:57 02/10/2023 12:43:03 Pending Labs Complete 02/10/2023 12:04:14 02/10/2023 12:04:14 02/10/2023 12:04:14 Pending Labs Complete 02/10/2023 12:13:59 02/10/2023 12:13:59 02/10/2023 12:14:09 Lab Complete 02/10/2023 12:13:59 02/10/2023 12:13:59 02/10/2023 12:14:09 Reg Complete Request 02/10/2023 12:20:04 Reg Bed Request Complete 02/10/2023 12:20:04 02/10/2023 12:20:04 02/10/2023 12:20:04 Discharge Complete 02/10/2023 13:10:26 02/10/2023 13:23:09 02/10/2023 13:23:09 Transfer Complete 02/10/2023 13:23:09 02/10/2023 13:23:09 02/10/2023 13:23:09 ADDRESS: [address] [place] [phone] PHYS DOC NOTES: MEDICAL INFORMATION: Prescriptions Given: New Medications [facility]/pharmacy #[id number], [address], [place] [id number], [phone] ondansetron (Zofran ODT 4 mg Tab-Dis) 1 Tablets By Mouth 3 times a day. Refills: 0. Medications to Continue with No Changes Other Medications diltiazem (diltiazem 120 mg oral capsule, extended release) 1 Capsules By Mouth every day for 30 Days. Refills: [facility]. [facility] ([facility] ASPIRIN EC 81 MG TABLET) 0. naproxen (Naprosyn 500 mg Tab) 1 Tablets By Mouth 2 times a day as needed for pain. Refills: 0. sertraline (sertraline 25 mg Tab) 1 Tablets By Mouth every day. Refills: 2. PATIENT EDUCATION INFORMATION: Instructions: Viral Gastroenteritis, Adult Follow up: With: Address: When: Will Hawthorne [address] [place] [address] Business (1) In 3 days 02/13/2023 DIAGNOSIS: Diarrhea, unspecified; Nausea vomiting and diarrhea Normal [facility] ED Note-Physicianon 02-11-20 ED Note-Physician Basic Information Time Seen: Rober Solorzano PA-C 02/10/2023 11:53 Chief Complaint Patient had tooth extracted yesterday, nausea vomiting today that started approx 8 am this morning. EMS called and initiated IV, gave 4 mg Zofran and 100 ml saline. Patient awake and alert History of Present Illness 27-year-old female comes to the ED for evaluation of nausea vomiting diarrhea. Symptoms started this morning. She states she had abdominal cramping with vomiting and diarrhea. She then became anxious and started hyperventilating. She describes carpal spasms. She presents via EMS who treated her with Zofran and upon arrival here she both appears and feels improved. She states her abdominal cramping has resolved. No acute chest pain or shortness of breath. Review of Systems A 10 point review of systems is negative except as noted above. Medical and Surgical History: Reviewed and noted Social history: Lives at home Tobacco: Denies Physical Exam Vitals & Measurements T: 36.5 ?C(Oral) HR: 79(Monitored) RR: 14 BP: 110/64 SpO2: 100% HT: 170 cm WT: 71.2 kg BMI: 24.64 Nurses notes and vital signs reviewed and patient is not hypoxic. General: The patient appears well and in no significant distress Patient is resting comfortably on the exam bed. Skin: Warm, dry, no pallor noted. Head: Atraumatic. Neck: No JVD. Eye: Normal conjunctiva. Ears, Nose, Mouth, and Throat: Moist mucous membranes Cardiovascular: Strong distal pulses. Chest wall: Respiratory: Respirations are nonlabored. Back: Normal range of motion, no CVA tenderness. Musculoskeletal: Normal ROM with no gross deformity. Gastrointestinal: Soft and nontender. Urological: Neurological: Awake and alert. No focal deficits. Follows commands. GCS 15. Psychiatric: Cooperative. Medical Decision Making Abdomen soft and nontender. Laboratory studies reviewed and noted. CO2 is 28 patient was treated with a liter of IV fluids. She has had no recurrence of vomiting or diarrhea. She is well-appearing. EKG without ischemic changes. She is discharged home with Zofran and given PCP follow-up. Patient was encouraged to return to the ED if symptoms worsen or change. Assessment/Plan Diarrhea, unspecified (R19.7: Diarrhea, unspecified) Nausea vomiting and diarrhea (R11.2: Nausea with vomiting, unspecified) Orders: ondansetron, 4 mg = 1 tab(s), Oral, TID, # 15 tab(s), Refills(s) 0, Pharmacy: [facility]/pharmacy #[id number], 170, cm, 02/10/23 12:01:00 EST, [...] Panel Lipase Level UA With Cult Reflex Medications Administered Given NS 1000 ml Bolus, 1000 mL, IV Disposition Plan Patient Discharge Condition Disposition: Discharged home Condition: Improved and stable Counseled: Patient and/or family were counseled to workup, results, treatment plan and follow-up recommendations Discharge Prescription List Prescriptions Zofran ODT 4 mg Tab-Dis, 4 mg= 1 tab(s), Oral, TID Follow-up With When Contact Information Will Hawthorne In 3 days 02/13/2023 [place] [address]- Business (1) Additional Instructions: Patient Education Viral Gastroenteritis, Adult Attestation Patient seen and evaluated by the physician promotions assistant sales marketing. Attending physician was present in the emergency department and supervised care. This visit was performed by both the physician and an APC. I performed all aspects of the MDM as documented. This report was transcribed using voice recognition software. Every effort was made to ensure accuracy, however, inadvertently computerized overhead foreman mistakes may be present. Appropriate healthcare PPE was used in evaluating this patient. The patient was placed in a mask. The healthcare provider was wearing mask, gloves, and utilizing proper hand hygiene. All equipment was properly cleansed. Problem List/Past Medical History Ongoing Abdominal pain Abnormal EKG Amenorrhea, secondary Anxiety Bacterial conjunctivitis of right eye Bipolar 1 disorder, mixed, moderate Bipolar disorder Cellulitis, leg Cervical sprain Cervical strain Chronic abdominal pain Depression Heart palpitations Migraines Neck muscle strain Pelvic pain Peroneal neuritis PTSD (post-traumatic stress disorder) Right hand pain Right upper quadrant pain Screening for cardiovascular condition Screening for thyroid disorder Smoker Vulvovaginitis Historical Depression Laceration of kidney without open wound into abdominal cavity orthostatic fainting Pseudoseizures Suicidal ideation Procedure/Surgical History Betamethas (more content not included)... Normal [facility] Comment on above: Result Comment: Elec tronically Signed By: Rober Solorzano PA-C\.br\Date and Time Signed: 02/10/23 13:22 EST\.br\Electronically Co-Signed By: Quintin Murcia DO\.br\Date and Time Co-Signed: 02/10/23 17:28 EST ED Patient Education Noteon 02-10-2023 ED Patient Education Note Gastroenterology Viral Gastroenteritis, Adult Viral gastroenteritis is also [...] people. You can also get sick by: ? Eating food, drinking water, or touching a surface contaminated with one of these viruses. ? Sharing utensils or other personal items with an infected person. What increases the risk? You are more likely to develop this condition if you: ? Have a weak body defense system (immune system). ? Live with one or more children who are younger than 2 years. ? Live in a intermediate. ? Travel on cruise ships. What are the signs or symptoms? Symptoms of this condition start suddenly 1?3 days after exposure to a virus. Symptoms may last for a few days or for as long as a week. Common symptoms include watery diarrhea and vomiting. Other symptoms include: ? Fever. ? Headache. ? Fatigue. ? Pain in the abdomen. ? Chills. ? Weakness. ? Nausea. ? Muscle aches. ? Loss of appetite. How is this diagnosed? This condition is diagnosed with a medical history and physical exam. You may also have a stool test to check for viruses or other infections. How is this treated? This condition typically goes away on its own. The focus of treatment is to prevent dehydration and restore lost fluids (rehydration). This condition may be treated with: ? An oral rehydration solution (ORS) to replace important salts and minerals (electrolytes) in your body. Take this if told by your health care provider. This is a drink that is sold at pharmacies and retail stores. ? Medicines to help with your symptoms. ? Probiotic supplements to reduce symptoms of diarrhea. ? Fluids given through an IV, if dehydration is severe. Older adults and people with other diseases or a weak immune system are at higher risk for dehydration. Follow these instructions at home: Eating and drinking ? Take an ORS as told by your health care provider. ? Drink clear fluids in small amounts as you are able. Clear fluids include: ? Water. ? Ice chips. ? Diluted fruit juice. ? Low-calorie sports drinks. ? Drink enough fluid to keep your urine pale yellow. ? Eat small amounts of healthy foods every 3?4 hours as you are able. This may include whole grains, fruits, vegetables, lean meats, and yogurt. ? Avoid fluids that contain a lot of sugar or caffeine, such as energy drinks, sports drinks, and soda. ? Avoid spicy or fatty foods. ? Avoid alcohol. General instructions ? Wash your hands often, especially after having diarrhea or vomiting. If soap and water are not available, use hand tobacco sizer. ? Make sure that all people in your household wash their hands well and often. ? Take xbzy-rtd-pjeeyec and prescription medicines only as told by your health care provider. ? Rest at home while you recover. ? Watch your condition for any changes. ? Take a warm bath to relieve any burning or pain from frequent diarrhea episodes. ? Keep all follow-up visits. This is important. Contact a health care provider if you: ? Cannot keep fluids down. ? Have symptoms that get worse. ? Have new symptoms. ? Feel light-headed or dizzy. ? Have muscle cramps. Get help right away if you: ? Have chest pain. ? Have trouble breathing or you are breathing very quickly. ? Have a fast heartbeat. ? Feel extremely weak or you faint. ? Have a severe headache, a stiff neck, or both. ? Have a rash. ? Have severe pain, cramping, or bloating in your abdomen. ? Have skin that feels cold and clammy. ? Feel confused. ? Have pain when you urinate. ? Have signs of dehydration, such as: ? Dark urine, very little urine, or no urine. ? Cracked lips. ? Dry mouth. ? Sunken eyes. ? Sleepiness. ? Weakness. ? Have signs of bleeding, such as: ? Seeing blood in your vomit. ? Having vomit that looks like coffee grounds. ? Having bloody or black stools or stools that look like tar. These symptoms may be an emergency. Get help right away. Call 911. ? Do not wait to see if the symptoms will go away. ? Do not drive yourself to the hospital. Summary ? V (more content not included)... Normal [facility] ED Patient Summaryon 023 ED Patient Summary [place] [address] Patient Discharge Instructions Person Information Name: KASSIE DIALLO Age: 27 Years Arrival Date: 02/10/2023 11:48:20 Discharge Diagnosis: Diarrhea, unspecified; Nausea vomiting and diarrhea Primary Care Physician: Will Mora Provider Information Primary Provider: Quintin Murcia DO Advanced Professor Of Psychiatry:Rober Solorzano PA-C The exam and treatment you received in the Emergency Department were for an urgent problem and are not intended as complete care. It is important that you follow up with a doctor, nurse practitioner, or physician?s promotions assistant sales marketing for ongoing care. If your symptoms become worse or you do not improve as expected and you are unable to reach your usual health care provider, you should return to the Emergency Department. We are available 24 hours a day. KASSIE DIALLOE has been given the following list of patient education materials, prescriptions and follow-up instructions: Follow-up Instructions: With: Address: When: Will Hawthorne [address] [place], [place] [id number] [facility] (1[place] In 3 days 02/13/2023 In the event that this physician does not participate in your insurance network, please consult with your insurance company to find a nearby participating provider. Patient Education Materials: Viral Gastroenteritis, Adult A MESSAGE TO ALL PATIENTS REGARDING OPIOIDS PRESCRIPTION OPIOIDS: WHAT YOU NEED TO KNOW Prescription opioids can be used to help relieve zytdnvju-zu-qwxqdn pain and are often prescribed following a surgery or injury, or for certain health conditions. These medications can be an important part of the treatment but also come with serious risks. It is important to work with your healthcare provider to make sure you are getting the safest, most effective care. WHAT ARE THE RISKS AND SIDE EFFECTS OF OPIOID USE? Prescription opioids carry serious risks of addiction and overdose, especially with prolonged use. An opioid overdose, often marked by slowed breathing, can cause sudden . The use of prescription opioids can have a number of side effects as well, even when taken as directed: ? Tolerance?meaning you might need to take more of the medication for the same pain relief ? Physical dependence?meaning you have symptoms of withdrawal when a medication is stopped ? Increased sensitivity to pain ? Constipation ? Nausea, vomiting, and dry mouth ? Sleepiness and dizziness ? Confusion ? Depression ? Low levels of testosterone that can result in lower sex drive, energy, and strength ? Itching and sweating RISKS ARE GREATER WITH: ? History of drug misuse, substance use disorder, or overdose ? Mental health conditions (such as depression or anxiety) ? Sleep apnea ? Older age (65 years and older) ? Avoid alcohol while taking prescription opioids. Also, unless specifically advised by your health care provider, medications to avoid include: ? Benzodiazepines (such as Xanax or Valium) ? Muscle relaxants (such as Soma or Flexeril) ? Hypnotics (such as Ambien or Lunesta) ? Other prescription opioids KNOW YOUR OPTIONS Talk to your health care provider about ways to manage your pain that don?t involve prescription opioids. Some of these options may actually work better and have fewer risks and side effects. Options may include: ? Pain relievers such as acetaminophen, ibuprofen, and naproxen ? Some medication that are also used for depression or seizures ? Physical therapy and exercise ? Cognitive behavioral therapy, a psychological, goal-directed approach, in which patients learn how to modify physical, behavioral, and emotional triggers of pain and stress. IF YOU ARE PRESCRIBED OPIOIDS FOR PAIN: ? Never take opioids in greater amounts or more often than prescribed. ? Follow up with your primary health care provider. o Work together to create a plan on how to manage your pain. o Talk about ways to help manage your pain that don?t involve prescription opioids. o Talk about any and all concerns and side effects. ? Help prevent misuse and abuse o Never sell or share prescription opioids. o Never use another person?s prescription opioids. ? Store prescription opioids in a secure place and out of reach of others (this may include visitors, children, friends, and family). ? Safely dispose of unused prescription opioids: Find your community drug take-back program or your pharmacy mail-back program, or flush them down the toilet, following guidance from the Food and Drug Administration (www.fda.gov/Drugs/Re sourcesForYou). ? Visit www.cdc.gov/drugoverd ose to learn about the risks of opioids abuse and overdose. ? If you believe you may be struggling with addiction, tell your health career and guidance counselor and ask for guidance or call [facility]?Nikko Alvarado (more content not included)... Normal [facility] HEMATOLOGYOrdered By: SYSTEM SYSTEM on 02-10-2023 Basophils/100 WBC (Bld) 0.4 % Normal 0.0 - 2.0 % [facility]eAutoSS Basophils/Leukocytes Auto (Bld) [Pure # fraction] 0.1 E9/L Normal 0.0 - 0.2 E9/L [facility]eAuto[facility] Eosinophils/100 WBC (Bld) 0.7 % Normal 0.0 - 8.0 % [facility]eAuto[facility] Eosinophils/Leukocytes Auto (Bld) [Pure # fraction] 0.1 E9/L Normal 0.0 - 0.5 E9/L [facility] Lymphocytes/100 WBC (Bld) 7.9 % Low 14.0 - 50.0 % [facility] Lymphocytes/Leukocytes Auto (Bld) [Pure # fraction] 1.1 E9/L Normal 1.0 - 4.0 E9/L [facility] Monocytes/100 WBC (Bld) 7.1 % Normal 4.0 - 14.0 % [facility] Monocytes/Leukocytes Auto (Bld) [Pure # fraction] 1.0 E9/L Normal 0.2 - 1.0 E9/L [facility] Neutrophils/100 WBC (Bld) 83.9 % High 36.0 - 75.0 % [facility] Neutrophils/Leukocytes Auto (Bld) [Pure # fraction] 11.4 E9/L [...] 13.7 E9/L High 4.0 - 11.0 E9/L [facility] Hep Func Panelon 02-10-2023 Bilirubin.indirect [Mass or moles/Vol] UTC Abnormal 0.1-0.9 [facility] Comment on above: Result Comment: Resu lt verified by Discern Rule. Performed result UT (Unable to Calculate) was sent as an Alpha code due the inability to calculate a valid numeric value. Performed By: #### 2 [id number], [id number], 3667232, 1796518, 3268716, 9332134, [id number] #### [facility] [address] [place] [address] Albumin [Mass/Vol] 4.4 g/dL Normal 3.3-5.0 [facility] Comment on above: Performed By: #### 2 936530, 33296383, 0124633, 3140665, 1207373, 7091942, [id number] #### [facility] [address] [place] [address] Albumin/Globulin (S) [Mass conc ratio] 1.5 Normal 1.1-2.2 [facility] Comment on above: Performed By: #### 2 559166, 81873661, 7712516, 5666786, 5481765, 5785868, 85661563 #### [facility] [address] [place] [address] ALP [Catalytic activity/Vol] 76 Int._Unit/L Normal 21-98 [facility] Comment on above: Performed By: #### 2 777787, 76429968, 7601837, 2139434, 1026853, 2993229, 94527951 #### [facility] [address] [place] [address] ALT No additional P-5'-P [Catalytic activity/Vol] 15 Int._Unit/L Normal 6-46 [facility] Comment on above: Performed By: #### 2 368051, 36502605, 1237969, 1033761, 0254187, 4242084, 43418553 #### [facility] [address] [place] [address] AST [Catalytic activity/Vol] 15 Int._Unit/L Normal 5-43 [facility] Comment on above: Performed By: #### 2 202105, 59050610, 4015591, 1739105, 8036225, 7816793, 00018793 #### [facility] [address] [place] [address]63 Bilirubin [Mass/Vol] 0.5 mg/dL Normal 0.0-1.1 [facility] Comment on above: Performed By: #### 2 978870, 84154378, 3617537, 7201399, 0915598, 1359932, 70439445 #### [facility] [address] [place] [address] Globulin (S) [Mass/Vol] 3.0 g/dL Normal 1.4-4.0 [facility] Comment on above: Performed By: #### 2 244326, 19095107, 3665422, 5336234, 7959282, 9937263, 76614046 #### [facility] [address] [place] [address] 22792 Protein [Mass/Vol] 7.4 g/dL Normal 6.0-7.8 [facility] Comment on above: Performed By: #### 2 961988, 30747102, 0141665, 0424904, 3342873, 8486251, 31167682 #### [facility] [address] [place] [address] Bilirubin.direct [Mass/Vol] mg/dL Normal 0.1-0.4 [facility] Comment on above: Performed By: #### 2 363217, 85249566, 9344937, 6604852, 2891936, 7114442, 69940805 #### [facility] [address] [place] [address] 31601 Lipase Levelon 02-10-2023 Lipase [Catalytic activity/Vol] 36 U/L Normal 13-58 [facility] Comment on above: Performed By: #### 2 763289, 02313652, 0486789, 1303132, 7492434, 9830627, 96330333 #### [facility] [address] [place] [address] Pre-Arrival Noteon 3 Pre-Arrival Note Pre-Arrival Summary Name: HARMAN, Current Date: 02/10/2023 12:00:12 EST Gender: Female Date of : Age: 27 Pre-Arrival Type: EMS ETA: 02/10/2023 12:15:00 EST Primary Care Physician: Presenting Problem: Abd pain/n/v Pre-Arrival User: Stefani Wilson Referring Source: Location: ID Completion Date/Time: 02/10/2023 00:00:00 [facility] Emergency Department Pre-Hospital Report Form Vital Signs: 95/62, hr 80, 98% RA Pre-Hospital Report: Abd pain with n/v since this morning. Treatment in Route: 22G L H, IVF Response to Treatment: Misc. Issues: Normal [facility] SEROLOGYOrdered By: Jordy Leiva on 02-10-2023 Beta HCG ( test) Ql Negative (02/10/23 11:58 AM) Normal [facility] Man Sero eGFRon 02-10-2023 GFR/1.73 sq M.predicted among non-blacks MDRD (S/P/Bld) [Vol rate/Area] 103 mL/min/1.73 m2 Normal >=59 [facility] Comment on above: Order Comment: Order added by Discern Expert. Result Comment: Corporate Law Assistant lina kidney disease could be indicated at eGFR's of less than 60 mL/min/1.73m2. Kidney failure is indicated at less than 15 mL/min/1.73m2. Performed By: #### 2 409354, 04078600, 1738489, 6146695, 8135512, 1845963, 30149625 #### [facility] [address] [place] [address] Consultation Noteon 02-10-20 Consultation Note [id number]#1 .00TIFF Normal [facility] PT - Progress Noteson 2022 PT - Progress Notes [id number]#1 .00TIFF Normal [facility] Consent for Treatmenton Consent for Treatment [id number]#1 .00TIFF Normal [facility] Insurance Correspondenceon 03-28-2022 Insurance Correspondence [id number]# 1.00TIFF [facility] Formson 01-24-2023 Forms Spoke with Navin Thompson @ [facility] (Ref. # [id number]) on 01/19/2023 & she relays the appeals received did not include clinicals. Navin advised to resend appeals request & include clinicals. Appeals request re-faxed & included clinicals, confirmation was received. [id number]#1 .00TIFF [facility] NM Hepatobiliary Duct System Imaging w/EFon 01-17-2023 NM Hepatobiliary Duct System Imaging w/EF Exam Date/Time: 01/14/2023 13:25 EST Reason for Exam: RUQ abdominal pain, US nondiagnostic;Other (please specify) Report IMPRESSION: Patent cystic and common bile ducts. No evidence of acute cholecystitis. Normal gallbladder ejection fraction. No evidence of chronic cholecystitis. NM Hepatobiliary Duct System Imaging w/EF CLINICAL HISTORY: Right upper quadrant abdominal pain. TECHNIQUE: 4.2 mCi Tc-99m Mebrofenin IV, followed by 60 minutes of abdominal imaging. 1.4 micrograms Sincalide (CCK) IV, followed by additional 30 minutes of imaging. RESULT: There is prompt and homogeneous uptake by the liver, which appears grossly normal in size and shape. Gallbladder activity is visualized by 15 minutes, indicating cystic duct patency. Proximal small bowel activity is noted by 30 minutes, indicating common bile duct patency. After CCK was administered there is near complete emptying from the gallbladder with a calculated gallbladder ejection fraction of 80% (normal > 35%). Ordering Provider: Will Hawthorne FINAL REPORT Dictated: 01/17/2023 1:30 pm Huang Ramirez MD Signed (Electronic Signature): 01/17/2023 1:30 pm Signed by: Huang Ramirez MD Transcribed by: ABIGAIL Technologist: ROBERTO Technical Comments Dose: (mCi Tc99m Mebrofenin) 4.2 Kinevac Dose (in micrograms) 1.4 Normal [facility] Consent for Treatmenton 01-05 Consent for Treatment [id number]#1 .00TIFF [facility] Insurance Correspondenceon 1 03-13-2022 Insurance Correspondence [id number]#1 .00TIFF [facility] Formson 01-05-2023 Forms [id number]#1 .00TIFF [facility] Patient Letter FTon 2022 Patient Letter [facility] To Whom It May Concern, Appeals Department Re: KASSIE DIALLO Date of : 1995 Re: Transthoracic Echocardiogram The above patient was recently seen by Dr. Flores for further evaluation palpitations, chest pain, abnormal EKG. She had a Holter monitor with PACs and PVCs. She had a stress test which was negative for ischemia or arrhythmia. Insurance is denying an echocardiogram. Echocardiogram is needed to evaluate patient's cardiac structure and function especially given her worsening symptoms and PACs/PVCs. We need to confirm she has normal LV function and no significant valve disease. Please consider appealing the decision, and approve this patient to have a necessary transthoracic echocardiogram. Preethi PEREIRA [facility] Stress EKG Tracingson 2022 Stress EKG Tracings [id number]# 1.00TIFF [facility] Consent for Treatmenton 10 Consent for Treatment [id number]#1 .00TIFF [facility] Insurance Correspondenceon 1 Insurance Correspondence [id number]# 1.00TIFF [facility] Ambulatory Visit Summaryon 1 Ambulatory Visit Summary KASSIE DIALLO :1995 Visit Date:12/29/2022 Ambulatory Visit Instructions Your Diagnosis BMI 24.0-24.9, adult Non-smoker Your Care Team Attending Physician - Will Mora Primary Care Physician - Will Mora This Is Your Medications List Misc Prescription ([employer] ASPIRIN EC 81 MG TABLET) diltiazem (diltiazem 120 mg oral capsule, extended release) fluoxetine (Prozac 20 mg Cap) naproxen (Naprosyn 500 mg Tab) Procedures Performed Betamethasone (02/01/2017), Betamethasone (01/31/2017), lacerated Kidney (2007), Right Hand Surgery. Discharge Vitals Heart Rate (Peripheral) 78 Respiratory Rate 18 Blood Pressure 118/76 Weight 71.4 kg Weight 157.08 lb What to do next Scheduled Follow-Up Appointments Tuesday 8:45 AM EDT With: Where: [facility] Tuesday 11:45 AM EST With: MARK GAMBLE, Huang Wall Where: [facility] Medications What How Much When Instructions Unchanged diltiazem (diltiazem 120 mg oral capsule, extended release) 1 Capsules By Mouth Every day Duration: 30 Days Unchanged fluoxetine (Prozac 20 mg Cap) 1 Capsules By Mouth Every day Unchanged Misc Prescription ([employer] ASPIRIN EC 81 MG TABLET) See instructions 0 Unchanged naproxen (Naprosyn 500 mg Tab) 1 Tablets By Mouth 2 times a day as needed for for pain Allergies clindamycin (Hives) Problems Ongoing - Any problem that you are currently receiving treatment for. Abdominal pain Abnormal EKG Amenorrhea, secondary Anxiety Bacterial conjunctivitis of right eye Bipolar 1 disorder, mixed, moderate Bipolar disorder Cellulitis, leg Cervical sprain Cervical strain Chronic abdominal pain Depression Heart palpitations Migraines Neck muscle strain Pelvic pain Peroneal neuritis PTSD (post-traumatic stress disorder) Right hand pain Right upper quadrant pain Screening for cardiovascular condition Screening for thyroid disorder Smoker Vulvovaginitis Historical - Any problem that you are no longer receiving treatment for. Depression Laceration of kidney without open wound into abdominal cavity orthostatic fainting Pseudoseizures Suicidal ideation Patient Survey You may receive a survey via text or e-mail asking about your office visit. Please share your experience with us by completing your survey. We appreciate your feedback and thank you for choosing us for your care. Normal [facility] Family Medicine Office/Clini c Noteon 12-29-2022 Family Medicine Office/Clinic Note HPI Staff Kassie is a 27 year old female presenting for 1 month follow up Anxiety Last OV tele vist 11/19/22: Heart palpitations, anxiety Holter monitor was ordered and referred to Dr Crum Follow up for Mental Status: Medication adherence- Yes, takes medication as prescribed MEdication refill needed: _ Suicidal thoughts-Not at this time Most recent JULIA: pt is bipolar Most recent PHQ: [address] Flores 12/15/22 stress test was ordered jai done next tuesday. Started her on Diltiazem hasn't started that medication yet. pt continues to have palpitations, feels her anxiety is about the same she is in Therapy History of Present Illness pt would like to decrease dose to 10mg. she feels sluggish on the 20 mg. Review of Systems PHQ Score Initial Depression Screen Score: 0 ROS - Provider Constitutional: no fever, no chills, no sweats, no fatigue Respiratory: no shortness of breath, no cough, no orthopnea, no wheezing. Cardiovascular: no chest pain, no palpitations, no edema. Neurologic: no headache, no dizziness, no numbness, no weakness. mid to upper right quadrant pain, pain and nausea after eating Physical Exam Vitals & Measurements HR: 78(Peripheral) RR: 18 BP: 118/76 SpO2: 98% WT: 71.4 kg WT: 157.08 lb General: alert, no acute distress ENMT: oral mucosa moist, no pharyngeal erythema or exudate Cardiovascular: regular rate and rhythm, normal peripheral perfusion Respiratory: Lungs CTA, respirations non labored Extremities: no deformity, no trauma Neurological: oriented x 4, LOC appropriate for age, CN II-XII intact, motor strength equal & normal bilaterally, speech normal Assessment/Plan 1. Right upper quadrant pain (R10.11: Right upper quadrant pain) pt still c/o mid to right upper quadrant pain. especially after eating meals. she does have some nausea with it as well. U/S of gallbladder was WNL. will order HIDA scan. all questions answered. pt is follow with cardio for palpitations and neuro for migraines. RTC as needed Ordered: cephalexin, 500 mg = 1 cap(s), Oral, q8hr, # 30 cap(s), Refills(s) 0, Pharmacy: [id number], 170, cm, 12/16/22 14:03:00 EDT, Height/Length Dosing, 71.4, kg, 12/16/22 14:03:00 EDT, Weight Dosing fluoxetine, 10 mg = 1 tab(s), Oral, Daily, # 30 tab(s), Refills(s) 3, Pharmacy: [id number], 170, cm, 12/16/22 14:03:00 EDT, Height/Length Dosing, 71.4, kg, 12/29/22 13:44:00 EDT, Weight Dosing NM Hepatobiliary Duct System Imaging w/o EF 2. Anxiety (F41.9: Anxiety disorder, unspecified) pt does not like how the 20mg of prozac is making her feels so drained and groggy. will send 10mg to pharmacy. pt continues to go to therapy Ordered: fluoxetine, 10 mg = 1 tab(s), Oral, Daily, # 30 tab(s), Refills(s) 3, Pharmacy: [facility] #[id number], 170, cm, 12/16/22 14:03:00 EDT, Height/Length Dosing, 71.4, kg, 12/29/22 13:44:00 EDT, Weight Dosing 3. BMI 24.0-24.9, adult (Z68.24: Body mass index [BMI] 24.0-24.9, adult) BMI education complete Ordered: fluoxetine, 10 mg = 1 tab(s), Oral, Daily, # 30 tab(s), Refills(s) 3, Pharmacy: [facility]/pharmacy #[id number], 170, cm, 12/16/22 14:03:00 EDT, Height/Length Dosing, 71.4, kg, 12/29/22 13:44:00 EDT, Weight Dosing 4. Non-smoker (Z78.9: Other specified health status) continue not smoking Ordered: fluoxetine, 10 mg = 1 tab(s), Oral, Daily, # 30 tab(s), Refills(s) 3, [id number], 170, cm, 12/16/22 14:03:00 EDT, Height/Length Dosing, 71.4, kg, 12/29/22 13:44:00 EDT, Weight Dosing Follow-up No qualifying data available Problem List/Past Medical History Ongoing Abdominal pain Abnormal EKG Amenorrhea, secondary Anxiety Bacterial conjunctivitis of right eye Bipolar 1 disorder, mixed, moderate Bipolar disorder Cellulitis, leg Cervical sprain Cervical strain Chronic abdominal pain Depression Heart palpitations Migraines Neck muscle strain Pelvic pain Peroneal neuritis PTSD (post-traumatic stress disorder) Right hand pain Right upper quadrant pain Screening for cardiovascular condition Screening for thyroid disorder Smoker Vulvovaginitis Historical Depression Laceration of kidney without open wound into abdominal cavity orthostatic fainting Pseudoseizures Suicidal ideation Procedure/Surgical History Betamethasone (02/01/2017), Betamethasone (01/31/2017), lacerated Kidney (2007), Right Hand Surgery. Medications [facility]S ASPIRIN EC 81 MG TABLET, See Instructions diltiazem 120 mg oral capsule, extended release, 120 mg= 1 cap(s), Oral, Daily, 2 refills, Not taking: pt hasnt' started yet fluoxetine 10 mg oral tablet, 10 mg= 1 tab(s), Oral, Daily, 3 refills Naprosyn 500 mg Tab, 500 mg= 1 tab(s), Oral, BID, PRN Allergies clindamycin (Hives) Social History Alcohol - Denies Alcohol Use, 04/26/2019 Current, Beer, Wine, 1-2 times per month, Household alcohol concerns: No., 04/15/2020 Employment/School - Not employed or in (more content not included)... Normal [facility] Comment on above: Result Comment: Elec tronically Signed By: Will Mora\Date and Time Signed: 12/29/22 14:42 EDT Consent for Treatmenton 12-05 Consent for Treatment [id number]#1 .00TIFF Normal [facility] Consent for Treatment [id number]#1 .00TIFF Normal [facility] Heart and Vascular Office/Cl inic Noteon 12-16-2022 Heart and Vascular Office/Clinic Note History of Present Illness Patient is a very pleasant 27-year-old nondiabetic female referred to our office to establish care for palpitations and abnormal EKG and anxiety. She has 2 small children with her today making her visit somewhat challenging. Patient states that she went to get her back adjusted at a chiropractor and ever since then has had chest pain symptoms radiating into her back. This was so bad she went to the emergency room was recently admitted to the hospital. In addition she complained of face numbness. She underwent a Holter monitor which was unremarkable except for rare PACs and PVCs. All of her chest pain was unremarkable on the Holter. She was recently restarted back on fluoxetine but this is causing her fatigue, tiredness, and decreased libido. Patient states she can walk on a treadmill. Is currently being worked up for gallbladder disease as well. Patient underwent pediatric echocardiogram on 07/12/2012 with the following results: (07/12/2012 14:41 EDT EC Pediatric Echo Transthoracic Complete) SUMMARY/CONCLUSION: Normal echocardiogram. [1] Patient underwent Holter monitor on 12/03/2022 with the following results: CONCLUSIONS: 1. Unremarkable 48-hour Holter monitor. The patient had rare premature atrial contractions and premature ventricular contractions noted. 2. No evidence of atrial fibrillation, supraventricular tachycardia, pauses or ventricular tachycardia. 3. The patient had several entries of substernal chest pain all of which corresponded to normal sinus rhythm. 4. Recommend clinical correlation or alternative mode of testing if clinically indicated. Ultrasound of gallbladder dated 12/16/2022 is as below: (12/16/2022 10:58 EDT US Gallbladder) IMPRESSION: NEGATIVE ULTRASOUND OF THE LIVER AND GALLBLADDER. [2] In our office today her blood pressure was 108/66 and pulse is 57 and regular. Physical exam is as below. Lipids dated 11/02/2022 show an HDL of 36 and an LDL of 103. EKG dated 12/16/2022 shows normal sinus rhythm, normal axis, normal intervals, incomplete right bundle branch block, no previous myocardial infarction noted. TSH is normal. Review of Systems Constitutional: no fever, no sweats, no weakness Skin: no rash, no lesions, nobruising/petechiae ENMT: no sore throat, no congestion, no hoarseness Respiratory: no shortness of breath, no cough, no orthopnea, no wheezing Cardiovascular: no chest pain, no palpitations, no edema Gastrointestinal: no nausea, no vomiting, no diarrhea, no GI bleeding Genitourinary: no anuria/oliguria no hematuria Musculoskeletal: no back pain, no trauma Neurologic: no headache, no dizziness, no numbness, no weakness Psychiatric: no sleeping problems, no irritability, no anxiety/depression. Heme/Lymph: no bleeding tendency, no bruising tendency Allergy/Immunologic: no recurrent infections, no impaired immunity Additional ROS info: Except as noted in the above Review of Systems and in the History of Present Illness all other systems have been reviewed and are negative or noncontributory. Physical Exam General: alert, no acute distress Skin: warm, dry intact Head: atraumatic, normocephalic Neck: Trachea midline, no JVD, no bruit Eye: normal conjunctiva, sclera clear ENMT: oral mucosa moist Cardiovascular: regular rate and rhythm, nomurmur normal peripheral perfusion Respiratory: Lungs CTA, respirations non labored Chest wall: no deformity. Gastrointestinal: soft, non distended, no tenderness, no guarding. Back: No tenderness, Normal ROM, Normal alignment. Extremities: no edema, no deformity, no trauma Neurological: oriented x 4, LOC appropriate for agesensation equal & normal bilaterally, speech normal Psychiatric: cooperative, affect appropriate for age, normal judgement, normal psychiatric thoughts. Assessment/Plan 1. Chest pain: Patient's chest pain appears to be atypical in nature and may correspond to drinking sugary coffee substances. Gallbladder work-up is ongoing at this time. Recommend repeating her echocardiogram to ensure that she has normal LV size and function and pulmonary pressures. In addition she will undergo a treadmill EKG to determine if she has any exertional chest pain, as well as a repeat 2D echo with Doppler to evaluate her LV function and pulmonary pressures. Would recommend getting her off of her fluoxetine as it does not seem to be helping but rather causing her more fatigue, tiredness, and sexual dysfunction. Recommend starting her on Cardizem CD 120 mg p.o. daily to assist with her palpitations. 2. Return office with Dr. Flores in 1 month. Thank you very much for the opportunity to participate in the cardiac care of your patient. Follow-up No qualifying data available Problem List/Past Medical History Ongoing Abdominal pain Abnormal EKG Amenorrhea, secondary Anxiety Bacterial conjunctivitis of right eye Bipolar 1 disorder, mixed, moderate Bipolar disorder Cellulitis, leg Cervical sprain Cervical strai (more content not included)... Normal [facility] Comment on above: Result Comment: Elec tronically Signed By: MARK GAMBLE, Huang Wall\.br\Date and Time Signed: 12/16/22 14:32 EDT Physician Orderon 12-16-2022 Physician Order [id number] .[id number] Normal [facility] US Gallbladderon 12-16-2022 US Gallbladder Exam Date/Time: 12/16/2022 10:58 EDT Reason for Exam: R10.9;Abdominal pain Report IMPRESSION: NEGATIVE ULTRASOUND OF THE LIVER AND GALLBLADDER. CLINICAL HISTORY: Abdominal pain, R10.9. COMMENT: The liver is normal in size and configuration. The echo pattern of the liver is unremarkable. No focal liver lesion is evident. The gallbladder is normal in size and ultrasound appearance. No gallstones are noted. No biliary ductal dilatation is noted. The common bile duct measures approximately 6 mm in diameter at the marlon hepatis, which is within normal limits. The common bile duct is obscured beyond the marlon hepatis. No free fluid is noted collecting peripheral to the liver. Ordering Provider: Will Hawthorne FINAL REPORT Dictated: 12/16/2022 11:43 am Sohan Funk M.D. Signed (Electronic Signature): 12/16/2022 11:43 am Signed by: Sohan Funk M.D. Transcribed by: ABIGAIL Technologist: Pacheco WALTON [facility] Holter Monitoron 12-06-2022 Holter Monitor [id number] .00CD:127 [facility] Holter Monitoron 12-04-2022 Holter Monitor 48-HOUR HOLTER MONITOR ORDERING PRACTITIONER: CODY Johnson INTERPRETING PHYSICIAN: Huang Flores M.D. INDICATIONS: Palpitations. RESULTS: The patient underwent a 48-hour Holter monitor during which time the patient's predominant rhythm was normal sinus rhythm alternating between a heart rate of 52 beats per minute and 147 beats per minute. The patient had no evidence of atrial fibrillation documented. Ventricular ectopy: The patient had a total of 15 isolated premature ventricular contractions. No ventricular tachycardia noted. Supraventricular ectopy: The patient had a total of 328 isolated premature atrial contractions which represent 0.22% of the total heartbeats. The patient had several entries of chest pain and shortness of breath, all of which corresponded to normal sinus rhythm. The patient did not complain of symptoms with her atrial and ventricular ectopy. The patient did complain of palpitations on one entry which corresponded to normal sinus rhythm. CONCLUSIONS: 1. Unremarkable 48-hour Holter monitor. The patient had rare premature atrial contractions and premature ventricular contractions noted. 2. No evidence of atrial fibrillation, supraventricular tachycardia, pauses or ventricular tachycardia. 3. The patient had several entries of substernal chest pain all of which corresponded to normal sinus rhythm. 4. Recommend clinical correlation or alternative mode of testing if clinically indicated. READ BY: Huang Flores M.D. Dictated: 12/03/2022 [id number] Transcribed: 12/03/2022 cc:CODY Johnson [facility] Comment on above: Result Comment: Elec tronically Signed By: MARK GAMBLE, Huang Wall\.br\Date and Time Signed: 12/04/22 08:27 EDT Consultation Noteon 12-03-19 Consultation Note [id number] .00CD:127 [facility] Consent for Treatmenton 11-06 Consent for Treatment [id number] .00CD:127 [facility] Discharge Instructionson Discharge Instructions [id number] 1.00CD:127 Normal [facility] ED Clinical Summaryon 2022 ED Clinical Summary [place] [id number] ED Clinical Summary Person Information Name: [facility] Age: 26 Years : 1995 Sex: Female Language: [place] Arabian PCP: Will Mora Marital Status: Phone: [phone] MRN: Visit Id: Visit Reason: Dental pain; face pain Speciality: Acuity: 4 Enc Type: Emergency Med Service: Emergency Arrival: 11/30/2022 23:37:43 Discharge: 12/01/2022 00:25:55 LOS: 000 00:48 Checkin: 11/30/2022 23:37:43 Checkout: 12/01/2022 00:25:55 Dispo Type: Home (Routine DC) EVENTS: Event Name Event Status Request Date/Time Start Date/Time Complete Date/Time Arrive Complete 11/30/2022 23:37:43 11/30/2022 23:37:43 11/30/2022 23:37:43 Document Home Meds Request 11/30/2022 23:37:43 Triage Complete 11/30/2022 23:37:43 11/30/2022 23:49:33 11/30/2022 23:49:33 Registration Complete 11/30/2022 23:42:08 11/30/2022 23:42:08 11/30/2022 23:42:08 Reg Complete Request 11/30/2022 23:42:08 Reg Bed Request Complete 11/30/2022 23:42:08 11/30/2022 23:42:08 11/30/2022 23:42:08 Dr Exam Complete 11/30/2022 23:45:33 11/30/2022 23:45:33 11/30/2022 23:45:33 Registration Start 11/30/2022 23:45:33 11/30/2022 23:54:40 Patient Care Request 11/30/2022 23:49:34 Patient Isolation Request 11/30/2022 23:49:34 Bed Assign Complete 11/30/2022 23:54:40 11/30/2022 23:54:40 11/30/2022 23:54:40 RN Exam Complete 11/30/2022 23:54:40 12/01/2022 00:06:08 12/01/2022 00:06:08 Meds Admin Complete 12/01/2022 00:02:28 12/01/2022 00:25:22 Discharge Complete 12/01/2022 00:04:40 12/01/2022 00:26:05 12/01/2022 00:26:05 Meds Admin Complete 12/01/2022 00:08:48 12/01/2022 00:25:28 Transfer Complete 12/01/2022 00:26:05 12/01/2022 00:26:05 12/01/2022 00:26:05 ADDRESS: [address] [place] [phone] PHYS DOC NOTES: MEDICAL INFORMATION: Prescriptions Given: New Medications [facility]/pharmacy #[id number], [address], [place] [id number], [phone] amoxicillin (amoxicillin 500 mg Cap) 1 Capsules By Mouth 3 times a day for 7 Days. Refills: 0. naproxen (Naprosyn 500 mg Tab) 1 Tablets By Mouth 2 times a day as needed for pain. Refills: 0. Medications to Continue with No Changes Other Medications fluoxetine (Prozac 20 mg Cap) 1 Capsules By Mouth every day. Refills: 2. Misc Prescription ([facility] ASPIRIN EC 81 MG TABLET) 0. PATIENT EDUCATION INFORMATION: Instructions: Dental Pain, Hsbb-fw-Yusp Follow up: With: Address: When: Dental: [facility] [phone] In 3 days 12/04/2022 Comments: Take the antibiotics as prescribed to completed the course. You can use the pain medication as prescribed as needed for pain. Please follow-up with your primary care doctor in addition to the dentist for further evaluation and management. Please return to the ED for any new or worsening symptoms. With: Address: When: Dental: [facility] [phone] In 3 days 12/04/2022 With: Address: When: Dental: [facility] [phone] In 3 days 12/04/2022 With: Address: When: Will Hawthorne [address] [place] [address] Business (1) In 3 days 12/04/2022 DIAGNOSIS: Pain, dental Normal [facility] ED Note-Physicianon 12-02-19 ED Note-Physician Basic Information Time Seen: nidhipiyush CRUM Patrickenzo Hilliard 11/30/2022 23:45 Chief Complaint Pt. c/o dental pain on her right upper molar area radiating to her right ear. History of Present Illness Patient is a 28-year-old female presenting to the ED for evaluation of right-sided dental pain. Patient states she has a cracked tooth on her right upper jaw has an appointment with a dentist but not until January. Patient states she had increasing pain for the last several days, took ibuprofen, Tylenol at home with minimal improvement of her symptoms. Patient denies any fevers, chills, nausea or vomiting. Review of Systems A 10 point review of systems is negative except as noted above. Medical and Surgical History: Reviewed and noted Social history: Lives at home Tobacco: Denies Physical Exam Vitals & Measurements T: 36.7 ?C(Oral) HR: 62(Peripheral) RR: 19 BP: 115/71 SpO2: 99% HT: 170 cm WT: 71.8 kg BMI: 24.84 General: Well developed, non toxic appearing, no acute distress HEENT: Head atraumatic, Mucosa moist, hearing grossly normal dental caries noted throughout some erythema on the gumline of tooth #2 through 5 Neck: No JVD, tracheal deviation Cardiac: Regular rate, rhythm, no murmurs, or gallops, 2+ radial pulses Respiratory: Lungs clear to auscultation B/L, normal respiratory effort Abdomen: Soft non tender, no rebound or guarding, no peritoneal signs Extremities: No edema noted in the LE B/L, no tenderness to palpation Neurologic: Alert and oriented, speech clear Skin: No rashes or lesions Psych: Appropriate mood and behavior Medical Decision Making MEDICAL DECISION MAKING Number and Complexity of Problems Differential Diagnosis: [] [facility] Data External documents reviewed: [] My EKG interpretation: [] My CT interpretation: [] My X-ray interpretation: [] My Ultrasound interpretation: [] Decision rules/scores evaluated: [] Discussed with: [] Treatment and Disposition ED Course: Patient is a 26-year-old female presenting to the ED for evaluation of dental pain. Patient nontoxic and on arrival, no acute distress. Does have dental caries noted on examination with signs consistent with dental infection. No drainable abscess. Patient is given topical pain relief in the ED is also given amoxicillin. She is discharged home is given prescription for amoxicillin, naproxen. She follow-up with her primary care doctor in the next 2 to 3 days. She return to the ED for any new or worsening symptoms. Shared decision making: [] Code status: [] Assessment/Plan Pain, dental (K08.89: Other specified disorders of teeth and supporting structures) Orders: acetaminophen-hydroco done, 1 EA, Tab, Oral, Once, Stop date 12/01/22 0:02:00 EDT, STAT, Start date 12/01/22 0:02:00 EDT amoxicillin, 500 mg = 1 cap(s), Oral, TID, X 7 day(s), # 21 cap(s), Refills(s) 0, Pharmacy: [facility]/pharmacy #[id number], 170, cm, 11/30/22 23:49:00 EDT, Height/Length Dosing, 71.8, kg, 11/30/22 23:49:00 EDT, Weight Dosing amoxicillin, 500 mg = 1 cap(s), Cap, Oral, Once, Stop date 12/01/22 0:01:00 EDT, STAT, Start date 12/01/22 0:01:00 EDT, 12/01/22 0:01:00 EDT benzocaine topical, 1 marci, Gel, Topical, Once, Stop date 12/01/22 0:08:00 EDT, STAT, Start date 12/01/22 0:08:00 EDT lidocaine, 100 mg, 10 mL, Injection, TransDermal, Once, Stop date 12/01/22 0:01:00 EDT, STAT, Start date 12/01/22 0:01:00 EDT naproxen, 500 mg = 1 tab(s), Oral, BID, PRN for pain, # 20 tab(s), Refills(s) 0, Pharmacy: [facility]/pharmacy #[id number], 170, cm, 11/30/22 23:49:00 EDT, Height/Length Dosing, 71.8, kg, 11/30/22 23:49:00 EDT, Weight Dosing Disposition Plan Discharge Prescription List Prescriptions amoxicillin 500 mg Cap, 500 mg= 1 cap(s), Oral, TID Naprosyn 500 mg Tab, 500 mg= 1 tab(s), Oral, BID, PRN Follow-up With When Contact Information Dental: [facility] [phone] In 3 days 12/04/2022 EDT Additional Instructions: Take the antibiotics as prescribed to completed the course. You can use the pain medication as prescribed as needed for pain. Please follow-up with your primary care doctor in addition to the dentist for further evaluation and management. Please return to the ED for any new or worsening symptoms. Dental: [facility] [phone] In 3 days 12/04/2022 EDT Additional Instructions: Dental: [facility] [phone] In 3 days 12/04/2022 EDT Additional Instructions: Will Hawthorne In 3 days 12/04/[address] [place] [address] [facility] (1) Additional Instructions: Patient Education Dental Pain, Zumg-lh-Wfma Problem List/Past Medical History Ongoing Abnormal EKG Amenorrhea, secondary Anxiety Bacterial conjunctivitis of right eye Bipolar 1 disorder, mixed, moderate Bipolar disorder Cellulitis, leg Cervical sprain Cervical strain Chronic abdominal pain Depression Heart palpitations Migraines Neck muscle strain Pelvic pain Peroneal neuritis PTSD (more content not included)... Normal [facility] Comment on above: Result Comment: Elec tronically Signed By: Winnie Paula DO\.reina\Date and Time Signed: 12/01/22 00:09 EDT ED Patient Education Noteon 12-01-2022 ED Patient Education Note Dentistry Dental Pain Dental pain is often a sign that something is wrong with your teeth or gums. You can also have pain after a dental treatment. If you have dental pain, it is important to contact your dentist, especially if the cause of the pain is not known. Dental pain may hurt a lot or a little and can be caused by many things, including: ? Tooth decay (cavities or caries). ? Infection. ? The inner part of the tooth being filled with pus (an abscess). ? Injury. ? A crack in the tooth. ? Gums that move back and expose the root of a tooth. ? Gum disease. ? Abnormal grinding or clenching of teeth. ? Not taking good care of your teeth. Sometimes the cause of pain is not known. You may have pain all the time, or it may happen only when you are: ? Chewing. ? Exposed to hot or cold temperatures. ? Eating or drinking foods or drinks that have a lot of sugar in them, such as soda or candy. Follow these instructions at home: Medicines ? Take mpbd-ptt-ofogkzp and prescription medicines only as told by your dentist. ? If you were prescribed an antibiotic medicine, take it as told by your dentist. Do not stop taking it even if you start to feel better. Eating and drinking Do not eat foods or drinks that cause you pain. These include: ? Very hot or very cold foods or drinks. ? Sweet or sugary foods or drinks. Managing pain and swelling ? If told, put ice on the painful area of your face. To do this: ? Put ice in a plastic bag. ? Place a towel between your skin and the bag. ? Leave the ice on for 20 minutes, 2?3 times a day. ? Take off the ice if your skin turns bright red. This is very important. If you cannot feel pain, heat, or cold, you have a greater risk of damage to the area. Brushing your teeth ? [place] your teeth twice a day using a fluoride toothpaste. ? Use a toothpaste made for sensitive teeth as told by your dentist. ? Use a soft toothbrush. General instructions ? Floss your teeth at least once a day. ? Do not put heat on the outside of your face. ? Rinse your mouth often with salt water. To make salt water, dissolve ??1 tsp (3?6 g) of salt in 1 cup (237 mL) of warm water. ? Watch your dental pain. Let your dentist know if there are any changes. ? Keep all follow-up visits. Contact a dentist if: ? You have dental pain and you do not know why. ? Medicine does not help your pain. ? Your symptoms get worse. ? You have new symptoms. Get help right away if: ? You cannot open your mouth. ? You are having trouble breathing or swallowing. ? You have a fever. ? Your face, neck, or jaw is swollen. These symptoms may be an emergency. Get help right away. Call your local emergency services (911 in the [place] ? Do not wait to see if the symptoms will go away. ? Do not drive yourself to the hospital. Summary ? Dental pain may be caused by many things, including tooth decay, injury, or infection. In some cases, the cause is not known. ? Dental pain may hurt a lot or very little. You may have pain all the time, or you may have it only when you eat or drink. ? Take qhkz-hcg-nxtjagc and prescription medicines only as told by your dentist. ? Watch your dental pain for any changes. Let your dentist know if symptoms get worse. This information is not intended to replace advice given to you by your health care provider. Make sure you discuss any questions you have with your health care provider. Document Revised: 11/26/2020 Document Reviewed: 11/26/2020 [employer] Patient Education ? 2022 [employer] Normal [facility] ED Patient Summaryon 023 ED Patient Summary [place] [id number] Patient Discharge Instructions Person Information Name: KASSIE DIALLO Age: 26 Years Arrival Date: 11/30/2022 23:37:43 Discharge Diagnosis: Pain, dental Primary Care Physician: Will Mora Provider Information Primary Provider: Winnie Paula DO Advanced Professor Of Psychiatry:None The exam and treatment you received in the Emergency Department were for an urgent problem and are not intended as complete care. It is important that you follow up with a doctor, nurse practitioner, or physician?s promotions assistant sales marketing for ongoing care. If your symptoms become worse or you do not improve as expected and you are unable to reach your usual health care provider, you should return to the Emergency Department. We are available 24 hours a day. KASSIE DIALLO has been given the following list of patient education materials, prescriptions and follow-up instructions: Follow-up Instructions: With: Address: When: Dental: [facility] [phone] In 3 days 12/04/2022 Comments: Take the antibiotics as prescribed to completed the course. You can use the pain medication as prescribed as needed for pain. Please follow-up with your primary care doctor in addition to the dentist for further evaluation and management. Please return to the ED for any new or worsening symptoms. With: Address: When: Dental: [facility] [phone] In 3 days 12/04/2022 With: Address: When: Dental: [facility] [phone] In 3 days 12/04/2022 With: Address: When: Will Hawthorne [address] [place] [address] [facility] () In 3 days 12/04/2022 In the event that this physician does not participate in your insurance network, please consult with your insurance company to find a nearby participating provider. Patient Education Materials: Dental Pain, Imro-ry-Dcuu A MESSAGE TO ALL PATIENTS REGARDING OPIOIDS PRESCRIPTION OPIOIDS: WHAT YOU NEED TO KNOW Prescription opioids can be used to help relieve dsqfdcjc-jt-kgktsd pain and are often prescribed following a surgery or injury, or for certain health conditions. These medications can be an important part of the treatment but also come with serious risks. It is important to work with your healthcare provider to make sure you are getting the safest, most effective care. WHAT ARE THE RISKS AND SIDE EFFECTS OF OPIOID USE? Prescription opioids carry serious risks of addiction and overdose, especially with prolonged use. An opioid overdose, often marked by slowed breathing, can cause sudden . The use of prescription opioids can have a number of side effects as well, even when taken as directed: ? Tolerance?meaning you might need to take more of the medication for the same pain relief ? Physical dependence?meaning you have symptoms of withdrawal when a medication is stopped ? Increased sensitivity to pain ? Constipation ? Nausea, vomiting, and dry mouth ? Sleepiness and dizziness ? Confusion ? Depression ? Low levels of testosterone that can result in lower sex drive, energy, and strength ? Itching and sweating RISKS ARE GREATER WITH: ? History of drug misuse, substance use disorder, or overdose ? Mental health conditions (such as depression or anxiety) ? Sleep apnea ? Older age (65 years and older) ? Avoid alcohol while taking prescription opioids. Also, unless specifically advised by your health care provider, medications to avoid include: ? Benzodiazepines (such as Xanax or Valium) ? Muscle relaxants (such as Soma or Flexeril) ? Hypnotics (such as Ambien or Lunesta) ? Other prescription opioids KNOW YOUR OPTIONS Talk to your health care provider about ways to manage your pain that don?t involve prescription opioids. Some of these options may actually work better and have fewer risks and side effects. Options may include: ? Pain relievers such as acetaminophen, ibuprofen, and naproxen ? Some medication that are also used for depression or seizures ? Physical therapy and exercise ? Cognitive behavioral therapy, a psychological, goal-directed approach, in which patients learn how to modify physical, behavioral, and emotional triggers of pain and stress. IF YOU ARE PRESCRIBED OPIOIDS FOR PAIN: ? Never take opioids in greater amounts or more often than prescribed. ? Follow up with your primary health care provider. o Work together to create a plan on how to manage your pain. o Talk about ways to help manage your pain that don?t involve prescription opioids. o Talk about any and all concerns and side effects. ? Help prevent misuse and abuse o Never sell or share prescription opioids. o Never use another person?s prescription opioids. ? Store prescription opioids in a secure place and out of reach of others (this may include visitors, chi (more content not included)... [facility] Consent for Treatmenton 11-06 Consent for Treatment [id number]:127 [facility] Population Healthon 11-24-19 Population Health Case Information Case Priority: None Programs: -- Referral Source: Student Assistant Referral Reason: Care coordination Case Type: High Risk Adult Risk Score: -- Case Status: Enrolled (November 10, 2022) Date Assigned: November 03, 2022 Assigned By: Alana Lock RN Date Enrolled: November 10, 2022 Assigned Primary Personnel: Alana Lock RN Secondary Personnel: -- Case Physician: Will Mora Problems Ongoing Abnormal EKG Amenorrhea, secondary Anxiety Bacterial conjunctivitis of right eye Bipolar 1 disorder, mixed, moderate Bipolar disorder Cellulitis, leg Cervical sprain Cervical strain Chronic abdominal pain Depression Heart palpitations Migraines Neck muscle strain Pelvic pain Peroneal neuritis PTSD (post-traumatic stress disorder) Right hand pain Screening for cardiovascular condition Screening for thyroid disorder Smoker Vulvovaginitis Historical Depression Laceration of kidney without open wound into abdominal cavity orthostatic fainting Pseudoseizures Suicidal ideation Procedure/Surgical History Betamethasone (02/01/2017), Betamethasone (01/31/2017), lacerated Kidney (2007), Right Hand Surgery. Home Medications [facility] ASPIRIN EC 81 MG TABLET, See Instructions Prozac 20 mg Cap, 20 mg= 1 cap(s), Oral, Daily, 2 refills Allergies clindamycin (Hives) Social History Alcohol - Denies Alcohol Use, 04/26/2019 Current, Beer, Wine, 1-2 times per month, Household alcohol concerns: No., 04/15/2020 Employment/School - Not employed or in school, 01/31/2017 Exercise - Occasional exercise, 06/15/2013 Home/Environment - No Risk, 02/07/2017 Nutrition/Health - Low Risk, 02/07/2017 Sexual - No Risk, 02/07/2017 Substance Abuse - Denies Substance Abuse, 04/26/2019 Tobacco - Denies Tobacco Use, 09/29/2022 Former smoker, quit more than 30 days ago Tobacco Use:. Current vaping or e-cigarette use Smokeless Tobacco Use:. Vaping, Started age 14.0 Years. Stopped age 21 Years. Ready to change: No. Household tobacco concerns: No., 11/15/2022 Family History Asthma: Mother and Sister. Depression: Father. Migraine: Father. Screenings and Assessments No screenings and assessments have been documented. Goals and Interventions Care Plan Progress Note MIX CRUSHER OPERATOR final. Patient states is feeling 'fine , and that this is not a good time to be called. Does not wish to be contacted any further. Communication Events Date: November 23, 2022 Method: Phone call Type: Outbound Duration (min): 2 Outcome: Case discussion Contact Type: network coordinator Contact Name: Holly Whitten Notes: MIX CRUSHER OPERATOR final. see ft summary note. Created By: Holly Whitten Date: November 22, 2022 Method: Phone call Type: Outbound Duration (min): 6 Outcome: Case discussion Contact Type: Patient Contact Name: KASSIE DIALLO Notes: MIX CRUSHER OPERATOR#3- spoke with patient for MIX CRUSHER OPERATOR status update, see case summary note. Created By: Tripp Burgos Date: November 15, 2022 Method: Phone call Type: Outbound Duration (min): 1 Outcome: Left message-voicemail Contact Type: network coordinator Contact Name: Zainab Marlow RN Notes: Attempted to call patient for MIX CRUSHER OPERATOR call #2, no answer. Left message for patient to call with status update. Created By: Zainab Marlow RN Date: November 03, 2022 Method: Phone call Type: Outbound Duration (min): -- Outcome: Left message-voicemail Contact Type: network coordinator Contact Name: Alana Lock RN Notes: Second attempt to contact patient for MIX CRUSHER OPERATOR program, no answer, left message asking for a return call. Left reminder for appointment 11/09/22 at 1120. Created By: Alana Lock RN Date: November 03, 2022 Method: Phone call Type: Outbound Duration (min): 1 Outcome: Left message-voicemail Contact Type: network coordinator Contact Name: Alana Lock RN Notes: Attempted MIX CRUSHER OPERATOR #1, no answer, left messsage asking for a return call. Created By: Alana Lock RN [facility] Physician Referralon 023 Physician Referral [id number] .[id number]:127 [facility] Population Health 11-23-19 23 Population Health Case Information Case Priority: None Programs: -- Referral Source: Student Assistant Referral Reason: Care coordination Case Type: High Risk Adult Risk Score: -- Case Status: Enrolled (November 10, 2022) Date Assigned: November 03, 2022 Assigned By: Alana Lock RN Date Enrolled: November 10, 2022 Assigned Primary Personnel: Alana Lock RN Assigned Secondary Personnel: -- Case Physician: Will Mora Problems Ongoing Abnormal EKG Amenorrhea, secondary Anxiety Bacterial conjunctivitis of right eye Bipolar 1 disorder, mixed, moderate Bipolar disorder Cellulitis, leg Cervical sprain Cervical strain Chronic abdominal pain Depression Heart palpitations Migraines Neck muscle strain Pelvic pain Peroneal neuritis PTSD (post-traumatic stress disorder) Right hand pain Screening for cardiovascular condition Screening for thyroid disorder Smoker Vulvovaginitis Historical Depression Laceration of kidney without open wound into abdominal cavity orthostatic fainting Pseudoseizures Suicidal ideation Procedure/Surgical History Betamethasone (02/01/2017), Betamethasone (01/31/2017), lacerated Kidney (2007), Right Hand Surgery. Home Medications [facility] ASPIRIN EC 81 MG TABLET, See Instructions Allergies clindamycin (Hives) Social History Alcohol - Denies Alcohol Use, 04/26/2019 Current, Beer, Wine, 1-2 times per month, Household alcohol concerns: No., 04/15/2020 Employment/School - Not employed or in school, 01/31/2017 Exercise - Occasional exercise, 06/15/2013 Home/Environment - No Risk, 02/07/2017 Nutrition/Health - Low Risk, 02/07/2017 Sexual - No Risk, 02/07/2017 Substance Abuse - Denies Substance Abuse, 04/26/2019 Tobacco - Denies Tobacco Use, 09/29/2022 Former smoker, quit more than 30 days ago Tobacco Use:. Current vaping or e-cigarette use Smokeless Tobacco Use:. Vaping, Started age 14.0 Years. Stopped age 21 Years. Ready to change: No. Household tobacco concerns: No., 11/15/2022 Family History Asthma: Mother and Sister. Depression: Father. Migraine: Father. Screenings and Assessments No screenings and assessments have been documented. Goals and Interventions Care Plan Progress Note MIX CRUSHER OPERATOR#3- Spoke with patient states she is doing much better today. She continues to have palpitations at night. Holter Monitor is scheduled for 11/24/22. She stopped taking magnesium and vitamin b supplement, states along with stopping the vitamins and her PT she is noticing a lot of improvement to the muscle aches and weakness. She has PT today. She is eating and drinking okay for the most part, she is trying to get into the dentist to resolve an 'exposed root' issue. Patient is sleeping well and denies any urinary or bowel issues. Patient inquiring if maybe she should go back on Prozac since her palpitations started shortly after stopping medication (message sent to PCP). Denies any further questions or concerns at this time. Communication Events Date: November 22, 2022 Method: Phone call Type: Outbound Duration (min): 6 Outcome: Case discussion Contact Type: Patient Contact Name: KASSIE DIALLO Notes: MIX CRUSHER OPERATOR#3- spoke with patient for MIX CRUSHER OPERATOR status update, see case summary note. Created By: Tripp Burgos Date: November 15, 2022 Method: Phone call Type: Outbound Duration (min): 1 Outcome: Left message-voicemail Contact Type: network coordinator Contact Name: Zainab Marlow RN Notes: Attempted to call patient for MIX CRUSHER OPERATOR call #2, no answer. Left message for patient to call with status update. Created By: Zainab Marlow RN Date: November 03, 2022 Method: Phone call Type: Outbound Duration (min): -- Outcome: Left message-voicemail Contact Type: network coordinator Contact Name: Alana Lock RN Notes: Second attempt to contact patient for MIX CRUSHER OPERATOR program, no answer, left message asking for a return call. Left reminder for appointment 11/09/22 at 1120. Created By: Alana Lock RN Date: November 03, 2022 Method: Phone call Type: Outbound Duration (min): 1 Outcome: Left message-voicemail Contact Type: network coordinator Contact Name: Alana Lock RN Notes: Attempted MIX CRUSHER OPERATOR #1, no answer, left messsage asking for a return call. Created By: Alana Lock RN [facility] Insurance Correspondenceon 0 11-18-2022 Insurance Correspondence [id number]# 1.00CD:127 Normal [facility] Consent for Treatmenton 11-05 Consent for Treatment [id number] .[id number]:127 Normal [facility] Auto Diffon 11-15-2022 Basophils/100 WBC (Bld) 0.7 % Normal 0.0-2.0 [facility] Comment on above: Order Comment: Order Added by Discern Expert. Performed By: #### 2 [id number] #### [facility] [address] [place] [address]393 Basophils/Leukocytes Auto (Bld) [Pure # fraction] 0.1 E9/L Normal 0.0-0.2 [facility] Comment on above: Order Comment: Order Added by Discern Expert. Performed By: #### 2 [id number] #### [facility] [address] [place] [address] 02029 Eosinophils/100 WBC (Bld) 2.3 % Normal 0.0-8.0 [facility] Comment on above: Order Comment: Order Added by Discern Expert. Performed By: #### 2 [id number] #### [facility] [address] [place] [address] 18101 Eosinophils/Leukocytes Auto (Bld) [Pure # fraction] 0.2 E9/L Normal 0.0-0.5 [facility] Comment on above: Order Comment: Order Added by Discern Expert. Performed By: #### 2 [id number] #### [facility] [address] [place] [address] 54242 Lymphocytes/100 WBC (Bld) 31.3 % Normal 14.0-50.0 [facility] Comment on above: Order Comment: Order Added by Discern Expert. Performed By: #### 2 [id number] #### [facility] [address] [place] [address] 9[address]11 Lymphocytes/Leukocytes Auto (Bld) [Pure # fraction] 2.2 E9/L Normal 1.0-4.0 [facility] Comment on above: Order Comment: Order Added by Discern Expert. Performed By: #### 2 [id number] #### [facility] [address] [place] [address] 36935 Monocytes/100 WBC (Bld) 7.5 % Normal 4.0-14.0 [facility] Comment on above: Order Comment: Order Added by Discern Expert. Performed By: #### 2 [id number] #### [facility] [address] [place] [address] 09339 Monocytes/Leukocytes Auto (Bld) [Pure # fraction] 0.5 E9/L Normal 0.2-1.0 [facility] Comment on above: Order Comment: Order Added by Discern Expert. Performed By: #### 2 [id number] #### [facility] [address] [place] [address] 40945 Neutrophils/100 WBC (Bld) 58.2 % Normal 36.0-75.0 [facility] Comment on above: Order Comment: Order Added by Discern Expert. Performed By: #### 2 [id number] #### [facility] [address] [place] [address] 09947 Neutrophils/Leukocytes Auto (Bld) [Pure # fraction] 4.1 E9/L Normal 2.0-7.5 [facility] Comment on above: Order Comment: Order Added by Discern Expert. Performed By: #### 2 [id number] #### [facility] [address] [place] [address] 25434 BNPon 11-15-2022 Int Ctr BNP Pass Normal [facility] Comment on above: Performed By: #### 2 [id number] #### [facility] [address] [place] [address] 23052 Natriuretic peptide B (Bld) [Mass/Vol] 12 pg/mL Normal 5-80 [facility] Comment on above: Performed By: #### 2 [id number] #### [facility] [address] [place] [address] 50692 CBC w/ Auto Diffon 3 Erythrocyte distribution width (RBC) [Ratio] 13.1 % Normal 10.9-14.2 [facility] Comment on above: Performed By: #### 2 [id number] #### [facility] [address] [place] [address] 50967 Hematocrit (Bld) [Volume fraction] 40.8 % Normal 34.0-46.0 [facility] Comment on above: Performed By: #### 2 [id number] #### [facility] [address] [place] [address] 01990 Hemoglobin (Bld) [Mass/Vol] 13.8 g/dL Normal 12.0-16.0 [facility] Comment on above: Performed By: #### 2 [id number] #### [facility] [address] [place] [address] 91121 MCH (RBC) [Entitic mass] 29.4 pg Normal 27.0-34.0 [facility] Comment on above: Performed By: #### 2 [id number] #### [facility] [address] [place] [address] 40864 MCHC (RBC) [Mass/Vol] 33.8 g/dL Normal 31.4-36.0 [facility] Comment on above: Performed By: #### 2 [id number] #### [facility] [address] [place] [address] 71314 MCV (RBC) [Entitic vol] 87.0 fL Normal 80.0-100.0 [facility] Comment on above: Performed By: #### 2 [id number] #### [facility] [address] [place] [address] Platelet mean volume (Bld) [Entitic vol] 10.4 fL Normal 6.4-10.8 [facility] Comment on above: Performed By: #### 2 [id number] #### [facility] [address] [place] [address] 88063 Platelets (Bld) [#/Vol] 223.0 E9/L Normal 150.0-500.0 [facility] Comment on above: Performed By: #### 2 [id number] #### [facility] [address] [place] [address] 44537 RBC (Bld) [#/Vol] 4.7 E12/L Normal 4.3-5.9 [facility] Comment on above: Performed By: #### 2 [id number] #### [facility] [address] [place] [address] 91060 WBC corrected for nucl RBC Auto (Bld) [#/Vol] 7.1 E9/L Normal 4.0-11.0 [facility] Comment on above: Performed By: #### 2 [id number] #### [facility] [address] [place] [address] CHEMISTRYOrdered By: SYSTEM SYSTEM on 11-15-2022 Albumin [...] mg/dL Normal 1.3 - 2 .4 mg/dL [facility] Remisol Potassium [Moles/Vol] 4.4 mmol/L Normal 3.5 [...] 13 mg/dL Normal 5 - 21 mg/dL [facility] Remisol Urea nitrogen/Creatinine [Mass ratio] 16 mg/mg Normal 10 - 20 [facility] Remisol CHEMISTRYOrdered By: Cece Telles on 11-15-2022 Natriuretic peptide B (Bld) [Mass/Vol] 12 pg/mL Normal 5 - 80 pg/mL [facility] Vitor VALENTINEon 11-15-2022 Albumin [Mass/Vol] 4.4 g/dL Normal 3.3-5.0 [facility] Comment on above: Performed By: #### 2 584445, 7861761, 2820313, 5606489, 7375050, 8462399, 07003471, 61545233 ####[facility] [address] [place] [address] Albumin/Globulin (S) [Mass conc ratio] 1.5 Normal 1.1-2.2 [facility] Comment on above: Performed By: #### 2 325303, 5962083, 2231740, 6388807, 3461062, 5967057, 61080160, 07867930 ####[facility] [address] [place] [address] ALP [Catalytic activity/Vol] 89 Int._Unit/L Normal 21-98 [facility] Comment on above: Performed By: #### 2 440508, 5680995, 5640647, 6330764, 7839998, 2399606, 81161388, 37183999 ####[facility] [address] [place] [address] ALT No additional P-5'-P [Catalytic activity/Vol] 14 Int._Unit/L Normal 6-46 [facility] Comment on above: Performed By: #### 2 690014, 8623717, 5658658, 1487339, 9946883, 7605029, 65274191, 42965090 ####[facility] [address] [place] [address] Anion gap [Moles/Vol] 9 mmol/L Normal 6-16 [facility] Comment on above: Performed By: #### 2 429129, 8881400, 9261679, 9881482, 6082146, 5611199, 42472362, 76842880 ####[facility] [address] [place] [address] AST [Catalytic activity/Vol] 14 Int._Unit/L Normal 5-43 [facility] Comment on above: Performed By: #### 2 393825, 8560366, 2733282, 2916189, 2056446, 1420425, 65033291, 09715146 ####[facility] [address] [place] [address]316 Bilirubin [Mass/Vol] 0.4 mg/dL Normal 0.0-1.1 [facility] Comment on above: Performed By: #### 2 074871, 0208114, 9672092, 9954824, 9198023, 4247244, 96190225, 57966278 ####[address] [place] [address] Calcium [Mass/Vol] 9.9 mg/dL Normal 8.9-11.1 [facility] Comment on above: Performed By: #### 2 340591, 5620583, 3517123, 9953126, 8889458, 4137009, 21816387, 33262486 ####[facility] [address] [place] [address] Chloride [Moles/Vol] 112 mmol/L High 101-111 [facility] Comment on above: Performed By: #### 2 050670, 1375261, 5786873, 2239791, 1978010, 9110148, 19487089, 83037912 ####[facility] [address] [place] [address] CO2 [Moles/Vol] 23 mmol/L Normal 21-31 [facility] Comment on above: Performed By: #### 2 177501, 7793099, 0221361, 2818504, 6015422, 0251836, 12636065, 06001895 ####[facility] [address] [place] [address] Creatinine [Mass/Vol] 0.8 mg/dL Normal 0.5-1.3 [facility] Comment on above: Performed By: #### 2 572555, 0809635, 7792099, 2849286, 9243388, 2408763, 76161903, 54685433 ####[facility] [address] [place] [address] Globulin (S) [Mass/Vol] 3.0 g/dL Normal 1.4-4.0 [facility] Comment on above: Performed By: #### 2 382935, 8648117, 3399471, 4624753, 7536950, 0961049, 91999571, 00284871 ####[facility] [address] [place] [address] Glucose [Mass/Vol] 86 mg/dL Normal 55-199 [facility] Comment on above: Result Comment: If t his glucose result represents a fasting glucose, interpretation should refer to the following reference range: 55-99 mg/dL Performed By: #### 2 393581, 7954784, 7658194, 6558523, 0299365, 0159727, 41916588, 06994565 ####[facility] [address] [place] [address] Potassium [Moles/Vol] 4.4 mmol/L Normal 3.5-5.3 [facility] Comment on above: Performed By: #### 2 801804, 6500850, 2694918, 6111412, 0933685, 1628499, 94254002, 69776001 ####[facility] [place] [address] Protein [Mass/Vol] 7.4 g/dL Normal 6.0-7.8 [facility] Comment on above: Performed By: #### 2 480539, 9202468, 3521106, 3065873, 8480330, 8059588, 23172762, 86722161 ####[facility] [address] [place] [address] Sodium [Moles/Vol] 140 mmol/L Normal 135-145 [facility] Comment on above: Performed By: #### 2 378476, 0323461, 8625602, 8449211, 7393024, 4882441, 53814735, 06899284 ####[facility] [address] [place] [address] Urea nitrogen [Mass/Vol] 13 mg/dL Normal 5-21 [facility] Comment on above: Performed By: #### 2 206608, 7706238, 2279119, 9530962, 1959371, 3159138, 28300463, 40284363 ####[facility] [address] [place] [address] Urea nitrogen/Creatinine [Mass ratio] 16 No Units Normal 10-20 [facility] Comment on above: Performed By: #### 2 392759, 1069701, 0446553, 8857668, 7052195, 2989774, 87406100, 67136421 ####[address] [place] [address] Family Medicine Office/Clini c Noteon 11-15-2022 Family Medicine Office/Clinic Note Chief Complaint left breast and arm pain HPI Staff 26 yr old female here for left arm pain and left breast pain. Also c/o midsternal chest pain. 3 days. Denies breathing issues. pt states she quit breast feeding 1 week ago. Denies breast discharge. History of Present Illness I have reviewed and verified the staff HPI to be accurate for this encounter. Portions of this record have been created with voice recognition software. Occasional wrong-word or ?wtavl-s-pyse? substitutions may have occurred due to the inherent limitations of voice recognition software. 26 yo female presents today with cc of possible mastitis. Pt states she discontinued breast feeding x 1 week ago. She weaned for several weeks. She states over the past x3 days she has had some left-sided breast tenderness discomfort with amrj-wiw-ihxpytn feeling across the left axilla and down into the left arm. She thought it was musculoskeletal she states she was also having some issues with the back of her neck and mid back. She states she has been having panic attacks which she relates to her anxiety and felt that some of also the midsternal chest discomfort and musculoskeletal pain could be anxiety related. She denies midsternal chest pain radiating to left arm. She denies any chest pain at this time denies shortness of breath or difficulty breathing. She takes a baby aspirin daily for history of migraine or headaches. She denies any history of DVT or PE. She denies any history of diabetes high blood pressure or high cholesterol. She denies any cardiac history such as CA or CHF. Denies any significant family history. Patient states she was a former smoker quit about 5 years ago. Patient is present by herself with her almost 4-year-old and a [id number]. Patient states she is stressed and she is unable to go to the emergency department with 2 children and does not have support until after. 6 PM this evening. Patient states she also has intermittent palpitations which she has noticed intermittently over the past 1 month but has not seen primary care provider and related to that. She denies any large amounts of caffeine or chocolate. Denies any history of thyroid issue. She denies palpitations currently at this time. States they are intermittent and mostly at nighttime. She states she monitors most of the muscle pain in the evening to after dinner. Unsure if this is related to just being a mom and musculoskeletal but would like to rule out cardiac issue today. She denies any fever or chills with concern for mastitis denies any nipple discharge. States she is able to express only very small amounts in the shower denies any redness red streaking of the left breast. Denies weakness. She states she has been able to sleep more as her children is sleeping through the night. She denies any recent sick contacts or recent travel. She denies any abdominal pain nausea vomiting or diarrhea. She denies any dysuria hematuria urinary urgency or frequency. She denies any falls trauma or injuries to the left arm neck or back. She states that she does have muscle relaxer at home that she takes only as needed for neck discomfort which was prescribed to her November 03. She states the neck discomfort was right-sided following a chiropractor visit. She she has no other concerns at this time. She has no other concerns at this time. Review of Systems PHQ Score Initial Depression Screen Score: 0 ROS negative unless otherwise stated in HPI. Physical Exam Vitals & Measurements T: 36.5 ?C(Temporal Artery) HR: 70(Peripheral) BP: 122/78 SpO2: 99% HT: 67 in HT: 170 cm WT: 71.2 kg WT: 156.64 lb BMI: 24.64 General: Well developed, well nourished, in no acute distress Eyes: Bilateral conjunctive a within normal limits no injection. Ears: Bilateral tympanic membranes are within normal limits no erythema or bulging. Nose: No deformity, discharge, inflammation, or lesions Mouth: Tonsils appear within normal limits bilaterally no erythema edema or exudate. Uvula is midline no signs of peritonsillar abscess no trismus or drooling. Neck: No localized cervical spine or paraspinal tenderness. Neck is supple able to touch her chin to her chest. No focal deficits. Lungs: Lung sounds are clear bilaterally. No wheezing rhonchi or crackles on exam. Cardio: S1, S2, regular rhythm. No murmurs gallops or rubs. Reproducible chest wall pain at the left anterior chest wall underneath the left breast wrapping around the left axilla region. Abdomen: not assessed Musculoskeletal: Normal alignment of the spinal column. No step-offs or deformities. No localized thoracic or lumbar spine tenderness. No paraspinal tenderness. No CVA tenderness. Patient has slight discomfort to left and right side of the mid back which seems musculoskeletal in nature pain wraps around the left side of the ribs under the left axilla into the left anterior rib region. There are no overlying rashes lacerations abrasions lesions no erythema or concern for cellulitis at this time. The (more content not included)... Normal [facility] Comment on above: Result Comment: Elec tronically Signed By: Chadwick IVY, Drake Terrazas\.br\Date and Time Signed: 11/15/22 11:33 EDT HEMATOLOGYOrdered By: SYSTEM SYSTEM on 11-15-2022 Basophils/100 WBC (Bld) 0.7 % Normal 0.0 - 2.0 % [facility]SS Basophils/Leukocytes Auto (Bld) [Pure # fraction] 0.1 E9/L Normal 0.0 - 0.2 E9/L [facility] Eosinophils/100 WBC (Bld) 2.3 % Normal 0.0 - 8.0 % [facility] Eosinophils/Leukocytes Auto (Bld) [Pure # fraction] 0.2 E9/L Normal 0.0 - 0.5 E9/L [facility] Lymphocytes/100 WBC (Bld) 31.3 % Normal 14.0 - 50.0 % [facility] Lymphocytes/Leukocytes Auto (Bld) [Pure # fraction] 2.2 E9/L Normal 1.0 - 4.0 E9/L [facility] Monocytes/100 WBC (Bld) 7.5 % Normal 4.0 - 14.0 % [facility] Monocytes/Leukocytes Auto (Bld) [Pure # fraction] 0.5 E9/L Normal 0.2 - 1.0 E9/L [facility] Neutrophils/100 WBC (Bld) 58.2 % Normal 36.0 - 75.0 % [facility] Neutrophils/Leukocytes Auto (Bld) [Pure # fraction] 4.1 E9/L [...] 10.4 fL Normal 6.4 - 10.8 fL [facility] Platelets (Bld) [#/Vol] 223.0 E9/L Normal 150.0 - 500.0 E9/L [facility] RBC (Bld) [#/Vol] 4.7 E12/L Normal 4.3 - 5.9 E12/L [facility] WBC corrected for nucl RBC Auto (Bld) [#/Vol] 7.1 E9/L Normal 4.0 - 11.0 E9/L [facility] Magnesiumon 11-15-2022 Magnesium [Mass/Vol] 2.2 mg/dL Normal 1.3-2.4 [facility] Comment on above: Performed By: #### 2 [id number] #### [facility] [address] [place] [address] PT - Progress Noteson 2022 PT - Progress Notes [id number]. 00CD:127 Normal [facility] Patient Educationon 11-16-19 23 Patient Education Emergency Medicine Palpitations Palpitations are feelings that your heartbeat is not normal. Your heartbeat may feel like it is: ? Uneven (irregular). ? Faster than normal. ? Fluttering. ? Skipping a beat. This is usually not [...] may be told to avoid these things: ? Drinks that have caffeine in them, such as coffee, tea, soft drinks, and energy drinks. ? Chocolate. ? Alcohol. ? Diet pills. Lifestyle ? Try to lower your stress. These things can help you relax: ? Yoga. ? Deep breathing and meditation. ? Guided imagery. This is using words and images to create positive thoughts. ? Exercise, including swimming, jogging, and walking. Tell your doctor if you have more abnormal heartbeats when you are active. If you have chest pain or feel short of breath with exercise, do not keep doing the exercise until you are seen by your doctor. ? Biofeedback. This is using your mind to control things in your body, such as your heartbeat. ? Get plenty of rest and sleep. Keep a regular bed time. ? Do not use drugs, such as cocaine or ecstasy. Do not use marijuana. ? Do not smoke or use any products that contain nicotine or tobacco. If you need help quitting, ask your doctor. General instructions ? Take jipg-ave-tssepfd and prescription medicines only as told by your doctor. ? Keep all follow-up visits. You may need more tests if palpitations do not go away or get worse. Contact a doctor if: ? You keep having fast or uneven heartbeats for a long time. ? Your symptoms happen more often. Get help right away if: ? You have chest pain. ? You feel short of breath. ? You have a very bad headache. ? You feel dizzy. ? You faint. These symptoms may be an emergency. Get help right away. Call your local emergency services (911 in the [place] ? Do not wait to see if the symptoms will go away. ? Do not drive yourself to the hospital. Summary ? Palpitations are feelings that your heartbeat is uneven or faster than normal. It may feel like your heart is fluttering or skipping a beat. ? Avoid food and drinks that may cause this condition. These include caffeine, chocolate, and alcohol. ? Try to lower your stress. Do not smoke or use drugs. ? Get help right away if you faint, feel dizzy, feel short of breath, have chest pain, or have a very bad headache. This information is not intended to replace advice given to you by your health care provider. Make sure you discuss any questions you have with your health care provider. Document Revised: 07/15/2021 Document Reviewed: 07/15/2021 [employer] Patient Education ? 2022 [employer] Obstetrics and Gynecology Breast Tenderness Breast tenderness is a common problem for women of all ages, but may also occur in men. Breast tenderness may range from mild discomfort to severe pain. In women, the pain usually comes and goes with the menstrual cycle, but it can also be constant. Breast tenderness has many possible causes, including hormone changes, infections, and taking certain medicines. You may have tests, such as a mammogram or an ultrasound, to check for any unusual findings. Having breast tenderness usually does not mean that you have breast cancer. Follow these instructions at home: Managing pain and discomfort ? If directed, put ice to the painful area. To do this: ? Put ice in a plastic bag. ? Place a towel between your skin and the bag. ? Leave the ice on for 20 minutes, 2?3 times a day. ? Wear a supportive bra, especially during exercise. You may also want to wear a supportive bra while sleeping if your breasts are very tender. Medicines ? Take nuee-qaz-qxieyzh and prescription medicines only as told by your health care provider. If the cause of your pain is infection, you may be prescribed an antibiotic medicine. ? If you were prescribed an antibiotic, take it as told by your health care provider. Do not stop taking the antibiotic even if you start to feel better. Eating and drinking ? Your health care provider may recommend that you lessen the amount of fat in your diet. You can do this by: ? Limiting fried foods. ? Cooking foods using methods such as baking, boiling, grilling, and broiling. ? Decrease the amount of caffeine in your diet. Instead, drink more water and choose caffeine-free drinks. General instructions ? Keep a log of the days and times when your breasts are most tender. ? Ask your health care provider how to do b (more content not included)... Normal [facility] Physician Orderon 11-15-2022 Physician Order [id number] .[id number]:127 Normal [facility] TSHon 11-15-2022 TSH Qn 2.24 m[IU]/L Normal 0.34-5.60 [facility] Comment on above: Performed By: #### 2 [id number] #### [facility] [address] [place] [address] Troponinon 11-15-2022 Troponin I.cardiac [Mass/Vol] ng/mL Low 10.10-27.10 [facility] Comment on above: Result Comment: The 95% CI (Confidence Interval) PPV (Positive Predictive Value) for myocardial infarction in females is 38 pg/mL, in males 51 pg/mL. The results should be used in conjunction with clinical conditions of myocardial infarction. (Access High Sensitivity Troponin I Instructions For Use, Naty Nino, October 2017) Performed By: #### 2 [id number] #### [facility] [address] [place] [address] eGFRon 11-15-2022 GFR/1.73 sq M.predicted among non-blacks MDRD (S/P/Bld) [Vol rate/Area] 104 mL/min/1.73 m2 Normal >=59 [facility] Comment on above: Order Comment: Order added by Discern Expert. Result Comment: Corporate Law Assistant lina kidney disease could be indicated at eGFR's of less than 60 mL/min/1.73m2. Kidney failure is indicated at less than 15 mL/min/1.73m2. Performed By: #### 2 [id number] ####[facility] [id number] [place] [address] Insurance Correspondenceon 0 11-11-2022 Insurance Correspondence [id number] 1.00CD:127 Normal [facility] Ambulatory Visit Summaryon 0 11-09-2022 Ambulatory Visit Summary KASSIE DIALLO :1995 Visit Date:11/09/2022 Ambulatory Visit Instructions Your Diagnosis Neck muscle strain BMI 24.0-24.9, adult Your Care Team Attending Physician - Will Mora Primary Care Physician - Will Mora This Is Your Medications List [facility] Prescription ([facility] ASPIRIN EC 81 MG TABLET) baclofen (baclofen 10 mg Tab) Procedures Performed Betamethasone (02/01/2017), Betamethasone (01/31/2017), lacerated Kidney (2007), Right Hand Surgery. Discharge Vitals Heart Rate (Peripheral) 76 Respiratory Rate 18 Blood Pressure 118/76 Height 172.0 cm Height 68 in Weight 71.5 kg Weight 157.3 lb BMI 24.17 Medications What How Much When Why Instructions Unchanged baclofen (baclofen 10 mg Tab) 1 Tablets By Mouth 3 times a day Cervical strain Duration: 10 Days If patient prefers she can take 1 tablet 1 to 2 hours before bedtime instead of taking 3 times daily. Unchanged Misc Prescription ([facility] ASPIRIN EC 81 MG TABLET) See instructions 0 Allergies clindamycin (Hives) Problems Ongoing - Any problem that you are currently receiving treatment for. Amenorrhea, secondary Bacterial conjunctivitis of right eye Bipolar 1 disorder, mixed, moderate Bipolar disorder Cellulitis, leg Cervical sprain Cervical strain Chronic abdominal pain Depression Migraines Neck muscle strain Pelvic pain Peroneal neuritis PTSD (post-traumatic stress disorder) Right hand pain Screening for cardiovascular condition Screening for thyroid disorder Smoker Vulvovaginitis Historical - Any problem that you are no longer receiving treatment for. Depression Laceration of kidney without open wound into abdominal cavity orthostatic fainting Pseudoseizures Suicidal ideation Normal [facility] Family Medicine Office/Clini c Noteon 11-09-2022 Family Medicine Office/Clinic Note HPI Staff Kassie is a 26 year old female presenting to [facility] care Establish Care: History: Any previous diagnosis: Bipolar, depression, migraines, PTSD, orthostatic syncope, Fibromyalgia History of seeing any specialist: When was your last doctors visit: Last provider: Dr Roberts Any recent labs: 11/01/22 Health Maintenance UTD: Colonoscopy: 6 years ago normal Mammogram: no Pelvic/Pap: 6 months ago normal Acute: Current issues/complaints: [facility] on 11/01/22 for Parethesia RUE pt was at chiropractor and was having neck adjusted and began having numbness. stroke testing negative pt states neck feels very tight. pt would like referral to PT , pt has done yoga and stretching due to neck tightness History of Present Illness pt presents today for follow up on neck injury. she has had chronic neck pain for years. has been going to chiropractor. after going to chiropractor on 11/01 she started having numbness of RUE. stroke was ruled out. Review of Systems ROS - Provider Constitutional: no fever, no chills, no sweats, no fatigue Respiratory: no shortness of breath, no cough, no orthopnea, no wheezing. Cardiovascular: no chest pain, no palpitations, no edema. Neurologic: no headache, no dizziness, no numbness, no weakness. Physical Exam Vitals & Measurements HR: 76(Peripheral) RR: 18 BP: 118/76 SpO2: 98% HT: 68 in HT: 172.0 cm WT: 71.5 kg WT: 157.3 lb BMI: 24.17 General: alert, no acute distress ENMT: oral mucosa moist, no pharyngeal erythema or exudate Cardiovascular: regular rate and rhythm, normal peripheral perfusion Respiratory: Lungs CTA, respirations non labored Extremities: no deformity, no trauma Neurological: oriented x 4, LOC appropriate for age, CN II-XII intact, motor strength equal & normal bilaterally, speech normal Assessment/Plan 1. Neck muscle strain (S16.1XXA: Strain of muscle, fascia and tendon at neck level, initial encounter) pt suffers from chronic neck pain. had been going to chiropractor after being adjusted she started having numbness in RUE. she went to ER. they ruled out stroke and diagnosed her with muscle strain of neck. will refer to PT. medrol dose pack sent to pharmacy. all questions answered. RTC as needed Ordered: methylPREDNISolone, = 1 packet(s), Oral, As Directed, as directed on package labeling, X 6 day(s), # 21 tab(s), Refills(s) 0, Pharmacy: [facility]/pharmacy #[id number], 172, cm, 11/09/22 11:39:00 EDT, Height/Length Dosing, 71.5, kg, 11/09/22 11:39:00 EDT, Weight Dosing 2. BMI 24.0-24.9, adult (Z68.24: Body mass index [BMI] 24.0-24.9, adult) bmi education complete Ordered: methylPREDNISolone, = 1 packet(s), Oral, As Directed, as directed on package labeling, X 6 day(s), # 21 tab(s), Refills(s) 0, Pharmacy: [facility]/pharmacy #[id number], 172, cm, 11/09/22 11:39:00 EDT, Height/Length Dosing, 71.5, kg, 11/09/22 11:39:00 EDT, Weight Dosing Follow-up No qualifying data available Problem List/Past Medical History Ongoing Amenorrhea, secondary Bacterial conjunctivitis of right eye Bipolar 1 disorder, mixed, moderate Bipolar disorder Cellulitis, leg Cervical sprain Cervical strain Chronic abdominal pain Depression Migraines Neck muscle strain Pelvic pain Peroneal neuritis PTSD (post-traumatic stress disorder) Right hand pain Screening for cardiovascular condition Screening for thyroid disorder Smoker Vulvovaginitis Historical Depression Laceration of kidney without open wound into abdominal cavity orthostatic fainting Pseudoseizures Suicidal ideation Procedure/Surgical History Betamethasone (02/01/2017), Betamethasone (01/31/2017), lacerated Kidney (2007), Right Hand Surgery. Medications baclofen 10 mg Tab, 10 mg= 1 tab(s), Oral, TID [facility] ASPIRIN EC 81 MG TABLET, See Instructions Medrol 4 mg Tab, 1 packet(s), Oral, As Directed Allergies clindamycin (Hives) Social History Alcohol - Denies Alcohol Use, 04/26/2019 Current, Beer, Wine, 1-2 times per month, Household alcohol concerns: No., 04/15/2020 Employment/School - Not employed or in school, 01/31/2017 Exercise - Occasional exercise, 06/15/2013 Home/Environment - No Risk, 02/07/2017 Nutrition/Health - Low Risk, 02/07/2017 Sexual - No Risk, 02/07/2017 Substance Abuse - Denies Substance Abuse, 04/26/2019 Tobacco - Denies Tobacco Use, 09/29/2022 Former smoker, quit more than 30 days ago Tobacco Use:. Current vaping or e-cigarette use Smokeless Tobacco Use:. Vaping, Started age 14.0 Years. Stopped age 21 Years. Ready to change: No. Household tobacco concerns: No., 11/09/2022 Family History Asthma: Mother and Sister. Depression: Father. Migraine: Father. Immunizations Vaccine Date Status Comments influenza virus vaccine, inactivated - Not Given Patient Refuses influenza virus vaccine, inactivated 01/26/2019 Given Other (see comment) influenza virus vaccine, inactivated 03/31/2018 Recorded diphtheria/pertussis, ac (more content not included)... Normal [facility] Comment on above: Result Comment: Elec tronically Signed By: Will Mora\.br\Date and Time Signed: 11/09/22 12:37 EDT Physician Referralon 023 Physician Referral [id number]. 00CD:127 Normal [facility] Discharge Instructionson Discharge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 above: Performed By: #### 2 [id number] #### [facility] [address] [place] [address] Triglyceride [Mass/Vol] 71 mg/dL Normal <=149 [facility] Comment on above: Performed By: #### 2 [id number] #### [facility] [address] [place] [address] Patient Education - Texton 0 11-02-2022 Patient Education - Text Stroke (Cerebrovascular Accident) A stroke is acute of brain tissue, and it is a neurologic emergency. A stroke can cause permanent loss of function of the central nervous system (brain). If the symptoms of a stroke end without complications in 24 hours, it is diagnosed as [...] factors for stroke, work with your health career and guidance counselor to control them. High Blood Pressure: High [...] Please call [facility]essation [facility] at [phone] ([facility]), or [phone], ext. [phone] Diabetes: Work with your healthcare professional to keep your blood sugar under control. Check your blood sugar and take the results to your [...] has been damaged by a fatty buildup inside the artery wall. Discuss ways to manage this with your health care provider. Atrial Fibrillation (A Fib): In A fib, your heart does not have a normal beat. This may allow clots to form and puts you at a greater risk for having a stroke. Work with your health care provider to control your A fib. Your doctor may order special medication that helps prevent clots from forming. High blood cholesterol or high blood fats: High cholesterol increases your risk of stroke. Exercise regularly, but talk to your health care provider first. A diet low in fat and cholesterol can help. If you have any questions about a low fat, low cholesterol diet, you can call our [facility] technical maintenance technician at [phone] Ext. [phone]. The goal for total cholesterol is less than 200, and for LDL or the bad cholesterol is less than 100. Lifestyle Management: You increase your risk of stroke if you are overweight or obese, are not very active, or drink too much alcohol. Enjoy a diet rich in fruits and vegetables. Exercise regularly and drink alcohol in moderation or no more than two drinks a day for men and no more than one drink a day for non- women, or don't drink at all. This will help decrease your risk of stroke. Oral Contraceptives: Taking control pills or the pill can be a risk factor for stroke especially if you smoke. Discuss using the oral contraceptives and your risk of stroke with your health career and guidance counselor. TREATMENT TIME IS OF THE ESSENCE! Medications to dissolve a blood clot can only be used within four and a half hours of the onset of symptoms. After that time, treatment of stroke depends on duration of symptoms, severity, and cause. Medications and diet measures may be used to address diabetes, high blood pressure, and other risk factors. Physical therapy, speech therapy, and occupational therapy specialists will assess you and work to improve any functions impaired by the stroke. Measures will be taken to prevent short and halfway complications, including aspiration pneumonia, blood clots in the legs, bedsores, and f (more content not included)... Normal [facility] TSH With T4fr Reflexon 11-02 TSH Qn 2.85 m[IU]/L Normal 0.34-5.60 [facility] Comment on above: Performed By: #### 2 [id number] #### [facility] [address] [place] [address] Auto Diffon 11-01-2022 Basophils/100 WBC (Bld) 1.3 % Normal 0.0-2.0 [facility] Comment on above: Order Comment: Order Added by Discern Expert. Performed By: #### 2 [id number], [id number], 4203670, 0963893, 3857609, 2775435, [id number] #### [facility] [address] [place] [address] Basophils/Leukocytes Auto (Bld) [Pure # fraction] 0.1 E9/L Normal 0.0-0.2 [facility] Comment on above: Order Comment: Order Added by Discern Expert. Performed By: #### 2 [id number], [id number], 8261846, 4445647, 2096871, 3471396, [id number] #### [facility] [address] [place] [address] Eosinophils/100 WBC (Bld) 2.7 % Normal 0.0-8.0 [facility] Comment on above: Order Comment: Order Added by Discern Expert. Performed By: #### 2 [id number], [id number], 6117965, 3889231, 3873473, 4344190, [id number] #### [facility] [address] [place] [address] Eosinophils/Leukocytes Auto (Bld) [Pure # fraction] 0.2 E9/L Normal 0.0-0.5 [facility] Comment on above: Order Comment: Order Added by Discern Expert. Performed By: #### 2 050055, [id number], 3421065, 0674194, 3540503, 9690825, [id number] #### [facility] [address] [place] [address] Lymphocytes/100 WBC (Bld) 30.1 % Normal 14.0-50.0 [facility] Comment on above: Order Comment: Order Added by Discern Expert. Performed By: #### 2 838539, 58124789, 6664979, 6251373, 3235170, 8732476, 33804910 #### [facility] [address] [place] [address] Lymphocytes/Leukocytes Auto (Bld) [Pure # fraction] 2.3 E9/L Normal 1.0-4.0 [facility] Comment on above: Order Comment: Order Added by Discern Expert. Performed By: #### 2 187135, [id number], 4058488, 1053017, 1359159, 3107187, [id number] #### [facility] [address] [place] [address] Monocytes/100 WBC (Bld) 7.1 % Normal 4.0-14.0 [facility] Comment on above: Order Comment: Order Added by Discern Expert. Performed By: #### 2 839828, 17496575, 5663212, 6272668, 0330214, 5071626, [id number] #### [facility] [address] [place] [address] Monocytes/Leukocytes Auto (Bld) [Pure # fraction] 0.5 E9/L Normal 0.2-1.0 [facility] Comment on above: Order Comment: Order Added by Discern Expert. Performed By: #### 2 [id number], [id number], 8632676, 5281324, 8376510, 3906989, 69074910 #### [facility] [address] [place] [address] Neutrophils/100 WBC (Bld) 58.8 % Normal 36.0-75.0 [facility] Comment on above: Order Comment: Order Added by Raúl Expert. Performed By: #### 2 095767, 21730196, 2489665, 2750745, 1196365, 1788712, 47011559 #### [facility] [address] [place] [address] Neutrophils/Leukocytes Auto (Bld) [Pure # fraction] 4.5 E9/L Normal 2.0-7.5 [facility] Comment on above: Order Comment: Order Added by Raúl Expert. Performed By: #### 2 726987, [id number], 2119896, 4740757, 4280573, 0312755, 23846324 #### [facility] [address] [place] [address] BMPon 11-01-2022 Creatinine [Mass/Vol] 0.8 mg/dL Normal 0.5-1.3 [facility] Comment on above: Performed By: #### 2 186791, 43903927, 4778776, 1268155, 7477743, 0459546, 38301799 #### [facility] [address] [place] [address] Urea nitrogen [Mass/Vol] 12 mg/dL Normal 5-21 [facility] Comment on above: Performed By: #### 2 [id number], [id number], 2630672, 5475924, 1537473, 9525242, [id number] #### [facility] [address] [place] [address] Urea nitrogen/Creatinine [Mass ratio] 15 No Units Normal 10-20 [facility] Comment on above: Performed By: #### 2 309361, [id number], 1114484, 2441148, 6103445, 5137153, [id number] #### [facility] [address] [place] [address] Anion gap [Moles/Vol] 10 mmol/L Normal 6-16 [facility] Comment on above: Performed By: #### 2 466827, 92764171, 1275054, 5144186, 4108432, 4411287, 13978181 #### [facility] [address] [place] [address] Calcium [Mass/Vol] 9.5 mg/dL Normal 8.9-11.1 [facility] Comment on above: Performed By: #### 2 810164, 54695776, 6937203, 8358691, 8311565, 7531529, 95785154 #### [facility] [address] [place] [address] Chloride [Moles/Vol] 114 mmol/L High 101-111 [facility] Comment on above: Performed By: #### 2 791865, 23745306, 9733351, 2051535, 0935458, 4824035, 11357899 #### [facility] [address] [place] [address] CO2 [Moles/Vol] 20 mmol/L Low 21-31 [facility] Comment on above: Performed By: #### 2 708376, 13981467, 5051911, 8199680, 4379671, 7659462, 22872497 #### [facility] [address] [place] [address] Glucose [Mass/Vol] 99 mg/dL Normal 55-199 [facility] Comment on above: Result Comment: If t his glucose result represents a fasting glucose, interpretation should refer to the following reference range: 55-99 mg/dL Performed By: #### 2 323700, 73897299, 1858027, 1205154, 8075747, 8678133, 83198220 #### [facility] [address] [place] [address] Potassium [Moles/Vol] 3.9 mmol/L Normal 3.5-5.3 [facility] Comment on above: Performed By: #### 2 606135, 84424474, 6224266, 8302636, 9294606, 2703379, 02019112 #### [facility] [address] [place] [address] Sodium [Moles/Vol] 140 mmol/L Normal 135-145 [facility] Comment on above: Performed By: #### 2 604502, 46330543, 8236610, 1162606, 4286615, 8822750, 89302559 #### [facility] [address] [place] [address] CBC w/ Auto Diffon 3 Erythrocyte distribution width (RBC) [Ratio] 13.5 % Normal 10.9-14.2 [facility] Comment on above: Performed By: #### 2 888957, 05386678, 4844258, 9484920, 2486864, 1317486, 67655788 #### [facility] [address] [place] [address] Hematocrit (Bld) [Volume fraction] 40.4 % Normal 34.0-46.0 [facility] Comment on above: Performed By: #### 2 970836, 93648360, 6141193, 8018181, 6744300, 7863256, 24083164 #### [facility] [address] [place] [address] Hemoglobin (Bld) [Mass/Vol] 13.7 g/dL Normal 12.0-16.0 [facility] Comment on above: Performed By: #### 2 794425, 70178036, 6387913, 5805439, 7107374, 2809380, 36001308 #### [facility] [address] [place] [address] MCH (RBC) [Entitic mass] 29.5 pg Normal 27.0-34.0 [facility] Comment on above: Performed By: #### 2 435031, 05669783, 9263682, 3021532, 5427581, 8504559, 24103505 #### [facility] [address] [place] [address] MCHC (RBC) [Mass/Vol] 34.0 g/dL Normal 31.4-36.0 [facility] Comment on above: Performed By: #### 2 078378, 45403967, 0693160, 2117205, 4226965, 8517441, 28306353 #### [facility] [address] [place], [place] [address] MCV (RBC) [Entitic vol] 86.7 fL Normal 80.0-100.0 [facility] Comment on above: Performed By: #### 2 424651, 27778751, 8020382, 6878663, 0232654, 3920560, 73355623 #### [facility] [address] [place] [address] Platelet mean volume (Bld) [Entitic vol] 8.3 fL Normal 6.4-10.8 [facility] Comment on above: Performed By: #### 2 595227, 27770468, 8266639, 1136078, 6634782, 6380333, 65454008 #### [facility] [address] [place] [address] Platelets (Bld) [#/Vol] 236.0 E9/L Normal 150.0-500.0 [facility] Comment on above: Performed By: #### 2 327304, 83058164, 3419355, 3310269, 2918344, 1927984, 50598812 #### [facility] [address] [place] [address] RBC (Bld) [#/Vol] 4.7 E12/L Normal 4.3-5.9 [facility] Comment on above: Performed By: #### 2 280374, 88737340, 5282383, 4273317, 8429151, 9875292, 33516290 #### [facility] [address] [place] [address] WBC corrected for nucl RBC Auto (Bld) [#/Vol] 7.7 E9/L Normal 4.0-11.0 [facility] Comment on above: Performed By: #### 2 670995, 56666076, 9025265, 4270652, 4481621, 5697015, 73026553 #### [facility] [address] [place] [address] CHEMISTRYOrdered By: SYSTEM SYSTEM on 11-01-2022 Anion gap [Moles/Vol] 10 mmol/L Normal 6 - 16 mEq/L [facility] Remisol Calcium [Mass/Vol] 9.5 mg/dL Normal 8.9 - 11. 1 mg/dL [facility] Chloride [Moles/Vol] 114 mmol/L High 101 - 1 11 mmol/L [facility] CO2 [Moles/Vol] 20 mmol/L Low 21 - 31 mmol/L [facility] Creatinine [Mass/Vol] 0.8 mg/dL Normal 0.5 - 1.3 mg/dL [facility] GFR/1.73 sq M.predicted among non-blacks MDRD (S/P/Bld) [Vol rate/Area] 104 mL/min/1.73 m2 Normal >=59mL/min/1 .73 m2 [facility] Chem S Glucose [Mass/Vol] 99 mg/dL Normal 55 - 199 mg/dL [facility] Potassium [Moles/Vol] 3.9 mmol/L Normal 3.5 - 5.3 mmol/L [facility] Sodium [Moles/Vol] 140 mmol/L Normal 135 - 145 mmol/L [facility] Troponin I.cardiac [Mass/Vol] 2.50 pg/mL Low 10.10 - 27.10 pg/mL [facility] Remisol Urea nitrogen [Mass/Vol] 12 mg/dL Normal 5 - 21 mg/dL [facility] Remisol Urea nitrogen/Creatinine [Mass ratio] 15 mg/mg Normal 10 - 20 [facility] Remisol CHEMISTRYOrdered By: Lab ROP User on 11-01-2022 Glucose [Mass/Vol] 109 mg/dL High 55 - 99 mg/dL [facility] POC Subsection POC Device SN [id number] Invalid Interpretation Code [facility] POC Subsection POC User ID [id number] Invalid Interpretation Code [facility] POC Subsection POC Username [email or web address] Invalid Interpretation Code [facility] POC Subsection COAGULATIONOrdered By: Marce Douglass on 11-01-2022 aPTT Coag (PPP) [Time] 34.8 s Normal 25.1 - 36.5 second(s) [facility] Auto Coag INR Coag (PPP) [Relative time] 1.1 {INR} Invalid Interpretation Code [facility] Auto Coag PT Coag (PPP) [Time] 12.3 s Normal 9.4 - 1 2.5 second(s) [facility] Auto Coag CT Head or Brain w/o Contras ton 11-01-2022 CT Head or Brain w/o Contrast Exam Date/Time: 11/01/2022 13:54 EDT Reason for Exam: Neuro deficit, acute, stroke suspected Report IMPRESSION: NEGATIVE CT SCAN OF THE BRAIN. CLINICAL HISTORY: Neuro deficit, acute, stroke suspected. Right-sided numbness and weakness. COMPARISON: 09/29/2022. COMMENT: Unenhanced images were obtained. The ventricles and basal cisterns and appear within normal limits. There is no mass effect nor midline shift. No abnormal attenuation within the brain is noted. There is no evidence of recent intracranial hemorrhage nor extra-axial hematoma. No mass lesion is evident. No skull fracture is noted. There has been no significant change when compared to the prior exam. All CT scans at this facility use dose modulation, iterative reconstruction, and/or weight based dosing when appropriate to reduce radiation dose to as low as reasonably achievable. Ordering Provider: Karie Newman FINAL REPORT Dictated: 11/01/2022 2:02 pm Sohan Funk M.D. Signed (Electronic Signature): 11/01/2022 2:02 pm Signed by: Sohan Funk M.D. Transcribed by: ABIGAIL Technologist: SB Wet Read 11/01/2022 01:59 pm EDT, [place], Sohan Rice neg for bleed. Normal [facility] CTA Headon 11-01-2022 CTA Head Exam Date/Time: 11/01/2022 14:05 EDT Reason for Exam: Neuro deficit, acute, stroke suspected;Other (please specify) Report Please see CTA neck report regarding CTA head findings. Ordering Provider: Karie Newman FINAL REPORT Dictated: 11/01/2022 2:35 pm William Rubio DO Signed (Electronic Signature): 11/01/2022 2:35 pm Signed by: William Rubio DO Transcribed by: ABIGAIL Technologist: CROW Technical Comments GFR (mL/min/1/73m2) n/a age Contrast: Isovue 370 Contrast amount in ml's: 100 Normal [facility] CTA Neckon 11-01-2022 CTA Neck Exam Date/Time: 11/01/2022 14:05 EDT Reason for Exam: Neuro deficit, acute, stroke suspected;Other (please specify) Report IMPRESSION: CTA head: No aneurysm or high-grade stenosis. CTA neck: No dissection, aneurysm, or high-grade stenosis. Exam: CT angiography of the head CT angiography of the neck History: Right-sided numbness and weakness. . Technique: Axial images were obtained from the thoracic inlet through the [place] after administration of intravenous contrast. Multiplanar reformatted images and multiplanar maximum intensity projection images were obtained, as were postprocessed 3-D volume rendered images. Luminal narrowings are estimated using NASCET criteria. Comparison: Findings: CTA neck: There is a 4 vessel aortic arch with normal origins of the brachiocephalic, left common carotid and left subclavian arteries. The right vertebral artery arises from the right subclavian artery and the left vertebral artery arises from the aortic. No significant stenosis of the great vessel origins or the origin of the carotid or vertebral arteries. The bilateral common carotid arteries are of normal course and caliber. The bilateral internal and external carotid arteries are of normal course and caliber. The vertebral arteries are normal in course and caliber. No dissection, high grade stenosis or aneurysm. CTA head: Report The internal carotid arteries through the skull base are patent. The bilateral middle cerebral arteries through the trifurcation and opercular branches are patent. The vertebrobasilar system including the superior cerebellar and posterior cerebral arteries are patent. Posterior communicating arteries are patent. The bilateral anterior cerebral arteries and anterior communicating artery are patent. No aneurysm or high-grade stenosis. All CT scans at this facility use dose modulation, iterative reconstruction, and/or weight based dosing when appropriate to reduce radiation dose to as low as reasonably achievable. . Ordering Provider: Karie Newman FINAL REPORT Dictated: 11/01/2022 2:35 pm William Rubio DO Signed (Electronic Signature): 11/01/2022 2:35 pm Signed by: William Rubio DO Transcribed by: ABIGAIL Technologist: CROW Technical Comments GFR (mL/min/1/73m2) n/a age Contrast: Isovue 370 Contrast amount in ml's: 100 Normal [facility] Capillary Glucose POCon 10-06 Glucose [Mass/Vol] 109 mg/dL High 55-99 [facility] Comment on above: Performed By: #### 2 [id number] ####[facility] [address] [place] [address] Consent for Treatmenton 10-06 Consent for Treatment [id number] Normal [facility] ED Clinical Summaryon 2022 ED Clinical Summary [address] [address] ED Clinical Summary Person Information Name: KASSIE DIALLO/[facility] Age: 26 Years : 1995 Sex: Female Language: [place] PCP: NONE, XXXX Marital Status: Phone: [phone] MRN: Visit Id: Visit Reason: Neck pain; Paresthesia; NECK PAIN, DZZINESS, TINGLING AND NUMBESS ON RIGHT SIDE Speciality: Acuity: 2 Enc Type: Observation Med Service: Medical Arrival: 11/01/2022 13:30:41 Discharge: LOS: 000 02:54 Checkin: 11/01/2022 13:30:41 Checkout: 11/01/2022 16:24:06 Dispo Type: Admitted as IP to this [facility] EVENTS: Event Name Event Status Request Date/Time Start Date/Time Complete Date/Time Arrive Complete 11/01/2022 13:30:41 11/01/2022 13:30:41 11/01/2022 13:30:41 Document Home Meds Request 11/01/2022 13:30:41 Triage Complete 11/01/2022 13:30:41 11/01/2022 13:44:01 11/01/2022 13:44:01 Bed Assign Complete 11/01/2022 13:34:37 11/01/2022 13:34:37 11/01/2022 13:34:37 Dr Exam Complete 11/01/2022 13:34:37 11/01/2022 13:37:21 11/01/2022 13:37:21 RN Exam Complete 11/01/2022 13:34:37 11/01/2022 13:50:49 11/01/2022 13:50:49 Registration Complete 11/01/2022 13:36:16 11/01/2022 13:36:16 11/01/2022 13:36:16 Reg Complete Request 11/01/2022 13:36:16 Reg Bed Request Complete 11/01/2022 13:36:16 11/01/2022 13:36:16 11/01/2022 13:36:16 Registration Complete 11/01/2022 13:37:21 11/01/2022 16:05:39 11/01/2022 16:05:39 Dr Exam Complete 11/01/2022 13:38:31 11/01/2022 13:38:31 11/01/2022 13:38:31 EKG Complete 11/01/2022 13:46:11 11/01/2022 14:36:19 NPO Request 11/01/2022 13:46:11 Pending Labs Request 11/01/2022 13:46:11 Lab Request 11/01/2022 13:46:11 Urine Collect Request 11/01/2022 13:46:11 Patient Care Request 11/01/2022 13:46:11 RT Request 11/01/2022 13:46:11 CT Complete 11/01/2022 13:46:11 11/01/2022 13:52:59 11/01/2022 14:05:58 Pending Labs Request 11/01/2022 13:46:29 Lab Request 11/01/2022 13:46:29 Urine Collect Request 11/01/2022 13:46:29 Patient Care Request 11/01/2022 13:47:38 Pending Labs Complete 11/01/2022 13:50:18 11/01/2022 13:50:18 11/01/2022 14:05:30 Lab Complete 11/01/2022 13:50:18 11/01/2022 13:50:18 11/01/2022 14:05:30 Pending Labs Complete 11/01/2022 13:51:46 11/01/2022 13:51:46 11/01/2022 13:51:47 Pending Labs Complete 11/01/2022 13:53:35 11/01/2022 13:53:35 11/01/2022 13:53:43 Lab Complete 11/01/2022 13:53:35 11/01/2022 13:53:35 11/01/2022 13:53:43 Pending Labs Complete 11/01/2022 13:57:48 11/01/2022 13:57:48 11/01/2022 13:57:48 Meds Admin Request 11/01/2022 15:03:01 Meds Admin Complete 11/01/2022 15:28:53 11/01/2022 15:48:04 Consult Request 11/01/2022 15:51:52 Hospitalist Consult Request 11/01/2022 15:51:52 Consult Request 11/01/2022 15:52:20 Bed Request Request 11/01/2022 15:52:41 Reg Bed Request Complete 11/01/2022 15:52:41 11/01/2022 16:05:39 11/01/2022 16:05:39 Admit Request 11/01/2022 15:52:41 Patient Care Request 11/01/2022 16:05:40 Patient Care Request 11/01/2022 16:05:40 Patient Care Request 11/01/2022 16:05:41 Patient Care Request 11/01/2022 16:05:41 Patient Care Request 11/01/2022 16:19:56 Consult Request 11/01/2022 16:19:56 Pending Labs Request 11/01/2022 16:19:56 Lab Request 11/01/2022 16:19:56 Meds Admin Request 11/01/2022 16:19:56 Echo Request 11/01/2022 16:19:56 MRI Request 11/01/2022 16:19:56 RT Request 11/01/2022 16:19:56 RT Tx/ABG Request 11/01/2022 16:19:56 MRI Request 11/01/2022 16:20:19 Meds Admin Request 11/01/2022 16:20:50 ADDRESS: [address] [place] [id number] PHYS DOC NOTES: MEDICAL INFORMATION: Prescriptions Given: Medications to Continue with No Changes Other Medications fluoxetine (Prozac) 20 Milligram By Mouth every day. PATIENT EDUCATION INFORMATION: Instructions: Follow up: DIAGNOSIS: 1:Paresthesia of right upper extremity; 2:Bipolar disorder Normal [facility] ED Note-Physicianon 11-02-19 ED Note-Physician Basic Information Time Seen: Karie Newman PA-C 11/01/2022 13:37 Chief Complaint Pt was at chiropractor around 0930 for neck pain and he adjusted neck when she immediately felt weird and having R sided numbness/weakness. History of Present Illness Patient is a 26-year-old lactating female with history of PTSD, bipolar and orthostatic hypotension who presents to the ED with her children for evaluation of paresthesias. Patient states she was at the chiropractor's office at 0930 this morning and had her neck adjusted. She said she immediately felt lightheaded, woozy and off . She says she started to feel that the right side of her face and upper body was numb. She endorses headache that starts in the right side of her neck and moves up and across the top of her head into and behind her right eye and right yarsani. Rates pain 9/10. Describes it as dull and burning. She went home in try to sleep off but symptoms not improved. She went back to the chiropractor at 1030 this morning and he told her to ice her neck and if symptoms do not improve go to the ED. Patient says that she has seen this chiropractor 9 times before today and never had a problem. She endorses headache, paresthesias and decreased sensation in her right upper extremity. She denies speech changes, vision changes, double vision, loss of peripheral vision, chest pain, shortness of breath, fever, chills, tenderness. She had right ear does feel simmons than the left ear. She is not on anticoagulants. Has not taken any medication for her symptoms. Review of Systems A 10 point review of systems is negative except as noted above. Medical and Surgical History: Reviewed and noted Social history: Lives at home Substance use: Denies Physical Exam Vitals & Measurements T: 36.6 ?C(Tympanic) HR: 73(Peripheral) RR: 16 BP: 118/78 SpO2: 100% HT: 172 cm WT: 73 kg BMI: 24.68 Appearance: Well-developed, nontoxic-appearing, alert and awake. Speaking in complete sentences. Calm. Cooperative. Vital signs reviewed, WNL Skin: Warm, dry, intact. Normal for age and ethnicity. No ecchymosis, open wounds, or rashes. Head: Normocephalic, atraumatic NECK: ROM in cytocide plane limited. Tenderness with palpation mid cervical and right posterior along SCM border Eyes: PERRL. Vision grossly intact. EOMI. No pain or dizziness with eye movement. No nystagmus. ENT: Buccal mucosa pink and moist. Uvula is midline. Normal facial symmetry. Hearing grossly normal Respiratory: LCTA b/l with normal bilateral excursion. No wheezes, rhonchi, rales. Cardiovascular: RRR, no murmurs. 2+ symmetrical radial and dorsalis pedis pulses. Normal cap refill. No LE edema. Neuro: NIH stroke score 1-decreased sensation right side. Still with 5/5 chinese medicine practitioner strength, normal reflexes. Alert and awake, speech Clear, cranial nerves grossly intact. Normal gait. Extremities: 5/5 strength bilateral upper extremities. No deformity noted on exam. Patient spontaneously moves all 4 extremities. Medical Decision Making Limitations to history: None Nursing Notes: Reviewed and utilized the nursing notes. Previous records reviewed: MDM: Patient is a 26-year-old female presents the ED for evaluation of paresthesias. NIH stroke scale is 1 for decreased sensation right side. Still has good strength. Normal reflexes. Suspect less likely CVA more likely vertebral artery dissection. Stroke code initiated. Patient blood glucose 109 on arrival. Patient to undergo Noncon CT, blood work and will obtain CTA head and neck. I personally reviewed labs. No anemia, electrolyte abnormalities, other significant abnormalities that would be etiology of symptoms. CTA head and neck negative for vertebral or subclavian artery dissection. Reassessment, patient reports paresthesias still present. I spoke with neurologist, Dr. Louise, who recommended patient get admitted for MRI imaging. He recommended I give her 325 mg of aspirin. Following negative CT imaging I had ordered patient Toradol however was able to advise nurse not to administer it before patient received her dose. She did receive 1 g p.o. Tylenol. I also have 1 L normal saline running. Will speak with hospitalist about admitting patient Social Determinants of Health Affecting Care: Limited financial resources, few sick days at work, 4 young children that require river driver while admitted RX Considerations: Discussions with other providers: Neurologist Dr. Louise, hospitalist Dr. Rodas, attending Dr. Izquierdo Appropriate for: Admission to hospital Assessment/Plan 1. Paresthesia of right upper extremity (R20.2: Paresthesia of skin) 2. Traumatic injury of neck (S19.9XXA: Unspecified injury of neck, initial encounter) Orders: acetaminophen, 975 mg = 3 tab(s), Tab, Oral, Once, Stop date 11/01/22 15:01:00 EDT, STAT, Start date 11/01/22 15:01:00 EDT, 11/01/22 15:01:00 EDT aspirin, 325 mg = 1 tab(s), Tab-EC, Oral, Once, Stop date 11/01/22 15:28:00 EDT, STAT, Start date 11/01/22 15:28:00 EDT, 11/01/22 15:28 (more content not included)... Normal [facility] Comment on above: Result Comment: Elec tronically Signed By: Karie Newman PA-C\.br\Date and Time Signed: 11/01/22 15:29 EDT\.br\Electronically Co-Signed By: Nicolas Izquierdo DO\.br\Date and Time Co-Signed: 11/01/22 18:34 EDT ED Patient Education Noteon 11-01-2022 ED Patient Education Note Normal [facility] ED Patient Summaryon 023 ED Patient Summary [place] [id number] Patient Discharge Instructions Person Information Name: KASSIE DIALLO Age: 26 Years Arrival Date: 11/01/2022 13:30:41 Discharge Diagnosis: 1:Paresthesia of right upper extremity; 2:Bipolar disorder Primary Care Physician: NONE, XXXX Provider Information Primary Provider: Nicolas Izquierdo DO Advanced Professor Of Psychiatry:Karie Newman PA-C The exam and treatment you received in the Emergency Department were for an urgent problem and are not intended as complete care. It is important that you follow up with a doctor, nurse practitioner, or physician?s promotions assistant sales marketing for ongoing care. If your symptoms become worse or you do not improve as expected and you are unable to reach your usual health care provider, you should return to the Emergency Department. We are available 24 hours a day. KASSIE DIALLO has been given the following list of patient education materials, prescriptions and follow-up instructions: Follow-up Instructions: In the event that this physician does not participate in your insurance network, please consult with your insurance company to find a nearby participating provider. Patient Education Materials: A MESSAGE TO ALL PATIENTS REGARDING OPIOIDS PRESCRIPTION OPIOIDS: WHAT YOU NEED TO KNOW Prescription opioids can be used to help relieve fzqkdgpr-nh-iyuxjc pain and are often prescribed following a surgery or injury, or for certain health conditions. These medications can be an important part of the treatment but also come with serious risks. It is important to work with your healthcare provider to make sure you are getting the safest, most effective care. WHAT ARE THE RISKS AND SIDE EFFECTS OF OPIOID USE? Prescription opioids carry serious risks of addiction and overdose, especially with prolonged use. An opioid overdose, often marked by slowed breathing, can cause sudden . The use of prescription opioids can have a number of side effects as well, even when taken as directed: ? Tolerance?meaning you might need to take more of the medication for the same pain relief ? Physical dependence?meaning you have symptoms of withdrawal when a medication is stopped ? Increased sensitivity to pain ? Constipation ? Nausea, vomiting, and dry mouth ? Sleepiness and dizziness ? Confusion ? Depression ? Low levels of testosterone that can result in lower sex drive, energy, and strength ? Itching and sweating RISKS ARE GREATER WITH: ? History of drug misuse, substance use disorder, or overdose ? Mental health conditions (such as depression or anxiety) ? Sleep apnea ? Older age (65 years and older) ? Avoid alcohol while taking prescription opioids. Also, unless specifically advised by your health care provider, medications to avoid include: ? Benzodiazepines (such as Xanax or Valium) ? Muscle relaxants (such as Soma or Flexeril) ? Hypnotics (such as Ambien or Lunesta) ? Other prescription opioids KNOW YOUR OPTIONS Talk to your health care provider about ways to manage your pain that don?t involve prescription opioids. Some of these options may actually work better and have fewer risks and side effects. Options may include: ? Pain relievers such as acetaminophen, ibuprofen, and naproxen ? Some medication that are also used for depression or seizures ? Physical therapy and exercise ? Cognitive behavioral therapy, a psychological, goal-directed approach, in which patients learn how to modify physical, behavioral, and emotional triggers of pain and stress. IF YOU ARE PRESCRIBED OPIOIDS FOR PAIN: ? Never take opioids in greater amounts or more often than prescribed. ? Follow up with your primary health care provider. o Work together to create a plan on how to manage your pain. o Talk about ways to help manage your pain that don?t involve prescription opioids. o Talk about any and all concerns and side effects. ? Help prevent misuse and abuse o Never sell or share prescription opioids. o Never use another person?s prescription opioids. ? Store prescription opioids in a secure place and out of reach of others (this may include visitors, children, friends, and family). ? Safely dispose of unused prescription opioids: Find your community drug take-back program or your pharmacy mail-back program, or flush them down the toilet, following guidance from the Food and Drug Administration (www.fda.gov/Drugs/Re sourcesForYou). ? Visit www.cdc.gov/drugoverd ose to learn about the risks of opioids abuse and overdose. ? If you believe you may be struggling with addiction, tell your health career and guidance counselor and ask for guidance or call [facility]?S National Helpline at 1-723-622-OJSR. x Source: US Department of Health and Human Services/Center for Disease Control & Prevention [facility] (more content not included)... Normal [facility] HEMATOLOGYOrdered By: SYSTEM SYSTEM on 11-01-2022 Basophils/100 WBC (Bld) 1.3 % Normal 0.0 - 2.0 % [facility] HemeAutoSS Basophils/Leukocytes Auto (Bld) [Pure # fraction] 0.1 E9/L Normal 0.0 - 0.2 E9/L [facility] HemeAutoSS Eosinophils/100 WBC (Bld) 2.7 % Normal 0.0 - 8.0 % [facility] HemeAutoSS Eosinophils/Leukocytes Auto (Bld) [Pure # fraction] 0.2 E9/L Normal 0.0 - 0.5 E9/L [facility] HemeAutoSS Lymphocytes/100 WBC (Bld) 30.1 % Normal 14.0 - 50.0 % [facility] HemeAutoSS Lymphocytes/Leukocytes Auto (Bld) [Pure # fraction] 2.3 E9/L Normal 1.0 - 4.0 E9/L [facility] HemeAutoSS Monocytes/100 WBC (Bld) 7.1 % Normal 4.0 - 14.0 % [facility] HemeAutoSS Monocytes/Leukocytes Auto (Bld) [Pure # fraction] 0.5 E9/L Normal 0.2 - 1.0 E9/L [facility] HemeAutoSS Neutrophils/100 WBC (Bld) 58.8 % Normal 36.0 - 75.0 % [facility] HemeAutoSS Neutrophils/Leukocytes Auto (Bld) [Pure # fraction] 4.5 E9/L [...] gm/dL [facility] HemeAutoSS MCV (RBC) [Entitic vol] 86.7 fL Normal 80.0 - 100.0 fL [facility] HemeAutoSS Platelet mean volume (Bld) [Entitic vol] 8.3 fL Normal 6.4 - 10.8 fL [facility]eAutoSS Platelets (Bld) [#/Vol] 236.0 E9/L Normal 150.0 - 500.0 E9/L [facility] RBC (Bld) [#/Vol] 4.7 E12/L Normal 4.3 - 5.9 E12/L [facility] WBC corrected for nucl RBC Auto (Bld) [#/Vol] 7.7 E9/L Normal 4.0 - 11.0 E9/L [facility] HemeAutoSS MRI Brain w/o Contraston MRI Brain w/o Contrast Exam Date/Time: 11/01/2022 17:41 EDT Reason for Exam: CVA Report IMPRESSION: NO ACUTE INTRACRANIAL PROCESS IDENTIFIED. EXAM: MRI Brain w/o Contrast DATE: 11/01/2022 4:55 PM CLINICAL HISTORY: Right-sided numbness and weakness after recent neck manipulation. COMPARISON: None available. TECHNIQUE: Multiplanar MR imaging of the head was performed without contrast. FINDINGS: Acute Change: There is no evidence of restricted diffusion to suggest an acute infarct. Hemorrhage: No evidence of prior parenchymal hemorrhage. Mass Lesion/ Mass Effect: No evidence of an intracranial mass or extra-axial fluid collection. No significant mass effect. Chronic Change: There are no significant white matter changes, for age. Parenchyma: No significant volume loss for age. The brain parenchyma is otherwise within normal limits of signal intensity and morphology. Ventricles: Normal caliber and morphology. Skull Base: Hypothalamic and pituitary region are grossly normal. Craniocervical junction is normal. No significant marrow replacement process. Vasculature: Major intracranial arterial structures, and dural venous sinuses show typical flow void, suggesting patency. Other: Paranasal sinuses and mastoid air cells are clear. The orbits are unremarkable. The extracranial soft tissues are unremarkable. Report Ordering Provider: Juan RODAS FINAL REPORT Dictated: 11/01/2022 6:16 pm Ganesh Ray MD Signed (Electronic Signature): 11/01/2022 6:16 pm Signed by: Ganesh Ray MD Transcribed by: ABIGAIL Technologist: LUZ Technical Comments None Normal [facility] MRI Spine Cervical w/o Contr jack 11-01-2022 MRI Spine Cervical w/o Contrast Exam Date/Time: 11/01/2022 17:41 EDT Reason for Exam: Radiculopathy Report IMPRESSION: NEGATIVE CERVICAL SPINE MRI. CLINICAL HISTORY: Radiculopathy. COMPARISON: Head and neck CTAs from earlier 11/01/2022. TECHNIQUE: Multiplanar MR imaging of the cervical spine was performed. FINDINGS: The spine is visualized from the craniovertebral junction through the T2-3 level. Alignment: Normal cervical lordosis. No significant subluxation. Bone marrow signal/fracture: Unremarkable. Spinal cord: The visualized spinal cord is normal in signal and caliber. Paraspinal soft tissues: Paraspinal soft tissues are unremarkable. Normal flow-voids are noted within both vertebral arteries in the neck. Craniovertebral junction: [Visualized posterior fossa structures and craniovertebral junction are unremarkable.] C2-3: Unremarkable. C3-4: Unremarkable. C4-5: Unremarkable. C5-6: Unremarkable. C6-7: Unremarkable. C7-T1: Unremarkable. Upper thoracic levels: Unremarkable. Report Ordering Provider: Juan RODAS FINAL REPORT Dictated: 11/01/2022 6:29 pm Ganesh Ray MD Signed (Electronic Signature): 11/01/2022 6:29 pm Signed by: Ganesh Ray MD Transcribed by: ABIGAIL Technologist: LUZ Technical Comments None Normal [facility] PT & PTTon 11-01-2022 aPTT Coag (PPP) [Time] 34.8 second(s) Normal 25.1-36.5 [facility] Comment on above: Result Comment: Para meter 15 days - 4 weeks 1 - 5 months 6 - 11 months 1 - 5 years 6 - 10 years 11 - 17 years PTT Mean: 35.4 (27.6-45.6) Mean: 33.5 (24.8-40.7) Mean: 32.4 (25.1-40.7) Mean: 31.6 (24.0-39.2) Mean: 31.6 (26.9-38.7) Mean: 31.0 (24.6-38.4) Pediatric Reference ranges were obtained from a study by reese Salinas. prepared from 1437 samples obtained at 7 different centers using the same coagulation reagent and instrumentation as [facility]. Currently there are no coagulation studies available worldwide for children to 14 days, and no normal ranges. Heparin therapeutic range (represented by Anti-Factor Xa activity of 0.2 - 0.4 U/mL) corresponds to PTT of 56.6 - 109.0 sec. Performed By: #### 2 [id number], [id number], [id number], 1964280, 1071540, 2699377, [id number] #### [facility] [address] [place] [address] INR Coag (PPP) [Relative time] 1.1 {INR} Invalid Interpretation Code [facility] Comment on above: Result Comment: INR results are specifically intended to assess patients stabilized on long-term Anticoagulation therapy suggested INR?s ?Less Intensive Anticoagulation? 2.0 ? 3.0 Conventional Range 3.0 ? 4.5 Performed By: #### 2 [id number], [id number], 4498874, 2418473, 8924704, 7591212, [id number] #### [facility] [address] [place] [address] PT Coag (PPP) [Time] 12.3 second(s) Normal 9.4-12.5 [facility] Comment on above: Result Comment: 15 d [...] ranges were obtained from a study by jo Salinas prepared from 1437 samples obtained at 7 different centers using the same coagulation reagent and instrumentation as [facility]. Currently there are no coagulation studies available worldwide for children to 14 days, and no normal ranges. Performed By: #### 2 682968, [id number], 2638636, 3225036, 1140214, 6706812, [id number] #### [facility] [address] [place] [address] RAD - MRI Screening Formon 0 11-01-2022 RAD - MRI Screening Form [id number] .[id number]:127 Normal [facility] SEROLOGYOrdered By: Brian kelly on 11-01-2022 HCG.beta subunit (U) [Moles/Vol] Negative Normal [facility] Man Sero Troponin 0 Hr.on 11-01-2022 Troponin I.cardiac [Mass/Vol] 2.50 pg/mL Low 10.10-27.10 [facility] Comment on above: Result Comment: The 95% CI (Confidence Interval) PPV (Positive Predictive Value) for myocardial infarction in females is 38 pg/mL, in males 51 pg/mL. The results should be used in conjunction with clinical conditions of myocardial infarction. (Access High Sensitivity Troponin I Instructions For Use, Naty Nino, October 2017) Performed By: #### 2 [id number], [id number], 1851283, 7839872, 3714146, 7610147, [id number] #### [facility] [address] [place] [address] U BetaHcg Qualon 11-01-2022 HCG.beta subunit (U) [Moles/Vol] Negative Normal [facility] Comment on above: Performed By: #### 2 [id number] #### [facility] [address] [place] [address] UA With Cult Reflexon 2022 Bacteria LM Ql (Urine sed) TRACE Normal Trace [facility] Comment on above: Performed By: #### 1 [id number] ####[facility] [address] [place] [address] Bilirubin Ql (U) Negative Normal Negative [facility] Comment on above: Performed By: #### 1 [id number] ####[facility] [address] [place] [address] Clarity (U) CLEAR Normal Clear [facility] Comment on above: Performed By: #### 1 [id number] ####[address] [address] Color (U) YELLOW Normal Yellow [facility] Comment on above: Performed By: #### 1 [id number] ####[address] [address] Epithelial cells.squamous LM.HPF (Urine sed) [#/Area] 0-2 Normal 0-2 [facility] Comment on above: Performed By: #### 1 [id number] ####[address] [address] Glucose Test strip (U) [Mass/Vol] Negative Normal Negative [facility] Comment on above: Performed By: #### 1 5442565 ####[address] [address] Hemoglobin Ql (U) TRACE Abnormal Negative [facility] Comment on above: Performed By: #### 1 [id number] ####[address] [address] Ketones (U) [Mass/Vol] Negative Normal Negative Fi [facility] Comment on above: Performed By: #### 1 [id number] ####[address] [address] [place].plasma/[place] .RBC (Bld) [Mass ratio] 0-3 Normal 0-3 [facility] Comment on above: Performed By: #### 1 [id number] ####[address] [address] Nitrite Ql (U) Negative Normal Negative [facility] Comment on above: Performed By: #### 1 5535155 ####[address] [address] pH (U) 6.0 [pH] Invalid Interpretation Code 5.0-9.0 [facility] Comment on above: Performed By: #### 1 [id number] ####[facility] [address] [place] [address] Protein (U) [Mass/Vol] Negative Normal Negative [facility] Comment on above: Performed By: #### 1 [id number] ####[facility] [address] [place] [address] Specific gravity (U) [Rel density] 1.010 Invalid Interpretation Code 1.005-1.030 [facility] Comment on above: Performed By: #### 1 [id number] ####[facility] [address] [place] [address] Type of Urine collection method Random Urine Normal [facility] Comment on above: Performed By: #### 1 [id number] ####[address] [address] Urobilinogen Qn (U) 0.2 {Ladonna'U}/dL Normal 0.0-1.0 [facility] Comment on above: Performed By: #### 1 [id number] ####[facility] [address] [place] [address] WBC Auto Ql (U) Negative Normal Negative [facility] Comment on above: Performed By: #### 1 [id number] ####[facility] [address] [place] [address] WBC LM.HPF (Urine sed) [#/Area] 0-5 Normal 0-5 [facility] Comment on above: Performed By: #### 1 [id number] ####[facility] [address] [place] [address] URINALYSISOrdered By: Brian Dejesus on 11-01-2022 Bacteria LM Ql (Urine sed) Trace /HPF Normal Trace/HPF [facility]A Auto SS Bilirubin Ql (U) Negative (11/01/22 6:27 PM) Normal Negative [facility]A Auto SS Clarity (U) Clear (11/01/22 6:27 PM) Normal Clear [facility]A Auto SS Color (U) Yellow (11/01/22 [...] PM) Normal Negative [facility] UA Auto SS [place].plasma/[place] .RBC (Bld) [Mass ratio] 0-3 /HPF Normal 0-3/HPF [...] [facility] UA Auto SS Urobilinogen Qn (U) 0.7138871 {Ladonna'U}/dL Normal 0.0 - 1.0 EU/dL [facility] UA Auto SS WBC Auto Ql (U) Negative (11/01/22 6:27 PM) Normal Negative [facility] UA Auto SS WBC LM.HPF (Urine sed) [#/Area] 0-5 /HPF Normal 0-5/HPF [facility] UA Auto SS eGFRon 11-01-2022 GFR/1.73 sq M.predicted among non-blacks MDRD (S/P/Bld) [Vol rate/Area] 104 mL/min/1.73 m2 Normal >=59 [facility] Comment on above: Order Comment: Order added by Discern Expert. Result Comment: Corporate Law Assistant lina kidney disease could be indicated at eGFR's of less than 60 mL/min/1.73m2. Kidney failure is indicated at less than 15 mL/min/1.73m2. Performed By: #### 2 [id number], [id number], 6968711, 2117558, 5054252, 1877940, 30974138 #### [facility] [address] [place] [address] Head or Brain w/o Contras ton 09-29-2022 CT Head or Brain w/o Contrast Exam Date/Time: 09/29/2022 00:48 EDT Reason for Exam: Headache, chronic, new features or increased frequency;Other (please specify) Report IMPRESSION: NEGATIVE CT SCAN OF THE BRAIN. CLINICAL HISTORY: Headache, chronic, new features or increased frequency. COMPARISON: 08/09/2018. COMMENT: Unenhanced images were obtained. The ventricles and basal cisterns and cortical sulci appear within normal limits. There is no mass effect nor midline shift. No abnormal attenuation within the brain is noted. There is no evidence of recent intracranial hemorrhage nor extra-axial hematoma. No mass lesion is evident. No skull fracture is noted. Paranasal sinus disease noted on the prior exam is no longer evident. All CT scans at this facility use dose modulation, iterative reconstruction, and/or weight based dosing when appropriate to reduce radiation dose to as low as reasonably achievable. Ordering Provider: Winnie Paula FINAL REPORT Dictated: 09/29/2022 9:04 am Sohan Funk M.D. Signed (Electronic Signature): 09/29/2022 9:04 am Signed by: Sohan Funk M.D. Transcribed by: ABIGAIL Technologist: MANSOOR Technical Comments Contrast: None Normal [facility] Consent for Treatmenton 09-05 Consent for Treatment [id number] .[id number]:127 Normal [facility] Discharge Instructionson Discharge Instructions [id number]. 00CD:127 Normal [facility] ED Clinical Summaryon 2022 ED Clinical Summary [address] [address] ED Clinical Summary Person Information Name: KASSIE DIALLO Keli/[facility] Age: 26 Years : 1995 Sex: Female Language: [place] PCP: KATELYN ROBERTS CNP Marital Status: Phone: [phone] Visit Id: Visit Reason: Headache; headache Speciality: Acuity: 4 Enc Type: Emergency Med Service: Emergency Arrival: 09/28/2022 23:40:43 Discharge: 09/29/2022 01:19:18 LOS: 000 01:39 Checkin: 09/28/2022 23:40:43 Checkout: 09/29/2022 01:19:18 Dispo Type: Home (Routine DC) EVENTS: Event Name Event Status Request Date/Time Start Date/Time Complete Date/Time Arrive Complete 09/28/2022 23:40:43 09/28/2022 23:40:43 09/28/2022 23:40:43 Document Home Meds Request 09/28/2022 23:40:43 Triage Complete 09/28/2022 23:40:43 09/28/2022 23:56:08 09/28/2022 23:56:08 Dr Exam Complete 09/28/2022 23:43:39 09/28/2022 23:43:39 09/28/2022 23:43:39 Registration Complete 09/28/2022 23:43:39 09/28/2022 23:44:56 09/28/2022 23:44:56 Reg Complete Request 09/28/2022 23:44:56 Reg Bed Request Complete 09/28/2022 23:44:56 09/28/2022 23:44:56 09/28/2022 23:44:56 Bed Assign Complete 09/28/2022 23:56:16 09/28/2022 23:56:16 09/28/2022 23:56:16 RN Exam Complete 09/28/2022 23:56:16 09/29/2022 00:17:58 09/29/2022 00:17:58 CT Complete 09/29/2022 00:10:34 09/29/2022 00:46:04 09/29/2022 00:48:26 Meds Admin Complete 09/29/2022 00:10:34 09/29/2022 00:14:51 Discharge Complete 09/29/2022 01:09:05 09/29/2022 01:19:29 09/29/2022 01:19:29 Transfer Complete 09/29/2022 01:19:29 09/29/2022 01:19:29 09/29/2022 01:19:29 ADDRESS: [address] [place] [id number] PHYS DOC NOTES: MEDICAL INFORMATION: Prescriptions Given: Medications to Continue with No Changes Other Medications fluoxetine (Prozac) 20 Milligram By Mouth every day. PATIENT EDUCATION INFORMATION: Instructions: General Headache Without Cause, Cguu-pi-Qrqx Follow up: With: Address: When: Wilbert Viveros [address], [place] [address] Business (1) In 3 days 10/02/2022 With: Address: When: KATELYN ALEJANDRA [address] [place], [place] [id number] Business (1) In 3 days 10/02/2022 Comments: Take ibuprofen, Tylenol every 6 hours as needed for pain. Please follow-up with your primary care doctor in the next 2 to 3 days. Please return to the ED for any new or worsening symptoms. DIAGNOSIS: Acute headache Normal [facility] ED Note-Physicianon 09-30-19 ED Note-Physician Basic Information Time Seen: Winnie Paula DO 09/28/2022 23:43 Chief Complaint pt arrives for c/o headache x 1 week after hitting herself with the car door. pt denies n/v/ or confussion History of Present Illness Is a 26-year-old female with past medical history of bipolar disorder, migraines presenting to the ED for evaluation of a headache. Patient states she has had increasing frequency of headaches over the last several months, approximately 1 week ago she was hit herself in the head with a car door since that time she has had headaches particularly in the morning with associated nausea. Patient does note sensitivity to light and sound. Denies any fevers, chills, dizziness or lightheadedness. Review of Systems A 10 point review of systems is negative except as noted above. Medical and Surgical History: Reviewed and noted Social history: Lives at home Tobacco: Denies Physical Exam Vitals & Measurements T: 36.4 ?C(Oral) HR: 75(Peripheral) RR: 15 BP: 100/69 SpO2: 99% HT: 172 cm WT: 73 kg BMI: 24.68 General: Well developed, non toxic appearing, no acute distress HEENT: Head atraumatic, Mucosa moist, hearing grossly normal Neck: No JVD, tracheal deviation Cardiac: Regular rate, rhythm, no murmurs, or gallops, 2+ radial pulses Respiratory: Lungs clear to auscultation B/L, normal respiratory effort Abdomen: Soft non tender, no rebound or guarding, no peritoneal signs Extremities: No edema noted in the LE B/L, no tenderness to palpation Neurologic: Alert and oriented, speech clear cranial nerves III through XII intact, no focal neurologic deficits. Skin: No rashes or lesions Psych: Appropriate mood and behavior Medical Decision Making MEDICAL DECISION MAKING Number and Complexity of Problems Differential Diagnosis: [] [facility] Data External documents reviewed: [] My EKG interpretation: [] My CT interpretation: [] My X-ray interpretation: [] My Ultrasound interpretation: [] Decision rules/scores evaluated: [] Discussed with: [] Treatment and Disposition ED Course: Patient is a 26-year-old female presenting to the ED for evaluation of headache. Patient is nontoxic and on arrival, no acute distress. In fact that she has had increasing frequency of her headaches will obtain CT imaging to ensure there is no underlying pathology. Patient is given Toradol in the ED for pain. On reevaluation patient does report improvement of her symptoms. CT of her head is negative. Patient is discharged home given referral to neurology. She is to return to the ED for any new or worsening symptoms. Shared decision making: [] Code status: [] Assessment/Plan Acute headache (R51.9: Headache, unspecified) Orders: ketorolac, 30 mg = 1 mL, Injection, IntraMuscular, Once, Stop date 09/29/22 0:10:00 EDT, STAT, Start date 09/29/22 0:10:00 EDT, 09/29/22 0:10:[address] Head or Brain w/o Contrast Medications Administered Given ketorolac 30 mg/mL Inj 1 mL, 30 mg, IntraMuscular Disposition Plan Discharge Prescription List Prescriptions No active prescription medications Follow-up With When Contact Information Wilbert Viveros In 3 days 10/02/[address], [place] [address]- Business (1) Additional Instructions: KATELYN ROBERTS In 3 days 10/02/2022 [address]T [address] [place] [address] Business (1) Additional Instructions: Take ibuprofen, Tylenol every 6 hours as needed for pain. Please follow-up with your primary care doctor in the next 2 to 3 days. Please return to the ED for any new or worsening symptoms. Patient Education General Headache Without Cause, Wuat-pf-Kxgq Problem List/Past Medical History Ongoing Amenorrhea, secondary Bacterial conjunctivitis of right eye Bipolar 1 disorder, mixed, moderate Cellulitis, leg Chronic abdominal pain Depression Migraines Pelvic pain Peroneal neuritis PTSD (post-traumatic stress disorder) Right hand pain Screening for cardiovascular condition Screening for thyroid disorder Smoker Vulvovaginitis Historical Depression Laceration of kidney without open wound into abdominal cavity orthostatic fainting Pseudoseizures Suicidal ideation Procedure/Surgical History Betamethasone (02/01/2017), Betamethasone (01/31/2017), lacerated Kidney (2007), Right Hand Surgery. Medications Inpatient No active inpatient medications Home Prozac, 20 mg, Oral, Daily Allergies clindamycin (Hives) Social History Alcohol - Denies Alcohol Use, 04/26/2019 Current, Beer, Wine, 1-2 times per month, Household alcohol concerns: No., 04/15/2020 Employment/School - Not employed or in school, 01/31/2017 Employed, Work/School description: at home. 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 Highest education level: High school., 06/15/2013 Exercise - Occasional exercise, 06/15/2013 Home/Environment - No Risk, 02/07/2017 Lives with Children, (more content not included)... Normal [facility] Comment on above: Result Comment: Elec tronically Signed By: Dokken DO, Kaylinn A\.br\Date and Time Signed: 09/29/22 01:41 EDT ED Patient Education Noteon 09-29-2022 ED Patient Education Note Neurology General Headache Without Cause A headache is pain or discomfort you feel around the head or neck area. There are many causes and types of headaches. In some cases, the cause may not be found. Follow these instructions at home: Watch your condition for any changes. Let your doctor know about them. Take these steps to help with your condition: Managing pain ? Take bfgy-ies-ldjpvjr and prescription medicines only as told by your doctor. This includes medicines for pain that are taken by mouth or put on the skin. ? Lie down in a dark, quiet room when you have a headache. ? If told, put ice on your head and neck area: ? Put ice in a plastic bag. ? Place a towel between your skin and the bag. ? Leave the ice on for 20 minutes, 2?3 times per day. ? Take off the ice if your skin turns bright red. This is very important. If you cannot feel pain, heat, or cold, you have a greater risk of damage to the area. ? If told, put heat on the affected area. Use the heat source that your doctor recommends, such as a moist heat pack or a heating pad. ? Place a towel between your skin and the heat source. ? Leave the heat on for 20?30 minutes. ? Take off the heat if your skin turns bright red. This is very important. If you cannot feel pain, heat, or cold, you have a greater risk of getting burned. ? Keep lights dim if bright lights bother you or make your headaches worse. Eating and drinking ? Eat meals on a regular schedule. ? If you drink alcohol: ? Limit how much you have to: ? 0?1 drink a day for women who are not . ? 0?2 drinks a day for men. ? Know how much alcohol is in a drink. In the [place] one drink equals one 12 oz bottle of beer (355 mL), one 5 oz glass of wine (148 mL), or one 1? oz glass of hard liquor (44 mL). ? Stop drinking caffeine, or drink less caffeine. General instructions ? Keep a journal to find out if certain things bring on headaches. For example, write down: ? What you eat and drink. ? How much sleep you get. ? Any change to your diet or medicines. ? Get a massage or try other ways to relax. ? Limit stress. ? Sit up straight. Do not tighten (tense) your muscles. ? Do not smoke or use any products that contain nicotine or tobacco. If you need help quitting, ask your doctor. ? Exercise regularly as told by your doctor. ? Get enough sleep. This often means 7?9 hours of sleep each night. ? Keep all follow-up visits. This is important. Contact a doctor if: ? Medicine does not help your symptoms. ? You have a headache that feels different than the other headaches. ? You feel like you may vomit (nauseous) or you vomit. ? You have a fever. Get help right away if: ? Your headache: ? Gets very bad quickly. ? Gets worse after a lot of physical activity. ? You have any of these symptoms: ? You continue to vomit. ? A stiff neck. ? Trouble seeing. ? Your eye or ear hurts. ? Trouble speaking. ? Weak muscles or you lose muscle control. ? You lose your balance or have trouble walking. ? You feel like you will pass out (faint) or you pass out. ? You are mixed up (confused). ? You have a seizure. These symptoms may be an emergency. Get help right away. Call your local emergency services (911 in the [place] ? Do not wait to see if the symptoms will go away. ? Do not drive yourself to the hospital. Summary ? A headache is pain or discomfort that is felt around the head or neck area. ? There are many causes and types of headaches. In some cases, the cause may not be found. ? Keep a journal to help find out what causes your headaches. Watch your condition for any changes. Let your doctor know about them. ? Contact a doctor if you have a headache that is different from usual, or if medicine does not help your headache. ? Get help right away if your headache gets very bad, you throw up, you have trouble seeing, you lose your balance, or you have a seizure. This information is not intended to replace advice given to you by your health care provider. Make sure you discuss any questions you have with your health care provider. Document Revised: 07/22/2021 Document Reviewed: 07/22/2021 Elsevier Patient Education ? 2022 [employer] Normal [facility] ED Patient Summaryon 023 ED Patient Summary [address] [address] Patient Discharge Instructions Person Information Name: KASSIE DIALLO Age: 26 Years Arrival Date: 09/28/2022 23:40:43 Discharge Diagnosis: Acute headache Primary Care Physician: KATELYN ROBERTS CNP Provider Information Primary Provider: Winnie Paula DO Advanced Professor Of Psychiatry:None The exam and treatment you received in the Emergency Department were for an urgent problem and are not intended as complete care. It is important that you follow up with a doctor, nurse practitioner, or physician?s promotions assistant sales marketing for ongoing care. If your symptoms become worse or you do not improve as expected and you are unable to reach your usual health care provider, you should return to the Emergency Department. We are available 24 hours a day. KASSIE DIALLO has been given the following list of patient education materials, prescriptions and follow-up instructions: Follow-up Instructions: With: Address: When: Wilbert Viveros [address], [place] [address] [facility] (1) In 3 days 10/02/2022 With: Address: When: KATELYN ROBERTS [address] [place] [address] [address] [place], [place] [id number] [facility] (1) In 3 days 10/02/2022 Comments: Take ibuprofen, Tylenol every 6 hours as needed for pain. Please follow-up with your primary care doctor in the next 2 to 3 days. Please return to the ED for any new or worsening symptoms. In the event that this physician does not participate in your insurance network, please consult with your insurance company to find a nearby participating provider. Patient Education Materials: General Headache Without Cause, [id number] A MESSAGE TO ALL PATIENTS REGARDING OPIOIDS PRESCRIPTION OPIOIDS: WHAT YOU NEED TO KNOW Prescription opioids can be used to help relieve ukbavcfc-tx-wpzeno pain and are often prescribed following a surgery or injury, or for certain health conditions. These medications can be an important part of the treatment but also come with serious risks. It is important to work with your healthcare provider to make sure you are getting the safest, most effective care. WHAT ARE THE RISKS AND SIDE EFFECTS OF OPIOID USE? Prescription opioids carry serious risks of addiction and overdose, especially with prolonged use. An opioid overdose, often marked by slowed breathing, can cause sudden . The use of prescription opioids can have a number of side effects as well, even when taken as directed: ? Tolerance?meaning you might need to take more of the medication for the same pain relief ? Physical dependence?meaning you have symptoms of withdrawal when a medication is stopped ? Increased sensitivity to pain ? Constipation ? Nausea, vomiting, and dry mouth ? Sleepiness and dizziness ? Confusion ? Depression ? Low levels of testosterone that can result in lower sex drive, energy, and strength ? Itching and sweating RISKS ARE GREATER WITH: ? History of drug misuse, substance use disorder, or overdose ? Mental health conditions (such as depression or anxiety) ? Sleep apnea ? Older age (65 years and older) ? Avoid alcohol while taking prescription opioids. Also, unless specifically advised by your health care provider, medications to avoid include: ? Benzodiazepines (such as Xanax or Valium) ? Muscle relaxants (such as Soma or Flexeril) ? Hypnotics (such as Ambien or Lunesta) ? Other prescription opioids KNOW YOUR OPTIONS Talk to your health care provider about ways to manage your pain that don?t involve prescription opioids. Some of these options may actually work better and have fewer risks and side effects. Options may include: ? Pain relievers such as acetaminophen, ibuprofen, and naproxen ? Some medication that are also used for depression or seizures ? Physical therapy and exercise ? Cognitive behavioral therapy, a psychological, goal-directed approach, in which patients learn how to modify physical, behavioral, and emotional triggers of pain and stress. IF YOU ARE PRESCRIBED OPIOIDS FOR PAIN: ? Never take opioids in greater amounts or more often than prescribed. ? Follow up with your primary health care provider. o Work together to create a plan on how to manage your pain. o Talk about ways to help manage your pain that don?t involve prescription opioids. o Talk about any and all concerns and side effects. ? Help prevent misuse and abuse o Never sell or share prescription opioids. o Never use another person?s prescription opioids. ? Store prescription opioids in a secure place and out of reach of others (this may include visitors, children, friends, and family). ? Safely dispose of unused prescription opioids: Find your community drug take-back program or your pharmacy mail-back program, or flush them down the toilet, following guidance from (more content not included)... Normal [facility] RAD - Preliminary Cat Scan R eporton 09-29-2022 RAD - Preliminary Cat Scan Report [id number]:[id number] Normal [facility] Family Medicine Office/Clini c Noteon 07-02-2022 Family Medicine Office/Clinic Note Chief Complaint pink eye HPI Staff Kassie is a 26 year old female who presents for poss pink eye. Mother states that her son had pink eye. She states that now mother has it. Onset- this morning Location- RT eye Itch- no Pain- no Redness- yes Swollen- no Goopy/ crusty- yes Vision changes- no Double/ blurred vision- no Contacts/ glasses- no History of Present Illness I have reviewed and verified the staff HPI to be accurate for this encounter. Review of Systems PHQ Score Initial Depression Screen Score: 0 ROS - Provider Constitutional: fever no, chills no, sweats no, weakness no Skin: rash no, lesions no, petechiae no Eye: eye pain no, discharge yes, purulent, light sensitivity yes, eye irritation yes, double vision no, blurring no, vision loss no ENMT: ear pain no, ear drainage no, sore throat no, nasal congestion no , nasal drainage no hoarseness no Cardiovascular: chest pain no, palpitations no, edema no Gastrointestinal: nausea no, vomiting no, diarrhea no Neurologic: headache no, dizziness no, numbness/tingling no, weakness no Physical Exam Vitals & Measurements T: 36.7 ?C(Temporal Artery) HR: 58(Peripheral) BP: 110/62 SpO2: 100% HT: 68 in HT: 172 cm WT: 73.1 kg WT: 160.82 lb BMI: 24.71 General: Well developed, well nourished, in no acute distress Eyes: Pupils equal, round and reactive to light. Right Conjunctivae and sclerae mildly injected with dried purulent drainage noted. EOM intact Ears: No deformity or lesion of external ear. Canals and TM appear normal bilaterally. TM?s intact, not inflamed, with normal light reflex. Hearing grossly normal to conversational speech Nose: No deformity, discharge, inflammation, or lesions Mouth: Mucous membranes moist. Normal oropharynx, and posterior pharynx without lesions or exudates. Tongue normal Neck: Neck supple. No masses or palpable cervical nodes. Trachea midline. Lungs: Normal respiratory effort and clear to auscultation Cardio: Regular rate and rhythm, normal S1 and S2, no murmur, no rub Skin: No rashes, ulcerations, or suspicious lesions to visible skin Mental Status: Alert and oriented x3. Normal mood and affect Assessment/Plan 1. Bacterial conjunctivitis of right eye (H10.9: Unspecified conjunctivitis) Dispose of recent contacts and eye make-up. Reviewed hand hygiene to prevent spread to other eye. Discussed contagious until 24 hr use of antibiotic. Use of warm compresses. Discussed sx that would indicate prompt f/u (severe eye pain, vision loss, s/sx periorbital edema). Follow up with your PCP/ophthalmology within 1 week for recheck or sooner for If no improvement of symptoms or for severe or worsening symptoms. Orders: polymyxin B-trimethoprim ophthalmic, 1 drop(s), OPTH, q3hr for 7 day(s), 10 mL, Refill(s) 0, [facility]/pharmacy #[id number], 172, cm, 07/02/22 11:32:00 EDT, Height/Length Dosing, 73.1, kg, 07/02/22 11:32:00 EDT, Weight Dosing Follow-up With When Contact Information KATELYN ROBERTS CNP [address] [place] [address] Additional Instructions: Patient Education Bacterial Conjunctivitis, Adult Problem List/Past Medical History Ongoing Amenorrhea, secondary Bacterial conjunctivitis of right eye Bipolar 1 disorder, mixed, moderate Cellulitis, leg Chronic abdominal pain Depression Migraines Pelvic pain Peroneal neuritis PTSD (post-traumatic stress disorder) Right hand pain Screening for cardiovascular condition Screening for thyroid disorder Smoker Vulvovaginitis Historical Depression Laceration of kidney without open wound into abdominal cavity orthostatic fainting Pseudoseizures Suicidal ideation Procedure/Surgical History Betamethasone (02/01/2017), Betamethasone (01/31/2017), lacerated Kidney (2008), Right Hand Surgery. Medications Polytrim 10 mL Soln-Opth, 1 drop(s), OPTH, q3hr Prozac, 20 mg, Oral, Daily Allergies clindamycin (Hives) Social History Alcohol - Denies Alcohol Use, 04/26/2019 Current, Beer, Wine, 1-2 times per month, Household alcohol concerns: No., 04/15/2020 Employment/School - Not employed or in school, 01/31/2017 Employed, Work/School description: at home. 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 Highest education level: High school., 06/15/2013 Exercise - Occasional exercise, 06/15/2013 Home/Environment - No Risk, 02/07/2017 Lives with Children, Spouse. Living situation: Home/Independent. Alcohol abuse in household: No. Substance abuse in household: No. Smoker in household: No. Injuries/Abuse/Neglec t in household: No. Feels unsafe at home: No. Safe place to go: Yes. Agency(s)/Others notified: No. Family/Friends available for support: Yes. Concern for family members at home: No. Major illness in household: No. Financial concerns: No., 02/07/2017 Lives with Spouse. Alcohol abuse in household: No. Substance abuse in household: No. Smoker in household: Yes. Injuries/Abuse/Neglec t in household: No. Feels unsafe at (more content not included)... [facility] Comment on above: Result Comment: Elec tronically Signed By: ALEJANDRA RUCKER, KATELYN Dietz\.br\Date and Time Signed: 07/02/22 12:45 EDT Patient Educationon 07-03-19 23 Patient Education Infectious Disease Bacterial Conjunctivitis, Adult Bacterial conjunctivitis is an [...] if you come into close contact with: ? A person who is infected with the bacteria. ? Items that are contaminated with the bacteria, such as a face towel, contact lens solution, or eye makeup. What increases the risk? You are more likely to develop this condition if: ? You are exposed to other people who have the infection. ? You wear contact lenses. ? You have a sinus infection. ? You have had a recent eye injury or surgery. ? You have a weak body defense system (immune system). ? You have a medical condition that causes dry eyes. What are the signs or symptoms? Symptoms of this condition include: ? Thick, yellowish discharge from the eye. This may turn into a crust on the eyelid overnight and cause your eyelids to stick together. ? Tearing or watery eyes. ? Itchy eyes. ? Burning feeling in your eyes. ? Eye redness. ? Swollen eyelids. ? Blurred vision. How is this diagnosed? This condition is diagnosed based on your symptoms and medical history. Your health care provider may also take a sample of discharge from your eye to find the cause of your infection. How is this treated? This condition may be treated with: ? Antibiotic eye drops or ointment to clear the infection more quickly and prevent the spread of infection to others. ? Antibiotic medicines taken by mouth (orally) to treat infections that do not respond to drops or ointments or that last longer than 10 days. ? Cool, wet cloths (cool compresses) placed on the eyes. ? Artificial tears applied 2?6 times a day. Follow these instructions at home: Medicines ? Take or apply your antibiotic medicine as told by your health care provider. Do not stop using the antibiotic, even if your condition improves, unless directed by your health care provider. ? Take or apply yope-wtt-nevwbvb and prescription medicines only as told by your health care provider. ? Be very careful to avoid touching the edge of your eyelid with the eye-drop bottle or the ointment tube when you apply medicines to the affected eye. This will keep you from spreading the infection to your other eye or to other people. Managing discomfort ? Gently wipe away any drainage from your eye with a warm, wet washcloth or a cotton ball. ? Apply a clean, cool compress to your eye for 10?20 minutes, 3?4 times a day. General instructions ? Do not wear contact lenses until the inflammation is gone and your health care provider says it is safe to wear them again. Ask your health care provider how to sterilize or replace your contact lenses before you use them again. Wear glasses until you can resume wearing contact lenses. ? Avoid wearing eye makeup until the inflammation is gone. Throw away any old eye cosmetics that may be contaminated. ? Change or wash your pillowcase every day. ? Do not share towels or washcloths. This may spread the infection. ? Wash your hands often with soap and water for at least 20 seconds and especially before touching your face or eyes. Use paper towels to dry your hands. ? Avoid touching or rubbing your eyes. ? Do not drive or use heavy machinery if your vision is blurred. Contact a health care provider if: ? You have a fever. ? Your symptoms do not get better after 10 days. Get help right away if: ? You have a fever and your symptoms suddenly get worse. ? You have severe pain when you move your eye. ? You have facial pain, redness, or swelling. ? You have a sudden loss of vision. Summary ? Bacterial conjunctivitis is an infection of the clear membrane that covers the white part of the eye and the inner surface of the eyelid (conjunctiva). ? Bacterial conjunctivitis spreads easily from eye to eye and from person to person (is contagious). ? Wash your hands often with soap and water for at least 20 seconds and especially before touching your face or eyes. Use paper towels to dry your hands. ? Take or apply your antibiotic medicine as told by your health care provider. Do not stop using the antibiotic even if your condition improves. ? Contact a health care provider if you have a fever or if your symptoms do not get better after 10 days. Get help right away if you have a sudden loss of vision. This information is not intended to replace advice given to you by your health care provider. Make sure you discuss any questions you have with your healt (more content not included)... [facility] Coding Summary.on 06-23-2022 Coding Summary. [id number] W w+PGhlYWQ+[id number] wiGForZ5rZ6DMDVnCThlx LMIINVuQNbLgrrBcDK7nu XNjZXJu IC8+PH5qBRCmZydkmTKhf 0N6tBV0Z59aqi6oMKszyX U2KBXoMlOjgjbul7mftDt 6IDcuNmluOyBt YHKhvS54KVL1kJ05Ul85q XMfwVIxa4ivxWa5GhFmVY VkQTX0lBvuQDbxc2WiYWG kS20tbSBqm7C5 OWJpnZntoLLcSfJiaIF1b Q0mPDhqrtieg3xbtnpiRs n9fz74lAEqq8M3mXF8K7S npcY8OCAdhNZb FiwubZWEbY8rwpxqy8asb wrnZaKaBOZvPBs9MPz3JP EalCzfLfVjWD60XSW6OGC qhcHuD8XwJAIf aGujDbC6l8O1Ry3KM8DJY siyY7XTQHOOUHxgfKS+PC 94cu26H6MzJoydQez5HJR bDFJ7vVF0eS6v PAMbYPgmc0B0vYO9T0Ahn nNgoi7zs3qlVNUeDWdiY8 7exVVoc0T0DHMpiKY7DUL eeDzaDvJrtM30 Oyc+WDBljLkge5LtLimjj 2bbe9noaAp5WetcLDMzoa BrlAqfTPL7j1RwVu4sBZF elPJ7pSJ0hN3u UoRgNpQ8JQrhO345HiQkp EQhRxeeP11eN6AfnZI+PH FwEqj5IZVyvCtpKS7nN6O hZGRpbmctbGVm wRsuKU3wYJFgzsafIKTyd B7wWUWyG6u3OdZgVyK3WI faG3GfJMZljgylKt67rH2 xHqIcPeG9IUwq X5GnhiI4PJTxdGEyFHxgE NT5N90ew7G1IYAjDXRrUY N8hUU5xK3awCjesifkyOO mdDsgdmVydGlj JFjlLOffF608UDCxdXevN kNvZGluZyBEYXRlOiAgMD QvMTkvMjAyMzwvdGQ+PHR cFZA6kZijKIRn kVAqTNqiQr5uyJenoPzrB A7yQOWccjpqURHgqI3nBA OmuMShvXsjVQ8lFWBqeyb du006WdDaRJN1 PKZbgZSwR4MvoX8nAgKoQ ZGyDBWqP1DboUKtMQxeM5 79UAulJsZ0PFLivuPgN2H sLWFsaWduOiB0 e4Q6Qe5So3XmbcufV0Cof SHiFkYkVaylHZk2Z8DfMs wvdHI+UE18KSBjAX46IFv 8IUX9cXaeCRkw YETzS7LguE2yTjTjIFYwL GRkOyc+PHRhYmxlIHdpZH RoPScxMDAlJyBzdHlsZT0 eSp7pUGAcIVIb eUslkDWrIaTwf9klOTMrH XkdWP0xeZdmO0VtnBF7GC Iqi6x6In81R04pT6RfiLN +XHFgtXW1oIC0 xO2sZkZmCiC9YMidC142F fYpePRfZpeat4iol3cxdI n9WiN1URTmraUhkJvvAZH 3a6XlJd77U82r IHdpZHRoPSIxNSUiIHZhb Sksdj8lvA2kLz3+PGNvbC B4yCI4sZ3pEsKuUpQ6FSi pT802DsYyjHFi Ggbzv4pua7nfsOq0KtFrU MSgxlTbeHmnJFX9j4CoGr 84I6NvzTkki7XnGai4bg6 1uFZxb7F1eUF8 C7ZuHZGbmstlzOQucLyqD Z1zYOYysphrXHBliT9pLX DuS7e5OqSoZzT2WVfwP0Q esdY5QTAjqOVq LNCgySQYeZ1jowuun6rqv mazNlZeTWPzGOf6ZFh8EU GnvUhlQaLbJLB1ZnH0VTW 7wHEoiJ0jfKvx bqpgeM4sRwz+PFF0rQQap LGLHC8lQolljMZ+PHRkIH Y0zNajNJwlPETveE8jURE sZ9t4VrJgCzK9 UXbxP4RrxsN3DKYwuHTsG UOhvEBFyQ7cubjnl3epii nvUsVgOWTmIAt5GDf6TGP saWduOiBsZWZ0 XkK0AES5yIUuxB9pmJaci cnmlD2bCzx+QmlydGggRG M5DDn2S9EyUas4NJUupYb aEF6izQFgDOnd Sj7eyOnyxHicXB4hWORef ugwv234GuDjd9vqJRWgrC JnCCeiMHR9I83sp8P4TDI lDNLoVQK4cPF0 pC8gjDquaftwfGQdbXwvb nScfErhYXbkCSuuB560TW SveTtjYhDfHHc3C3IdKkv 2JBOzjNasNQ3h aKRdRIrtXo1ydQxogWzzG D4cZKQxhsmnd908HoWxd4 jwOJTsdOFzUAgcZDI8Q07 yu0S1DBRlOUKx NRJ5cON9nF9yxWvdsxmar GVmdDsgdmVydGljYWwtYW mkQ020MNNujWjiInRimQl 5L4FwBam9BYSl aLapBT8qeUBmPLwlJw1dm ArcrBggMH0yMIVarzhvh0 84ZjNbs9ddZEFekKVbBRd iPPO9R29om4R5 GWFuBCYfUBH8zYT4bE9rq GlnbjogbGVmdDsgdmVydG gfCSzlZHpxT631LTCmyVh nPlBhdGllbnQg GLzqMOq4P9YkGbddqCD+P B44PXMmDB19dEDirURmi2 lanId8VhSkILBbKDD0jDu sLMjvp4JjBDGm Y23xtXFdt7O4BWIwbQaiw ZTuUhAkeNZ2wC3pULaucn jah3yxklbhJjstf8mikc9 5vR66V30eNObu ZHRoPSIzMCUiIHZhbGlnb q7dyG9hXw0+IVRwkGX3nT M0hT0hIZTiHaZ4RIxtL50 9InRvcCIvPjxj f6qou1wkwPt8IhE1RWNbp fYnuTmmNKX8s9JmRi15D5 9sIHdpZHRoPSIyMCUiIHZ pbQpzee1orW3c Ii8+JXWixWD9zUZ7eM2kE oDwLaM1ULwzA914MjZdcJ RjHolnH53iN6PrhLM+PHR lRck7DRNexZlc WO4zjHHuSBrkAz9uGZU4J wUmEhMgJRbyS4QoCCGrpv ucsvgrdLM5VYFmUPSydR3 3Ke2cmFjgJKNp uYAJiX5owyqqv0ygigfjX iVoCBMyDUu6FFy6PCZsqQ wgWcEdXQN6XwL7EDB2sQX oeX7zgJtdoxyh dY7bA4CpVOZjisspPi33o Q0bJoNoAiJ3OGtzOoo+U0 oQA3vWNUOTD7VBSJyJNKJ NQVJJRTwvdGQ+ ODYfZSF6uIieXZhfESXim U3uLJRpR7n6VzDnEsL9EN zfA3YzABQffinqOp99lV3 sQjZoAaQ3LEbg K3TopmR3GXGnbZPkMSprD NR6I80sc2R2OMOfWWYiTG L2tWD3sY4eaAvfevrbqKJ mdDsgdmVydGlj OKhdRVhoS543OGWhsCtvK kCvFqEpTyO6ILF1U9GxDa z3VYKxqEntNK8hdCRnVPw jIi9vcKdbyAhn SZ4vBRLpgabbKCZvwR5gO LLihDEysOfeGF9qPICdax gtw823ZdAyETR7CNTscWZ qR8WwrF8dGhLr TZDuDABeU7MsuYDbMAkuS 232OKmpMpE8BVYyjvChN6 ThSBHfwVnkIcS4c5C4Gg5 yNyBZZWFyczwv dGQ+GLKcQSP0bVksNLwhH XYieW6fWDOlZ8z2TnQeBz H5QFgyM1HvRQGnmwhgEd0 8mT8xUcCnKqD7 UAizL7GshpS8LWVhpTIhI MplUBU7H59fd3L7RAMrRG YlQQX1cDJ8tQ0heThiteq gbGVmdDsgdmVy mCjtRCzfIJzfL749BTKxz DsnPkZlbWFsZTwvdGQ+PH VfKNV1nZnrHIkkCVGquQ9 uYSRmM0z3TtRs KpC2KFspV3ReDVStbnvaU g36aV2tTeFlTtV7FLjeT8 RqvpR2JBRvjGLjJZwdBVU 6W53fw8R5CNZa HZLiZET8cNC8oM7euOrlb jogbGVmdDsgdmVydGljYW haBKpvE989NQHzaEodCn8 5qNJwsNzngsP7 V3UbArskgGG+DF62MCCtZ D70uUFloRVqs7zfhPc1Wv NnXNFiLGD9pAqbPJayi0K nDUFlA39laOIy d7W4XEVydMzfsWJkSaJdi NQ9tL9cVYrlgsstm3balp bdGipfx0xkus51qK11N38 sIHdpZHRoPSIz GWNiJMUcaVndkw6whO9oV i8+GZQykCD9pXJ8cR3tUi KwGtB5TCcwO650DbSfrSO kLlzmb1tmd6vh lOz6ShClOBMktdBniInyO HR5r2ArHj96Q79jFXbkUK RoPSIyMCUiIHZhbGlnbj0 jcY6wTr4+PC9j y5czhn72bU50aOO+PHRkI UH3jQczXMyfDFUdsQ7zLS wcYzB3QSQaOuYzzS82xWV mMXefPg5haPvw qYnmYF0xODXvpiigr470B bXma6jhBVYqeMPnUQuaVP F8M44ab6W9CFHfPLOwHVA 5xXI9bS2vvHyg bjogbGVmdDsgdmVydGljY CmaJPgyR848WICzaAmcEo XfuCOyG5trztDVSY4hOqb vdGQ+PHRkIHN0 dQywLLheFGHmsT4wKDMdO 6y7QrCoSfW7NYnjR0Imcc O2FHKhsYVdFGXraJSCwF4 edzllt3gvhbbt RcNtSDZdNWt0XYu4UGMtj YolKtWpSVH3MkG8EQY5mB YnwC9pyNssnnootB6hFpu +RklOOjwvdGQ+ DJOaHHI5eVrgQNncYEVev I7lMLLdU8e3VyPnZkD8DR zzP0HvmeA9XOWjgEZpJDC ypEMLuZ6atnfj w6vzhoxaCmHhMVYbXYy7U Fy0KVMewSxmFxQrFCL6Ha V6OLF2fNAsrD2qyAthadx rqZ2uJkm+TVJO OjwvdGQ+CTEvVDB3rHegZ EmzARKtqF8cXQAwC8f2Uy PjKxH7CYnxT3AbtnT4CUE vbGQgMTBwdCBU kG0smztia3vpdbxrNrOzC HRmZVa8YLb6IRBtzTbrHr IjGYY6LtG3VGE8bCJcpV5 ycIzjwagoaU1c Oyc+ZGF5WGY0AM60EX85R 3RyPjwvdGFibGU+PHRhYm xlIHdpZHRoPScxMDAlJyB kdAmkBI4sGk9x ZGVyLWNv (more content not included)... Normal [facility] Patient Educationon 06-23-19 Patient Education Abdominal Pain, Adul t Pain in the abdomen (abdominal pain) can be caused by many things. Often, abdominal pain is not serious and it gets better with no treatment or by being treated at home. However, sometimes abdominal pain is serious. Your health care provider will ask questions about your medical history and do a physical exam to try to determine the cause of your abdominal pain. Follow these instructions at home: Medicines ? Take rdqi-zsn-jjmsjsb and prescription medicines only as told by your health care provider. ? Do not take a laxative unless told by your health care provider. General instructions ? Watch your condition for any changes. ? Drink enough fluid to keep your urine pale yellow. ? Keep all follow-up visits as told by your health care provider. This is important. Contact a health care provider if: ? Your abdominal pain changes or gets worse. ? You are not hungry or you lose weight without trying. ? You are constipated or have diarrhea for more than 2?3 days. ? You have pain when you urinate or have a bowel movement. ? Your abdominal pain wakes you up at night. ? Your pain gets worse with meals, after eating, or with certain foods. ? You are vomiting and cannot keep anything down. ? You have a fever. ? You have blood in your urine. Get help right away if: ? Your pain does not go away as soon as your health care provider told you to expect. ? You cannot stop vomiting. ? Your pain is only in areas of the abdomen, such as the right side or the left lower portion of the abdomen. Pain on the right side could be caused by appendicitis. ? You have bloody or black stools, or stools that look like tar. ? You have severe pain, cramping, or bloating in your abdomen. ? You have signs of dehydration, such as: ? Dark urine, very little urine, or no urine. ? Cracked lips. ? Dry mouth. ? Sunken eyes. ? Sleepiness. ? Weakness. ? You have trouble breathing or chest pain. Summary ? Often, abdominal pain is not serious and it gets better with no treatment or by being treated at home. However, sometimes abdominal pain is serious. ? Watch your condition for any changes. ? Take [id number] and prescription medicines only as told by your health care provider. ? Contact a health care provider if your abdominal pain changes or gets worse. ? Get help right away if you have severe pain, cramping, or bloating in your abdomen. This information is not intended to replace advice given to you by your health care provider. Make sure you discuss any questions you have with your health care provider. Document Revised: 04/11/2020 Document Reviewed: 07/02/2019 ElseLXSN Patient Education ? 2022 [employer] Normal [facility] XR Hand 3+ Views Righton XR Hand 3+ Views Right Exam Date/Time: 06/16/2022 11:29 EDT Reason for Exam: M79.641 pain in right hand;Pain, Non Traumatic Report IMPRESSION: NEGATIVE RIGHT HAND. CLINICAL HISTORY: Pain, Non Traumatic, M79.641 pain in right hand COMPARISONS: NONE AVAILABLE FINDINGS: AP, lateral and oblique views of the right and. Remote internal fixation proximal right third and fourth metacarpal. No abnormal lucency bone prosthetic interface. No fracture, dislocation, bone lesion. Ordering Provider: KATELYN ROBERTS FINAL REPORT Dictated: 06/17/2022 7:30 pm Kp Medrano MD Signed (Electronic Signature): 06/17/2022 7:30 pm Signed by: Kp Medrano MD Transcribed by: DP Technologist: ORB Technical Comments Radiation Dose: Ka,r in mGy = na DAP = na Normal [facility] Consent for Treatmenton 06-05 Consent for Treatment [id number]:[id number] Normal [facility] MICRO OTHER TESTSOrdered By: Brian Dejesus on 05-11-2022 S. pyogenes Ag IA.rapid Ql (Throat) Negative (05/11/22 10:19 PM) Normal Negative [facility] Man Sero CHEMISTRYOrdered By: SYSTEM SYSTEM on 04-27-2022 Anion [...] rate/Area] mL/min/1.73 m2 Normal >=59mL/min/1 .73 m2 [facility] Chem S GFR/1.73 sq M.predicted among non-blacks MDRD (S/P/Bld) [Vol rate/Area] mL/min/1.73 m2 Normal >=59mL/min/1 .73 m2 [facility] Chem S Glucose [Mass/Vol] 89 mg/dL Normal 55 - 199 mg/dL [facility] Potassium [Moles/Vol] 4.4 mmol/L Normal 3.5 - 5.3 mmol/L [facility] Sodium [Moles/Vol] 138 mmol/L Normal 135 - 145 mmol/L [facility] Triglyceride [Mass/Vol] 27 mg/dL Normal <=149mg/dL [facility] TSH Qn 2.17 m[IU]/L Normal 0.34 - 5.60 mcIU/mL [facility] Remisol Urea nitrogen [Mass/Vol] 22 mg/dL High 5 - 21 mg/dL [facility] Remisol Urea nitrogen/Creatinine [Mass ratio] 28 mg/mg High 10 - 20 [facility] Remisol HEMATOLOGYOrdered By: SYSTEM SYSTEM on 04-27-2022 Basophils/100 WBC (Bld) 0.9 % Normal 0.0 - 2.0 % [facility] HemeAutoSS Basophils/Leukocytes Auto (Bld) [Pure # fraction] 0.1 E9/L Normal 0.0 - 0.2 E9/L [facility] HemeAutoSS Eosinophils/100 WBC (Bld) 2.7 % Normal 0.0 - 8.0 % [facility] HemeAutoSS Eosinophils/Leukocytes Auto (Bld) [Pure # fraction] 0.2 E9/L Normal 0.0 - 0.5 E9/L [facility] HemeAutoSS Lymphocytes/100 WBC (Bld) 30.4 % Normal 14.0 - 50.0 % [facility] HemeAutoSS Lymphocytes/Leukocytes Auto (Bld) [Pure # fraction] 2.1 E9/L Normal 1.0 - 4.0 E9/L [facility] HemeAutoSS Monocytes/100 WBC (Bld) 7.2 % Normal 4.0 - 14.0 % [facility] HemeAutoSS Monocytes/Leukocytes Auto (Bld) [Pure # fraction] 0.5 E9/L Normal 0.2 - 1.0 E9/L [facility] HemeAutoSS Neutrophils/100 WBC (Bld) 58.8 % Normal 36.0 - 75.0 % [facility] HemeAutoSS Neutrophils/Leukocytes Auto (Bld) [Pure # fraction] 4.1 E9/L [...] 226.0 E9/L Normal 150.0 - 500.0 E9/L [facility] HemeAutoSS RBC (Bld) [#/Vol] 4.8 E12/L Normal 4.3 - 5.9 E12/L [facility] HemeAutoSS WBC corrected for nucl RBC Auto (Bld) [#/Vol] 7.0 E9/L Normal 4.0 - 11.0 E9/L [facility] HemeAutoSS US PELVIS AND TRANSVAGon US PELVIS AND [...] by: BONNIE MORGAN Date: 2022-04-14 18:23 Normal [facility] Pap IG, rfx Aptima HPV, rfx 16/18,45on 03-31-2022 . . Normal [facility] Comment on above: Result Comment: Perf ormed at: WB Performed By: #### P APHR2A #### [facility] [address] [place] [address] Dr. Dariel Silverman DIAGNOSIS: Comment Normal [facility] Comment on above: Result Comment: NEGA TIVE FOR INTRAEPITHELIAL LESION OR MALIGNANCY. Performed at: WB Performed By: #### P APHR2A #### [facility] [address] [place] [address] Dr. Dariel Silverman HPV Aptima Negative Normal Negative [facility] Comment on above: Result Comment: This nucleic acid amplification test detects fourteen high-risk HPV types (16,18,31,33,35,39,45,51,52,56,58,59,66,68) without differentiation. Performed at: =G Performed By: #### P APHR2A #### [facility] [address] [address] [address] Dariel Silverman HPV Genotype Reflex Comment Normal [facility] Comment on above: Result Comment: Crit erclemencia not met, HPV Genotype not performed. Performed at: WB Performed By: #### P APHR2A #### [facility] [address] [place] [address] Dr. Dariel Silverman Methodology: Comment Normal [facility] Comment on above: Result Comment: This liquid based ThinPrep(R) pap test was screened with the use of an image guided system. Performed at: WB Performed By: #### P APHR2A #### [facility] [address] [place] [address] Dr. Dariel Silverman Note: Comment Normal [facility] Comment on above: Result Comment: The Pap smear is a screening test designed to aid in the detection of premalignant and malignant conditions of the uterine cervix. It is not a diagnostic procedure and should not be used as the sole means of detecting cervical cancer. Both false-positive and false-negative reports do occur. . Performed at: WB Performed By: #### P APHR2A #### [facility] [address] [place] [address] Dr. Dariel Silverman Performed by: Comment Normal [facility] Comment on above: Result Comment: Urszula Chapman, Supervisory Bottle Washer (ASCP) Performed at: WB Performed By: #### P APHR2A #### [facility] [address] [place] [address] Dr. Dariel Silverman Specimen adequacy: Comment Normal [facility] Comment on above: Result Comment: Sati sfactory for evaluation. Endocervical and/or squamous metaplastic cells (endocervical component) are present. Performed at: WB Performed By: #### P APHR2A #### [facility] [address] [place] [address] Dr. Dariel Silverman MICRO OTHER TESTSOrdered By: Makeda Thomas on 03-04-2022 Rapid COV Int NEG Ctl Pass (03/04/22 10:47 PM) Normal [facility] Man Sero Rapid COV Int POS Ctl Pass (03/04/22 10:47 PM) Normal [facility] Man Sero RSV Ag IA.rapid Ql (Nph) Negative (03/04/22 10:47 PM) Normal Negative [facility] Sero SARS-CoV+SARS-CoV-2 (COVID-19) Ag IA.rapid Ql (Resp) Not Detected (03/04/22 10:47 PM) Normal Not Detected [facility] Man Sero US PELVIS AND TRANSVAGon US [...] EVELYN WHITEHEAD Date: 2022-01-21 06:36 Normal [facility] CHLAMYDIA/GONOCOCCUS ARMEN (SW AB/URINE/PAPon 01-17-2022 Chlamydia trachomatis, ARMEN Negative Normal Negative [facility] Comment on above: Performed By: #### U MICRO, UACSIND #### [facility] [address] [place] [address] Dr. Dariel Silverman Neisseria gonorrhoeae, ARMEN Negative Normal Negative [facility] Comment on above: Performed By: #### U MICRO, UACSIND #### [facility] [address] [address] [address] Dariel Silverman VAGINITIS/VAGINOSIS DNA PROB Brandt 01-15-2022 Olya species Negative Normal Negative [facility] Comment on above: Performed By: #### V AGINT #### [facility] [address] [place] [address] Dr. Dariel Silverman Gardnerella vaginalis Negative Normal Negative [facility] Comment on above: Performed By: #### V AGINT #### [facility] [address] [place] [address] Dr. Dariel Silverman Trichomonas vaginalis Negative Normal Negative [facility] Comment on above: Performed By: #### V AGINT #### [facility] [address] [place] [address] Dr. Dariel Silverman VAGINITIS/VAGINOSIS DNA PROB Brandt 10-24-2021 Olya species Negative Normal Negative [facility] Comment on above: Performed By: #### U MICRO, UACSIND #### [facility] [address] [place] [address] Dr. Dariel Silverman Gardnerella vaginalis Negative Normal Negative [facility] Comment on above: Performed By: #### U MICRO, UACSIND #### [facility] [address] [place] [address] Dr. Dariel Silverman Trichomonas vaginalis Negative Normal Negative [facility] Comment on above: Performed By: #### U MICRO, UACSIND #### [facility] [address] [place] [address] Dr. Dariel Silverman ANTIBODY ID PANELon 08-19-19 ANTIBODY ID PANEL Antibody ID Anti-D Blood Bank Notes likely due to rhogam given on 06/03/21 Normal [facility] Comment on above: Performed By: #### A BID #### [facility] [address] [place] [address] Dr. Dariel Silverman CBC AUTO DIFFon 08-15-2021 BASO # 0.1 103/ul Normal 0.0-0.1 [facility] Comment on above: Performed By: #### U MICRO, UACSIND #### [facility] [address] [place] [address] Dr. Dariel Silverman Basophils/100 WBC (Bld) 0.4 % Normal 0.2-2.0 [facility] Comment on above: Performed By: #### U MICRO, UACSIND #### [facility] [address] [address] [address] Dariel Silverman EO # 0.2 103/ul Normal 0.0-0.7 [facility] Comment on above: Performed By: #### U MICRO, UACSIND #### [facility] [address] [place] [address] Dr. Dariel Silverman Eosinophils/100 WBC (Bld) 1.7 % Normal 0.9-7.0 [facility] Comment on above: Performed By: #### U MICRO, UACSIND #### [facility] [address] [place] [address] Dr. Dariel Silverman Erythrocyte distribution width (RBC) [Ratio] 13.1 % Normal 11.0-15.0 [facility] Comment on above: Performed By: #### U MICRO, UACSIND #### [facility] [address] [place] [address] Dr. Dariel Silverman Hematocrit (Bld) [Volume fraction] 31.6 % Critically low 36.0-48.0 [facility] Comment on above: Performed By: #### U MICRO, UACSIND #### [facility] [address] [place] [address] Dr. Dariel Silverman Hemoglobin (Bld) [Mass/Vol] 9.9 g/dL Critically low 12.0-16.0 [facility] Comment on above: Performed By: #### U MICRO, UACSIND #### [facility] [address] [place] [address] Dr. Dariel Silverman IG # 0.09 10e3/ul Critically high 0.00-0.03 [facility] Comment on above: Performed By: #### U MICRO, UACSIND #### [facility] [address] [place] [address] Dr. Dariel Silvemran IG % 0.7 % Critically high 0.0-0.5 [facility] Comment on above: Performed By: #### U MICRO, UACSIND #### [facility] [address] [place] [address] Dr. Dariel Silverman LYMPH # 3.2 103/ul Normal 1.2-3.8 [facility] Comment on above: Performed By: #### U MICRO, UACSIND #### [facility] [address] [address] [address] Dariel Silverman Lymphocytes/100 WBC (Bld) 25.1 % Normal 20.5-60.0 [facility] Comment on above: Performed By: #### U MICRO, UACSIND #### [facility] [address] [address] [address] Dariel Silverman MANUAL DIFF REQ NO Normal [facility] Comment on above: Performed By: #### U MICRO, UACSIND #### [facility] [address] [place] [address] Dr. Dariel Silverman MCH (RBC) [Entitic mass] 25.5 pg Critically low 26.7-34.0 [facility] Comment on above: Performed By: #### U MICRO, UACSIND #### [facility] [address] [place] [address] Dr. Dariel Silverman MCHC (RBC) [Mass/Vol] 31.3 g/dL Normal 29.9-35.2 [facility] Comment on above: Performed By: #### U MICRO, UACSIND #### [facility] [address] [place] [address] Dr. Dariel Silverman MCV (RBC) [Entitic vol] 81.4 fL Normal 81.0-99.0 [facility] Comment on above: Performed By: #### U MICRO, UACSIND #### [facility] [address] [place] [address] Dr. Dariel Silverman MONO # 1.0 103/ul Critically high 0.3-0.8 [facility] Comment on above: Performed By: #### U MICRO, UACSIND #### [facility] [address] [place] [address] Dr. Dariel Silverman Monocytes/100 WBC (Bld) 7.8 % Normal 1.7-12.0 [facility] Comment on above: Performed By: #### U MICRO, UACSIND #### [facility] [address] [place] [address] Dr. Dariel Silverman NEUT # 8.1 103/ul Critically high 1.4-6.5 [facility] Comment on above: Performed By: #### U MICRO, UACSIND #### [facility] [address] [address] [address] Dariel Silverman Neutrophils/100 WBC (Bld) 64.3 % Normal 43.0-75.0 [facility] Comment on above: Performed By: #### U MICRO, UACSIND #### [facility] [address] [place] [address] Dr. Dariel Silverman Platelet mean volume (Bld) [Entitic vol] 10.3 fL Normal 9.5-13.5 [facility] Comment on above: Performed By: #### U MICRO, UACSIND #### [facility] [address] [place] [address] Dr. Dariel Silverman PLT 220 103/ul Normal 150-450 [facility] Comment on above: Performed By: #### U MICRO, UACSIND #### [facility] [address] [place] [address] Dr. Dariel Silverman RBC 3.88 106/ul Critically low 4.20-5.40 [facility] Comment on above: Performed By: #### U MICRO, UACSIND #### [facility] [address] [place] [address] Dr. Dariel Silverman WBC 12.6 103/ul Critically high 4.0-11.0 [facility] Comment on above: Performed By: #### U MICRO, UACSIND #### [facility] [address] [place] [address] Dr. Dariel Silverman CBC AUTO DIFFon 08-14-2021 BASO # 0.0 103/ul Normal 0.0-0.1 [facility] Comment on above: Performed By: #### U MICRO, UACSIND #### [facility] [address] [place] [address] Dr. Dariel Silverman Basophils/100 WBC (Bld) 0.3 % Normal 0.2-2.0 [facility] Comment on above: Performed By: #### U MICRO, UACSIND #### [facility] [address] [address] [address] Dariel Silverman EO # 0.1 103/ul Normal 0.0-0.7 [facility] Comment on above: Performed By: #### U MICRO, UACSIND #### [facility] [address] [place] [address] Dr. Dariel Silverman Eosinophils/100 WBC (Bld) 0.9 % Normal 0.9-7.0 [facility] Comment on above: Performed By: #### U MICRO, UACSIND #### [facility] [address] [place] [address] Dr. Dariel Silverman Erythrocyte distribution width (RBC) [Ratio] 13.0 % Normal 11.0-15.0 [facility] Comment on above: Performed By: #### U MICRO, UACSIND #### [facility] [address] [place] [address] Dr. Dariel Silverman Hematocrit (Bld) [Volume fraction] 30.9 % Critically low 36.0-48.0 [facility] Comment on above: Performed By: #### U MICRO, UACSIND #### [facility] [address] [place] [address] Dr. Dariel Silverman Hemoglobin (Bld) [Mass/Vol] 10.3 g/dL Critically low 12.0-16.0 [facility] Comment on above: Performed By: #### U MICRO, UACSIND #### [facility] [address] [place] [address] Dr. Dariel Silverman IG # 0.06 10e3/ul Critically high 0.00-0.03 [facility] Comment on above: Performed By: #### U MICRO, UACSIND #### [facility] [address] [place] [address] Dr. Dariel Silverman IG % 0.6 % Critically high 0.0-0.5 [facility] Comment on above: Performed By: #### U MICRO, UACSIND #### [facility] [address] [place] [address] Dr. Dariel Silverman LYMPH # 2.4 103/ul Normal 1.2-3.8 [facility] Comment on above: Performed By: #### U MICRO, UACSIND #### [facility] [address] [place] [address] Dr. Dariel Silverman Lymphocytes/100 WBC (Bld) 22.7 % Normal 20.5-60.0 [facility] Comment on above: Performed By: #### U MICRO, UACSIND #### [facility] [address] [place] [address] Dr. Dariel Silverman MANUAL DIFF REQ NO Normal [facility] Comment on above: Performed By: #### U MICRO, UACSIND #### [facility] [address] [place] [address] Dr. Dariel Silverman MCH (RBC) [Entitic mass] 26.0 pg Critically low 26.7-34.0 [facility] Comment on above: Performed By: #### U MICRO, UACSIND #### [facility] [address] [place] [address] Dr. Dariel Silverman MCHC (RBC) [Mass/Vol] 33.3 g/dL Normal 29.9-35.2 [facility] Comment on above: Performed By: #### U MICRO, UACSIND #### [facility] [address] [place] [address] Dr. Dariel Silverman MCV (RBC) [Entitic vol] 78.0 fL Critically low 81.0-99.0 [facility] Comment on above: Performed By: #### U MICRO, UACSIND #### [facility] [address] [place] [address] Dr. Dariel Silverman MONO # 0.8 103/ul Normal 0.3-0.8 [facility] Comment on above: Performed By: #### U MICRO, UACSIND #### [facility] [address] [place] [address] Dr. Dariel Silverman Monocytes/100 WBC (Bld) 7.9 % Normal 1.7-12.0 [facility] Comment on above: Performed By: #### U MICRO, UACSIND #### [facility] [address] [address] [address] Dariel Silverman NEUT # 7.2 103/ul Critically high 1.4-6.5 [facility] Comment on above: Performed By: #### U MICRO, UACSIND #### [facility] [address] [place] [address] Dr. Dariel Silverman Neutrophils/100 WBC (Bld) 67.6 % Normal 43.0-75.0 [facility] Comment on above: Performed By: #### U MICRO, UACSIND #### [facility] [address] [address] [address] Dariel Silverman Platelet mean volume (Bld) [Entitic vol] 10.5 fL Normal 9.5-13.5 [facility] Comment on above: Performed By: #### U MICRO, UACSIND #### [facility] [address] [place] [address] Dr. Dariel Silverman PLT 261 103/ul Normal 150-450 [facility] Comment on above: Performed By: #### U MICRO, UACSIND #### [facility] [address] [place] [address] Dr. Dariel Silverman RBC 3.96 106/ul Critically low 4.20-5.40 [facility] Comment on above: Performed By: #### U MICRO, UACSIND #### [facility] [address] [place] [address] Dr. Dariel Silverman WBC 10.6 103/ul Normal 4.0-11.0 [facility] Comment on above: Performed By: #### U MICRO, UACSIND #### [facility] [address] [place] [address] Dr. Dariel Silverman Covid-19 PCR ([facility])on 08-05 SARS-CoV-2 (COVID-19) RNA ARMEN+probe Ql (Unsp spec) Not detected Normal NOT DETECTED [facility] Comment on above: Result Comment: When [...] for this test is supported by the Supervisor Insulation of Health and Human Service's declaration that [...] Performed By: #### U MICRO, UACSIND #### [facility] [address] [place] [address] Dr. Dariel Silverman DIRECT COOMBSon 08-14-2021 DIRECT [place] Direct [place] Negative Blood Bank Notes test performed by sherlyn Bergman [facility] Comment on above: Performed By: #### D IRCMB #### [facility] [address] [place] [address] Dr. Dariel Silverman DRUG SCREEN RAPID (URINE)on 08-14-2021 AMP Negative Normal NEGATIVE [facility] Comment on above: Performed By: #### U MICRO, UACSIND #### [facility] [address] [place] [address] Dr. Dariel Silverman BAR Negative Normal NEGATIVE [facility] Comment on above: Performed By: #### U MICRO, UACSIND #### [facility] [address] [place] [address] Dr. Dariel Silverman BUP Negative Normal NEGATIVE [facility] Comment on above: Performed By: #### U MICRO, UACSIND #### [facility] [address] [place] [address] Dr. Dariel Silverman BZO Negative Normal NEGATIVE [facility] Comment on above: Performed By: #### U MICRO, UACSIND #### [facility] [address] [place] [address] Dr. Dariel Silverman FLORA Negative Normal NEGATIVE [facility] Comment on above: Performed By: #### U MICRO, UACSIND #### [facility] [address] [address] [address] Dariel Silverman CUT-OFFS SEE BELOW Normal [facility] Comment on above: Result Comment: AMP [...] Performed By: #### U MICRO, UACSIND #### [facility] [address] [place] [address] Dr. Dariel Silverman DRUG CUT HEADER DRUG CLASS TEST SYSTEM CUT-OFF CONCENTRATIONS ARE FOLLOWS: Normal [facility] Comment on above: Performed By: #### U MICRO, UACSIND #### [facility] [address] [address] [address] Dariel Silverman mAMP Negative Normal NEGATIVE [facility] Comment on above: Performed By: #### U MICRO, UACSIND #### [facility] [address] [address] [address] Dariel Silverman MTD Negative Normal NEGATIVE [facility] Comment on above: Performed By: #### U MICRO, UACSIND #### [facility] [address] [address] [address] Dariel Silverman OPI Negative Normal NEGATIVE [facility] Comment on above: Performed By: #### U MICRO, UACSIND #### [facility] [address] [address] [address] Dariel Silverman OXY Negative Normal NEGATIVE [facility] Comment on above: Performed By: #### U MICRO, UACSIND #### [facility] [address] [place] [address] Dr. Dariel Silverman PCP Negative Normal NEGATIVE [facility] Comment on above: Performed By: #### U MICRO, UACSIND #### [facility] [address] [address] [address] Dariel Silverman PPX Negative Normal NEGATIVE [facility] Comment on above: Performed By: #### U MICRO, UACSIND #### [facility] [address] [address] [address] Dariel Silverman TCA Negative Normal NEGATIVE [facility] Comment on above: Performed By: #### U MICRO, UACSIND #### [facility] [address] [address] [address] Dariel Silverman THC Negative Normal NEGATIVE [facility] Comment on above: Performed By: #### U MICRO, UACSIND #### [facility] [address] [place] [address] Dr. Dariel Silverman TYPE AND SCREENon 08-14-2021 TYPE AND SCREEN Negative Normal [facility] Comment on above: Performed By: #### U MICRO, UACSIND #### [facility] [address] [place] [address] Dr. Dariel Silverman CULTURE URINEon 08-09-2021 CULTURE URINE Culture Observations : LIGHT GROWTH OF MIXED GENITAL SURJIT. NO POTENTIAL PATHOGENS SEEN. Normal [facility] Comment on above: Performed By: #### U RCX #### [facility] [address] [place] [address] Dr. Dariel Silverman UA (CLEAN/CATCH) CERTIFIED ORTHOTIST/MICRO I F IND.on 08-09-2021 Bilirubin Ql (U) Negative Normal NEGATIVE [facility] Comment on above: Performed By: #### U MICRO, UACSIND #### [facility] [address] [address] [address] Dariel Silverman Clarity (U) CLEAR Normal CLEAR [facility] Comment on above: Performed By: #### U MICRO, UACSIND #### [facility] [address] [place] [address] Dr. Dariel Silverman Color (U) LT. YELLOW Normal YELLOW [facility] Comment on above: Performed By: #### U MICRO, UACSIND #### [facility] [address] [address] [address] Dariel Silverman Glucose Ql (U) Negative Normal NEGATIVE [facility] Comment on above: Performed By: #### U MICRO, UACSIND #### [facility] [address] [address] [address] Dariel Silverman Hemoglobin Ql (U) Negative Normal NEGATIVE [facility] Comment on above: Performed By: #### U MICRO, UACSIND #### [facility] [address] [address] [address] Dariel Silverman Ketones Ql (U) Negative Normal NEGATIVE [facility] Comment on above: Performed By: #### U MICRO, UACSIND #### [facility] [address] [address] [address] Dariel Silverman LEUKOCYTES SMALL Abnormal NEGATIVE [facility] Comment on above: Performed By: #### U MICRO, UACSIND #### [facility] [address] [address] [address] Dariel Silverman Nitrite Ql (U) Negative Normal NEGATIVE [facility] Comment on above: Performed By: #### U MICRO, UACSIND #### [facility] [address] [address] [address] Dariel Silverman pH (U) 8.5 [pH] Normal 5-9 [facility] Comment on above: Performed By: #### U MICRO, UACSIND #### [facility] [address] [address] [address] Dariel Silverman SPEC GRAVITY 1.015 Normal 1.005-<=1.02 5 [facility] Comment on above: Performed By: #### U MICRO, UACSIND #### [facility] [address] [address] [address] Dariel Silverman UA PROTEIN Negative Normal NEGATIVE/ TRACE [facility] Comment on above: Performed By: #### U MICRO, UACSIND #### [facility] [address] [place] [address] Dr. Dariel Silverman UR MICRO IND INDICATED Normal [facility] Comment on above: Performed By: #### U MICRO, UACSIND #### [facility] [address] [place] [address] Dr. Dariel Silverman Urobilinogen Qn (U) 0.2 {Ladonna'U}/dL Normal 0.2 - 1. 0 [facility] Comment on above: Performed By: #### U MICRO, UACSIND #### [facility] [address] [address] [address] Dariel Silverman URINE MICROSCOPIC ONLYon BACTERIA TRACE Abnormal NONE SEEN [facility] Comment on above: Performed By: #### U MICRO, UACSIND #### [facility] [address] [place] [address] Dr. Dariel Silverman Bacteria identified Cx Nom (U) INDICATED Normal [facility] Comment on above: Performed By: #### U MICRO, UACSIND #### [facility] [address] [place] [address] Dr. Dariel Silverman CAST NONE SEEN Normal NONE SEEN [facility] Comment on above: Performed By: #### U MICRO, UACSIND #### [facility] [address] [place] [address] Dr. Dariel Silverman Crystals LM Nom (Urine sed) NONE SEEN Normal NONE SEEN [facility] Comment on above: Performed By: #### U MICRO, UACSIND #### [facility] [address] [place] [address] Dr. Dariel Silverman Epithelial cells LM Ql (Urine sed) MODERATE Abnormal NONE SEEN /RARE [facility] Comment on above: Performed By: #### U MICRO, UACSIND #### [facility] [address] [place] [address] Dr. Dariel Silverman MUCOUS NONE SEEN Normal NONE SEEN [facility] Comment on above: Performed By: #### U MICRO, UACSIND #### [facility] [address] [place] [address] Dr. Dariel Silverman RBC 0-2 Normal 0-2 [facility] Comment on above: Performed By: #### U MICRO, UACSIND #### [facility] [address] [place] [address] Dr. Dariel Silverman WBC 2-5 Abnormal NONE SEEN [facility] Comment on above: Performed By: #### U MICRO, UACSIND #### [facility] [address] [place] [address] Dr. Dariel Silverman GROUP B STREP CULTUREon 07-06 S. agalactiae Ag Ql (Unsp spec) Culture Observations: Group B Strep called to Treva Hollis/office 07/27/21 @[address] [place] [address] Isolate 1 Streptococcus agalactiae Light growth of ORGANISM 1 Streptococcus agalactiae ANTIBIOTIC M.I.C RX STATUS Benzylpenicillin <=0.06 S F Ampicillin <=0.25 S F Cefotaxime <=0.12 S F Ceftriaxone <=0.12 S F Levofloxacin 0.5 S F Erythromycin >=8 R F Clindamycin >=1 R F Linezolid <=2 S F Vancomycin 0.5 S F Tetracycline >=16 R F Normal [facility] Comment on above: Performed By: #### G BSCX #### [facility] [address] [place] [address] Dr. Dariel Silverman US PREG CERVICAL LENGTHon [...] length, detailed above Electronically authenticated by: BONNIE MOGRAN Date: 2021-06-29 07:06 Normal [facility] CULTURE URINEon 06-28-2021 CULTURE URINE Culture Observations : NO GROWTH. Normal [facility] Comment on above: Performed By: #### U RCX #### [facility] [address] [place] [address] Dr. Dariel Silverman UA (CLEAN/CATCH) CERTIFIED ORTHOTIST/MICRO I F IND.on 06-28-2021 Bilirubin Ql (U) Negative Normal NEGATIVE [facility] Comment on above: Performed By: #### U MICRO, UACSIND #### [facility] [address] [address] [address] Dariel Silverman Clarity (U) CLEAR Normal CLEAR [facility] Comment on above: Performed By: #### U MICRO, UACSIND #### [facility] [address] [address] [address] Dariel Silverman Color (U) LT. YELLOW Normal YELLOW [facility] Comment on above: Performed By: #### U MICRO, UACSIND #### [facility] [address] [address] [address] Dariel Silverman Glucose Ql (U) Negative Normal NEGATIVE [facility] Comment on above: Performed By: #### U MICRO, UACSIND #### [facility] [address] [place] [address] Dr. Dariel Silverman Hemoglobin Ql (U) Negative Normal NEGATIVE [facility] Comment on above: Performed By: #### U MICRO, UACSIND #### [facility] [address] [place] [address] Dr. Dariel Silverman Ketones Ql (U) Negative Normal NEGATIVE [facility] Comment on above: Performed By: #### U MICRO, UACSIND #### [facility] [address] [place] [address] Dr. Dariel Silverman LEUKOCYTES TRACE Abnormal NEGATIVE [facility] Comment on above: Performed By: #### U MICRO, UACSIND #### [facility] [address] [place] [address] Dr. Dariel Silverman Nitrite Ql (U) Negative Normal NEGATIVE [facility] Comment on above: Performed By: #### U MICRO, UACSIND #### [facility] [address] [place] [address] Dr. Dariel Silverman pH (U) 6.0 [pH] Normal 5-9 [facility] Comment on above: Performed By: #### U MICRO, UACSIND #### [facility] [address] [place] [address] Dr. Dariel Silverman SPEC GRAVITY 1.010 Normal 1.005-<=1.02 5 [facility] Comment on above: Performed By: #### U MICRO, UACSIND #### [facility] [address] [address] [address] Dariel Silverman UA PROTEIN Negative Normal NEGATIVE/ TRACE [facility] Comment on above: Performed By: #### U MICRO, UACSIND #### [facility] [address] [place] [address] Dr. Dariel Silverman UR MICRO IND INDICATED Normal [facility] Comment on above: Performed By: #### U MICRO, UACSIND #### [facility] [address] [address] [address] Dariel Silverman Urobilinogen Qn (U) 0.2 {Ladonna'U}/dL Normal 0.2 - 1. 0 [facility] Comment on above: Performed By: #### U MICRO, UACSIND #### [facility] [address] [place] [address] Dr. Dariel Silverman URINE MICROSCOPIC ONLYon BACTERIA NONE SEEN Normal NONE SEEN [facility] Comment on above: Performed By: #### U MICRO, UACSIND #### [facility] [address] [place] [address] Dr. Dariel Silverman Bacteria identified Cx Nom (U) INDICATED Normal [facility] Comment on above: Performed By: #### U MICRO, UACSIND #### [facility] [address] [place] [address] Dr. Dariel Silverman CAST NONE SEEN Normal NONE SEEN [facility] Comment on above: Performed By: #### U MICRO, UACSIND #### [facility] [address] [address] [address] Dariel Silverman Crystals LM Nom (Urine sed) NONE SEEN Normal NONE SEEN [facility] Comment on above: Performed By: #### U MICRO, UACSIND #### [facility] [address] [place] [address] Dr. Dariel Silverman Epithelial cells LM Ql (Urine sed) FEW Abnormal NONE SEEN /RARE [facility] Comment on above: Performed By: #### U MICRO, UACSIND #### [facility] [address] [place] [address] Dr. Dariel Silverman MUCOUS NONE SEEN Normal NONE SEEN [facility] Comment on above: Performed By: #### U MICRO, UACSIND #### [facility] [address] [place] [address] Dr. Dariel Silverman RBC NONE SEEN Abnormal 0-2 [facility] Comment on above: Performed By: #### U MICRO, UACSIND #### [facility] [address] [place] [address] Dr. Dariel Silverman WBC 2-5 Abnormal NONE SEEN [facility] Comment on above: Performed By: #### U MICRO, UACSIND #### [facility] [address] [place] [address] Dr. Dariel Silverman RHOGAMon 06-03-2021 RHOGAM Status Information Issued Quantity 1 Product ID Rh Immune Globulin Lot Number [id number] Issue Date/Time [id number] Normal [facility] Comment on above: Performed By: #### R HOG #### [facility] [address] [place] [address] Dr. Dariel Silverman TYPE AND SCREENon 06-02-2021 TYPE AND SCREEN Negative Normal [facility] Comment on above: Performed By: #### U MICRO, UACSIND #### [facility] [address] [place] [address] Dr. Dariel Silverman CULTURE URINEon 05-28-2021 CULTURE URINE Culture Observations : LIGHT GROWTH OF MIXED GENITAL SURJIT. NO POTENTIAL PATHOGENS SEEN. Normal [facility] Comment on above: Performed By: #### U MICRO, UACSIND #### [facility] [address] [place] [address] Dr. Dariel Silverman UA (CLEAN/CATCH) CERTIFIED ORTHOTIST/MICRO I F IND.on 05-28-2021 Bilirubin Ql (U) Negative Normal NEGATIVE [facility] Comment on above: Performed By: #### U MICRO, UACSIND #### [facility] [address] [place] [address] Dr. Dariel Silverman Clarity (U) SL CLOUDY Abnormal CLEAR [facility] Comment on above: Performed By: #### U MICRO, UACSIND #### [facility] [address] [place] [address] Dr. Dariel Silverman Color (U) YELLOW Normal YELLOW [facility] Comment on above: Performed By: #### U MICRO, UACSIND #### [facility] [address] [address] [address] Dariel Silverman Glucose Ql (U) Negative Normal NEGATIVE [facility] Comment on above: Performed By: #### U MICRO, UACSIND #### [facility] [address] [address] [address] Dariel Silverman Hemoglobin Ql (U) Negative Normal NEGATIVE [facility] Comment on above: Performed By: #### U MICRO, UACSIND #### [facility] [address] [address] [address] Dariel Silverman Ketones Ql (U) TRACE Abnormal NEGATIVE [facility] Comment on above: Performed By: #### U MICRO, UACSIND #### [facility] [address] [place] [address] Dr. Dariel Silverman LEUKOCYTES TRACE Abnormal NEGATIVE [facility] Comment on above: Performed By: #### U MICRO, UACSIND #### [facility] [address] [address] [address] Dariel Silverman Nitrite Ql (U) Negative Normal NEGATIVE [facility] Comment on above: Performed By: #### U MICRO, UACSIND #### [facility] [address] [place] [address] Dr. Dariel Silverman pH (U) 6.5 [pH] Normal 5-9 [facility] Comment on above: Performed By: #### U MICRO, UACSIND #### [facility] [address] [address] [address] Dariel Silverman SPEC GRAVITY 1.020 Normal 1.005-<=1.02 5 [facility] Comment on above: Performed By: #### U MICRO, UACSIND #### [facility] [address] [place] [address] Dr. Dariel Silverman UA PROTEIN Negative Normal NEGATIVE/ TRACE [facility] Comment on above: Performed By: #### U MICRO, UACSIND #### [facility] [address] [address] [address] Dariel Silverman UR MICRO IND INDICATED Normal [facility] Comment on above: Performed By: #### U MICRO, UACSIND #### [facility] [address] [place] [address] Dr. Dariel Silverman Urobilinogen Qn (U) 1.0 {Ladonna'U}/dL Normal 0.2 - 1. 0 [facility] Comment on above: Performed By: #### U MICRO, UACSIND #### [facility] [address] [place] [address] Dr. Dariel Silverman URINE MICROSCOPIC ONLYon BACTERIA SMALL Abnormal NONE SEEN [facility] Comment on above: Performed By: #### U MICRO, UACSIND #### [facility] [address] [place] [address] Dr. Dariel Silverman Bacteria identified Cx Nom (U) INDICATED Normal [facility] Comment on above: Performed By: #### U MICRO, UACSIND #### [facility] [address] [place] [address] Dr. Dariel Silverman CAST NONE SEEN Normal NONE SEEN [facility] Comment on above: Performed By: #### U MICRO, UACSIND #### [facility] [address] [place] [address] Dr. Dariel Silverman Crystals LM Nom (Urine sed) NONE SEEN Normal NONE SEEN [facility] Comment on above: Performed By: #### U MICRO, UACSIND #### [facility] [address] [place] [address] Dr. Dariel Silverman Epithelial cells LM Ql (Urine sed) FEW Abnormal NONE SEEN /RARE [facility] Comment on above: Performed By: #### U MICRO, UACSIND #### [facility] [address] [place] [address] Dr. Dariel Silverman MUCOUS MODERATE Abnormal NONE SEEN [facility] Comment on above: Performed By: #### U MICRO, UACSIND #### [facility] [address] [place] [address] Dr. Dariel Silverman RBC 0-2 Normal 0-2 [facility] Comment on above: Performed By: #### U MICRO, UACSIND #### [facility] [address] [address] [address] Dariel Silverman WBC 0-2 Abnormal NONE SEEN [facility] Comment on above: Performed By: #### U MICRO, UACSIND #### [facility] [address] [address] [address] Dariel Silverman GLUCOSE - 1HRon 05-27-2021 Glucose [Mass/Vol] 92 mg/dL Normal 74-106 [facility] Comment on above: Performed By: #### U MICRO, UACSIND #### [facility] [address] [place] [address] Dr. Dariel Silverman HEMOGRAM AND PLATELon 2021 Hematocrit (Bld) [Volume fraction] 33.1 % Critically low 36.0-48.0 [facility] Comment on above: Performed By: #### U MICRO, UACSIND #### [facility] [address] [address] [address] Dariel Silverman Hemoglobin (Bld) [Mass/Vol] 10.8 g/dL Critically low 12.0-16.0 [facility] Comment on above: Performed By: #### U MICRO, UACSIND #### [facility] [address] [place] [address] Dr. Dariel Silverman MCH (RBC) [Entitic mass] 29.1 pg Normal 26.7-34.0 [facility] Comment on above: Performed By: #### U MICRO, UACSIND #### [facility] [address] [place] [address] Dr. Dariel Silverman MCHC (RBC) [Mass/Vol] 32.6 g/dL Normal 29.9-35.2 [facility] Comment on above: Performed By: #### U MICRO, UACSIND #### [facility] [address] [place] [address] Dr. Dariel Silverman MCV (RBC) [Entitic vol] 89.2 fL Normal 81.0-99.0 [facility] Comment on above: Performed By: #### U MICRO, UACSIND #### [facility] [address] [address] [address] Dariel Silverman PLT 252 103/ul Normal 150-450 [facility] Comment on above: Performed By: #### U MICRO, UACSIND #### [facility] [address] [address] [address] Dariel Silverman RBC 3.71 106/ul Critically low 4.20-5.40 [facility] Comment on above: Performed By: #### U MICRO, UACSIND #### [facility] [address] [address] [address] Dariel Silverman WBC 11.8 103/ul Critically high 4.0-11.0 [facility] Comment on above: Performed By: #### U MICRO, UACSIND #### [facility] [address] [address] [address] Dariel Silverman PAP ACOG PANEL 2: 20 to 28on 04-27-2021 . . Normal [facility] Comment on above: Performed By: #### U MICRO, UACSIND #### [facility] [address] [address] [address] Dariel Silverman Age Gdln ACOG Testing - Normal [facility] Comment on above: Performed By: #### U MICRO, UACSIND #### [facility] [address] [address] [address] Dariel Silverman DIAGNOSIS: Comment Abnormal [facility] Comment on above: Result Comment: EPIT HELIAL CELL ABNORMALITY. ATYPICAL SQUAMOUS CELLS OF UNDETERMINED SIGNIFICANCE (ASC-US). Performed By: #### U MICRO, UACSIND #### [facility] [address] [address] [address] Dariel Silverman Electronically signed by: Comment Normal [facility] Comment on above: Result Comment: Fabi Lira MD, Pathologist Performed By: #### U MICRO, UACSIND #### [facility] [address] [address] [address] Dariel Silverman HPV Aptima Positive Abnormal Negative [facility] Comment on above: Result Comment: This nucleic acid amplification test detects fourteen high-risk HPV types (16,18,31,33,35,39,45,51,52,56,58,59,66,68) without differentiation. Performed By: #### U MICRO, UACSIND #### [facility] [address] [address] [address] Dariel Silverman Methodology: Comment Normal [facility] Comment on above: Result Comment: This liquid based ThinPrep(R) pap test was screened with the use of an image guided system. Performed By: #### U MICRO, UACSIND #### [facility] [address] [address] [address] Dariel Silverman Note: Comment Normal [facility] Comment on above: Result Comment: The Pap smear is a screening test designed to aid in the detection of premalignant and malignant conditions of the uterine cervix. It is not a diagnostic procedure and should not be used as the sole means of detecting cervical cancer. Both false-positive and false-negative reports do occur. . Performed By: #### U MICRO, UACSIND #### [facility] [address] [address] [address] Dariel Silverman Pathologist Provided ICD10 Comment [facility] Comment on above: Result Comment: [id number]. [id number] Performed By: #### U MICRO, UACSIND #### [facility] [address] [address] [address] Dariel Silverman Performed by: Comment Normal [facility] Comment on above: Result Comment: Renu Gray Bottle Washer (ASCP) Performed By: #### U MICRO, UACSIND #### [facility] [address] [address] [address] Dariel Silverman Recommendation: Comment Abnormal [facility] Comment on above: Result Comment: Sugg est follow up as clinically appropriate. Performed By: #### U MICRO, UACSIND #### [facility] [address] [address] [address] Dariel Silverman Reflex Criteria: Comment Normal [facility] Comment on above: Result Comment: See below for HPV testing results. . Performed By: #### U MICRO, UACSIND #### [facility] [address] [place] [address] Dr. Dariel Silverman Specimen adequacy: Comment Normal [facility] Comment on above: Result Comment: Sati sfactory for evaluation. Endocervical and/or squamous metaplastic cells (endocervical component) are present. Performed By: #### U MICRO, UACSIND #### [facility] [address] [address] [address] Dariel Silverman US PREG ANATOMY SINGLEon US PREG ANATOMY SINGLE EXAMINATION: US P REG ANATOMY SINGLE HISTORY: anatomy study COMPARISON: No [...] by ultrasound, 19% by expected EDC; FL/AC: 0.214473 FL/BPD: 0.822463 HC/AC: 1.821752 GESTATIONAL AGE: Age by EDC: 22 weeks 5 days TRACIE by EDC: 08/20/2021 Age by current US: 21 weeks 4 days TRACIE by current US: 08/28/2021 IMPRESSION: Normal anatomy scan *Reference: [employer] Practice Guideline for the performance of Obstetric Ultrasound Examinations, December 05, 2006. Electronically authenticated by: BONNIE MORGAN Date: 2021-04-21 16:22 Normal [facility] Vital Signs Date Time Vital Sign Value Performing Clinician Facility 04-06-2023 12:56-0500 Diastolic blood pressure 68 mm[Hg] Huang FLORES [facility] 04-06-2023 12:56-0500 Heart rate 92 /min Huang FLORES [facility] 04-06-2023 12:56-0500 SaO2% (BldA) [Mass fraction] 98 % Huang FLORES [facility] 04-06-2023 12:56-0500 Systolic blood pressure 118 mm[Hg] Huang FLORES [facility] 03-30-2023 11:39-0500 Diastolic blood pressure 70 mm[Hg] MD Urvashi Medina Work Phone: [facility] 03-30-2023 11:39-0500 Heart rate 83 /min MD Urvashi Medina Work Phone: [facility] 03-30-2023 11:39-0500 Systolic blood pressure 102 mm[Hg] MD Urvashi Medina Work Phone: [facility] 03-30-2023 11:20-0500 SaO2% (BldA) [Mass fraction] 100 % MD Urvashi Medina Work Phone: [facility] 03-21-2023 10:03-0500 Diastolic blood pressure 70 mm[Hg] Alize Doty MD Work Phone: [facility] 03-21-2023 10:03-0500 Heart rate 80 /min Alize Doty MD Work Phone: [facility] 03-21-2023 10:03-0500 Systolic blood pressure 102 mm[Hg] Alize Doty MD Work Phone: [facility] 03-21-2023 10:01-0500 Body height 170.2 cm Alize Doty MD Work Phone: [facility] 03-21-2023 10:01-0500 Body mass index (BMI) [Ratio] 25.06 kg/m2 Alize Doty MD Work Phone: [facility] 03-21-2023 10:01-0500 Body weight 72.58 kg Alize Doty MD Work Phone: [facility] 03-16-2023 11:00-0500 Diastolic blood pressure 67 mm[Hg] Quintin Murcia [facility] 03-16-2023 11:00-0500 Heart rate 70 /min Quintin Murcia [facility] 03-16-2023 11:00-0500 Systolic blood pressure 116 mm[Hg] Quintin Murcia [facility] 03-16-2023 09:34-0500 Body temperature 97.88 [degF] Quintin Murcia [facility] 03-16-2023 09:34-0500 Diastolic blood pressure 77 mm[Hg] Quintin Murcia [facility] 03-16-2023 09:34-0500 Heart rate 76 /min Quintinchris Murcia [facility] 03-16-2023 09:34-0500 Respiratory rate 20 /min Quintin Murcia [facility] 03-16-2023 09:34-0500 SaO2% (BldA) [Mass fraction] 100 % Quintin Murcia [facility] 03-16-2023 09:34-0500 Systolic blood pressure 120 mm[Hg] Quintin Twin [facility] 02-15-2023 17:35-0500 Diastolic blood pressure 54 mm[Hg] Will Tomasa [facility] 02-15-2023 17:35-0500 Heart rate 74 /min Will Otmasa [facility] 02-15-2023 17:35-0500 Hourly Rounding Will Tomasa [facility] 02-15-2023 17:35-0500 Mean blood pressure 70 mm[Hg] Will Tomasa [facility] 02-15-2023 17:35-0500 Promise to Return Will Tomasa [facility] 02-15-2023 17:35-0500 Respiratory rate 18 /min Will Tomasa [facility] 02-15-2023 17:35-0500 SaO2% (BldA) [Mass fraction] 99 % Will Tomasa [facility] 02-15-2023 17:35-0500 Systolic blood pressure 103 mm[Hg] Will Tomasa [facility] 02-15-2023 16:35-0500 Diastolic blood pressure 56 mm[Hg] Will Tomasa [facility] 02-15-2023 16:35-0500 Heart rate 72 /min Will Tomasa [facility] 02-15-2023 16:35-0500 Hourly Rounding Will Tomasa [facility] 02-15-2023 16:35-0500 Promise to Return Will Tomasa [facility] 02-15-2023 16:35-0500 Respiratory rate 18 /min Will Tomasa [facility] 02-15-2023 16:35-0500 SaO2% (BldA) [Mass fraction] 99 % Will Tomasa [facility] 02-15-2023 16:35-0500 Systolic blood pressure 106 mm[Hg] Will Tomasa [facility] 02-15-2023 15:39-0500 Body temperature 97.7 [degF] Will Tomasa [facility] 02-15-2023 15:39-0500 Diastolic blood pressure 53 mm[Hg] Will Tomasa [facility] 02-15-2023 15:39-0500 Heart rate 76 /min Will Tomasa [facility] 02-15-2023 15:39-0500 Respiratory rate 18 /min Will Tomasa [facility] 02-15-2023 15:39-0500 SaO2% (BldA) [Mass fraction] 100 % Will Tomasa [facility] 02-15-2023 15:39-0500 Systolic blood pressure 101 mm[Hg] Will Tomasa [facility] 02-14-2023 11:39-0500 Diastolic blood pressure 60 mm[Hg] Huang FLORES [facility] 02-14-2023 11:39-0500 Heart rate 67 /min Huang FLORES [facility] 02-14-2023 11:39-0500 SaO2% (BldA) [Mass fraction] 98 % Huang FLORES [facility] 02-14-2023 11:39-0500 Systolic blood pressure 102 mm[Hg] Huang FLORES [facility] 02-10-2023 12:50-0500 Diastolic blood pressure 64 mm[Hg] Quintin Murcia [facility] 02-10-2023 12:50-0500 Heart rate 79 /min Quintin Murcia [facility] 02-10-2023 12:50-0500 Hourly Rounding Quintin Murcia [facility] 02-10-2023 12:50-0500 Mean blood pressure 79 mm[Hg] Quintin Twin [facility] 02-10-2023 12:50-0500 Promise to Return Quintinchris Murcia [facility] 02-10-2023 12:50-0500 Respiratory rate 14 /min Quintin Twin [facility] 02-10-2023 12:50-0500 SaO2% (BldA) [Mass fraction] 100 % Quintin Twin [facility] 02-10-2023 12:50-0500 Systolic blood pressure 110 mm[Hg] Quintin Twin [facility] 02-10-2023 11:52-0500 Body temperature 97.7 [degF] Quintin Murcia [facility] 02-10-2023 11:52-0500 Diastolic blood pressure 68 mm[Hg] Quintin Twin [facility] 02-10-2023 11:52-0500 Heart rate 82 /min Quintin Twin [facility] 02-10-2023 11:52-0500 Respiratory rate 14 /min Quintin Twin [facility] 02-10-2023 11:52-0500 SaO2% (BldA) [Mass fraction] 100 % Quintin Twin [facility] 02-10-2023 11:52-0500 Systolic blood pressure 108 mm[Hg] Quintin Twin [facility] 02-08-2023 10:19-0500 Blood Pressure Location Huang FLORES [facility] 02-08-2023 10:19-0500 Diastolic blood pressure 81 mm[Hg] Huang FLORES [facility] 02-08-2023 10:19-0500 Heart rate 90 /min Huang FLORES [facility] 02-08-2023 10:19-0500 SaO2% (BldA) [Mass fraction] 100 % Huang FLORES [facility] 02-08-2023 10:19-0500 Systolic blood pressure 119 mm[Hg] Huang FLORES [facility] 12-16-2022 13:58-0400 Blood Pressure Location Huang FLORES [facility] 12-16-2022 13:58-0400 Diastolic blood pressure 66 mm[Hg] Huang FLORES [facility] 12-16-2022 13:58-0400 Heart rate 57 /min Huang FLORES [facility] 12-16-2022 13:58-0400 SaO2% (BldA) [Mass fraction] 100 % Huang FLORES [facility] 12-16-2022 13:58-0400 Systolic blood pressure 108 mm[Hg] Huang FLORES [facility] 11-15-2022 10:02-0400 Blood Pressure Location Drake Genao [facility] 11-15-2022 10:02-0400 Body temperature 97.7 [degF] Drake Genao [facility] 11-15-2022 10:02-0400 Diastolic blood pressure 78 mm[Hg] Drake Genao [facility] 11-15-2022 10:02-0400 Heart rate 70 /min Drake Genao [facility] 11-15-2022 10:02-0400 SaO2% (BldA) [Mass fraction] 99 % Drake Genao [facility] 11-15-2022 10:02-0400 Systolic blood pressure 122 mm[Hg] Drake Genao [facility] 11-03-2022 09:34-0400 Blood Pressure Location GIOVANNI CHRISTOPH [facility] 11-03-2022 09:34-0400 Body temperature 97.16 [degF] GIOVANNI HAWTHORNE [facility] 11-03-2022 09:34-0400 Diastolic blood pressure 72 mm[Hg] HUNTINGTON HAWTHORNE [facility] 11-03-2022 09:34-0400 Heart rate 95 /min HUNTINGTON HAWTHORNE [facility] 11-03-2022 09:34-0400 SaO2% (BldA) [Mass fraction] 99 % HUNTINGTON HAWTHORNE [facility] 11-03-2022 09:34-0400 Systolic blood pressure 120 mm[Hg] GIOVANNI HAWTHORNE [facility] 11-02-2022 13:23-0400 Diastolic blood pressure 67 mm[Hg] Hasan AMIR [facility] 11-02-2022 13:23-0400 Heart rate 67 /min Hasan AMIR [facility] 11-02-2022 13:23-0400 Mean blood pressure 82 mm[Hg] Hasan AMIR [facility] 11-02-2022 13:23-0400 Respiratory rate 17 /min Hasan AMIR [facility] 11-02-2022 13:23-0400 Systolic blood pressure 112 mm[Hg] Hasan AMIR [facility] 11-02-2022 13:00-0400 Hourly Rounding Hasan AMIR [facility] 11-02-2022 13:00-0400 Promise to Return Hasan AMIR [facility] 11-02-2022 12:00-0400 Hourly Rounding Hasan AMIR [facility] 11-02-2022 12:00-0400 Promise to Return Hasan AMIR [facility] 11-02-2022 11:05-0400 Heart rate 67 /min Hasan AMIR [facility] 11-02-2022 11:05-0400 SaO2% (BldA) [Mass fraction] 98 % Hasan AMIR [facility] 11-02-2022 11:04-0400 Body temperature 98.06 [degF] Hasan AMIR [facility] 11-02-2022 11:04-0400 Diastolic blood pressure 67 mm[Hg] Hasan AMIR [facility] 11-02-2022 11:04-0400 Mean blood pressure 82 mm[Hg] Hasan AMIR [facility] 11-02-2022 11:04-0400 Systolic blood pressure 112 mm[Hg] Hasan AMIR [facility] 11-02-2022 11:00-0400 Hourly Rounding Hasan AMIR [facility] 11-02-2022 11:00-0400 Promise to Return Hasan AMIR [facility] 11-02-2022 08:11-0400 SaO2% (BldA) [Mass fraction] 99 % Hasan AMIR [facility] 11-02-2022 06:17-0400 Heart rate 64 /min Hasan AMIR [facility] 11-02-2022 06:17-0400 SaO2% (BldA) [Mass fraction] 99 % Hasan AMIR [facility] 11-02-2022 06:17-0400 Respiratory rate 14 /min Hasan AMIR [facility] 11-02-2022 06:16-0400 Body temperature 97.7 [degF] Hasan AMIR [facility] 11-02-2022 06:16-0400 Diastolic blood pressure 65 mm[Hg] Hasan AMIR [facility] 11-02-2022 06:16-0400 Mean blood pressure 78 mm[Hg] Hasan AMIR [facility] 11-02-2022 06:16-0400 Systolic blood pressure 103 mm[Hg] Hasan AMIR [facility] 11-02-2022 01:44-0400 Heart rate 70 /min Hasan AMIR [facility] 11-02-2022 01:44-0400 Mean blood pressure 81 mm[Hg] Hasan AMIR [facility] 11-02-2022 01:44-0400 Respiratory rate 18 /min Hasan AMIR [facility] 11-02-2022 00:00-0400 Body temperature 96.8 [degF] Hasan AMIR [facility] 11-02-2022 00:00-0400 Heart rate 63 /min Hasan AMIR [facility] 11-02-2022 00:00-0400 Mean blood pressure 88 mm[Hg] Hasan AMIR [facility] 11-01-2022 19:57-0400 Mean blood pressure 80 mm[Hg] Hasan AMIR [facility] 11-01-2022 18:55-0400 Body temperature 98.06 [degF] Hasan AMIR [facility] 11-01-2022 18:43-0400 Body temperature 97.7 [degF] Hasan AMIR [facility] 11-01-2022 18:05-0400 Blood Pressure Location Hasan AMIR [facility] 11-01-2022 18:05-0400 Body temperature 97.7 [degF] Hasan AMIR [facility] 11-01-2022 18:05-0400 Heart rate 57 /min Hasan AMIR [facility] 11-01-2022 13:35-0400 Body temperature 97.88 [degF] Hasan AMIR [facility] 09-28-2022 23:52-0400 Body temperature 97.52 [degF] Kaylinn Dokken [facility] 09-28-2022 23:52-0400 Diastolic blood pressure 69 mm[Hg] Kaylinn Dokken [facility] 09-28-2022 23:52-0400 Heart rate 75 /min Kaylinn Dokken [facility] 09-28-2022 23:52-0400 Respiratory rate 15 /min Mainorylinn Dokken [facility] 09-28-2022 23:52-0400 SaO2% (BldA) [Mass fraction] 99 % Mainorylinn Dokken [facility] 09-28-2022 23:52-0400 Systolic blood pressure 100 mm[Hg] Kaylinn Dokken [facility] 07-02-2022 11:23-0400 Blood Pressure Location KATELYN SIDELL [facility] 07-02-2022 11:23-0400 Body temperature 98.06 [degF] KATELYN SIDELL [facility] 07-02-2022 11:23-0400 Diastolic blood pressure 62 mm[Hg] KATELYN SIDELL [facility] 07-02-2022 11:23-0400 Heart rate 58 /min KATELYN SIDELL [facility] 07-02-2022 11:23-0400 SaO2% (BldA) [Mass fraction] 100 % KATELYN SIDELL [facility] 07-02-2022 11:23-0400 Systolic blood pressure 110 mm[Hg] KATELYN SIDELL [facility] 05-11-2022 23:58-0500 Heart rate 75 /min Quintin Twin [facility] 05-11-2022 23:58-0500 Hourly Rounding Quintin Murcia [facility] 05-11-2022 23:58-0500 Respiratory rate 16 /min Quintin Twin [facility] 05-11-2022 23:58-0500 SaO2% (BldA) [Mass fraction] 99 % Quintin Twin [facility] 05-11-2022 22:08-0500 Diastolic blood pressure 67 mm[Hg] Quintin Twin [facility] 05-11-2022 22:08-0500 Heart rate 67 /min Quintin Twin [facility] 05-11-2022 22:08-0500 Hourly Rounding Quintin Murcia [facility] 05-11-2022 22:08-0500 Mean blood pressure 82 mm[Hg] Quintin Murcia [facility] 05-11-2022 22:08-0500 Respiratory rate 16 /min Quintin Murcia [facility] 05-11-2022 22:08-0500 SaO2% (BldA) [Mass fraction] 98 % Quintin Murcia [facility] 05-11-2022 22:08-0500 Systolic blood pressure 113 mm[Hg] Quintin Twin [facility] 05-11-2022 21:05-0500 Body temperature 97.52 [degF] Quintin Murcia [facility] 05-11-2022 21:05-0500 Diastolic blood pressure 70 mm[Hg] Quintin Twin [facility] 05-11-2022 21:05-0500 Heart rate 73 /min Quintin Twin [facility] 05-11-2022 21:05-0500 Hourly Rounding Quintin Murcia [facility] 05-11-2022 21:05-0500 Respiratory rate 20 /min Quintin Twin [facility] 05-11-2022 21:05-0500 SaO2% (BldA) [Mass fraction] 100 % Quintin Twin [facility] 05-11-2022 21:05-0500 Systolic blood pressure 109 mm[Hg] Quintin Twin [facility] 04-20-2022 15:16-0500 Blood Pressure Location KATELYN SIDELL [facility] 04-20-2022 15:16-0500 Body temperature 98.06 [degF] KATELYN SIDELL [facility] 04-20-2022 15:16-0500 Diastolic blood pressure 70 mm[Hg] KATELYN SIDELL [facility] 04-20-2022 15:16-0500 Heart rate 83 /min KATELYN SIDELL [facility] 04-20-2022 15:16-0500 SaO2% (BldA) [Mass fraction] 99 % KATELYN SIDELL [facility] 04-20-2022 15:16-0500 Systolic blood pressure 104 mm[Hg] KATELYN SIDELL [facility] 03-05-2022 00:00-0500 Body temperature 98.24 [degF] Quintin Twin [facility] 03-05-2022 00:00-0500 Diastolic blood pressure 88 mm[Hg] Quintin Twin [facility] 03-05-2022 00:00-0500 Heart rate 78 /min Quintin Twin [facility] 03-05-2022 00:00-0500 Mean blood pressure 99 mm[Hg] Quintin Twin [facility] 03-05-2022 00:00-0500 Respiratory rate 18 /min Quintin Twin [facility] 03-05-2022 00:00-0500 SaO2% (BldA) [Mass fraction] 97 % Quintin Twin [facility] 03-05-2022 00:00-0500 Systolic blood pressure 120 mm[Hg] Quintin Twin [facility] 03-04-2022 23:00-0500 Diastolic blood pressure 67 mm[Hg] Quintin Twin [facility] 03-04-2022 23:00-0500 Heart rate 75 /min Quintin Twin [facility] 03-04-2022 23:00-0500 Mean blood pressure 86 mm[Hg] Quintin Twin [facility] 03-04-2022 23:00-0500 Respiratory rate 17 /min Quintin Twin [facility] 03-04-2022 23:00-0500 SaO2% (BldA) [Mass fraction] 98 % Quintin Twin [facility] 03-04-2022 23:00-0500 Systolic blood pressure 123 mm[Hg] Quintin Twin [facility] 03-04-2022 22:00-0500 Body temperature 97.7 [degF] Quintin Twin [facility] 03-04-2022 22:00-0500 Mean blood pressure 100 mm[Hg] Quintin Twin [facility] 03-04-2022 22:00-0500 Systolic blood pressure 125 mm[Hg] Quintin Twin [facility] 01-06-2022 10:15-0400 Body temperature 98.24 [degF] Quintin Twin [facility] 01-06-2022 10:15-0400 Diastolic blood pressure 84 mm[Hg] Quintin Twin [facility] 01-06-2022 10:15-0400 Heart rate 87 /min Quintin Twin [facility] 01-06-2022 10:15-0400 Respiratory rate 18 /min Quintin Twin [facility] 01-06-2022 10:15-0400 SaO2% (BldA) [Mass fraction] 98 % Quintin Murcia [facility] 01-06-2022 10:15-0400 Systolic blood pressure 126 mm[Hg] Quintin Twin [facility] 09-13-2021 12:16-0400 Body temperature 98.24 [degF] Quintin Murcai [facility] 09-13-2021 12:16-0400 Diastolic blood pressure 72 mm[Hg] Quintin Twin [facility] 09-13-2021 12:16-0400 Heart rate 70 /min Quintin Twin [facility] 09-13-2021 12:16-0400 Respiratory rate 18 /min Quintin Twin [facility] 09-13-2021 12:16-0400 SaO2% (BldA) [Mass fraction] 100 % Quintin Twin [facility] 09-13-2021 12:16-0400 Systolic blood pressure 116 mm[Hg] Quintin Twin [facility] Encounters Encounter Date Encounter Type Care Provider Facility Start: 05-18-2023 End: 05-19-2023 ambulatory Will L Tomasa Facility:[facility] Start: 04-26-2023 End: 04-26-2023 ambulatory Jesse Crystal Facility:[facility] Start: 04-26-2023 End: 04-26-2023 ambulatory MD Urvashi Medina Work Phone: [facility] Work Phone: Start: 04-26-2023 End: 04-26-2023 Departed Referred MD Urvashi Medina Work Phone: [facility] Start: 04-25-2023 End: 04-25-2023 ambulatory JESSE CRYSTAL Not Available Start: 04-19-2023 End: 04-20-2023 ambulatory Will L Tomasa Facility:[facility] Start: 04-06-2023 End: 04-07-2023 ambulatory Huang FLORES Facility:[facility] Start: 04-06-2023 End: 04-06-2023 Patient encounter procedure Huang FLORES [facility] Start: 04-04-2023 End: 04-05-2023 ambulatory William Badillo Facility:[facility] Start: 04-04-2023 End: 04-04-2023 ambulatory JESSE CRYSTAL Not Available Start: 03-30-2023 End: 03-30-2023 ambulatory Alize Doty Facility:[facility] Start: 03-30-2023 End: 03-30-2023 ambulatory MD Urvashi Medina Work Phone: [facility] Work Phone: Start: 03-30-2023 End: 03-30-2023 Patient encounter procedure MD Urvashi Medina Work Phone: [facility]-Electrodiagnostic s Work Phone: Start: 03-21-2023 End: 03-21-2023 ambulatory [facility] Start: 03-21-2023 End: 03-21-2023 Encounter for other preprocedural examination [facility] Start: 03-21-2023 End: 03-21-2023 Office outpatient new 45 minutes Alize Doty MD Work Phone: [facility] Comment on above: Orthostatic hypotens ion (Primary Dx); Chest pain, unspecified type; Palpitations; Pre-op testing Start: 03-21-2023 End: 03-21-2023 Patient encounter status Alize Doty MD Work Phone: [facility] Work Phone: Start: 03-16-2023 End: 03-16-2023 Emergency department patient visit Quintin Murcia Facility:[facility] Start: 03-16-2023 End: 03-16-2023 Emergency department patient visit Quintin Murcia [facility] Start: 02-25-2023 End: 02-26-2023 ambulatory Will L Tomasa Facility:[facility] Start: 02-25-2023 End: 02-25-2023 Patient encounter procedure Wlil L Tomasa [facility] Start: 02-23-2023 End: 02-24-2023 ambulatory Will L Tomasa Facility: [facility] Start: 02-21-2023 End: 02-22-2023 ambulatory Will L Tomasa Facility:[facility] [place] Start: 02-15-2023 End: 02-15-2023 Emergency department patient visit Nicolas Izquierdo Facility:[facility] Start: 02-15-2023 End: 02-15-2023 Emergency department patient visit Will Tomasa [facility] Start: 02-14-2023 End: 02-15-2023 ambulatory Huang FLORES Facility:[facility] Start: 02-14-2023 End: 02-14-2023 Patient encounter procedure Huang FLORES [facility] Start: 02-10-2023 End: 02-10-2023 Emergency department patient visit Quintin Murcia Facility:[facility] Start: 02-10-2023 End: 02-10-2023 Emergency department patient visit Quintin Murcia [facility] Start: 02-03-2023 End: 02-03-2023 ambulatory JESSE ENRIQUEO Not Available Start: 01-26-2023 End: 01-27-2023 ambulatory Will L Tomasa Facility:[facility] Start: 01-14-2023 End: 01-15-2023 ambulatory Will L Tomasa Facility:[facility] Start: 01-14-2023 End: 01-14-2023 Patient encounter procedure Will L Tomasa [facility] Start: 01-13-2023 ambulatory PHYSICIAN NO FAMILY Fac ility:[facility] Start: 01-03-2023 End: 01-04-2023 ambulatory Huang FLORES Facility:[facility] Start: 12-29-2022 End: 12-30-2022 ambulatory Will L Tomasa Facility:[facility] Start: 12-16-2022 End: 12-17-2022 ambulatory Huang FLORES Facility:[facility] Start: 12-16-2022 End: 12-22-2022 Pre-admission assessment Huang FLORES [facility] Start: 12-16-2022 End: 12-16-2022 Patient encounter procedure Huang FLORES [facility] Start: 12-16-2022 End: 12-17-2022 ambulatory Will L Tomasa Facility:[facility] Start: 12-16-2022 End: 12-16-2022 Patient encounter procedure Will L Tomasa [facility] Start: 12-01-2022 End: 12-01-2022 Emergency department patient visit Winnie Paula Facility:[facility] Start: 11-24-2022 End: 11-25-2022 ambulatory Will L Tomasa Facility:[facility] Start: 11-24-2022 End: 11-24-2022 Patient encounter procedure Will L Tomasa [facility] Start: 11-19-2022 End: 11-20-2022 ambulatory Will L Tomasa Facility:[facility] Start: 11-16-2022 End: 11-17-2022 ambulatory Drake Genao Facility:[facility] Start: 11-16-2022 End: 11-16-2022 Patient encounter procedure Drake Genao [facility] Start: 11-15-2022 End: 11-16-2022 ambulatory Drake Genao Facility:[facility] Start: 11-15-2022 End: 11-16-2022 ambulatory Drake Genao Facility:[facility] Start: 11-15-2022 End: 11-15-2022 Lab Drop off Drake Genao [facility] Start: 11-15-2022 End: 11-15-2022 Patient encounter procedure Drake Genao [facility] Start: 11-09-2022 End: 11-10-2022 ambulatory Will L Tomasa Facility:[facility] Start: 11-04-2022 ambulatory Winnie Paula Facility :[facility] Start: 11-03-2022 End: 12-13-2022 ambulatory Will L Tomasa Facility:CD:[id number] Start: 11-03-2022 End: 11-04-2022 ambulatory GIOVANNI HAWTHORNE Facility:[facility] Start: 11-03-2022 End: 11-03-2022 Patient encounter procedure GIOVANNI TOMLINTIZ [facility] Start: 11-01-2022 End: 11-02-2022 ambulatory Wilbert Viveros Facility:[facility] Start: 11-01-2022 End: 11-02-2022 Observation Juan RODAS [facility] Start: 09-29-2022 End: 09-29-2022 Emergency department patient visit Winnie Paula Facility:[facility] Start: 09-28-2022 End: 09-29-2022 Emergency department patient visit Patrickcojosefina Paula [facility] Start: 07-02-2022 End: 07-03-2022 ambulatory KATELYN W SIDELL Facility:[facility] Start: 07-02-2022 End: 07-02-2022 Patient encounter procedure KATELYN W SIDELL [facility] Start: 06-22-2022 End: 06-23-2022 ambulatory KATELYN W SIDELL Facility:[facility] Start: 06-16-2022 End: 06-17-2022 ambulatory KATELNY W SIDELL Facility:[facility] Start: 06-16-2022 End: 06-16-2022 Patient encounter procedure KATELYN W SIDELL [facility] Start: 05-13-2022 End: 05-13-2022 Patient encounter procedure Sheila X Orzech [facility] Start: 05-11-2022 End: 05-12-2022 Emergency department patient visit Quintin Murcia [facility] Start: 04-27-2022 End: 04-27-2022 Patient encounter procedure KATELYN ROBERTS [facility] Start: 04-20-2022 End: 04-20-2022 Patient encounter procedure KATELYN ROBERTS [facility] Start: 04-14-2022 End: 04-15-[address] Bonnie Morgan Facility:[facility] Start: 03-25-2022 End: 03-25-[address] JESSE ROJAS Facility:[facility] Start: 03-04-2022 End: 03-05-2022 Emergency department patient visit Quintin Murcia [facility] Start: 01-20-2022 End: 01-21-[address] JESSE ROJAS Facility:[facility] Start: 01-13-2022 End: 01-13-[address] JESSE ROJAS Facility:[facility] Start: 01-06-2022 End: 01-06-2022 Emergency department patient visit Quintin Murcia [facility] Start: 10-22-2021 End: 10-22-[address] JESSE ROJAS Facility:[facility] Start: 09-13-2021 End: 09-13-2021 Emergency department patient visit Quintin Murcia [facility] Start: 08-18-[address] LINDA ALAS Facility:H1 Start: 08-14-2021 End: 08-15-2021 Evaluation and management of inpatient DR ERIC ODEN Facility:H1 Start: 08-09-2021 End: 08-09-[address] JESSE ROJAS Facility:[facility]1 Start: 07-21-2021 End: 07-21-[address] JESSE ROJAS Facility:H1 Start: 06-28-2021 End: 06-28-[address] ERIC ODEN Facility:[facility]1 Start: 06-02-2021 End: 06-03-[address] JESSE ROJAS Facility:H1 Start: 05-28-2021 End: 05-28-[address] JESSE ROJAS Facility:H1 Start: 05-27-2021 End: 05-28-[address] JESSE ROJAS Facility:H1 Start: 04-21-2021 End: 04-21-[address] [...] Quintin Murcia Right Hand Surgery Quintin abel Plan of Treatment Date Care Activity Detail Author Start: 2044 Zoster Vaccines (1 of 2) Zoste r Vaccines (1 of 2) [facility] Start: 08-16-2031 DTaP/Tdap/Td Vaccine s (9 - Td or Tdap) DTaP/Tdap/Td Vaccines (9 - Td or Tdap) [facility] Start: 03-21-2023 End: 03-21-2024 Choriogonadotropin ( test) [Presence] in Urine hCG, Urine, Qualitative Lab Routine Orthostatic hypotension Pre-op testing Expected: 03/21/2023 (Approximate), Expires: 03/21/2024 [facility] Work Phone: Comment on above: Expected: 03/21/2023 (Approximate), Expires: 03/21/2024 Start: 03-21-2023 End: 03-21-2025 Tilt table study Tilt Table Cardiac Services Routine Orthostatic hypotension Expected: 03/21/2023 (Approximate), Expires: 03/21/2025 [facility] Service Area Work Phone: Comment on above: Expected: 03/21/2023 (Approximate), Expires: 03/21/2025 Start: 11-05-2022 Influenza vaccination Influenz a Vaccine (#1) [facility] Start: 12-15-2015 Screening for malign ant neoplasm of cervix [facility] Start: 2012 Hepatitis C screening Hepatitis C Sc [facility] Start: 11-17-2012 Hepatitis A Vaccines (2 of 2 - 2-dose series) Hepatitis A Vaccines (2 of 2 - 2-dose series) [facility] Start: 06-14-2012 HPV Vaccines (2 - 3- dose series) HPV Vaccines (2 - 3-dose series) [facility] Start: 06-15-1995 COVID-19 Vaccine (#1) COVID-19 Vacci ne (#1) [facility] Start: 1994 HIV screening HIV Screening [facility] Start: 1994 Lipid panel Lipid Panel [facility] Start: 1994 Yearly Adult Physical Yearly Adult P hysical [facility] Immunizations Immunization Date Immunization Notes Care Provider Fa cility 08-15-2021 diphtheria, tetanus toxoids and pertussis vaccine Alize Doty MD Work Phone: [facility] Work Phone: 01-26-2019 influenza, seasonal, injectable Quintin Murcia [facility] Comment on above: Reason for Medicatio n: Other (see comment) 01-26-2019 influenza virus vaccine, unspecified formulation Alize Doty MD Work Phone: [facility] Work Phone: 03-31-2018 influenza virus vaccine, unspecified formulation [facility] 04-08-2017 tetanus toxoid, redu bethany diphtheria toxoid, and acellular pertussis vaccine, adsorbed Quintin Murcia [facility] Comment on above: Reason for Medicatio n: Other (see comment) 04-27-2013 RHO(D) immune globul in- IV or IM Alize Doty MD Work Phone: [facility] Work Phone: 05-17-2012 hepatitis A vaccine, pediatric/adolescent dosage, 2 dose schedule Alize Doty MD Work Phone: [facility] Work Phone: 05-17-2012 hepatitis A vaccine, unspecified formulation [facility] 05-17-2012 HPV, unspecified formulation [facility] 05-17-2012 human papilloma viru s vaccine, quadrivalent Alize Doty MD Work Phone: [facility] Work Phone: 05-17-2012 meningococcal ACWY vaccine, unspecified formulation [facility] 05-17-2012 meningococcal polysaccharide (groups A, C, Y and W-135) diphtheria toxoid conjugate vaccine (MCV4P) Alize Doty MD Work Phone: [facility] Work Phone: 05-17-2012 tetanus toxoid, redu bethany diphtheria toxoid, and acellular pertussis vaccine, adsorbed [facility] 05-17-2012 varicella virus vaccine AMADO HAWTHORNE [facility] 05-17-2012 hepatitis A and hepatitis B vaccine Alize Doty MD Work Phone: [facility] Work Phone: 01-22-2009 novel [id number], preservative-free, injectable Alize Doty MD Work Phone: [facility] Work Phone: 01-12-2000 diphtheria, tetanus toxoids and acellular pertussis vaccine, unspecified formulation Alize Doty MD Work Phone: [facility] Work Phone: 01-12-2000 DTaP, unspecified formulation GIOVANNI HAWTHORNE [facility] 01-12-2000 measles, mumps and rubella virus vaccine [facility] 01-12-2000 poliovirus vaccine, unspecified formulation Alize Doty MD Work Phone: [facility] Work Phone: 01-21-1999 haemophilus influenz ae type b vaccine, PRP-T conjugate GIOVANNI HAWTHORNE [facility] 03-11-1998 varicella virus vaccine AMADO HAWTHORNE [facility] 08-10-1996 diphtheria, tetanus toxoids and acellular pertussis vaccine, unspecified formulation Alize Doty MD Work Phone: [facility] Work Phone: 08-10-1996 DTaP, unspecified formulation GIOVANNI HAWTHORNE [facility] 08-10-1996 measles, mumps and rubella virus vaccine GIOVANNI HAWTHORNE [facility] 09-29-1995 hepatitis B vaccine, adult dosage GIOVANNI HAWTHORNE [facility] 06-28-1995 DTP-Haemophilus influenzae type b conjugate vaccine Alize Doty MD Work Phone: [facility] Work Phone: 06-28-1995 DTP-Hib GIOVANNI HAWTHORNE [facility] 06-28-1995 poliovirus vaccine, unspecified formulation Alize Doty MD Work Phone: [facility] Work Phone: 05-05-1995 DTP-Haemophilus influenzae type b conjugate vaccine Alize Doty MD Work Phone: [facility] Work Phone: 05-05-1995 DTP-Hib GIOVANNI HAWTHORNE [facility] 05-03-1995 poliovirus vaccine, unspecified formulation Alize Doty MD Work Phone: [facility] Work Phone: 02-21-1995 DTP-Haemophilus influenzae type b conjugate vaccine Alize Doty MD Work Phone: [facility] Work Phone: 02-21-1995 DTP-Hib GIOVANNI HAWTHORNE [facility] 02-21-1995 poliovirus vaccine, unspecified formulation Alize Doty MD Work Phone: [facility] Work Phone: 01-14-1995 hepatitis B vaccine, adult dosage GIOVANNI HAWTHORNE [facility] 1994 hepatitis B vaccine, adult dosage GIOVANNI HAWTHORNE [facility] NEGATED: Highlighted row has not occurred!12-16-2022 influenza virus vaccine, unspecified formulation Huang FLORES [facility] NEGATED: Highlighted row has not occurred!01-05-2022 influenza virus vaccine, unspecified formulation Quintin Murcia [facility] Payers Date Payer Category Payer Self-pay 2021 Unknown [place] [facility] [id number] 2021-Present [address] [place] [address] [id number]. [id number] 1994 Unknown [id number] 2.16.840.1.764629.3.579.2.593 1994 Unknown [id number] 2.16.840.1.120951.3.579.2.593 1994 Unknown [id number] 2.16.840.1.578747.3.579.2.593 1994 Unknown [id number] 2.16.840.1.897127.3.579.2.593 1994 Unknown [id number] 2.16.840.1.626037.3.579.2.593 1994 Unknown [id number] 2.16.840.1.281209.3.579.2.593 1994 Unknown [id number] 2.16.840.1.780378.3.579.2.593 1994 Unknown [id number] 2.16.840.1.654642.3.579.2.593 1994 Unknown [id number] 2.16.840.1.819034.3.579.2.593 1994 Unknown [id number] 2.16.840.1.358584.3.579.2.593 1994 Unknown [id number] 2.16.840.1.248565.3.579.2.593 1994 Unknown [id number] 2.16.840.1.537240.3.579.2.593 1994 Unknown [id number] 2.16.840.1.316714.3.579.2.593 1994 Unknown [id number] 2.16.840.1.072091.3.579.2.593 1994 Unknown [id number] 2.16.840.1.825017.3.579.2.593 1994 Unknown [id number] 2.16.840.1.729719.3.579.2.1244 1994 Unknown [id number] 2.16.840.1.334908.3.579.2.1259 1994 Unknown [id number] 2.16.840.1.995191.3.579.2.1259 1994 Unknown [id number] 2.16.840.1.945135.3.579.2.1259 1994 Unknown [id number] 2.16.840.1.051228.3.579.2.727 1994 Unknown [id number] 2.16.840.1.130816.3.579.2.727 1994 Unknown [id number] 2.16.840.1.812441.3.579.2.727 1994 Unknown [id number] 2.16.840.1.014428.3.579.2.727 1994 Unknown [id number] 2.16.840.1.076440.3.579.2.727 1994 Unknown [id number] 2.16.840.1.765418.3.579.2.727 1994 Unknown [id number] 2.16.840.1.171355.3.579.2.727 1994 Unknown [id number] 2.16.840.1.574624.3.579.2.72 1994 Unknown [id number] 2.16.840.1.044414.3.579.2.72 1994 Unknown [id number] 2.16.840.1.293799.3.579.2. 1994 Unknown [id number] 2.16.840.1.922601.3.579.2. 1994 Unknown [id number] 2.16.840.1.299010.3.579.2. 1994 Unknown [id number] 2.16.840.1.027905.3.579.2 1994 Unknown [id number] 2.16.840.1.991964.3.579.2 1994 Unknown [id number] 2.16.840.1.069469.3.579.2 1994 Unknown [id number] 2.16.840.1.582184.3.579.2 1994 Unknown [id number] 2.16.840.1.019943.3.579.2 1994 Unknown [id number] 2.16.840.1.915988.3.579.2. 1994 Unknown [id number] 2.16.840.1.315199.3.579.2 1994 Unknown [id number] 2.16.840.1.525428.3.579.2 1994 Unknown [id number] 2.16.840.1.342367.3.579.2. 1994 Unknown [id number] 2.16.840.1.769496.3.579.2 1994 Unknown [id number] 2.16.840.1.353092.3.579.2. 1994 Unknown [id number] 2.16.840.1.395404.3.579.2.727 1994 Unknown [id number] 2.16.840.1.575311.3.579.2.727 1994 Unknown [id number] 2.16.840.1.178383.3.579.2.727 1994 Unknown [id number] 2.16.840.1.531914.3.579.2.727 1994 Unknown [id number] 2.16.840.1.762706.3.579.2.727 1994 Unknown [id number] 2.16.840.1.708348.3.579.2.727 1994 Unknown [id number] 2.16.840.1.587582.3.579.2.727 1959 Unknown [id number] 1959 Unknown [id number] Unknown [id number] 2.16.840.1.897726.3.579.2.531 Unknown [id number] 2.16.840.1.618544.3.579.2.531 Unknown [id number] 2.16.840.1.709962.3.579.2.531 Social History Date Type Detail Facility Start: 11-28-2020 End: 03-21-2023 Tobacco smoking status Ex-smoker (finding) [facility] Sex Assigned At Female [facility] Tobacco [facility] Comment on above: vapes Tobacco smoking status No Smokin g Status Entered [facility] Start: 07-02-2022 End: 11-03-2022 Tobacco smoking status Never smoked tobacco (finding) [facility]y Comment on above: vapes Tobacco smoking status Never [facility] Comment on above: vapes History of tobacco use Current smoker [facility] Work Phone: History of tobacco use Cigarette Smoker [facility] Work Phone: Start: 03-21-2023 Tobacco use and exposure User of smokeless tobacco [facility] Work Phone: Start: 03-21-2023 Alcohol intake Lifetime non-d celeste (finding) [facility] Work Phone: Start: 1994 [facility] Start: 03-11-2023 End: 03-21-2023 Exposure to SARS-CoV-2 (event) Not sure [facility] Start: 1994 Sex Assigned At Female [facility] Functional Status Date Assessment Result Facility 04-06-2023 Functional Status N/A [facility] 03-16-2023 Functional Status N/A [facility] 02-15-2023 Functional Status N/A [facility] 02-14-2023 Functional Status No [facility] 02-10-2023 Functional Status N/A [facility] 02-08-2023 Functional Status [facility] 12-16-2022 Functional Status No [facility] 11-15-2022 Functional Status N/A [facility] 11-03-2022 Functional Status N/A [facility] 11-01-2022 Functional Status No [facility] 11-01-2022 Functional Status [facility] 09-28-2022 Functional Status N/A [facility] 07-02-2022 Functional Status N/A [facility] 05-11-2022 Functional Status N/A [facility] 04-20-2022 Functional Status N/A [facility] 03-04-2022 Functional Status N/A [facility] 01-06-2022 Functional Status Yes [facility] 09-13-2021 Functional Status N/A [facility] Clinical Notes 09-13-2021 to 05-18-2023 Alize Doty MD - 03/21/2023 9:15 AM ESTPatient Instructions Note Date & Type Note Facility 05-18-2023 Note HPI Staff This visit was conducted via two-way, real-time interactive video communications by Will Mora from my office using [employer]. The patient was located at their home, located at [address] [place] [address] [phone], with _ in attendance. A signed authorization for treatment has been obtained via our standard authorization packet or by verbal consent by the patient or their legal customer field representative. The patient's identity and location in [place] has been verified by our office staff. If it is determined that the patient should be evaluated in the clinic, the patient will be directed to the appropriate clinic or venue. A limited physical exam will be conducted reviewing those areas of the body visible via telecommunications. Total time spent preparing the chart, conducting the encounter with the patient and family, and time spent documenting, reviewing, and ordering tests was 30 minutes. All records and visits comply with HIPAA standards. Patient or Guardian reported vitals: Temp: _ Wt: _ Ht: _ BP: _ HR: _ Sp02: _ Follow up for Mental Status: NAVIN 04/19/23 started Prozac JULIA 15 Medication adherence- Yes, takes medication as prescribed Medication refill needed: Suicidal thoughts-Not at this time Most recent JULIA: 10 pt she does feel her mood has improved a lot , pt would like to discuss increasing medication pt wanted to know since she is done with the 30 days halter monitor if this an echo can be ordered by your or if that needs to come from cardiology. Pt states she called rajesh ledesma today to see about get appointment up with Dr Crum. History of Present Illness pt presents via video visit for follow up on anxiety/depression was restarted on prozac at last visit Physical Exam unable to perform exam Assessment/Plan 1. Anxiety (F41.9: Anxiety disorder, unspecified) JULIA is much improved. will increase dose to 20mg. all questions answered. RTC 3 months for follow up. Ordered: TELEHEALTH Office Visit Level 3 Est 58618 2. Bipolar 1 disorder, mixed, moderate (F31.62: Bipolar disorder, current episode mixed, moderate) see above Ordered: TELEHEALTH Office Visit Level 3 Est 45793 3. Depression (F32.9: Major depressive disorder, single episode, unspecified) see above Ordered: TELEHEALTH Office Visit Level 3 Est 36154 4. Chest pain (R07.9: Chest pain, unspecified) pt continues having chest pain. was seen by Dr. Flores but has made several calls to get back into Dr. Crum to go over halter monitor results and her concern of continued chest pain. was told her insurance did not cover echo. pt is requesting that echo be ordered again. if they will ot cover it, her family is willing to pay out of packet for her to have it. Ordered: Echo Transthoracic Complete TELEHEALTH Office Visit Level 3 Est 98666 5. Premature atrial complexes (I49.1: Atrial premature depolarization) see above Ordered: Echo Transthoracic Complete TELEHEALTH Office Visit Level 3 Est 19886 Orders: fluoxetine, 20 mg = 1 tab(s), Oral, Daily, # 90 tab(s), Refills(s) 0, Pharmacy: [facility]/pharmacy #[id number], 170, cm, 04/19/23 9:01:00 EST, Height/Length Dosing, 74, kg, 04/19/23 9:01:00 EST, Weight Dosing fluoxetine, 10 mg = 1 cap(s), Oral, Daily, # 30 cap(s), Refills(s) 1, Pharmacy: [facility]/pharmacy #[id number], 170, cm, 04/19/23 9:01:00 EST, Height/Length Dosing, 74, kg, 04/19/23 9:01:00 EST, Weight Dosing Follow-up No qualifying data available Problem List/Past Medical History Ongoing Abdominal pain Abnormal EKG Amenorrhea, secondary Anxiety Bacterial conjunctivitis of right eye Bipolar 1 disorder, mixed, moderate Bipolar disorder Cellulitis, leg Cervical sprain Cervical strain Chest pain Chronic abdominal pain Depression Ear pain, left Heart palpitations Left testicular pain Migraines Neck muscle strain Pelvic pain Peroneal neuritis Premature atrial complexes PTSD (post-traumatic stress disorder) Right hand pain Right upper quadrant pain Screening for cardiovascular condition Screening for thyroid disorder Smoker Urinary incontinence Vulvovaginitis Historical Depression Laceration of kidney without open wound into abdominal cavity orthostatic fainting Pseudoseizures Suicidal ideation Procedure/Surgical History Betamethasone (02/01/2017), Betamethasone (01/31/2017), lacerated Kidney (2007), Right Hand Surgery. Medications Ativan 0.5 mg Tab, 0.25 mg= 0.5 tab(s), Oral, Once, PRN fluoxetine 20 mg oral tablet, 20 mg= 1 tab(s), Oral, Daily SUMAtriptan 50 mg Tab, 50 mg= 1 tab(s), Oral, PRN Allergies clindamycin (Hives) Social History Alcohol - Denies Alcohol Use, 04/26/2019 Current, Beer, Wine, 1-2 times per month, Household alcohol concerns: No., 04/15/2020 Employment/School - Not employed or in school, 01/31/2017 Exercise - Occasional exercise, 06/15/2013 Home/Environment - No Risk, 02/07/2017 Nutrition/Health - Lo (more content not included)... [facility] Comment on above: Result Comment: Elec tronically Signed By: Will Mora\.br\Date and Time Signed: 05/18/23 16:35 EDT 03-22-2023 Note PROCEDURE: 14-day ev ent monitor REFERRING PRACTITIONER: DEIDRA Bautista INDICATIONS: Palpitations. PROCEDURE DETAILS: The patient was recorded from 02/25/2023 to 03/13/2023 which was 17 days. The patient had predominant rhythm of sinus rhythm or sinus tachycardia. She had a minimum heart rate of 73 beats per minute, average heart rate of 110 beats per minute, maximum heart rate of 148 beats per minute. The patient events were palpitations, shortness of breath, chest pain or pressure which corresponded with sinus rhythm with supraventricular ectopy. CONCLUSIONS: Abnormal event monitor for elevated average heart rate as well as multiple symptomatic events of supraventricular ectopy. Clinical correlation suggested. READ BY: Minerva Garcia Dictated: 03/19/2023 [id number] Transcribed: 03/21/2023 cc:CODY Johnson [facility] Comment on above: Result Comment: Elec tronically Signed By: Hernandez Crum MD\.br\Date and Time Signed: 03/22/23 10:12 EST 03-21-2023 Note Normal sinus rhythm at 66 bpm, SC interval 196 ms QRS duration 96 ms QTc 429 ms abnormal R wave progression, etiology unclear, possibly related to lead placement? Not suspecting anterior wall myocardial infarction An EKG from March 2023 showed R wave progression. [facility] 03-21-2023 History of Present illness Narrative Referred [...] headaches 2-3 times a week Works at [employer] Mother of 4 children, youngest 1-1/2 years [...] left side, awaiting further discussion Works at [employer] to stay hydrated 12 point review of systems is negative or noncontributory except as noted Orthostatic in office 122/64 sitting 102/70 standing heart rate goes from 66-80 Past Medical History: She has no past medical history on file. Past Surgical History: She has a past surgical history that includes Hand surgery (Right) and [place] tooth extraction. Social History: She reports that [...] Attestation By signing my name below, I, Rowena Russell LPN , Bo attest that this documentation has been prepared under the direction and in the presence of Alize Doty MD. documented in this encounter [facility] Work Phone: 03-21-2023 Instructions Rowena Beard [...] of your visit. documented in this encounter [facility] Work Phone: 03-16-2023 Hospital Discharge instructions [...] Follow these instructions at home: Medicines Take jtwr-kai-mqvkgmz and prescription medicines only as told by [...] provider. Document Revised: 05/07/2021 Document Reviewed: 05/07/2021 [employer] Patient Education 2022 [employer]. Follow Up Care 03/16/2023 09:32:20 With:Huang FLORES Address: [address] [place] [address]- [phone] Business (1) When:03/19/2023 13:24:05 Comments:Keep your upcoming [...] legs, or any new or worsening symptoms. [facility] 03-16-2023 Evaluation + Plan note Extrac fanta [...] Scheduled Tests Radiology* Echo Transthoracic Complete 12/16/22 [facility]12-12-2023 Hospital Discharge instructions Patient Education 02/15/2023 18:24:56 [...] 200 mg of potassium per serving. Fruits [place] 1 medium (130 g) has 230 mg [...] provider. Document Revised: 11/24/2021 Document Reviewed: 11/05/2021 [employer] Patient Education 2022 [employer]. 02/15/2023 18:24:53 Hypokalemia Hypokalemia Hypokalemia means that [...] products, such as yogurt. General instructions Take fvmv-nhw-cedvyil and prescription medicines only as told by [...] provider. Document Revised: 11/05/2021 Document Reviewed: 11/05/2021 [employer] Patient Education 2022 [employer]. 02/15/2023 18:24:51 Diarrhea, Adult, Ajxp-lw-Oidx Diarrhea, Adult Diarrhea is when you pass [...] sugar or caffeine in them. Eat bland, zsqr-nc-kaukum foods in small amounts as you are able. These foods include: ?Bananas. ?Applesauce. ?Rice. ?Low-fat (lean) meats. ?[place]. ?Crackers. Avoid alcohol. Avoid spicy or fatty foods. Medicines Take dkft-txt-kahbzaq and prescription medicines only as told by your doctor. If you were prescribed an antibiotic medicine, take it as told by your doctor. Do not stop using the antibiotic even if you start to feel better. General instructions Wash your hands often using soap and water. If soap and water are not available, use a hand tobacco sizer. Others in your home should wash their [...] sold at pharmacies and stores. Eat bland, jvqn-wh-swjifw foods in small amounts as you are [...] provider. Document Revised: 05/14/2022 Document Reviewed: 09/02/2021 [employer] Patient Education 2022 [employer]. Follow Up Care 02/15/2023 15:30:02 With:Will Mora FAM, MED Address: When:02/18/2023 [facility]12-12-2023 Evaluation + Plan note Diagnostic Tests Pending * Rotavirus Ab 02/15/23 Future Scheduled Tests Radiology* Echo Transthoracic Complete 12/16/22 [facility]12-07-2023 Hospital Discharge instructions Patient Education 02/10/2023 13:19:58 [...] younger than 2 years. Live in a intermediate. Travel on cruise ships. What are the [...] and water are not available, use hand tobacco sizer. Make sure that all people in your household wash their hands well and often. Take ucvk-ubm-cjmljex and prescription medicines only as told by [...] and water are not available, use hand tobacco sizer. This information is not intended to replace advice given to you by your health care provider. Make sure you discuss any questions you have with your health care provider. Document Revised: 12/21/2021 Document Reviewed: 12/21/2021 [employer] Patient Education 2022 [employer]. Follow Up Care 02/10/2023 11:48:53 With:Will Hawthorne Address: [address] [place] [phone] Business (1) When:02/13/2023 13:08:33 [facility]12-07-2023 Evaluation + Plan noteExtracted from: Title:ED Note Author:Rober Solorzano PA-C te:02/10/23 Diarrhea, unspecified (R19.7 : Diarrhea, unspecified) Nausea vomiting and diarrhea (R11.2: Nausea with vomiting, unspecified) Orders: ondansetron, 4 mg = 1 tab(s), Oral, TID, # 15 tab(s), Refills(s) 0, Pharmacy: [facility]/pharmacy #[id number], 170, cm, 02/10/23 12:01:00 EST, [...] Scheduled Tests Radiology* Echo Transthoracic Complete 12/16/22 [facility]11-22-2023 NoteHPI Staff This visit was conducted via two-way, real-time interactive video communications by Will Mora from my office using [employer]. The patient was located at their home, located at [address] [place] [address], with _ in attendance. A signed authorization for treatment has been obtained via our standard authorization packet or by verbal consent by the patient or their legal customer field representative. The patient's identity and location in [place] has been verified by our office staff. If it is determined that the patient should be evaluated in the clinic, the patient will be directed tothe appropriate clinic or venue. A limited physical exam will be conducted reviewing those areas ofthe body visible via telecommunications. Total time spent preparing the chart, conducting the encounter with the patient and family, and time spent documenting, reviewing, and ordering tests was _ minutes. All records and visits comply with HIPAA standards. Patient or Guardian reported vitals: Temp: _ Wt: _ Ht: _ BP: _ HR: _ Sp02: _ unable to obtain any vitals NAVIN 12/29/22 Pt Fluoxetine was decreased to 10mg due to when pt was taking 20mg and was making her feel drained and groggy. pt still feels drained and out of it, pt feels her heart if fluttering more Having some intimacy concerns. would like to discuss changing medication. pt states she does have some family members who are taking Zoloft and works well for them. pt was told she is having PAC 300 or more during her recording. She would like to talk about the chances of them turning into a-fib History of Present Illness pt presents on video conference to discuss anxiety/depression medicaiton Review of Systems ROS - Provider Constitutional: no fever, no chills, no sweats, no fatigue Respiratory: no shortness of breath, no cough, no orthopnea, no wheezing. Cardiovascular: no chest pain, no palpitations, no edema. Neurologic: no headache, no dizziness, no numbness, no weakness. Physical Exam General: alert, no acute distress ENMT: oral mucosa moist, no pharyngeal erythema or exudate Cardiovascular: regular rate and rhythm, normal peripheral perfusion Respiratory: Lungs CTA, respirations non labored Extremities: no deformity, no trauma Neurological: oriented x 4, LOC appropriate for age, CN II-XII intact, motor strength equal & normal bilaterally, speech normal Assessment/Plan 1. Anxiety, (F41.9: Anxiety disorder, unspecified)Anxiety pt presents today with worsening anxiety. fluoxetine was increased to 20mg briefly but pt did not like how it made her feel so groggy. went back to 10mg. pt states she is just really struggling with anxiety and is also having decreased libido. would like to switch to zoloft. disucssed other optionslike Lexapro and Effexor. pt would like to try this change first. all questions answered. RTC 4-6 weeks. unable to obtain vitals due to video confrence. Ordered: PORTAL VISIT 11-20 min [id number] 2. Bipolar 1 disorder, mixed, moderate (F31.62: Bipolar disorder, current episode mixed, moderate) see above 3. Depression (F32.9: Major depressive disorder, single episode, unspecified) see above Orders: sertraline, 25 mg = 1 tab(s), Oral, Daily, # 30 tab(s), Refills(s) 2, Pharmacy: [facility]/pharmacy #[id number],170, cm, 12/16/22 14:03:00 EDT, Height/Length Dosing, 71.4, kg, 12/29/22 13:44:00 EDT, Weight Dosing Follow-up No qualifying data available Problem List/Past Medical History Ongoing Abdominal pain Abnormal EKG Amenorrhea, secondary Anxiety Bacterial conjunctivitis of right eye Bipolar 1 disorder, mixed, moderate Bipolar disorder Cellulitis, leg Cervical sprain Cervical strain Chronic abdominal pain Depression Heart palpitations Migraines Neck muscle strain Pelvic pain Peroneal neuritis PTSD (post-traumatic stress disorder) Right hand pain Right upper quadrant pain Screening for cardiovascular condition Screening for thyroid disorder Smoker Vulvovaginitis Historical Depression Laceration of kidney without open wound into abdominal cavity orthostatic fainting Pseudoseizures Suicidal ideation Procedure/Surgical History Betamethasone (02/01/2017), Betamethasone (01/31/2017), lacerated Kidney (2007), Right Hand Surgery. Medications [facility] ASPIRIN EC 81 MG TABLET, See Instructions, Not taking diltiazem 120 mg oral capsule, extended release, 120 mg= 1 cap(s), Oral, Daily, 2 refills, Not taking Naprosyn 500 mg Tab, 500 mg= 1 tab(s), Oral, BID, PRN sertraline 25 mg Tab, 25 mg= 1 tab(s), Oral, Daily, 2 refills Allergies clindamycin (Hives) Social History Alcohol - Denies Alcohol Use, 04/26/2019 Current, Beer, Wine, 1-2 times per month, Household alcohol concerns: No., 04/15/2020 Employment/School - Not employed or in school, 01/31/2017 Exercise - Occasional exercise, 06/15/2013 Home/Environment - No Risk, 02/07/2017 Nutrition/Health - Low Risk, 02/07/2017 (more content not included)...[facility]Comment on above:Result Comment: Electronically Signed By: Will Mora.reina\Date and Time Signed: 01/26/23 13:29 [id number] NoteEchocardiology Procedure Exam Date/Time Accession # Ordering ECG Stress Exercise 01/03/2023 09:06 EDT [id number] Huang FLORES MD CPT code 44558 Reason for Exam (ECG Stress Exercise) R00.2;Chest pain Report TREADMILL ELECTROCARDIOGRAM 01/03/2023 INDICATIONS: Palpitations. RESTING ELECTROCARDIOGRAM: The patient has normal sinus rhythm, normal axis, normal intervals, no evidence of previous myocardial infarction. TREADMILL ELECTROCARDIOGRAM: The patient exercised according to a Danny Protocol for 6 minutes and 24 seconds achieving a maximum workload of 7.50 METS. Resting heart rate was 75 beats per minute and mohan to a maximum of 169 beats per minute which represents 88% of the maximal age predicted heart rate. Resting blood pressure was 102/71 and mohan to a maximum of 153/54. Test was terminated due to the attainment of target heart rate. During exercise the patient's heart rate increased as expected. The patient had no significant dynamic electrocardiogram changes to suggest ischemia. No arrhythmia is noted. No anginal symptoms noted. CONCLUSIONS: Normal, adequate treadmill electrocardiogram. Negative for ischemia by electrocardiogram criteria. No anginal symptoms noted. No arrhythmia is noted. Average exercise capacity for age. The patient tolerated the procedure well. No complications. FINAL REPORT Signed (Electronic Signature): 01/03/2023 12:59 pm Signed by: Huang FLORES MD Transcribed by: gina Technologist: [facility]10-12-2023 Evaluation + Plan note Future Scheduled Tests Radiology* Echo Transthoracic Complete 12/16/22 [facility]09-15-2023 NoteHPI Staff This visit was conducted via two-way, real-time interactive video communications by Will Mora from my office using [employer]. The patient was located at their home, located at [address] [place] [phone], with _ in attendance. A signed authorization for treatment has been obtained via our standard authorization packet or by verbal consent by the patient or their legal customer field representative. The patient's identity and location in [place] has been verified by our office staff. If it is determined that the patient should be evaluated in the clinic, the patient will be directed tothe appropriate clinic or venue. A limited physical exam will be conducted reviewing those areas ofthe body visible via telecommunications. Total time spent preparing the chart, conducting the encounter with the patient and family, and time spent documenting, reviewing, and ordering tests was _ minutes. All records and visits comply with HIPAA standards. Patient or Guardian reported vitals: Temp: _ Wt: _ Ht: _ BP: _ HR: _ Sp02: _ Follow up for Mental Status: Medication adherence- Yes, takes medication as prescribed MEdication refill needed: _ Suicidal thoughts-Not at this time Most recent JULIA: Most recent PHQ: Was seen at [facility] 11/15/22, Palpitations x 1 month left sided arm pain/midsternal discomfort started 11/12/22, Had EKG and labs were ordered labs completed 11/15/22 EKG Normal. Pt did state shehas had recent panic attacks. No s/s of mastitis pt was started on Cephalexin 500mg 1 capsule Q 8hrs x 5 days. Questions/Concerns: ache pain left arm with intermittent numbness sometimes will move to right arm rates pain 4/10 when up and moving can go to 8/10. Intermittent midsternal pain and middle of back between shoulder blades. Pt states she never started Keflex due to blood work came back normal. Palpitations mostly only happen at night time she can feel her heart flopping around. Pt would like to go over EKG results from [facility] vs ER visit. Panic attacks started after ER visit end of 2022. Does have history of them when she was younger. JULIA: 13 History of Present Illness pt presents today via video appointment to discuss EKG results. She had one at [facility] and one in ER. Review of Systems ROS - Provider Constitutional: no fever, no chills, no sweats, no fatigue Respiratory: no shortness of breath, no cough, no orthopnea, no wheezing. Cardiovascular: yes chest pain, yes palpitations, no edema. left arm tingling Neurologic: no headache, no dizziness, no numbness, no weakness. Physical Exam General: alert, no acute distress ENMT: oral mucosa moist, no pharyngeal erythema or exudate Cardiovascular: regular rate and rhythm, normal peripheral perfusion Respiratory: Lungs CTA, respirations non labored Extremities: no deformity, no trauma Neurological: oriented x 4, LOC appropriate for age, CN II-XII intact, motor strength equal & normal bilaterally, speech normal Assessment/Plan 1. Heart palpitations (R00.2: Palpitations) pt states she still feels palpitation and some chest pain as well. was cleared in ER for heart attack. pt is still very concerned about this and she feels it is making her more anxious not knowing what is going on. will order halter monitor and refer to Dr. Crum. She would like to see himin [place] office if possible. all questions answered. pt encouraged to go to ER if any symptoms become worse or she gets new symptoms. Ordered: [facility] Internal Ambulatory Referral Holter Monitor 48 hr TELEHEALTH Office Visit Level 3 Est 11853 2. Abnormal EKG (R94.31: Abnormal electrocardiogram [ECG] [EKG]) Pt is very concerned about EKG results. discussed halter monitor and referral to Cardiology at length Ordered: [facility] Internal Ambulatory Referral Holter Monitor 48 hr TELEHEALTH Office Visit Level 3 Est 15882 3. Anxiety (F41.9: Anxiety disorder, unspecified) pt previously took Prozac but has been off of it since last Spring. she declines trying to start anything to manage anxiety at this time. she said most meds make her feel like a zombie Ordered: [facility] Internal Ambulatory Referral Holter Monitor 48 hr TELEHEALTH Office Visit Level 3 Est 89638 Follow-up No qualifying data available Problem List/Past Medical History Ongoing Abnormal EKG Amenorrhea, secondary Anxiety Bacterial conjunctivitis of right eye Bipolar 1 disorder, mixed, moderate Bipolar disorder Cellulitis, leg Cervical sprain Cervical strain Chronic abdominal pain Depression Heart palpitations Migraines Neck muscle strain Pelvic pain Peroneal neuritis PTSD (post-traumatic stress disorder) Right hand pain Screening for cardiovascular condition Screening for thyroid disorder Smoker Vulvovaginitis Historical Depression Laceration of kidney without open wound into abdominal cavity orthostatic fainting Pseudoseizures Suicidal i (more content not included)...[facility]ighComment on above:Result Comment: Electronically Signed By: Will Mora\huang\Date and Time Signed: 11/19/22 09:34 [id number] Hospital Discharge instructions Patient Education 11/15/2022 11:01:25 [...] your breasts are very tender. Medicines Take sddn-rzz-sjxkwov and prescription medicines only as told by [...] provider. Document Revised: 07/16/2019 Document Reviewed: 07/16/2019 [employer] Patient Education 2022 [employer]. 11/15/2022 11:01:21 Palpitations, Lvag-gl-Wwao Palpitations Palpitations are feelings that your heartbeat [...] quitting, ask your doctor. General instructions Take lnbs-xgk-gbgthuj and prescription medicines only as told by [...] provider. Document Revised: 07/15/2021 Document Reviewed: 07/15/2021 [employer] Patient Education 2022 [employer]. Follow Up Care 11/15/2022 09:32:35 With:Will Mora FAM, MED Address:Unknown When: Unknown [facility] 08-30-2023 Hospital Discharge instructions Patient Education 11/03/2022 11:03:46 Cervical Sprain, Mnwl-ec-Doay Cervical Sprain A cervical sprain is also [...] Follow these instructions at home: Medicines Take vbdn-eja-yyzufbl and prescription medicines only as told by your doctor. Ask your doctor if the medicine prescribed to you: ?Requires you to avoid driving or using heavy machinery. ?Can cause trouble pooping (constipation). You may need to take these actions to prevent or treat trouble pooping: ?Drink enough fluid to keep your pee (urine) pale yellow. ?Take sdcz-nxa-vwqzpxc or prescription medicines. ?Eat foods that are [...] provider. Document Revised: 10/31/2019 Document Reviewed: 10/31/2019 [employer] Patient Education 2022 [employer]. Follow Up Care 11/03/2022 09:13:17 With:Will Mora, [place], MED Address:Unknown When: Unknown [facility] 08-29-2023 Evaluation + Plan noteExtracted [...] GARY Dubose Within 2 to 4 weeks [address] [place] [address]- Additional Instructions: Core Measures: Stroke (Cerebrovascular Accident) [facility], (Custom) Extracted from: Title:Consult Note- Neurology Author:Sailaja [...] Basic Metabolic Panel CBC w/ Auto Diff [place] Stroke Scale Communication Order Physician to Nursing [...] Appointment Date:11/09/2022 11:20:00 AM Scheduled Provider:Will Mora Location:[facility] Appointment Type: Open [facility]08-29-2023 NotePT Evaluation done this date. Pt. with on AM-PAC this date. No further PT needs.[facility] 11-[facility]-2022 Hospital Discharge instructions Patient Education 11/02/2022 09:32:17 Core Measures: Stroke (Cerebrovascular Accident) [facility], (Custom) Stroke (Cerebrovascular Accident) A stroke is [...] factors for stroke, work with your health career and guidance counselor to control them. High Blood Pressure: High [...] Please call [facility] Smoking Cessation Program at [phone] ([facility]), or [phone], ext. [phone] Diabetes: Work with your healthcare professional to [...] cholesterol diet, you can call our [employer] technical maintenance technician at [phone] Ext. [phone]. The goal for total cholesterol is less [...] your risk of stroke with your health career and guidance counselor. TREATMENT TIME IS OF THE ESSENCE! Medications [...] Measures will be takento prevent short and tank terminal gauger complications, including aspiration pneumonia, blood clots in [...] for more information on strokes, log onto [email or web address] or [email or web address] or call the [place] [employer] at [phone]. Revised 03/2018 Follow Up Care 11/01/2022 13:31:49 With:Will Hawthorne Address: [address] [place] [address]- Business (1) When:11/05/2022 11:40:00 With:Romario GAMBLE, GARY Dubose Address: [address] [place] [address]- When:11/30/2022 13:40:00 Comments:Neurology appt will be on 11/30/2022 at 1:40 pm with Kaylee Aldridge in the [place] OFFICEPlease bring insurance card, photo ID, and any discharge papers you have from the [facility]08-29-2023 NoteAdmission and Discharge Information Admitting Physician - CLARK GAMBLE, Juan Consulting Physician - Romario GAMBLE, Wilbert Barnhrat DO Admitting Diagnoses: Discharge Diagnoses 1. Paresthesia of right upper extremity, 11/01/2022 2. Bipolar disorder, 11/01/2022 3. No contraindication to deep vein thrombosis (DVT) prophylaxis, 11/01/2022 Neck pain, 11/01/2022 Paresthesia, 11/01/2022 Procedure History Betamethasone (02/01/2017), Betamethasone (01/31/2017), lacerated Kidney (2007), Right Hand Surgery. Hospital Course Pt is a 26 F admitted with transient headache and right sided paresthesia. pt had a negative CTA head and neck, negative MRI brain and MRI C spine. Pt was seen by neurology. Pt had complete resolution of symptoms. d/w neurology , may have been complicated migraine, neurology recommended ASA 81 mg po q day x 7 days. Pt discharged home in improved condition to follow up with PCP and neurology outpatient. Services Consulted Consult to Neurology - Ordered -- 11/01/22 15:51:00 EDT, paresthesias, Wilbert Viveros DO, Consult and Co-manage Consult to Neurology - Ordered -- 11/01/22 16:19:00 EDT, paresthesia, Consult and Co-manage Physical Exam Vitals & Measurements T: 36.5 ?C(Axillary) TMIN: 36 ?C(Axillary) TMAX: 36.8 ?C(Oral) HR: 64(Monitored) RR: 14 BP: 103/65 SpO2: 99% HT: 170.18 cm WT: 72.5 kg General: alert, no acute distress ENMT: oral mucosa moist, no pharyngeal erythema or exudate Cardiovascular: regular rate and rhythm, normal peripheral perfusion Respiratory: Lungs CTA, respirations non labored Abdomen: soft, NTND, +BS Skin: warm, dry, intact Extremities: no deformity, no trauma Neurological: LOC appropriate for age, CN II-XII intact, motor strength equal & normal bilaterally, sensation equal & normal bilaterally, speech normal Laboratory Results Automated Diff (11/01/2022) Neutro Auto - 58.8 % Lymph Auto - 30.1 % [place] Auto - 7.1 % Eos Auto - 2.7 % Basophil Auto - 1.3 % Neutro Absolute - 4.5 E9/L Lymph Absolute - 2.3 E9/L [place] Absolute - 0.5 E9/L Eos Absolute - 0.2 E9/L Basophil Absolute - 0.1 E9/L BMP (11/01/2022) Glucose Lvl - 99 mg/dL BUN - 12 mg/dL Creatinine - 0.8 mg/dL BUN/Creat Ratio - 15 Sodium Lvl - 140 mmol/L Potassium Lvl - 3.9 mmol/L Chloride - 114 mmol/L CO2 - 20 mmol/L AGAP - 10 mEq/L Calcium Lvl - 9.5 mg/dL Capillary Glucose POC (11/01/2022) Glucose Cap - 109 mg/dL POC Device SN - [id number] POC User ID - [id number] POC Username - ANT VILLAGOMEZ CBC w/ Auto Diff (11/01/2022) WBC - 7.7 E9/L RBC - 4.7 E12/L Hgb - 13.7 gm/dL Hct - 40.4 % MCV - 86.7 fL MCH - 29.5 pg MCHC - 34.0 gm/dL RDW - 13.5 % Platelet - 236.0 E9/L MPV - 8.3 fL eGFR (11/01/2022) eGFR - 104 mL/min/1.73 m2 Lipid Panel (11/02/2022) Chol - 161 mg/dL Trig - 71 mg/dL HDL - 36 mg/dL LDL Direct - 103 mg/dL VLDL - 14 mg/dL PT & PTT (11/01/2022) PT - 12.3 second(s) INR - 1.1 PTT - 34.8 second(s) Troponin 0 Hr. (11/01/2022) Troponin - 2.50 pg/mL TSH With T4fr Reflex (11/02/2022) TSH - 2.85 mcIU/mL U Beta Hcg Qual (11/01/2022) U beta hCG Ql - Negative Urinalysis with Culture Reflex (11/01/2022) UA Spec Desc - Random Urine UA Color - Yellow2 UA Clarity - Clear2 UA Spec Grav - 1.010 UA pH - 6.0 UA Protein - NEGATIVE1 UA Glucose - NEGATIVE1 UA Ketones - NEGATIVE1 UA Bili - NEGATIVE1 UA Blood - Trace2 UA Nitrite - NEGATIVE1 UA Urobilinogen - 0.2 UA Leuk Est - NEGATIVE1 UA RBC - 0-3 UA Squam Epithelial - 0-2 UA WBC - 0-5 UA Bacteria - Trace2 Tests Performed Automated Diff BMP Capillary Glucose POC CBC w/ Auto Diff eGFR HgbA1c -- Results Pending -- Lipid Panel PT & PTT Troponin 0 Hr. TSH With T4fr Reflex U Beta Hcg Qual Urinalysis with Culture Reflex Cervical Spine MRI w/o Contrast CT Head or Brain w/o Contrast CTA Head CTA Neck MRI Brain w/o Contrast Please visit your patient portal for your results or contact your primary care physician. Discharge Plan Discharge Disposition Discharged to - Home with family care Discharge Diet Discharge Diet(s): Regular (11/02/22 08:21:00) Discharge Medication List Prescriptions aspirin 81 mg Oral EC Tab, 81 mg= 1 tab(s), Oral, Daily Home Prozac, 20 mg, Oral, Daily, Not taking: patient states the last dose was 2-3 months ago Follow-up With When Contact Information XXXX NONE [place] Additional Instructions: Romario GAMBLE, GARY Dubose Within 2 to 4 weeks [address] [place] [address]- Additional Instructions: Patient Education Core Measures: Stroke (Cerebrovascular Accident) [facility], (Custom)[facility]ighComment on above:Result Comment: Electronically Signed By: CLARK GAMBLE, Juan\.br\Date and Time Signed: 11/02/22 09:26 [id number] NoteBasic Information Accompanied by: No Accompaniment Source of History: Self Present at Bedside: Other Referral Source: ED History Limitation: None Chief Complaint Pt was at chiropractor around 929 for neck pain and he adjusted neck when she immediately felt weird and having R sided numbness/weakness. History of Present Illness Pt is a 26 F PMH bipolar disorder admitted with complaints of right arm weakness. Pt also complainsof numbness and tingling of right arm and right face. Pt with some headache. Pt says she had the sudden onset of this after getting adjusted at the chiropractor. Pt says she already has had some improvement in symptoms. no other complaints. Review of Systems Additional ROS info: Except as noted in the above Review of Systems and in the History of Present Illness all other systems have been reviewed and are negative or noncontributory. Scoring Wells Fall Risk Score: 20 (11/01/22) Physical Exam Vitals & Measurements T: 36.8 ?C(Oral) TMIN: 36.6 ?C(Tympanic) TMAX: 36.8 ?C(Oral) HR: 66(Peripheral) RR: 16 BP: 119/74 SpO2: 100% HT: 172 cm WT: 73 kg General: alert, no acute distress Skin: warm, dry Head: no trauma, normocephalic Neck: Trachea midline, no adenopathy, no tenderness Eye: normal conjunctiva, sclera clear ENMT: oral mucosa moist, no pharyngeal erythema or exudate Cardiovascular: regular rate and rhythm, normal peripheral perfusion Respiratory: Lungs CTA, respirations non labored Chest wall: no deformity. Gastrointestinal: soft, non distended, no tenderness, no guarding. Back: No tenderness, Normal ROM, Normal alignment. Extremities: no deformity, no trauma Neurological: oriented x 4, LOC appropriate for age, CN II-XII intact, motor strength equal & normal bilaterally, sensation equal & normal bilaterally, speech normal Psychiatric: cooperative, affect appropriate for age, normal judgement, normal psychiatric thoughts. Lab Results WBC: 7.7 E9/L (11/01/22 13:44:00) RBC: 4.7 E12/L (11/01/22 13:44:00) HGB: 13.7 gm/dL (11/01/22:44:00) Hct: 40.4 % (11/01/22:44:00) MCV: 86.7 fL (11/01/22:44:00) MCH: 29.5 pg (11/01/22:44:00) MCHC: 34 gm/dL (11/01/22:44:00) RDW: 13.5 % (11/01/22:44:00) Platelet: 236 E9/L (11/01/22:44:00) MPV: 8.3 fL (11/01/22 13:44:00) Neutro Auto: 58.8 % (11/01/22 13:44:00) Lymph Auto: 30.1 % (11/01/22 13:44:00) [place] Auto: 7.1 % (11/01/22 13:44:00) Eos Auto: 2.7 % (11/01/22:44:00) Basophil Auto: 1.3 % (11/01/22 13:44:00) Neutro Absolute: 4.5 E9/L (11/01/22 13:44:00) Lymph Absolute: 2.3 E9/L (11/01/22 13:44:00) [place] Absolute: 0.5 E9/L (11/01/22 13:44:00) Eos Absolute: 0.2 E9/L (11/01/22 13:44:00) Basophil Absolute: 0.1 E9/L (11/01/22:44:00) PT: 12.3 second(s) (11/01/22 13:44:00) INR: 1.1 (11/01/22 13:44:00) PTT: 34.8 second(s) (11/01/22 13:44:00) Glucose Lvl: 99 mg/dL (11/01/22 13:44:00) BUN: 12 mg/dL (11/01/22 13:44:00) Creatinine: 0.8 mg/dL (11/01/22 13:44:00) eGFR: 104 mL/min/1.73 m2 (11/01/22 13:44:00) BUN/Creat Ratio: 15 (11/01/22 13:44:00) Sodium Lvl: 140 mmol/L (11/01/22 13:44:00) Potassium Lvl: 3.9 mmol/L (11/01/22 13:44:00) Chloride: 114 mmol/L High (11/01/22 13:44:00) CO2: 20 mmol/L Low (11/01/22 13:44:00) AGAP: 10 mEq/L (11/01/22 13:44:00) Calcium Lvl: 9.5 mg/dL (11/01/22 13:44:00) Troponin: 2.5 pg/mL Low (11/01/22 13:44:00) Glucose Cap: 109 mg/dL High (11/01/22 13:38:00) POC Device SN: [id number] (11/01/22 13:38:00) POC User ID: [id number] (11/01/22 13:38:00) POC Username: POC Username (11/01/22 13:38:00) Diagnostic Results EKG NSR [address]-T wave changes Images CT Head or Brain w/o Contrast 11/01/22 13:59:35 ADD TEXT: neg for bleed. Read By: Sohan Funk M.D. 11/01/22 13:59:35 11/01/2022 01:59 pm EDT, Sohan Funk M.D. neg for bleed. Signed By: Sohan Funk M.D. 11/01/22 14:05:59 IMPRESSION: NEGATIVE CT SCAN OF THE BRAIN. CLINICAL HISTORY: Neuro deficit, acute, stroke suspected. Right-sided numbness and weakness. COMPARISON: 09/29/2022. COMMENT: Unenhanced images were obtained. The ventricles and basal cisterns and appear within normal limits. There is no mass effect nor midline shift. No abnormal attenuation within the brain is noted. There is no evidence of recent intracranial hemorrhage nor extra-axial hematoma. No mass lesion is evident. No skull fracture is noted. There has been no significant change when compared to the prior exam. All CT scans at this facility use dose modulation, iterative reconstruction, and/or weight based dosing when appropriate to reduce radiation dose to as low as reasonably achievable. Ordering Provider: Karie Newman Signed By: Sohan Funk M.D. CTA Head 11/01/22 14:39:00 Please see CTA neck report regarding CTA head findings. Ordering Provider: Karie Newman Signed By: William Rubio DO (more content not included)...[facility]:Result Comment: Electronically Signed By: CLARK GAMBLE, Juan\.br\Date and Time Signed: 11/01/22 16:37 [id number] Evaluation + Plan noteExtracted from: Title:ED Note Author:Winnie Paula DO Date :09/29/22 Acute headache (R51.9: Heada montserrat, unspecified) Orders: ketorolac, 30 mg = 1 mL, Injection, IntraMuscular, Once, Stop date 09/29/22 0:10:00 EDT, STAT, Start date 09/29/22 0:10:00 EDT, 09/29/22 0:10:[address] Head or Brain w/o Contrast [facility]07-26-2023 Hospital Discharge instructions Patient Education 09/29/2022 01:19:29 General Headache Without Cause, Rwze-wz-Efhz General Headache Without Cause A headache is pain or discomfort you feel around the head or neck area. There are many causes and types of headaches. In some cases, the cause may not be found. Follow these instructions at home: Watch your condition for any changes. Let your doctor know about them. Take these steps to help with your condition: Managing pain Take ikqd-ply-jhiyuxj and prescription medicines only as told by [...] provider. Document Revised: 07/22/2021 Document Reviewed: 07/22/2021 [employer] Patient Education 2022 [employer]. Follow Up Care 09/28/2022 23:42:21 With:Wilbert Viveros Address: [address] [place] [address]- Business (1) When:10/02/2022 With:KATELYN ROBERTS Address: [address] [place] [address] Business (1) When:10/02/2022 Comments:Take ibuprofen, Tylenol every 6 hours as needed for pain. Please follow-up with your primary care doctor in the next 2 to 3 days. Please return to the ED for any new or worsening symptoms. [facility]04-28-2023 Hospital Discharge instructions Patient Education [...] your health care provider. Take or apply qoxf-ikn-izlrvzw and prescription medicines only as told by [...] provider. Document Revised: 06/03/2021 Document Reviewed: 06/03/2021 [employer] Patient Education 2022 [employer]. Follow Up Care 07/02/2022 09:16:57 With:KATELYN ROBERTS CNP Address: [address] [place] [address] When: Unknown [facility] [place] 04-19-2023 NoteChief Complaint Discuss referral HPI Staff Kassie is a 26 year old female who presents for referral. Patient states that she has had colonoscopy in the past. Patient states that she has never followedup with anyone. So patient is wanting a referral to GI. She has been having pains to abd. The pain has been going on for many years denies getting worse. She has taken Tylenol at times. History of Present Illness Kassie Diallo is a 26-year-old female who presents today to discuss possible referral to GI due to chronic abdominal pains. The patient had a colonoscopy after she had her son, due to symptoms of presistent abdominal pain, They thought it was celiac, but it was not labs were negative at that time. She never followed up after that. She gets stomach pains intermittently. She has a family history of gallbladder issues and autoimmune issues. She tried to get in with GI, but they told her that she needed a referral. She has changes in stools which most consist of constipated and bleeding sometimes with pain due to fissures. She does get nausea and vomits with stomach pains. Sometimes they get so bad that they feel likelabor contractions, the pain lasts 1 to 5 minutes. She uses Tucks pads and ibuprofen with mild to minimal effectiveness. I have reviewed and verified the staff HPI to be accurate for this encounter. Review of Systems PHQ Score Initial Depression Screen Score: 0 Constitutional: No fever, no chills, no sweats, no weakness Skin: No rash, no lesions, no petechiae Eye: No eye pain, no discharge, no light sensitivity, no eye irritation, no double vision blurring,no vision loss ENMT: No ear pain, no ear drainage, no sore throat, no nasal congestion, no nasal drainage, no hoarseness Respiratory: No chest discomfort, no shortness of breath, no cough, no orthopnea, no wheezing Cardiovascular: No chest pain no, no palpitations, no edema Gastrointestinal: Positive for intermittent abdominal pain. Genitourinary: No dysuria, no hematuria, no discharge, no urinary frequency, no urinary urgency Musculoskeletal: No back pain, no trauma Neurologic: No headache, no dizziness, no numbness/tingling, no weakness Physical Exam Vitals & Measurements T: 36.7 ?C(Temporal Artery) HR: 82(Peripheral) BP: 108/64 SpO2: 99% HT: 67 in HT: 170 cm WT: 75 kg WT: 165 lb BMI: 25.95 General: Well-developed, well nourished, in no acute distress Neck: Neck supple. No masses or palpable cervical nodes. Trachea midline. Lungs: Normal respiratory effort and clear to auscultation Cardio: Regular rate and rhythm, normal S1 and S2, no murmur, no rub Abdomen: Soft, non-distended, non-tender Musculoskeletal: No deformity or scoliosis noted. Normal range of motion. Joints normal. No erythema, edema, effusion, or ecchymosis Extremity: No clubbing, cyanosis, edema, or deformity, with normal ROM in both upper and lower bilateral extremities Neurologic: Grossly normal Skin: No rashes, ulcerations, or suspicious lesions to visible skin Mental Status: Alert and oriented x3. Normal mood and affect Assessment/Plan 1. Chronic abdominal pain (R10.9: Unspecified abdominal pain) Patient states it does come and go and 2-wq-7-minute type waves, so did discuss likely not realistic to assist with medication at this time, will be referring to GI for further evaluation and management of condition. Patient agrees with the treatment plan. Denies any further questions or concerns at this time. Other chronic pain (G89.29: Other chronic pain) ATTESTATION: Documentation services were performed after patient or guardian consented to allow [employer] to record this visit. [place] insurance specialist and provider reviewed before signing. [place]: Deandre George. Follow-up With When Contact Information KATELYN ROBERTS CNP [address] [place] [address] Additional Instructions: Patient Education Abdominal Pain, Adult Problem List/Past Medical History Ongoing Amenorrhea, secondary Bipolar 1 disorder, mixed, moderate Cellulitis, leg Chronic abdominal pain Depression Migraines Pelvic pain Peroneal neuritis PTSD (post-traumatic stress disorder) Right hand pain Screening for cardiovascular condition Screening for thyroid disorder Smoker Vulvovaginitis Historical Depression Laceration of kidney without open wound into abdominal cavity orthostatic fainting Pseudoseizures Suicidal ideation Procedure/Surgical History Betamethasone (02/01/2017), Betamethasone (01/31/2017), lacerated Kidney (2007), Right Hand Surgery. Medications Prozac, 20 mg, Oral, Daily Allergies clindamycin (Hives) Social History Alcohol - Denies Alcohol Use, 04/26/2019 Current, Beer, Wine, 1-2 times per month, Household alcohol concerns: No., 04/15/2020 Employment/School - Not employed or in school, 01/31/2017 Employed, Work/School description: at home. 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 Hi (more content not included)...[facility]Comment on above:Result Comment: Electronically Signed By: KATELYN ROBERTS CNP\.br\Date and Time Signed: 06/23/22 21:34 EDT\.br\Electronically Co-Signed By: Deandre Brizuela\.br\Date and Time Co-Signed: 06/22/22 16:44 [id number] Hospital Discharge instructions Patient Education 05/13/2022 11:29:15 [...] 05/14/2003 Document Revised: 03/08/2018 Document Reviewed: 07/26/2016 [employer] Patient Education 2020 [employer] 05/13/2022 11:29:12 Upper Respiratory Infection, Adult Upper [...] medicines to help relieve symptoms, such as: Vsbh-znr-iuurkbw cold medicines. Cough suppressants. Coughing is a [...] and other clear broths. General instructions Take rvme-wrd-eybyudv and prescription medicines only as told by [...] and water are not available, use hand tobacco sizer. ?Avoid touching your mouth, face, eyes, or [...] 08/17/2001 Document Revised: 03/01/2019 Document Reviewed: 10/07/2017 [employer] Patient Education 2020 [employer] Follow Up Care 05/13/2022 09:45:34 With:KATELYN ROBERTS CNP Address: [address] [place] [address] When: Unknown [facility] 03-08-2023 Hospital Discharge instructions Patient [...] medicines to help relieve symptoms, such as: Fqao-iys-thjvcdi cold medicines. Cough suppressants. Coughing is a [...] and other clear broths. General instructions Take gubm-zxq-hbtdkum and prescription medicines only as told by [...] and water are not available, use hand tobacco sizer. ?Avoid touching your mouth, face, eyes, or [...] 08/17/2001 Document Revised: 03/01/2019 Document Reviewed: 10/07/2017 [employer] Patient Education 2020 [employer]. Follow Up Care 05/11/2022 20:58:33 With:KATELYN ROBERTS Address: [facility] [place] [address] [place] [address] Business (1) When:05/14/2022 Comments:Call the [...] or worsening symptoms.Tylenol and Mucinex for symptoms. [facility]03-07-2023 Evaluation + Plan noteExtracted from: Title:ED Note Author:Twin DO Quintin SchmidtJay Date: Acute upper respiratory infe ction (J06.9: Acute upper respiratory infection, unspecified) Orders: ECG 12 Lead Adult Group A Strep by PCR Rapid Strep w/rfx XR Chest Single View Future Scheduled Tests Radiology* XR Hand 3+ Views Right 04/21/22 [facility]02-15-2023 Evaluation + Plan note Future Scheduled Tests Radiology* XR Hand 3+ Views Right 04/21/22 [facility]12-30-2022 Evaluation + Plan noteExtracted from: Title:ED Note Author:Shannen Ceja PA-C Kiran e:03/05/22 1. Flu-like symptoms (R68.89 : Other general symptoms and signs) Orders: fluticasone nasal, 2 spray(s), Nasal, Daily, 16 gram, Refill(s) 0, each nostril, [facility]/pharmacy #[id number], 170, cm, 03/04/22 21:57:00 EST, Height/Length Dosing, 76.1, kg, 03/04/22 21:57:00 EST, Weight Dosing Rapid COVID Antigen ([facility]) Resp.syn.virus (Rsv) 26-year-old female presents to the [...] voices understanding and is agreeable to plan. [facility]12-30-2022 Hospital Discharge instructions Patient Education [...] Your health care provider may recommend: Taking dwmg-epg-rgqsumn medicines. Drinking plenty of fluids. In many [...] juice, and low-calorie sports drinks. Eat bland, rzhd-mu-temhdq foods in small amounts as you are able. These foods include bananas, applesauce, rice, lean meats, toast, and crackers. Avoid drinking fluids that contain a lot of sugar or caffeine, such as energy drinks, regular sports drinks, and soda. Avoid alcohol. Avoid spicy or fatty foods. General instructions Take ppim-lxj-kwfhoxe and prescription medicines only as told by [...] water are not available, use alcohol-based hand tobacco sizer. Keep all follow-up visits as told by [...] 02/18/2001 Document Revised: 05/24/2019 Document Reviewed: 08/09/2018 [employer] Patient Education 2020 [employer]. Follow Up Care 03/04/2022 21:49:31 With:Take Tylenol and Motrin for fevers and body aches. Use honey and cough lozenges for cough and sore throat. Follow-up with your primary care provider and return to the ED with any new or worsening symptoms. Address:Unknown When: Unknown With:Emily MICHAEL Address: [address] [place] [address] [address] [place] [address]- Business (1) When:Within 3 Day(s) [facility]11-02-2022 Hospital Discharge instructions Patient Education 01/06/2022 11:42:30 COVID-19: How to Protect Yourself and Others - CDC COVID-19: How to Protect Yourself and Others Know how it spreads There is currently no vaccine to prevent coronavirus disease 2019 (COVID-19). The best way to prevent illness is to avoid being exposed to this virus. The virus is thought to spread mainly from dyppwv-ap-hyerhr. ?Between people who are in close contact [...] are not readily available, use a hand tobacco sizer that contains at least 60% alcohol. Cover [...] at higher risk of getting very sick.www.cdc.gov/cor onavirus/2019-ncov/texl-otmhj-rjxeqrkzppp/bpcmwm-fc-trgzuq-risk.html Cover your mouth and nose with a [...] available, clean your hands with a hand tobacco sizer that contains at least 60% alcohol. Clean and disinfect Clean AND disinfect frequently touched surfaces daily. This includes tables, doorknobs, light switches, countertops, handles, desks, phones, keyboards, toilets, faucets, and sinks. www.cdc.gov/coronav irus/2019-ncov/eshmlsn-kpxauvq-aobf/iizdwsthutwe-iwok-bwpx.html If surfaces are dirty, clean them: Use [...] 06/19/2019 Document Revised: 09/13/2019 Document Reviewed: 09/13/2019 [employer] Patient Education 2019 [employer] 01/06/2022 11:42:30 COVID-19 Frequently Asked Questions [...] the coronavirus come from? In February 2019, [place] told the World Health Organization (WHO) of several cases of lung disease (human respiratory illness). These cases were linked to an open seafood and livestock market in the city of [facility]. The link to the seafood [...] and virus naming World Health Organization (WHO): www.who.int/emergencies/diseases/zncli-wxlkntzptqs-1439/technical-g uidance/jatvkk-yji-zdldxtnwacj-disease-(covid-2019)-olu-xuc-brrpy-fgmu-cbvtcs-aj Who is at risk for complications from [...] relieve his or her symptoms by using vrpj-ujq-fotvjvd medicines that treat sneezing, coughing, and runny [...] water are not available, use alcohol-based hand tobacco sizer. Avoid touching your face, mouth, nose, or [...] Prevention (CDC): www.cdc.gov/coronavirus/2019-ncov/travelers/index.html World Health Organization (WHO): www.who.int/emergencies/diseases/pfqgf-lbnojunvfyq-8060/travel-advice Know the risks and take action to [...] water are not available, use alcohol-based hand tobacco sizer. Cough or sneeze into a tissue, sleeve, [...] in hot, soapy water or use a nylon machine operator. Air-dry your dishes. Wash laundry in hot [...] Health Organization (WHO) Information and news updates: www.who.int/emergencies/diseases/fgmfx-klugequskre-0231 Coronavirus health topic: www.who.int/health-topics/coronavirus Questions and answers on COVID-19: www.who.int/news-room/q-a-detail/m-h-anhfknvaxjvrd Global tracker: who.Just Be Friends [place] Academy [employer] Pediatrics (AAP) Information for families: www.healthychildren.org/[place]/health-issues/conditions/chest-lungs/Pages /5042-Vcwzy-Brpkpggmyur.aspx The coronavirus situation is changing rapidly. Check [...] 06/19/2019 Document Revised: 06/19/2019 Document Reviewed: 06/19/2019 [employer] Patient Education 2019 [employer]. 01/06/2022 11:42:30 COVID-19 COVID-19 COVID-19 is a [...] to fight infection (immunocompromised). Live in a intermediate or long-term care facility. Have a long-term [...] managed at home with rest, fluids, and mvgz-spp-qqyrvwa medicines. Treatment for a serious infection usually [...] are safe for you. General instructions Take icnp-nah-seoslki and prescription medicines only as told by [...] high-risk areas and travel restrictions, check the CDC travel website: wwwnc.cdc.gov/travel/notices If you live in, or must travel to, an area where COVID-19 is a risk, take precautions to avoid infection. ?Stay away from people who are sick. ?Wash your hands often with soap and water for 20 seconds. If soap and water are not available, usean alcohol-based hand tobacco sizer. ?Avoid touching your mouth, face, eyes, or [...] water are not available, use alcohol-based hand tobacco sizer. Stay away from other members of your [...] have a weak immunity, live in a intermediate, or have chronic disease. There is no [...] 03/29/2019 Document Revised: 07/19/2019 Document Reviewed: 03/29/2019 [employer] Patient Education 2020 [employer]. Follow Up Care 01/06/2022 10:01:13 With:Emily MICHAEL Address: [address] [place] [id number] Business (1) When:01/09/2022 11:19:47 Comments:Follow-up with your primary care provider in 3 to 5 days. If symptoms worsen, do not improve, or new symptoms arise please report back to emergency department for further evaluation. [facility]07-10-2022 Hospital Discharge instructions Patient Education [...] molars is sometimes referred to as wisdomteeth. [place] teeth are most often affected by this [...] Follow these instructions at home: Medicines Take cdql-mhf-vekucno and prescription medicines only as told by [...] as fried or sweet foods. ?Take an oxpl-tjc-olugujy or prescription medicine for constipation. General instructions [...] 10/20/2011 Document Revised: 04/14/2018 Document Reviewed: 02/06/2018 [employer] Patient Education 2020 [employer] 09/13/2021 13:27:15 Dental Pain Dental Pain Dental [...] discomfort that you are feeling: Medicines Take mykk-lql-henkqoh and prescription medicines only as told by [...] if directed by your health care provider. [place] your teeth with a soft-bristled toothbrush. General [...] pain may be mild or severe. Take arrr-uyy-yziityj and prescription medicines only as told by [...] 02/21/2006 Document Revised: 06/19/2019 Document Reviewed: 01/12/2018 [employer] Patient Education 2020 [employer]. Follow Up Care 09/13/2021 12:15:29 With:Dental: [facility] [phone] Address:Unknown When:09/16/2021 13:11:14 With:Dental: [facility] [phone] Address:Unknown When:09/16/2021 13:11:13 With:Dental: [facility] [phone] Address:Unknown When:09/16/2021 13:11:13 [facility]07-10-2022 Evaluation + Plan noteExtracted from: [...] day(s), # 14 tab(s), Refills(s) 0, Pharmacy: [facility]/pharmacy #[id number], 170, cm, 09/13/21 12:18:00 EDT, Height/Length Dosing, 75, kg, 09/13/21 12:18:00 EDT, Weight Dosing penicillin V potassium, 500 mg = 1 tab(s), Oral, TID, Take one tab by mouth 3 times a day. # 30, X 10 day(s), # 30 tab(s), Refills(s) 0, Pharmacy: [facility]acy #[id number], 170, cm, 09/13/21 12:18:00 EDT, Height/Length Dosing, 75, kg, 09/13/21 12:18:00 EDT, Weight Dosing [facility] App[facility]ments Appointment Date:06/22/2022 02:20:00 PM Scheduled Provider:KATELYN ROBERTS CNP [facility]ments Appointment Date:11/09/2022 11:20:00 AM Scheduled Provider:Will Mora Location:[facility] Appointment Type:[facility] Evaluation + Plan note Future Appointments Appointment Date:11/16/2022 12:00:00 PM Scheduled Provider: [facility] Type:CV EKG (FT) [facility] Evaluation + Plan note Future Appointments Appointment Date:12/16/2022 02:00:00 PM Scheduled Provider:Huang FLORES MD [facility] App[facility]ments Appointment Date:12/21/2022 08:45:00 AM Scheduled Provider: [facility] Appoint[facility] Type:CV Stress (FT) Appointment Date:01/26/2023 11:45:00 AM Scheduled Provider:Huang FLORES MD [facility] Appointment Type:Cardiology Follow Up (FT) Future Scheduled Tests Radiology* Echo Transthoracic Complete 12/16/22 * ECG Stress Exercise [facility]21/22 [facility]ments Appointment Date:01/26/2023 11:45:00 AM Scheduled Provider:Huang FLORES MD [facility] Appointment Type:Cardiology Follow Up (FT) Future Scheduled Tests Radiology* Echo Transthoracic Complete 12/16/22 [facility] Appointment Date:01/18/2023 10:30:00 AM Scheduled Provider:Preethi BARBOSA CNP [facility] Appointment Type:Cardiology Follow Up (FT) Future Scheduled Tests Radiology* Echo Transthoracic Complete 12/16/22 [facility] App[facility]ments Appointment Date:04/06/2023 01:00:00 PM Scheduled Provider:Huang FLORES MD [facility] Appointment Type:Cardiology Follow Up (FT) Future Scheduled Tests Radiology* Echo Transthoracic Complete [facility]/16/22 [facility] Orthostatic hypotension- Primary Chest pain, unspecified type Palpitations Pre-op testing Unspecified pre-operative examination documented in this encounter [facility] Work Phone: Evaluation noteNo assessment information available [facility] Work Phone: Hospital course Narrative No data available for this section [facility] No data available for this section [facility] [place] note No data available for this section [facility] Summary Purpose Family History No [...] History Records FoundNo Family History Records Found Advance Directives No Advanced Directives Records Found Advance Directive Response Recorded Date/ Time Advance Directives No March 30, 2023 8:23am Reason for Referral Specialty Diagnoses / Procedures Referred By Contac t Referred To Contact Cardiology Diagnoses Orthostatic hypotension Procedures Tilt Table Alize Doty MD [address] [place] [address] Referral ID Status Reason Start Date Expiration Date V isits Requested Visits Authorized Pending Review 03/21/2023 03/20/2024 1 1 Specialty Diagnoses / Procedures Referred By Contac t Referred To Contact Diagnoses Chest pain, unspecified type Procedures ECG 12 lead (Clinic Performed) Alize Doty MD [address] [place] [address] Referral ID Status Reason Start Date Expiration Date V isits Requested Visits Authorized [id number] Authorized 03/21/2023 03/20/2024 1 1 Chief Complaint and Reason for Visit Chief Complaint I95.1;Z01.818 Chief Complaint I95.1;Z01.818 Unknown Additional Source Comments Care Team (unrecognized sect ion and content) Tax Investigator Relationship Specialty Start Date End Date Will Hawthorne APRN-VALET SERVICE ATTENDANT [address] [place] [address] PCP - General 03/21/23 Team Status: Active [...] March 30, 2023 End: March 30, 2023 Team Status: Inactive Member Role Status Dates KELLI Clayton Primary Care Provider Active Start: April 26, 2023 End: April 26, 2023 Jesse Roajs Attending Provider Active Start: penrose 2023 End: April 26, 2023 INFORMATION SOURCE (unrecogn ized section and content) DATE CREATED AUTHOR 04/19/2022 [facility] DATE CREATED AUTHOR AUTHOR'S ORGANIZ ATION 03/22/2023 [facility] DATE CREATED AUTHOR AUTHOR'S ORGANIZ ATION 04/26/2023 [facility] EPIC DATE CREATED AUTHOR AUTHOR'S ORGANIZ ATION 05/03/[address] [facility] DATE CREATED AUTHOR AUTHOR'S ORGANIZ ATION 05/25/2023 [facility] Reason for Visit (unrecogniz ed section and content) Reason Comments Establish Care Syncope Specialty Diagnoses / Procedures Referred By Contac t Referred To Contact Diagnoses Chest pain, unspecified type Procedures ECG 12 lead (Clinic Performed) Alize Doty MD [address] [place] [address] [address] [place] [address] Referral ID Status Reason Start Date Expiration [...] BE BASED ON THE PRIMARY CLINICAL RECORDS. [facility]. provides no warranty or guarantee of the accuracy or completeness of information in this document.
== END 2023-06-01 10:00 | disposition home or self-care (01) ==
LOC: PST 10:00
PROVIDERS: PCP Nurse Practitioner; Visit Provider Obstetrics & Gynecology
DX: Z01.818 Encounter for other preprocedural examination (principal); Z30.2 Encounter for sterilization; R10.2 Pelvic and perineal pain; N93.9 Abnormal uterine and vaginal bleeding, unspecified; N92.1 Excessive and frequent menstruation with irregular cycle

== ENCOUNTER 2023-06-10 08:20 | Day surgery (SDC) | payer OTHER, SELFPAY ==
[2023-06-01 10:12] VITALS: BP 112/72; PULSE 74; RESP 16; TEMP 36.2; O2SAT 100; BMI 24.8
[2023-06-10] VITALS (11 sets, daily range): BP systolic 105–128; BP diastolic 64–78; PULSE 68–96; TEMP 36.5–36.8; O2SAT 93–99; BMI 25.5
[2023-06-10 08:30] LABS: Basophils Absolute Auto 0.1 10^3/uL (0.0-0.1); Basophils Percent Auto 0.8 % (0.2-2.0); Eosinophils Absolute Auto 0.3 10^3/uL (0.0-0.7); Eosinophils Percent Auto 3.3 % (0.9-7.0); Hematocrit 38.9 % (36.0-48.0); Immature Granulocytes Abs Auto 0.02 10^3/uL (0.00-0.03); Immature Granulocytes Pct Auto 0.3 % (0.0-0.5); Lymphocytes Absolute Auto 2.1 10^3/uL (1.2-3.8); Lymphocytes Percent Auto 27.1 % (20.5-60.0); Mean Corpuscular HGB Conc 33.4 g/dL (29.9-35.2); Mean Corpuscular Hemoglobin 29.5 pg (26.7-34.0); Mean Corpuscular Volume 88.2 fL (81.0-99.0); Mean Platelet Volume 10.2 fL (9.5-13.5); Monocytes Absolute Auto 0.6 10^3/uL (0.3-0.8); Monocytes Percent Auto 7.4 % (1.7-12.0); Neutrophils Absolute Auto 4.8 10^3/uL (1.4-6.5); Neutrophils Percent Auto 61.1 % (43.0-75.0); Platelet Count 216 10^3/uL (150-450); Red Blood Count 4.41 10^6/uL (4.20-5.40); Red Cell Distribution Width 13.4 % (11.0-15.0); White Blood Count 7.8 10^3/uL (4.0-11.0)
[2023-06-10 08:53] LABS: HCG Quantitative <1 mIU/mL
[2023-06-10] MEDS: LACTATED RINGER'S SOLUTION 1,000 ML 50 ML IV ×2 (09:01→11:35)
--- NOTE | 2023-06-10 11:43 | P.ON_ITS ---
Brief Operative Note Date of procedure: 06/10/23 Pre-op diagnosis general: menorrhagia, desires sterilization Post-op diagnosis: same as pre-op Procedure: NAME OF PROCEDURE: robotic assisted Laparoscopic bilateral salpingectomy, with Sol endometrial ablation with hysteroscopy PROCEDURE: The patient was taken back to the OR where she was prepped and draped in the normal sterile fashion after being placed in the dorsal lithotomy position, after being placed under general anesthesia without difficulty. a weighted speculum was then placed into the vagina. Pap and endometrial bx were performed without difficultyThe anterior lip was grasped with a single tooth tenaculum. The patient was then sounded to approximatley 9cm. The patient was gently sounded using Hegar dilators and the hysteroscope was passed through the cervix into the uterus where both ostia were seen. No gross evidence of polyps, fibroids or malignancy. The cervical length was noted to be 4cm. The Sol ablation apparatus was set to approximately 5cm in length. This was placed in through the cervix and into the uterus. After the seal was tested, at that time the total ablation of 120 seconds was performed with the Sol without difficulty. All instruments were removed from the vagina. A wet sponge stick was placed into the patient's vagina. Attention was then turned to the patient's abdomen, where a scalpel was used to make a small infraumbilical incision. The S retractors were then used to dissect the underlying layers until the fascia could be seen. The fascia was then grasped with Stephanie clamps and tented up. A knife was then used to make a small incision to the fascia. The muscle was identified, at that time two sutures of #0 Vicryl on a GI needlewas then used and placed through the fascia. The peritoneum was th en identified and entered bluntly. The 10-4 Yamini was then placed into the patient's abdomen. This was confirmed with direct visualization of the bowel, using the laparoscope. The patient's abdomen was then insufflated using approximately 4 liters of CO2 gas. Survey of the patient's abdomen demonstrated normal appearing ovaries, uterus and tubes. A second and third lateral robotic ports, which was 8mm in size, was then placed laterally after incision was made in the skin under direct visualization. the robotic arms were engaged. The patient's tube on the patient's right side was identified. The tube was then tented up using a grasper. The ligasure was used to transect and coagulate the mesosalpingx from the fimbriated end to the insertion at the uterus, the tube was amputated and removed in its entirety.? Excellent hemostasis was noted. ?This was performed on the contralateral sideas well. The lateral ports were then moved under direct visualization with excellent hemostasis. The abdomen was deinsufflated. All instruments were removed from the patient's abdomen. The fascia was closed using the #0 Vicryl on GI needle. The skin was closed using 4- 0 Vicryl subcuticularly. All instruments were removed from the patient's vagina as well. The patient was taken out of the dorsal lithotomy position and placed in the supine position and taken to recovery in stable condition. Sponge, lap and needle counts were correct x2. ??? Anesthesia: OSVALDO Surgeon: Jesse Rojas Software Licensing Analyst: Amy Rodriguez Estimated blood loss (mL): 5 Pathology: other (tubes) Condition: stable Disposition: PACU Urinary Catheter Management Urinary Catheter Management Urethral: Cath placed during this visit: no
== END 2023-06-10 14:15 | disposition home or self-care (01) ==
PROVIDERS: PCP Nurse Practitioner; Visit Provider Obstetrics & Gynecology
PROC: (CPT 840; principal; 2023-06-10 10:50)
PROC: (CPT 840; 2023-06-10 10:50)
DX: Z30.2 Encounter for sterilization (principal); N92.1 Excessive and frequent menstruation with irregular cycle; N93.9 Abnormal uterine and vaginal bleeding, unspecified; D64.9 Anemia, unspecified; F32.A Depression, unspecified; M79.7 Fibromyalgia; Z87.891 Personal history of nicotine dependence
CPT/HCPCS: 58563; 58661; 36415; 84702; 85025; 88302; 99999; J1094; J1170; J2704

== ENCOUNTER 2023-06-13 12:26 | Emergency (ER) | payer OTHER, SELFPAY ==
[2023-06-13 12:31] VITALS: BP 107/69; PULSE 78; TEMP 36.8; O2SAT 97; BMI 25.4
--- NOTE | 2023-06-13 12:46 | ED.GENADUL1 ---
Documented by User: MAYNOR Adair 06/13/23 12:53 HPI HPI - General Adult General Chief complaint: Allergic Reaction Stated complaint: ALLERGIC REACTION/POST OPERATIVE COMPLICATIONS Time Seen by Provider: 06/13/23 12:39 Source: patient Mode of arrival: walk-in Limitations: no limitations History of Present Illness HPI narrative: Patient is a 27-year-old female who presents to the emergency department for pruritic rash that began in the last day.She had surgery last week for tubal ligation and has Steri-Strips in place To the laparoscopic incisions on her abdomen. She states she has developed a rash over the arms and legs. She denies any new soaps or detergents, no new medications that she has never taken before. She states her throat feels scratchy. She is in no respiratory distress, speaking easily with no noted facial swelling at initial interview. She is not concerned for due to her recent tubal ligation over the weekend. No fevers or vomiting. Related Data Home Medications ?Medication ?Instructions ?Recorded ?Confirmed L.acidophil,rhamnosus-B.breve,longum 1 cap PO DAILY 06/01/23 06/10/23 20 billion cell sprinkle capsule (Probiotic) fluoxetine 20 mg capsule 20 mg PO DAILY 06/01/23 06/10/23 lorazepam 0.5 mg tablet 0.25 mg PO DAILY PRN anxiety 06/01/23 06/10/23 magnesium oxide 500 mg PO DAILY 06/01/23 06/10/23 multivitamin 1 tab PO DAILY 06/01/23 06/10/23 sumatriptan succinate 50 mg tablet 25 mg PO BID PRN migraine headache 06/01/23 06/10/23 Previous Rx's ?Medication ?Instructions ?Recorded hydrocodone 5 mg-acetaminophen 325 1 tab PO Q4H PRN pain 4 days #16 06/10/23 mg tablet tabs ibuprofen 800 mg tablet 800 mg PO Q8H PRN pain 14 days #40 06/10/23 tabs famotidine 20 mg tablet (Pepcid) 20 mg PO BID #10 tabs 06/13/23 hydroxyzine HCl 25 mg tablet 25 mg PO Q6H PRN itching #20 tabs 06/13/23 methylprednisolone 4 mg tablets in See Rx Instructions .Route 06/13/23 a dose pack (Medrol (Talha)) .COMPLEX #21 ea Allergies Allergy/AdvReac Type Severity Reaction Status Date / Time clindamycin Allergy Severe Hives Verified 06/01/23 07:28 cephalexin Allergy Unknown Verified 06/01/23 07:28 Opioid HPI Opioid Management Most Recent Opioid Data: Last Pain Scale 2 06/10/23 08:30 Last Pain Assessment 06/10/23 13:30 Review of Systems ROS Constitutional Denies: fever or chills Ears, nose, mouth, and throat Denies: throat pain or nasal congestion Cardiovascular Denies: chest pain Respiratory Denies: shortness of breath or cough Gastrointestinal Denies: nausea or vomiting Musculoskeletal Denies: back pain Integumentary/Breast Reports: rash and itching; Denies: redness or skin pain Neurological Denies: headache Hematologic/Lymphatic Denies: easy bruising or easy bleeding [facility] Medical History (Updated 06/13/23 @ 12:44 by MAYNOR Adair) Normal colonoscopy COVID-19 ?U07.1 - COVID-19 (ICD-10) Suicidal ideation ?R45.851 - Suicidal ideations (ICD-10) PTSD (post-traumatic stress disorder) ?F43.10 - Post-traumatic stress disorder, unspecified (ICD-10) 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, unspecified lower limb (ICD-10) Chronic abdominal pain ?R10.9 - Unspecified abdominal pain (ICD-10) ?G89.29 - Other chronic pain (ICD-10) Cervical strain ?S16.1XXA - Strain of muscle, fascia and tendon at neck level, initial encounter (ICD-10) Anxiety ?F41.9 - Anxiety disorder, unspecified (ICD-10) Anemia ?D64.9 - Anemia, unspecified (ICD-10) Palpitations ?R00.2 - Palpitations (ICD-10) Migraine ?G43.909 - Migraine, unspecified, not intractable, without status migrainosus (ICD-10) Vasovagal syncope ?R55 - Syncope and collapse (ICD-10) Vaginal delivery ?O80 - Encounter for full-term uncomplicated delivery (ICD-10) Shortness of breath ?R06.02 - Shortness of breath (ICD-10) Fibromyalgia ?M79.7 - Fibromyalgia (ICD-10) Depression ?F32.A - Depression, unspecified (ICD-10) Abnormal uterine bleeding (AUB) ?N93.9 - Abnormal uterine and vaginal bleeding, unspecified (ICD-10) Pelvic pain ?R10.2 - Pelvic and perineal pain (ICD-10) Menorrhagia ?N92.0 - Excessive and frequent menstruation with regular cycle (ICD-10) Surgical History (Updated 06/01/23 @ 07:26 by Alisha Page, RN) H/O hand surgery ?Z98.890 - Other specified postprocedural states (ICD-10) Family History (Updated 06/01/23 @ 10:20 by Alisha Page, RN) Other ADHD Asthma FH: mental illness Family history of hypertension POTS (postural orthostatic tachycardia syndrome) Social History Within the past year, how often did you have a drink containing alcohol: monthly or less Smoking status: Former smoker Non-prescribed substance use: denies use Previous occupational history: [employer] Highest level of school completed/degree received: some college, no degree Exam Narrative Exam Narrative: Gen.: Awake, alert, in no distress Head: Normocephalic, atraumatic ENT: Moist mucous membranes; No facial swelling, lip swelling. Airway widely open and patent with uvula midline. Respiratory: No respiratory distress Extremities: Moves extremities equally Psych: Normal mood and affect Neuro: No focal neuro deficit Skin: Warm, dry, intact; Steri-Strips to multiple incisions over the abdomen from laparoscopic surgery, no redness, no significant peeling or blistering noted. All Steri-Strips are intact with no dehiscence. Dried blood noted at the left lower abdomen incision. Patient with a diffuse faint, mildly raised rash over the anterior legs and volar forearms. No mucous membrane involvement. No peeling, crusting or drainage of the skin. No erythema or hives. Constitutional Vital Signs, click to edit/add: Last Vital Signs Temp 98.2 F 06/13/23 12:31 Pulse 78 06/13/23 12:31 Resp 18 06/13/23 12:31 BP 107/69 06/13/23 12:31 Pulse Ox 97 06/13/23 12:31 Course Vital Signs Vital signs: Vital Signs Temperature 98.2 F 06/13/23 12:31 Pulse Rate 78 06/13/23 12:31 Respiratory Rate 18 06/13/23 12:31 Blood Pressure 107/69 06/13/23 12:31 Pulse Oximetry 97 06/13/23 12:31 Temperature 98.2 F 06/13/23 12:31 Pulse Rate 78 06/13/23 12:31 Respiratory Rate 18 06/13/23 12:31 Blood Pressure 107/69 06/13/23 12:31 Pulse Oximetry 97 06/13/23 12:31 Medical Decision Making MDM Narrative Medical decision making narrative: Patient did not take Benadryl prior to arrival because she states it makes her too drowsy. She was given Solu-Medrol and Pepcid in the ER and discharged home with a prescription for hydroxyzine to take at nighttime with Medrol Dosepak and Pepcid for daytime. No evidence of significant allergic reaction or urticaria at this time. Patient instructed to keep the Steri-Strips intact as she may have a mild adhesive allergy but at this time has no significant reaction or redness of the abdomen to warrant removing the Steri-Strips early. She should contact her surgeon for further instructions on this. Medications as prescribed and return to the ER if symptoms change or worsen. Medical Records Medical records reviewed: Yes I reviewed the patient's medical records Discharge Plan Discharge Stand Alone Forms: Portal Instructions Chief Complaint: Allergic Reaction Clinical Impression: Rash Patient Disposition: Home, Self-Care Time of Disposition Decision: 12:44 Condition: Good Prescriptions / Home Meds: New famotidine [Pepcid] 20 mg tablet 20 mg PO BID Qty: 10 0RF hydroxyzine HCl 25 mg tablet 25 mg PO Q6H PRN (Reason: itching) Qty: 20 0RF methylprednisolone [Medrol (Talha)] 4 mg tablets,dose pack See Rx Instructions .ROUTE .COMPLEX Qty: 21 0RF Rx Instructions: Taper as directed No Action fluoxetine 20 mg capsule 20 mg PO DAILY sumatriptan succinate 50 mg tablet 25 mg PO BID PRN (Reason: migraine headache) lorazepam 0.5 mg tablet 0.25 mg PO DAILY PRN (Reason: anxiety) magnesium oxide 500 mg magnesium tablet 500 mg PO DAILY multivitamin Tablet 1 tab PO DAILY Probiotic 20 billion cell capsule, sprinkle 1 cap PO DAILY ibuprofen 800 mg tablet 800 mg PO Q8H PRN (Reason: pain) 14 Days Qty: 40 0RF hydrocodone-acetaminophen 5-325 mg tablet 1 tab PO Q4H PRN (Reason: pain) 4 Days Qty: 16 0RF Print Language: Pakistani Instructions: Acute Rash (ED) Referrals: WILL HAWTHORNE [Primary Care Provider] - 1 week Discharge Date/Time: 06/13/23 12:57 Documented by User: Hernando Carpenter 06/13/23 18:14 HPI HPI - General Adult General Chief complaint: Allergic Reaction Stated complaint: ALLERGIC REACTION/POST OPERATIVE COMPLICATIONS Time Seen by Provider: 06/13/23 12:39 Related Data Home Medications ?Medication ?Instructions ?Recorded ?Confirmed L.acidophil,rhamnosus-B.breve,longum 1 cap PO DAILY 06/01/23 06/10/23 20 billion cell sprinkle capsule (Probiotic) fluoxetine 20 mg capsule 20 mg PO DAILY 06/01/23 06/10/23 lorazepam 0.5 mg tablet 0.25 mg PO DAILY PRN anxiety 06/01/23 06/10/23 magnesium oxide 500 mg PO DAILY 06/01/23 06/10/23 multivitamin 1 tab PO DAILY 06/01/23 06/10/23 sumatriptan succinate 50 mg tablet 25 mg PO BID PRN migraine headache 06/01/23 06/10/23 Previous Rx's ?Medication ?Instructions ?Recorded hydrocodone 5 mg-acetaminophen 325 1 tab PO Q4H PRN pain 4 days #16 06/10/23 mg tablet tabs ibuprofen 800 mg tablet 800 mg PO Q8H PRN pain 14 days #40 06/10/23 tabs famotidine 20 mg tablet (Pepcid) 20 mg PO BID #10 tabs 06/13/23 hydroxyzine HCl 25 mg tablet 25 mg PO Q6H PRN itching #20 tabs 06/13/23 methylprednisolone 4 mg tablets in See Rx Instructions .Route 06/13/23 a dose pack (Medrol (Talha)) .COMPLEX #21 ea Allergies Allergy/AdvReac Type Severity Reaction Status Date / Time clindamycin Allergy Severe Hives Verified 06/01/23 07:28 cephalexin Allergy Unknown Verified 06/01/23 07:28 Opioid HPI Opioid Management Most Recent Opioid Data: Last Pain Scale 2 06/10/23 08:30 Last Pain Assessment 06/10/23 13:30 PFSH PFS Medical History (Updated 06/13/23 @ 12:44 by MAYNOR Adair) Normal colonoscopy COVID-19 ?U07.1 - COVID-19 (ICD-10) Suicidal ideation ?R45.851 - Suicidal ideations (ICD-10) PTSD (post-traumatic stress disorder) ?F43.10 - Post-traumatic stress disorder, unspecified (ICD-10) 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, unspecified lower limb (ICD-10) Chronic abdominal pain ?R10.9 - Unspecified abdominal pain (ICD-10) ?G89.29 - Other chronic pain (ICD-10) Cervical strain ?S16.1XXA - Strain of muscle, fascia and tendon at neck level, initial encounter (ICD-10) Anxiety ?F41.9 - Anxiety disorder, unspecified (ICD-10) Anemia ?D64.9 - Anemia, unspecified (ICD-10) Palpitations ?R00.2 - Palpitations (ICD-10) Migraine ?G43.909 - Migraine, unspecified, not intractable, without status migrainosus (ICD-10) Vasovagal syncope ?R55 - Syncope and collapse (ICD-10) Vaginal delivery ?O80 - Encounter for full-term uncomplicated delivery (ICD-10) Shortness of breath ?R06.02 - Shortness of breath (ICD-10) Fibromyalgia ?M79.7 - Fibromyalgia (ICD-10) Depression ?F32.A - Depression, unspecified (ICD-10) Abnormal uterine bleeding (AUB) ?N93.9 - Abnormal uterine and vaginal bleeding, unspecified (ICD-10) Pelvic pain ?R10.2 - Pelvic and perineal pain (ICD-10) Menorrhagia ?N92.0 - Excessive and frequent menstruation with regular cycle (ICD-10) Surgical History (Updated 06/01/23 @ 07:26 by Alisha Page RN) H/O hand surgery ?Z98.890 - Other specified postprocedural states (ICD-10) Family History (Updated 06/01/23 @ 10:20 by Alisha Page RN) Other ADHD Asthma FH: mental illness Family history of hypertension POTS (postural orthostatic tachycardia syndrome) Social History Within the past year, how often did you have a drink containing alcohol: monthly or less Smoking status: Former smoker Non-prescribed substance use: denies use Previous occupational history: [employer] Highest level of school completed/degree received: some college, no degree Exam Constitutional Vital Signs, click to edit/add: Last Vital Signs Temp 98.2 F 06/13/23 12:31 Pulse 78 06/13/23 12:31 Resp 18 06/13/23 12:31 BP 107/69 06/13/23 12:31 Pulse Ox 97 06/13/23 12:31 Course Vital Signs Vital signs: Vital Signs Temperature 98.2 F 06/13/23 12:31 Pulse Rate 78 06/13/23 12:31 Respiratory Rate 18 06/13/23 12:31 Blood Pressure 107/69 06/13/23 12:31 Pulse Oximetry 97 06/13/23 12:31 Temperature 98.2 F 06/13/23 12:31 Pulse Rate 78 06/13/23 12:31 Respiratory Rate 18 06/13/23 12:31 Blood Pressure 107/69 06/13/23 12:31 Pulse Oximetry 97 06/13/23 12:31 Medical Decision Making MDM Narrative Medical decision making narrative: Patient did not take Benadryl prior to arrival because she states it makes her too drowsy. She was given Solu-Medrol and Pepcid in the ER and discharged home with a prescription for hydroxyzine to take at nighttime with Medrol Dosepak and Pepcid for daytime. No evidence of significant allergic reaction or urticaria at this time. Patient instructed to keep the Steri-Strips intact as she may have a mild adhesive allergy but at this time has no significant reaction or redness of the abdomen to warrant removing the Steri-Strips early. She should contact her surgeon for further instructions on this. Medications as prescribed and return to the ER if symptoms change or worsen. For this patient encounter I reviewed the mid-level provider?s documentation, medical decision-making and treatment plan, and I personally spent time with this patient. Shared APC visit, physician attestation: [id number]: The visit was performed by both a physician and an APC. I performed all aspects of MDM as documented. - DO Lilliam Discharge Plan Discharge Stand Alone Forms: Portal Instructions Chief Complaint: Allergic Reaction Clinical Impression: Rash Patient Disposition: Home, Self-Care Time of Disposition Decision: 12:44 Condition: Good Prescriptions / Home Meds: New famotidine [Pepcid] 20 mg tablet 20 mg PO BID Qty: 10 0RF hydroxyzine HCl 25 mg tablet 25 mg PO Q6H PRN (Reason: itching) Qty: 20 0RF methylprednisolone [Medrol (Talha)] 4 mg tablets,dose pack See Rx Instructions .ROUTE .COMPLEX Qty: 21 0RF Rx Instructions: Taper as directed No Action fluoxetine 20 mg capsule 20 mg PO DAILY sumatriptan succinate 50 mg tablet 25 mg PO BID PRN (Reason: migraine headache) lorazepam 0.5 mg tablet 0.25 mg PO DAILY PRN (Reason: anxiety) magnesium oxide 500 mg magnesium tablet 500 mg PO DAILY multivitamin Tablet 1 tab PO DAILY Probiotic 20 billion cell capsule, sprinkle 1 cap PO DAILY ibuprofen 800 mg tablet 800 mg PO Q8H PRN (Reason: pain) 14 Days Qty: 40 0RF hydrocodone-acetaminophen 5-325 mg tablet 1 tab PO Q4H PRN (Reason: pain) 4 Days Qty: 16 0RF Print Language: Pakistani Instructions: Acute Rash (ED) Referrals: WILL HAWTHORNE [Primary Care Provider] - 1 week Discharge Date/Time: 06/13/23 12:57
[2023-06-13] MEDS: METHYLPREDNISOLONE SOD SUCC PF 125 MG/2 ML VIAL IM (12:51)
[2023-06-13] MEDS: FAMOTIDINE 20 MG TABLET 40 MG PO (12:52)
== END 2023-06-13 12:57 | disposition home or self-care (01) ==
PROVIDERS: Emergency Provider Emergency Medicine; PCP Nurse Practitioner
DX: R21 Rash and other nonspecific skin eruption (principal); Z79.899 Other long term (current) drug therapy; Z87.891 Personal history of nicotine dependence; Z98.890 Other specified postprocedural states; Z86.16 Personal history of COVID-19; F43.10 Post-traumatic stress disorder, unspecified; F41.9 Anxiety disorder, unspecified; M79.7 Fibromyalgia
CPT/HCPCS: 96372; 99284; J2919

== ENCOUNTER 2024-06-26 19:57 | Outpatient (REF) | payer OTHER, SELFPAY ==
[2024-07-02 13:13] LABS: Age Gdln ACOG Testing Note (.); IGP, rfx Aptima HPV ASCU Note (.)
== END 2024-06-26 19:58 | disposition home or self-care (01) ==
LOC: LAB 19:57
PROVIDERS: PCP Nurse Practitioner; Visit Provider Obstetrics & Gynecology
DX: Z01.419 Encounter for gynecological examination (general) (routine) without abnormal findings (principal)
CPT/HCPCS: 88175